=== PATIENT | female | born 1940 | race Caucasian/White ===

== ENCOUNTER → 2016-12-12 | Outpatient (CLI) | payer MEDICARE ==
--- NOTE | 2016-12-12 13:13 | REP ---
LIMITED ABDOMEN ULTRASOUND: HISTORY: Right upper quadrant pain. There are no filling defects in the gallbladder. The gallbladder wall measures 2.6 mm. The common bile duct measures 4.6 mm. The liver and pancreas are normal in echogenicity. The right kidney is normal in echogenicity. The right kidney measures 5.4 cm in transverse x 3.8 cm in AP x 11 cm in cephalocaudal dimensions. There is no hydronephrosis or mass. IMPRESSION: Normal abdominal ultrasound. Signed by Shade Foster MD 12/12/2016 01:34 P
== END ==
LOC: M RAD 08:56
PROVIDERS: ATTEND Internal Medicine Cardiovascular Disease
DX: I48.0 Paroxysmal atrial fibrillation (principal); I71.2 Thoracic aortic aneurysm, without rupture; R42 Dizziness and giddiness; I10 Essential (primary) hypertension; E66.9 Obesity, unspecified; R06.02 Shortness of breath; R07.9 Chest pain, unspecified

== ENCOUNTER → 2017-05-07 | Outpatient (REF) | payer MEDICARE ==
[2017-05-07 21:11] LABS: BASO # 0.1 10^3/uL (0.0-0.2); BASO % 1.5 % (0.0-1.0); EOS # 0.1 10^3/uL (0.0-0.50); EOS % 1.7 % (0.0-3.0); IMMATURE GRANULOCYTE % 0.2 % (0-0); LYMPH # 1.8 10^3/uL (1.5-4.5); LYMPH % 34.9 % (24.0-44.0); MEAN CORPUSCULAR HEMOGLOBIN 30.2 pg (27.0-33.0); MEAN CORPUSCULAR VOLUME 94.3 fl (80.0-96.0); MONO # 0.3 10^3/uL (0.0-0.8); MONO % 5.1 % (0.0-5.0); NEUTROPHILS % 56.6 % (36.0-66.0); PLATELET COUNT, AUTOMATED 181 10^3/uL (150-450); RED CELL DISTRIBUTION WIDTH 13.6 % (11.5-14.5); WHITE BLOOD COUNT 5.3 10^3/uL (4.0-10.0)
[2017-05-07 21:27] LABS: FOLATE 19.5 NG/ML; VITAMIN B12 LEVEL 291 PG/ML
[2017-05-07 21:33] LABS: ALBUMIN 3.6 GM/DL (3.2-5.2); ALBUMIN/GLOBULIN RATIO 1.03 (1.00-1.93); ALKALINE PHOSPHATASE 77 U/L (45-117); ALT/SGPT 15 U/L (12-78); ANION GAP 8 MEQ/L (8-16); AST/SGOT 9 U/L (15-37); BILIRUBIN,TOTAL 0.4 MG/DL (0.2-1.0); BLOOD UREA NITROGEN 17 MG/DL (7-18); CALCIUM LEVEL 8.7 MG/DL (8.8-10.2); CARBON DIOXIDE LEVEL 28 MEQ/L (21-32); CHLORIDE LEVEL 108 MEQ/L (98-107); CREATININE FOR GFR 0.76 MG/DL (0.55-1.02); GLOMERULAR FILTRATION RATE > 60.0 (>39); GLUCOSE, FASTING 140 MG/DL (83-110); POTASSIUM SERUM 3.6 MEQ/L (3.5-5.1); SODIUM LEVEL 144 MEQ/L (136-145); TOTAL PROTEIN 7.1 GM/DL (6.4-8.2)
[2017-05-07 21:41] LABS: ERYTHROCYTE SEDIMENTATION RATE 30 mm/hr (0-30)
[2017-05-09 12:07] LABS: ALBUMIN % 58.4 % (55.8-66.1)
[2017-05-09 12:08] LABS: ALBUMIN 4.15 GM/DL (3.29-5.55); GAMMA GLOBULIN % 16.7 % (11.1-18.8)
[2017-05-14 08:06] LABS: SJOGREN'S ANTI SS-A <0.2 AI (0.0-0.9); SJOGREN'S ANTI SS-B <0.2 AI (0.0-0.9); VITAMIN E LEVEL 27.7 mg/L (6.5-21.5)
== END ==
LOC: M LABDRAWC 17:34
PROVIDERS: ATTEND Psychiatry & Neurology Neurology
DX: R42 Dizziness and giddiness (principal); Z79.899 Other long term (current) drug therapy

== ENCOUNTER → 2017-06-20 | Outpatient (REF) | payer MEDICARE ==
[2017-06-21 12:00] LABS: THYROID PEROXIDASE ANTIBODY < 28.0 U/ML (<60.0)
[2017-06-22 00:14] LABS: FREE T4 0.78 NG/DL (0.76-1.46)
== END ==
LOC: M SFHCCLAY 15:49
PROVIDERS: ATTEND Family Medicine
DX: E04.2 Nontoxic multinodular goiter (principal)
CPT/HCPCS: 84439; 84481; 86376; 86800; G0463

== ENCOUNTER 2017-06-27 11:38 | Outpatient (CLI) | payer MEDICARE ==
--- NOTE | 2017-06-27 14:34 | REP ---
MR angiography the brain without contrast: History: Dizziness. Tension headaches. Technique: 3-D [id number] MR angiography of the brain is acquired in the usual fashion and maximal intensity projection images were generated in rotational format about the vertical and horizontal axes. In addition, source axial T1-weighted images are viewed in cine mode. MR angiographic findings: The distal vertebral arteries are patent and co-dominant. Basilar artery is a little tortuous but widely patent. The posterior cerebral and superior cerebellar vessels are normal and symmetric. The distal internal carotid arteries are unremarkable. Anterior and middle cerebral arteries appear intact. There is no visible ward aneurysm or arteriovenous malformation. Impression: Unremarkable MR angiography the brain. Signed by Leoncio Tellez MD 06/27/2017 02:26 P
[2017-06-27 16:15] VITALS: BP 154/65
--- NOTE | 2017-06-27 16:22 | REP ---
MRI brain without contrast: History: Dizziness. Tension headache. Comparison CT brain study is from March 12, 2016. Technique: Axial and sagittal imaging planes are utilized for T1 and T2-weighted scans. Sequences include spin-echo, fast spin echo, FLAIR, and diffusion weighted sequences. MRI findings: Bony calvarium is intact. Craniocervical junction and upper cervical cord are normal in appearance. There is no MR evidence of significant paranasal sinus disease. No intraorbital abnormality is seen. Diffusion weighted scan show no evidence of acute ischemia. There is a focus of hemosiderin staining, 0.8 cm in greatest diameter, in the vermis of the cerebellum. This is in the midline at the top of the tentorial notch. It is compatible with a vascular malformation such as cavernoma. This is compatible with old hemosiderin deposition from previous hemorrhage. There is no evidence of acute hemorrhage. No mass effect or enlargement is seen. There are small vessel atherosclerotic changes in the periventricular white matter of the frontal lobes bilaterally. There is prominent hyperostosis frontalis interna and diffuse thickening of the bony calvarium as seen on CT study. No extra-axial fluid collection is seen. No mass or midline shift is observed. Impression: 1. 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 This measures 8 mm in greatest diameter. 2. Diffuse calvarial thickening and hyperostosis frontalis interna. 3. Small vessel changes. 4. Otherwise negative MRI study of the brain. Signed by Leoncio Tellez MD 06/28/2017 08:15 A
--- NOTE | 2017-06-27 17:35 | REP ---
MR angiography of the carotids without and with IV gadolinium: History: Dizziness. Tension headache. Technique: 2-D [id number] pre contrast and 3-D post contrast MRA angiography imaging is acquired. Gadolinium enhancement dose is 25 ml of intravenous ProHance. Source axial and coronal images are reviewed. Maximal intensity projection images are generated. Findings: Postcontrast images show suboptimal vascular flow labeling and are largely uninterpretable. However, the precontrast images demonstrate that the distal common carotid arteries are widely patent. There is some plaquing in the right carotid bulb with 40% narrowing of the proximal ICA on the right side. No significant plaquing is visible on the left. The ICAs are otherwise unremarkable. The vertebral arteries are widely patent and codominant. On source images postcontrast, the great vessel origins are unremarkable. Impression: Right carotid bulb plaquing with approximately 40% narrowing of the origin of the right ICA. No high-grade stenosis seen on either side. Signed by Leoncio Tellez MD 06/28/2017 08:16 A
== END 2017-06-27 16:21 | disposition home or self-care (01) ==
LOC: M RAD 11:38
PROVIDERS: ATTEND Psychiatry & Neurology Neurology
DX: G44.209 Tension-type headache, unspecified, not intractable (principal); R42 Dizziness and giddiness; M50.30 Other cervical disc degeneration, unspecified cervical region
CPT/HCPCS: 70544; 70549; 70551; 72141; A9576

== ENCOUNTER → 2017-06-27 | Outpatient (CLI) | payer MEDICARE ==
[~2017-06-27] MED LIST: PROHANCE 279.3MG/ML 15ML VIAL (A9576) As Ordered ONE
--- NOTE | 2017-06-27 16:43 | REP ---
MRI cervical spine without contrast: History: Neck pain question disc herniation. Technique: Sagittal and axial T1 and T2-weighted scans are acquired in the usual fashion with and without fat saturation. Sequences include spin echo, turbo spin-echo, and STIR imaging sequences. MRI findings: Incidental note is made of a 6.5 cm heterogeneous T2 hyperintense partially cystic nodule in the right lobe of the thyroid. The left thyroid lobe is somewhat heterogeneous as well. The trachea is displaced to the left by the right thyroid lesion. There is straightening of the normal cervical lordosis. Craniocervical junction is unremarkable. Cervical cord is normal in coarse caliber and signal intensity. Axial and sagittal images at the C2-3 level show no significant abnormality. At C3-4, there is borderline canal size. Minimal diffuse disc bulging is seen. There is mild uncovertebral spurring on the left. Mid sagittal AP dimension of the thecal sac at C3-4 is 9 mm. At C4-5, there is mild central canal stenosis due to bulging disc and osteophytic ridging. The mid sagittal dimension of the thecal sac is 6 mm. CSF signal is effaced from the canal. There is right greater than left bilateral uncovertebral spurring. Diffuse disc bulging. At C 5-6, there are similar findings with diffuse disc bulging and osteophytic ridging. Central canal stenosis is seen with mild cord compression. Mid sagittal dimension of the thecal sac is 6 mm. There is bilateral uncovertebral spurring producing neural foraminal narrowing. At C6-C7, there is mild diffuse disc bulging and osteophytic ridging. No cord compression is seen. There is mild right-sided uncovertebral spurring. C7-T1 level shows no significant abnormality. Impression: 1. Degenerative spondylosis changes. 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 Multilevel uncovertebral spurring producing neural foraminal narrowing. 2. Incidental note is made of a 6.5 cm right thyroid nodule versus cyst. This displaces the trachea to the left. Signed by Leoncio Tellez MD 06/28/2017 08:15 A
== END ==
LOC: M RAD 11:47
PROVIDERS: ATTEND Orthopaedic Surgery
DX: M50.30 Other cervical disc degeneration, unspecified cervical region (principal)

== ENCOUNTER → 2017-07-11 | Outpatient (CLI) | payer MEDICARE ==
[2017-07-11 16:26] LABS: ANION GAP 5 MEQ/L (8-16); BLOOD UREA NITROGEN 13 MG/DL (7-18); CALCIUM LEVEL 8.4 MG/DL (8.8-10.2); CARBON DIOXIDE LEVEL 31 MEQ/L (21-32); CHLORIDE LEVEL 108 MEQ/L (98-107); CREATININE FOR GFR 0.53 MG/DL (0.55-1.02); GLOMERULAR FILTRATION RATE > 60.0 (>39); GLUCOSE, FASTING 103 MG/DL (83-110); POTASSIUM SERUM 3.6 MEQ/L (3.5-5.1); SODIUM LEVEL 144 MEQ/L (136-145)
== END ==
LOC: M LAB 14:36
DX: Z01.812 Encounter for preprocedural laboratory examination (principal); G56.01 Carpal tunnel syndrome, right upper limb
CPT/HCPCS: 80048

== ENCOUNTER → 2017-07-17 | Outpatient (REF) | payer MEDICARE | LOC: M SFHCCLAY 11:12 | DX: M79.661 Pain in right lower leg (principal); Z53.8 Procedure and treatment not carried out for other reasons ==

== ENCOUNTER → 2017-07-18 | Outpatient (REF) | payer MEDICARE ==
[2017-07-18 12:40] LABS: D-DIMER QUANT 488.7 ng/ml (<500)
== END ==
LOC: M LABDRAW1 10:04
DX: M79.661 Pain in right lower leg (principal)
CPT/HCPCS: 36415

== ENCOUNTER → 2017-12-26 | Outpatient (REF) | payer MEDICARE ==
[2017-12-26 16:49] LABS: HEMATOCRIT 39.5 % (36.0-47.0); HEMOGLOBIN 12.7 g/dl (12.0-15.5); MEAN CORPUSCULAR HEMOGLOBIN 29.7 pg (27.0-33.0); MEAN CORPUSCULAR HGB CONC 32.2 g/dl (32.0-36.5); MEAN CORPUSCULAR VOLUME 92.5 fl (80.0-96.0); PLATELET COUNT, AUTOMATED 180 10^3/uL (150-450); RED BLOOD COUNT 4.27 10^6/uL (4.00-5.40); RED CELL DISTRIBUTION WIDTH 13.5 % (11.5-14.5); WHITE BLOOD COUNT 6.4 10^3/uL (4.0-10.0)
[2017-12-26 16:57] LABS: VITAMIN B12 LEVEL 194 PG/ML (247-911)
[2017-12-26 17:01] LABS: ALBUMIN 3.6 GM/DL (3.2-5.2); ALBUMIN/GLOBULIN RATIO 1.06 (1.00-1.93); ALKALINE PHOSPHATASE 78 U/L (45-117); ALT/SGPT 15 U/L (12-78); ANION GAP 8 MEQ/L (8-16); AST/SGOT 12 U/L (7-37); BILIRUBIN,TOTAL 0.4 MG/DL (0.2-1.0); BLOOD UREA NITROGEN 14 MG/DL (7-18); CALCIUM LEVEL 8.6 MG/DL (8.8-10.2); CARBON DIOXIDE LEVEL 28 MEQ/L (21-32); CHLORIDE LEVEL 112 MEQ/L (98-107); CREATININE FOR GFR 0.68 MG/DL (0.55-1.30); FREE T4 0.88 NG/DL (0.76-1.46); GLOMERULAR FILTRATION RATE > 60.0 (>39); GLUCOSE, FASTING 97 MG/DL (70-100); POTASSIUM SERUM 4.1 MEQ/L (3.5-5.1); SODIUM LEVEL 148 MEQ/L (136-145); THYROID STIMULATING HORMONE 0.407 uIU/ML (0.358-3.740)
== END ==
LOC: M SFHCCLAY 12:07
DX: J45.20 Mild intermittent asthma, uncomplicated (principal); R53.82 Chronic fatigue, unspecified
CPT/HCPCS: 84443

== ENCOUNTER → 2018-05-22 | Outpatient (CLI) | payer MEDICARE | LOC: M SLEEP 19:22 | DX: G47.33 Obstructive sleep apnea (adult) (pediatric) (principal); G47.61 Periodic limb movement disorder | CPT/HCPCS: 95810 ==

== ENCOUNTER → 2018-05-26 | Outpatient (REF) | payer MEDICARE ==
[2018-05-26 17:49] LABS: BASO # 0.1 10^3/uL (0.0-0.2); BASO % 1.5 % (0.0-1.0); EOS # 0.1 10^3/uL (0.0-0.50); EOS % 2.3 % (0.0-3.0); HEMATOCRIT 39.8 % (36.0-47.0); HEMOGLOBIN 12.7 g/dl (12.0-15.5); IMMATURE GRANULOCYTE % 0.2 % (0-3.0); LYMPH # 1.9 10^3/uL (1.5-4.5); LYMPH % 31.2 % (24.0-44.0); MEAN CORPUSCULAR HEMOGLOBIN 30.2 pg (27.0-33.0); MEAN CORPUSCULAR HGB CONC 31.9 g/dl (32.0-36.5); MEAN CORPUSCULAR VOLUME 94.5 fl (80.0-96.0); MONO # 0.4 10^3/uL (0.0-0.8); MONO % 6.4 % (0.0-5.0); NEUTROPHILS # 3.5 10^3/uL (1.8-7.7); NEUTROPHILS % 58.4 % (36.0-66.0); PLATELET COUNT, AUTOMATED 195 10^3/uL (150-450); RED BLOOD COUNT 4.21 10^6/uL (4.00-5.40); RED CELL DISTRIBUTION WIDTH 13.1 % (11.5-14.5)
[2018-05-26 18:00] LABS: ALBUMIN 3.6 GM/DL (3.2-5.2); ALBUMIN/GLOBULIN RATIO 1.09 (1.00-1.93); ALKALINE PHOSPHATASE 73 U/L (45-117); ALT/SGPT 17 U/L (12-78); ANION GAP 6 MEQ/L (8-16); AST/SGOT 12 U/L (7-37); BILIRUBIN,TOTAL 0.4 MG/DL (0.2-1.0); BLOOD UREA NITROGEN 12 MG/DL (7-18); CALCIUM LEVEL 9.1 MG/DL (8.8-10.2); CARBON DIOXIDE LEVEL 29 MEQ/L (21-32); CHLORIDE LEVEL 110 MEQ/L (98-107); CREATININE FOR GFR 0.69 MG/DL (0.55-1.30); GLOMERULAR FILTRATION RATE > 60.0 (>39); GLUCOSE, FASTING 117 MG/DL (70-100); POTASSIUM SERUM 3.8 MEQ/L (3.5-5.1); SODIUM LEVEL 145 MEQ/L (136-145); TOTAL PROTEIN 6.9 GM/DL (6.4-8.2)
== END ==
LOC: M SFHCCLAY 10:05
DX: R07.89 Other chest pain (principal); R06.02 Shortness of breath
CPT/HCPCS: 80053

== ENCOUNTER → 2018-05-26 | Outpatient (CLI) | payer MEDICARE | LOC: M CLY 10:23 | DX: I51.7 Cardiomegaly (principal); E04.9 Nontoxic goiter, unspecified; R07.89 Other chest pain; R06.02 Shortness of breath | CPT/HCPCS: 71046; 80053 ==

== ENCOUNTER → 2018-05-26 | Outpatient (REF) | payer MEDICARE ==
[2018-05-26 17:11] LABS: BLOOD UREA NITROGEN 13 MG/DL (7-18)
[2018-05-26 17:11] LABS: CREATININE FOR GFR 0.67 MG/DL (0.55-1.30); GLOMERULAR FILTRATION RATE > 60.0 (>39)
== END ==
LOC: M LABDRAWC 16:25
DX: Q28.3 Other malformations of cerebral vessels (principal)
CPT/HCPCS: 36415

== ENCOUNTER → 2018-07-23 | Outpatient (REF) | payer MEDICARE ==
[2018-07-24 13:05] LABS: HEMATOCRIT 39.1 % (36.0-47.0); HEMOGLOBIN 12.6 g/dl (12.0-15.5); MEAN CORPUSCULAR HEMOGLOBIN 29.8 pg (27.0-33.0); MEAN CORPUSCULAR HGB CONC 32.2 g/dl (32.0-36.5); MEAN CORPUSCULAR VOLUME 92.4 fl (80.0-96.0); PLATELET COUNT, AUTOMATED 195 10^3/uL (150-450); RED BLOOD COUNT 4.23 10^6/uL (4.00-5.40); WHITE BLOOD COUNT 6.8 10^3/uL (4.0-10.0)
[2018-07-24 13:19] LABS: ALBUMIN 3.3 GM/DL (3.2-5.2); ALT/SGPT 16 U/L (12-78); BILIRUBIN,TOTAL 0.2 MG/DL (0.2-1.0); BLOOD UREA NITROGEN 13 MG/DL (7-18); CALCIUM LEVEL 8.2 MG/DL (8.8-10.2); CARBON DIOXIDE LEVEL 27 MEQ/L (21-32); CHLORIDE LEVEL 109 MEQ/L (98-107); CHOLESTEROL LEVEL 231 MG/DL (<200); CREATININE FOR GFR 0.73 MG/DL (0.55-1.30); GLOMERULAR FILTRATION RATE > 60.0 (>39); GLUCOSE, FASTING 105 MG/DL (70-100); HDL CHOLESTEROL 44 MG/DL (>40); LDL CHOLESTEROL 153 MG/DL (<100); NON-HDL-C 187 MG/DL; NT-PRO BNP 431 PG/ML (<450); SODIUM LEVEL 144 MEQ/L (136-145); TOTAL PROTEIN 6.7 GM/DL (6.4-8.2); TRIGLYCERIDES LEVEL 169 MG/DL (<150)
== END ==
LOC: M LABDRAWC 11:13
PROVIDERS: ATTEND Internal Medicine Cardiovascular Disease
DX: I48.0 Paroxysmal atrial fibrillation (principal); I71.2 Thoracic aortic aneurysm, without rupture; R42 Dizziness and giddiness; I10 Essential (primary) hypertension; E66.9 Obesity, unspecified; R06.02 Shortness of breath; R07.9 Chest pain, unspecified

== ENCOUNTER 2018-08-30 15:10 | Emergency (ER) | payer MEDICARE ==
[~2018-08-30] VITALS: Ht 165.1 cm; Wt 99.3 kg
[2018-08-30 15:46] LABS: BASO # 0.1 10^3/uL (0.0-0.2); BASO % 1.4 % (0.0-1.0); EOS # 0.1 10^3/uL (0.0-0.50); EOS % 1.8 % (0.0-3.0); HEMATOCRIT 39.5 % (36.0-47.0); HEMOGLOBIN 12.8 g/dl (12.0-15.5); LYMPH # 1.6 10^3/uL (1.5-4.5); LYMPH % 29.2 % (24.0-44.0); MEAN CORPUSCULAR HEMOGLOBIN 30.3 pg (27.0-33.0); MEAN CORPUSCULAR HGB CONC 32.4 g/dl (32.0-36.5); MEAN CORPUSCULAR VOLUME 93.6 fl (80.0-96.0); MONO # 0.5 10^3/uL (0.0-0.8); MONO % 8.7 % (0.0-5.0); NEUTROPHILS # 3.2 10^3/uL (1.8-7.7); NEUTROPHILS % 58.7 % (36.0-66.0); PLATELET COUNT, AUTOMATED 190 10^3/uL (150-450); RED BLOOD COUNT 4.22 10^6/uL (4.00-5.40); WHITE BLOOD COUNT 5.5 10^3/uL (4.0-10.0)
[2018-08-30 16:16] LABS: BLOOD UREA NITROGEN 13 MG/DL (7-18); CALCIUM LEVEL 8.6 MG/DL (8.8-10.2); CARBON DIOXIDE LEVEL 29 MEQ/L (21-32); CHLORIDE LEVEL 109 MEQ/L (98-107); CPK CREATINE PHOSPHOKINASE 65 U/L (26-192); CREATININE FOR GFR 0.82 MG/DL (0.55-1.30); GLOMERULAR FILTRATION RATE > 60.0 (>32); GLUCOSE, FASTING 114 MG/DL (70-100); POTASSIUM SERUM 3.8 MEQ/L (3.5-5.1); SODIUM LEVEL 145 MEQ/L (136-145); TROPONIN I < 0.02 NG/ML (< 0.10)
[2018-08-30] MEDS ORDERED: GI COCKTAIL 50ML BTL(HYOSCYAMINE/MAALOX/LIDOCAINE VISCOUS)(1:3:1) PO ONE (16:30)
[2018-08-30 16:49] LABS: ALBUMIN 3.2 GM/DL (3.2-5.2); ALT/SGPT 15 U/L (12-78); BILIRUBIN,DIRECT < 0.1 MG/DL (0.0-0.2); BILIRUBIN,TOTAL 0.2 MG/DL (0.2-1.0); LIPASE 144 U/L (73-393); TOTAL PROTEIN 6.9 GM/DL (6.4-8.2)
[2018-08-30 17:56] LABS: INFLUENZA A AMPLIFICATION NEGATIVE (NEGATIVE); INFLUENZA B AMPLIFICATION NEGATIVE (NEGATIVE)
[2018-08-30 19:24] VITALS: BP 144/83
--- NOTE | 2018-08-31 08:11 | REP ---
AP PORTABLE CHEST: 08/30/2018. COMPARISON: 05/26/2018 chest x-ray. CLINICAL HISTORY: Chest pain. FINDINGS: Mild cardiomegaly suggested. I see no vascular redistribution. There is no pleural effusion or acute infiltrate. Some underlying fibrosis noted. The aorta is mildly tortuous and calcified, unchanged. Right thyroid enlargement displaces the trachea to the left as on the previous study. Postsurgical chronic changes in the shoulders and AC joints, as before. No free air. IMPRESSION: 1. Cardiomegaly without pulmonary edema, pleural effusion, or definite infiltrate. There is underlying fibrosis. 2. Tortuous calcified aorta and an enlarged right thyroid lobe displacing the trachea to the left, unchanged. 3. Degenerative changes in the spine and bilateral chronic shoulder changes, right greater than left but stable. Electronically Signed by Sebastian Hadley MD 08/31/2018 08:25 A
--- NOTE | 2018-08-31 16:30 | ECGEPIP ---
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
== END 2018-08-30 19:25 | disposition home or self-care (01) ==
LOC: M ED 15:10 → EDBD 15:10 → M ED 19:25
DX: R10.13 Epigastric pain (principal); I48.91 Unspecified atrial fibrillation; R94.31 Abnormal electrocardiogram [ECG] [EKG]; J45.909 Unspecified asthma, uncomplicated; K58.9 Irritable bowel syndrome, unspecified; K21.9 Gastro-esophageal reflux disease without esophagitis; I10 Essential (primary) hypertension; I51.7 Cardiomegaly; Q25.46 Tortuous aortic arch; E04.9 Nontoxic goiter, unspecified; M51.9 Unspecified thoracic, thoracolumbar and lumbosacral intervertebral disc disorder; M19.019 Primary osteoarthritis, unspecified shoulder

== ENCOUNTER → 2018-12-16 | Outpatient (CLI) | payer MEDICARE ==
--- NOTE | 2018-12-16 12:38 | REP ---
HIDA SCAN WITH GALLBLADDER EJECTION FRACTION: Following the intravenous administration of 6.5 mCi technetium 99m mebrofenin, multiple images of the right upper quadrant are performed every 5 minutes for a period of 1 hour. Liver demonstrates no parenchymal defect. There is visualization of the gallbladder at 15 minutes postinjection. There is [id number] transit at 20 minutes postinjection with no scintigraphic evidence of cholecystitis. At the 1-hour blanka, 8 ounces of Ensure Enlive is ingested and further imaging performed for 1 hour. Gallbladder ejection fraction is calculated to be 70%, which is normal. IMPRESSION: Normal gallbladder ejection fraction. Electronically Signed by Sanjay Corea MD 12/18/2018 08:35 A
== END ==
LOC: M RAD 08:16
PROVIDERS: ATTEND Internal Medicine Gastroenterology
DX: R10.13 Epigastric pain (principal)
CPT/HCPCS: 78227; A9537; J2805

== ENCOUNTER 2019-01-28 09:49 | Day surgery (SDC) | payer MEDICARE ==
[~2019-01-28] VITALS: Ht 165.1 cm; Wt 98.0 kg
[~2019-01-28 09:49] MED LIST changes: +AMLO2.5T3 PO; +CYAN500T8 PO; +FURO20TA2 PO; +GNPTAB94 PO; +NS 1,000 ML IV ONE; +OPTI0.5D5 OP; +PRES10CA2 PO; -PROHANCE 279.3MG/ML 15ML VIAL (A9576) As Ordered ONE; +TYLE650T35 PO; +VENTAER INH; +XARE20TA PO
[2019-01-28] MEDS ORDERED: LIDOCAINE 2% INJ 100 MG/5 ML SDV (FOR ANES.) As Ordered ONE (10:48)
[2019-01-28] MEDS ORDERED: PROPOFOL 200 MG/20 ML VIAL As Ordered ONE (10:48)
[2019-01-28] MEDS ORDERED: fentaNYL 100 MCG/2 ML INJECTION (J3010) As Ordered ONE (11:42)
--- NOTE | 2019-01-28 12:35 | ROOR ---
Patient Name: Donna Nayak Procedure Date: 01/28/2019 11:47 AM Date of : 1940 Age: 78 Room: [facility] Gender: Female Note Status: Finalized Procedure: Upper GI endoscopy Indications: Epigastric abdominal pain, Chest pain (non cardiac) Providers: Ash Gilmore MD Referring MD: Souleymane Cox MD Requesting Provider: Medicines: Monitored Anesthesia Care Complications: No immediate complications. Procedure: Pre-Anesthesia Assessment: - The heart rate, respiratory rate, oxygen saturations, blood pressure, adequacy of pulmonary ventilation, and response to care were monitored throughout the procedure. The Endoscope was introduced through the mouth, and advanced to the second part of duodenum. The upper GI endoscopy was accomplished without difficulty. The patient tolerated the procedure well. Findings: The Z-line was regular and was found 40 cm from the incisors. Multiple biopsies were obtained with cold forceps for evaluation to rule out Nunez's Esophagus randomly at the gastroesophageal junction. No other significant abnormalities were identified in a careful examination of the stomach. Mucosal changes were found in the entire esophagus. Biopsies were taken with a cold forceps for histology. No other significant abnormalities were identified in a careful examination of the stomach. Biopsies were taken with a cold forceps in the gastric antrum for Helicobacter pylori testing. The exam of the duodenum was otherwise normal. Impression: - Z-line regular, 40 cm from the incisors. - Esophageal mucosal changes. Biopsied. - Multiple biopsies were obtained at the gastroesophageal junction. - Biopsies were taken with a cold forceps for Helicobacter pylori testing. - The examination was otherwise normal. Recommendation: - Patient has a contact number available for emergencies. The signs and symptoms of potential delayed complications were discussed with the patient. Return to normal activities tomorrow. Written discharge instructions were provided to the patient. - High fiber diet. - Discharge patient to home. - Follow an antireflux regimen. - Continue present medications. - Await pathology results. - Telephone GI clinic for pathology results in 1 week. - Return to referring physician. - Check Portal Online for Path Results.([email or web address]) - The findings and recommendations were discussed with the patient's family. Ash Gilmore MD Ash Gilmore MD 01/28/2019 12:35:23 PM Electronically signed by Ash Gilmore MD Number of Addenda: 0 Note Initiated On: 01/28/2019 11:47 AM Estimated Blood Loss: Estimated blood loss: none.
--- NOTE | 2019-01-28 12:39 | ROOR ---
Patient Name: Donna Nayak Procedure Date: 01/28/2019 11:48 AM Date of : 1940 Age: 78 Room: [facility] Gender: Female Note Status: Finalized Procedure: Total Colonoscopy to Cecum + Cold Snare Polypectomy + Hemoclips Indications: High risk colon cancer surveillance: Personal history of colonic polyps, Incidental - Rectal bleeding Providers: Ash Gilmore MD Referring MD: Nevaeh Cox Requesting Provider: Medicines: Monitored Anesthesia Care Complications: No immediate complications. Procedure: Pre-Anesthesia Assessment: - The heart rate, respiratory rate, oxygen saturations, blood pressure, adequacy of pulmonary ventilation, and response to care were monitored throughout the procedure. The Colonoscope was introduced through the anus and advanced to the cecum, identified by appendiceal orifice and ileocecal valve. The colonoscopy was performed without difficulty. The patient tolerated the procedure well. The quality of the bowel preparation was excellent. Findings: The perianal and digital rectal examinations were normal. Non-bleeding internal hemorrhoids were found during retroflexion. The hemorrhoids were small and Grade I (internal hemorrhoids that do not prolapse). A medium polyp was found at 40 cm proximal to the anus. The polyp was sessile. The polyp was removed with a cold snare. Resection and retrieval were complete. To prevent bleeding after the polypectomy, one hemostatic clip was successfully placed (MR conditional). There was no bleeding at the end of the procedure. Two sessile polyps were found in the ascending colon, proximal ascending colon and mid ascending colon. The polyps were medium in size. These polyps were removed with a cold snare. Resection and retrieval were complete. To prevent bleeding after the polypectomy, five hemostatic clips were successfully placed (MR conditional). There was no bleeding at the end of the procedure. The exam was otherwise without abnormality on direct and retroflexion views. Impression: - Non-bleeding internal hemorrhoids. - One medium polyp at 40 cm proximal to the anus, removed with a cold snare. Resected and retrieved. Clip (MR conditional) was placed. - Two medium polyps in the ascending colon, in the proximal ascending colon and in the mid ascending colon, removed with a cold snare. Resected and retrieved. Clips (MR conditional) were placed. - The examination was otherwise normal on direct and retroflexion views. - The exam was otherwise normal to the cecum. Recommendation: - Patient has a contact number available for emergencies. The signs and symptoms of potential delayed complications were discussed with the patient. Return to normal activities tomorrow. Written discharge instructions were provided to the patient. - High fiber diet. - Discharge patient to home. - Continue present medications. - Await pathology results. - Repeat colonoscopy for symptoms only. - Return to referring physician. - The findings and recommendations were discussed with the patient's family. Ash Gilmore MD Ash Gilmore MD 01/28/2019 12:39:25 PM Electronically signed by Ash Gilmore MD Number of Addenda: 0 Note Initiated On: 01/28/2019 11:48 AM Estimated Blood Loss: Estimated blood loss: none.
[2019-01-28 13:06] VITALS: BP 153/70
== END 2019-01-28 13:09 | disposition home or self-care (01) ==
LOC: M OPP 09:49
PROVIDERS: ATTEND Internal Medicine Gastroenterology
DX: Z12.11 Encounter for screening for malignant neoplasm of colon (principal); Z86.010 Personal history of colon polyps; K64.0 First degree hemorrhoids; D12.2 Benign neoplasm of ascending colon; K22.8 Other specified diseases of esophagus; R10.13 Epigastric pain; R07.89 Other chest pain; Z79.899 Other long term (current) drug therapy
CPT/HCPCS: 43239; 45385; 88305; J3010

== ENCOUNTER 2019-03-27 15:29 | Observation (INO) | payer MEDICARE ==
[~2019-03-27] VITALS: Ht 165.1 cm; Wt 95.4 kg
[~2019-03-27 15:29] MED LIST changes: -NS 1,000 ML IV ONE; -OPTI0.5D5 OP; +OPTI0.5D5 OU
[2019-03-27] MEDS ORDERED: ESOM40CA35 PO (15:54)
[2019-03-27 16:38] LABS: BASO # 0.1 10^3/uL (0.0-0.2); BASO % 1.2 % (0.0-1.0); EOS # 0.1 10^3/uL (0.0-0.5); EOS % 1.8 % (0.0-3.0); HEMATOCRIT 40.6 % (36.0-47.0); LYMPH % 34.8 % (24.0-44.0); MEAN CORPUSCULAR VOLUME 93.8 fl (80.0-96.0); MONO # 0.5 10^3/uL (0.0-0.8); MONO % 8.6 % (0.0-5.0); NEUTROPHILS % 53.2 % (36.0-66.0); PLATELET COUNT, AUTOMATED 189 10^3/uL (150-450); RED BLOOD COUNT 4.33 10^6/uL (4.00-5.40); WHITE BLOOD COUNT 5.6 10^3/uL (4.0-10.0)
[2019-03-27] MEDS ORDERED: ISOVUE-370 76% 100ML VIAL (Q9967) As Ordered ONE (16:38)
[2019-03-27 16:48] LABS: INR 1.55; PROTHROMBIN TIME 18.3 SECONDS (11.8-14.0)
[2019-03-27 16:49] LABS: PARTIAL THROMBOPLASTIN TIME 34.3 SECONDS (25.0-38.4)
--- NOTE | 2019-03-27 17:03 | REP ---
Duplex extremity venous ultrasound: Bilateral lower extremity. History: Bilateral lower extremity pain, rule out DVT. Lower leg swelling. Findings: The deep veins are anechoic and fully compressible from the groin to the popliteal fossa in the left and right lower extremity. Color flow imaging is homogeneous. Spectral Doppler interrogation demonstrates intact respiratory variation in flow and normal manual augmentation of flow. There is no evidence of deep vein thrombosis. Impression: Negative bilateral lower extremity duplex venous ultrasound. No evidence of deep vein thrombosis. Electronically Signed by Leoncio Tellez MD 03/27/2019 04:54 P
[2019-03-27 17:18] LABS: ALBUMIN 3.5 GM/DL (3.2-5.2); ALT/SGPT 17 U/L (12-78); BILIRUBIN,DIRECT < 0.1 MG/DL (0.0-0.2); BILIRUBIN,TOTAL 0.2 MG/DL (0.2-1.0); CK-MB VALUE MASS 1.8 NG/ML (<3.6); CPK CREATINE PHOSPHOKINASE 79 U/L (26-192); LIPASE 139 U/L (73-393); MB/CK RELATIVE INDEX 2.28 (< OR =4); NT-PRO BNP 2483 PG/ML (<450); TOTAL PROTEIN 6.6 GM/DL (6.4-8.2); TROPONIN I < 0.02 NG/ML (< 0.10)
--- NOTE | 2019-03-27 17:53 | REP ---
HISTORY: Dyspnea and chest pain. COMPARISON: 08/30/2018 The technique utilized in obtaining the radiograph has magnified the cardiac silhouette and accentuated the interstitial markings. There is cardiomegaly accentuated by technique. There is widening of the superior mediastinum, possibly secondary to a large goiter. This is essentially unchanged. There is mild fibrotic change, status quo. No acute patchy parenchymal opacities or pleural effusions have developed. Stable chronic changes are seen involving the imaged spine and shoulders, right greater than left. IMPRESSION: Stable appearing chronic changes without plain radiographic evidence of acute cardiopulmonary disease. Electronically Signed by Haseeb Scott DO 03/27/2019 06:15 P
--- NOTE | 2019-03-27 17:59 | REPVR ---
EXAM: CT Angiography Chest With Contrast EXAM DATE/TIME: 03/27/2019 4:50 PM CLINICAL HISTORY: 78 years old, female; Shortness of breath; Additional info: SOB R/O pe TECHNIQUE: Imaging protocol: Computed tomographic angiography of the chest with intravenous contrast. 3D rendering: MIP reconstructed images were created and reviewed. Radiation optimization: All CT scans at this facility use at least one of these dose optimization techniques: automated exposure control; mA and/or kV adjustment per patient size (includes targeted exams where dose is matched to clinical indication); or iterative reconstruction. Contrast material: ISOVUE 370; Contrast volume: 100 ml; Contrast route: IV; COMPARISON: CR PORTABLE CHEST X-RAY 08/30/2018 3:48 PM FINDINGS: Pulmonary arteries: Mild prominence of the main pulmonary arterial trunk, suggestive of pulmonary hypertension. No evidence of pulmonary embolism. Aorta: Mild atherosclerotic change of the thoracic aorta. Fusiform ectasia of the ascending thoracic aorta, measuring 4.4 cm x 4.1 cm. Thyroid: Low density thyroid lesions, measuring up to 5.2 cm x 5.0 cm within the right thyroid lobe. Mild leftward deviation of the trachea secondary to thyromegaly. Lungs: Mild patchy groundglass opacity in both lungs. Pleural space: Unremarkable. No pneumothorax. No pleural effusion. Heart: Moderate coronary artery calcifications. Lymph nodes: Unremarkable. No enlarged lymph nodes. Bones/joints: Benign enchondroma in the right humeral head. Bilateral sternoclavicular joint DJD. Degenerative change of the spine. Soft tissues: Unremarkable. IMPRESSION: 1. No evidence of pulmonary embolism. 2. Fusiform ectasia of the ascending thoracic aorta. 3. Prominence of the main pulmonary arterial trunk, suggestive of pulmonary hypertension. 4. Mild patchy groundglass opacity in both lungs, which may be due to edema or pneumonitis. 5. Indeterminate thyroid lesions. Recommend further evaluation with thyroid ultrasound. 6. Moderate coronary artery calcifications. COMMENT: In patients aged 35 years and older with an incidental thyroid nodule equal to or greater than 1.[address], MRI or extrathyroidal US, further evaluation with dedicated thyroid US is recommended for patients with normal life expectancy and without comorbidities. For smaller nodules without suspicious features, no further evaluation or follow up is recommended. Electronically signed by: Kaylan Schuler On 03/27/2019 17:58:43 PM
[2019-03-27] MEDS ORDERED: FUROSEMIDE 40 MG/4 ML VIAL (J1940) IV ONE (18:45)
[2019-03-27] MEDS ORDERED: METOPROLOL TART 25 MG TABLET PO ONE (20:00)
[2019-03-27] MEDS: METOPROLOL 5 MG/5 ML VIAL IV STA ×2 (20:04→20:13)
[2019-03-27] MEDS ORDERED: ACETAMINOPHEN TAB 650MG DOSE (2X325MG) PO PRN (21:45)
[2019-03-27 21:51] LABS: BLOOD UREA NITROGEN 18 MG/DL (7-18); CALCIUM LEVEL 8.9 MG/DL (8.8-10.2); CARBON DIOXIDE LEVEL 24 MEQ/L (21-32); CHLORIDE LEVEL 111 MEQ/L (98-107); CREATININE FOR GFR 0.86 MG/DL (0.55-1.30); GLOMERULAR FILTRATION RATE > 60.0 (>32); GLUCOSE, FASTING 119 MG/DL (70-100); POTASSIUM SERUM 3.7 MEQ/L (3.5-5.1); SODIUM LEVEL 145 MEQ/L (136-145)
[2019-03-28] VITALS (7 sets, daily range): BP systolic 104–171; BP diastolic 60–86
[2019-03-28 05:15] LABS: HEMOGLOBIN 13.4 g/dl (12.0-15.5); MEAN CORPUSCULAR HEMOGLOBIN 30.7 pg (27.0-33.0); MEAN CORPUSCULAR HGB CONC 32.7 g/dl (32.0-36.5); MEAN CORPUSCULAR VOLUME 93.8 fl (80.0-96.0); PLATELET COUNT, AUTOMATED 192 10^3/uL (150-450); RED BLOOD COUNT 4.37 10^6/uL (4.00-5.40); WHITE BLOOD COUNT 6.9 10^3/uL (4.0-10.0)
[2019-03-28 05:37] LABS: CK-MB VALUE MASS 1.6 NG/ML (<3.6); MAGNESIUM LEVEL 1.9 MG/DL (1.8-2.4); MB/CK RELATIVE INDEX 2.71 (< OR =4)
--- NOTE | 2019-03-28 05:52 | ECGEPIP ---
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
--- NOTE | 2019-03-28 08:43 | HPE ---
DATE OF ADMISSION: 03/27/2019 PRIMARY CARE PROVIDER: Dr. Cox EMPLOYMENT OFFICE CLERK: Dr. Roberson CHIEF COMPLAINT: Shortness of breath. This is an 78-year-old female with a history of atrial fibrillation who states that she has had shortness of breath, lightheadedness, and felt her heart fluttering and it has gotten worse over the last 48 hours. She was orthopneic. She would get lightheaded if she stood to do anything. She came to the emergency room. Upon arrival, her blood pressure was 151/72, pulse was 101, respiratory rate was 18, oxygen saturation (O2 sat) was 99% on room air, temperature was 97.8. An EKG was done that showed atrial fibrillation with a ventricular response of 79. LABORATORY STUDIES: Showed her glucose 122 nonfasting. Sodium 144, potassium 3.6, chloride 107, BUN 18, creatinine 0.86, CPK was 79, CK-MB was 1.8. Troponin was less than 0.02. Her BNP was 2483. Lipase was 139. TSH was 0.380. White count was 5.6, hemoglobin 13, hematocrit 40.6, platelets were 189. PT was 18.3, INR was 1.55, PTT was 34.3. She had some bilateral lower extremity edema, right greater than left. RADIOLOGY STUDIES: Vascular ultrasound bilaterally was negative for deep vein thrombosis (DVT). Chest x-ray stable appearing chronic changes without plain radiographic evidence of acute cardiopulmonary disease. Angiography CTA: No evidence of pulmonary embolism. Fusiform ectasia of the ascending thoracic aorta. Prominence of the main pulmonary arterial trunk suggestive of pulmonary hypertension. Mild patchy ground glass opacity in both lungs, which may be due to edema or pneumonitis. Indeterminate thyroid lesions. Recommend further evaluation with thyroid ultrasound. Moderate coronary artery calcifications. Patient was assessed, was being prepared for discharge, when she stood up she became lightheaded. Her heart rate remained atrial fibrillation. It went up to close to 150. They sat her back down, and it went back down to 90-100. The provider in the emergency room called aircraft instrument tester, Dr. Friend. He recommended 2.5 of Lopressor IV and metoprolol tartrate 25 mg. Her heart rate slowed back down to 80. She did not receive the 2.5, but she was given metoprolol tartrate 25 mg by mouth and 40 mg of IV Lasix. She urinated 300 mL. Heart rate has been 70s to 80s. Assessment was done and Dr. Friend recommended admission. The patient will be admitted to the hospitalist service, observation status, for congestive heart failure (CHF) and atrial fibrillation with rapid ventricular response, on telemetry. Will receive beta blockers, IV Lasix, obtain an echocardiogram. ALLERGIES: No known allergies. SOCIAL HISTORY: She is . She does not smoke cigarettes. She does not drink alcohol. She does not use recreational drugs. She has not been recently out of the [place]. PAST MEDICAL HISTORY: Atrial fibrillation. Her aircraft instrument tester is Dr. Roberson. Allergic rhinitis. Cervical spondylosis. Asthma. Irritable bowel syndrome. Gastroesophageal reflux disease (GERD). Osteoarthritis. Macular degeneration right eye. She had a history of a deep vein thrombosis (DVT) in the right leg in 1966. Brain hemorrhage, cerebellar cavernous angioma. PAST SURGICAL HISTORY: Colonoscopy in [address] Finnegan. Colonoscopy, endoscopy 01/[address] Gilmore. Repair right knee meniscus. Repair left knee meniscus. Hysterectomy. Laparoscopic (lap) abdominal surgery. Left cataract extraction April 2014. Teeth extraction April 2014. FAMILY HISTORY: Father is , had congestive heart failure (CHF), had a history of osteoarthritis. Mother , had a history of hypertension, history of osteoarthritis. HOME MEDICATIONS: - Tylenol Arthritis 1300 mg by mouth daily as needed for pain - Ventolin HFA two puffs every 4 hours as needed for shortness of breath or wheeze - amlodipine 2.5 mg by mouth daily - vitamin B12 500 mcg tablets; she takes 1000 mcg by mouth daily - Lasix 20 mg by mouth daily - calcium/D3/magnesium/zinc one tablet daily - Refresh eye drops one drop both eyes four times a day as needed for dry eyes - esomeprazole 40 mg by mouth daily - vitamin C two capsules by mouth daily - Xarelto 20 mg by mouth daily REVIEW OF SYSTEMS: No complaint of headache. No blurred or double vision. No fever, no chills, no tinnitus, no hoarseness, no difficulty swallowing. Lightheadedness with standing. No vertigo. Breasts: No masses. Cardiovascular: She has shortness of breath, lower extremity edema, complains of palpitations. Respiratory: No chronic cough. No sputum production. No hemoptysis. She has been orthopneic. No wheeze. Gastrointestinal (GI): No nausea, vomiting, or diarrhea. No hematochezia. No melena. No complaints of abdominal pain. Genitourinary (): No hematuria, dysuria, or frequency. Musculoskeletal: No joint redness or swelling. She has lower extremity edema. No joint edema. Endocrine: No history of polyuria, polydipsia, or polyphagia. Hematological: No history of anemia. Neurological: No history of seizures. History of brain hemorrhage. History of cerebellar cavernous angioma. No paresthesias, paralysis. No history of seizures. Psychological: No anxiety, depression, or suicidal ideation. PHYSICAL EXAMINATION: An 78-year-old cooperative female in no acute distress. Height 65 inches, weight 99.3 kilograms, body mass index (BMI) 36.4. Patient is alert and oriented times three. Pupils equal and reactive to light. Extraocular motions intact. Cornea and sclerae clear. Conjunctivae is normal. No facial asymmetry. Pharynx: Tongue and gums pink and moist. Tongue is midline. Neck is supple without lymphadenopathy. No thyromegaly. No goiter. Jugular venous pressure is at 2-4 at 45 degrees. Carotids 2+ without bruit. Chest has decreased breath sounds. No wheeze or retraction. Heart is irregular. Abdomen is benign. Bowel sounds are positive. Genital/Rectal: Not done. Extremities show 2+ bilateral lower extremity edema, right slightly more than left. Peripheral pulses equal and palpable bilaterally. Skin is warm and dry. IMPRESSION/PLAN: Patient will be admitted to the hospitalist service, observation status, acute congestive heart failure, atrial fibrillation with rapid ventricular response. Atrial fibrillation. Will continue Xarelto. Will add metoprolol 25 mg by mouth twice a day. EKG in the morning. telemetry monitor. Consult cardiology. Congestive heart failure. Continue IV Lasix; will do 40 mg IV twice a day. Order an echocardiogram, angiotensin-converting enzyme (ROSANNA) inhibitor. Per CTA, thyroid lesion. Will order thyroid ultrasound. DVT prophylaxis. Patient is on Xarelto. ADDENDUM: (dictated 03/27/2019) Upon further discussion with Donna, she states she has had a lesion in her thyroid. She said she did have an ultrasound 1 year ago, and she had a followup one approximately 2 weeks ago at [facility]. She states she was told by her primary care provider that there had been no change in the lesion. She has been asymptomatic. VISHAL
[2019-03-28] MEDS ORDERED: FUROSEMIDE 40 MG/4 ML VIAL (J1940) IV SCH (09:00)
[2019-03-28] MEDS ORDERED: METOPROLOL TART 25 MG TABLET PO SCH (09:00)
[2019-03-28] MEDS: POTASSIUM CHLORIDE 10 MEQ SR TABLET PO SCH (09:18)
[2019-03-28] MEDS: PANTOPRAZOLE 40MG TAB (PROTONIX) PO SCH (09:19)
[2019-03-28] MEDS: RIVAROXABAN 20 MG TAB (XARELTO) PO SCH (09:19)
[2019-03-28] MEDS: ENALAPRIL MALEATE 5 MG TAB PO SCH (11:18)
[2019-03-28 14:07] LABS: CK-MB VALUE MASS 1.3 NG/ML (<3.6); MB/CK RELATIVE INDEX 2.28 (< OR =4)
--- NOTE | 2019-03-28 15:26 | IPN ---
DATE: 03/28/2019 Donna is seen in progressive care unit (PCU). She was admitted with atrial fibrillation, had a near syncopal event. She was in atrial fibrillation with rapid ventricular response in the emergency room. Today, she feels well. She would like to get out of bed. No palpitations. Her heart rate has been around 80-100 on telemetry. PHYSICAL EXAM: 122/60, pulse of 100-110. GENERAL APPEARANCE: Alert, conversant, no distress. LUNGS: Clear. Her thyroid feels multinodular, no dominant masses. HEART: Regular rate and rhythm. ABDOMEN: Soft. Nontender. No peripheral edema. LABS: CBC, BMP unremarkable. TSH normal. IMPRESSION: 1. Atrial fibrillation, rapid ventricular response. Heart rate is still mildly elevated. I will increase the dose of metoprolol to 50 mg twice a day, and if her blood pressure tolerates it and her heart rate comes under better control, she could go home tomorrow. She is anticoagulated with Xarelto. 2. Question congestive heart failure. She seems compensated on exam, and I am stopping her intravenous (IV) furosemide. 3. Hypertensive heart disease. Blood pressure is adequate. Hopefully, it will hold on the higher dose of metoprolol. If stable, I will discharge her tomorrow.
[2019-03-28] MEDS: OCUVITE 1 TAB PO SCH (16:02)
[2019-03-28] MEDS: CYANOCOBALAMIN 500 MCG TAB PO SCH (16:02)
[2019-03-28 18:50] LABS: CALCIUM LEVEL 8.9 MG/DL (8.8-10.2); CREATININE FOR GFR 1.03 MG/DL (0.55-1.30); GLOMERULAR FILTRATION RATE 54.9 (>32); MAGNESIUM LEVEL 1.8 MG/DL (1.8-2.4); POTASSIUM SERUM 3.4 MEQ/L (3.5-5.1)
[2019-03-28] MEDS ORDERED: MAGNESIUM CHLORIDE 64 MG TABCR (SLO MAG) PO ONE (19:45)
[2019-03-28] MEDS: KCL 10MEQ/100ML SWI (KRUN) 10 MEQ in IV 1 EA IV SCH ×3 (20:12→22:56)
[2019-03-28] MEDS: METOPROLOL TART 50 MG TAB PO SCH (20:12)
[2019-03-28 22:22] LABS: CK-MB VALUE MASS 1.3 NG/ML (<3.6); MB/CK RELATIVE INDEX 2.5 (< OR =4)
[2019-03-29] VITALS: BP 146/79
[2019-03-29] MEDS: KCL 10MEQ/100ML SWI (KRUN) 10 MEQ in IV 1 EA IV SCH ×2
[2019-03-29 04:00] VITALS: BP 140/80
[2019-03-29 05:02] LABS: HEMATOCRIT 40.4 % (36.0-47.0); HEMOGLOBIN 13.2 g/dl (12.0-15.5); MEAN CORPUSCULAR HEMOGLOBIN 29.9 pg (27.0-33.0); MEAN CORPUSCULAR HGB CONC 32.7 g/dl (32.0-36.5); MEAN CORPUSCULAR VOLUME 91.4 fl (80.0-96.0); PLATELET COUNT, AUTOMATED 201 10^3/uL (150-450); RED BLOOD COUNT 4.42 10^6/uL (4.00-5.40); WHITE BLOOD COUNT 6.5 10^3/uL (4.0-10.0)
[2019-03-29 05:19] LABS: MAGNESIUM LEVEL 2.2 MG/DL (1.8-2.4)
[2019-03-29 07:44] VITALS: BP 128/63
[2019-03-29 07:57] LABS: BLOOD UREA NITROGEN 19 MG/DL (7-18); CARBON DIOXIDE LEVEL 26 MEQ/L (21-32); CHLORIDE LEVEL 111 MEQ/L (98-107); CREATININE FOR GFR 0.75 MG/DL (0.55-1.30); GLOMERULAR FILTRATION RATE > 60.0 (>32); GLUCOSE, FASTING 96 MG/DL (70-100); POTASSIUM SERUM 4.2 MEQ/L (3.5-5.1); SODIUM LEVEL 143 MEQ/L (136-145)
[2019-03-29] MEDS: PANTOPRAZOLE 40MG TAB (PROTONIX) PO SCH (08:56)
[2019-03-29] MEDS: RIVAROXABAN 20 MG TAB (XARELTO) PO SCH (08:56)
[2019-03-29 08:57] VITALS: BP 128/63
[2019-03-29] MEDS: POTASSIUM CHLORIDE 10 MEQ SR TABLET PO SCH (08:57)
[2019-03-29] MEDS: CYANOCOBALAMIN 500 MCG TAB PO SCH (08:57)
[2019-03-29] MEDS: METOPROLOL TART 50 MG TAB PO SCH (08:57)
[2019-03-29] MEDS: ENALAPRIL MALEATE 5 MG TAB PO SCH (08:57)
[2019-03-29] MEDS: OCUVITE 1 TAB PO SCH (08:58)
[2019-03-29] MEDS ORDERED: FUROSEMIDE 20 MG TAB PO SCH (09:00)
[2019-03-29] MEDS ORDERED: KLOR10TA76 PO (11:14)
[2019-03-29] MEDS ORDERED: LOPR1TAB6 PO (11:14)
[2019-03-29] MEDS ORDERED: ENAL5TAB PO (11:14)
--- NOTE | 2019-03-29 12:49 | ECHO ---
DATE OF SERVICE: 03/28/2019 AGE: 78. REFERRING PROVIDER: Brenda Pagan PATIENT LOCATION: Room 3214. REASON FOR THE STUDY: Heart failure, atrial fibrillation/flutter, edema. 2D MEASUREMENTS: IVS: 1.3 cm LV: 4.7 cm LVPW: 1.2 cm LA: 3.6 cm Aorta: 3.6 cm IVC: 2.0 cm DOPPLER MEASUREMENTS: Peak velocity across the aortic valve: 1.3 m/s Peak velocity across the LVOT: 0.88 m/s Peak gradient across the aortic valve: 7 mmHg Mitral E: 0.78 Maximum tricuspid valve velocity: 2.1 m/s 2D COMMENTS: 1. Normal left ventricular size, wall thickness, and normal global left ventricular systolic function. Estimated left ventricular systolic ejection fraction is 60% to 65%. 2. Subjectively, the left atrium appeared to be mildly enlarged. Normal right atrium and right ventricle. 3. The atrial septum appeared to be normal without evidence of defect or shunt. 4. Normal aortic root. 5. Trace pericardial effusion noted, no evidence of cardiac tamponade. 6. Mildly calcified aortic valve with normal leaflet excursion. Minimally calcified mitral annulus with normal anterior mitral valve leaflet motion. Normal tricuspid valve and pulmonic valve. The proximal pulmonary artery branches were not well visualized. 7. The inferior vena cava was mildly enlarged, central venous pressure might be elevated. DOPPLER: It detects mild aortic regurgitation, mild tricuspid regurgitation. The calculated pulmonary artery systolic pressure was normal, less than 30 mmHg. Assessment of the left ventricular diastolic function was limited in view of the underlying atrial flutter. IMPRESSION: 1. Normal global left ventricular systolic function with mild concentric left ventricular hypertrophy. Assessment of the left ventricular diastolic function was limited. 2. Aortic valve sclerosis with mild aortic regurgitation and trivial aortic stenosis. 3. Isolated mitral annulus calcification. No evidence of mitral regurgitation in this transthoracic echocardiogram. No mitral stenosis. 4. Mild tricuspid radiation with a normal calculated pulmonary artery systolic pressure. 5. Trace pericardial effusion noted, no evidence of cardiac tamponade. MTDD
--- NOTE | 2019-03-29 17:12 | ECGEPIP ---
[facility] Test Date: 2019-03-28 Pat Name: BERNY LISA Department: Room: [place] [address] Gender: Female [employer] Fitter: PATTIE : 1940 Requested By: Brenda Edward [facility] Order Number: [id number] Reading MD: Joseph Friend Measurements Intervals [place] Rate: 90 P: AL: 0 QRS: 34 QRSD: 98 T: 34 QT: 355 QTc: 435 Interpretive Statements ATRIAL FIBRILLATION NONSPECIFIC T-WAVE ABNORMALITY ABNORMAL RHYTHM ECG COMPARED TO THE LAST 2 TRACINGS, NO SIGNIFICANT CHANGES Electronically Signed on 03-29-2019 17:12:02 EDT by Joseph Friend
--- NOTE | 2019-03-29 20:19 | DSES ---
DATE OF ADMISSION: 03/27/2019 DATE OF DISCHARGE: 03/29/2019 PRINCIPAL DIAGNOSIS: Atrial fibrillation with rapid ventricular response. SECONDARY DIAGNOSES: 1. Hypertensive heart disease. 2. Multinodular goiter unchanged in recent ultrasound. 3. Cervical spondylosis. 4. History of previous intracerebral hemorrhage from cerebellar cavernous angioma. 5. Remote history of deep venous thrombosis (DVT) right leg. HISTORY: Donna Nayak was admitted with atrial fibrillation with rapid ventricular response. Details in history of present illness from admission. HOSPITAL COURSE: Patient admitted to monitored bed. Increased the dose of her metoprolol. Both her blood pressure and heart rate came under good control. She remained asymptomatic and at discharge she says she is "bored" and wants to go home. She is not having any chest pain, shortness of breath, dyspnea on exertion, or palpitations. PHYSICAL EXAMINATION: Vital signs are stable, heart rate 70s, blood pressure is 120/63. Lungs clear. Heart regular rate and rhythm. Abdomen soft, nontender. No peripheral edema. LABORATORY DATA: Today: White count 6.5, hemoglobin 13, platelets 201, sodium 143, potassium 4.2, BUN 19, creatinine 0.7, glucose 96. She had an angiographic CT of the chest on admission for unknown reasons. Showed no pulmonary embolism. Patchy ground glass opacities both lungs. Indeterminate thyroid nodules (recent thyroid ultrasound showed no change from previous). DISPOSITION: She is discharged home improved in stable condition. Followup with primary care provider, Dr. Cox, in a week. Her activity is as tolerated. Continue no added salt diet. MEDICATIONS ON DISCHARGE: Will continue to be: - Tylenol as needed - albuterol inhaler as needed - calcium supplement as needed - B12 1000 mcg by mouth daily - esomeprazole 40 mg daily - furosemide 20 mg daily - Xarelto 20 mg daily New medications are: - Vasotec 5 mg daily - metoprolol 50 mg twice a day - potassium chloride 10 mEq daily She will need a followup potassium level at her appointment with Dr. Cox in a week.
--- NOTE | 2019-03-29 20:53 | IPN ---
DATE: 03/29/2019 Mrs. Donna Nayak was seen earlier today, she was sitting in the chair in no acute distress at rest. She stated she is doing fine and ready to go home. She has been ambulating. Her heart rate remained regular. She was initially admitted on 03/27/2019 with atrial fibrillation and manifestation of congestive heart failure secondary to left ventricular diastolic dysfunction. Echocardiogram revealed a normal LVEF, done on 03/28/2019. PHYSICAL EXAMINATION: The patient is alert and oriented, in no acute distress at rest and her most recent vital signs this morning reveal a blood pressure of 128/63 with a pulse of 78, respiration 18 and a maximum temperature is 98 degrees Fahrenheit with an oxygen saturation of 98% on room air. Physical examination revealed trace pedal edema, more on the right lower extremity than the left, otherwise unremarkable. LABORATORY DATA: CBC revealed a WBC of 6.5, hemoglobin 13.2, hematocrit 40.4 and platelet 201,000. BMP revealed a sodium of 143, potassium 4.2, chloride 111, CO2 26, BUN 19, creatinine 0.75, GFR more than 60, fasting glucose 96, calcium 9.0. Serum magnesium is 2.0. Mrs. Donna Nayak is stable from a cardiac point of view, status post hospitalization for decompensated congestive heart failure, acute secondary to left ventricular diastolic dysfunction most likely related to uncontrolled paroxysmal atrial fibrillation. Her hypokalemia is now corrected. She can be discharged home on current medications and I recommend to have a BMP done in about a week to check her BUN, creatinine and serum potassium. This was discussed with her and she will have it done in [place]. She has an appointment followup already scheduled with Dr. Roberson. She will call the office for any questions or issues. She will continue to follow with her primary in [place], [place]. As medications, she will be on: - furosemide 20 mg by mouth daily - metoprolol tartrate 50 mg by mouth twice a day - pantoprazole 40 mg by mouth daily - KCl / Micro-K 10 mg by mouth daily - enalapril 5 mg by mouth daily - multivitamin / Ocuvite two tablets daily - vitamin B12 1000 mcg by mouth daily - rivaroxaban 20 mg by mouth daily with meals - Tylenol as needed for pain MTDD
--- NOTE | 2019-03-30 11:07 | CR ---
DATE OF CONSULTATION: 03/28/2019 REFERRING PROVIDER: Dr. Silverio Valero. PRIMARY CARE PROVIDER: Dr. Souleymane Cox. CASCADE OPERATOR: Dr. Laila Roberson. REASON FOR CONSULTATION: Atrial fibrillation, heart failure. HISTORY OF PRESENT ILLNESS: An 78-year-old woman came to the office yesterday in the evening with shortness of breath and rapid heart rate due to her atrial fibrillation. She was stabilized and was planning to go home when suddenly she developed again atrial fibrillation with a controlled ventricular rate. She was admitted to progressive care unit (PCU) for further management and monitoring. Cardiology consult was called. She also was found to have elevated serum for BNP, but negative serum troponin. When I saw Mrs. Donna Nayak on the floor, she was sitting in a chair in no acute distress at rest and her was at bedside. She stated she is feeling better. Her pedal edema, as well as shortness of breath, has improved. She denies any palpitations. She has no focal manifestation. She has no nausea, vomiting, diarrhea, melena or hematemesis. She has no dysuria, polyuria or hematuria. PAST MEDICAL HISTORY: Positive for: 1. Atrial fibrillation. 2. Hypertension. 3. Arthritis. 4. Gastroesophageal reflux disease (GERD). 5. Macular degeneration. 6. Irritable bowel syndrome (IBS). 7. Asthma. 8. History of deep venous thrombosis (DVT). MEDICATIONS AT HOME: - Tylenol arthritis as needed - Ventolin HFA two puffs every 4 hours as needed for shortness of breath and wheezing - amlodipine 2.5 mg by mouth daily - vitamin B12 mcg 1000 mg by mouth daily, - Lasix 20 mg by mouth daily - calcium and D one daily - Refresh eye drops four times a day for eye dryness - esomeprazole 40 mg by mouth daily - vitamin C two capsules by mouth daily - Xarelto 20 mg by mouth daily CURRENT MEDICATIONS: - Lasix 20 mg by mouth daily - metoprolol tartrate 50 grams by mouth twice a day - potassium chloride (KCl) - pantoprazole 40 mg by mouth daily - enalapril 5 mg by mouth daily - multivitamin two tablets by mouth daily - vitamin B12 1000 mcg by mouth daily - Xarelto 20 mg by mouth daily - Tylenol 650 mg every 4 hours as needed for mild pain or fever PAST SURGICAL HISTORY: Positive for: 1. Hysterectomy. 2. Laparoscopic abdominal surgery. 3. Left cataract extraction. 4. Tooth extraction. 5. Left and right knee meniscus surgery. 6. Colonoscopy by Dr. Serrano and Dr. Gilmore. The last one was on 01/31/[address] Gilmore. SOCIAL HISTORY: The patient lives with her and she denies any smoking or EtOH abuse. She has no known drug allergies. The patient is a FULL CODE. PHYSICAL EXAMINATION: The patient is alert and oriented, in no acute distress at rest. VITAL SIGNS: When I saw her revealed a blood pressure of 106/60, with a pulse of 83, respirations 18, and a maximum temperature of 98.4 degrees Fahrenheit with an oxygen saturation of 96% on room air. EXAMINATION OF THE HEAD: Atraumatic. NECK: Supple and no jugular venous distention (JVD) appreciated. LUNGS: Did not reveal any wheezing or crackles. HEART EXAMINATION: Revealed regular sounds without gallops. Point of maximum impulse (PMI) is nondisplaced. There is no rub. ABDOMEN: Soft and nontender, bowel sounds active. EXAMINATION OF THE EXTREMITIES: Ankle edema, mainly noted on the right lower extremity were varicose veins were noted. NEUROLOGIC EXAMINATION: Negative for focal deficit. LABORATORY DATA: Basic metabolic panel (BMP) done on 03/28/2019 revealed a sodium of 139, potassium 3.4, chloride 106, CO2 26, BUN 25, creatinine 1.03, GFR 54.6, fasting glucose 136, calcium 8.9. Magnesium is 1.8. Pro-BNP on admission was 2483 and 24 hours later it was 634. Liver function tests on admission reveal a total bilirubin of less than 0.1 AST 90, ALT 79, alkaline phosphatase 80, total protein 6.6, albumin 3.5. Serum TSH 0.38. Serum lipase is 138. Complete blood count (CBC) done on 03/28/2019 revealed a WBC of 6.9, hemoglobin 13.4, hematocrit 41.0 and platelet 192,000. PT was 18.3, with an INR of 1.55 and a PTT of 34.3. Electrocardiogram on admission revealed atrial flutter at 79 beats per minute and nonspecific ST-T abnormalities. Doppler of the legs done on 03/27/2019 revealed no evidence of DVT bilaterally. Chest x-ray on admission 03/27/2019 revealed chronic changes, otherwise no acute disease process. CT of the lungs on admission revealed no pulmonary embolism. There was fusiform ectasia on the ascending thoracic aorta, a patchy ground glass appearance in both lungs and thyroid nodules. Moderate coronary artery calcifications noted. IMPRESSION: 1. Atrial fibrillation/flutter. Under control with current medications and patient will continue the same. Her beta-mitch was increased earlier today by hospitalist covering. She is Xarelto for prevention of thromboembolic events and she will continue same. 2. Congestive heart failure, probably diastolic in nature. Expecting her symptoms to improve, as her atrial fibrillation is under control. She will continue current management, also on small dose of furosemide. She has some mild intellect abnormalities and this is being addressed. 3. Hypertension. Under control. 4. History of remote DVT in the right lower extremity, 1966. 5. History of arthritis with degenerative joint disease and positive arthritis. 6. Gastroesophageal reflux disease (GERD), being addressed. It was a pleasure to participate in the care of Mrs. Donna Nayak for her underlying cardiac condition. She appears to be stable from a cardiac point of view and she is feeling better. She stated she might be a going home tomorrow 03/29/2019, or 03/30/2019. She will continue to follow with her primary and will also make an appointment with Dr. Roberson. VISHAL
== END 2019-03-29 12:33 | disposition home or self-care (01) ==
LOC: M ED 15:29 → M ED INP 15:30 → M PCU 03-28 00:29
PROVIDERS: ADMIT Internal Medicine; ATTEND Family Medicine
DX: I48.0 Paroxysmal atrial fibrillation (principal); I11.9 Hypertensive heart disease without heart failure; E04.2 Nontoxic multinodular goiter; M47.812 Spondylosis without myelopathy or radiculopathy, cervical region; D18.02 Hemangioma of intracranial structures; Z86.79 Personal history of other diseases of the circulatory system; Z86.718 Personal history of other venous thrombosis and embolism; Z79.01 Long term (current) use of anticoagulants; Z79.899 Other long term (current) drug therapy; J45.909 Unspecified asthma, uncomplicated; K58.8 Other irritable bowel syndrome; K21.9 Gastro-esophageal reflux disease without esophagitis; H35.30 Unspecified macular degeneration
CPT/HCPCS: 36415; 71045; 71275; 80047; 80048; 80076; 82550; 82553; 83690; 83735; 83880; 84443; 84484; 85025; 85027; 85610; 85730; 93005; 93041; 93306; 93970; 94760; 96361; 96374; 96376; 99285; G0378; J1940; Q9967

== ENCOUNTER → 2019-04-06 | Outpatient (REF) | payer MEDICARE ==
[~2019-04-06] MED LIST changes: +ENAL5TAB PO; +ESOM40CA35 PO; +KLOR10TA76 PO; +LOPR1TAB6 PO
[2019-04-06 16:44] LABS: BLOOD UREA NITROGEN 16 MG/DL (7-18); CARBON DIOXIDE LEVEL 27 MEQ/L (21-32); CHLORIDE LEVEL 107 MEQ/L (98-107); CREATININE FOR GFR 0.91 MG/DL (0.55-1.30); GLOMERULAR FILTRATION RATE > 60.0 (>32); GLUCOSE, FASTING 106 MG/DL (70-100); POTASSIUM SERUM 4.2 MEQ/L (3.5-5.1); SODIUM LEVEL 142 MEQ/L (136-145)
== END ==
LOC: M SFHCCLAY 11:22
PROVIDERS: ATTEND Family Medicine
DX: I11.0 Hypertensive heart disease with heart failure (principal)

== ENCOUNTER → 2019-08-26 | Outpatient (REF) | payer MEDICARE ==
[2019-08-26 17:00] LABS: HEMATOCRIT 40.9 % (36.0-47.0); HEMOGLOBIN 12.8 g/dl (12.0-15.5); MEAN CORPUSCULAR HGB CONC 31.3 g/dl (32.0-36.5); MEAN CORPUSCULAR VOLUME 95.8 fl (80.0-96.0); PLATELET COUNT, AUTOMATED 197 10^3/uL (150-450); RED BLOOD COUNT 4.27 10^6/uL (4.00-5.40); WHITE BLOOD COUNT 6.5 10^3/uL (4.0-10.0)
[2019-08-26 17:21] LABS: ALBUMIN 3.5 GM/DL (3.2-5.2); ALT/SGPT 20 U/L (12-78); BILIRUBIN,TOTAL 0.3 MG/DL (0.2-1.0); BLOOD UREA NITROGEN 17 MG/DL (7-18); CALCIUM LEVEL 8.9 MG/DL (8.8-10.2); CARBON DIOXIDE LEVEL 28 MEQ/L (21-32); CHLORIDE LEVEL 108 MEQ/L (98-107); CREATININE FOR GFR 0.76 MG/DL (0.55-1.30); GLOMERULAR FILTRATION RATE > 60.0 (>32); GLUCOSE, FASTING 122 MG/DL (70-100); POTASSIUM SERUM 4.3 MEQ/L (3.5-5.1); SODIUM LEVEL 143 MEQ/L (136-145); TOTAL PROTEIN 6.8 GM/DL (6.4-8.2)
== END ==
LOC: M SFHCCLAY 13:51
PROVIDERS: ATTEND Family Medicine
DX: I48.0 Paroxysmal atrial fibrillation (principal); D18.01 Hemangioma of skin and subcutaneous tissue
CPT/HCPCS: 80053; 85027; G0463

== ENCOUNTER → 2019-09-04 | Outpatient (CLI) | payer MEDICARE ==
--- NOTE | 2019-09-04 13:21 | REPVR ---
PROCEDURE INFORMATION: Exam: MR Head Without and With Contrast Exam date and time: 09/04/2019 12:26 PM Age: 79 years old Clinical indication: Pain and condition or disease; Headache; Cluster; Patient HX: PT states current h/a and HX of cavernoma, priors on pacs TECHNIQUE: Imaging protocol: MR of the head without and with intravenous contrast. Contrast material: PORHANCE; Contrast volume: 20 ml; Contrast route: 22G; COMPARISON: MRI-Brain without Contrast 06/27/2017 2:09 PM FINDINGS: Brain: Stable 8 mm cavernous angioma with blooming hemosiderin artifact in the superior cerebellar vermis, unchanged since the previous study. No acute hemorrhage, mass effect or enhancement is seen. There is mild patchy increased T2 signal intensity within the bilateral cerebral periventricular white matter, consistent with chronic microvascular ischemic changes. There are few small focal areas of chronic ischemia in bilateral frontal, parietal and periatrial white matter. There is no abnormal diffusion weighted signal intensity to suggest an acute ischemic event. No abnormal contrast enhancement is seen. Ventricles: The ventricular system is not dilated and is appropriate for the patient's age. Bones/joints: Benign hyperostosis frontalis is present.Diffuse calvarial thickening is again noted. Soft tissues: Unremarkable. Sinuses: Normal as visualized. No acute sinusitis. Mastoid air cells: Normal as visualized. No mastoid effusion. Orbits: Unremarkable. IMPRESSION: 1. No acute infarction, masses or acute hemorrhage is seen. No acute intracranial abnormality is identified. 2. Diffuse age-related cerebral atrophy and mild chronic microvascular white matter ischemic changes, without evidence of an acute intracranial abnormality. 3. Stable 8 mm cavernous angioma with blooming hemosiderin artifact in the superior cerebellar vermis, unchanged since the previous study. No acute hemorrhage, mass effect or enhancement is seen. 4. Benign hyperostosis frontalis is present.Diffuse calvarial thickening is again noted. 5. No abnormal contrast enhancement is seen. Electronically signed by: Jamari Garcia On 09/04/2019 13:20:40 PM
== END ==
LOC: M PLARAD 10:02
PROVIDERS: ATTEND Family Medicine
DX: D18.01 Hemangioma of skin and subcutaneous tissue (principal); M85.2 Hyperostosis of skull; G31.9 Degenerative disease of nervous system, unspecified

== ENCOUNTER → 2019-12-04 | Outpatient (REF) | payer MEDICARE ==
[2019-12-08 12:41] LABS: FREE T3 2.8 PG/ML (2.2-4.0); FREE T4 1.08 NG/DL (0.76-1.46); THYROID STIMULATING HORMONE 0.165 uIU/ML (0.358-3.740)
== END ==
LOC: M SFHCCLAY 14:15
PROVIDERS: ATTEND Family Medicine
DX: E04.2 Nontoxic multinodular goiter (principal)
CPT/HCPCS: 84439; 84443; 84481; G0463

== ENCOUNTER → 2019-12-18 | Outpatient (CLI) | payer MEDICARE ==
--- NOTE | 2019-12-18 15:57 | REP ---
MRI RIGHT SHOULDER: TECHNIQUE: Axial T2 fat sat, gradient echo, sagittal oblique T2 fat sat, coronal oblique T1, T2 fat sat. There is abnormal signal in the supraspinatus tendon, compatible with a mild to moderate degree of tendinopathy. There is a full thickness tear of the distal tendon. There is abnormal signal in the subscapularis tendon with thickening compatible with tendinopathy. There is a partial full thickness tear of the subscapularis tendon distally. There are moderate hypertrophic degenerative changes of the acromioclavicular joint with mild subchondral marrow edema and mild fluid in the joint. Acromion is type 2. Biceps tendon is diffusely thickened with increased signal and mild surrounding fluid having the appearance of severe tendonitis. There appears to be a partial tear of the biceps anchor at the superior labrum. There is an associated SLAP tear. Other portions of the labrum appear intact. There is no abnormal signal in the deltoid muscle. There are subcortical cystic changes and mild marrow edema in the humeral head. There is a small joint effusion as well as a mild amount of fluid in the subacromial-subdeltoid bursae. Low signal bone lesion on both T1 and T2-weighted images in the medial humeral neck is compatible with a benign bone island 1.3 cm in diameter. There is mild to moderate chondromalacia at the glenohumeral joint. IMPRESSION: Tendinopathy of the supraspinatus and subscapularis tendons with a partial full thickness tear of the distal supraspinatus tendon. There is a partial full thickness tear of the subscapularis tendon distally. There are moderate hypertrophic degenerative changes of the acromioclavicular joint with mild subchondral marrow edema. Biceps tendon demonstrates diffuse thickening and increased signal compatible with diffuse tendinopathy and tendonitis. There appears to be a partial tear proximally at the insertion onto the labrum. There is an adjacent SLAP tear noted. Mild subcortical cystic changes and marrow edema in the humeral head. Small joint effusion. Mild fluid in the subacromial/subdeltoid bursae. Electronically Signed by Sanjay Corea MD 12/21/2019 10:02 P
== END ==
LOC: M RAD 09:44
PROVIDERS: ATTEND Family Medicine
DX: S46.911A Strain of unspecified muscle, fascia and tendon at shoulder and upper arm level, right arm, initial encounter (principal); W19.XXXA Unspecified fall, initial encounter; Y92.9 Unspecified place or not applicable; R93.6 Abnormal findings on diagnostic imaging of limbs

== ENCOUNTER → 2019-12-18 | Outpatient (CLI) | payer MEDICARE ==
--- NOTE | 2019-12-18 16:34 | REP ---
MRI RIGHT KNEE: TECHNIQUE: Axial proton density fat saturation, sagittal proton density T2 STIR, water excitation, coronal proton density, proton density fat saturation. There is an extensive complex tear of the posterior horn of the medial meniscus. The lateral meniscus appears intact. Mild increased signal on T2-weighted images seen involving the anterior and posterior cruciate ligaments diffusely suggesting chronic strain/degenerative signal. Collateral ligaments are intact. Extensor mechanism is intact. Medial and lateral patellar retinacula are intact. There is moderate diffuse chondromalacia of the medial femoral condyle and tibial plateau. Otherwise, there is mild global chondromalacia elsewhere. There is mild diffuse spurring. There is mild subchondral cystic change in the tibial plateau. There is mild subchondral marrow edema in the lateral femoral condyle. There is a moderate joint effusion. There is synovial thickening. There is a complex Callejas cyst, which has a lobulated shape. It extends for a craniocaudal length of about 8 cm. Maximum thickness is about 1.4 cm. There are multiple internal septations. There is diffuse soft tissue edema. IMPRESSION: Complex tear posterior horn medial meniscus. Diffuse mild increased signal involving the anterior and posterior cruciate ligaments is compatible with chronic degenerative signal/strain. Diffuse chondromalacia is most significant in the medial joint compartment. There is mild subchondral marrow edema in the lateral femoral condyle and mild subchondral cystic change in the tibial plateau. There is a moderate joint effusion with diffuse synovial thickening. There is a complex Callejas cyst. Electronically Signed by Sanjay Corea MD 12/21/2019 10:05 P
== END ==
LOC: M RAD 09:53
PROVIDERS: ATTEND Orthopaedic Surgery
DX: S83.231A Complex tear of medial meniscus, current injury, right knee, initial encounter (principal); M71.21 Synovial cyst of popliteal space [Baker], right knee; S80.01XA Contusion of right knee, initial encounter; S46.911A Strain of unspecified muscle, fascia and tendon at shoulder and upper arm level, right arm, initial encounter; W19.XXXA Unspecified fall, initial encounter; Y92.9 Unspecified place or not applicable; R93.6 Abnormal findings on diagnostic imaging of limbs

== ENCOUNTER 2020-03-30 10:08 | Inpatient (IN) | payer MEDICARE ==
[~2020-03-30] VITALS: Ht 165.1 cm; Wt 97.0 kg
[~2020-03-30 10:08] MED LIST changes: +ACET650T61 PO; +ENAL5TA PO; -ENAL5TAB PO; -TYLE650T35 PO
--- NOTE | 2020-03-30 11:00 | REPVR ---
PROCEDURE INFORMATION: Exam: XR Chest, 1 View Exam date and time: 03/30/2020 10:40 AM Age: 79 years old Clinical indication: Cough and dyspnea; Additional info: Dyspnea/cough TECHNIQUE: Imaging protocol: XR of the chest Views: 1 view. COMPARISON: CR PORTABLE CHEST X-RAY 03/27/2019 4:55 PM FINDINGS: Lungs: Stable lung aeration with chronic interstitial changes, most pronounced at the lung bases. No evidence of airspace consolidation. Pleural space: No significant pleural effusions. No pneumothorax. Heart/Mediastinum: Stable cardiomegaly as well as stable atherosclerosis and ectasia of the thoracic aorta. Widening of the superior mediastinum with leftward tracheal deviation and mild narrowing appears unchanged and consistent with thyroid goiter. Bones/joints: Bones are stable. Osteopenia. Degenerative changes. IMPRESSION: Stable chronic changes when compared to the prior examination of 03/27/2019. No acute abnormalities are identified. Electronically signed by: Jean Navarro On 03/30/2020 10:59:46 AM
[2020-03-30 11:18] LABS: VENOUS BASE EXCESS 0.1 (-2.0-2.0); VENOUS HCO3 25.6 MEQ/L (23.0-27.0); VENOUS O2 SATURATION 81.6 % (60.0-80.0); VENOUS PARTIAL PRESSURE CO2 44.3 mmHg (38.0-50.0); VENOUS PARTIAL PRESSURE O2 46.4 mmHg (30.0-50.0); VENOUS PH 7.379 UNITS (7.330-7.430); VENOUS STANDARD HCO3 24.2 MEQ/L; VENOUS TOTAL CO2 26.9 MEQ/L (24.0-28.0)
[2020-03-30 11:24] LABS: BASO # 0.1 10^3/uL (0.0-0.2); BASO % 1.6 % (0.0-1.0); EOS # 0.1 10^3/uL (0.0-0.5); EOS % 1.9 % (0.0-3.0); HEMOGLOBIN 12.1 g/dl (12.0-15.5); LYMPH # 1.8 10^3/uL (1.5-5.0); LYMPH % 31.4 % (24.0-44.0); MEAN CORPUSCULAR HEMOGLOBIN 31.1 pg (27.0-33.0); MEAN CORPUSCULAR HGB CONC 32.7 g/dl (32.0-36.5); MEAN CORPUSCULAR VOLUME 95.1 fl (80.0-96.0); MONO # 0.5 10^3/uL (0.0-0.8); MONO % 8.4 % (0.0-5.0); NEUTROPHILS # 3.3 10^3/uL (1.5-8.5); NEUTROPHILS % 56.4 % (36.0-66.0); PLATELET COUNT, AUTOMATED 175 10^3/uL (150-450); RED BLOOD COUNT 3.89 10^6/uL (4.00-5.40); WHITE BLOOD COUNT 5.8 10^3/uL (4.0-10.0)
[2020-03-30 11:49] LABS: INR 1.09; PROTHROMBIN TIME 14.4 SECONDS (11.8-14.0)
[2020-03-30 12:07] LABS: ALBUMIN 3.3 GM/DL (3.2-5.2); BILIRUBIN,DIRECT 0.1 MG/DL (0.0-0.2); BILIRUBIN,TOTAL 0.5 MG/DL (0.2-1.0); THYROID STIMULATING HORMONE 0.247 uIU/ML (0.358-3.740); TOTAL PROTEIN 6.7 GM/DL (6.4-8.2)
--- NOTE | 2020-03-30 12:11 | REPVR ---
PROCEDURE INFORMATION: Exam: US Duplex Lower Extremity Veins, Bilateral Exam date and time: 03/30/2020 12:05 PM Age: 79 years old Clinical indication: Pain; Leg, lower; Bilateral; Additional info: Swelling TECHNIQUE: Imaging protocol: Real-time duplex ultrasound of the extremities with 2-D herzog scale, color Doppler flow and spectral waveform analysis with image documentation. Complete exam focused on the bilateral lower extremity veins. COMPARISON: US Duplex, Ext LOWER veins, bilat 03/27/2019 4:38 PM FINDINGS: Right deep veins: The right common femoral, femoral, proximal profunda femoral and popliteal veins are patent without thrombus. Normal Doppler waveforms. Normal compressibility and/or augmentation response. Right superficial veins: Saphenofemoral junction is patent without thrombus. Left deep veins: The left common femoral, femoral, proximal profunda femoral and popliteal veins are patent without thrombus. Normal Doppler waveforms. Normal compressibility and/or augmentation response. Left superficial veins: Saphenofemoral junction is patent without thrombus. Soft tissues: 2.4 x 1.1 x 2.9 cm maxwell cyst is seen in the right popliteal fossa.. IMPRESSION: No evidence of deep vein thrombosis. Electronically signed by: Jamari Garcia On 03/30/2020 12:11:23 PM
[2020-03-30] MEDS ORDERED: OMEP-221 PO (12:20)
[2020-03-30] MEDS ORDERED: K-TA10TA2 PO (12:20)
[2020-03-30] MEDS ORDERED: METO50TA7 PO (12:20)
[2020-03-30] MEDS ORDERED: ISOVUE-370 76% 100ML VIAL As Ordered ONE (12:42)
[2020-03-30] MEDS ORDERED: FUROSEMIDE 40MG/4ML VIAL (J1940) IV ONE (13:00)
--- NOTE | 2020-03-30 13:27 | REPVR ---
PROCEDURE INFORMATION: Exam: CT Angiography Chest With Contrast Exam date and time: 03/30/2020 12:54 PM Age: 79 years old Clinical indication: Shortness of breath; Additional info: SOB TECHNIQUE: Imaging protocol: Computed tomographic angiography of the chest with intravenous contrast. 3D rendering (Not supervised by radiologist): MIP and/or 3D reconstructed images were created by the technologist. Radiation optimization: All CT scans at this facility use at least one of these dose optimization techniques: automated exposure control; mA and/or kV adjustment per patient size (includes targeted exams where dose is matched to clinical indication); or iterative reconstruction. Contrast material: ISOVUE 370; Contrast volume: 75 ml; Contrast route: INTRAVENOUS (IV); COMPARISON: CT ANGIO CHEST 03/27/2019 4:48 PM FINDINGS: Pulmonary arteries: Stable mild prominence of the main pulmonary arterial trunk suggestive of pulmonary hypertension.The pulmonary arteries are adequately opacified. No evidence of pulmonary embolism in the main, central, lobar or segmental pulmonary arteries. Aorta: Unremarkable. No aortic aneurysm. No aortic dissection. Thyroid: Examination again demonstrates enlarged thyroid gland with large hypodense nodules measuring to 5.5 cm in diameter in the right lobe causing compression and displacement of the trachea towards the left. Thyroid ultrasound may be considered for further evaluation. Lungs: Stable mild patchy ground-glass opacity in the lungs bilaterally.There is mosaic pattern within the visualised lung parenchyma appreciated. Mosaic attenuation is a patchwork of regions of differing attenuation is nonspecific finding which can be seen in a obstructive small airways disease, occlusive vascular disease, or parenchymal disease. No acute infiltrate or consolidation is seen. Pleural space: No pneumothorax. No pleural effusion. Heart: The heart demonstrates mild diffuse enlargement. Lymph nodes: No enlarged lymph nodes. Bones/joints: There is moderate diffuse osteopenia. The thoracic spine demonstrates moderate degenerative changes at multiple levels. Soft tissues: Unremarkable. IMPRESSION: 1. Stable mild prominence of the main pulmonary arterial trunk suggestive of pulmonary hypertension.The pulmonary arteries are adequately opacified. No evidence of pulmonary embolism in the main, central, lobar or segmental pulmonary arteries. 2. Examination again demonstrates enlarged thyroid gland with large hypodense nodules measuring to 5.5 cm in diameter in the right lobe causing compression and displacement of the trachea towards the left. Thyroid ultrasound may be considered for further evaluation. 3. Stable mild patchy ground-glass opacity in the lungs bilaterally.There is mosaic pattern within the visualised lung parenchyma appreciated. Mosaic attenuation is a patchwork of regions of differing attenuation is nonspecific finding which can be seen in a obstructive small airways disease, occlusive vascular disease, or parenchymal disease. No acute infiltrate or consolidation is seen. COMMENTS: Consistent with the [employer]'s Incidental Findings Committee white paper (J Am Raymond Radiol 2015): In patients aged 35 years and older with an incidental thyroid nodule equal to or greater than 1.[address], MRI or extrathyroidal US, further evaluation with dedicated thyroid US is recommended for patients with normal life expectancy and without comorbidities. For smaller nodules without suspicious features, no further evaluation or follow up is recommended. Electronically signed by: Jamari Garcia On 03/30/2020 13:27:05 PM
[2020-03-30] MEDS ORDERED: METOPROLOL TART 25 MG TABLET PO ONE (15:45)
[2020-03-30] MEDS: FUROSEMIDE 40MG/4ML VIAL (J1940) IV SCH (18:00)
[2020-03-30] MEDS ORDERED: ALBUTEROL 90 MCG/ACT 8GM HFA INHALER INH PRN (18:15)
[2020-03-30] MEDS ORDERED: ACETAMINOPHEN 650MG ER TAB (TYLENOL ARTHRITIS) PO PRN (18:15)
--- NOTE | 2020-03-30 18:56 | REPVR ---
PROCEDURE INFORMATION: Exam: US Soft Tissue Head and Neck, Thyroid Exam date and time: 03/30/2020 6:34 PM Age: 79 years old Clinical indication: Neck pain; Additional info: Goiter TECHNIQUE: Imaging protocol: Real-time ultrasound scan of the neck with image documentation. Exam focused on the thyroid. COMPARISON: MRI-Brain W/O FOLL BY WITH 09/04/2019 11:40 AM FINDINGS: Right thyroid lobe: Right lobe of the thyroid gland measures 7.3 x 5.8 x 4.4 cm. Two thyroid nodules demonstrated measuring 5.4 x 4 x 4.9 cm in the in the mid to lower pole, predominantly solid with small cystic foci and a predominantly solid centrally spongiform nodule in the upper pole measuring 4.8 x 2.2 x 3.8 cm. Left thyroid lobe: Left lobe of of the thyroid gland measures 5.7 x 1.4 x 2.3 cm. Two small sub cm spongiform nodules in the left lobe located in the upper pole. Dominant solid nodule in the lower pole measures 2.3 x 2.1 x 1.8 cm containing small cystic foci. Isthmus: Isthmus demonstrates a centrally cystic thick-walled solid nodule measuring 1.4 x 1.2 x 1.1 cm. IMPRESSION: Multiple bilateral thyroid nodules. Dominant lesion in the right lobe consistent with a T rads level 3. Based on size percutaneous aspiration suggested. Electronically signed by: Dae Ruiz On 03/30/2020 18:56:19 PM
[2020-03-30] MEDS ORDERED: diltiaZEM 125 MG in NS 100 ML IV SCH (19:00)
[2020-03-30 19:20] LABS: FREE THYROXINE INDEX 2.2 % (1.3-4.8); THYROID STIMULATING HORMONE 0.276 uIU/ML (0.358-3.740); THYROXINE (T4) 6.4 UG/DL (4.5-12.0)
[2020-03-30] MEDS: RIVAROXABAN 20 MG TAB (XARELTO) PO SCH (19:28)
[2020-03-30 20:30] VITALS: BP 158/86
[2020-03-30] MEDS ORDERED: SLF 3 ML SYR IV PRN (21:15)
[2020-03-30] MEDS: SLF 3 ML SYR IV SCH (22:00)
[2020-03-31] VITALS (10 sets, daily range): BP systolic 115–153; BP diastolic 62–89
[2020-03-31] MEDS: FUROSEMIDE 40MG/4ML VIAL (J1940) IV SCH ×4 (00:14→18:00)
[2020-03-31] MEDS: METOPROLOL TART 12.5 MG PER 1/2 TAB PO SCH ×2 (00:15→05:21)
[2020-03-31 00:41] LABS: BLOOD UREA NITROGEN 14 MG/DL (7-18); CALCIUM LEVEL 9.3 MG/DL (8.8-10.2); CARBON DIOXIDE LEVEL 29 MEQ/L (21-32); CHLORIDE LEVEL 108 MEQ/L (98-107); CK-MB VALUE MASS 1.5 NG/ML (<3.6); CPK CREATINE PHOSPHOKINASE 58 U/L (26-192); CREATININE FOR GFR 0.66 MG/DL (0.55-1.30); GLOMERULAR FILTRATION RATE > 60.0 (>32); GLUCOSE, FASTING 115 MG/DL (70-100); MB/CK RELATIVE INDEX 2.59 (< OR =4); POTASSIUM SERUM 3.5 MEQ/L (3.5-5.1); SODIUM LEVEL 141 MEQ/L (136-145); TROPONIN I < 0.02 NG/ML (< 0.10)
[2020-03-31 04:55] LABS: BASO # 0.1 10^3/uL (0.0-0.2); BASO % 1.1 % (0.0-1.0); EOS # 0.1 10^3/uL (0.0-0.5); EOS % 1.3 % (0.0-3.0); HEMATOCRIT 40.1 % (36.0-47.0); HEMOGLOBIN 12.9 g/dl (12.0-15.5); LYMPH # 1.3 10^3/uL (1.5-5.0); LYMPH % 16.5 % (24.0-44.0); MEAN CORPUSCULAR HGB CONC 32.2 g/dl (32.0-36.5); MEAN CORPUSCULAR VOLUME 93.3 fl (80.0-96.0); MONO # 0.6 10^3/uL (0.0-0.8); MONO % 7.2 % (0.0-5.0); NEUTROPHILS # 5.8 10^3/uL (1.5-8.5); NEUTROPHILS % 73.6 % (36.0-66.0); PLATELET COUNT, AUTOMATED 191 10^3/uL (150-450); WHITE BLOOD COUNT 7.9 10^3/uL (4.0-10.0)
[2020-03-31 05:01] LABS: BLOOD UREA NITROGEN 14 MG/DL (7-18); CALCIUM LEVEL 9.4 MG/DL (8.8-10.2); CARBON DIOXIDE LEVEL 30 MEQ/L (21-32); CHLORIDE LEVEL 105 MEQ/L (98-107); CHOLESTEROL LEVEL 237 MG/DL (<200); CHOLESTEROL RISK RATIO 4.836 (<5); CK-MB VALUE MASS 1.3 NG/ML (<3.6); CPK CREATINE PHOSPHOKINASE 58 U/L (26-192); CREATININE FOR GFR 0.82 MG/DL (0.55-1.30); GLOMERULAR FILTRATION RATE > 60.0 (>32); GLUCOSE, FASTING 118 MG/DL (70-100); HDL CHOLESTEROL 49 MG/DL (>40); LDL CHOLESTEROL 156 MG/DL (<100); MAGNESIUM LEVEL 1.9 MG/DL (1.8-2.4); MB/CK RELATIVE INDEX 2.24 (< OR =4); NON-HDL-C 188 MG/DL; POTASSIUM SERUM 3.2 MEQ/L (3.5-5.1); SODIUM LEVEL 140 MEQ/L (136-145); TRIGLYCERIDES LEVEL 159 MG/DL (<150); TROPONIN I < 0.02 NG/ML (< 0.10)
[2020-03-31] MEDS: SLF 3 ML SYR IV SCH ×3 (05:21→22:00)
[2020-03-31] MEDS ORDERED: POTASSIUM CHLORIDE 10 MEQ SR TABLET PO ONE ×2 (07:00→07:45)
[2020-03-31] MEDS ORDERED: MAG SULF 1GM/100ML (MAG RUN) 1 GM in IV 1 EA IV ONE (07:45)
[2020-03-31] MEDS ORDERED: METOPROLOL TART 50 MG TAB PO ONE (10:00)
[2020-03-31] MEDS: CYANOCOBALAMIN 500 MCG TAB PO SCH (10:41)
[2020-03-31] MEDS: POTASSIUM CHLORIDE 10 MEQ SR TABLET PO SCH (10:42)
[2020-03-31 16:45] LABS: THYROGLOBULIN ANTIBODY 18.3 U/ML (<60.0); THYROID PEROXIDASE ANTIBODY 40.6 U/ML (<60.0)
[2020-03-31 17:00] LABS: BLOOD UREA NITROGEN 22 MG/DL (7-18); CALCIUM LEVEL 9.6 MG/DL (8.8-10.2); CARBON DIOXIDE LEVEL 29 MEQ/L (21-32); CHLORIDE LEVEL 107 MEQ/L (98-107); CREATININE FOR GFR 0.91 MG/DL (0.55-1.30); GLOMERULAR FILTRATION RATE > 60.0 (>32); GLUCOSE, FASTING 109 MG/DL (70-100); MAGNESIUM LEVEL 2.3 MG/DL (1.8-2.4); POTASSIUM SERUM 4.2 MEQ/L (3.5-5.1); SODIUM LEVEL 142 MEQ/L (136-145)
[2020-03-31] MEDS ORDERED: METOPROLOL 5 MG/5 ML VIAL IV SCH (18:30)
[2020-03-31] MEDS: RIVAROXABAN 20 MG TAB (XARELTO) PO SCH (18:50)
[2020-03-31] MEDS: METOPROLOL TART 50 MG TAB PO SCH (18:50)
--- NOTE | 2020-03-31 18:58 | HPE ---
DATE OF ADMISSION: 03/30/2020 CHIEF COMPLAINT: Shortness of breath, palpitations, chest heaviness. HISTORY OF PRESENT ILLNESS: This is an 79-year-old female with chronic atrial fibrillation on anticoagulation and follows with Dr. Roberson in the office, congestive heart failure, diastolic dysfunction, gastroesophageal reflux disease, asthma, deep venous thrombosis (DVT) in the right leg, brain hemorrhage, sees Dr. Salter and Dr. Burris, cerebellar cavernous angioma, presents to the emergency room with a 2 day history of worsening shortness of breath and chest pressure described as heaviness in the substernal area and epigastric area without nausea, vomiting, fever, chills, or cough. She complained of palpitations and feels like she was having pain right into the breast, worse when she walked around, unable to move from room to room without having to stop and catch her breath. She has gained about five pounds in the past month which was unintentional with increasing lower extremity edema and two pillow orthopnea. She has been noncompliant with her medications and usually does not take her Lasix on Sundays when she goes to voodoo or when she goes grocery shopping because it makes her urinate during the day and difficult to get to the bathroom and soils herself. Therefore, patient usually misses about 2-3 doses of Lasix in a week and is only compliant with about 5 days of Lasix during the week. She has been unable to climb the stairs due to shortness of breath. Despite using an inhaler this morning she has had no relief. She did not take nitroglycerin, Tylenol, aspirin, or ibuprofen. She was unable to sleep well last night, only able to sleep about 2-3 hours because she was restless and could not breathe. Patient has had no COVID exposure. She presented to the emergency room for further evaluation and was found to have atrial fibrillation with rapid ventricular response (RVR), ventricular rate of 150. CT chest shows pulmonary hypertension, no pulmonary embolism, goiter with tracheal deviation to the left, patchy infiltrates in the lungs bilaterally which could be obstructive small airway disease, occlusive vascular disease, or parenchymal disease without acute infiltrate or consolidation. Patients pro-B natriuretic peptide was 2432. Patient was given one dose of Lasix 40 mg, metoprolol 25 mg with heart rate decreasing from 150 to 77 at the bedside. Blood pressure is 130/90 at the bedside. Hospitalist was called to admit the patient for atrial fibrillation with rapid ventricular rate due to medical noncompliance as well as congestive heart failure, acute diastolic dysfunction due to medical noncompliance with her Lasix and possible hypothyroidism with tracheal deviation in the right lower lobe of the thyroid gland. PAST MEDICAL HISTORY: Chronic atrial fibrillation, CHF, diastolic dysfunction, cerebellar cavernous angioma, brain hemorrhage, right lower lobe DVT while she was in 1966, methicillin-resistant Staphylococcus aureus (MRSA) positive, actinic keratosis, macular degenerative, carpal tunnel syndrome, myalgia and myositis, hypertensive heart disease, plantar fascial fibromatosis, cervical spondylosis with myelopathy, allergic rhinitis, rectal fissure, macular degenerative of the right eye, osteoarthritis, reflux, irritable bowel syndrome, asthma. ALLERGIES: MOBIC causing hypertension. PAST SURGICAL HISTORY: Left knee surgery meniscus, right knee surgery meniscus, hysterectomy, laparoscopic abdominal surgery, left cataract surgery, teeth extraction, laser treatment to the left eye to remove the membrane, colonoscopy, and endoscopy. FAMILY HISTORY: Father with CHF and osteoarthritis. Mother osteoarthritis and hypertension. Siblings alive with diabetes and another sister with diabetes. SOCIAL HISTORY: Never smoked cigarettes. No alcohol use. No recreational drug use. Drinks coffee 1-2 times a day. 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 REVIEW OF SYSTEMS: Per history of present illness (HPI), 12-point system otherwise negative. PHYSICAL EXAMINATION: Temperature 97.7, pulse 150, irregularly irregular, respiratory rate 20, blood pressure 130/90, 98% on room air. Generally: Patient is awake, alert, oriented to person, place, and time. Answering questions appropriately. No respiratory distress, cyanosis, icterus, jaundice. No use of respiratory accessory muscles. Able to speak in full sentences. Patient has notable enlarged thyroid especially on the right. No stridor on examination, able to speak in full sentences. Lungs: Diminished, crackles bilaterally. Air entry is equal. Heart: S1, S2, irregularly irregular and tachycardic. Abdomen: Obese, soft, nontender, nondistended. Extremities: 2+ pitting edema to the sacrum. LABORATORY DATA: White count 5.8, hemoglobin 12, hematocrit 37, platelet count 175, lactic acid 1.8, total bilirubin 0.5, direct bilirubin 0.1, AST 14, ALT 16, alkaline phosphatase 71, BNP 2432, total protein 6.7, albumin 3.3, lipase 117, TSH is 0.247, sodium 145, potassium 3.7, chloride 106, bicarbonate 26, BUN 14, creatinine is 0.7, glucose is 112, troponin 0.02. EKG atrial flutter. ASSESSMENT AND PLAN: 79-year-old female with chronic atrial fibrillation, diastolic heart failure, on chronic anticoagulation, presents with 2 day history of worsening shortness of breath and chest heaviness, found to have atrial fibrillation with rapid ventricular response (RVR) and congestive heart failure with probable hyperthyroidism with low thyroid stimulating hormone (TSH). IMPRESSION: 1. Atrial fibrillation with rapid ventricular rate/atrial flutter with rapid ventricular response. 2. Acute congestive heart failure (CHF) exacerbation, diastolic function with preserved systolic function. 3. Hyperthyroidism with low thyroid stimulating hormone (TSH). 4. History of cerebellar cavernous angioma. 5. History of brain hemorrhage. 6. History of right lower extremity deep venous thrombosis (DVT). 7. Irritable bowel syndrome (IBS). 8. Asthma. 9. Reflux. 10. Osteoarthritis. 11. Macular degeneration. 12. Rectal fissure. 13. Allergic rhinitis. 14. Cervical spondylosis with myelopathy. PLAN: Patient is admitted to progressive care unit (PCU) under telemetry, resumed on her home metoprolol, currently at 12.5 every 6 hours for rate control, Lasix 40 IV every 6 hours. Fluid restriction. Strict intake and output, daily weight. Check thyroxine (T4), triiodothyronine (T3), if elevated, methimazole, and continue beta blockade. On chronic Xarelto for deep venous thrombosis (DVT) prophylaxis and atrial fibrillation. MTDD
--- NOTE | 2020-03-31 19:00 | HPE ---
DATE: 03/31/2020 SUBJECTIVE: On telemetry, patient had uncontrolled atrial fibrillation, rate ranging from 88 to 150. No complaints of chest pain, pressure, tightness, lightheadedness or dizziness. Blood pressure is well maintained at 120 to 136, however, no other issues per nursing. PHYSICAL EXAMINATION: VITALS: Temperature 97.2, pulse 80, respiratory rate 20, blood pressure 135/79, 97% on room air. GENERAL: Awake, alert and oriented x3. Answering questions appropriately. HEENT: Face is symmetric. Tongue is midline. No JVD or thyromegaly. LUNGS: Diminished, crackles bilateral bases. Air entry is equal. HEART: S1, S2, irregularly irregular and tachycardic. ABDOMEN: Soft, nontender, non-distended, positive bowel sounds. EXTREMITIES: Positive pitting edema decreased from yesterday. INPUT AND OUTPUT OVERNIGHT: Output of 1375 on 03/30/2020 and since midnight 1350. Patient's weight is 95.3 kilos from admission weight of 97.27 kilograms. LABORATORY DATA: White count 7.9, hemoglobin 12, hematocrit 40, platelet count 191,000. Sodium 140, potassium 3.2, chloride 105, bicarb 30, BUN 14, creatinine 0.82, glucose 118. Troponin less than 0.02. ASSESSMENT AND PLAN: This is an 79-year-old female with chronic atrial fibrillation, congestive heart failure, diastolic dysfunction, history of brain hemorrhage, cerebral cavernous angioma, DVT in the right lower extremity while she was complicated by hemorrhage, MRSA, actinic keratosis, macular degeneration, plantar fasciitis fibromatosis, carpal tunnel syndrome, allergic rhinitis, cervical spondylosis with myelopathy, rectal fissure, asthma, IBS, who presented to the Emergency Room with worsening shortness of breath and was found to have atrial fibrillation with RVR and congestive heart failure, acute on chronic diastolic dysfunction with preserved systolic function. Patient was noted to have abnormal TSH, which was low but normal T3, T4. Thyroid ultrasound shows multiple bilateral thyroid nodules, dominant lesion in the right lobe consistent with TI-RADS level 3, based on size, percutaneous aspiration is suggested. IMPRESSION: 1. Bilateral thyroid nodules; status post I.V. contrast study from recent CT chest, unable to perform radioactive iodine uptake scan: Patient will need percutaneous aspiration once patient's heart failure has resolved and atrial fibrillation is rate controlled. 2. Atrial fibrillation with rapid ventricular response: Patients Metoprolol has been increased to 50 mg b.i.d. Blood pressure is well maintained at 120 to 130. She has no complaints of dizziness, lightheadedness or palpitations. She was resumed back on her home dose of Xarelto at 20 mg daily. 3. Congestive heart failure decompensated with preserved systolic function, diastolic dysfunction: Currently on fluid restriction 2 liters, strict I's and Os, daily weights and Lasix 40 mg I.V. every 6 hours, monitoring patient's electrolytes and supplementing as needed. Patient's potassium today is only 3.2 and magnesium of 1.9; goal potassium greater than 4 and magnesium greater than 2. Therefore, she has been given potassium and magnesium supplements. Recheck again at noontime and 6:00 p.m. in order to optimize. 4. History of MRSA: Currently on contact precautions. 5. PT/OT evaluation. [facility]
[2020-03-31] MEDS ORDERED: DOCUSATE SODIUM 100 MG CAP PO PRN (19:30)
[2020-03-31] MEDS ORDERED: CALCIUM CARBONATE 500 MG CHEW U/D PO PRN (19:30)
[2020-03-31] MEDS ORDERED: SENNA 8.6 MG TAB (SENOKOT) PO PRN (19:30)
[2020-03-31] MEDS ORDERED: METOPROLOL TART 50 MG TAB PO SCH (21:00)
[2020-03-31] MEDS ORDERED: METOPROLOL TART 25 MG TABLET PO SCH (21:00)
[2020-04-01] VITALS: BP 121/74
[2020-04-01] MEDS: METOPROLOL TART 50 MG TAB PO SCH ×2 (00:40→05:28)
[2020-04-01 04:00] VITALS: BP 158/89
[2020-04-01 04:47] LABS: BASO # 0.1 10^3/uL (0.0-0.2); BASO % 1.3 % (0.0-1.0); EOS # 0.2 10^3/uL (0.0-0.5); EOS % 2.7 % (0.0-3.0); HEMATOCRIT 40.2 % (36.0-47.0); HEMOGLOBIN 12.8 g/dl (12.0-15.5); LYMPH # 2.9 10^3/uL (1.5-5.0); MEAN CORPUSCULAR HEMOGLOBIN 30.2 pg (27.0-33.0); MEAN CORPUSCULAR HGB CONC 31.8 g/dl (32.0-36.5); MEAN CORPUSCULAR VOLUME 94.8 fl (80.0-96.0); MONO # 0.6 10^3/uL (0.0-0.8); MONO % 8.1 % (0.0-5.0); NEUTROPHILS # 3.3 10^3/uL (1.5-8.5); NEUTROPHILS % 46.6 % (36.0-66.0); PLATELET COUNT, AUTOMATED 189 10^3/uL (150-450); RED BLOOD COUNT 4.24 10^6/uL (4.00-5.40); WHITE BLOOD COUNT 7.1 10^3/uL (4.0-10.0)
[2020-04-01 05:09] LABS: BLOOD UREA NITROGEN 23 MG/DL (7-18); CARBON DIOXIDE LEVEL 27 MEQ/L (21-32); CHLORIDE LEVEL 109 MEQ/L (98-107); CREATININE FOR GFR 0.82 MG/DL (0.55-1.30); GLOMERULAR FILTRATION RATE > 60.0 (>32); GLUCOSE, FASTING 89 MG/DL (70-100); MAGNESIUM LEVEL 2.1 MG/DL (1.8-2.4); POTASSIUM SERUM 4.1 MEQ/L (3.5-5.1); SODIUM LEVEL 139 MEQ/L (136-145)
[2020-04-01] MEDS: FUROSEMIDE 40MG/4ML VIAL (J1940) IV SCH ×2 (05:23)
[2020-04-01] MEDS: SLF 3 ML SYR IV SCH (05:28)
[2020-04-01 08:00] VITALS: BP 120/76
--- NOTE | 2020-04-01 08:11 | REPVR ---
PROCEDURE INFORMATION: Exam: XR Chest, 1 View Exam date and time: 04/01/2020 7:15 AM Age: 79 years old Clinical indication: Shortness of breath; Additional info: SOB R/O chf TECHNIQUE: Imaging protocol: XR of the chest Views: 1 view. COMPARISON: CR PORTABLE CHEST X-RAY 03/30/2020 10:31 AM FINDINGS: Lungs: Suspicion chronic bronchiectasis right lower lung. Pleural space: Unremarkable. No pleural effusion. No pneumothorax. Heart/Mediastinum: Heart size is similar. Soft tissue opacity at the right thoracic inlet impresses on the adjacent trachea secondary to demonstrated thyroid enlargement or dominant thyroid nodule. Vasculature: Tortuous thoracic aorta. Diaphragm: Elevation of right hemidiaphragm. Bones/joints: Osteopenia. Degenerative change of the spine. Area of sclerosis proximal right humerus. Other findings: No overt edema. IMPRESSION: 1. Cardiomegaly. 2. Right lower lung bronchiectasis. 3. Soft tissue opacity at the right thoracic inlet with impression on the adjacent upper trachea. Electronically signed by: Lenora Kirk On 04/01/2020 08:11:08 AM
[2020-04-01] MEDS ORDERED: atenoloL 50 MG TAB PO ONE (09:00)
[2020-04-01 10:22] VITALS: BP 120/76
[2020-04-01] MEDS: CYANOCOBALAMIN 500 MCG TAB PO SCH (10:23)
[2020-04-01] MEDS: POTASSIUM CHLORIDE 10 MEQ SR TABLET PO SCH (10:23)
[2020-04-01] MEDS ORDERED: ATEN100T PO (10:52)
[2020-04-01 12:00] VITALS: BP 140/80
[2020-04-01] MEDS ORDERED: SELF1KIT MC (12:44)
[2020-04-01] MEDS ORDERED: atenoloL 50 MG TAB PO SCH (21:00)
--- NOTE | 2020-04-02 11:15 | ECGEPIP ---
[facility] - ED Test Date: 2020-03-30 Pat Name: BERNY LISA Department: Room: - Gender: Female Design Intern: KK : [id number] Requested By: Paz Bateman Order Number: [id number] Reading MD: Pedro Luis Whyte Measurements Intervals [place] Rate: 77 P: [place]: 0 QRS: 21 QRSD: 113 T: 62 QT: 374 QTc: 425 Interpretive Statements ATRIAL FLUTTER INCOMPLETE RIGHT BUNDLE BRANCH BLOCK RHYTHM/RATE CHANGE COMPARED TO 03/28/19 Electronically Signed on 04-02-2020 11:15:23 EDT by Pedro Luis Whyte
--- NOTE | 2020-04-18 11:21 | DS ---
DATE OF ADMISSION: 03/30/2020 DATE OF DISCHARGE: 04/01/2020 PRIMARY DISCHARGE DIAGNOSES: 1. Atrial fibrillation with rapid ventricular response. 2. Acute congestive heart failure exacerbation. 3. Bilateral thyroid nodules. Requires fine-needle aspiration and biopsy as outpatient. 4. History of methicillin-resistant Staphylococcus aureus. DISCHARGE MEDICATIONS: - atenolol 100 mg daily - acetaminophen 1.3 grams as needed daily - albuterol two puffs every 4 as needed - Refresh eyedrop one both eyes four times a day - vitamin B12 at 1000 mcg daily - Lasix 20 daily - omeprazole 40 daily - potassium 10 mEq daily - Xarelto 20 mg daily - PreserVision AREDS two capsules daily DISCHARGE INSTRUCTIONS: Patient is to followup with Dr. Roberson within 5 days of hospital discharge for adjustment of rate-controlled medications, primary care physician within 1-2 weeks. HOSPITAL COURSE: This is an 79-year-old female who was in her usual state of health until 2 days prior to presentation, when she complained of worsening shortness of breath. In the emergency room (ER), she was found to have atrial fibrillation with rapid ventricular response, rate of 120-130. Given home dose of metoprolol, increased to 25 mg by mouth with resultant improvement. She was admitted to the telemetry unit with peak heart rate of 150 and given additional doses of metoprolol 25 mg every 6 hours, and transitioned to atenolol 100 mg twice a day. Blood pressure was well maintained, 120-158 systolic. Cardiac markers were unremarkable. No ST elevations found on EKG. Patient's thyroid stimulating hormone (TSH) was elevated, but T3 and T4 were normal. Thyroid ultrasound shows multiple thyroid nodules with dominant lesion in the right lobe consistent with TI-RADS level 3 based on size. Percussion aspiration was suggested. This was discussed with the patient. Primary care physician (PCP) to refer to ears, nose, and throat (ENT) and to arrange for a fine needle aspiration and biopsy as outpatient. She was given two doses of Lasix and was net negative for 3 days with weight of 97 kg on discharge. Shortness of breath had improved. CT chest showed no pulmonary embolism. Patchy ground-glass opacity with mosaic pattern, which is nonspecific for a possible obstructive small airway disease, occlusive vascular or parenchymal disease. No pulmonary embolism was seen. There is thyroid gland enlargement, further evaluated by thyroid ultrasound. Repeat chest x-ray Ronel 18, showed right lower lung bronchiectasis, cardiomegaly, and soft tissue opacity at the right thoracic inlet with impression of adjacent upper trachea. PHYSICAL EXAMINATION ON HOSPITAL DISCHARGE: Temperature 97.4, pulse 76, respiratory rate 16, blood pressure 120/76, 96% on room air. GENERAL: Patient is awake, alert, oriented times three, answering questions appropriately. No jugular venous distention (JVD). Patient has tracheal deviation to the right but no stridor on exam. Able to speak in full sentences. No cyanosis. LUNGS: Clear to auscultation. No wheezing, rales, or rhonchi. HEART: S1, S2, irregularly irregular. ABDOMEN: Obese, soft, nontender, nondistended. EXTREMITIES: No pitting edema. LABORATORY DATA: White count 7.1, hemoglobin 12, hematocrit 40, platelet count 189. Sodium 139, potassium 4.1, chloride 109, bicarbonate 27, BUN 23, creatinine 0.82, glucose 89. Lipid profile: Triglycerides 159, total cholesterol 237, LDL 156, HDL 49. TSH 0.276, free T4 index 2.2, T4 of 6.4, T3 of 35. Blood cultures, two sets, negative. Thyroid ultrasound: Multiple bilateral thyroid nodules. Dominant lesion in the right lobe measuring TI-RADS level 3. Percussion aspiration. Recommended vascular ultrasound, bilateral lower extremities. No deep venous thrombosis (DVT). A 2.4 x 1.1 x 2.[address] Callejas cyst is seen. CT chest: No pulmonary embolism. Mild ground glass opacity in the lungs bilaterally. Differential is nonspecific. Obstructive small airway occlusive vascular disease or parenchymal disease. No acute infiltrate or consolidation. A 5.5 cm right lobe of the thyroid compressing, displacement of trachea to the left. TIME SPENT ON DISCHARGE: 30 minutes. MTDD
== END 2020-04-01 14:55 | disposition home or self-care (01) | DRG 308 ==
LOC: M ED 10:08 → EEVIPCON 17:43 → M ED INP 17:43 → ENRESERV 18:31 → CANRESERV 18:31 → ENRESERV 18:41 → M PCU 20:32
PROVIDERS: ADMIT Internal Medicine; ATTEND Internal Medicine
DX: I48.20 Chronic atrial fibrillation, unspecified (principal); I50.33 Acute on chronic diastolic (congestive) heart failure; M47.12 Other spondylosis with myelopathy, cervical region; Z79.01 Long term (current) use of anticoagulants; K21.9 Gastro-esophageal reflux disease without esophagitis; J45.909 Unspecified asthma, uncomplicated; I11.0 Hypertensive heart disease with heart failure; M19.90 Unspecified osteoarthritis, unspecified site; H35.30 Unspecified macular degeneration; L57.0 Actinic keratosis; M79.10 Myalgia, unspecified site; Z86.718 Personal history of other venous thrombosis and embolism; E04.1 Nontoxic single thyroid nodule; E87.6 Hypokalemia; E83.42 Hypomagnesemia

== ENCOUNTER 2020-04-06 14:24 | Emergency (ER) | payer MEDICARE ==
[~2020-04-06] VITALS: Ht 165.1 cm; Wt 97.7 kg
[~2020-04-06 14:24] MED LIST changes: +ATEN100T PO; +K-TA10TA2 PO; +METO50TA7 PO; +OMEP-221 PO; +SELF1KIT MC
[2020-04-06 16:14] LABS: BASO # 0.1 10^3/uL (0.0-0.2); EOS # 0.1 10^3/uL (0.0-0.5); EOS % 1.6 % (0.0-3.0); HEMATOCRIT 36.6 % (36.0-47.0); HEMOGLOBIN 11.6 g/dl (12.0-15.5); LYMPH % 30.2 % (24.0-44.0); MEAN CORPUSCULAR HEMOGLOBIN 30.3 pg (27.0-33.0); MEAN CORPUSCULAR HGB CONC 31.7 g/dl (32.0-36.5); MEAN CORPUSCULAR VOLUME 95.6 fl (80.0-96.0); MONO # 0.5 10^3/uL (0.0-0.8); NEUTROPHILS % 58.9 % (36.0-66.0); PLATELET COUNT, AUTOMATED 176 10^3/uL (150-450); RED BLOOD COUNT 3.83 10^6/uL (4.00-5.40); WHITE BLOOD COUNT 6.8 10^3/uL (4.0-10.0)
[2020-04-06 16:27] LABS: INR 1.51; PROTHROMBIN TIME 18.5 SECONDS (12.5-14.3)
[2020-04-06 16:46] LABS: BLOOD UREA NITROGEN 22 MG/DL (7-18); CALCIUM LEVEL 8.8 MG/DL (8.8-10.2); CARBON DIOXIDE LEVEL 27 MEQ/L (21-32); CHLORIDE LEVEL 111 MEQ/L (98-107); CK-MB VALUE MASS < 1.0 NG/ML (<3.6); CPK CREATINE PHOSPHOKINASE 45 U/L (26-192); GLOMERULAR FILTRATION RATE 56.6 (>32); GLUCOSE, FASTING 101 MG/DL (70-100); MB/CK RELATIVE INDEX 2.22 (< OR =4); NT-PRO BNP 461 PG/ML (<450); POTASSIUM SERUM 4.1 MEQ/L (3.5-5.1); SODIUM LEVEL 144 MEQ/L (136-145); TROPONIN I < 0.02 NG/ML (< 0.10)
--- NOTE | 2020-04-06 16:46 | REPVR ---
PROCEDURE INFORMATION: Exam: XR Chest, 1 View Exam date and time: 04/06/2020 3:49 PM Age: 79 years old Clinical indication: Chest pain TECHNIQUE: Imaging protocol: XR of the chest Views: Frontal portable upright view of the chest. COMPARISON: CR PORTABLE CHEST X-RAY 04/01/2020 7:42 AM FINDINGS: Tubes, catheters and devices: EKG leads are present overlying the chest. Lungs: The pulmonary vasculature is congested. Mild left medial basilar subsegmental atelectasis. The lungs are otherwise peripherally clear bilaterally. Pleural space: No pleural effusion. No pneumothorax. Heart/Mediastinum: Mediastinum: Stable. Vasculature: Mild aortic arch atherosclerotic calcification without ectasia. Bones/joints: Nonspecific sclerotic focus medial right humeral neck, stable. Thoracic spine vertebral body marginal osteophytes are noted at multiple levels. IMPRESSION: 1. Pulmonary vascular congestion. 2. Mild left medial basilar subsegmental atelectasis. Electronically signed by: Margarito Medina On 04/06/2020 16:46:09 PM
[2020-04-06 17:39] VITALS: BP 147/72
--- NOTE | 2020-04-07 20:49 | ECGEPIP ---
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
--- NOTE | 2020-04-08 16:41 | ED PDOC ---
Post-Departure Follow-Up dr hernandez faxed formal report of cxr for fu Justice Cho MD Apr 08, 2020 16:41
== END 2020-04-06 17:52 | disposition home or self-care (01) ==
LOC: M ED 14:24
DX: R00.1 Bradycardia, unspecified (principal); I11.0 Hypertensive heart disease with heart failure; R09.89 Other specified symptoms and signs involving the circulatory and respiratory systems; J98.11 Atelectasis; Z79.51 Long term (current) use of inhaled steroids; Z79.899 Other long term (current) drug therapy

== ENCOUNTER → 2020-05-06 | Outpatient (CLI) | payer MEDICARE ==
[~2020-05-06] MED LIST changes: +E-Z-GAS II EFFERVESCENT PACKET (SODIUM BICARB./CITRIC ACID/SIMETHICONE) As Ordered ONE; +E-Z-HD 98% w/w 340GM SUSP BTL As Ordered ONE; +E-Z-PAQUE 96% w/w SUSP 176GM BTL As Ordered ONE; +ISOVUE-370 76% 100ML VIAL As Ordered ONE
--- NOTE | 2020-05-06 16:34 | REP ---
INDICATION: DYSPHAGIA, NECK MASSXR,1CT2 COMPARISON: None TECHNIQUE: This procedure was performed by Oliva Mina [facility], under the direct supervision of Dr. Corea. Images were reviewed with Dr. Corea prior to dictation. Liquid barium and gas producing crystals were given in the erect position, as well as liquid barium in the prone oblique position in order to perform a double contrast upper GI examination. FINDINGS: A single view PA chest x-ray is submitted as a jig and fixture maker film. There is no change since the previous two view chest x-ray dated 05/26/2018. The oral and pharyngeal stages of deglutition were unremarkable. Esophageal transport is prompt and efficient and there is no evidence of esophagitis, stricture, or mucosal ring. There is no evidence of a hiatal hernia. Gastroesophageal reflux was visualized to the level of the thoracic inlet.. IMPRESSION: 1. Gastroesophageal reflux to the level of thoracic inlet. 0.4 minutes of fluoroscopy time was utilized for this procedure. Some fluoroscopic images are performed with last image hold technology. These images require no additional radiation.. <Electronically signed by Oliva Mina > 05/06/20 1619 <Electronically signed by Sanjay Corea > 05/06/20 1636
--- NOTE | 2020-05-07 11:27 | REPVR ---
PROCEDURE INFORMATION: Exam: CT Neck With Contrast Exam date and time: 05/06/2020 8:21 AM Age: 79 years old Clinical indication: Mass, lump, or swelling in neck; Additional info: Dysphagia, neck massxr1, ct2 TECHNIQUE: Imaging protocol: Computed tomography images of the neck with intravenous contrast. Radiation optimization: All CT scans at this facility use at least one of these dose optimization techniques: automated exposure control; mA and/or kV adjustment per patient size (includes targeted exams where dose is matched to clinical indication); or iterative reconstruction. Contrast material: ISOVUE 370; Contrast volume: 75 ml; Contrast route: INTRAVENOUS (IV); COMPARISON: Thyroid, ST head+neck US 03/30/2020 6:17 PM FINDINGS: Brain: The imaged brain is unremarkable. Mastoid air cells: The imaged tympanomastoid cavities are aerated. Nasal cavity: Normal. Nasopharynx: Unremarkable. Oral Cavity: Normal. Oropharynx: No significant tonsillar enlargement. Hypopharynx: Unremarkable. Larynx: Normal. Retropharyngeal space: Unremarkable. Submandibular/Parotid glands: The major salivary glands appear normal. Thyroid: Multiple bulky heterogeneous solid and cystic thyroid nodules and masses, measuring up to 5.1 x 4.8 x 5.4 cm on the right with associated mass effect including leftward displacement of the trachea and esophagus without significant tracheal narrowing. Lymph nodes: No lymphadenopathy. Lungs: The imaged lung apices show no acute abnormality. Bones/joints: Severe bilateral degenerative change at the sternoclavicular and anterior rib articulations with exuberant partially calcified pannus bilaterally. No severe osseous spinal canal stenosis. Multilevel overall moderate degenerative findings. Vasculature: Two vessel aortic arch. Moderate scattered atherosclerotic calcifications. Soft tissues: No significant soft tissue swelling. IMPRESSION: Multinodular thyroid with multiple solid and cystic thyroid masses, largest on the right, with resultant leftward shift of the trachea and esophagus without significant narrowing of the trachea. Electronically signed by: Du Hooper On 05/07/2020 11:27:34 AM
== END ==
LOC: M RAD 07:16
PROVIDERS: ATTEND Otolaryngology
DX: R13.10 Dysphagia, unspecified (principal); K21.9 Gastro-esophageal reflux disease without esophagitis; E04.1 Nontoxic single thyroid nodule
CPT/HCPCS: 70491; 74220; Q9967

== ENCOUNTER → 2020-05-09 | Outpatient (CLI) | payer MEDICARE ==
[~2020-05-09] MED LIST changes: -E-Z-GAS II EFFERVESCENT PACKET (SODIUM BICARB./CITRIC ACID/SIMETHICONE) As Ordered ONE; -E-Z-HD 98% w/w 340GM SUSP BTL As Ordered ONE; -E-Z-PAQUE 96% w/w SUSP 176GM BTL As Ordered ONE; -ISOVUE-370 76% 100ML VIAL As Ordered ONE; +LIDOCAINE 1% MDV 20ML VIAL As Ordered ONE; +SODIUM BICARBONATE 8.4% INJ 50MEQ 50 ML VIAL As Ordered ONE
[2020-05-09 11:49] VITALS: BP 198/99
--- NOTE | 2020-05-09 15:27 | REP ---
INDICATION: MULTIPLE THYROID NODULES. COMPARISON: Thyroid ultrasound dated 03/30/2020; CT neck with contrast dated 05/06/2020 TECHNIQUE: The procedure was performed by ROSA MARIA Moore, under the direct supervision of Dr. Corea. The risks and benefits of the procedure were explained to the patient and an informed consent was obtained both verbally and written. Directly prior to the start of the procedure a formal time-out was completed in the procedure room. FINDINGS: Using ultrasound guidance the right, isthmus, and left thyroid nodules were localized. The skin was prepped and draped in a sterile fashion. A total of 8 mL of buffered lidocaine was used as a local anesthetic. Using ultrasound guidance 4 fine-needle aspirations were obtained of each nodule using 25 gauge needles. The patient tolerated the procedure well and there were no immediate complications. After the appropriate amount of monitored convalescence the patient was discharged from the department. IMPRESSION: 1. Successful ultrasound-guided thyroid nodule FNA x3. <Electronically signed by Oliva Mina > 05/09/20 1351 <Electronically signed by Sanjay Corea > 05/09/20 1523
== END ==
LOC: M IRPRO 10:01
PROVIDERS: ATTEND Otolaryngology
DX: D34 Benign neoplasm of thyroid gland (principal); R13.10 Dysphagia, unspecified

== ENCOUNTER → 2020-05-24 | Outpatient (REF) | payer MEDICARE ==
[~2020-05-24] MED LIST changes: -LIDOCAINE 1% MDV 20ML VIAL As Ordered ONE; -SODIUM BICARBONATE 8.4% INJ 50MEQ 50 ML VIAL As Ordered ONE
[2020-05-24 11:45] LABS: BASO # 0.1 10^3/uL (0.0-0.2); BASO % 1.7 % (0.0-1.0); EOS # 0.2 10^3/uL (0.0-0.5); HEMATOCRIT 41.3 % (36.0-47.0); LYMPH # 1.8 10^3/uL (1.5-5.0); LYMPH % 31.2 % (24.0-44.0); MEAN CORPUSCULAR HEMOGLOBIN 29.6 pg (27.0-33.0); MEAN CORPUSCULAR HGB CONC 31.5 g/dl (32.0-36.5); MEAN CORPUSCULAR VOLUME 94.1 fl (80.0-96.0); MONO # 0.5 10^3/uL (0.0-0.8); MONO % 8.7 % (0.0-5.0); NEUTROPHILS # 3.2 10^3/uL (1.5-8.5); NEUTROPHILS % 55.1 % (36.0-66.0); PLATELET COUNT, AUTOMATED 184 10^3/uL (150-450); RED BLOOD COUNT 4.39 10^6/uL (4.00-5.40); WHITE BLOOD COUNT 5.7 10^3/uL (4.0-10.0)
[2020-05-24 12:11] LABS: BLOOD UREA NITROGEN 18 MG/DL (7-18); CALCIUM LEVEL 9.4 MG/DL (8.8-10.2); CARBON DIOXIDE LEVEL 30 MEQ/L (21-32); CHLORIDE LEVEL 109 MEQ/L (98-107); CREATININE FOR GFR 0.75 MG/DL (0.55-1.30); GLOMERULAR FILTRATION RATE > 60.0 (>32); GLUCOSE, FASTING 101 MG/DL (70-100); POTASSIUM SERUM 4.3 MEQ/L (3.5-5.1); SODIUM LEVEL 144 MEQ/L (136-145)
== END ==
LOC: M LABDRAWC 11:12
PROVIDERS: ATTEND Internal Medicine Cardiovascular Disease
DX: I49.5 Sick sinus syndrome (principal)

== ENCOUNTER → 2020-05-25 | Outpatient (CLI) | payer MEDICARE | LOC: M LABSMTC 10:28 | PROVIDERS: ATTEND Internal Medicine Cardiovascular Disease | DX: I49.5 Sick sinus syndrome (principal) ==

== ENCOUNTER → 2020-08-10 | Outpatient (REF) | payer MEDICARE ==
[~2020-08-10] MED LIST changes: +CYAN500T14 PO; -CYAN500T8 PO
[2020-08-10 16:26] LABS: FREE T4 0.82 NG/DL (0.76-1.46); THYROID STIMULATING HORMONE 0.354 uIU/ML (0.358-3.740)
== END ==
LOC: M SFHCCLAY 10:35
PROVIDERS: ATTEND Family Medicine
DX: E04.2 Nontoxic multinodular goiter (principal)
CPT/HCPCS: 84439; 84443; 84481; G0463

== ENCOUNTER → 2020-11-03 | Outpatient (CLI) | payer MEDICARE ==
--- NOTE | 2020-11-03 14:58 | REP ---
INDICATION: COUGH; WORSENING SOB AND DESAI; HX OF CHF COMPARISON: 04/06/2020 TECHNIQUE: PA and lateral. FINDINGS: The mediastinum and cardiac silhouette are normal. Relatively recently placed pacemaker with leads overlying the right atrium and right ventricle. The lung carrizales are clear and without acute consolidation, effusion, or pneumothorax. The skeletal structures are intact and normal. IMPRESSION: No acute cardiopulmonary process. <Electronically signed by Jean Rubin > 11/03/20 [id number]
== END ==
LOC: M CLY 14:34
PROVIDERS: ATTEND Physician Assistant
DX: R06.09 Other forms of dyspnea (principal)

== ENCOUNTER → 2020-12-21 | Outpatient (CLI) | payer MEDICARE ==
--- NOTE | 2020-12-21 12:20 | REP ---
INDICATION: MULTINODULAR GOITER. COMPARISON: None. TECHNIQUE: Multiple ultrasonographic images of the thyroid FINDINGS: The right lobe of the thyroid gland measures 6.1 x 5.3 x 4.7 cm and the left lobe measures 3.7 x 2.1 x 1.8 cm. The isthmus measures 9 mm. The large 5.4 cm size mass seen previously in the right lobe of the thyroid gland now has the appearance of occupying nearly all of the tissue of the right lobe with an overall measurement of 5.7 x 4.6 x 4 cm. Within the isthmus there is a complex nodule which measures 1.1 x 0.9 x 0.8 cm. Within the left lobe there are 2 heterogenous nodules 1 superiorly measuring 8 mm and the other inferiorly measuring 2.2 cm. IMPRESSION: The right-sided mass has increased in size as described above. Further evaluation with radio iodide 123 may be warranted. Neoplastic change cannot be ruled out by this exam. <Electronically signed by Haseeb Scott > 12/21/20 2950
== END ==
LOC: M RAD 10:26
PROVIDERS: ATTEND Otolaryngology
DX: E04.1 Nontoxic single thyroid nodule (principal)

== ENCOUNTER → 2020-12-30 | Outpatient (CLI) | payer MEDICARE ==
[2020-12-30 15:14] LABS: FREE T3 3.1 PG/ML (2.2-4.0); FREE T4 0.79 NG/DL (0.76-1.46); THYROID STIMULATING HORMONE 0.295 uIU/ML (0.358-3.740)
[2021-01-03 12:08] LABS: THRYOGLOBULIN ANTIBODIES (ATA) < 1.0 IU/mL (0.0-0.9); THYROGLOBULIN QUANTITATIVE 1417.7 ng/mL (1.5-38.5)
== END ==
LOC: M LAB 13:29
PROVIDERS: ATTEND Otolaryngology
DX: E04.2 Nontoxic multinodular goiter (principal)

== ENCOUNTER → 2021-01-09 | Outpatient (CLI) | payer MEDICARE ==
[~2021-01-09] MED LIST changes: +LIDOCAINE 1% MDV 20ML VIAL As Ordered ONE; +SODIUM BICARBONATE 8.4% INJ 50MEQ 50 ML VIAL As Ordered ONE; +VITA200020 PO
[2021-01-09 15:34] VITALS: BP 170/81
--- NOTE | 2021-01-09 16:25 | REP ---
INDICATION: BILATERAL ISTHMUS LN BIOPSY. COMPARISON: None. TECHNIQUE: The procedure was performed by Oliva Mina [facility], under the direct supervision of Dr. Tellez. The risks and benefits of the procedure were explained to the patient and an informed consent was obtained both verbally and written. Directly prior to the start of the procedure a formal time-out was completed in the procedure room. The right, isthmus, and left lobe thyroid nodules were localized using ultrasound guidance. The skin was prepped and draped in a sterile fashion. The right lobe nodule was isolated 1st, approximately 6 mL of buffered lidocaine was used as a local anesthetic. Using ultrasound guidance a 6 fine needle aspirations were obtained using 25 gauge needles. Four specimens were put in CytoLyt and sent to the laboratory for further analysis, the remaining 2 were sent out for AFIRMA testing. The isthmus nodule was then isolated, and approximately 3 mL of buffered lidocaine was used as a local anesthetic. Using ultrasound guidance a 6 fine needle aspirations were obtained using 25 gauge needles. Four specimens were put in CytoLyt and sent to the laboratory for further analysis, the remaining 2 were sent out for AFIRMA testing. Lastly the left lobe nodule was isolated, and approximately 4 mL of buffered lidocaine was used as a local anesthetic. Using ultrasound guidance a 6 fine needle aspirations were obtained using 25 gauge needles. Four specimens were put in CytoLyt and sent to the laboratory for further analysis, the remaining 2 were sent out for AFIRMA testing. FINDINGS: The patient tolerated the procedure well and there were no immediate complications. After the appropriate amount of monitored convalescence the patient was discharged from the department. IMPRESSION: Ultrasound-guided fine needle aspirations of the left, right, and isthmus nodules. <Electronically signed by Oliva Mina > 01/09/21 1620 <Electronically signed by Darron Tellez > 01/09/21 1624
== END ==
LOC: M IRPRO 13:16
PROVIDERS: ATTEND Otolaryngology
DX: E04.2 Nontoxic multinodular goiter (principal)

== ENCOUNTER → 2021-01-20 | Outpatient (REF) | payer MEDICARE ==
[~2021-01-20] MED LIST changes: -LIDOCAINE 1% MDV 20ML VIAL As Ordered ONE; -SODIUM BICARBONATE 8.4% INJ 50MEQ 50 ML VIAL As Ordered ONE
== END ==
LOC: M LAB REF 17:33
PROVIDERS: ATTEND Physician Assistant
DX: D22.22 Melanocytic nevi of left ear and external auricular canal (principal); L57.0 Actinic keratosis

== ENCOUNTER → 2021-02-13 | Outpatient (REF) | payer MEDICARE ==
[2021-02-13 17:09] LABS: HEMATOCRIT 40.3 % (36.0-47.0); HEMOGLOBIN 12.8 g/dl (12.0-15.5); MEAN CORPUSCULAR HGB CONC 31.8 g/dl (32.0-36.5); MEAN CORPUSCULAR VOLUME 94.4 fl (80.0-96.0); PLATELET COUNT, AUTOMATED 195 10^3/uL (150-450); RED BLOOD COUNT 4.27 10^6/uL (4.00-5.40); WHITE BLOOD COUNT 6.4 10^3/uL (4.0-10.0)
[2021-02-13 17:13] LABS: ALBUMIN 3.5 GM/DL (3.2-5.2); ALT/SGPT 19 U/L (12-78); BILIRUBIN,TOTAL 0.4 MG/DL (0.2-1.0); BLOOD UREA NITROGEN 13 MG/DL (7-18); CALCIUM LEVEL 9.1 MG/DL (8.8-10.2); CARBON DIOXIDE LEVEL 30 MEQ/L (21-32); CHLORIDE LEVEL 112 MEQ/L (98-107); CREATININE FOR GFR 0.65 MG/DL (0.55-1.30); FREE T3 2.8 PG/ML (2.2-4.0); GLOMERULAR FILTRATION RATE > 60.0 (>32); GLUCOSE, FASTING 96 MG/DL (70-100); SODIUM LEVEL 146 MEQ/L (136-145); THYROID STIMULATING HORMONE 0.203 uIU/ML (0.358-3.740); TOTAL PROTEIN 6.8 GM/DL (6.4-8.2)
== END ==
LOC: M SFHCCLAY 10:22
PROVIDERS: ATTEND Family Medicine
DX: E04.2 Nontoxic multinodular goiter (principal)
CPT/HCPCS: 80053; 84439; 84443; 84481; 85027; G0463

== ENCOUNTER → 2021-04-15 | Outpatient (CLI) | payer MEDICARE ==
[~2021-04-15] MED LIST changes: +D31000TA2 PO; -KLOR10TA76 PO; +METO25TA4 PO; +MM S100C PO; +POTA-136 PO
== END ==
LOC: M LABSMTC 10:55
PROVIDERS: ATTEND Anesthesiology
DX: Z01.812 Encounter for preprocedural laboratory examination (principal); Z20.822 Contact with and (suspected) exposure to COVID-19

== ENCOUNTER → 2021-04-17 | Outpatient (REF) | payer MEDICARE ==
[2021-04-17 11:40] LABS: HEMATOCRIT 39.1 % (36.0-47.0); HEMOGLOBIN 12.5 g/dl (12.0-15.5); MEAN CORPUSCULAR HEMOGLOBIN 30.5 pg (27.0-33.0); MEAN CORPUSCULAR VOLUME 95.4 fl (80.0-96.0); PLATELET COUNT, AUTOMATED 176 10^3/uL (150-450); WHITE BLOOD COUNT 5.8 10^3/uL (4.0-10.0)
[2021-04-17 11:50] LABS: INR 1.23; PROTHROMBIN TIME 15.9 SECONDS (12.7-14.5)
[2021-04-17 12:51] LABS: ALBUMIN 3.4 GM/DL (3.2-5.2); ALT/SGPT 16 U/L (12-78); BILIRUBIN,TOTAL 0.5 MG/DL (0.2-1.0); BLOOD UREA NITROGEN 13 MG/DL (7-18); CALCIUM LEVEL 9.1 MG/DL (8.8-10.2); CARBON DIOXIDE LEVEL 28 MEQ/L (21-32); CHLORIDE LEVEL 111 MEQ/L (98-107); FREE T3 3.1 PG/ML (2.2-4.0); GLOMERULAR FILTRATION RATE > 60.0 (>32); GLUCOSE, FASTING 96 MG/DL (70-100); POTASSIUM SERUM 3.9 MEQ/L (3.5-5.1); SODIUM LEVEL 145 MEQ/L (136-145); THYROID STIMULATING HORMONE 0.322 uIU/ML (0.358-3.740); TOTAL PROTEIN 6.7 GM/DL (6.4-8.2)
== END ==
LOC: M SFHCCLAY 08:14
PROVIDERS: ATTEND Family Medicine
DX: Z01.818 Encounter for other preprocedural examination (principal); E04.2 Nontoxic multinodular goiter

== ENCOUNTER 2021-04-20 09:09 | Observation (INO) | payer MEDICARE ==
[~2021-04-20] VITALS: Ht 165.1 cm; Wt 97.0 kg
[~2021-04-20 09:09] MED LIST changes: +LR 1,000 ML IV ONE; +dexameTHASONE 4 MG/ML 1ML VIAL (J1100 PER 1MG) IV ONE
[2021-04-20] MEDS ORDERED: REMIFENTANIL 1MG 3ML VIAL As Ordered ONE ×3 (09:42→13:44)
[2021-04-20] MEDS ORDERED: propofoL 200 MG/20 ML VIAL As Ordered ONE (09:43)
[2021-04-20] MEDS ORDERED: ROCURONIUM BROMIDE 50 MG/5 ML VIAL As Ordered ONE (09:43)
[2021-04-20] MEDS ORDERED: fentaNYL 100 MCG/2 ML INJECTION (J3010) As Ordered ONE (09:43)
[2021-04-20] MEDS ORDERED: SUCCINYLCHOLINE 100 MG/5 ML SYRINGE (J0330) As Ordered ONE (09:43)
[2021-04-20] MEDS ORDERED: LIDOCAINE 2% 100MG/5ML SDV (FOR ANES.) As Ordered ONE (09:43)
[2021-04-20] MEDS ORDERED: dexameTHASONE 4 MG/ML 1ML VIAL (J1100 PER 1MG) As Ordered ONE (10:33)
[2021-04-20] MEDS ORDERED: ONDANSETRON 4MG/2ML VIAL As Ordered ONE (10:33)
[2021-04-20] MEDS ORDERED: OXYMETAZOLINE 0.05% NASAL SPRAY (AFRIN) As Ordered ONE (10:36)
[2021-04-20] MEDS ORDERED: METHYLENE BLUE 0.5% (5MG/ML) 10 ML AMP (PROVAYBLUE) As Ordered ONE (10:36)
[2021-04-20] MEDS ORDERED: CEFUROXIME INJ 1.5 GM VIAL (J0697 PER 750MG) As Ordered ONE (11:29)
[2021-04-20] MEDS ORDERED: LIDOCAINE W/EPINEPHRINE 1% 20ML VIAL As Ordered ONE (11:32)
[2021-04-20] MEDS ORDERED: HYDROmorphone HCL 2 MG/ML 1ML VIAL As Ordered ONE (12:59)
[2021-04-20] MEDS: LABETALOL 100MG/20ML VIAL IV PRN ×4 (15:20→15:35)
[2021-04-20] MEDS ORDERED: fentaNYL 100 MCG/2 ML INJECTION (J3010) IV PRN (15:25)
[2021-04-20] MEDS ORDERED: ONDANSETRON 4MG/2ML VIAL IV PRN (15:25)
[2021-04-20] MEDS ORDERED: PERCOCET 5MG/325MG TAB PO PRN (15:25)
[2021-04-20] MEDS ORDERED: LR 1,000 ML IV SCH ×2 (15:25)
[2021-04-20] MEDS ORDERED: METOCLOPRAMIDE INJ 10MG/2ML VIAL (J2765 PER 1) IV PRN (15:25)
[2021-04-20] MEDS ORDERED: CAPTOpril 6.25 MG PER 1/2 TABLET PO ONE (16:00)
[2021-04-20] MEDS ORDERED: amLODIPine 5 MG TAB PO ONE (16:00)
--- NOTE | 2021-04-20 16:01 | HPEPDOC ---
General Date of Admission 04/20/21 Date of Service: Apr 20, 2021 Chief Complaint The patient is a 80-year-old female admitted with a reason for visit of Thyroid Goiter. Source: Patient History of Present Illness Patient is 80 years old female with past medical history of atrial fibrillation, IBS, goiter, diastolic CHF presented to hospital for elective thyroid lobectomy. The surgery was done today by Dr. Nick. When I saw the patient in PACU her blood pressure was elevated to 186/90. Patient denied fever, chills, chest pain, palpitations diarrhea or dysuria. ENT team recommended to admit patient for observation for 24 hours Home Medications Scheduled Cholecalciferol (Vitamin D3) (Vitamin D3) 1,000 Unit Tablet, 1,000 UNITS PO DAILY, (Reported) Cyanocobalamin (Vitamin B-12) (Vitamin B-12) 500 Mcg Tablet, 1,000 MCG PO DAILY, (Reported) Docusate Sodium (Stool Softener) 100 Mg Capsule, 100 MG PO QHS, (Reported) Furosemide (Furosemide) 20 Mg Tablet, 20 MG PO DAILY, (Reported) Metoprolol Tartrate (Metoprolol Tartrate) 25 Mg Tablet, 25 MG PO BID, (Reported) Omeprazole (Omeprazole) 40 Mg Capsule.dr, 40 MG PO DAILY, (Reported) Potassium Chloride (K-Tab ER) 10 Meq Tablet.er, 10 MEQ PO DAILY, (Reported) Rivaroxaban (Xarelto) 20 Mg Tablet, 20 MG PO DAILY, (Reported) Scheduled PRN Acetaminophen (Tylenol Arthritis) 650 Mg Tablet.er, 1,300 MG PO DAILY PRN for PAIN, (Reported) Carboxymethylcellulos/Glycerin (Refresh Optive Eye Drops) 15 Ml Drops, 1 DROP OU QID PRN for DRY EYES, (Reported) Allergies Coded Allergies: ENVIRONMENTAL (Verified Allergy, Unknown, 04/06/21) Past Medical History Medical History ALLERGIC RHINITIS CERVICAL SPONDYLOSIS ASTHMA IBS GERD OSTEO ARTHRITIS COLONOSCOPY 04-01-2012, 04/2015 , 01/2019, DR. HUANG MACULAR DEGENERATION, RIGHT EYE (DR. 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 ROBERTS CHF Surgical History RIGHT KNEE SURGERY MENISCUS, LEFT KNEE SURGERY, MENISCUS HYSTERECTOMY LAP ABD SURGERY LEFT CATARACT 04/27 TEETH EXTRACTION 04/27 LASER TX TO LEFT EYE TO REMOVE MEMBRANE 01/2015 COLONOSCOPY,ENDOSCOPY 01/28/19 [facility]EMAKER ([facility] 05/31/2020 Family History FATHER: , CHF, OA MOTHER: , OA, HTN Social History * Smoker: Denies Alcohol: Denies Drugs: denies A-FIB/CHADSVASC A-FIB History Current/History of A-Fib/PAF?: Yes Current PO Anticoag Therapy: Yes Review of Systems Constitutional: Denies: Chills, Fever Eyes: Denies: Pain ENT: Denies: Head Aches Skin: Denies: Rash Pulmonary: Denies: Dyspnea Cardiovascular: Denies: Chest Pain Gastrointestinal: Denies: Nausea, Vomiting Genitourinary: Denies: Dysuria Hematologic: Denies: Bruising Endocrine: Denies: Polydipsia Musculoskeletal: Reports: Neck Pain; Denies: Joint Pain Neurological: Denies: Weakness Psych: Reports: Mood Normal Physical Examination General Exam: Positive: Alert, Cooperative Eye Exam: Positive: PERRLA Neck Exam: Positive: Supple, thyromegaly (Status post lobular thyroidectomy); Negative: JVD Heart Exam: Positive: Irregular Rhythm Telemetry: Positive: Atrial fibrillation Abdomen Exam: Positive: Normal bowel sounds Extremity Exam: Negative: Clubbing Skin Exam: Positive: Nl turgor and temperature Neuro Exam: Positive: Strength at 5/5 X4 ext Psych Exam: Positive: Oriented x 3 Vital Signs Vital Signs Date Time Temp Pulse Resp B/P (MAP) Pulse Ox O2 Delivery O2 Flow Rate FiO2 04/20/21 10:12 186/85 (118) 04/20/21 09:10 97.6 61 20 96 Room Air Assessment/Plan Patient is 80 years old female with past medical history of atrial fibrillation, IBS, goiter, diastolic CHF presented to hospital for elective thyroid lobectomy. The surgery was done today by Dr. Nick. When I saw the patient in PACU her blood pressure was elevated to 186/90. Patient denied fever, chills, chest pain, palpitations diarrhea or dysuria. ENT team recommended to admit patient for observation for 24 hours Problems (1) S/P thyroidectomy Status: Acute Problem Text: Pain management Defer treatment to ENT team (2) CHF (congestive heart failure) Status: Chronic Problem Text: Not in acute exacerbation Cardiac diet (3) Atrial fibrillation Status: Chronic Problem Text: Oral targeted anticoagulation on hold Heart rate under control Continue beta-blockers (4) Hypertensive urgency Status: Acute Problem Text: Patient received labetalol IV in PACU Captopril 6.25 mg once Norvasc to 10 mg daily Continue to monitor vitals Plan / VTE VTE Prophylaxis Ordered?: No VTE Exclusion Pharmacological: Bleeding Risk JEANNE JARA DO Apr 20, 2021 16:01
[2021-04-20 16:30] VITALS: BP 153/77
[2021-04-20 17:04] VITALS: BP 151/77
[2021-04-20 18:09] VITALS: BP 145/71
[2021-04-20 18:58] VITALS: BP 142/77
[2021-04-20] MEDS: ACETAMINOPHEN TAB 650MG DOSE (2X325MG) PO PRN (21:54)
[2021-04-20] MEDS: METOPROLOL TART 25 MG TABLET PO SCH (21:54)
[2021-04-20] MEDS: dexameTHASONE 4 MG/ML 1ML VIAL (J1100 PER 1MG) IV SCH (21:57)
[2021-04-20 22:00] VITALS: BP 142/76
[2021-04-21 01:45] VITALS: O2SAT 94
[2021-04-21 02:00] VITALS: BP 135/64
[2021-04-21] MEDS: dexameTHASONE 4 MG/ML 1ML VIAL (J1100 PER 1MG) IV SCH ×2 (04:07→12:00)
[2021-04-21 06:00] VITALS: BP 159/77
[2021-04-21 07:13] LABS: HEMATOCRIT 38.4 % (36.0-47.0); HEMOGLOBIN 12.4 g/dl (12.0-15.5); MEAN CORPUSCULAR HEMOGLOBIN 30.1 pg (27.0-33.0); MEAN CORPUSCULAR HGB CONC 32.3 g/dl (32.0-36.5); MEAN CORPUSCULAR VOLUME 93.2 fl (80.0-96.0); PLATELET COUNT, AUTOMATED 173 10^3/uL (150-450); RED BLOOD COUNT 4.12 10^6/uL (4.00-5.40); WHITE BLOOD COUNT 7.1 10^3/uL (4.0-10.0)
[2021-04-21 07:45] LABS: ALBUMIN 3.1 GM/DL (3.2-5.2); ALT/SGPT 14 U/L (12-78); BILIRUBIN,TOTAL 0.5 MG/DL (0.2-1.0); BLOOD UREA NITROGEN 14 MG/DL (7-18); CALCIUM LEVEL 8.9 MG/DL (8.8-10.2); CARBON DIOXIDE LEVEL 27 MEQ/L (21-32); CHLORIDE LEVEL 109 MEQ/L (98-107); CREATININE FOR GFR 0.58 MG/DL (0.55-1.30); GLOMERULAR FILTRATION RATE > 60.0 (>32); GLUCOSE, FASTING 154 MG/DL (70-100); MAGNESIUM LEVEL 1.8 MG/DL (1.8-2.4); POTASSIUM SERUM 3.9 MEQ/L (3.5-5.1); SODIUM LEVEL 142 MEQ/L (136-145); TOTAL PROTEIN 6.6 GM/DL (6.4-8.2)
[2021-04-21] MEDS: ACETAMINOPHEN TAB 650MG DOSE (2X325MG) PO PRN (08:46)
[2021-04-21 08:48] VITALS: BP 159/77
[2021-04-21] MEDS: METOPROLOL TART 25 MG TABLET PO SCH (08:48)
[2021-04-21] MEDS ORDERED: OMEPRAZOLE 20 MG CAP PO SCH (09:00)
[2021-04-21] MEDS ORDERED: FUROSEMIDE 20 MG TAB PO SCH (09:00)
[2021-04-21] MEDS ORDERED: PERCOCET 5MG/325MG TAB PO PRN (10:00)
[2021-04-21] MEDS ORDERED: AUGM875T28 PO (11:05)
[2021-04-21] MEDS ORDERED: PERCOCET PO (11:05)
[2021-04-21] MEDS ORDERED: LISI10TA22 PO (11:05)
--- NOTE | 2021-04-21 11:38 | RO ---
OPERATIVE NOTE DATE OF OPERATION: 04/20/2021 PREOPERATIVE DIAGNOSIS: Left false cord mass lesion and thyroid goiter. POSTOPERATIVE DIAGNOSIS: Left false cord mass lesion and thyroid goiter. PROCEDURES PERFORMED: 1. Direct suspension microlaryngoscopy with biopsy of the left false cord. 2. Right hemithyroidectomy with intraoperative nerve monitoring. SURGEON: Leonel Nick MD. OFFICE SYSTEMS TECHNOLOGY INSTRUCTOR: Dr. Nilesh Mcneill and Suresh Rossi for the portion of the right thyroid lobectomy. ANESTHESIA: General anesthesia without paralytic. CLINICAL PREAMBLE: This 80-year-old woman presented to the office complaining of dysphagia. CT neck revealed a large goiter extending into the mediastinal region most prominently from the right thyroid lobe. Flexible laryngoscopy revealed mobile vocal cords. However, the lesion on the left false cord was noted. As such, management options including surgery listed above have been discussed with the patient in detail. She understood and consented to the procedure. OR NARRATION: Patient was identified in preop holding and brought to the operating room in stable condition. In the supine position on the operating table, patient received general anesthesia followed by orotracheal intubation with the NIM compatible endotracheal tube without incident. Patient was prepped and draped in the usual fashion for the direct laryngoscopy with biopsy. Palpation of the oral cavity, oral tongue, base of tongue, buccal lateral and posterior pharyngeal nixon showed no evidence of discreet mass lesion. The upper alveolus was protected using the wet sponge. The Dedo-Pilling laryngoscope was introduced into the oral cavity to allow visual inspection of the mucosa of the oral cavity, oropharynx, glottis, and hypopharynx. No mucosa lesion was noted in those areas. A lesion was noted over the anterior one-third of the left false cord. The Dedo-Pilling laryngoscope was suspended on the De Oliveira stand. The left false cord lesion was infiltrated with 1% lidocaine with 1:100,000 epinephrine. Using a curved biopsy forceps, tissue was obtained from the left anterior one-third of the left false cord. The true cords were free of mass lesion. The saccules appeared to be patent for both sides. Aryepiglottic folds were unremarkable. The piriform sinuses were also unremarkable. Hemostasis was achieved by placing cottonoid pledgets on the biopsy site. The Dedo-Pilling laryngoscope was then successfully withdrawn. This portion of the procedure was completed without complication. Attention was turned to performing the right thyroid lobectomy. The patient was repositioned in the usual fashion for the right thyroid lobectomy. The shoulder roll was placed, and the neck was appropriately supported with the gel head rest. Electrodes were attached to the shoulder as well as the forehead and then attached to the Nerveana intraoperative nerve monitoring. Electrolytes from the endotracheal tube were also successfully attached. Good electrical signals were obtained upon tapping of the larynx. At this time, incision was fashioned approximately 1 cm above the clavicle. After going through the subcutaneous tissue and platysmal muscle, the strap muscles were identified in the midline and retracted laterally. The right thyroid capsule was identified, and dissection was carefully carried out around the capsule of the right thyroid gland. Hemostasis was achieved by using bipolar electrocautery. The superior vascular pedicle was identified and ligated using the harmonic scalpel. The right thyroid lobe was then dissected out from the anterior surface of the trachea. The inferior aspect of the right thyroid lobe was dissected and lifted off the mediastinal area away from the aortic arch without disruption of the underlying vasculature. The inferior thyroid pedicle was identified and dissected. The vascular pedicles were then ligated using the 3-0 silk suture. The entire thyroid lobe was then successfully delivered en bloc upon the resection on the thyroid isthmus. The thyroid isthmus was then sutured to achieve hemostasis. The right recurrent laryngeal nerve was stimulated and found to be stimulatable at the end of the case. Electrical signal greater than 100 counts. The right thyroid wound bed was then inspected. Hemostasis was achieved using bipolar electrocautery. A piece of Surgicel was placed over the right recurrent laryngeal nerve where it enters into the larynx. The Taylor powder was applied. The #10 flat LISSETTE drain was inserted into the wound bed. The LISSETTE drain was secured using the 3-0 silk. The neck incision was then closed in two layers. The strap muscles were reapproximated using 3-0 Vicryl. The platysmal muscle layers were reapproximated using 3-0 Vicryl. The final skin closure was achieved using the 5-0 Monocryl done in subcuticular fashion. The Steri-Strips were then applied over the neck incision. At the end of the procedure, sponge and instrument counts were correct. No complications were encountered intraoperatively. Estimated blood loss was approximately 50 mL. General anesthesia was reversed, and the patient was successfully extubated in the operating room. Immediately upon extubation flexible laryngoscopy was carried out. Both vocal cords were visualized and found to be exhibiting mobile symmetrical motion. Patient was then successfully transferred to the recovery area without any evidence of respiratory distress. My transition assistant Dr. Nilesh Mcneill was present throughout the right thyroid lobectomy portion of the case. He assisted in providing appropriate and necessary retractions and soft tissue manipulation in order to perform the surgery safely. VISHAL
--- NOTE | 2021-04-21 17:01 | DS.PDOC ---
Discharge Summary General Date of Admission Apr 20, 2021 at 15:34 Date of Discharge 04/21/21 Discharge Summary PROCEDURES PERFORMED DURING STAY: [None]. ADMITTING DIAGNOSES: S/P thyroidectomy CHF (congestive heart failure) Atrial fibrillation Hypertensive urgency DISCHARGE DIAGNOSES: S/P thyroidectomy CHF (congestive heart failure) Atrial fibrillation Hypertensive urgency COMPLICATIONS/CHIEF COMPLAINT: Thyroid Goiter. HISTORY OF PRESENT ILLNESS: Patient is 80 years old female with past medical history of atrial fibrillation, IBS, goiter, diastolic CHF presented to hospital for elective thyroid lobectomy. The surgery was done today by Dr. Nick. When I saw the patient in PACU her blood pressure was elevated to 186/90. Patient denied fever, chills, chest pain, palpitations diarrhea or dysuria. ENT team recommended to admit patient for observation for 24 hours HOSPITAL COURSE: During the hospital stay following issue addressed (1) S/P thyroidectomy Patient received pain management and treatment per ENT team (2) CHF (congestive heart failure) Status: Chronic Problem Text: Not in acute exacerbation Cardiac diet (3) Atrial fibrillation Oral targeted anticoagulation on hold for 1 year Heart rate under control Continue beta-blockers (4) Hypertensive urgency Patient received labetalol IV in PACU Captopril 6.25 mg once Norvasc to 10 mg daily Blood pressure is stable today DISCHARGE MEDICATIONS: Please see below. ALLERGIES: Please see below. PHYSICAL EXAMINATION ON DISCHARGE: VITAL SIGNS: Please see below. General Exam: Positive: Alert, Cooperative Eye Exam: Positive: PERRLA Neck Exam: Positive: Supple, thyromegaly (Status post lobular thyroidectomy); Negative: JVD Heart Exam: Positive: Irregular Rhythm Telemetry: Positive: Atrial fibrillation Abdomen Exam: Positive: Normal bowel sounds Extremity Exam: Negative: Clubbing Skin Exam: Positive: Nl turgor and temperature Neuro Exam: Positive: Strength at 5/5 X4 ext Psych Exam: Positive: Oriented x 3 LABORATORY DATA: Please see below. PROGNOSIS: Fair ACTIVITY: [As tolerated]. DIET: Cardiac DISPOSITION: 01 Home, Self-Care. DISCHARGE INSTRUCTIONS: Do not take Xarelto for 1 week ITEMS TO FOLLOWUP ON ON OUTPATIENT: Follow-up with ENT in 1 week DISCHARGE CONDITION: [Stable]. TIME SPENT ON DISCHARGE: 20minutes. Vital Signs/I&Os Vital Signs Date Time Temp Pulse Resp B/P (MAP) Pulse Ox O2 Delivery O2 Flow Rate FiO2 04/21/21 11:34 18 Room Air 10/8/21 08:48 86 159/77 04/21/21 06:00 97.7 96 2.0 I&O- Last 24 Hours up to 6 AM 04/21/21 06:00 Intake Total 3900 ml Output Total 1255 ml Balance 2645 ml Laboratory Data Labs 24H Laboratory Tests 2 04/21/21 06:52: Nucleated Red Blood Cells % (auto) 0.0, Anion Gap 6L, Glomerular Filtration Rate > 60.0, Calcium Level 8.9, Magnesium Level 1.8, Total Bilirubin 0.5, Aspartate Amino Transf (AST/SGOT) 11, Alanine Aminotransferase (ALT/SGPT) 14, Alkaline Phosphatase 65, Total Protein 6.6, Albumin 3.1L, Albumin/Globulin Ratio 0.9L CBC/BMP Laboratory Tests 04/21/21 06:52 Discharge Medications Scheduled Amoxicillin/Potassium Clav (Augmentin 875-125 Tablet) 1 Each Tablet, 1 TAB PO BID Cholecalciferol (Vitamin D3) (Vitamin D3) 1,000 Unit Tablet, 1,000 UNITS PO DAILY, (Reported) Cyanocobalamin (Vitamin B-12) (Vitamin B-12) 500 Mcg Tablet, 1,000 MCG PO DAILY, (Reported) Docusate Sodium (Stool Softener) 100 Mg Capsule, 100 MG PO QHS, (Reported) Furosemide (Furosemide) 20 Mg Tablet, 20 MG PO DAILY, (Reported) Lisinopril (Lisinopril) 10 Mg Tablet, 10 MG PO DAILY Metoprolol Tartrate (Metoprolol Tartrate) 25 Mg Tablet, 25 MG PO BID, (Reported) Omeprazole (Omeprazole) 40 Mg Capsule.dr, 40 MG PO DAILY, (Reported) Potassium Chloride (K-Tab ER) 10 Meq Tablet.er, 10 MEQ PO DAILY, (Reported) Rivaroxaban (Xarelto) 20 Mg Tablet, 20 MG PO DAILY, (Reported) Scheduled PRN Acetaminophen (Tylenol Arthritis) 650 Mg Tablet.er, 1,300 MG PO DAILY PRN for PAIN, (Reported) Carboxymethylcellulos/Glycerin (Refresh Optive Eye Drops) 15 Ml Drops, 1 DROP OU QID PRN for DRY EYES, (Reported) Oxycodone/Acetaminophen (Oxycodone-Acetaminophen 5-325) 1 Each Tablet, 1 TAB PO Q6HP PRN for Pain >5 out of 10 Allergies Coded Allergies: ENVIRONMENTAL (Verified Allergy, Unknown, 04/06/21) JEANNE JARA DO Apr 21, 2021 17:01
== END 2021-04-21 14:00 | disposition home or self-care (01) ==
LOC: M SDC 09:09 → M MS5PR 15:34
PROVIDERS: ADMIT Internal Medicine; ATTEND Otolaryngology
DX: E04.2 Nontoxic multinodular goiter (principal); R22.1 Localized swelling, mass and lump, neck; I50.30 Unspecified diastolic (congestive) heart failure; I10 Essential (primary) hypertension; I48.91 Unspecified atrial fibrillation; I16.0 Hypertensive urgency; K21.9 Gastro-esophageal reflux disease without esophagitis; Z79.01 Long term (current) use of anticoagulants; Z95.0 Presence of cardiac pacemaker; J45.909 Unspecified asthma, uncomplicated; Z79.899 Other long term (current) drug therapy; K58.8 Other irritable bowel syndrome
CPT/HCPCS: 31536; 36415; 60220; 80053; 83735; 85027; 88305; 96360; 96361; G0378; J0330; J0697; J1100; J1170; J2405; J3010; Q9968

== ENCOUNTER 2021-05-08 12:48 | Inpatient (IN) | payer MEDICARE ==
[~2021-05-08] VITALS: Ht 165.1 cm; Wt 94.9 kg
[~2021-05-08 12:48] MED LIST changes: +AUGM875T28 PO; +LISI10TA22 PO; -LR 1,000 ML IV ONE; +PERCOCET PO; -dexameTHASONE 4 MG/ML 1ML VIAL (J1100 PER 1MG) IV ONE
--- OUTSIDE RECORDS SUMMARY | 2021-05-08 12:54 | CCD | Continuity of Care Document ---
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 AUTM [phone] Sdio AUTM [phone] Problems Active Problems Provider Date Essential hypertension Robert Finnegan M.D. Onset: 2 Gastroesophageal reflux disease Robert Finnegan M.D. Onset: 01/14/2012 Epigastric pain Robert Finnegan M.D. Onset: 02/22/2014 Social History Type Date Description Comments Sex Unknown ETOH Use Denies alcohol use Recreational Drug Use Denies Drug Use Tobacco Use Start: Unknown Patient has never smoked Smoking Status Reviewed: 12/19/20 Patient has never smoked Allergies and adverse reactions Active Allergies Criticality Reaction | Severity Comments Date Mobic Unable to assess criticality 05/02/2020 Inactive Allergies NKDA Unable to assess criticality 01/14/2012 Medications Active Medications SIG Qnty Indications Ordering Provide r Date Preservision Areds Tablets 1 by mouth every day Unknown Tylenol Arthritis Pain 650mg Table ts ER 2 by mouth every day as needed Unknown Vitamin B12 1000mcg Tablets ER 1 by mouth every day Unknown Xarelto 20mg Tablets 1 by mouth every day Unknown Omeprazole 40mg Capsules DR 1 tab by mouth every day Souleymane Ku M.D. Furosemide 20mg Tablets 1 tab by mouth every day Unknown Metoprolol Tartrate 25mg Tablets 1 tab by mouth twice a day Shade Hernandez F.N.P. 0 Potassium Chloride Enedelia ER 10Meq Tablets ER Take One Tablet By Mouth Every Day Unknow n Vitamin D3 1 cap by mouth every day Unknown Immunizations Description No Information Available Vital Signs Date Vital Result Comment 04/28/2021 9:16am Height 65 inches 5'5" Weight 208.00 lb BMI (Body Mass Index) 34.6 kg/m2 [place] Body Weight 125 lb Weight 94.349 kg BSA (Body Surface Area) 2.01 m2 01/30/2021 9:29am Height 65 inches 5'5" Weight 215.00 lb BMI (Body Mass Index) 35.8 kg/m2 [place] Body Weight 125 lb Weight 97.524 kg BSA (Body Surface Area) 2.04 m2 Results Test Acquired Date Facility Test Result H/L Range Note Surgical Pathology Consult 04/26/2021 [facility] Surgical Pathology Consult Surgical Patholo <SEE NOTE> 1 Laboratory test finding 01/09/2021 [facility] [address] [place] [address] [phone] Non Children Counselor/Cytology Req For Servi (SEE NOTE) 2 Laboratory test finding 01/09/2021 [facility] [address] [place] [phone] Non Children Counselor/Cytology Req For Servi (SEE NOTE) 3 Laboratory test finding 01/09/2021 [facility] [address] [place] [address] [phone] Non Children Counselor/Cytology Req For Servi (SEE NOTE) 4 FT4&TSH Panel 12/30/2020 [facility] Lab [address] [place] [phone] Thyroid Stimulating Hormone 0.295 uIU/ML Low 0. 358-3.740 Free T4 0.79 ng/dL Normal 0.76-1.46 Laboratory test finding 12/30/2020 [facility] [address] [place] [phone] Free T3 3.1 pg/mL Normal 2.2-4.0 Ionized Calcium 4.8 mg/dL Normal 4.5-5.3 Thyroglob QNT Incl Thyrogl Julianne 12/30/2020 [facility] Lab [address] [place], [place] [phone] Thyroglobulin Quantitative 1417.7 ng/mL High 1.5 -38.5 5 Thryoglobulin Antibodies (Rios) < 1.0 IU/mL Normal 0.0-0.9 6 Laboratory test finding 12/30/2020 [facility] [address] [place] [address] [phone] PTH Intact 70.0 pg/mL Normal 18.5-88.0 FVL/[place] 11/15/2020 [employer] [facility] SEE IMAGE FVC-Pred 2.65 L FVC-Pre 1.45 L FVC-%Pred-Pre 54 L FVC-LLN 1.93 L Fev1-Pred 1.97 L Fev1-Pre 1.26 L Fev1-%Pred-Pre 64 L Fev1-LLN 1.36 L Fev6-Pred 2.50 L Fev6-Pre 1.45 L Fev6-%Pred-Pre 58 L Fev6-LLN 1.80 L Fpx2aps-Wted 73 % Ppi0yyp-Tup 87 % Lmv6phq-%Pred-Pre 118 % Xvo0gfr-JHJ 64 % Ohw2cyc-Pwkj 94 % Qhs1jbx-Vnt 100 % Vbs0vyf-%Pred-Pre 105 % FEFMax-Pred 4.75 L/E/sec FEFMax-Pre 5.30 L/E/sec FEFMax-%Pred-Pre 111 L/E/sec FEFMax-LLN 2.98 L/E/sec Enf4007-Hmze 1.36 L/E/sec Xhi2895-Otk 1.69 L/E/sec Pvl6714-%Pred-Pre 123 L/E/sec Buz4191-ATS 0.08 L/E/sec ExpTime-Pre 5.89 sec Myq0wiz0-Fili 77 % Egm9vbl1-Tes 87 % Qej0uyv6-%Pred-Pre 112 % Gam1ysd9-BOR 68 % 1 Surgical Pathology Report Name: BERNY LISA Collection Date: 04/26/2021 00:00 Received Date: 04/26/2021 14:20 Physician(s): LEONEL NICK MD ADJAPONG, OPOKU, MD Specimen(s) Received A: Material received for consultation, GD, [id number], [facility] Clinical History 80-year-old woman with thyroid goiter an d left false vocal cord lesion. Diagnostic consultation. Diagnosis LARYNX, LEFT FALSE VOCAL CORD, BIOPSY ([id number], 04/20/21): SEVERE SQUAMOUS DYSPLASIA. (SEE MICROSCOPIC DESCRIPTION). 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 (SEE SYNOPTIC REPORT) Synoptic Report: Specimen Procedure: Right lobectomy Tumor Tumor Focality: Unifocal Tumor Characteristics Tumor Site: Right lobe Histologic Type: Papillary carcinoma, follicular variant, encapsulated / well demarcated, non-invasive Histologic Type Comments: The tumor is a well-circumscribed, unencapsulated follicular neoplasm with a microfollicular pattern and diffuse nuclear features of papillary carcinoma. There is also a 3.0 mm focus of a nearly-solid component with marked nuclear atypia, loss of characteristic nuclear features of PTC, diffuse apoptosis, up to 4 mitoses per 10 HPF and rare atypical mitotic figures. Tumor Size: Cannot be determined - unclear in outside gross description. Extrathyroidal Extension: Not identified Angioinvasion (vascular invasion): Not identified Lymphatic Invasion: Not identified Margins: Uninvolved by carcinoma Lymph Nodes Regional Lymph Nodes: No lymph nodes submitted or found Pathologic Stage Classification (pTNM, AJCC 8th Edition) Primary Tumor (pT): pTX Regional Lymph Nodes (pN): pNX Additional Findings Additional Findings: Adenomatoid nodule(s) or nodular follicular disease CAP eCC August 2019 Annual Release Electronically Signed By Rios Riley M.D., Attending Pathologist 04/27/2021 15:29:28 Gross Description Received from [facility] in [place], [place] are 7 H and E stained slides and 6 paraffin blocks, labeled [id number] (A, B1, B2, B3, B4, B5), with the corresponding pathology report. Microscopic Description I have reviewed the slides from a left vocal cord lesion and a right thyroid lobectomy on the above captioned patient. The vocal cord biopsy consist of fragments of respiratory mucosa with with focal severe squamous dysplasia. This is associated with moderate chronic inflammation, oncocytic metaplasia and focal marked dilatation of submucosal glands. The thyroid lobectomy specimen shows an unencapsulated well-circumscribed nodule with a microfollicular pattern and diffuse nuclear features of papillary carcinoma. The latter are seen throughout the nodule and consists of nuclear enlargement, overlapping, clearing, grooving and rare intranuclear inclusions. There is no evidence of papillae, invasion into the surrounding stroma, or vascular invasion. There is, however, a 3.0 mm. nearly solid component with marked nuclear atypia (loss of PTC features), extensive apoptosis, up to 4 mitotic figures in 10 HPF and a few atypical mitoses (slide B5). I cannot determine the size of the tumor based on the gross description or microscopic sections. The parenchyma outside of nodule shows evidence of nodular hyperplasia. 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 While the solid component represent less than 5% of the tumor, a mitotic count of more than 3 mitoses per 10 HPF should exclude the diagnosis of NIFTP. I believe this tumor should be regarded and managed as an encapsulated/well-circumscribed follicular variant of papillary carcinoma. Thank you for letting me see this case in consultation. This report may include one or more immunohistochemical stain results that use analyte specific reagents. All positive and negative controls have been reviewed by the attending pathologist and are satisfactory. The tests were developed and their performance characteristics determined by [facility] Pathology department. They have not been cleared or approved by the US Food and Drug Administration. The FDA has determined that such clearance or approval is not necessary. 2 SPECIMEN: FNA Lef t lower isthmus/labeled left thyroid SPECIMEN ADEQUACY: Satisfactory for evaluation CATEGORIZATION: Benign DESCRIPTIONS: Scattered follicular cells noted in a background of hemosiderin laden macrophages, and scattered lymphocytes. COMMENTS: 01/10/2021942 Signed BRADLEY CRISTINA CT(ASCP) 01/10/2021 0943 (Prelim) Signed KINGA DAVIS MD 01/10/2021 1356 3 SPECIMEN: FNA Rig ht middle isthmus/labeled right thyroid Specimen receiced in Cytolyt (light pink)/AFIRMA SPECIMEN ADEQUACY: Satisfactory for evaluation CATEGORIZATION: Benign DESCRIPTIONS: Rare follicualr groups noted in a background of hemosiderin laden macrophages and scattered lymphocytes. COMMENTS: 01/10/2021 - 39 Signed BRADLEY CRISTINA(ASCP) 01/10/2021 0936 (Prelim) Signed KINGA DAVIS MD 01/10/2021 1356 4 SPECIMEN: FNA Rig ht middle isthmus/labeled right thyroid Cyotlyt (light pink) and AFIRMA brush received SPECIMEN ADEQUACY: Satisfactory for evaluation CATEGORIZATION: Benign DESCRIPTIONS: Reactive follicular cells noted in a backgound of scattered lymphocytes. COMMENTS: 01/10/2021 - 47 Signed BRADLEY CRISTINA(ASCP) 01/10/2021 0948 (Prelim) Signed KINGA DAVIS MD 01/10/2021 1356 5 Specimen was diluted in orde r to obtain results. Results were repeated. . According to the National Academy of Clinical Biochemistry, the reference interval for Thyroglobulin (TG) should be related to euthyroid patients and not for patients who underwent thyroidectomy. TG reference intervals for these patients depend on the residual mass of the thyroid tissue left after surgery. Establishing a post-operative baseline is recommended. The assay limit of quantitation is 0.1 ng/mL . Thyroglobulin measured by Dashawn Heber Immunometric Assay Performed at: RN - [facility] [address] [id number] [employer] Instructor: Ariana Hutchison MD, Phone: [phone] Thyroglobulin Antibody measu red by Dashawn Mac Methodology Procedures Date Code Description Status 01/30/2021 89417 Office/Outpatient Established Mo d MDM 30-39 Min Completed 01/30/2021 77875 Laryngoscopy Flexible Fiberoptic Diagnostic Completed 12/23/2020 37309 Office/Outpatient Established Lo w MDM 20-29 Min Completed 12/19/2020 77136 Office/Outpatient Established Mo d MDM 30-39 Min Completed 12/09/2020 74892 Diffusing Capacity Completed 12/09/2020 32249 Plethysmography Determination Nery ng Volumes & Per Airway Resist Completed 12/09/2020 62898 Bronchospasm Evaluation Complete d 11/15/2020 10720 Office/Outpatient Established Mo d MDM 30-39 Min Completed 11/15/2020 65140 Spirometry Completed Medical Devices Description No Information Available Encounters Type Date Location Provider Dx Diagnosis Office Visit 01/30/2021 9:30a [facility] Leonel Nick MD E04.2 Nontoxic multinodular goiter R06.00 Dyspnea, unspecified 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 R06.00 Dyspnea, unspecified R05 Cough G47.33 Obstructive sleep apnea (osiel lt) (pediatric) Office Visit 11/15/2020 1:15p [facility] Shawn Garcia, N.P. G47.33 Obstructive sleep apnea (adult) (pediatr ic) R06.00 Dyspnea, unspecified R05 Cough Assessments Date Code Description Provider 04/28/2021 C73 Malignant neoplasm of thyroid gl and Leonel Nick MD 04/28/2021 D38.0 Neoplasm of uncertain behavior o f larynx Leonel Nick MD 01/30/2021 E04.2 Nontoxic multinodular goiter Elvin Nick MD 01/30/2021 R06.00 Dyspnea, unspecified Leonel Nick MD 01/30/2021 D38.0 Neoplasm of uncertain behavior o f larynx Leonel Nick MD 12/23/2020 E04.2 Nontoxic multinodular goiter Elvin Nick MD 12/19/2020 R06.00 Dyspnea, unspecified Indira Garcia ea, N.P. 12/19/2020 R05 Cough Kerrie Garcia N .P. 12/19/2020 G47.33 Obstructive sleep apnea (adult) (pediatric) Kerrie Garcia, N.P. 12/09/2020 R06.00 Dyspnea, unspecified Pulmonary L ab 12/09/2020 R05 Cough Pulmonary Lab 11/15/2020 G47.33 Obstructive sleep apnea (adult) (pediatric) Kerrie Garcia, N.P. 11/15/2020 R06.00 Dyspnea, unspecified Indira Garcia ea N.P. 11/15/2020 R05 Cough Kerrie Garcia N .PNathaniel Plan of Treatment No Information Available Functional Status Functional Condition Comment Date Status Independent with all ADL's Activ e Independent with all IADL's Acti ve Mental Status Mental Condition Comment Date Status Cognitive ability not impaired A ctive Referrals Refer to Dr Reason for Referral Status Appt Date Kerrie Garcia, F.N.P. DYSPNEA Scheduled 11/15/2020 [facility] [address] [place], [place] [id number] [phone]
--- OUTSIDE RECORDS SUMMARY | 2021-05-08 12:54 | CCD ---
Author Author [facility] Organization [facility] Address Unknown Phone Unavailable Care Team Providers Care Market Sales Manager Name Role Phone Souleymane Cox Unavailable PROBLEMS Type Condition ICD9-CM Code [id number] Code Onset Dates Condition S tatus W/U Status Risk SNOMED Code Notes Problem Orthostatic hypotension I95.1 Active confirmed 28912740 Problem History of DVT in adulthood Z86.718 Active confirme d 190719616 Problem Degenerative disc disease, cervical M50.30 Acti ve confirmed 65619198 Problem Carpal tunnel syndrome of right wrist G56.01 Ac tive confirmed 68212729 Problem Myofascial pain M79.1 Active confirmed 9990 67653 Problem Encounter for immunization Z23 Active confirmed 005730266 Problem Paroxysmal atrial fibrillation I48.0 Active confir med 605571353 Problem 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 Active confirmed 142987541 Problem Impairment of balance R26.89 Active confirmed 135789719 Problem B12 deficiency E53.8 Active confirmed 30758 4004 Problem History of thrombophlebitis Z86.72 Active confirmed 592231583 Problem Maxillary sinusitis J32.0 Active confirmed 49049539 Problem Stasis dermatitis of right l ower extremity due to peripheral venous hypertension I83.11 Active confirmed 770832733 Problem Multinodular goiter E04.2 Active confirmed 986961435 Problem Arteriosclerosis I70.90 Active confirmed 720 69859 Problem 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 A ctive confirmed 74229176 Problem Carpal tunnel syndrome G56.00 Active confirmed 46421161 Problem Carpal tunnel syndrome, right G56.01 Active co nfirmed 559025795862739 Problem Asthma, intermittent J45.20 Active confirmed 999385337 Problem Bony exostosis M89.8X9 Active confirmed 4161 08021 Problem Vitamin B12 deficiency E53.8 Active confirmed 486725579 Problem 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 Active confirmed 114940095 Problem Encounter for general adult medical exam ination with abnormal findings Z00.01 Active confirmed 699971147 Problem Chronic fatigue R53.82 Active confirmed 5270 2003 Problem Essential hypertension I10 Active confirmed 44979206 Problem Ingrown nail L60.0 Active confirmed 6729211 05 Problem GERD (gastroesophageal reflux disease) K21.9 A ctive confirmed 939397004 Problem Hypertensive heart disease with heart failure I11. 0 Active confirmed 1206625 Problem Chronic diastolic heart failure I50.32 Active confi rmed 221832591 Problem Multinodular goiter (nontoxic) E04.2 Active confir med 25887959 Problem Chronic dyspnea R06.09 Active confirmed 8705 04202 Problem Primary osteoarthritis involving multiple joints M 15.0 Active confirmed 739376093 Problem Chronic constipation K59.00 Active confirmed 055954773 Problem S/P cardiac pacemaker procedure Z95.0 Active confi rmed 839023753 Problem Palpitations R00.2 Active confirmed 2512281 2 Problem Diverticulosis K57.90 Active confirmed 11188 1000 Problem Dizziness and giddiness R42 Active confirmed 645600876 Problem Pure hypercholesterolemia E78.0 Active confirmed 344897119 Problem Paroxysmal atrial flutter I48.92 Active confirmed 086507618 Problem Tachy-julio cesar syndrome I49.5 Active confirmed 29581045 Problem Perirectal burning K62.89 Active confirmed 9 4566861 Problem Hyperthyroidism E05.90 Active confirmed 3448 6009 Problem Hypertensive heart disease without heart failure I 11.9 Active confirmed 19235740 ALLERGIES Allergen (clinical drug ingredient) Drug/Non Drug Allergy do cumented on EMR Reaction Allergy Type Onset Date Status meloxicam Mobic([facility] Code:[address]-61) Bp elevated Drug Allergy Active ENCOUNTERS from 1940 to 2021-03-28 Encounter Location Date Provider Diagnosis [facility] Deepak NUNEZ ZACHERY [phone] [place] [address] 14 Mar, 2021 Souleymane Cox IMMUNIZATIONS Vaccine Route Administration Date Status Vitamin B-12 1000mcg/1mL Cyanocobalamin IM Intramuscular December Administered Influenza (High Dose 65 & up) IM Intramuscular May 01, 2017 A dministered Influenza (High Dose 65 & up) IM Intramuscular Apr 19, 2016 A dministered Pneumococcal Adult 0.5mL Pneumovax 23 Unknown Feb 17 07 Administered Pneumococcal 0.5mL Prevnar 13 IM Intramuscular Jun 15, 2015 A dministered SOCIAL HISTORY Tobacco Use: Social History Observation Description Date Details (start date - stop date) Never Smoker Sex Assigned At : Social History Observation Description Sex Assigned At Unknown Education: Question Answer Notes Level of Education: Finished College Audit Question Answer Notes Total Score: 0 Interpretation: Alcohol Education Sexual Hx: Question Answer Notes Had sex in the last 12 months (vaginal, oral, or anal)? No Have you ever had an STD? No Drug and Alcohol Question Answer Notes Total Score: 0 Interpretation: No problems reported Alcohol Screening: Question Answer Notes Did you have a drink containing alcohol in the past year? No Points 0 Interpretation Negative BMI Care Goal Follow-Up Question Answer Notes Above Normal BMI Follow-Up Dietary management educatio n, guidance, and counseling Tobacco Use: Question Answer Notes Are you a: never smoker never smoker/updated 02/09/2021 REASON FOR REFERRAL No Information VITAL SIGNS No information MEDICATIONS Medication SIG (Take, Route, Frequency, Duration) Notes Start Da te End Date Status Potassium Chloride 10 MEQ 1 capsule with food Orally Once a day for 90 day(s) Active Diflucan 150 MG 1 tablet Orally qday, repeat one in 3 days for 2 days Oct, Not-Taking Xarelto 20 MG 1 tablet with food Orally Once a day Active Metoprolol Tartrate 25 mg 1 tab Orally bid Active Amoxicillin 875 MG 1 tablet Orally Twice a day for 10 day(s) Oct, Not-Taking Refresh 1.4-0.6 % 1 drop into affected eye as needed Ophthalmic 24 time(s) a day Active Vitamin B12 500 MCG 2 tablets Orally Once a day Active Omeprazole 40 MG 1 capsule 30 minutes before morning meal Orally bid Sep, Active Ventolin HFA 108 (90 Base) MCG/ACT 2 puffs as needed Inhalation every 6 hrs Jul, Active Lasix 20 MG 1 tablet Orally Once a day for 90 day(s) Active Acetaminophen 650 MG 2 tablets as needed Orally every 12 hours Active PROCEDURES No Information RESULTS No Results REASON FOR VISIT stop blood thinner MEDICAL (GENERAL) HISTORY Type Description Date Medical History Allergic rhinitis Medical History Cervical spondylosis Medical History Asthma Medical History IBS Medical History Gerd Medical History Osteo arthritis Medical History Colonoscopy 04-01-2012, 05/03 15 , 01/2019, Dr. Gilmore Medical History Macular degeneration, right eye (Dr. Polo) Medical History Rectal fissure Medical History Spirometry 06/23/2014 Medical History 03/29/2015 DEclines flu shot Medical History Allergic rhinitis, cause unspecified Medical History Cervical spondylosis with myelopathy Medical History Plantar fascial fibromatosis Medical History Unspecified essential hypertension Medical History Unspecified myalgia and myositis Medical History Carpal tunnel syndrome Medical History Macular degeneration Medical History Actinic keratosis Medical History MRSA (methicillin resistant staph aureus ) culture positive Medical History DVT right leg, 1967 while Medical History Hemorrhage Medical History Brain hemorrhage-Dr Salter/Dr Woo Medical History Cerebellar cavernous angioma (cavernoma) Medical History Atrial Fibrillation: Dr. Roberson Medical History CHF Surgical History Right knee surgery meniscus, Surgical History Left knee surgery, meniscus Surgical History Hysterectomy Surgical History Lap abd surgery Surgical History Left cataract 04/27 Surgical History Teeth extraction 04/27 Surgical History Laser tx to left eye to remove membrane 01/2015 Surgical History Colonoscopy,endoscopy 01/28/19 Surgical History Pacemaker ([facility]) 05/31/2020 Hospitalization History Surgery Hospitalization History [facility] - [facility] 2018 Goals Section No Information Health Concerns No Information MEDICAL EQUIPMENT No Information MENTAL STATUS No Information FUNCTIONAL STATUS No Information ASSESSMENTS No Information PLAN OF TREATMENT Medication Medication Name Sig Start Date Stop Date Potassium Chloride 10 MEQ 1 capsule with food Orally Once a day for 90 day(s) Ventolin HFA 108 (90 Base) MCG/ACT 2 puffs as needed Inhalat ion every 6 hrs Jul, Lasix 20 MG 1 tablet Orally Once a day for 90 day(s) Omeprazole 40 MG 1 capsule 30 minutes before morning meal Orally bid Sep, Xarelto 20 MG 1 tablet with food Orally Once a day Acetaminophen 650 MG 2 tablets as needed Orally every 12 hours Refresh 1.4-0.6 % 1 drop into affected eye as needed Ophthalmic 24 time(s) a day Metoprolol Tartrate 25 mg 1 tab Orally bid Vitamin B12 500 MCG 2 tablets Orally Once a day Next Appt Details Provider Name:Souleymane Cox, 2021-04-18 10 :00:00 AM, [address], , [place], [address], Provider Name:Vicki Galicia, 11:30:00 AM, [address] [place] [address], , [place], [address], Provider Name:Souleymane Cox, 2021-06-13 11 :00:00 AM, [address] , , [place], [address], Insurance Providers Payer Name Payer Address Payer Phone Insured Name Patient Relati onship to Insured Coverage Start Date Coverage End Date [employer] [facility] CLAIM DIV [address] [facility] [phone] BERNY LISA MEDICARE Part A and B [address] [facility] [phone] [phone] BERNY LISA self
--- OUTSIDE RECORDS SUMMARY | 2021-05-08 12:54 | CCD | Continuity of Care Document ---
Author Author Donna NICK MD Organization Unknown Address [address] [address] Phone [phone] Care Team Providers Care Vendor Management Consultant Name Role Phone Souleymane Cox M.D. AUTM [phone] AUTM Unavailable Karen So AUTM AUTM Unavailable Pro Roberson M.D. AUTM [phone] Problems Active Problems Provider Date Essential hypertension Robert Finnegan M.D. Onset: 2 Gastroesophageal reflux disease Robert Finnegan M.D. Onset: 01/14/2012 Epigastric pain Robert Finnegan M.D. Onset: 02/22/2014 Social History Type Date Description Comments Sex Unknown ETOH Use Denies alcohol use Recreational Drug Use Denies Drug Use Tobacco Use Start: Unknown Patient has never smoked Smoking Status Reviewed: 12/19/20 Patient has never smoked Allergies, Adverse Reactions, Alerts Active Allergies Criticality Reaction | Severity Comments [...] DR 1 tab by mouth every day 90caps Souleymane Cox M.D. Furosemide 20mg Tablets 1 tab by mouth every day Unknown Metoprolol Tartrate 25mg Tablets 1 tab by mouth twice a day Shade Hernandez F.N.P. 0 Potassium Chloride Enedelia ER 10Meq Tablets ER Take One Tablet By Mouth Every Day Unknow n Vitamin D3 1 cap by mouth every day Unknown Immunizations Description No Information Available Vital Signs Date Vital Result Comment 01/30/2021 9:29am Height 65 inches 5'5" Weight 215.00 lb BMI (Body Mass Index) 35.8 kg/m2 [place] Body Weight 125 lb Weight 97.524 kg BSA (Body Surface Area) 2.04 m2 12/23/2020 1:51pm Height 65 inches 5'5" Weight 216.00 lb BMI (Body Mass Index) 35.9 kg/m2 [place] Body Weight 125 lb Weight 97.978 kg BSA (Body Surface Area) 2.04 m2 Results Test Acquired Date Facility Test Result H/L Range Note Laboratory test finding 01/09/2021 [facility] [address] [place] [address]377 [phone] Non Electrode Cleaner/Cytology Req For Servi (SEE NOTE) 1 Laboratory test finding 01/09/2021 [facility] [address] [place] [address] [phone] Non Electrode Cleaner/Cytology Req For Servi (SEE NOTE) 2 Laboratory test finding 01/09/2021 [facility] [address] [place] [address] [id number] [phone] Non Electrode Cleaner/Cytology Req For Servi (SEE NOTE) 3 FT4&TSH Panel 12/30/2020 [facility] Main Lab [address] [place] [address] 70708 [phone] Thyroid Stimulating Hormone 0.295 uIU/ML Low 0. 358-3.740 Free T4 0.79 ng/dL Normal 0.76-1.46 Laboratory test finding 12/30/2020 [facility] [address] [place] [address] 28626 [phone] Free T3 3.1 pg/mL Normal 2.2-4.0 Ionized Calcium 4.8 mg/dL Normal 4.5-5.3 Thyroglob QNT Incl Thyrogl Julianne 12/30/2020 [facility] Main Lab [address] [place] [address] [id number] [phone] Thyroglobulin Quantitative 1417.7 ng/mL High 1.5 -38.5 4 Thryoglobulin Antibodies (Rios) < 1.0 IU/mL Normal 0.0-0.9 5 Laboratory test finding 12/30/2020 [facility] [address] [place] [address]011 [phone] PTH Intact 70.0 pg/mL Normal 18.5-88.0 FVL/Perris 11/15/2020 [employer] PDFReport SEE IMAGE FVC-Pred 2.65 L FVC-Pre 1.45 L FVC-%Pred-Pre 54 L FVC-LLN 1.93 L Fev1-Pred 1.97 L Fev1-Pre 1.26 L Fev1-%Pred-Pre 64 L Fev1-LLN 1.36 L Fev6-Pred 2.50 L Fev6-Pre 1.45 L Fev6-%Pred-Pre 58 L Fev6-LLN 1.80 L Wjk0phs-Sgvq 73 % Ckl5alp-Gij 87 % Xpa9fyk-%Pred-Pre 118 % Asl1xtz-QLI 64 % Gru9gtx-Oryj 94 % Mrd6qog-Yox 100 % Bbx4weo-%Pred-Pre 105 % FEFMax-Pred 4.75 L/E/sec FEFMax-Pre 5.30 L/E/sec FEFMax-%Pred-Pre 111 L/E/sec FEFMax-LLN 2.98 L/E/sec Dxd0391-Ijzi 1.36 L/E/sec Qrl7659-Uul 1.69 L/E/sec Ucn8280-%Pred-Pre 123 L/E/sec Yqb5393-HKG 0.08 L/E/sec ExpTime-Pre 5.89 sec Tid5nik7-Plrm 77 % Mym0zgc1-Iss 87 % Mlr1vxs4-%Pred-Pre 112 % Mih5rnn9-KRL 68 % 1 SPECIMEN: FNA Lef t lower isthmus/labeled left thyroid SPECIMEN ADEQUACY: Satisfactory for evaluation CATEGORIZATION: Benign DESCRIPTIONS: Scattered follicular cells noted in a background of hemosiderin laden macrophages, and scattered lymphocytes. COMMENTS: 01/10/2021942 Signed BRADLEY CRISTINA(ASCP) 01/10/2021 0943 (Prelim) Signed KINGA DAVIS MD 01/10/2021 1356 2 SPECIMEN: FNA Rig ht middle isthmus/labeled right thyroid Specimen receiced in Cytolyt (light pink)/AFIRMA SPECIMEN ADEQUACY: Satisfactory for evaluation CATEGORIZATION: Benign DESCRIPTIONS: Rare follicualr groups noted in a background of hemosiderin laden macrophages and scattered lymphocytes. COMMENTS: 01/10/2021 - 938 Signed BRADLEY CRISTINA(ASCP) 01/10/2021 0936 (Prelim) Signed KINGA DAVIS MD 01/10/2021 1356 3 SPECIMEN: FNA Rig ht middle isthmus/labeled right thyroid Cyotlyt (light pink) and AFIRMA brush received SPECIMEN ADEQUACY: Satisfactory for evaluation CATEGORIZATION: Benign DESCRIPTIONS: Reactive follicular cells noted in a backgound of scattered lymphocytes. COMMENTS: 01/10/2021 - 946 Signed BRADLEY CRISTINA(ASCP) 01/10/2021 0948 (Prelim) Signed KINGA DAVIS MD 01/10/2021 1356 4 Specimen was diluted in orde r to [...] 0.1 ng/mL . Thyroglobulin measured by Dashawn Rainbow Immunometric Assay Performed at: - [facility] [address] [id number] Infrastructure Architect: Ariana Hutchison MD, Phone: [phone] Thyroglobulin Antibody measu red by Dashawn Mac Methodology Procedures Date Code Description Status 01/30/2021 94034 Office/Outpatient Established Mo d MDM 30-39 Min Completed 01/30/2021 07294 Laryngoscopy Flexible Fiberoptic Diagnostic Completed 12/23/2020 71866 Office/Outpatient Established Lo w MDM 20-29 Min Completed 12/19/2020 95669 Office/Outpatient Established Mo d MDM 30-39 Min Completed 12/09/2020 03512 Diffusing Capacity Completed 12/09/2020 09064 Plethysmography Determination Nery ng Volumes & Per Airway Resist Completed 12/09/2020 03827 Bronchospasm Evaluation Complete d 11/15/2020 17266 Office/Outpatient Established Mo d MDM 30-39 Min Completed 11/15/2020 75866 Spirometry Completed Medical Devices Description No Information Available Encounters Type Date Location Provider Dx Diagnosis Office Visit 01/30/2021 9:30a [facility] Leonel Nick MD E04.2 Nontoxic multinodular goiter R06.00 Dyspnea, unspecified 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 R06.00 Dyspnea, unspecified R05 Cough G47.33 Obstructive sleep apnea (osiel lt) (pediatric) Office Visit 11/15/2020 1:15p [facility] Shawn Garcia, N.P. G47.33 Obstructive sleep apnea (adult) (pediatr ic) R06.00 Dyspnea, unspecified R05 Cough Assessments Date Code Description Provider 01/30/2021 E04.2 Nontoxic multinodular goiter Elvin Nick [...] Garcia ea N.P. 11/15/2020 R05 Cough Kerrie Garcia, N .P. Plan of Treatment Future Appointment(s):* 04/20/2021 6:00 am - Nilesh Mcneill MD at [facility] * 04/20/2021 6:00 am - Suresh Rossi II, PA-C at [facility] * 04/20/2021 6:00 am - Leonel Nick MD at [facility] 01/30/2021 - Leonel Nick MD* E04.2 Nontoxic multinodular goiter* Comments:* Patient has a large right thyroid goiter which is causing obstructive symptoms. FNA is benign. Management options include right hemithyroidectomy, and intra-op laryngeal nerve monitoring have been discussed. Risks of surgery include bleeding, infection, injury to recurrent laryngeal nerve leading to hoarseness or permanent tracheostomy, transient or permanent hypocalcemia, keloid neck scar, and need for more surgery. The patient understands and wishes to discuss the surgery. 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 DYSPNEA Scheduled 11/15/2020 [facility] [address] [place], [place] [id number] [phone]
--- OUTSIDE RECORDS SUMMARY | 2021-05-08 12:54 | CCD | Continuity of Care Document ---
Author Author Donna REILLY DPM Organization Unknown Address [address] [place] [address] [address] [place] [address] Phone [phone] Care Team Providers Care Poultry Offal Worker Name Role Phone Souleymane Cox M.D. [phone] Problems Active Problems Provider Date Ingrowing nail Jose Reilly DPM Onset: 11/06/2017 Corns and callosities Jose Reilly DPM Onset: 11/06/2017 Onychomycosis Jose Reilly DPM Onset: 01/01/2020 Pain in limb Jose Reilly DPM Onset: 08/09/2020 Social History Type Date Description Comments Sex Unknown ETOH Use Denies alcohol use Tobacco Use Start: Unknown Patient has never smoked Allergies and adverse reactions Description No Known Drug Allergies Medications Active Medications SIG Qnty Indications Ordering Provide r Date Dzqqkmzi-Nrltxitmc-EC 1% Solution apply one drop to base of nail after betadine soaks as directed 10units Jose Reilly DPM 03/30/2021 Aspercreme W/Lidocaine 4% Cream apply to foot 2-3 times daily as needed 1units Jose Reilly DPM 12/23/2020 Prednisone 20mg Tablets Huizenga DOBe Amoxicillin 875mg Tablets Martinizenga , Be Alprazolam 0.5mg Tablets Kenny Cruz,Souleymane Ventolin HFA 108(90Base) mcg/Act A erosol Kenny Cruz,Souleymane Amoxicillin 500mg Capsules Nathalia Villalpando Sucralfate 1gm Tablets Deirdre Cruz,Ash Loratadine 10mg Tablets Take One Tablet By Mouth Every Day Unknown Fluticasone Propionate 50mcg/Act Suspension [facility] [place] Suprep Bowel Prep Kit 17.5-3.13-1.6GM/177ML Solution Deirdre Cruz,[place] Amoxicillin 500mg Tablets [facility] [place] Fluconazole 150mg Tablets [facility] [place] Amlodipine Besylate 2.5mg Tablets Take One Tablet By Mouth Every Day Unknown Furosemide 20mg Tablets Take One Tablet By Mouth Every Day Unknown Potassium Chloride Enedelia ER 10Meq Tablets ER Anjum Cruz,[place] Metoprolol Tartrate 50mg Tablets Anjum Cruz,[place] Enalapril Maleate 5mg Tablets Anjum Cruz,[place] Flecainide Acetate 50mg Tablets Take One Tablet By Mouth Twice A Day Unknown Lisinopril 2.5mg Tablets Unknown Oxycodone-Acetaminophen 5-325mg Tablets Unknown Esomeprazole Magnesium 40mg Capsul es DR Take One Capsule By Mouth Once Daily Unknown Amoxicillin/Clavulanate Potassium 875-125mg Tablets Unknown Xarelto 20mg Tablets Unknown Medications Administered in Office Medication SIG Qnty Indications Ordering Provider Date Inject Triamcinolone Acetonide 10 ML, ND C 2465-4983-69 Injection Jose bocanegra, SCOTT 01/09/2018 Inject Dexamthosone Phosphate 95118-940- 30 Injection Jose Reilly DPM 018 Immunizations Description No Information Available Vital Signs Date Vital Result Comment 04/23/2019 1:21pm Height 64 inches 5'4" Weight 214.00 lb BP Systolic 132 mmHg BP Diastolic 60 mmHg Heart Rate 60 /min BMI (Body Mass Index) 36.7 kg/m2 11/04/2017 1:10pm Height 64 inches 5'4" Weight 220.00 lb BP Systolic 136 mmHg BP Diastolic 88 mmHg Heart Rate 58 /min BMI (Body Mass Index) 37.8 kg/m2 Results Description No Information Available Procedures Date Code Description Status 03/30/2021 22325 Excise Nail Bed & Matrix Complet ed 03/03/2021 10118 Office/Outpatient Established SF MDM 10-19 Min Completed 12/23/2020 69772 Office/Outpatient Established SF MDM 10-19 Min Completed 12/23/2020 41963 Debridement 6-10 Nails Electric Completed Medical Devices Description No Information Available Encounters Type Date Location Provider Dx Diagnosis Office Visit 03/03/2021 3:30p [place] [facility] Jose Reilly DPM M79.676 Pain in unspecified toe(s) L60.0 Ingrowing nail Office Visit 12/23/2020 3:15p [place] [facility] Jose Reilly DPM M65.879 Other synovitis and tenosynovitis, unsp ankle and foot B35.1 Tinea unguium L60.0 Ingrowing nail M79.676 Pain in unspecified toe(s) Assessments Date Code Description Provider 03/30/2021 L60.0 Ingrowing nail Jose Reilly, FERCHO 03/30/2021 M79.674 Pain in right toe(s) Jose houston, FERCHO 03/03/2021 M79.676 Pain in unspecified toe(s) Doug Reilly, F[place] 03/03/2021 L60.0 Ingrowing nail Jose Reilly, [place] 12/23/2020 M65.879 Other synovitis and tenosynovitis, unspecified ankle and foot Jose Reilly, F[place] 12/23/2020 B35.1 Tinea unguium Jose Reilly, [place] 12/23/2020 L60.0 Ingrowing nail Jose Reilly, [place] 12/23/2020 M79.676 Pain in unspecified toe(s) Doug Reilly DPM Plan of Treatment Future Appointment(s):* 04/13/2021 11:00 am - Jose Reilly DPM at [facility] * 05/12/2021 3:15 pm - Jose Reilly DPM at [facility] Functional Status Description No Information Available Mental Status Description No Information Available Referrals Description No Information Available
--- OUTSIDE RECORDS SUMMARY | 2021-05-08 12:54 | CCD | Continuity of Care Document ---
Author Author Donna REILLY DPM Organization Unknown Address [address] [place] [address], [facility] [address] [place] [address] Phone [phone] Care Team Providers Care Galley Stripper Name Role Phone Souleymane Cox M.D. [phone] Problems Active Problems Provider Date Ingrowing nail [...] SIG Qnty Indications Ordering Provide r Date Cephalexin 500mg Tablets 1 by mouth twice a day 14tabs Jose Reilly DPM 04/13/2021 Qocjnfbd-Xudeiqgum-GQ 1% Solution apply one drop to base of nail after betadine soaks as directed 10units Jose Reilly DPM 03/30/2021 Aspercreme W/Lidocaine 4% Cream apply to foot 2-3 times daily as needed 1units Jose Reilly DPM 12/23/2020 Prednisone 20mg Tablets Huizenga DO, Be Amoxicillin 875mg Tablets Huizenga DO, Be Alprazolam 0.5mg Tablets Kenny Cruz,Souleymane Ventolin HFA 108(90Base) mcg/Act A erosol Souleymane Cox M.D. Amoxicillin 500mg Capsules Nathalia Villalpando Sucralfate 1gm Tablets Deirdre Cruz,Ash Loratadine 10mg Tablets Take One Tablet By Mouth Every Day Unknown Fluticasone Propionate 50mcg/Act Suspension [facility] 00 Suprep Bowel Prep Kit 17.5-3.13-1.6GM/177ML Solution Deirdre Cruz,[place] Amoxicillin 500mg Tablets [facility] Fluconazole 150mg Tablets [facility] Amlodipine Besylate 2.5mg Tablets Take One Tablet By Mouth Every Day Unknown Furosemide 20mg Tablets Take One Tablet By Mouth Every Day Unknown Potassium Chloride Enedelia ER 10Meq Tablets ER Anjum Cruz,[place] Metoprolol Tartrate 50mg Tablets Anjum Cruz,[place] Enalapril Maleate 5mg Tablets Anjum Cruz,[place] Flecainide Acetate 50mg Tablets Take One Tablet By Mouth Twice A Day Unknown Lisinopril 2.5mg Tablets Unknown Oxycodone-Acetaminophen 5-325mg Tablets Unknown Esomeprazole Magnesium 40mg Capsul es DR Take One Capsule By Mouth Once Daily Unknown Amoxicillin/Clavulanate Potassium 875-125mg Tablets Unknown Xarelto 20mg Tablets Unknown Medications Administered in Office Medication SIG Qnty Indications Ordering Provider Date Inject Triamcinolone Acetonide 10 ML, ND C 5256-6286-67 Injection Jose bocanegra DPM 01/09/2018 Inject Dexamthosone Phosphate 74248-599- 30 Injection Jose Reilly DPM 018 Immunizations [...] Available Procedures Date Code Description Status 03/30/2021 63763 Excise Nail Bed & Matrix Complet ed 03/03/2021 17842 Office/Outpatient Established SF MDM 10-19 Min Completed 12/23/2020 59757 Office/Outpatient Established SF MDM 10-19 Min Completed 12/23/2020 72735 Debridement 6-10 Nails Electric Completed Medical Devices Description No Information Available Encounters Type Date Location Provider Dx Diagnosis Office Visit 04/13/2021 11:00a [place] [facility] Jose Reilly DPM Z48.89 Encounter for other specified surgical aftercare Office Visit 03/03/2021 3:30p [place] [facility] Jose Reilly DPM M79.676 Pain in unspecified toe(s) L60.0 Ingrowing nail Office Visit 12/23/2020 3:15p [place] [facility] Jose Reilly DPM M65.879 Other synovitis and tenosynovitis, unsp ankle and foot B35.1 Tinea unguium L60.0 Ingrowing nail M79.676 Pain in unspecified toe(s) Assessments Date Code Description Provider 04/13/2021 Z48.89 Encounter for other specified george rgical aftercare Jose Reilly, FERCHO 03/30/2021 L60.0 Ingrowing nail Jose Reilly, [facility] 03/30/2021 M79.674 Pain in right toe(s) Jose houston DPM 03/03/2021 M79.676 Pain in unspecified toe(s) Doug Reilly DPM 03/03/2021 L60.0 Ingrowing nail Jose Reilly, [place] 12/23/2020 M65.879 Other synovitis and tenosynovitis, unspecified ankle and foot Jose Reilly DPM 12/23/2020 B35.1 Tinea unguium Jose Reilly, [place] 12/23/2020 L60.0 Ingrowing nail Jose Reilly DPM 12/23/2020 M79.676 Pain in unspecified toe(s) Doug Reilly DPM Plan of Treatment Future Appointment(s):* 05/12/2021 3:15 pm - Jose Reilly DPM at [facility] Functional Status Description No Information Available Mental Status Description No Information Available Referrals Description No Information Available
--- OUTSIDE RECORDS SUMMARY | 2021-05-08 12:54 | CCD ---
Author Author [facility] Organization [facility] Address Unknown Phone Unavailable Care Team Providers Care Four Slide Operator Name Role Phone Souleymane Cox Unavailable PROBLEMS Type Condition ICD9-CM Code FIT87-KM Code Onset Dates Condition S tatus W/U Status Risk SNOMED Code Notes Problem Myofascial pain M79.1 Active confirmed 2790 87041 Problem Paroxysmal atrial fibrillation I48.0 Active confir med 158967014 Problem Carpal tunnel syndrome of right wrist G56.01 Ac tive confirmed 54857577 Problem Palpitations R00.2 Active confirmed 0796300 2 Problem Encounter for immunization Z23 Active confirmed 166181084 Problem Dizziness and giddiness R42 Active confirmed 645778250 Problem Pure hypercholesterolemia E78.0 Active confirmed 630967799 Problem Primary osteoarthritis involving multiple joints M 15.0 Active confirmed 186598013 Problem Chronic constipation K59.00 Active confirmed 056944935 Problem Multinodular goiter (nontoxic) E04.2 Active confir med 79237443 Problem Orthostatic hypotension I95.1 Active confirmed 03633760 Problem Chronic diastolic heart failure I50.32 Active confi rmed 996459781 Problem Maxillary sinusitis J32.0 Active confirmed 73080802 Problem History of DVT in adulthood Z86.718 Active confirme d 289779656 Problem Degenerative disc disease, cervical M50.30 Acti ve confirmed 06894207 Problem 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 Active confirmed 595775547 Problem 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 0 Active confirmed 2881728 Problem Stasis dermatitis of right l ower extremity due to peripheral venous hypertension I83.11 Active confirmed 272654050 Problem 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 Active confirmed 040452773 Problem Impairment of balance R26.89 Active confirmed 990535633 Problem Paroxysmal atrial flutter I48.92 Active confirmed 868211133 Problem Tachy-julio cesar syndrome I49.5 Active confirmed 41378365 Problem Hyperthyroidism E05.90 Active confirmed 3448 6009 Problem Ascending aortic aneurysm I71.2 Active confirmed 548901675 Problem Arteriosclerosis I70.90 Active confirmed 720 85322 Problem Perirectal burning K62.89 Active confirmed 9 0342066 Problem Carpal tunnel syndrome, left G56.02 Active con firmed 327175063103142 Problem Multinodular goiter E04.2 Active confirmed 939211012 Problem Diverticulosis K57.90 Active confirmed 65528 1000 Problem Carpal tunnel syndrome G56.00 Active confirmed 20970882 Problem Carpal tunnel syndrome, right G56.01 Active co nfirmed 786802546369951 Problem Asthma, intermittent J45.20 Active confirmed 253550544 Problem Hypertensive heart disease without heart failure I 11.9 Active confirmed 35234671 Problem Chronic dyspnea R06.09 Active confirmed 8705 47616 Problem Encounter for general adult medical exam ination with abnormal findings Z00.01 Active confirmed 640386201 Problem S/P cardiac pacemaker procedure Z95.0 Active confi rmed 174511644 Problem Primary osteoarthritis involving multiple joints M 89.49 Active confirmed 226214781 ALLERGIES Allergen (clinical drug ingredient) Drug/Non Drug Allergy do cumented on EMR Reaction Allergy Type Onset Date Status meloxicam Mobic([facility] Code:[address]-52) Bp elevated Drug Allergy Active ENCOUNTERS from 1938 to 2021-04-19 Encounter Location Date Provider Diagnosis [facility] Deep[facility] NUNEZ [phone] [place] [address] Apr, Souleymane Cox Immunization not carried out because of patient refusal Z28.21 ; Pre- op exam Z01.818 ; Paroxysmal atrial fibrillation I48.0 ; Essential hypertension I10 ; Multinodular goiter E04.2 ; S/P cardiac pacemaker procedure Z95.0 ; Ascending aortic aneurysm I71.2 ; Asthma, intermittent J45.20 ; Carpal tunnel syndrome, left G56.02 and Primary osteoarthritis involving multiple joints M89.49 IMMUNIZATIONS Vaccine Route Administration Date Status Vitamin [...] Are you a: never smoker never smoker/updated 04/18/2021 REASON FOR REFERRAL No Information VITAL SIGNS Weight 216 lbs Apr, Height 5'3 1/2" in Apr, BMI 37.66 kg/m2 Apr, Heart Rate 60 /min Apr, Respiratory Rate 18 /min Apr, Temperature 96.4 degrees Fahrenheit Apr, Oximetry 96RA Apr, Blood pressure systolic 150 mm Hg Apr, Blood pressure diastolic 82 mm Hg Apr, MEDICATIONS Medication SIG (Take, Route, Frequency, Duration) Notes Start Da te End Date Status Metoprolol Tartrate 25 mg 1 tab Orally bid Active Refresh 1.4-0.6 % 1 drop into affected eye as needed Ophthalmic 24 time(s) a day Active Vitamin D3 25 MCG (1000 UT) 1 capsule Orally Once a day for 30 day(s) Active Acetaminophen 650 MG 2 tablets as needed Orally every 12 hours Active Amoxicillin 875 MG 1 tablet Orally Twice a day for 10 day(s) Oct, Not-Taking Diflucan 150 MG 1 tablet Orally qday, repeat one in 3 days for 2 days Oct, Not-Taking Vitamin B12 500 MCG 2 tablets Orally Once a day Active Xarelto 20 MG 1 tablet with food Orally Once a day Active Ventolin HFA 108 (90 Base) MCG/ACT 2 puffs as needed Inhalation every 6 hrs Jul, Not-Taking Lasix 20 MG 1 tablet Orally Once a day for 90 day(s) Active Omeprazole 40 MG 1 capsule 30 minutes before morning meal Orally bid Sep, Active Potassium Chloride 10 MEQ 1 capsule with food Orally Once a day for 90 day(s) Active PROCEDURES No Information RESULTS No Results REASON FOR VISIT Pre Op Dr. Nick labs/xray done prior, ekg needed MEDICAL (GENERAL) HISTORY Type Description Date Medical [...] History Atrial Fibrillation: Dr. Roberson Medical History 08/2019: Negative SPECT perfusion study, Dr. Friend/[place] Medical History Novermber 2019, pacemaker. Surgical History Right knee surgery meniscus, Surgical History Left knee surgery, meniscus Surgical History Hysterectomy Surgical History Lap abd surgery Surgical History Left cataract 04/27 Surgical History Teeth extraction 04/27 Surgical History Laser tx to left eye to remove membrane 01/2015 Surgical History Colonoscopy,endoscopy 01/28/19 Surgical History Pacemaker ([employer]) 05/31/2020 Hospitalization History Surgery Hospitalization History [facility] - CHF 2019 Goals Section No Information Health Concerns No Information MEDICAL EQUIPMENT No Information MENTAL STATUS No Information FUNCTIONAL STATUS No Information ASSESSMENTS Encounter Date Diagnosis Assessment Notes Treatment Notes Treatm ent Clinical Notes Apr, Immunization not carried out because of patient refusal (ICD-10 - Z28.21) Apr, Pre-op exam (ICD-10 - Z01.818) 1. Urgency of the surgery: elective 2. Active Cardiac Conditions: none 3. Surgery-specific risk: low 4: Patient's functional capacity: Based on current negative Nuclear perfusion study and functional capacity comparable to 4 METS, her capacity is adequate. 5: Clinical risk factors: None per RCRI criteria. Recommendation: Patient is a suitable candidate for the operation and does not require additional tests. She should take her metoprolol and omeprazole on the morning of surgery. She should not take lasix. Her xarelto was stopped on 04/17/21. The xarelto may be resumed when the surgeon is confident of hemostasis. "Bridge therapy" is not recommended. Apr, Paroxysmal atrial fibrillation (ICD-10 - I48.0) Apr, Essential hypertension (ICD-10 - I10) Apr, Multinodular goiter (ICD-10 - E04.2) Apr, S/P cardiac pacemaker procedure (ICD-10 - Z95.0) Apr, Ascending aortic aneurysm (ICD-10 - I71.2) Apr, Asthma, intermittent (ICD-10 - J45.20) Apr, Carpal tunnel syndrome, left (ICD-10 - G56.02) Apr, Primary osteoarthritis involving multipl e joints (ICD-10 - M89.49) PLAN OF TREATMENT Treatment Notes Assessment Notes Clinical Notes Pre-op exam 1. Urgency of the surgery: e lective2. Active Cardiac Conditions: none3. Surgery-specific risk: low4: Patient's functional capacity: Based on current negative Nuclear perfusion study and functional capacity comparable to 4 METS, her capacity is adequate.5: Clinical risk factors: None per RCRI criteria.Recommendation: Patient is a suitable candidate for the operation and does not require additional tests.She should take her metoprolol and omeprazole on the morning of surgery. She should not take lasix. Her xarelto was stopped on 04/17/21. The xarelto may be resumed when the surgeon is confident of hemostasis. "Bridge therapy" is not recommended. Next Appt Details 3 Months Reason: Provider Name:Vicki Galicia, 11:30:00 AM, [address] [place] [address], , [place], [place], [facility], Provider Name:Souleymane Cox, 2021-06-13 11 :00:00 AM, [address] , , [place], [address], Provider Name:Souleymane Cxo, 2021-07-19 11 :00:00 AM, [address], , [place], [address], Insurance Providers Payer Name Payer Address Payer Phone Insured Name Patient Relati onship to Insured Coverage Start Date Coverage End Date MEDICARE Part A and B [address] [facility] [phone] BERNY LISA [facility] HEALTH CARE OPTIONS [facility] CLAIM DIV [address] [facility] [phone] BERNY LISA self
--- OUTSIDE RECORDS SUMMARY | 2021-05-08 12:54 | CCD ---
Author Author [facility] Organization [facility] Address Unknown Phone Unavailable Care Team Providers Care Chief Of Field Operations Name Role Phone Souleymane Cox Unavailable PROBLEMS Type Condition ICD9-CM Code [id number] Code Onset Dates Condition S tatus W/U Status Risk SNOMED Code Notes Problem Myofascial pain M79.1 Active confirmed 2790 69061 Problem Paroxysmal atrial fibrillation I48.0 Active confir med 764128022 Problem Carpal tunnel syndrome of right wrist G56.01 Ac tive confirmed 20762490 Problem Palpitations R00.2 Active confirmed 8664751 2 Problem Encounter for immunization Z23 Active confirmed 081556640 Problem Dizziness and giddiness R42 Active confirmed 171009545 Problem Pure hypercholesterolemia E78.0 Active confirmed 976799146 Problem Primary osteoarthritis involving multiple joints M 15.0 Active confirmed 398328416 Problem Chronic constipation K59.00 Active confirmed 468536187 Problem Multinodular goiter (nontoxic) E04.2 Active confir med 87784266 Problem Orthostatic hypotension I95.1 Active confirmed 42997544 Problem Chronic diastolic heart failure I50.32 Active confi rmed 123102685 Problem Maxillary sinusitis J32.0 Active confirmed 40446660 Problem History of DVT in adulthood Z86.718 Active confirme d 349141003 Problem Degenerative disc disease, cervical M50.30 Acti ve confirmed 84512481 Problem 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 Active confirmed 068250759 Problem 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 0 Active confirmed 6655464 Problem Stasis dermatitis of right l ower extremity due to peripheral venous hypertension I83.11 Active confirmed 354337387 Problem 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 Active confirmed 015370949 Problem Impairment of balance R26.89 Active confirmed 532927677 Problem Paroxysmal atrial flutter I48.92 Active confirmed 283792834 Problem Tachy-julio cesar syndrome I49.5 Active confirmed 08833675 Problem Hyperthyroidism E05.90 Active confirmed 3448 6009 Problem Ascending aortic aneurysm I71.2 Active confirmed 488461552 Problem Arteriosclerosis I70.90 Active confirmed 720 57100 Problem Perirectal burning K62.89 Active confirmed 9 2168888 Problem Carpal tunnel syndrome, left G56.02 Active con firmed 435518428033388 Problem Multinodular goiter E04.2 Active confirmed 488259081 Problem Diverticulosis K57.90 Active confirmed 08366 1000 Problem Carpal tunnel syndrome G56.00 Active confirmed 63891371 Problem Carpal tunnel syndrome, right G56.01 Active co nfirmed 680111301207118 Problem Asthma, intermittent J45.20 Active confirmed 734272791 Problem Hypertensive heart disease without heart failure I 11.9 Active confirmed 09874126 Problem Chronic dyspnea R06.09 Active confirmed 8705 44020 Problem Encounter for general adult medical exam ination with abnormal findings Z00.01 Active confirmed 386624347 Problem S/P cardiac pacemaker procedure Z95.0 Active confi rmed 055369322 Problem Primary osteoarthritis involving multiple joints M 89.49 Active confirmed 177455450 ALLERGIES Allergen (clinical drug ingredient) Drug/Non Drug Allergy do cumented on EMR Reaction Allergy Type Onset Date Status meloxicam Mobic([facility] Code:[address]-91) Bp elevated Drug Allergy Active ENCOUNTERS from 1938 to 2021-05-02 Encounter Location Date Provider Diagnosis [facility] Deepak NUNEZ [phone] [place] [address] Apr, Souleymane Nicholash IMMUNIZATIONS Vaccine Route Administration Date Status Vitamin [...] Information RESULTS No Results REASON FOR VISIT hypotension MEDICAL (GENERAL) HISTORY Type Description Date Medical [...] History 08/2019: Negative SPECT perfusion study, Dr. Friend/[place] Medical History 2019, pacemaker. Surgical History Right knee surgery meniscus, Surgical History Left knee surgery, meniscus Surgical History Hysterectomy Surgical History Lap abd surgery Surgical History Left cataract 04/27 Surgical History Teeth extraction 04/27 Surgical History Laser tx to left eye to remove membrane 01/2015 Surgical History Colonoscopy,endoscopy 01/28/19 Surgical History Pacemaker ([employer] [facility]) 05/31/2020 Hospitalization History Surgery Hospitalization History [facility] - CHF 2019 Goals Section No Information Health Concerns No Information MEDICAL EQUIPMENT No Information MENTAL STATUS No Information FUNCTIONAL STATUS No Information ASSESSMENTS No Information PLAN OF TREATMENT Next Appt Details Provider Name:Souleymane Cox, 2021-06-13 11 :00:00 AM, [address], , [place], [address], Provider Name:Souleymane Cox, 2021-07-19 11 :00:00 AM, [address], , [place], [address], Insurance Providers Payer Name Payer Address Payer Phone Insured Name Patient Relati onship to Insured Coverage Start Date Coverage End Date [employer] HE[employer] CARE OPTIONS [facility] CLAIM DIV [address] [facility] [phone] BERNY LISA MEDICARE Part A and B [address] [facility] [address] [phone] BERNY LISA self
--- OUTSIDE RECORDS SUMMARY | 2021-05-08 12:54 | CCD | Continuity of Care Document ---
Author Author Donna REILLY DPM Organization Unknown Address [address] [place] [address], [facility] [address] [place] [address] Phone [phone] Care Team Providers Care Paper Goods Machine Operator Name Role Phone Souleymane Cox M.D. [phone] Problems Active Problems Provider Date Ingrowing nail Jose Reilly DPM Onset: 11/06/2017 Corns and callosities Jose Reilly DPM Onset: 11/06/2017 Onychomycosis Jose Reilly DPM Onset: 01/01/2020 Pain in limb Jose Reilly DPM Onset: 08/09/2020 Social History Type Date Description Comments Sex Unknown ETOH Use Denies alcohol use Tobacco Use Start: Unknown Patient has never smoked Allergies, Adverse Reactions, Alerts Description No Known Drug Allergies Medications Active Medications SIG Qnty Indications Ordering Provide r Date Aspercreme W/Lidocaine 4% Cream apply to foot 2-3 times daily as needed 1units Jose Reilly DPM 12/23/2020 Amlodipine Besylate 2.5mg Tablets Take One Tablet By Mouth Every Day Unknown Prednisone 20mg Tablets Huizenga DO, Be Amoxicillin 875mg Tablets Martinizenga , Be Alprazolam 0.5mg Tablets Kenny Cruz,Souleymane Ventolin HFA 108(90Base) mcg/Act A erosol Kenny Cruz,Souleymane Amoxicillin 500mg Capsules Nathalia Villalpando Sucralfate 1gm Tablets Ash Gilmore M.D. Loratadine 10mg Tablets Take One Tablet By Mouth Every Day Unknown Fluticasone Propionate 50mcg/Act Suspension [facility] 00 Suprep Bowel Prep Kit 17.5-3.13-1.6GM/177ML Solution Ash Gilmore M.D. Amoxicillin 500mg Tablets [facility] Fluconazole 150mg Tablets [facility] Furosemide 20mg Tablets Take One Tablet By Mouth Every Day Unknown Potassium Chloride Enedelia ER 10Meq Tablets ER Anjum Cruz,[place] Metoprolol Tartrate 50mg Tablets Anjum Cruz,[place] Enalapril Maleate 5mg Tablets Anjum Cruz,[place] Flecainide Acetate 50mg Tablets Take One Tablet By Mouth Twice A Day Unknown Lisinopril 2.5mg Tablets Unknown Oxycodone-Acetaminophen 5-325mg Tablets Unknown Esomeprazole Magnesium 40mg Capsul es DR Take One Capsule By Mouth Once Daily Unknown Amoxicillin/Clavulanate Potassium 875-125mg Tablets Unknown Xarelto 20mg Tablets Unknown Medications Administered in Office Medication SIG Qnty Indications Ordering Provider Date Inject Triamcinolone Acetonide 10 ML, ND C 6637-7911-10 Injection SCOTT Mendoza 01/09/2018 Inject Dexamthosone Phosphate 40526-954- 30 Injection Jose Reilly, [facility] 018 Immunizations Description No Information Available Vital [...] Information Available Procedures Date Code Description Status 03/03/2021 80005 Office/Outpatient Established SF MDM 10-19 Min Completed 12/23/2020 91693 Office/Outpatient Established SF MDM 10-19 Min Completed 12/23/2020 21974 Debridement 6-10 Nails Electric Completed 10/07/2020 19163 Debridement 6-10 Nails Electric Completed Medical Devices Description No Information Available Encounters Type Date Location Provider Dx Diagnosis Office Visit 03/03/2021 3:30p [place] [facility] Jose Reilly DPM M79.676 Pain in unspecified toe(s) L60.0 Ingrowing nail Office Visit 12/23/2020 3:15p [place] [facility] Jose Reilly DPM M65.879 Other synovitis and tenosynovitis, unsp ankle and foot B35.1 Tinea unguium L60.0 Ingrowing nail M79.676 Pain in unspecified toe(s) Assessments Date Code Description Provider 03/03/2021 M79.676 Pain in unspecified toe(s) Doug Reilly, [place] 03/03/2021 L60.0 Ingrowing nail Jose Reilly, DPM 12/23/2020 M65.879 Other synovitis and tenosynovitis, unspecified ankle and foot Jose Reilly, FER[place] 12/23/2020 B35.1 Tinea unguium Jose Reilly, DPM 12/23/2020 L60.0 Ingrowing nail Jose Reilly, DPM 12/23/2020 M79.676 Pain in unspecified toe(s) Doug Reilly, [place]ER[place] 10/07/2020 B35.1 Tinea unguium Jose Reilly, DPM 10/07/2020 L60.0 Ingrowing nail Jose Reilly, [facility]OT[facility] 10/07/2020 M79.676 Pain in unspecified toe(s) Doug Reilly DPM Plan of Treatment Future Appointment(s):* 05/12/2021 3:15 pm - Jose Reilly DPM at [facility] Functional Status Description No Information Available Mental Status Description No Information Available Referrals Description No Information Available
--- OUTSIDE RECORDS SUMMARY | 2021-05-08 12:54 | CCD ---
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 Name Role Phone Souleymane Cox Unavailable PROBLEMS Type Condition ICD9-CM Code FUQ55-SH Code Onset Dates Condition S tatus W/U Status Risk SNOMED Code Notes Problem Orthostatic hypotension I95.1 Active confirmed 13663175 Problem History of DVT in adulthood Z86.718 Active confirme d 835785924 Problem Degenerative disc disease, cervical M50.30 Acti ve confirmed 92977659 Problem Carpal tunnel syndrome of right wrist G56.01 Ac tive confirmed 65839571 Problem Myofascial pain M79.1 Active confirmed 2730 41825 Problem Encounter for immunization Z23 Active confirmed 930729226 Problem Paroxysmal atrial fibrillation I48.0 Active confir med 967517609 Problem 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 Active confirmed 272405712 Problem Impairment of balance R26.89 Active confirmed 018753259 Problem B12 deficiency E53.8 Active confirmed 82130 4004 Problem History of thrombophlebitis Z86.72 Active confirmed 143961296 Problem Maxillary sinusitis J32.0 Active confirmed 02315078 Problem Stasis dermatitis of right l ower extremity due to peripheral venous hypertension I83.11 Active confirmed 349267243 Problem Multinodular goiter E04.2 Active confirmed 248178621 Problem Arteriosclerosis I70.90 Active confirmed 720 51259 Problem 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 A ctive confirmed 37618653 Problem Carpal tunnel syndrome G56.00 Active confirmed 66291343 Problem Carpal tunnel syndrome, right G56.01 Active co nfirmed 297630768754186 Problem Asthma, intermittent J45.20 Active confirmed 268656853 Problem Bony exostosis M89.8X9 Active confirmed 4161 59730 Problem Vitamin B12 deficiency E53.8 Active confirmed 185542405 Problem 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 0 Active confirmed 7778737 Problem Chronic diastolic heart failure I50.32 Active confi rmed 367861721 Problem Multinodular goiter (nontoxic) E04.2 Active confir med 49471570 Problem Chronic dyspnea R06.09 Active confirmed 8705 58462 Problem Primary osteoarthritis involving multiple joints M 15.0 Active confirmed 372485133 Problem Chronic constipation K59.00 Active confirmed 332109396 Problem S/P cardiac pacemaker procedure Z95.0 Active confi rmed 149102842 Problem Palpitations R00.2 Active confirmed 7207352 2 Problem Diverticulosis K57.90 Active confirmed 86891 1000 Problem Dizziness and giddiness R42 Active confirmed 799466843 Problem Pure hypercholesterolemia E78.0 Active confirmed 694172962 Problem Paroxysmal atrial flutter I48.92 Active confirmed 896336100 Problem Tachy-julio cesar syndrome I49.5 Active confirmed 62896614 Problem Perirectal burning K62.89 Active confirmed 9 0574142 Problem Hyperthyroidism E05.90 Active confirmed 3448 6009 Problem Hypertensive heart disease without heart failure I 11.9 Active confirmed 53034832 ALLERGIES Allergen (clinical drug ingredient) Drug/Non Drug Allergy do cumented on EMR Reaction Allergy Type Onset Date Status meloxicam Mobic([facility] Code:[address]-83) Bp elevated Drug Allergy Active ENCOUNTERS from 1940 to 2021-03-16 Encounter Location Date Provider Diagnosis [facility] Deepak NUNEZ ZACHERY [phone] [place] [address] Mar, Souleymane Cox Pre-op exam Z01.[address] E04.2 IMMUNIZATIONS Vaccine Route Administration Date Status Vitamin [...] Information RESULTS No Results REASON FOR VISIT pre test MEDICAL (GENERAL) HISTORY Type Description Date Medical [...] History Colonoscopy,endoscopy 01/28/19 Surgical History Pacemaker ([facility]) 05/31/2020 Hospitalization History Surgery Hospitalization History [facility] - [facility] 2018 Goals Section No Information Health Concerns No Information MEDICAL EQUIPMENT No Information MENTAL STATUS No Information FUNCTIONAL STATUS No Information ASSESSMENTS Encounter Date Diagnosis Assessment Notes Treatment Notes Treatm ent Clinical Notes Mar, Pre-op exam (ICD-10 - Z01.818) Mar, Multinodular goiter (ICD-10 - E04.2) PLAN OF TREATMENT Medication Medication Name Sig [...] MCG 2 tablets Orally Once a day Future Test Test Name Order Date PT & APTT [id number] CBC - Complete Blood Count [id number] Comprehensive Metabolic Profile (CMP) [id number] FREE T4 & TSH PANEL [id number] FREE T3 [id number] [facility] 2 V[facility] [id number] Next Appt Details Provider Name:Souleymane Cox, 2021-04-18 10 :00:00 AM, [employer] , , [place], [address], Provider Name:Vicki Galicia, 11:30:00 AM, [address] [place] [address], , [place], [address], Provider Name:Souleymane Cox, 2021-06-13 11 :00:00 AM, [employer] , , [place], [address], Insurance Providers Payer Name Payer Address Payer Phone Insured Name Patient Relati onship to Insured Coverage Start Date Coverage End Date MEDICARE Part A and B [address] [facility] [id number] BERNY LISA [facility] OPTIONS [facility] [address] [facility] [id number] BERNY LISA self
--- OUTSIDE RECORDS SUMMARY | 2021-05-08 12:55 | CCD ---
Author Author [facility] Organization [facility] Address Unknown Phone Unavailable Care Team Providers Care Barge Pilot Name Role Phone Lloyd Guerra MD Unavailable Unavaila Lloyd Paula MD Unavailable Unavaila ble MigLloyd estrada MD Unavailable Unavaila Lloyd Paula MD Unavailable Unavaila Lloyd Paula MD Unavailable Unavaila Lloyd Paula MD Unavailable Unavaila Lloyd Paula MD Unavailable Unavaila Lloyd Paula MD Unavailable Unavaila Lloyd Paula MD Unavailable Unavaila Lloyd Paula MD Unavailable Unavaila Lloyd Paula MD Unavailable Unavaila Lloyd Paula MD Unavailable Unavaila Lloyd Paula MD Unavailable Unavaila Lloyd Paula MD Unavailable Unavaila Lloyd Paula MD Unavailable Unavaila ble MigeedLloyd MD Unavailable Unavaila ble Migeed, Lloyd Maldonado MD Unavailable Unavaila ble Migeed, Lloyd Maldonado MD Unavailable Unavaila ble MigeedLloyd MD Unavailable Unavaila ble Migeed, Lloyd Maldonado MD Unavailable Unavaila ble Migeed, Lloyd Maldonado MD Unavailable Unavaila ble Migeed, Lloyd Maldonado MD Unavailable Unavaila ble MigeedLloyd MD Unavailable Unavaila ble Migeed, Lloyd Maldonado MD Unavailable Unavaila ble Migeed, Lloyd Maldonado MD Unavailable Unavaila ble Migeed, Lloyd Maldonado MD Unavailable Unavaila ble Migeed, Lloyd Maldonado MD Unavailable Unavaila ble Migeed, Lloyd Maldonado MD Unavailable Unavaila ble Migeed, Lloyd Maldonado MD Unavailable Unavaila ble Migeed, Lloyd Maldonado MD Unavailable Unavaila ble Migeed, Lloyd Maldonado MD Unavailable Unavaila ble Migeed, Lloyd Maldonado MD Unavailable Unavaila ble Migeed, Lloyd Maldonado MD Unavailable Unavaila ble Migeed, Lloyd Maldonado MD Unavailable Unavaila ble Migeed, Lloyd Maldonado MD Unavailable Unavaila ble Migeed, Lloyd Maldonado MD Unavailable Unavaila ble MigeedLloyd MD Unavailable Unavaila ble MigeedLloyd MD Unavailable Unavaila ble MigeedLloyd MD Unavailable Unavaila ble MigeedLloyd MD Unavailable Unavaila ble MigeedLloyd MD Unavailable Unavaila ble MigeedLloyd MD Unavailable Unavaila ble MigeedLloyd MD Unavailable Unavaila ble MigeedLloyd MD Unavailable Unavaila ble MigeedLloyd MD Unavailable Unavaila ble MigeedLloyd MD Unavailable Unavaila ble MigeedLloyd MD Unavailable Unavaila ble MigeedLloyd MD Unavailable Unavaila ble MigeedLloyd MD Unavailable Unavaila ble MAJAK, R IAN DPM Unavailable Unavailable MAJAK, R IAN DPM Unavailable Unavailable MAJAK, R IAN DPM Unavailable Unavailable MAJAK, R IAN DPM Unavailable Unavailable MAJAK, R IAN DPM Unavailable Unavailable MAJAK, R IAN DPM Unavailable Unavailable MAJAK, R IAN DPM Unavailable Unavailable MAJAK, R IAN DPM Unavailable Unavailable MAJAK, R AIN DPM Unavailable Unavailable MAJAK, R IAN DPM Unavailable Unavailable MAJAK, R IAN DPM Unavailable Unavailable MAJAK, R IAN DPM Unavailable Unavailable MAJAK, R IAN DPM Unavailable Unavailable MAJAK, R IAN DPM Unavailable Unavailable MAJAK, R IAN DPM Unavailable Unavailable MAJAK, R IAN DPM Unavailable Unavailable MAJAK, R IAN DPM Unavailable Unavailable MAJAK, R IAN DPM Unavailable Unavailable MAJAK, R IAN DPM Unavailable Unavailable MAJAK, R IAN DPM Unavailable Unavailable MAJAK, R IAN DPM Unavailable Unavailable MAJAK, R IAN DPM Unavailable Unavailable MAJAK, R IAN DPM Unavailable Unavailable MAJAK, R IAN DPM Unavailable Unavailable MAJAK, R IAN DPM Unavailable Unavailable MAJAK, R IAN DPM Unavailable Unavailable MAJAK, R IAN DPM Unavailable Unavailable MAJAK, R IAN DPM Unavailable Unavailable MAJAK, R IAN DPM Unavailable Unavailable MAJAK, R IAN DPM Unavailable Unavailable AK, R IAN DPM Unavailable Unavailable GigieedLloyd MD Unavailable Unavaila ble MigeedLloyd MD Unavailable Unavaila ble MigeedLloyd MD Unavailable Unavaila ble MigeedLloyd MD Unavailable Unavaila ble MigeedLloyd MD Unavailable Unavaila ble MigeedLloyd MD Unavailable Unavaila ble MigeedLloyd MD Unavailable Unavaila ble MigeedLloyd MD Unavailable Unavaila ble MigeedLloyd MD Unavailable Unavaila ble MigeedLloyd MD Unavailable Unavaila ble Migeed, Lloyd Maldonado MD Unavailable Unavaila ble MigeedLloyd MD Unavailable Unavaila ble MigeedLloyd MD Unavailable Unavaila ble Migeed, Lloyd Maldonado MD Unavailable Unavaila ble Migeed, Lloyd Maldonado MD Unavailable Unavaila ble Migeed, Lloyd Maldonado MD Unavailable Unavaila ble MigeedLloyd MD Unavailable Unavaila ble Migeed, Lloyd Maldonado MD Unavailable Unavaila ble Migeed, Lloyd Maldonado MD Unavailable Unavaila ble Migeed, Lloyd Maldonado MD Unavailable Unavaila ble Migeed, Lloyd Maldonado MD Unavailable Unavaila ble Migeed, Lloyd Maldonado MD Unavailable Unavaila ble Migeed, Lloyd Maldonado MD Unavailable Unavaila ble Migeed, Lloyd Maldonado MD Unavailable Unavaila ble Migeed, Lloyd Maldonado MD Unavailable Unavaila ble Migeed, Lloyd Maldonado MD Unavailable Unavaila ble Migeed, Lloyd Maldonado MD Unavailable Unavaila ble Migeed, Lloyd Maldonado MD Unavailable Unavaila ble Migeed, Lloyd Maldonado MD Unavailable Unavaila ble Migeed, Lloyd Maldonado MD Unavailable Unavaila ble MigeedLloyd MD Unavailable Unavaila ble MigeedLloyd MD Unavailable Unavaila ble MigeedLloyd MD Unavailable Unavaila ble MigeedLloyd MD Unavailable Unavaila ble MigeedLloyd MD Unavailable Unavaila ble MigeedLloyd MD Unavailable Unavaila ble MigeedLloyd MD Unavailable Unavaila ble MigeedLloyd MD Unavailable Unavaila ble MigeedLloyd MD Unavailable Unavaila ble MigeedLloyd MD Unavailable Unavaila ble MigeedLloyd MD Unavailable Unavaila ble MigeedLloyd MD Unavailable Unavaila ble MigeedLloyd MD Unavailable Unavaila ble MigeedLloyd MD Unavailable Unavaila ble MigeedLloyd MD Unavailable Unavaila ble MigeedLloyd MD Unavailable Unavaila ble MigeedLloyd MD Unavailable Unavaila ble MigeedLloyd MD Unavailable Unavaila ble MigeedLloyd MD Unavailable Unavaila ble MYLA, LAUREN MASON SECURITY COORDINATOR-C Unavailable Unavailable MYLA, LAUREN MASON SECURITY COORDINATOR-C Unavailable Unavailable MYLA, LAUREN MASON SECURITY COORDINATOR-C Unavailable Unavailable MYLA, LAUREN MASON SECURITY COORDINATOR-C Unavailable Unavailable MYLA, LAUREN MASON SECURITY COORDINATOR-C Unavailable Unavailable MYLA, LAUREN MASON SECURITY COORDINATOR-C Unavailable Unavailable MYLA, LAUREN MASON SECURITY COORDINATOR-C Unavailable Unavailable MYLA, LAUREN MASON SECURITY COORDINATOR-C Unavailable Unavailable MYLA, LAUREN MASON SECURITY COORDINATOR-C Unavailable Unavailable MYLA, LAUREN MASON SECURITY COORDINATOR-C Unavailable Unavailable MYLA, LAUREN MASON SECURITY COORDINATOR-C Unavailable Unavailable MYLA, LAUREN MASON SECURITY COORDINATOR-C Unavailable Unavailable MYLA, LAUREN MASON SECURITY COORDINATOR-C Unavailable Unavailable MYLA, LAUREN MASON SECURITY COORDINATOR-C Unavailable Unavailable MYLA, LAUREN MASON SECURITY COORDINATOR-C Unavailable Unavailable MYLA, LAUREN MASON SECURITY COORDINATOR-C Unavailable Unavailable MYLA, LAUREN MASON SECURITY COORDINATOR-C Unavailable Unavailable [place], V DINORAH PA-C Unavailable Unavailable Art, V DINORAH PA-C Unavailable Unavailable [place], V DINORAH PA-C Unavailable Unavailable [place], V DINORAH PA-C Unavailable Unavailable [place], V DINORAH PA-C Unavailable Unavailable Art, V DINORAH PA-C Unavailable Unavailable Art, V DINORAH PA-C Unavailable Unavailable [place], V DINORAH PA-C Unavailable Unavailable Art, V DINORAH PA-C Unavailable Unavailable [place], V DINORAH PA-C Unavailable Unavailable Art, V DINORAH PA-C Unavailable Unavailable [place], V DINORAH PA-C Unavailable Unavailable [place], V DINORAH PA-C Unavailable Unavailable [place], V DINORAH PA-C Unavailable Unavailable Mary, N Shade [employer]OD FLOORING SPECIALIST Unavailable Unavailable Mary, N Shade HARDWOOD FLOORING SPECIALIST Unavailable Unavailable Mary, N Shade HARDWOOD FLOORING SPECIALIST Unavailable Unavailable Aurora, N Shade HARDWOOD FLOORING SPECIALIST Unavailable Unavailable Mary, N Shade HARDWOOD FLOORING SPECIALIST Unavailable Unavailable Aurora, N Shade HARDWOOD FLOORING SPECIALIST Unavailable Unavailable Aurora, N Shade HARDWOOD FLOORING SPECIALIST Unavailable Unavailable Mary, N Shade HARDWOOD FLOORING SPECIALIST Unavailable Unavailable Aurora, N Shade HARDWOOD FLOORING SPECIALIST Unavailable Unavailable Aurora, N Shade HARDWOOD FLOORING SPECIALIST Unavailable Unavailable Aurora, N Shade HARDWOOD FLOORING SPECIALIST Unavailable Unavailable Mary, N Shade HARDWOOD FLOORING SPECIALIST Unavailable Unavailable Aurora, N Shade HARDWOOD FLOORING SPECIALIST Unavailable Unavailable Mary, N Shade HARDWOOD FLOORING SPECIALIST Unavailable Unavailable Aurora, N Shade HARDWOOD FLOORING SPECIALIST Unavailable Unavailable Mary, N Shade HARDWOOD FLOORING SPECIALIST Unavailable Unavailable Aurora, N Shade HARDWOOD FLOORING SPECIALIST Unavailable Unavailable Mary, N Shade HARDWOOD FLOORING SPECIALIST Unavailable Unavailable Mary, N Shade HARDWOOD FLOORING SPECIALIST Unavailable Unavailable Mary, N Shade HARDWOOD FLOORING SPECIALIST Unavailable Unavailable Aurora, N Shade HARDWOOD FLOORING SPECIALIST Unavailable Unavailable Mary, N Shade HARDWOOD FLOORING SPECIALIST Unavailable Unavailable Aurora, N Shade HARDWOOD FLOORING SPECIALIST Unavailable Unavailable Mary, N Shade HARDWOOD FLOORING SPECIALIST Unavailable Unavailable Aurora, N Shade HARDWOOD FLOORING SPECIALIST Unavailable Unavailable Mary, N Shade HARDWOOD FLOORING SPECIALIST Unavailable Unavailable Mary, N Shade HARDWOOD FLOORING SPECIALIST Unavailable Unavailable Mary, N Shade HARDWOOD FLOORING SPECIALIST Unavailable Unavailable Mary, N Shade HARDWOOD FLOORING SPECIALIST Unavailable Unavailable Aurora, N Shade HARDWOOD FLOORING SPECIALIST Unavailable Unavailable Aurora, N Shade HARDWOOD FLOORING SPECIALIST Unavailable Unavailable Aurora, N Shade HARDWOOD FLOORING SPECIALIST Unavailable Unavailable Aurora, N Shade HARDWOOD FLOORING SPECIALIST Unavailable Unavailable MEDENT_[id number], NA Unavailable [phone] Shawn NICK MD Unavailable Unavailable Shawn NICK MD Unavailable Unavailable Shawn NICK MD Unavailable Unavailable Shawn NICK MD Unavailable Unavailable Shawn NICK MD Unavailable Unavailable Shawn NICK MD Unavailable Unavailable Shawn NICK MD Unavailable Unavailable Shawn NICK MD Unavailable Unavailable Shawn NICK MD Unavailable Unavailable Shawn NICK MD Unavailable Unavailable Shawn NICK MD Unavailable Unavailable Shawn NICK MD Unavailable Unavailable Shawn NICK MD Unavailable Unavailable Shawn NICK MD Unavailable Unavailable Shawn NICK MD Unavailable Unavailable Shawn NICK MD Unavailable Unavailable FADUMO, C GREGORY MD Unavailable Unavailable FADUMO, C GREGORY MD Unavailable Unavailable FADUMO, C GREGORY MD Unavailable Unavailable FADUMO, C GREGORY MD Unavailable Unavailable FADUMO, C GREGORY MD Unavailable Unavailable FADUMO, C GREGORY MD Unavailable Unavailable FADUMO, C GREGORY MD Unavailable Unavailable FADUMO, C GREGORY MD Unavailable Unavailable FADUMO, C GREGORY MD Unavailable Unavailable FADUMO, C GREGORY MD Unavailable Unavailable FADUMO, C GREGORY MD Unavailable Unavailable FADUMO, C GREGORY MD Unavailable Unavailable FADUMO, C GREGORY MD Unavailable Unavailable FADUMO, C GREGORY MD Unavailable Unavailable FADUMO, C GREGORY MD Unavailable Unavailable FADUMO, C GREGORY MD Unavailable Unavailable FADUMO, C GREGORY MD Unavailable Unavailable FADUMO, C GREGORY MD Unavailable Unavailable Re-disclosure Warning The records that you are about to access may contain information from federally-assisted alcohol or drug abuse programs. If such information is present, then the following federally mandated warning applies: This information has been disclosed to you from records protected by federal confidentiality rules (42 CFR part 2). The federal rules prohibit you from making any further disclosure of this information unless further disclosure is expressly permitted by the written consent of the person to whom it pertains or as otherwise permitted by 42 CFR part 2. A general authorization for the release of medical or other information is NOT sufficient for this purpose. The Federal rules restrict any use of the information to criminally investigate or prosecute any alcohol or drug abuse patient.The records that you are about to access may contain highly sensitive health information, the redisclosure of which is protected by Article 27-F of the [facility] Public Health law. If you continue you may have access to information: Regarding HIV / AIDS; Provided by facilities licensed or operated by the [facility] Office of Mental Health; or Provided by the [facility] Office for People With Developmental Disabilities. If such information is present, then the following [facility] mandated warning applies: This information has been disclosed to you from confidential records which are protected by state law. State law prohibits you from making any further disclosure of this information without the specific written consent of the person to whom it pertains, or as otherwise permitted by law. Any unauthorized further disclosure in violation of state law may result in a fine or group home sentence or both. A general authorization for the release of medical or other information is NOT sufficient authorization for further disc losure. Allergies and Adverse Reactions Type Description Substance Reaction Status Data Source(s ) Drug Allergy NKDA NKDA MED[facility] ([facility], ) Family History Family Member Name Family Member Gender Family Member Status Date o f Status Description Data Source(s) Unknown Female Problem [facility] ([facility]) Unknown Male Problem [facility] ([facility], ) Unknown Male Problem MED[facility] ([facility]) Unknown Male Problem [facility] ([facility] () Unknown Male Problem MED[facility] ([facility] ) Encounters Encounter Providers Location Date Indications Data Source(s ) Unknown [address] [facility] [place] [address] 05/01/2021 12:00:00 AM EDT eCW1 (Critical access hospital) Outpatient Admitter: GREGORY NICK MDReferrer: GREGORY NICK MD 04/26/2021 12:00:00 AM EDT Nontoxic goiter, unspecified [facility] Nontoxic goiter, unspecified Outpatient [address] [place] [id number] 04/18/2021 12:00:00 AM EDT eCW1 (Critical access hospital) Outpatient [email or web address] 04/13/2021 12:03:15 PM EDT [facility] Office Visit Attender: IAN REILLY [facility] Office 03/17 11:00:00 AM EDT MED[facility] ([facility] Unknown [address] [facility] [address] 03/28/2021 12:00:00 AM EDT eCW1 (Critical access hospital) Unknown [address] [facility] [place] [address] 03/15/2021 12:00:00 AM EDT eCW1 (Critical access hospital) Outpatient Attender: IAN REILLY [facility] Office 02/13 03:30:00 PM EDT MED[facility] ([facility] [place] [address] [facility] [place] [address] 02/09/2021 12:00:00 AM EDT eCW1 (Critical access hospital) Outpatient Attender: GREGORY Nick/Charito/Gal/Shanted nahed 01/30/2021 09:30:00 AM EDT MEDENT ([facility], ) [place] [address] [facility] [place] [address] 01/20/2021 12:00:00 AM EDT eCW1 (Critical access hospital) Unknown [address] [facility] [place] [address] 01/17/2021 12:00:00 AM EDT eCW1 (Critical access hospital) Outpatient AYAAN-SJP.AVRIL 01/04/2021 12:30:51 PM EDT [facility] Outpatient Attender: IAN REILLY Formerly named [facility] 12/13 03:15:00 PM EDT MED[facility] ([facility] Outpatient Attender: GREGORY Nick/Charito/Gal/Alice dockery 12/23/2020 02:00:00 PM EDT MED[facility] ([facility], ) Outpatient Attender: MASON Nick/Charito/Gal/Vidya galdamez 12/19/2020 10:15:00 AM EDT MEDENT ([facility], ) Outpatient Attender: DINORAH FREY-SJSidney.CONY 12:00:00 AM EDT - 12/08/2020 10:55:32 AM EDT [facility] Outpatient Referrer: DINORAH FREY-SJLauraCONY 11:15:14 AM EDT [facility] Outpatient Attender: DINORAH BEALSJLauraCONY 04/2021 01:21:30 PM EDT - 11/21/2020 02:57:24 PM EDT [facility] Outpatient Attender: MASON Nick/Charito/Walter galdamez 11/15/2020 01:15:00 PM EDT MEDENT ([facility], ) Outpatient Attender: DINORAH FREY-SJSidney.CONY 01:10:30 PM EDT - 11/08/2020 02:57:59 PM EDT [facility] Outpatient [address] [facility] [place] [address] 11/03/2020 12:00:00 AM EDT eCW1 (Critical access hospital) Unknown [address] [facility] [place] [address] 11/03/2020 12:00:00 AM EDT eCW1 (Critical access hospital) Outpatient Attender: DINORAH CARMENCONY-SJP.CONY 10:12:32 AM EDT - 10/25/2020 11:16:43 AM EDT [facility] Unknown [address] [facility] [place] [address] 10/19/2020 12:00:00 AM EDT eCW1 (Critical access hospital) Unknown [address] [facility] [place] [address] 10/04/2020 12:00:00 AM EDT eCW1 (Critical access hospital) Outpatient SHANTE-SJP 09/30/2020 11:27:23 AM EDT [facility] Outpatient SHANTE-PETER.CONY 09/29/2020 12:00:00 AM EDT [facility] Outpatient [address] [facility] [place] [address] 09/16/2020 12:00:00 AM EST eCW1 (Critical access hospital) Unknown [address] [facility] [place] [address] 09/15/2020 12:00:00 AM EST eCW1 (Critical access hospital) Outpatient [address] [facility] [place] [address] 08/10/2020 12:00:00 AM EST eCW1 (Critical access hospital) Outpatient SJP.CONY-SJP 07/02/2020 10:42:01 AM EST [facility] Outpatient SJP.CONY-[email or web address].CONY 06/30/2020 12:00:00 AM EST [facility] Outpatient Attender: DINORAH Cordova PA-C [email or web address] 03/2020 12:00:00 AM EST - 06/22/2020 02:55:55 PM EST [facility] Outpatient [address] [facility] [place] [address] 06/16/2020 12:00:00 AM EST eCW1 (Critical access hospital) Unknown [address] [facility], [facility] [address] 06/16/2020 12:00:00 AM EST eCW1 (Critical access hospital) Office Visit Attender: NA LAWSON_[address] [facility] s 06/06/2020 10:00:00 AM EST MEDENT ([facility]) Outpatient Attender: GREGORY Nick/Charito/aGl/Alice dockery 05/31/2020 12:15:00 PM EST MED[facility] ([facility] Outpatient Attender: Erica Guerra MD Admitter: Erica Guerra MDReferrer: Erica Guerra MD [email or web address] 05/30/2020 12:14:00 PM EST - 05/30/2020 04:40:00 PM EST [facility] Patient discharged. Outpatient Attender: Erica Guerra MD [facility] 05/19/2020 01:00:00 PM EST MEDENT ([facility]) Outpatient Attender: IAN REILLY [facility] Office 04/16 03:15:00 PM EDT [facility] ([facility] Outpatient Attender: GREGORY Nick/Charito/Gal/Alice dockery 05/02/2020 02:00:00 PM EDT [facility] [place] [address] [facility] [place] [address] 04/27/2020 12:00:00 AM EDT eCW1 (Critical access hospital) Outpatient [address] [facility] [place] [address] 04/22/2020 12:00:00 AM EDT eCW1 (Critical access hospital) Unknown [address] [facility] [place] [address] 04/21/2020 12:00:00 AM EDT eCW1 (Critical access hospital) [place] [address] [facility] [place] [address] 04/13/2020 12:00:00 AM EDT eCW1 (Critical access hospital) Outpatient Attender: Shade Hernandez NP [email or web address]-[email or web address] 020 10:41:00 AM EDT - 04/12/2020 12:05:10 PM EDT [facility] Medications Medication Brand Name Start Date Product Form Dose Route Admi nistrative Instructions Pharmacy Instructions Status Indications Reaction Description Data Source(s) 10 mg 04/21/2021 12:00:00 AM EDT tablet 30 TAKE ONE TABLET BY MOUTH EVERY DAY TAKE ONE TABLET BY MOUTH EVERY DAY SOLD: 04/21/2021 [facility] 5-325 mg 04/21/2021 12:00:00 AM EDT tablet 20 TAKE ONE TABLET BY MOUTH EVERY 6 HOURS NEEDED FOR PAIN >5 OUT OF 10 MAXIMUM DAILY DOSE = 4 TABLETS TAKE ONE TABLET BY MOUTH EVERY 6 HOURS NEEDED FOR PAIN >5 OUT OF 10 MAXIMUM DAILY DOSE = 4 TABLETS SOLD: 04/21/2021 [facility] Amoxicillin 875 MG / Clavulanate 125 MG Oral Tablet 87 5-125 mg AMOXICILLIN/POTASSIUM CLAV 04/21/2021 12:00:00 AM EDT tablet 14 TAKE ONE TABLET BY MOUTH TWICE A DAY TAKE ONE TABLET BY MOUTH TWICE A DAY SOLD: 04/21/2021 [facility] Cephalexin 500 MG Oral Capsule CEPHALEXIN 04/13/2021 12:00:00 AM EDT capsule 14 TAKE ONE CAPSULE BY MOUTH TWICE A DAY TAKE ONE CAPSULE BY MO UTH TWICE A DAY SOLD: 04/13/2021 [facility] Cephalexin 500 MG Oral Tablet Cephalexin 04/13/2021 12:00:00 AM EDT ORAL active MED[facility] ([facility] Hydrocortisone 10 MG/ML / Neomycin 3.5 M G/ML / Polymyxin B 68260 UNT/ML Otic Solution Cxwzujim-Oixdopjhi-LU 03/30/2021 12:00:00 AM EDT active [facility] ([facility] 20 mg 02/10/2021 12:00:00 AM EDT tablet 90 TAKE ONE TABLET BY MOUTH EVERY DAY TAKE ONE TABLET BY MOUTH EVERY DAY SOLD: 02/13/2021 [facility] Potassium Chloride 10 MEQ Extended Release Oral Capsule POTA SSIUM CHLORIDE 02/10/2021 12:00:00 AM EDT capsule, extended release 90 TAKE ONE CAPSULE BY MOUTH EVERY DAY WITH FOOD TAKE ONE CAPSULE BY MOUTH EVERY DAY WITH FOOD SOLD: 02/13/2021 [facility] 20 mg 12/30/2020 12:00:00 AM EDT tablet 90 TAKE ONE TABLET BY MOUTH EVERY DAY TAKE ONE TABLET BY MOUTH EVERY DAY SOLD: 03/31/2021 [facility] 20 mg 12/30/2020 12:00:00 AM EDT tablet 90 TAKE ONE TABLET BY MOUTH EVERY DAY TAKE ONE TABLET BY MOUTH EVERY DAY SOLD: 12/30/2020 [facility] Lidocaine Hydrochloride 40 MG/ML Topical Cream Aspercreme W/ Lidocaine 12/23/2020 12:00:00 AM EDT active M [facility] ([facility] 25 mg 12/03/2020 12:00:00 AM EDT tablet 60 TAKE ONE TABLET BY MOUTH TWICE A DAY TAKE ONE TABLET BY MOUTH TWICE A DAY SOLD: 12/10/2020 [facility] 25 mg 12/03/2020 12:00:00 AM EDT tablet 60 TAKE ONE TABLET BY MOUTH TWICE A DAY TAKE ONE TABLET BY MOUTH TWICE A DAY SOLD: 01/24/2021 [facility] 25 mg 12/03/2020 12:00:00 AM EDT tablet 60 TAKE ONE TABLET BY MOUTH TWICE A DAY TAKE ONE TABLET BY MOUTH TWICE A DAY SOLD: 03/10/2021 [facility] Metoprolol Tartrate 25 MG Oral Tablet me toprolol tartrate (LOPRESSOR) 25 MG tablet metoprolol tartrate (LOPRESSOR) 25 MG tablet 11/21/2020 12:0 0:00 AM EDT 25 mg Oral active Take 1 tablet (2 5 mg total) by mouth 2 (two) times a day [facility] Amoxicillin 875 MG Oral Tablet Amoxicillin 875 MG 11/03/2020 12:00: 00 AM EDT 1.0 {tablet} suspended Amoxicillin 875 M G eCW1 ([facility]) Fluconazole 150 MG Oral Tablet [Diflucan] Diflucan 150 MG Di flucan 150 MG 11/03/2020 12:00:00 AM EDT 1.0 {tablet} active Diflucan 150 MG eCW1 ([facility]) Amoxicillin 875 MG Oral Tablet Amoxicillin 875 MG 11/03/2020 12:00: 00 AM EDT 1.0 {tablet} active Amoxicillin 875 MG eCW1 ([facility]) Fluconazole 150 MG Oral Tablet [Diflucan] Diflucan 150 MG Di flucan 150 MG 11/03/2020 12:00:00 AM EDT 1.0 {tablet} suspended Diflucan 150 MG eCW1 ([facility]) Amoxicillin 875 MG Oral Tablet Amoxicillin 875 MG 11/03/2020 12:00: 00 AM EDT 1.0 {tablet} active Amoxicillin 875 MG eCW1 ([facility]) Fluconazole 150 MG Oral Tablet [Diflucan] Diflucan 150 MG Di flucan 150 MG 11/03/2020 12:00:00 AM EDT 1.0 {tablet} active Diflucan 150 MG eCW1 ([facility]) 875 mg 11/03/2020 12:00:00 AM EDT tablet 20 TAKE ONE TABLET BY MOUTH TWICE A DAY TAKE ONE TABLET BY MOUTH TWICE A DAY SOLD: 11/03/2020 [facility] Amoxicillin 875 MG Oral Tablet Amoxicillin 875 MG 11/03/2020 12:00: 00 AM EDT 1.0 {tablet} suspended Amoxicillin 875 M G eCW1 ([facility] [facility]) Amoxicillin 875 MG Oral Tablet Amoxicillin 875 MG 11/03/2020 12:00: 00 AM EDT 1.0 {tablet} suspended Amoxicillin 875 M G eCW1 (Formerly [facility]) Fluconazole 150 MG Oral Tablet [Diflucan] Diflucan 150 MG Di flucan 150 MG 11/03/2020 12:00:00 AM EDT 1.0 {tablet} suspended Diflucan 150 MG eCW1 (Formerly [facility]) Amoxicillin 875 MG Oral Tablet Amoxicillin 875 MG 11/03/2020 12:00: 00 AM EDT 1.0 {tablet} active Amoxicillin 875 MG eCW1 (Formerly [facility]) Amoxicillin 875 MG Oral Tablet Amoxicillin 875 MG 11/03/2020 12:00: 00 AM EDT 1.0 {tablet} suspended Amoxicillin 875 M G eCW1 (Formerly [facility]) Fluconazole 150 MG Oral Tablet [Diflucan] Diflucan 150 MG Di flucan 150 MG 11/03/2020 12:00:00 AM EDT 1.0 {tablet} suspended Diflucan 150 MG eCW1 (Formerly [facility]) Amoxicillin 875 MG Oral Tablet Amoxicillin 875 MG 11/03/2020 12:00: 00 AM EDT 1.0 {tablet} suspended Amoxicillin 875 M G eCW1 (Formerly [facility]) Fluconazole 150 MG Oral Tablet fluconazole (DIFLUCAN) 150 MG tablet fluconazole (DIFLUCAN) 150 MG tablet 11/03/2020 12:00:00 AM EDT aborted TAKE 1 TABLET BY MOUTH TODAY REPEAT IN 3 DAYS [facility] Fluconazole 150 MG Oral Tablet [Diflucan] Diflucan 150 MG Di flucan 150 MG 11/03/2020 12:00:00 AM EDT 1.0 {tablet} suspended Diflucan 150 MG eCW1 ([facility]ly [facility]) Fluconazole 150 MG Oral Tablet [Diflucan] Diflucan 150 MG Di flucan 150 MG 11/03/2020 12:00:00 AM EDT 1.0 {tablet} active Diflucan 150 MG eCW1 ([facility]) Fluconazole 150 MG Oral Tablet [Diflucan] Diflucan 150 MG Di flucan 150 MG 11/03/2020 12:00:00 AM EDT 1.0 {tablet} suspended Diflucan 150 MG eCW1 ([facility]) Amoxicillin 875 MG Oral Tablet Amoxicillin 875 MG 11/03/2020 12:00: 00 AM EDT 1.0 {tablet} suspended Amoxicillin 875 M G eCW1 ([facility]) Fluconazole 150 MG Oral Tablet [Diflucan] Diflucan 150 MG Di flucan 150 MG 11/03/2020 12:00:00 AM EDT 1.0 {tablet} suspended Diflucan 150 MG eCW1 ([facility]) Amoxicillin 875 MG Oral Tablet amoxicillin (AMOXIL) 87 5 MG tablet amoxicillin (AMOXIL) 875 MG tablet 11/03/2020 12:00:00 AM EDT 875 mg Oral aborted Take 875 mg by mouth 2 (two) times a day [facility] 150 mg 11/03/2020 12:00:00 AM EDT tablet 2 TAKE 1 TABLET BY MOUTH TODAY, REPEAT IN 3 DAYS TAKE 1 TABLET BY MOUTH TODAY, REPEAT IN 3 DAYS SOLD: 0 11/03/2020 [facility] 40 mg 08/11/2020 12:00:00 AM EST capsule,delayed release (DR/EC) 60 TAKE ONE CAPSULE BY MOUTH TWICE A DAY TAKE ONE CAPSULE BY MOUTH TWICE A DAY SOLD: 08/15/2020 [facility] 40 mg 08/11/2020 12:00:00 AM EST capsule,delayed release (DR/EC) 60 TAKE ONE CAPSULE BY MOUTH TWICE A DAY TAKE ONE CAPSULE BY MOUTH TWICE A DAY SOLD: 10/15/2020 [facility] 40 mg 08/11/2020 12:00:00 AM EST capsule,delayed release (DR/EC) 60 TAKE ONE CAPSULE BY MOUTH TWICE A DAY TAKE ONE CAPSULE BY MOUTH TWICE A DAY SOLD: 12/10/2020 [facility] 40 mg 08/11/2020 12:00:00 AM EST capsule,delayed release (DR/EC) 60 TAKE ONE CAPSULE BY MOUTH TWICE A DAY TAKE ONE CAPSULE BY MOUTH TWICE A DAY SOLD: 02/16/2021 [facility] 40 mg 08/11/2020 12:00:00 AM EST capsule,delayed release (DR/EC) 60 TAKE ONE CAPSULE BY MOUTH TWICE A DAY TAKE ONE CAPSULE BY MOUTH TWICE A DAY SOLD: 04/18/2021 [facility] 25 mg 08/11/2020 12:00:00 AM EST tablet 30 TAKE ONE-HALF TABLET BY MOUTH WITH FOOD TWO TIMES A DAY TAKE ONE-HALF TABLET BY MOUTH WITH FOOD TWO TIMES A DAY SOLD: 10/27/2020 [facility] 25 mg 08/11/2020 12:00:00 AM EST tablet 30 TAKE ONE-HALF TABLET BY MOUTH WITH FOOD TWO TIMES A DAY TAKE ONE-HALF TABLET BY MOUTH WITH FOOD TWO TIMES A DAY SOLD: 08/15/2020 [facility] 25 mg 08/11/2020 12:00:00 AM EST tablet 30 TAKE ONE-HALF TABLET BY MOUTH WITH FOOD TWO TIMES A DAY TAKE ONE-HALF TABLET BY MOUTH WITH FOOD TWO TIMES A DAY SOLD: 11/21/2020 [facility] 20 mg 06/23/2020 12:00:00 AM EST tablet 90 TAKE ONE TABLET BY MOUTH EVERY DAY TAKE ONE TABLET BY MOUTH EVERY DAY SOLD: 06/25/2020 [facility] 20 mg 06/23/2020 12:00:00 AM EST tablet 90 TAKE ONE TABLET BY MOUTH EVERY DAY TAKE ONE TABLET BY MOUTH EVERY DAY SOLD: 09/29/2020 [facility] Potassium Chloride 10 MEQ Extended Release Oral Tablet POTAS SIUM CHLORIDE 06/23/2020 12:00:00 AM EST tablet extended release 90 TAKE ONE TABLET BY MOUTH EVERY DAY TAKE ONE TABLET BY MOUTH EVERY DAY SOLD: 06/25/2020 [facility] Potassium Chloride 10 MEQ Extended Relea se Oral Tablet potassium chloride (K- DUR) 10 MEQ tablet potassium chloride (K-DUR) 10 MEQ tablet 06/22/2020 12 :00:00 AM EST 10 meq Oral active Take 1 tablet (10 mEq total) by mouth daily [facility] rivaroxaban 20 MG Oral Tablet [Xarelto] XARELTO 20 MG TABS X ARELTO 20 MG TABS 06/22/2020 12:00:00 AM EST active TAKE ONE TABLET BY MOUTH EVERY DAY [facility] tizanidine 2 MG Oral Tablet TIZANIDINE HCL 06/16/2020 12:00:00 AM EST tablet 10 TAKE ONE TABLET BY MOUTH AT BEDTIME NEEDED TAKE ONE TABLET BY MOUTH AT BEDTIME NEEDED SOLD: 06/17/2020 [facility] 10 mg 06/16/2020 12:00:00 AM EST tablet 15 TAKE THREE TABLETS BY MOUTH EVERY DAY TAKE THREE TABLETS BY MOUTH EVERY DAY SOLD: 06/17/2020 [facility] Prednisone 10 MG Oral Tablet PredniSONE 10 MG PredniSONE 10 MG 06/16/2020 12:00:00 AM EST 3.0 {tablets} active P redniSONE 10 MG eCW1 ([facility]) tizanidine 2 MG Oral Tablet Tizanidine HCl 2 MG Tizanidine H Cl 2 MG 06/16/2020 12:00:00 AM EST 1.0 {tablet_as_needed} active Tizanidine HCl 2 MG eCW1 ([facility]) tizanidine 2 MG Oral Tablet Tizanidine HCl 2 MG Tizanidine H Cl 2 MG 06/16/2020 12:00:00 AM EST 1.0 {tablet_as_needed} active Tizanidine HCl 2 MG eCW1 ([facility]) Prednisone 10 MG Oral Tablet PredniSONE 10 MG PredniSONE 10 MG 06/16/2020 12:00:00 AM EST 3.0 {tablets} active P redniSONE 10 MG eCW1 ([facility]) 40 mg 04/27/2020 12:00:00 AM EDT capsule,delayed release (DR/EC) 30 TAKE ONE CAPSULE BY MOUTH 30 MINUTES BEFORE MORNING MEAL DAILY TAKE ONE CAPSULE BY MOUTH 30 MINUTES BEFORE MORNING MEAL DAILY SOLD: 06/10/2020 [facility] 40 mg 04/27/2020 12:00:00 AM EDT capsule,delayed release (DR/EC) 30 TAKE ONE CAPSULE BY MOUTH 30 MINUTES BEFORE MORNING MEAL DAILY TAKE ONE CAPSULE BY MOUTH 30 MINUTES BEFORE MORNING MEAL DAILY SOLD: 04/29/2020 [facility] 40 mg 04/27/2020 12:00:00 AM EDT capsule,delayed release (DR/EC) 30 TAKE ONE CAPSULE BY MOUTH 30 MINUTES BEFORE MORNING MEAL DAILY TAKE ONE CAPSULE BY MOUTH 30 MINUTES BEFORE MORNING MEAL DAILY SOLD: 07/14/2020 [facility] 20 mg 04/22/2020 12:00:00 AM EDT tablet 90 TAKE ONE TABLET BY MOUTH EVERY DAY TAKE ONE TABLET BY MOUTH EVERY DAY SOLD: 04/22/2020 [facility] 20 mg 04/22/2020 12:00:00 AM EDT tablet 90 TAKE ONE TABLET BY MOUTH EVERY DAY TAKE ONE TABLET BY MOUTH EVERY DAY SOLD: 09/23/2020 [facility] Furosemide 20 MG Oral Tablet furosemide (LASIX) 20 MG tablet furosemide (LASIX) 20 MG tablet 04/21/2020 12:00:00 AM EDT activ e TAKE ONE TABLET BY MOUTH EVERY DAY [facility] 25 mg 04/13/2020 12:00:00 AM EDT tablet 45 TAKE ONE-HALF TABLET BY MOUTH EVERY DAY TAKE ONE-HALF TABLET BY MOUTH EVERY DAY SOLD: 04/22/2020 [facility] Metoprolol Tartrate 25 MG Oral Tablet me toprolol tartrate (LOPRESSOR) 25 MG tablet metoprolol tartrate (LOPRESSOR) 25 MG tablet 04/12/2020 12:0 0:00 AM EDT 12.5 mg Oral aborted Take 0.5 tablets (12.5 mg total) by mouth daily [facility] Atenolol 100 MG Oral Tablet ATENOLOL 04/01/2020 12:00:00 AM EDT table t 30 TAKE ONE TABLET BY MOUTH EVERY DAY TAKE ONE TABLET BY MOUTH EVERY DAY SOLD: 04/04/2020 [facility] 10 mEq 12/15/2019 12:00:00 AM EDT tablet,ER particles/cry stals 90 TAKE ONE TABLET BY MOUTH EVERY DAY TAKE ONE TABLET BY MOUTH EVERY DAY SOLD: 06/25/2020 [facility] rivaroxaban 20 MG Oral Tablet rivaroxaban (XARELTO) 20 MG TABS rivaroxaban (XARELTO) 20 MG TABS 12/15/2019 12:00:00 AM EDT 20 mg Oral aborted Take 1 tablet (20 mg total) by mouth daily [facility] 20 mg 12/15/2019 12:00:00 AM EDT tablet 90 TAKE ONE TABLET BY MOUTH EVERY DAY TAKE ONE TABLET BY MOUTH EVERY DAY SOLD: 03/18/2020 [facility] Potassium Chloride 10 MEQ Extended Relea se Oral Tablet potassium chloride (K- DUR) 10 MEQ tablet potassium chloride (K-DUR) 10 MEQ tablet 12/15/2019 12 :00:00 AM EDT 10 meq Oral aborted Take 1 t ablet (10 mEq total) by mouth daily [facility] Polyethylene Glycol 400 4 MG/ML / Propyl kathy glycol 3 MG/ML Ophthalmic Solution Polyethyl Glycol-Propyl Glycol (SYSTANE ULTRA) 0.4-0.3 % SOLN Polyethyl Glycol- Propyl Glycol (SYSTANE ULTRA) 0.4-0.3 % SOLN 11/26/2016 12:00:00 AM EDT aborted SYSTANE ULTRA 0.4-0.3 % SOLN [facility] Ascorbic Acid 226 MG / Beta Carotene 143 20 UNT / cuprous oxide 0.8 MG / dl-alpha tocopheryl acetate 200 UNT / Zinc Oxide 34.8 MG Oral Capsule [PreserVision] Multiple Vitamins-Minerals (PRESERVISION AREDS) CAPS Multiple Vitamins-Minerals (PRESERVISION AREDS) CAPS 04/12/2015 12:00:00 AM EDT aborted PRESERVISION AREDS CAPS [facility] tizanidine 2 MG Oral Tablet tiZANidine (ZANAFLEX) 2 MG tablet tiZANidine (ZANAFLEX) 2 MG tablet 2 mg Oral aborted Take 2 mg by mouth as needed [facility] Insurance Providers Payer name Policy type / Coverage type Policy ID Covered alliance party ID Covered alliance party's relationship to lane Policy Lane Plan Information [facility] () Workers Compensation [id number] Self A [id number] MEDICARE [id number] xxxxxxxxxxx [id number] MEDICARE [id number] [facility] [id number] [place] Med[place] B [id number] Self [id number] MEDICARE A [id number] Self [id number] [employer] [place] (pr[facility] Medigap Part B [id number] Self [id number] [employer] Medicare Commercial [id number] Self [id number] [facility] Medigap Part B [id number] .[id number] Self [id number] [employer] Medigap Part B [id number] 2.16.840.1.321234.3.227.99.991.65305.0 Self [id number] [employer] Medigap Part B [id number] 2.16.840.1.597749.3.227.99.991.62078.0 Self [id number] [employer] Medigap Part B [id number] 2.16.840.1.489475.3.227.99.991.55362.0 Self [id number] [employer] Medicare Medigap Part B [id number] 2.16.840.1.628767.3.227.99.991.34724.0 Self [id number] [employer] Medigap Part B [id number] 2.16.840.1.863555.3.227.99.991.51732.0 Self [id number] [employer] Medigap Part B [id number] 2.16.840.1.849345.3.227.99.991.80367.0 Self [id number] MEDICARE COMPLETE [id number] [facility] [id number] xxxxxxxxxxx [id number] [facility] [id number] [facility] [id number] ANSI-Medicare Part B [id number] ANSI-Medicare Part B [id number] ANSI-Commercial [id number] ANSI-[employer] [id number] ANSI-Medicare Part B [id number] ANSI-Medicare Part B [id number] ANSI-Medicare Part B [id number] ANSI-Medicare Part B [id number] ANSI-Commercial [id number] [facility] Health Care [facility] Part B [id number]9.6619.88695.0 Self [id number] Medicare [place] Medicare Primary [id number] 2.16.840.1.931509.3.227.99.6619.17597.0 Self [id number] ANSI-Medicare Part B [id number] ANSI-Commercial [id number] ANSI-Medicare Part B [id number] ANSI-Medicare Part B [id number] ANSI-Medicare Part B [id number] ANSI-Commercial [id number] ANSI-Medicare Part B [id number] ANSI-Medicare Part B [id number] ANSI-Commercial [id number] ANSI-Medicare Part B [id number] ANSI-Medicare Part B [id number] ANSI-Commercial [id number] ANSI-Medicare Part B [id number] ANSI-Commercial [id number] ANSI-Medicare Part B [id number] [facility] Part B [id number] 2.0.1.655672.3.227.99.8646. 51008.0 Self [id number] [place]/[facility] Medicare Primary [id number] 2.0.1.622935.3.227.99.8646.19652.0 Self [id number] [facility] Part B [id number] 2.0.1.807833.3.227.99.104.538178.0 Self [id number] [place] Medicare Primary [id number] 2.0.1.367271.3.227.99.104.365479.0 Self [id number] [facility] [id number] 2.0.1.511469.3.227.99.936.09616.0 Self [id number] Medicare Dme Medigap Part B [id number] 2.0.1.271175.3.227.99 .936.72546.0 Self [id number] Medicare Medicare Primary [id number] 2.0.1.874795.3.227. 99.936.51462.0 Self [id number] [facility] Part B [id number] 2.0.1.42152 3.3.227.99.936.87778.0 Self [id number] ANS-Medicare Part B [id number] ANSI-Medicare Part B [id number] ANSI-Commercial [id number] ANSI-Medicare Part B [id number] ANSI-Medicare Part B [id number] ANSI-Commercial [id number] MEDICARE C [id number] S [id number] A ANSI-Commercial [id number] ANSI-Medicare Part B [id number] ANSI-Medicare Part B [id number] ANSI-Commercial [id number] ANSI-Medicare Part B [id number] ANSI-Medicare Part B [id number] MEDICARE [id number] A [facility] Medigap Part B [id number] 2.0.1.194158.3.227.99.8646. 72413.0 Self [id number] Medicare [place]/[facility] Medicare Primary [id number] 2.0.1.107697.3.227.99.8646.35165.0 Self [id number] [employer] [id number] 2.0.1.050087.3.227.99.936.74130.0 Self [id number] [facility] [id number] 2.0.1.695642.3.227.99 .936.51247.0 Self [id number] Medicare Medicare Primary [id number] 2.0.1.619043.3.227. 99.936.96423.0 Self [id number] [facility] [id number] .1.597836.3.227.99.991.58998.0 Self [id number] [place] Primary [id number] 2.0.1.981559.3.227.99.991.15259.0 Self [id number] [facility] [id number] 2..1.784480.3.227 .99.991.75250.0 Self [id number] [employer] [id number] 2..1.210146.3.227.99.936.64122.0 Self [id number] Medicare Dme Medigap Part B [id number] 2.16840.1.895626.3.227.99 .936.72299.0 Self [id number] Medicare Medicare Primary [id number] 2.16840.1.824715.3.227. 99.936.28599.0 Self [id number] [employer] [id number] 2.16840.1.634720.3.227.99.936.35925.0 Self [id number] Medicare [facility] Medigap Part B [id number] 2.16840.1.425005.3.227.99 .936.59518.0 Self [id number] Medicare Medicare Primary [id number] 2.840.1.723139.3.227. 99.936.89264.0 Self [id number] [facility] Healthcare Options Medigap Part B [id number] 2.840.1.837679.3.227.99.104.069494.0 Self [id number] [place] Medicare Primary [id number] 2.840.1.892756.3.227.99.104.637105.0 Self [id number] [employer] [id number] 2.840.1.165441.3.227.99.936.15134.0 Self [id number] Medicare Medicare Primary [id number] 2.840.1.566944.3.227. 99.936.96088.0 Self [id number] MEDICARE COMPLETE-UHC O [id number] S [id number] MEDICARE COMPLETE [id number] SP [id number] MEDICARE COMPLETE [id number] SP [id number] [employer] ([facility]) [employer] [id number] 2.840.1.112793.3.227.99.991.464279.0 Self [id number] MEDICARE COMPLETE-UHC O [id number] S [id number] [employer] [id number] 2.16840.1.140645.3.227.99.936.60883.0 Self [id number] MEDICARE [id number] SP [id number] H74 [employer]AR [employer] OPTIONS [id number] SP [id number] MEDICARE C [id number] S [id number] AARP O [id number] S [id number] [employer]AR [employer] CARE OPTIONS [id number] S [id number] [place] MED[place]ARE DIVISION [id number] S [id number] MEDICARE - [place] [id number] S [id number] [facility] MEDICARE [id number] S [id number] [facility] [id number] S [id number] AAR HE[employer] CARE OPTIONS [id number] S [id number] [facility] MEDICARE [id number] S [id number] [place] [employer] [id number] S [id number] ANSI-Commercial [id number] ANS-Medicare Part B [id number] ANSMedicare Part B [id number] [facility] Health Care [facility] Part B [id number] Self [id number] [place] Primary [id number] Self [id number] Problems, Conditions, and Diagnoses Code Display Name Description Problem Type Effective Dates Data Source(s) 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 Diagnosi s 04/26/2021 02:17:00 PM EDT [facility] E04.9 Nontoxic goiter, unspecified Nontoxic goiter, unspecif ied Diagnosis 04/26/2021 02:17:00 PM EDT [facility] R06.02 Shortness of breath Shortness of breath Diagnosis 0 11/08/2020 01:10:30 PM EDT [facility] Z68.36 Body mass index (BMI) 36.0-36.9, adult B lianet mass index (BMI) 36.0-36.9, adult Diagnosis 11/08/2020 01:10:30 PM EDT [facility] E66.09 Other obesity due to excess calories Oth er obesity due to excess calories Diagnosis 11/08/2020 01:10:30 PM EDT [facility] I71.2 Thoracic aortic aneurysm, without ruptur e Thoracic aortic aneurysm, without ruptur Diagnosis 11/08/2020 01:10:30 PM EDT [facility] I48.0 Paroxysmal atrial fibrillation Paroxysmal atrial fibri llation Diagnosis 11/08/2020 01:10:30 PM EDT [facility] I10 Essential (primary) hypertension Essential (primary) h ypertension Diagnosis 10/25/2020 10:12:32 AM EDT [facility] I49.5 Sick sinus syndrome Sick sinus syndrome Diagnosis 0 10/25/2020 10:12:32 AM EDT [facility] G56.02 [id number] Carpal tunnel syndrome, left Problem 04/18/2021 12:00:00 AM EDT eCW1 ([facility]) I71.2 [id number] Ascending aortic aneurysm Problem 04/18/2021 12:00:00 AM EDT eCW1 ([facility]) 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 Problem 04/18/2021 12:00:00 AM EDT eCW1 ([facility]) Z95.0 [id number] S/P cardiac pacemaker procedure Problem 02/09/2021 12:00:00 AM EDT eCW1 ([facility]) R06.09 [id number] Chronic dyspnea Problem 09/16/2020 12:00:00 AM EST eCW1 ([facility]) I11.9 [id number] Hypertensive heart disease without heart failure Problem 08/10/2020 12:00:00 AM EST eCW1 ([facility]) M79.676 Pain in limb Pain in limb Problem 08/09/2020 12:00:00 A M EST [facility] ([facility] [id number] Cardiac pacemaker in situ Cardiac pacemaker in situ Pr oblem 06/06/2020 12:00:00 AM EST [facility] ([facility] Cardiac Catheterization Asso ciates) I49.5 SSS (sick sinus syndrome) SSS (sick sinus syndrome) [id number] 05/20/2020 12:00:00 AM EST [facility] [id number] Sinus node dysfunction Sinus node dysfunction Problem 05/19/2020 12:00:00 AM EST [facility] ([facility] Cardiac Catheterization Asso ciates) [id number] Paroxysmal atrial fibrillation Paroxysmal atrial fibri llation Problem 05/19/2020 12:00:00 AM EST [facility] ([facility] Cardiac Catheterization Asso ciates) E05.90 [id number] Hyperthyroidism Problem 04/22/2020 12:00:00 AM EDT eCW1 ([facility]) I49.5 [id number] Tachy-julio cesar syndrome Problem 04/22/2020 12:0 0:00 AM EDT eCW1 ([facility]) I48.92 [id number] Paroxysmal atrial flutter Problem 04/22/2020 12:00:00 AM EDT eCW1 ([facility]) Surgeries/Procedures Procedure Description Date Indications Data Source(s) EXCISION NAIL MATRIX PERMANENT REMOVAL 03/30/2021 12:0 0:00 AM EDT [facility] ([facility] OFFICE OUTPATIENT VISIT 10 MINUTES 03/03/2021 12:00:00 AM EDT [facility] ([facility] LARYNGOSCOPY FLEXIBLE FIBEROPTIC DIAGNOSTIC 01/30/2021 12:00:00 AM EDT [facility] ([facility] ) OFFICE OUTPATIENT VISIT 25 MINUTES 01/30/2021 12:00:00 [facility] Med: Derm 1% Lidocaine with Epinephrine Injection Intr adermally to marked areas 01/20/2021 12:00:00 AM EDT eCW1 ([facility]) OFFICE OUTPATIENT VISIT 15 MINUTES 12/23/2020 12:00:00 AM EDT [facility] ([facility] ) DEBRIDEMENT NAIL ANY METHOD /> 12/23/2020 12:00:00 AM EDT [facility] OFFICE OUTPATIENT VISIT 10 MINUTES 12/23/2020 12:00:00 AM EDT [facility] ([facility] OFFICE OUTPATIENT VISIT 25 MINUTES 12/19/2020 12:00:00 AM EDT [facility] ([facility] ) Bronchospasm Evaluation 12/09/2020 12:00:00 AM EDT [facility] Plethysmography Determination Lung Volumes & Per Airway Resi st 12/09/2020 12:00:00 AM EDT [facility] ([facility], ) DIFFUSING CAPACITY 12/09/2020 12:00:00 AM EDT [facility] ECG ROUTINE ECG W/LEAST 12 LDS W/I&R <td>POCT AMB EKG</td><td>Routine</td><td>11/21/2020 5:34 PM EDT</td><td> Shortness of breath</td><td> </td> 11/21/2020 05:34:00 PM EDT Shortness of breath [facility] Shortness of breath BLOOD COUNT COMPLETE AUTOMATED <td>CBC</td><td>Routine</td><td>11/21/2020</td><td> Shortness of breath</td><td> </td> 11/21/2020 12:00:00 AM EDT Shortness of breath [facility] Shortness of breath Spirometry 11/15/2020 12:00:00 AM EDT M JENNIF[facility] ([facility], ) OFFICE OUTPATIENT VISIT 25 MINUTES 11/15/2020 12:00:00 AM EDT [facility] ([facility] ) POCT AMB EKG <td>POCT AMB EKG</td><td>Rou monica</td><td>11/08/2020 7:22 PM EDT</td><td> Paroxysmal atrial fibrillation</td><td> </td> 11/08/2020 07:22:00 PM EDT Paroxysmal atrial fibrillation [facility] Paroxysmal atrial fibrillation POCT AMB EKG <td>POCT AMB EKG</td><td>Rou monica</td><td>10/25/2020 5:52 PM EDT</td><td> Paroxysmal atrial fibrillation</td><td> </td> 10/25/2020 09:52:00 PM EDT Paroxysmal atrial fibrillation [facility] Paroxysmal atrial fibrillation DEBRIDEMENT NAIL ANY METHOD 10/07/2020 12:00:00 AM EDT [facility] ([facility] THYROID STIMULATING HORMONE TSH <td>TSH</td><td>Routine</td><td>08/10/2020</td><td></td><td> </td> 08/10/2020 12:00:00 AM EST [facility] BASIC METABOLIC PANEL CALCIUM TOTAL <td>BASIC METABOLI C PANEL</td><td>Routine</td><td>08/10/2020</td><td></td><td> </td> 08/10/2020 12:00:00 AM EST [facility] DEBRIDEMENT NAIL ANY METHOD 07/29/2020 12:00:00 AM EST [facility] ([facility] ECG ROUTINE ECG W/LEAST 12 LDS W/I&R <td>POCT AMB EKG</td><td>Routine</td><td>06/22/2020 3:00 PM EST</td><td> Paroxysmal atrial fibrillation</td><td> </td> 06/22/2020 08:00:00 PM EST Paroxysmal atrial fibrillation [facility] Paroxysmal atrial fibrillation PM Programming Dual 06/06/2020 12:00:00 AM EST [facility] ([facility]) BLOOD COUNT COMPLETE AUTOMATED <td>CBC</td><td>Routine</td><td>05/24/2020</td><td></td><td> </td> 05/24/2020 12:00:00 AM EST [facility] Electrocardiogram Complete 05/19/2020 12:00:00 AM EST [facility] ([facility]) LARYNGOSCOPY FLEXIBLE FIBEROPTIC DIAGNOSTIC 05/02/2020 12:00:00 AM EDT [facility] ([facility] LIPID PANEL <td>LIPID PANEL</td><td>Rout ine</td><td>03/31/2020</td><td></td><td> </td> 03/31/2020 12:00:00 AM EDT [facility] THYROID STIMULATING HORMONE TSH <td>TSH</td><td>Routine</td><td>03/30/2020</td><td></td><td> </td> 03/30/2020 12:00:00 AM EDT [facility] THYROXINE FREE <td>T4, FREE</td><td>Routine </td><td>03/30/2020</td><td></td><td> </td> 03/30/2020 12:00:00 AM EDT [facility] THERAPEUTIC PX 1/> AREAS EACH 15 MIN EXERCISES 020 12:00:00 AM EDT [facility] ([facility]) THERAPEUTIC PX 1/> AREAS EACH 15 MIN EXERCISES 12:00:00 AM EDT [facility] ([facility]) Results ID Date Data Source [id number] 04/26/2021 02:18:00 PM EDT [facility] ([facility]) Name Value Range Interpretation Code Description Data Maggie rce(s) Supporting Document(s) Surgical Pathology Consult Laboratory test result [facility] ([facility]) Surgical Pathology Report Name: BERNY NAYAK Collection Date: 04/26/2021 00:00 Received Date: 04/26/2021 14:20 Physician(s): GREGORY NICK MD ADJAPONG, OPOKU, MD Specimen(s) Received A: Material received for consultation, [facility], [id number], [facility] Clinical History 80-year-old woman with thyroid goiter an d left false vocal cord lesion. Diagnostic consultation. Diagnosis LARYNX, LEFT FALSE VOCAL CORD, BIOPSY ([id number], 04/20/21): SEVERE SQUAMOUS DYSPLASIA. (SEE MICROSCOPIC DESCRIPTION). 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 [...] Adenomatoid nodule(s) or nodular follicular disease CAP [facility] August 2019 Annual Release Electronically Signed By Rios Riley M.D., Attending Pathologist 04/27/2021 15:29:28 Gross Description Received from [facility] in [place], [place] are 7 H and E stained slides and 6 paraffin blocks, labeled [id number] (A, B1, B2, B3, B4, B5), with [...] developed and their performance characteristics determined by [facility] Pathology department. They have not been cleared or approved by the US Food and Drug Administration. The FDA has determined that such clearance or approval is not necessary. 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 Diagnostic consultation.DiagnosisLARYNX, LEFT FALSE VOCAL CORD, BIOPSY ([id number], 04/20/21): SEVERESQUAMOUS DYSPLASIA. 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 (SEE SYNOPTIC REPORT)Synoptic Report:Specimen Procedure: Right lobectomyTumor Tumor Focality: Unifocal Tumor Characteristics Tumor Site: Right lobe Histologic Type: Papillary carcinoma, follicular variant,encapsulated / well demarcated, non-invasive Histologic Type Comments: The tumor is a well-circumscribed,unencapsulated follicular neoplasm with a microfollicular pattern anddiffuse nuclear features of papillary carcinoma. There is also a 3.0 mmfocus of a nearly-solid component with marked nuclear atypia, loss ofcharacteristic nuclear features of PTC, diffuse apoptosis, up to 4 mitosesper 10 HPF and rare atypical mitotic figures. Tumor Size: Cannot be determined - unclear in outside grossdescription. Extrathyroidal Extension: Not identified Angioinvasion (vascular invasion): Not identified Lymphatic Invasion: Not identified Margins: Uninvolved by carcinomaLymph Nodes Regional Lymph Nodes: No lymph nodes submitted or foundPathologic Stage Classification (pTNM, AJCC 8th Edition) Primary Tumor (pT): pTX Regional Lymph Nodes (pN): pNXAdditional Findings Additional Findings: Adenomatoid nodule(s) or nodular folliculardisease CAP [facility] August 2019 Annual Release Electronically Signed By Rios Riley M.D., Attending Eudpnfwnxcj49/14/2021 15:29:28 Gross DescriptionReceived from [facility] in [place], [place] are 7 H and Estained slides and 6 paraffin blocks, labeled [id number] (A, B1, B2, B3, B4,B5), with the corresponding pathology report. Microscopic DescriptionI have reviewed the slides from a left vocal cord lesion and a rightthyroid lobectomy on the above captioned patient. The vocal cord biopsy consist of fragments of respiratory mucosa with withfocal severe squamous dysplasia. This is associated with moderate chronicinflammation, oncocytic metaplasia and focal marked dilatation ofsubmucosal glands. The thyroid lobectomy specimen shows an unencapsulatedwell-circumscribed nodule with a microfollicular pattern and diffusenuclear features of papillary carcinoma. The latter are seen throughoutthe nodule and consists of nuclear enlargement, overlapping, clearing,grooving and rare intranuclear inclusions. There is no evidence ofpapillae, invasion into the surrounding stroma, or vascular invasion.There is, however, a 3.0 mm. nearly solid component with marked nuclearatypia (loss of PTC features), extensive apoptosis, up to 4 mitoticfigures in 10 HPF and a few atypical mitoses (slide B5). I cannotdetermine the size of the tumor based on the gross description ormicroscopic sections. The parenchyma outside of nodule shows evidence ofnodular hyperplasia. 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 While the solidcomponent represent less than 5% of the tumor, a mitotic count of morethan 3 mitoses per 10 HPF should exclude the diagnosis of NIFTP. Ibelieve this tumor should be regarded and managed as anencapsulated/well-circumscribed follicular variant of papillary carcinoma. Thank you for letting me see this case in consultation.This report may include one or more immunohistochemical stain results thatuse analyte specific reagents. All positive and negative controls havebeen reviewed by the attending pathologist and are satisfactory. The testswere developed and their performance characteristics determined by [facility] Pathology department. They have not been cleared or approved by the USFood and Drug Administration. The FDA has determined that such clearanceor approval is not necessary. Name Value Range Interpretation Code Description Data Maggie rce(s) Supporting Document(s) ID Date Data Source [id number] 01/09/2021 07:19:00 AM EDT [facility] ([facility]) Name Value Range Interpretation Code Description Data Maggie rce(s) Supporting Document(s) Microscopic observation [Identifier] in Unspecified specimen by Non- gynecological cytology method Laboratory test result [facility] ([facility]) SPECIMEN: FNA Left lower isth mus/labeled left thyroid SPECIMEN ADEQUACY: Satisfactory for evaluation CATEGORIZATION: Benign DESCRIPTIONS: Scattered follicular cells noted in a background of hemosiderin laden macrophages, and scattered lymphocytes. COMMENTS: 01/10/2021942 Signed BRADLEY CRISTINA(ASCP) 01/10/202143 (Prelim) Signed KINGA DAVIS MD 01/10/2021 1356 ID Date Data Source [id number] 01/09/2021 07:18:00 AM EDT [facility] ([facility]) Name Value Range Interpretation Code Description Data Maggie rce(s) Supporting Document(s) Microscopic observation [Identifier] in Unspecified specimen by Non- gynecological cytology method Laboratory test result [facility] ([facility]) SPECIMEN: FNA Right middle is thmus/labeled right thyroid Specimen receiced in Cytolyt (light pink)/AFIRMA SPECIMEN ADEQUACY: Satisfactory for evaluation CATEGORIZATION: Benign DESCRIPTIONS: Rare follicualr groups noted in a background of hemosiderin laden macrophages and scattered lymphocytes. COMMENTS: 01/10/2021938 Signed BRADLEY CRISTINA(ASCP) 01/10/2021 0936 (Prelim) Signed KINGA DAVIS MD 01/10/2021 1356 ID Date Data Source [id number] 01/09/2021 07:15:00 AM EDT [facility] ([facility]) Name Value Range Interpretation Code Description Data Maggie rce(s) Supporting Document(s) Microscopic observation [Identifier] in Unspecified specimen by Non- gynecological cytology method Laboratory test result [facility] ([facility]) SPECIMEN: FNA Right middle is thmus/labeled right thyroid Cyotlyt (light pink) and AFIRMA brush received SPECIMEN ADEQUACY: Satisfactory for evaluation CATEGORIZATION: Benign DESCRIPTIONS: Reactive follicular cells noted in a backgound of scattered lymphocytes. COMMENTS: 01/10/2021 - 0947 Signed BRADLEY CRISTINA(ASCP) 01/10/2021 0948 (Prelim) Signed KINGA DAVIS MD 01/10/2021 1356 ID Date Data Source [id number] 12/30/2020 01:58:00 PM EDT [facility] ([facility]) Name Value Range Interpretation Code Description Data Maggie rce(s) Supporting Document(s) Parathyrin.intact [Mass/volume] in Serum or Plasma 70.0 pg/mL 18.5-88.0 Normal (applies to non-numeric results) [facility] ([facility]) ID Date Data Source [id number] 12/30/2020 01:58:00 PM EDT [facility] ([facility]) Name Value Range Interpretation Code Description Data Maggie rce(s) Supporting Document(s) Thyroglobulin Quantitative 1417.7 ng/mL 1.5-38.5 Above high normal [facility] ([facility]) Specimen was diluted in order to obtain results. Results were repeated. . [...] 0.1 ng/mL . Thyroglobulin measured by [facility] [place] Immunometric Assay Performed at: RN - [facility] [address] [id number] Adjunct Latin Professor: Ariana Hutchison MD, Phone: [phone] Thryoglobulin Antibodies ([facility]ios) Laboratory test result 0.0-0.9 Normal (applies to non-numeric results) [facility] ([facility] ) Thyroglobulin Antibody measured by [employer] Method[employer] ID Date Data Source [id number] 12/30/2020 01:58:00 PM EDT [facility] ([facility]) Name Value Range Interpretation Code Description Data Maggie rce(s) Supporting Document(s) Triiodothyronine (T3) Free [Mass/volume] in Serum or Plasma 3.1 pg/mL 2.2-4.0 Normal (applies to non-numeric results) [facility] ([facility]) Calcium.ionized [Mass/volume] in Serum o r Plasma by Ion-selective membrane electrode (ISE) 4.8 mg/dL 4.5-5.3 Normal (applies to non-numeric results ) [facility] ([facility]) ID Date Data Source [id number] 12/30/2020 01:58:00 PM EDT [facility] ([facility]) Name Value Range Interpretation Code Description Data Maggie rce(s) Supporting Document(s) Free T4 0.79 ng/dL 0.76-1.46 Normal (applies to non-numeric resul ts) [facility] ([facility]) Thyroid Stimulating Hormone 0.295 uIU/ML 0.358-3.740 Below low normal [facility] ([facility]) ID Date Data Source [id number] 12/09/2020 02:58:00 PM EDT [facility] ([facility]) Name Value Range Interpretation Code Description Data Maggie rce(s) Supporting Document(s) Misc Laboratory test result [facility] ([facility]) ID Date Data Source [id number] 12/02/2020 08:12:23 AM EDT [facility] Name Value Range Interpretation Code Description Data Maggie rce(s) Supporting Document(s) &PDF [facility] HRFXQd2aDkBNZlDi08/AFArwDKBbo3JbYLpsWCs8YYlsQTRoF2IyeEtkYFPMK4DEASuCDUWtUnHvPLQd waW [file] POWERHOUSE OILER/95jzlEj08ZjOCUAERf0cUcFphhJSDxINLBuI6Fo [file] ICAgICAgICAgICAgICAgICAgICAgICAgICAgICAgIC AgICAgICAgICAgICAgICAgDQogICAgICAgICAgICAgICAgICAgICAgICAgICAgICAgICAgICAgICAgIC AgICAgICAgICAgICAgICAgICAgICAgICAgICAgICAgICAgICAgICAgICAgICAgICAgICAgICAgICAgDQ ogICAgICAgICAgICAgICAgICAgICAgICAgICAgICAg ICAgICAgICAgICAgICAgICAgICAgICAgICAgICAgICAgICAgICAgICAgICAgICAgICAgICAgICAgICAg ICAgICAgICAgDQogICAgICAgICAgICAgICAgICAgICAgICAgICAgICAgICAgICAgICAgICAgICAgICAg ICAgICAgICAgICAgICAgICAgICAgICAgICAgICAgIC AgICAgICAgICAgICAgICAgICAgDQogICAgICAgICAgICAgICAgICAgICAgICAgICAgICAgICAgICAgIC AgICAgICAgICAgICAgICAgICAgICAgICAgICAgICAgICAgICAgICAgICAgICAgICAgICAgICAgICAgIC AgDQogICAgICAgICAgICAgICAgICAgICAgICAgICAg ICAgICAgICAgICAgICAgICAgICAgICAgICAgICAgICAgICAgICAgICAgICAgICAgICAgICAgICAgICAg ICAgICAgICAgICAgDQogICAgICAgICAgICAgICAgICAgICAgICAgICAgICAgICAgICAgICAgICAgICAg ICAgICAgICAgICAgICAgICAgICAgICAgICAgICAgIC AgICAgICAgICAgICAgICAgICAgICAgDQogICAgICAgICAgICAgICAgICAgICAgICAgICAgICAgICAgIC AgICAgICAgICAgICAgICAgICAgICAgICAgICAgICAgICAgICAgICAgICAgICAgICAgICAgICAgICAgIC AgICAgDQogICAgICAgICAgICAgICAgICAgICAgICAg ICAgICAgICAgICAgICAgICAgICAgICAgICAgICAgICAgICAgICAgICAgICAgICAgICAgICAgICAgICAg ICAgICAgICAgICAgICAgDQogICAgICAgICAgICAgICAgICAgICAgICAgICAgICAgICAgICAgICAgICAg ICAgICAgICAgICAgICAgICAgICAgICAgICAgICAgIC WuZXCoYUGhZPBtFARjMLKxFUHbTWEyFWKvXFh5X4agARQhGZErIX8tGDu8Mv4+PGaNXdHwFIB9ltVkiT 3PPH1yj0KgHYioYQRbj9DqGRc9JJ7ICUBiILsyDL0QUPmdzb5YXKAvVCBvwTTTj3brRwNtTWW2VQYrYt qwTY6GFMFnE5vhktQiMRSxFZWYURjhWVCRLN2BOuFk B8QqvW35EZQWAy1+XOjxmcLaAifEWhY9KTLvp0ZwQQg3ZG4KILDmMFrnNW2NBIEbtZ3wETtjEV7GRsGp YuDoQBEEShSaM88ijHKnSGk3S1ByGtTpBDFhUewfDKXuNGutFdQvHRWcFyYeMPolAS0+ID4+RXogHB2S BCukyhLxDSPyKy5EXEKtJTH5HJFihISkTdLxQWDDIP ieZH8UkWVuGFX0tF2bHDsdSTPyVPXkM6cBPkDggNomWG14mAdqplHinLYmQHa+Hs4NIV7sj1GgPIr8oi PzHVlqKCB8STnpZFZeJGGaDIIbMTW3JCT4FLVJLiPiSUHqPMZuVOleZLStTWYuxv7UDFZbITPjEkC4GB HqCNSdEOXhIYcxMAUpPSG6BId9HASfVTBfCY3OAuJi NHCfPCEhTWmqFWBaXSLxxw0XUYMzZSUgKHSzJzXnMFXuMYCoDZikXOUqNUW7OkGuTPDpKAGaEG6VEdFs LFBeOTgnAfGaIQNcZJVopd6KMWAnPNPgOqJ9HLXyEQEvXPCzGRvfWHRbGZI7PFA3AEZaBCPuZD6DPkLq AWEhWBc6XsHnXDMmEOMdak0FZKNdJPRzTJxtPuQxDN TpKCUzLCimBLCkJXM9KyL0BOLySXOgDP3GUlGgITMfDXd5EnfjFGQaLTZcyp2VDUXbDUDoZDP7NIGfKE PcUNMvKCxqKCGxTXRvWEGzHHJbOOAxDF8ZAuJaXVFfJFAmKLBfAOBpXOHftj9LYYVxKPBmXSS7HVNoEG UpOTHaNLbsNXJkWTAhXOO0GPXkOVBpLG9PRsGbRDUp RVT4UHygUJFjCNSahw9FFDMaLDHgTbm7GqMdLDLjJFSyTOexXZXeBWLhFURsIGJsWZCxSY8IJpRnQUJr KDQ0KkYzPHKjNPJyhm5ECYAhXYJwIva2SGEqHADlWDSoOXeiXUCpPCT3VEC0VOOaIHXtVP8EUnVrOKXn JDRdDoKzOPGmHSMkrl4PIQJbRDRnREH3GADbRCPaIP MeIRqmHUEbHNK8FFQzMKWmEEVkIJ0DPeFxBVLjUWErRVGbBDNaJLYlry7SJAQaIAGaTJSjOtPfPXYjUA NcOUpuHPIuIQU4FJV2ZOFuPTXfDK8FPlMwIHIeVXT5IfQpEKBrLZDwbh9NVSNfVNJlMwKzJRIqEFWsAI LmDGevQMNkBQJ1FlC4DQDrIDWvWV9EVmZiKONrFNzo RHEpVEEtVLZhja8FvRDnhNxxmn4LVSqSJk6GeQfqEQV0SMjzLe7flTGiKQWaSBPICm4CnvPfOUWcTUMD YHitPPEeYWcgRhSsXmCaEDYwVKo8ZwKsDpTjBUIdJMYwJES9XNR5TeA2RMPqYcAvPKK0S9G5Ruf0XSYh OYW9R2EuOdK9IKp0PJT+PF6hTNt+Ek6Qs5AnpzH4ckHlWZqlHKY5EH9SUGDNZ9RTVo== ID Date Data Source [id number] 11/15/2020 12:57:00 PM EDT [facility] ([facility]) Name Value Range Interpretation Code Description Data Maggie rce(s) Supporting Document(s) PDFReport Laboratory test result [facility] ([facility]) FVC-Pre 1.45 L [facility] ([facility]) FVC-%Pred-Pre 54 L [facility] ([facility]) FVC-Pred 2.65 L [facility] ([facility]) FVC-LLN 1.93 L [facility] ([facility]) Fev1-Pred 1.97 L [facility] ([facility]) Fev1-Pre 1.26 L [facility] ([facility]) Fev1-%Pred-Pre 64 L [facility] ([facility]) Fev1-LLN 1.36 L [facility] ([facility]) Fev6-Pred 2.50 L [facility] ([facility] ) Fev6-Pre 1.45 L [facility] ([facility]) Fev6-%Pred-Pre 58 L [facility] ([facility]) Jmn2lkn-Rhx 87 % [facility] ([facility]) Fev6-LLN 1.80 L [facility] ([facility]) Dag6rep-Erxt 73 % [facility] ([facility]) Fnt2lcb-Bxky 94 % [facility] ([facility]) Arb6wps-LKR 64 % [facility] ([facility]) Qtq5iqw-%Pred-Pre 118 % [facility] ([facility]) Hhj5gzd-%Pred-Pre 105 % [facility] ([facility]) FEFMax-Pred 4.75 L/E/sec [facility] ([facility]) Mhh3mjw-Pzk 100 % [facility] ([facility]) FEFMax-LLN 2.98 L/E/sec [facility] ([facility]) FEFMax-Pre 5.30 L/E/sec [facility] ([facility]) FEFMax-%Pred-Pre 111 L/E/sec [facility] ([facility]) Fve2448-%Pred-Pre 123 L/E/sec [facility] ([facility]) Uff6001-SJT 0.08 L/E/sec [facility] ([facility]) Lny9009-Bcfb 1.36 L/E/sec [facility] ([facility]) Gcn1798-Rmi 1.69 L/E/sec [facility] ([facility]) ExpTime-Pre 5.89 sec [facility] ([facility]) Roi2lii3-Iffh 77 % [facility] ([facility]) Dzq4otm9-Zvz 87 % [facility] ([facility]) Rnw0eqt6-AWW 68 % [facility] ([facility]) Bmq8dcx5-%Pred-Pre 112 % [facility] ([facility], ) ID Date Data Source [id number] 11/09/2020 08:27:54 PM EDT [facility] Name Value Range Interpretation Code Description Data Maggie rce(s) Supporting Document(s) FREE THYROXINE @ 0.99 ng/dL (0.76-1.46) [facility] ID Date Data Source [facility] 11/03/2020 12:00:00 AM EDT eCW1 ([facility]) Name Value Range Interpretation Code Description Data Maggie rce(s) Supporting Document(s) Laboratory studies (set) [facility] eCW1 ([facility]) ID Date Data Source [id number] 09/30/2020 11:23:23 AM EDT [facility] Name Value Range Interpretation Code Description Data Maggie rce(s) Supporting Document(s) &PDF [facility] LLWJCz7mZtKQArAx61/UNGbuTZJkq8TpWGmuQYv4LVcyCPUxS2KnnAgjFJULL8UZGBxKJWJwYqNyUXRq waW [file] ICAgICAgICAgICAgICAgICAgICAgICAgICAgICAgICAgICAgICAgICAgICAgICAgICAgICAgICAgICAg MQHuPSIeURNdEI4AUTTlACHmYPScNQDvVXMxFFTvWP AgICAgICAgICAgICAgICAgICAgICAgICAgICAgICAgICAgICAgICAgICAgICAgICAgICAgICAgICAgIC PsQSGoOZWyPYVpPAMwHBQwZYUtMS9WATVfQUGaUHApICKxXPKrPTBwLMYzNLWzDEJzWUHeUMZyGZCyWI AgICAgICAgICAgICAgICAgICAgICAgICAgICAgICAg BCEwFWRaOOKlYMUhLZUnVIMuCOLeYEUeIJRjOWSeOS2HEUHoMOLxVZRvZIZwCRPoSISlBDElDCPpRRZu ICAgICAgICAgICAgICAgICAgICAgICAgICAgICAgICAgICAgICAgICAgICAgICAgICAgICAgICAgICAg YSZuZAKrKIUeGACoKS9DJFDeNQHeUYKnWAUcIXLcDC AgICAgICAgICAgICAgICAgICAgICAgICAgICAgICAgICAgICAgICAgICAgICAgICAgICAgICAgICAgIC CkGRMjIPJbGPYyMMLdLSLbPVIeSFVwWK8LGCHvYWAnMGBmWMBaUGHoONTcKJAuMQAtTHUbKJBtLQXwNF AgICAgICAgICAgICAgICAgICAgICAgICAgICAgICAg CIErYMTiUHDgGKMwDGSiLHCaFKZtCUWxXRSqXGGlUZWdUH7YQKKwODCvJNLbGSGlKVMqJZTaBNDjNUXs ICAgICAgICAgICAgICAgICAgICAgICAgICAgICAgICAgICAgICAgICAgICAgICAgICAgICAgICAgICAg KHBbQWKvYRNpBNOxHELlZD8ONZNkQWBvHOIzFYBaCF AgICAgICAgICAgICAgICAgICAgICAgICAgICAgICAgICAgICAgICAgICAgICAgICAgICAgICAgICAgIC BlDATaLIWpYAGjLQObJZMmIYQqHGPaJLKdTP4ABIBfLZQzYIUkEXNiOFYiSBKhYCCbQSEkFLJlBWNeFF AgICAgICAgICAgICAgICAgICAgICAgICAgICAgICAg PQTsAGYvLAXtOYRaNLZtZNVlQVRcBAGzIPBwZBZpAYJaQLDqAH7XRSQkAIDhMQOrGYEcZBYaENKxMAZl ICAgICAgICAgICAgICAgICAgICAgICAgICAgICAgICAgICAgICAgICAgICAgICAgICAgICAgICAgICAg OWNxGARkJGWqIJPuFTVbAXXkWU8ZWK44tVBtl3R4SD CwQM5duvb/Lz2UOHynmnBubCCyRP3OAtGyMR2ctz2HPlFePJ8wps4XRAtUEiNzU6T3jPBpVRHyDKHAMn NwQ25xIVgqNl85WJdgKJIqXbJhAYu3Rp9CRpHhF3tjYJCvArG2PDSvXnLpJBdwNR3Qz4LxwUYmPYy+Pg 6OZB9bx7KwNEmpPYRvDN9jdy8KMFdNZlWgF2L6hQQl V5C7YJcoMf4ZYETnHCEeTCdjGILBOHsaKA2UIM3vamW2MQ1GeVFkKCXmFUTeyHQfVIg5U38cpTHiHYtm MX9BDZE+Sherry+Ut2ORPHgZQHmBYZwTuWoLXETKoKnT96vfNCuTWNpGQS6AVOaUn1PHODdR0ObcmHszWth imRiCFKmLNQINE6SXXlhflVtxWHhvCtlJT00cQarIW 4VRr6EXwVmKS5wce9GbRQsLq0AFUXlZL3OLXFgEFEoBMYuXPY9FUTiEjQqVYyoKFYsESUoHAP3MJBlFF NdZS5BFgEnKYIaBJF7HKNqIEUbVURfqp6XUYNeGONqDxI9OYSoTIPaMZPlQJjaCOYmOLNcMVc7ROLwPD VtFX8KTiOrDPItNLD8LEBgBOWyGEWiei7VFMLcWMOf Lfj2ZRFwPMUhLJFeRZvlIFHzTNNrHHW6VLGzNFWdDP0PYgRjOVPvQCGnNVTgLDAzJMOllz0TTJMtRQFs WKY0VdCtDPEnEJRsQRflJOPfABL0LlViNSApGTPgLW4XVbLjQWGoRVI2DUVmDKMgZYQwnx9VELWuDBOy WNDlJFHvWDCuAWTdTIfhPHMpILG3GLz1ERSbOGQpLX 7ASbVySGMfFOG2RZfxFMYvJJFqgr5YNUPkPFRyUiw9JVAaJFGjWVExEEcrIHQoCWHeJlT1JSKqLRIcWD 7UUuCfZICeSQT5LMLkXAEmRAZshg5YAUIdKIOgOrTqPBEfZCBjAUKgTYmdZRXmUWT1UZTdODBcXRMnNY 1BBpUeHQoaVVEDIcz8LRlhO7f7TRQxZG3FN8Pys7Id GIbqGYYZYWnnLE7pdyHsYYGfBt7DN1tAZkt2VRF3EddxEpOrXHOpOIC0KtBgXLR8CKV2MFDiSuOhCF2k KTj8TTZrNTKxIYRtB2HyTwrdEEHeNJyvBOk0ZrW5DJShJaDaLI8QAn7LTrB3ESI3bBUtHe5AAZd3EskJ JkEeXZ8BBDh= ID Date Data Source FREE T4 & TSH PANEL 08/10/2020 12:00:00 AM EST [email or web address] (Formerly [facility], [facility]) Name Value Range Interpretation Code Description Data Maggie rce(s) Supporting Document(s) 0.354 0.358-3.740 THYROID STIMULATING HORM ONE eCW1 (Formerly [facility]) 0.82 0.76-1.46 FREE T4 eCW1 ([facility]) ID Date Data Source FREE T3 08/10/2020 12:00:00 AM EST [email or web address] (Formerly [facility], [facility]) Name Value Range Interpretation Code Description Data Maggie rce(s) Supporting Document(s) 3.0 2.2-4.0 [facility] ([facility]) ID Date Data Source [id number] 07/02/2020 10:41:48 AM EST [facility] Name Value Range Interpretation Code Description Data Maggie rce(s) Supporting Document(s) &PDF [facility] LSNIIx0yIoXHBkGm75/RCOskPQCgj3RzMJdlWSa8KCkxPNEeY0XvbZdzNLFDB4RIIPgCUVJsWiOlQVXk [facility] [file] [id number]= ID Date Data Source [id number] 05/30/2020 03:48:06 PM EST [address] [id number] Name: BERNY LOPEZ: 1940Sex: FOrdering Provider: Veronica Websterhoheike Prov: Veronica GUERRARefpaulina Provider: Procedure Performed: XR CHEST PORTABLEExam Date: 05/30/2020 15:43MRN: [id number] Number: [id number] Class: OutpatientAccount #: [id number] for Exam: ppmTechnique: AP portable view obtained.Comparison: NoneFindings: A pacer device overlies the left hemithorax with 2 leads overlying the cardiac silhouette. No pneumothorax is seen. Cardiomegaly is seen with interstitial prominence in the lower lobes suggestive of mild edema. Mild vascular redistribution is seen. No pleural effusion is seen. The bony thorax is intact. EKG leads and wires overlie the thorax.IMPRESSION: 1. No pneumothorax status post pacer placement.2. Cardiomegaly with probable mild the special edema.Report electronically signed by: KELLEN VALENCIA On 05/30/2020 3:48 PMWorkstation ID: [id number] Name Value Range Interpretation Code Description Data Maggie rce(s) Supporting Document(s) ID Date Data Source [id number] 05/30/2020 03:24:26 PM EST [facility] Name Value Range Interpretation Code Description Data Maggie rce(s) Supporting Document(s) &PDF [facility] [id number] FcG [file] [id number]= ID Date Data Source [id number] 05/25/2020 10:00:00 AM EST [facility] Name Value Range Interpretation Code Description Data Maggie rce(s) Supporting Document(s) SARS coronavirus 2 RNA [facility] This lab was ordered by [facility] and reported by [facility]. ID Date Data Source [id number] 05/09/2020 12:51:00 PM EDT [facility] ([facility]) Name Value Range Interpretation Code Description Data Maggie rce(s) Supporting Document(s) Microscopic observation [Identifier] in Unspecified specimen by Non- gynecological cytology method Laboratory test result [facility]) SPECIMEN: FNA Left thyroid Specimen receceived in Cytolyt SPECIMEN ADEQUACY: Satisfactory for evaluation CATEGORIZATION: No Malignancy identified DESCRIPTIONS: Scattered groups of follicular cells, some with hurthle cell changes and rare cell with degenerative atypia, seen in a background of foamy macrophages and debris. COMMENTS: 05/10/20201434 Signed BRADLEY CRISTINA CT(ASCP) 05/10/2020 0738 (Prelim) Signed Glen Rubio MD 05/10/20201434 ID Date Data Source [id number] 05/09/2020 12:50:00 PM EDT [facility] ([facility]) Name Value Range Interpretation Code Description Data Maggie rce(s) Supporting Document(s) Microscopic observation [Identifier] in Unspecified specimen by Non- gynecological cytology method Laboratory test result [facility] ([facility]) SPECIMEN: FNA Isthmus nodule Specimen received in Cytolyt SPECIMEN ADEQUACY: Satisfactory for evaluation CATEGORIZATION: No Malignancy identified DESCRIPTIONS: Groups of follicular cells noted in a background of macrophages and several multinucleated histiocytes/giant cells. COMMENTS: 05/10/20201436 Signed BRADLEY CRISTINA(ASC) 05/10/2020 07 (Prelim) Signed Glen Rubio MD 05/10/20201436 ID Date Data Source [id number] 05/09/2020 12:49:00 PM EDT [facility] ([facility]) Name Value Range Interpretation Code Description Data Maggie rce(s) Supporting Document(s) Microscopic observation [Identifier] in Unspecified specimen by Non- gynecological cytology method Laboratory test result [facility] ([facility]) SPECIMEN: FNA Right thyroid Specimen received in Cytolyt SPECIMEN ADEQUACY: Satisfactory for evaluation CATEGORIZATION: No Malignancy identified DESCRIPTIONS: Groups of reactive follicular cells noted in a background of hemosiderin laden macrophages and lymphoid tangles. Focal hurthle cell change is also noted. COMMENTS: In view of radiologic findings of enlarged multinodular solid and cystic thyroid gland, the overall findings favor goiter with reactive and degenerative changes. No definitive evidnce for malignancy is identified, correlation with clinical findings is recommended. See also reports [id number] and [id number] 05/10/2020 1445 Signed BRADLEY CRISTINA(ASCP) 05/10/2020 0725 (Prelim) Signed Glen Rubio MD 05/10/2020 1445 Procedure Social History Code Duration Value Status Description Data Source(s ) Smoking 04/18/2021 12:00:00 AM EDT Never Smoker completed Never S moker eCW1 ([facility]) Smoking 04/18/2021 12:00:00 AM EDT Never Smoker completed Never S moker eCW1 ([facility]) Smoking 02/09/2021 12:00:00 AM EDT Never Smoker completed Never S moker eCW1 ([facility]) Smoking 02/09/2021 12:00:00 AM EDT Never Smoker completed Never S moker eCW1 ([facility]) Smoking 02/09/2021 12:00:00 AM EDT Never Smoker completed Never S moker eCW1 ([facility]) Smoking 01/20/2021 12:00:00 AM EDT Never Smoker completed Never S moker eCW1 ([facility]) Smoking 12/19/2020 12:00:00 AM EDT Patient has never smoked co mpleted Patient has never smoked [facility] ([facility]) Alcohol intake 12/14/2020 12:00:00 AM EDT Lifetime non-drinker (finding) completed Lifetime non-drinker (finding) [facility] Alcohol intake 11/21/2020 12:00:00 AM EDT Lifetime non-drinker (finding) completed Lifetime non-drinker (finding) [facility] Alcohol intake 11/08/2020 12:00:00 AM EDT Lifetime non-drinker (finding) completed Lifetime non-drinker (finding) [facility] Smoking 11/03/2020 12:00:00 AM EDT Never Smoker completed Never S moker eCW1 ([facility]) Smoking 11/03/2020 12:00:00 AM EDT Never Smoker completed Never S moker eCW1 ([facility]) Smoking 11/03/2020 12:00:00 AM EDT Never Smoker completed Never S moker eCW1 ([facility]) Smoking 09/16/2020 12:00:00 AM EST Never Smoker completed Never S moker eCW1 ([facility]) Smoking 09/16/2020 12:00:00 AM EST Never Smoker completed Never S moker eCW1 ([facility]) Smoking 09/16/2020 12:00:00 AM EST Never Smoker completed Never S moker eCW1 ([facility]) Smoking 09/16/2020 12:00:00 AM EST Never Smoker completed Never S moker eCW1 ([facility]) Smoking 08/10/2020 12:00:00 AM EST Never Smoker completed Never S moker eCW1 ([facility]) Smoking 06/16/2020 12:00:00 AM EST Never Smoker completed Never S moker eCW1 ([facility]) Smoking 06/16/2020 12:00:00 AM EST Never Smoker completed Never S moker eCW1 ([facility]) Alcohol intake 05/31/2020 12:00:00 AM EST Never completed [facility] Smoking 05/31/2020 12:00:00 AM EST Never smoker completed Never s moker [facility] Smoking 04/22/2020 12:00:00 AM EDT Never Smoker completed Never S moker eCW1 ([facility]) Smoking 04/22/2020 12:00:00 AM EDT Never Smoker completed Never S moker eCW1 ([facility]) Vital Signs ID Date Data Source UNK Name Value Range Interpretation Code Description Data Source(s) Body height 65 [in_i] 65 [in_i] LAWSON ([facility], ) 5'5" Body weight 208.00 [lb_av] 208.00 [lb_av] CALLUM Oswald ([facility] ) Body mass index (BMI) [Ratio] 34.6 kg/m2 34.6 k g/m2 [facility] ([facility] ) [place] body weight 125 [lb_av] 125 [lb_av] JANAEEN T ([facility]) Body weight 94.349 kg 94.349 [facility] Body surface area Derived from formula 2.01 m2 2.01 m2 [facility] ([facility]) Body weight 216 [lb_av] 216 [lb_av] eCW1 ([facility]) Body height [in_i] eCW1 ([facility]) Body mass index (BMI) [Ratio] 37.66 kg/m2 37.66 kg/m2 eCW1 ([facility]) Heart rate 60 /min 60 /min eCW1 ([facility]ly [facility]) Respiratory rate 18 /min 18 /min eCW1 ([facility]) Body temperature 96.4 [degF] 96.4 [degF] eCW1 ( [facility]) Systolic blood pressure 150 mm[Hg] 150 mm[Hg] e CW1 ([facility]) Diastolic blood pressure 82 mm[Hg] 82 mm[Hg] eCW1 ([facility]) Body weight 213 [lb_av] 213 [lb_av] eCW1 ([facility]) Body height [in_i] eCW1 ([facility]) Body mass index (BMI) [Ratio] 37.14 kg/m2 37.14 kg/m2 eCW1 ([facility]) Heart rate 60 /min 60 /min eCW1 ([facility]ly [facility]) Respiratory rate 19 /min 19 /min eCW1 ([facility]) Body temperature 98 [degF] 98 [degF] eCW1 ([facility]) Systolic blood pressure 110 mm[Hg] 110 mm[Hg] e CW1 ([facility]) Diastolic blood pressure 74 mm[Hg] 74 mm[Hg] eCW1 ([facility]) Body mass index (BMI) [Ratio] 35.8 kg/m2 35.8 k g/m2 [facility]) Body surface area Derived from formula 2.04 m2 2.04 m2 [facility] ([facility]) Body weight 215.00 [lb_av] 215.00 [lb_av] MEDEN T ([facility]) Body height 65 [in_i] 65 [in_i] [facility] ([facility]) 5'5" [place] body weight 125 [lb_av] 125 [lb_av] MEDEN T ([facility]) Body weight 97.524 kg 97.524 kg [facility] ([facility]) Body weight 215.2 [lb_av] 215.2 [lb_av] eCW1 ([facility]) Body mass index (BMI) [Ratio] 37.52 kg/m2 37.52 kg/m2 eCW1 ([facility]) Systolic blood pressure 130 mm[Hg] 130 mm[Hg] e CW1 ([facility]) Diastolic blood pressure 68 mm[Hg] 68 mm[Hg] eCW1 ([facility]) Body height [in_i] eCW1 ([facility]ly [facility]) Body height 65 [in_i] 65 [in_i] [facility] ([facility]) 5'5" Body weight 216.00 [lb_av] 216.00 [lb_av] MEDEN T ([facility]) Body mass index (BMI) [Ratio] 35.9 kg/m2 35.9 k g/m2 [facility] ([facility]) [place] body weight 125 [lb_av] 125 [lb_av] MEDEN T ([facility]) Body weight 97.978 kg 97.978 kg [facility] ([facility]) Body surface area Derived from formula 2.04 m2 2.04 m2 [facility] ([facility]) Body surface area Derived from formula 2.04 m2 2.04 m2 [facility] ([facility]) Body height 65 [in_i] 65 [in_i] [facility] ([facility]) 5'5" Body weight 216.00 [lb_av] 216.00 [lb_av] MEDEN T ([facility]) Body mass index (BMI) [Ratio] 35.9 kg/m2 35.9 k g/m2 [facility] ([facility]) [place] body weight 125 [lb_av] 125 [lb_av] MEDEN T ([facility]) Body weight 97.978 kg 97.978 kg [facility] ([facility]) Systolic blood pressure 120 mm[Hg] 120 mm[Hg] M EDENT ([facility]) Diastolic blood pressure 70 mm[Hg] 70 mm[Hg] [facility] ([facility]) Heart rate 79 /min 79 /min [facility] ([facility]) Oxygen saturation in Arterial blood by Pulse oximetry 94 % 94 % [facility] ([facility]) Body temperature 97.0 [degF] 97.0 [degF] [facility] ([facility]) Body height 65 [in_i] 65 [in_i] [facility] ([facility]) 5'5" Body weight 216.00 [lb_av] 216.00 [lb_av] MEDEN T ([facility]) Body mass index (BMI) [Ratio] 35.9 kg/m2 35.9 k g/m2 [facility] ([facility]) [place] body weight 125 [lb_av] 125 [lb_av] [facility] Body weight 97.978 kg 97.978 kg [facility] ([facility]) Body surface area Derived from formula 2.04 m2 2.04 m2 [facility] ([facility]) Systolic blood pressure 146 mm[Hg] 146 mm[Hg] [facility] Diastolic blood pressure 90 mm[Hg] 90 mm[Hg] [facility] Heart rate 60 /min 60 /min [facility] [place] Body height 165.1 cm 165.1 cm [facility] Body weight 98.431 kg 98.431 kg [facility] Body mass index (BMI) [Ratio] 36.11 kg/m2 36.11 kg/m2 [facility] Oxygen saturation in Arterial blood by Pulse oximetry 95 % 95 % [facility] Systolic blood pressure 160 mm[Hg] 160 mm[Hg] [facility] Diastolic blood pressure 90 mm[Hg] 90 mm[Hg] [facility] Heart rate 65 /min 65 /min [facility] [place] Body height 165.1 cm 165.1 cm [facility] Body weight 100.245 kg 100.245 kg [facility] Body mass index (BMI) [Ratio] 36.78 kg/m2 36.78 kg/m2 [facility] Oxygen saturation in Arterial blood by Pulse oximetry 95 % 95 % [facility] Body mass index (BMI) [Ratio] 36.9 kg/m2 36.9 k g/m2 [facility] ([facility] ) Body weight 222.00 [lb_av] 222.00 [lb_av] [facility] [place] body weight 125 [lb_av] 125 [lb_av] [facility] Body weight 100.699 kg 100.699 kg [facility] ([facility]) Body surface area Derived from formula 2.07 m2 2.07 m2 [facility] ([facility] ) Systolic blood pressure 132 mm[Hg] 132 mm[Hg] M EDENT ([facility], ) Diastolic blood pressure 78 mm[Hg] 78 mm[Hg] [facility] ([facility] ) Heart rate 60 /min 60 /min [facility] ([facility], ) Oxygen saturation in Arterial blood by Pulse oximetry 98 % 98 % [facility] ([facility] ) Body temperature 96.7 [degF] 96.7 [degF] [facility] ([facility] ) Body height 65 [in_i] 65 [in_i] [facility] ([facility], ) 5'5" Systolic blood pressure 136 mm[Hg] 136 mm[Hg] [facility] Diastolic blood pressure 90 mm[Hg] 90 mm[Hg] [facility] Heart rate 75 /min 75 /min [facility] [place] Body height 165.1 cm 165.1 cm [facility] Body weight 100.699 kg 100.699 kg [facility] Body mass index (BMI) [Ratio] 36.94 kg/m2 36.94 kg/m2 [facility] Oxygen saturation in Arterial blood by Pulse oximetry 94 % 94 % [facility] Body weight 221 [lb_av] 221 [lb_av] eCW1 ([facility]) Body height [in_i] eCW1 ([facility]) Body mass index (BMI) [Ratio] 38.53 kg/m2 38.53 kg/m2 W1 ([facility]) Heart rate 77 /min 77 /min eCW1 ([facility]) Respiratory rate 18 /min 18 /min eCW1 ([facility]) Body temperature 97.7 [degF] 97.7 [degF] eCW1 ( [facility]) Systolic blood pressure 123 mm[Hg] 123 mm[Hg] e CW1 ([facility]) Diastolic blood pressure 79 mm[Hg] 79 mm[Hg] eCW1 ([facility]) Heart rate 74 /min 74 /min [facility] [place] Systolic blood pressure 126 mm[Hg] 126 mm[Hg] [facility] Diastolic blood pressure 68 mm[Hg] 68 mm[Hg] [facility] Body weight 100.517 kg 100.517 kg [facility] Body mass index (BMI) [Ratio] 36.88 kg/m2 36.88 kg/m2 [facility] Oxygen saturation in Arterial blood by Pulse oximetry 98 % 98 % [facility] Body height 165.1 cm 165.1 cm [facility] Body weight 216 [lb_av] 216 [lb_av] eCW1 ([facility]) Body height [in_i] eCW1 ([facility]) Body mass index (BMI) [Ratio] 37.66 kg/m2 37.66 kg/m2 eCW1 ([facility]) Heart rate 66 /min 66 /min eCW1 ([facility]) Respiratory rate 19 /min 19 /min eCW1 ([facility]) Body temperature 97.8 [degF] 97.8 [degF] eCW1 ( [facility]) Systolic blood pressure 143 mm[Hg] 143 mm[Hg] e CW1 ([facility]) Diastolic blood pressure 71 mm[Hg] 71 mm[Hg] eCW1 ([facility]) Body weight 217 [lb_av] 217 [lb_av] eCW1 ([facility]) Body height [in_i] eCW1 ([facility]) Body mass index (BMI) [Ratio] 37.83 kg/m2 37.83 kg/m2 eCW1 ([facility]) Heart rate 62 /min 62 /min eCW1 ([facility]) Respiratory rate 18 /min 18 /min eCW1 ([facility]) Body temperature 98 [degF] 98 [degF] eCW1 ([facility]) Systolic blood pressure 152 mm[Hg] 152 mm[Hg] e CW1 ([facility]) Diastolic blood pressure 84 mm[Hg] 84 mm[Hg] eCW1 ([facility]) Systolic blood pressure 142 mm[Hg] 142 mm[Hg] [facility] Diastolic blood pressure 60 mm[Hg] 60 mm[Hg] [facility] Heart rate 60 /min 60 /min [facility] [place] Body height 165.1 cm 165.1 cm [facility] Body weight 100.245 kg 100.245 kg [facility] Body mass index (BMI) [Ratio] 36.78 kg/m2 36.78 kg/m2 [facility] Oxygen saturation in Arterial blood by Pulse oximetry 98 % 98 % [facility] Body weight 219 [lb_av] 219 [lb_av] eCW1 ([facility]) Body height [in_i] eCW1 ([facility]) Body mass index (BMI) [Ratio] 38.18 kg/m2 38.18 kg/m2 eCW1 ([facility]) Heart rate 60 /min 60 /min eCW1 ([facility]) Respiratory rate 18 /min 18 /min eCW1 ([facility]) Body temperature 98.9 [degF] 98.9 [degF] eCW1 ( [facility]) Systolic blood pressure 136 mm[Hg] 136 mm[Hg] e CW1 ([facility]) Diastolic blood pressure 79 mm[Hg] 79 mm[Hg] eCW1 ([facility]) Body weight 214.00 [lb_av] 214.00 [lb_av] MEDEN T ([facility]) [place] body weight 125 [lb_av] 125 [lb_av] MEDEN T ([facility]) Body weight 97.070 kg 97.070 kg [facility] Body surface area Derived from formula 2.04 m2 2.04 m2 [facility] ([facility]) Body height 65 [in_i] 65 [in_i] [facility] ([facility]) 5'5" Body mass index (BMI) [Ratio] 35.6 kg/m2 35.6 k g/m2 [facility] ([facility]) Body weight 218.38 [lb_av] 218.38 [lb_av] MEDEN T ([facility] Body height 65 [in_i] 65 [in_i] [facility] ([facility]) 5'5" Body mass index (BMI) [Ratio] 37.3 kg/m2 37.3 k g/m2 [facility] ([facility]) [place] body weight 125 [lb_av] 125 [lb_av] MEDEN T ([facility]) Body weight 101.606 kg 101.606 kg [facility] ([facility]) Body weight 224.00 [lb_av] 224.00 [lb_av] MEDEN T ([facility]) Body weight 221.12 [lb_av] 221.12 [lb_av] eCW1 ([facility]) Body height [in_i] eCW1 ([facility]) Body mass index (BMI) [Ratio] 38.55 kg/m2 38.55 kg/m2 eCW1 ([facility]) Heart rate 54 /min 54 /min eCW1 ([facility]) Respiratory rate 18 /min 18 /min eCW1 ([facility]) Body temperature 98 [degF] 98 [degF] eCW1 ([facility]) Systolic blood pressure 143 mm[Hg] 143 mm[Hg] e CW1 ([facility]) Diastolic blood pressure 86 mm[Hg] 86 mm[Hg] eCW1 ([facility]) Patient Treatment Plan of Care Planned Activity Planned Date Details Description Data Source (s) Metoprolol Tartrate 25 MG Oral Tablet 11/21/2020 12:00:00 AM EDT [facility] Fluconazole 150 MG Oral Tablet [Diflucan] 11/03/2020 12:00:00 AM ED T eCW1 ([facility]) Amoxicillin 875 MG Oral Tablet 11/03/2020 12:00:00 AM EDT eCW1 ([facility]) Fluconazole 150 MG Oral Tablet 11/03/2020 12:00:00 AM EDT [facility] Amoxicillin 875 MG Oral Tablet 11/03/2020 12:00:00 AM EDT [facility] Fluconazole 150 MG Oral Tablet [Diflucan] 11/03/2020 12:00:00 AM ED T eCW1 ([facility]) Amoxicillin 875 MG Oral Tablet 11/03/2020 12:00:00 AM EDT eCW1 ([facility]) Fluconazole 150 MG Oral Tablet [Diflucan] 11/03/2020 12:00:00 AM ED T eCW1 ([facility]) Amoxicillin 875 MG Oral Tablet 11/03/2020 12:00:00 AM EDT eCW1 ([facility]) Potassium Chloride 10 MEQ Extended Release Oral Tablet 06/22/2020 12:00:00 AM EST [facility] rivaroxaban 20 MG Oral Tablet [Xarelto] 06/22/2020 12:00:00 AM EST [facility] tizanidine 2 MG Oral Tablet 06/16/2020 12:00:00 AM EST eCW1 ([facility]) Prednisone 10 MG Oral Tablet 06/16/2020 12:00:00 AM EST eCW1 ([facility]) tizanidine 2 MG Oral Tablet 06/16/2020 12:00:00 AM EST eCW1 ([facility]) Prednisone 10 MG Oral Tablet 06/16/2020 12:00:00 AM EST eCW1 ([facility]) Furosemide 20 MG Oral Tablet 04/21/2020 12:00:00 AM EDT [facility] Metoprolol Tartrate 25 MG Oral Tablet 04/12/2020 12:00:00 AM EDT [facility] rivaroxaban 20 MG Oral Tablet 12/15/2019 12:00:00 AM EDT [facility] Potassium Chloride 10 MEQ Extended Release Oral Tablet 12/15/2019 12:00:00 AM EDT [facility] Polyethylene Glycol 400 4 MG/ML / Propylene glycol 3 M G/ML Ophthalmic Solution 11/26/2016 12:00:00 AM EDT [facility] Ascorbic Acid 226 MG / Beta Carotene 143 20 UNT / cuprous oxide 0.8 MG / dl-alpha tocopheryl acetate 200 UNT / Zinc Oxide 34.8 MG Oral Capsule [PreserVision] 04/12/2015 12:00:00 AM EDT [facility] tizanidine 2 MG Oral Tablet [facility]
--- OUTSIDE RECORDS SUMMARY | 2021-05-08 12:55 | CCD | Continuity of Care Document ---
Author Author Donna REILLY DPM Organization Unknown Address [address] [place] [address] 2 [place] [address] Phone [phone] Care Team Providers Care Rrt Name Role Phone Souleymane Cox M.D. [phone] Problems Active Problems Provider Date Ingrowing nail [...] Every Day Unknown Fluticasone Propionate 50mcg/Act Suspension [facility] 00 Suprep Bowel Prep Kit 17.5-3.13-1.6GM/177ML Solution Ash Gilmore M.D. Amoxicillin 500mg Tablets [facility] Fluconazole 150mg Tablets [facility] Furosemide 20mg Tablets Take One Tablet By Mouth Every Day Unknown Potassium Chloride Enedelia ER 10Meq Tablets ER Anjum Cruz,[place] Metoprolol Tartrate 50mg Tablets Anjum [facility],[place] Enalapril Maleate 5mg Tablets Anjum [facility] Flecainide Acetate 50mg Tablets Take One Tablet By Mouth Twice A Day Unknown Lisinopril 2.5mg Tablets Unknown Oxycodone-Acetaminophen 5-325mg Tablets Unknown Esomeprazole Magnesium 40mg Capsul es DR Take One Capsule By Mouth Once Daily Unknown Amoxicillin/Clavulanate Potassium 875-125mg Tablets Unknown Xarelto 20mg Tablets Unknown Medications Administered in Office Medication SIG Qnty Indications Ordering Provider Date Inject Triamcinolone Acetonide 10 ML, ND C 7562-2703-56 Injection SCOTT Mendoza 01/09/2018 Inject Dexamthosone Phosphate 67869-720- 30 Injection [facility] 018 Immunizations Description No Information Available Vital [...] Information Available Procedures Date Code Description Status 12/23/2020 79584 Office/Outpatient Established [facility] 10-19 Min Completed 12/23/2020 00659 Debridement 6-10 Nails Electric Completed 10/07/2020 21962 Debridement 6-10 Nails Electric Completed Medical Devices Description No Information Available Encounters Type Date Location Provider Dx Diagnosis Office Visit 12/23/2020 3:15p [facility] Jose Reilly DPM M65.879 Other synovitis and tenosynovitis, unsp ankle and foot B35.1 Tinea unguium L60.0 Ingrowing nail M79.676 Pain in unspecified toe(s) Assessments Date Code Description Provider 12/23/2020 M65.879 Other synovitis and tenosynovitis, unspecified ankle and foot Jose Reilly DPM 12/23/2020 B35.1 Tinea unguium Jose Reilly, FERCHO 12/23/2020 L60.0 Ingrowing nail Jose Reilly, FERCHO 12/23/2020 M79.676 Pain in unspecified toe(s) Doug Reilly DPM 10/07/2020 B35.1 Tinea unguium Jose Reilly, FERCHO 10/07/2020 L60.0 Ingrowing nail Jose Reilly, FERCHO 10/07/2020 M79.676 Pain in unspecified toe(s) Doug Reilly DPM Plan of Treatment Future Appointment(s):* 05/12/2021 3:15 pm - Jose Reilly DPM at [facility] Functional Status Description No Information Available Mental Status Description No Information Available Referrals Description No Information Available
--- OUTSIDE RECORDS SUMMARY | 2021-05-08 12:55 | CCD | Continuity of Care Document ---
Author Author Donna NICK MD Organization Unknown Address [address] [address] Phone [phone] Care Team Providers Care Joint Setter Name Role Phone Souleymane Cox M.D. AUTM [phone] AUTM Unavailable Karen So AUTM AUTM Unavailable Pro Roberson M.D. AUTM [phone] Problems Active Problems Provider Date Essential hypertension [...] smoked Allergies, Adverse Reactions, Alerts Active Allergies Reaction Severity Comments Date Mobic 05/02/2020 Inactive Allergies NKDA 01/14/2012 Medications Active Medications SIG Qnty Indications [...] lb BMI (Body Mass Index) 35.8 kg/m2 [place] Body Weight 125 lb Weight 97.524 kg BSA (Body Surface Area) 2.04 m2 12/23/2020 1:51pm Height 65 inches 5'5" Weight 216.00 lb BMI (Body Mass Index) 35.9 kg/m2 Thornton Body Weight 125 lb Weight 97.978 kg BSA (Body Surface Area) 2.04 m2 Results Test Acquired Date Facility Test Result H/L Range Note Laboratory test finding 01/09/2021 [facility] [address] [place] [address] [phone] Non Binder And Box Builder/Cytology Req For Servi (SEE NOTE) 1 Laboratory test finding 01/09/2021 [facility] [address] [place] [address] [phone] Non Binder And Box Builder/Cytology Req For Servi (SEE NOTE) 2 Laboratory test finding 01/09/2021 [facility] [address] [place] [address] [phone] Non Binder And Box Builder/Cytology Req For Servi (SEE NOTE) 3 FT4&TSH Panel 12/30/2020 [facility] [address] [place] [address] [phone] Thyroid Stimulating Hormone 0.295 uIU/ML Low 0. 358-3.740 Free T4 0.79 ng/dL Normal 0.76-1.46 Laboratory test finding 12/30/2020 [facility] [address] [place] [address] [phone] Free T3 3.1 pg/mL Normal 2.2-4.0 Ionized Calcium 4.8 mg/dL Normal 4.5-5.3 Thyroglob QNT Incl Thyrogl Julianne 12/30/2020 [facility] Main Lab [address] [place] [address] [phone] Thyroglobulin Quantitative 1417.7 ng/mL High 1.5 -38.5 4 Thryoglobulin Antibodies (Rios) < 1.0 IU/mL Normal 0.0-0.9 5 Laboratory test finding 12/30/2020 [facility] [address] [place] [address] [phone] PTH Intact 70.0 pg/mL Normal 18.5-88.0 FVL/Robeline 11/15/2020 [employer] PDFReport SEE IMAGE FVC-Pred 2.65 L FVC-Pre 1.45 L FVC-%Pred-Pre 54 L FVC-LLN 1.93 L Fev1-Pred 1.97 L Fev1-Pre 1.26 L Fev1-%Pred-Pre 64 L Fev1-LLN 1.36 L Fev6-Pred 2.50 L Fev6-Pre 1.45 L Fev6-%Pred-Pre 58 L Fev6-LLN 1.80 L Mmv3zyy-Saaz 73 % Ucm9lgb-Nnz 87 % Zlr8vil-%Pred-Pre 118 % Blr1dsw-LPC 64 % Krs1bui-Mryh 94 % Azd2etx-Ghv 100 % Xgx9hlq-%Pred-Pre 105 % FEFMax-Pred 4.75 L/E/sec FEFMax-Pre 5.30 L/E/sec FEFMax-%Pred-Pre 111 L/E/sec FEFMax-LLN 2.98 L/E/sec Wmz0722-Xkwj 1.36 L/E/sec Dgf2541-Zew 1.69 L/E/sec Psa7179-%Pred-Pre 123 L/E/sec Egp2131-PFH 0.08 L/E/sec ExpTime-Pre 5.89 sec Elh6bku3-Qwuf 77 % Ybx6adc8-Cat 87 % Hqf0nwo3-%Pred-Pre 112 % Zsn7nky0-QCQ 68 % 1 SPECIMEN: FNA Lef t lower isthmus/labeled left thyroid SPECIMEN ADEQUACY: Satisfactory for evaluation CATEGORIZATION: Benign DESCRIPTIONS: Scattered follicular cells noted in a background of hemosiderin laden macrophages, and scattered lymphocytes. COMMENTS: 01/10/2021 - 942 Signed BRADLEY CRISTINA(ASCP) 01/10/2021 0943 (Prelim) Signed [...] 0.1 ng/mL . Thyroglobulin measured by Dashawn Mac Immunometric Assay Performed at: RN - [facility] [address] [id number] Spiral Binder: Ariana Hutchison MD, Phone: [phone] Thyroglobulin Antibody measu red by Dashawn [place] Methodology Procedures Date Code Description Status 01/30/2021 54138 Office/Outpatient Established Mo d [facility] 30-39 Min Completed 01/30/2021 15363 Laryngoscopy Flexible Fiberoptic Diagnostic Completed 12/23/2020 69587 Office/Outpatient Established Lo w MDM 20-29 Min Completed 12/19/2020 54122 Office/Outpatient Established Mo d MDM 30-39 Min Completed 12/09/2020 25589 Diffusing Capacity Completed 12/09/2020 48359 Plethysmography Determination Nery ng Volumes & Per Airway Resist Completed 12/09/2020 58720 Bronchospasm Evaluation Complete d 11/15/2020 72903 Office/Outpatient Established Mo d MDM 30-39 Min Completed 11/15/2020 65849 Spirometry Completed Medical Devices Description No Information Available Encounters Type Date Location Provider Dx Diagnosis Office Visit 12/23/2020 2:00p [facility] Leonel Nick MD [...] Garcia ea, N.P. 12/19/2020 R05 Cough Kerrie Garcia, N .P. 12/19/2020 G47.33 Obstructive sleep apnea (adult) (pediatric) Kerrie Garcia, N.P. 12/09/2020 R06.00 Dyspnea, unspecified Pulmonary L ab 12/09/2020 R05 Cough Pulmonary Lab 11/15/2020 G47.33 Obstructive sleep apnea (adult) (pediatric) Kerrie Garcia, N.P. 11/15/2020 R06.00 Dyspnea, unspecified Indira Garcia ea N.PNathaniel 11/15/2020 R05 Cough Kerrie Garcia N .Sidney. Plan of Treatment 01/30/2021 - Leonel Nick MD* E04.2 Nontoxic [...] for Referral Status Appt Date Kerrie Garcia F.N.P. DYSPNEA Scheduled 11/15/2020 [facility] [address] [place], [place] [address] [phone]
--- OUTSIDE RECORDS SUMMARY | 2021-05-08 12:55 | CCD ---
Author Author [facility] Organization [facility] Address Unknown Phone Unavailable Care Team Providers Care Business Development Manager Name Role Phone Souleymane Cox Unavailable PROBLEMS Type Condition ICD9-CM Code CWY24-RD Code Onset Dates Condition S tatus W/U Status Risk SNOMED Code Notes Problem Orthostatic hypotension I95.1 Active confirmed 21104122 Problem History of DVT in adulthood Z86.718 Active confirme d 569133228 Problem Degenerative disc disease, cervical M50.30 Acti ve confirmed 69484615 Problem Carpal tunnel syndrome of right wrist G56.01 Ac tive confirmed 18917638 Problem Myofascial pain M79.1 Active confirmed 7390 69543 Problem Encounter for immunization Z23 Active confirmed 212538873 Problem Paroxysmal atrial fibrillation I48.0 Active confir med 585438313 Problem 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 Active confirmed 141919113 Problem Impairment of balance R26.89 Active confirmed 223312047 Problem B12 deficiency E53.8 Active confirmed 12846 4004 Problem History of thrombophlebitis Z86.72 Active confirmed 070506679 Problem Maxillary sinusitis J32.0 Active confirmed 29815028 Problem Stasis dermatitis of right l ower extremity due to peripheral venous hypertension I83.11 Active confirmed 628493080 Problem Multinodular goiter E04.2 Active confirmed 602260548 Problem Arteriosclerosis I70.90 Active confirmed 720 10205 Problem 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 A ctive confirmed 05003881 Problem Carpal tunnel syndrome G56.00 Active confirmed 11642008 Problem Carpal tunnel syndrome, right G56.01 Active co nfirmed 336568734637119 Problem Asthma, intermittent J45.20 Active confirmed 968391122 Problem Bony exostosis M89.8X9 Active confirmed 4161 37936 Problem Vitamin B12 deficiency E53.8 Active confirmed 101130994 Problem 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 0 Active confirmed 3584719 Problem Chronic diastolic heart failure I50.32 Active confi rmed 469126159 Problem Multinodular goiter (nontoxic) E04.2 Active confir med 62042111 Problem Chronic dyspnea R06.09 Active confirmed 8705 52018 Problem Primary osteoarthritis involving multiple joints M 15.0 Active confirmed 856022279 Problem Chronic constipation K59.00 Active confirmed 070089333 Problem S/P cardiac pacemaker procedure Z95.0 Active confi rmed 022098650 Problem Palpitations R00.2 Active confirmed 3808146 2 Problem Diverticulosis K57.90 Active confirmed 38719 1000 Problem Dizziness and giddiness R42 Active confirmed 034547203 Problem Pure hypercholesterolemia E78.0 Active confirmed 327316741 Problem Paroxysmal atrial flutter I48.92 Active confirmed 099513269 Problem Tachy-julio cesar syndrome I49.5 Active confirmed 42958408 Problem Perirectal burning K62.89 Active confirmed 9 6210440 Problem Hyperthyroidism E05.90 Active confirmed 3448 6009 Problem Hypertensive heart disease without heart failure I 11.9 Active confirmed 83049408 ALLERGIES Allergen (clinical drug ingredient) Drug/Non Drug Allergy do cumented on EMR Reaction Allergy Type Onset Date Status meloxicam Mobic([facility] Code:[address]-86) Bp elevated Drug Allergy Active ENCOUNTERS from 1938 to 2021-02-14 Encounter Location Date Provider Diagnosis [facility] Deepak NUNEZ ZACHERY [phone] [place]VANY SMITH [address] Jan, 2021 Souleymane Cox Multinodular goiter (nontoxic) E04.2 ; T achy-julio cesar syndrome I49.5 ; S/P cardiac pacemaker procedure Z95.0 ; Asthma, intermittent J45.20 and GERD (gastroesophageal reflux disease) K21.9 IMMUNIZATIONS Vaccine Route Administration Date Status Vitamin [...] FOR REFERRAL No Information VITAL SIGNS Weight 213 lbs Jan, Height 5'3 1/2" in Jan, BMI 37.14 kg/m2 Jan, Heart Rate 60 /min Jan, Respiratory Rate 19 /min Jan, Temperature 98 degrees Fahrenheit Jan, Oximetry 98RA Jan, Blood pressure systolic 110 mm Hg Jan, Blood pressure diastolic 74 mm Hg Jan, MEDICATIONS Medication SIG (Take, Route, Frequency, Duration) [...] Information RESULTS No Results REASON FOR VISIT 4 mo follow up MEDICAL (GENERAL) HISTORY Type Description Date Medical [...] History Colonoscopy,endoscopy 01/28/19 Surgical History Pacemaker ([facility]) 05/31/2020 Hospitalization History Surgery Hospitalization History [facility] 2019 Goals Section No Information Health Concerns No Information MEDICAL EQUIPMENT No Information MENTAL STATUS No Information FUNCTIONAL STATUS No Information ASSESSMENTS Encounter Date Diagnosis Assessment Notes Treatment Notes Treatm ent Clinical Notes Jan, Multinodular goiter (nontoxic) (ICD-10 - E04.2) Jan, Tachy-julio cesar syndrome (ICD-10 - I49.5) Jan, S/P cardiac pacemaker procedure (ICD-10 - Z95.0) Jan, Asthma, intermittent (ICD-10 - J45.20) Jan, GERD (gastroesophageal reflux disease) (ICD-10 - K21.9) PLAN OF TREATMENT Medication Medication Name Sig [...] MCG 2 tablets Orally Once a day Treatment Notes Test Name Order Date CBC - Complete Blood Count 2021-02-13 Comprehensive Metabolic Profile (CMP) 2021-02-13 FREE T3 2021-02-13 FREE T4 & TSH PANEL 2021-02-13 Next Appt Details 4 Months Reason: Provider Name:Vicki Galicia, 11:30:00 AM, [address] [facility], , [place], [address], Provider Name:Souleymane Cox, 2021-06-13 11 :00:00 AM, [address] [place] [address] [place], [address], Insurance Providers Payer Name Payer Address Payer Phone Insured Name Patient Relati onship to Insured Coverage Start Date Coverage End Date [employer] [facility] CLAIM DIV [address] [facility] [phone] BERNY LISA self MEDICARE Part A and B [address] [facility] [phone] BERNY LISA self
--- NOTE | 2021-05-08 13:41 | REP ---
INDICATION: CHEST PAIN. COMPARISON: 11/03/2020. TECHNIQUE: Single portable AP view of the chest was performed. FINDINGS: There is stable cardiomegaly. There is no acute infiltrate. There is some calcification and tortuosity of the thoracic aorta.The mediastinal silhouette is unchanged. Left 2 lead pacemaker is again noted. IMPRESSION: No acute pulmonary disease.Stable cardiomegaly. <Electronically signed by Sanjay Corea > 05/08/21 4240
[2021-05-08 13:56] LABS: BASO # 0.1 10^3/uL (0.0-0.2); BASO % 1.7 % (0.0-1.0); EOS # 0.1 10^3/uL (0.0-0.5); HEMATOCRIT 38.7 % (36.0-47.0); HEMOGLOBIN 12.5 g/dl (12.0-15.5); LYMPH % 31.4 % (24.0-44.0); MEAN CORPUSCULAR HEMOGLOBIN 30.1 pg (27.0-33.0); MEAN CORPUSCULAR HGB CONC 32.3 g/dl (32.0-36.5); MEAN CORPUSCULAR VOLUME 93.3 fl (80.0-96.0); MONO # 0.6 10^3/uL (0.0-0.8); MONO % 9.3 % (2.0-8.0); NEUTROPHILS # 3.6 10^3/uL (1.5-8.5); NEUTROPHILS % 55.4 % (36.0-66.0); PLATELET COUNT, AUTOMATED 180 10^3/uL (150-450); RED BLOOD COUNT 4.15 10^6/uL (4.00-5.40); WHITE BLOOD COUNT 6.5 10^3/uL (4.0-10.0)
[2021-05-08 14:11] LABS: INR 1.81; PARTIAL THROMBOPLASTIN TIME 36.5 SECONDS (25.9-37.0); PROTHROMBIN TIME 21.4 SECONDS (12.7-14.5)
--- OUTSIDE RECORDS SUMMARY | 2021-05-08 14:12 | CCD ---
Author Author [facility] Organization [facility] Address Unknown Phone Unavailable Care Team Providers Care Middleware Engineer Name Role Phone Lloyd Guerra MD Unavailable [...] Unavaila ble MigeedLloyd MD Unavailable Unavaila ble MigeedLlody MD Unavailable Unavaila ble MAJAK, R IAN [...] MD Unavailable Unavaila ble MYLA, LAUREN MASON MOTOR VEHICLE REPRESENTATIVE-C Unavailable Unavailable MYLA, LAUREN MASON MOTOR VEHICLE REPRESENTATIVE-C Unavailable Unavailable MYLA, LAUREN MASON MOTOR VEHICLE REPRESENTATIVE-C Unavailable Unavailable MYLA, LAUREN MASON MOTOR VEHICLE REPRESENTATIVE-C Unavailable Unavailable MYLA, LAUREN MASON MOTOR VEHICLE REPRESENTATIVE-C Unavailable Unavailable MYLA, LAUREN MASON MOTOR VEHICLE REPRESENTATIVE-C Unavailable Unavailable MYLA, LAUREN MASON MOTOR VEHICLE REPRESENTATIVE-C Unavailable Unavailable MYLA, LAUREN MASON MOTOR VEHICLE REPRESENTATIVE-C Unavailable Unavailable MYLA, LAUREN MASON MOTOR VEHICLE REPRESENTATIVE-C Unavailable Unavailable MYLA, LAUREN MASON MOTOR VEHICLE REPRESENTATIVE-C Unavailable Unavailable MYLA, LAUREN MASON MOTOR VEHICLE REPRESENTATIVE-C Unavailable Unavailable MYLA, LAUREN MASON MOTOR VEHICLE REPRESENTATIVE-C Unavailable Unavailable MYLA, LAUREN MASON MOTOR VEHICLE REPRESENTATIVE-C Unavailable Unavailable MYLA, LAUREN MASON MOTOR VEHICLE REPRESENTATIVE-C Unavailable Unavailable MYLA, LAUREN MASON MOTOR VEHICLE REPRESENTATIVE-C Unavailable Unavailable MYLA, LAUREN MASON MOTOR VEHICLE REPRESENTATIVE-C Unavailable Unavailable MYLA, LAUREN MASON MOTOR VEHICLE REPRESENTATIVE-C Unavailable Unavailable Mcleod, V DINORAH PA-C Unavailable Unavailable Art, V DINORAH PA-C Unavailable Unavailable Mcleod, V DINORAH PA-C Unavailable Unavailable Mcleod, V DINORAH PA-C Unavailable Unavailable Mcleod, V DINORAH PA-C Unavailable Unavailable Art, V DINORAH PA-C Unavailable Unavailable Art, V DINORAH PA-C Unavailable Unavailable Mcleod, V DINORAH PA-C Unavailable Unavailable Art, V DINORAH PA-C Unavailable Unavailable Mcleod, V DINORAH PA-C Unavailable Unavailable Art, V DINORAH PA-C Unavailable Unavailable Mcleod, V DINORAH PA-C Unavailable Unavailable Mcleod, V DINORAH PA-C Unavailable Unavailable Mcleod, V DINORAH PA-C Unavailable Unavailable Mary, N Shade BUSINESS CONTROL SPECIALIST Unavailable Unavailable Mary, N Shade BUSINESS CONTROL SPECIALIST Unavailable Unavailable Mary, N Shade BUSINESS CONTROL SPECIALIST Unavailable Unavailable [place], N Shade BUSINESS CONTROL SPECIALIST Unavailable Unavailable Mary, N [place]ade BUSINESS CONTROL SPECIALIST Unavailable Unavailable [place], N Shade BUSINESS CONTROL SPECIALIST Unavailable Unavailable [place], N Shade BUSINESS CONTROL SPECIALIST Unavailable Unavailable Mary, N Shade BUSINESS CONTROL SPECIALIST Unavailable Unavailable [place], N [place]ade BUSINESS CONTROL SPECIALIST Unavailable Unavailable [place], N Shade BUSINESS CONTROL SPECIALIST Unavailable Unavailable [place], N Shade BUSINESS CONTROL SPECIALIST Unavailable Unavailable Mary, N Shade BUSINESS CONTROL SPECIALIST Unavailable Unavailable [place], N Shade BUSINESS CONTROL SPECIALIST Unavailable Unavailable Mary, N Shade BUSINESS CONTROL SPECIALIST Unavailable Unavailable [place], N Shade BUSINESS CONTROL SPECIALIST Unavailable Unavailable Mary, N [place]ade BUSINESS CONTROL SPECIALIST Unavailable Unavailable [place], N Shade BUSINESS CONTROL SPECIALIST Unavailable Unavailable Mary, N Shade BUSINESS CONTROL SPECIALIST Unavailable Unavailable Mary, N [place]ade BUSINESS CONTROL SPECIALIST Unavailable Unavailable Mary, N [place]ade BUSINESS CONTROL SPECIALIST Unavailable Unavailable [place], N Shade BUSINESS CONTROL SPECIALIST Unavailable Unavailable Mary, N [place]ade BUSINESS CONTROL SPECIALIST Unavailable Unavailable [place], N Shade BUSINESS CONTROL SPECIALIST Unavailable Unavailable Mary, N [place]ade BUSINESS CONTROL SPECIALIST Unavailable Unavailable [place], N Shade BUSINESS CONTROL SPECIALIST Unavailable Unavailable Mary, N [place]ade BUSINESS CONTROL SPECIALIST Unavailable Unavailable Mary, N [place]ade BUSINESS CONTROL SPECIALIST Unavailable Unavailable Mary, N [place] BUSINESS CONTROL SPECIALIST Unavailable Unavailable Mary, N [place]ade BUSINESS CONTROL SPECIALIST Unavailable Unavailable [place], N Shade BUSINESS CONTROL SPECIALIST Unavailable Unavailable [place], N Shade BUSINESS CONTROL SPECIALIST Unavailable Unavailable [place], N Shade BUSINESS CONTROL SPECIALIST Unavailable Unavailable [place], N Shade BUSINESS CONTROL SPECIALIST Unavailable Unavailable MEDENT_143, NA Unavailable [phone] Shawn NICK MD Unavailable Unavailable Shawn NICK MD Unavailable Unavailable Shawn NICK MD Unavailable Unavailable Sahwn NICK MD Unavailable Unavailable Shawn NICK MD [...] is protected by Article 27-F of the [facility] Public Health law. If you continue you may have access to information: Regarding HIV / AIDS; Provided by facilities licensed or operated by the [facility] Office of Mental Health; or Provided by the [facility] Office for People With Developmental Disabilities. If such information is present, then the following [facility] mandated warning applies: This information has been [...] law may result in a fine or fdc sentence or both. A general authorization for [...] [facility] () Unknown Male Problem MEDENT ([facility] ) Encounters Encounter Providers Location Date Indications Data Source(s ) Unknown [address] [facility] [address] 05/01/2021 12:00:00 AM EDT eCW1 ([facility]) Outpatient Admitter: GREGORY NICK MDReferrer: GREGORY NICK MD 04/26/2021 12:00:00 AM EDT Nontoxic goiter, unspecified [facility] Nontoxic goiter, unspecified Outpatient [address] [place] [address] 04/18/2021 12:00:00 AM EDT eCW1 ([facility]) Outpatient SJP.CT-SJP.SYR 04/13/2021 12:03:15 PM EDT [facility] Office Visit Attender: IAN REILLY [facility] Office 03/17 11:00:00 AM EDT MEDENT ([facility] Unknown [address] [facility] [address] 03/28/2021 12:00:00 AM EDT eCW1 ([facility]) Unknown [address] [facility] [place] [address] 03/15/2021 12:00:00 AM EDT eCW1 ([facility]) Outpatient Attender: IAN REILLY [facility] Office 02/13 03:30:00 PM EDT MEDENT ([facility] [place] [address] [facility] [address] 02/09/2021 12:00:00 AM EDT eCW1 ([facility]) Outpatient Attender: GREGORY Nick/Charito/Gal/Shanted nahed 01/30/2021 09:30:00 AM EDT MEDENT ([facility], ) [place] [address] [facility] [address] 01/20/2021 12:00:00 AM EDT eCW1 ([facility]) Unknown [address] [facility] [address] 01/17/2021 12:00:00 AM EDT eCW1 ([facility]) Outpatient AYAAN-SJP.AVRIL 01/04/2021 12:30:51 PM EDT [facility] Outpatient Attender: IAN REILLY [facility] 12/13 03:15:00 PM EDT MEDENT ([facility] Outpatient Attender: GREGORY Nick/Charito/Gal/Alice dockery 12/23/2020 02:00:00 PM EDT MEDENT ([facility], ) Outpatient Attender: MASON Nick/Charito/Gal/Vidya galdamez 12/19/2020 10:15:00 AM EDT MEDENT ([facility], ) Outpatient Attender: DINORAH FREY-SJSidney.CONY 12:00:00 AM EDT - 12/08/2020 10:55:32 AM EDT [facility] Outpatient Referrer: DINORAH FREY-SJLauraCONY 11:15:14 AM EDT [facility] Outpatient Attender: DINORAH BEALSJLauraCONY 04/2021 01:21:30 PM EDT - 11/21/2020 02:57:24 PM EDT [facility] Outpatient Attender: MASON Nick/Charito/Walter galdamez 11/15/2020 01:15:00 PM EDT MEDENT ([facility], ) Outpatient Attender: DINORAH FREY-SJSidney.CONY 01:10:30 PM EDT - 11/08/2020 02:57:59 PM EDT [facility] Outpatient [address] [facility] [address] 11/03/2020 12:00:00 AM EDT eCW1 ([facility]) Unknown [address] [facility] [address] 11/03/2020 12:00:00 AM EDT eCW1 ([facility]) Outpatient Attender: DINORAH CARMENCONY-SJP.CONY 10:12:32 AM EDT - 10/25/2020 11:16:43 AM EDT [facility] Unknown [address] [facility] [address] 10/19/2020 12:00:00 AM EDT eCW1 ([facility]) Unknown [address] [facility] [address] 10/04/2020 12:00:00 AM EDT eCW1 ([facility]) Outpatient SHANTE-SJP 09/30/2020 11:27:23 AM EDT [facility] Outpatient SHANTE-PETER.CONY 09/29/2020 12:00:00 AM EDT [facility] Outpatient [address] [facility] [address] 09/16/2020 12:00:00 AM EST eCW1 ([facility]) Unknown [address] [facility] [address] 09/15/2020 12:00:00 AM EST eCW1 ([facility]) Outpatient [address] [facility] [address] 08/10/2020 12:00:00 AM EST eCW1 ([facility]) Outpatient SJP.CONY-SJP 07/02/2020 10:42:01 AM EST [facility] Outpatient SJP.CONY-SJP.CONY 06/30/2020 12:00:00 AM EST [facility] Outpatient Attender: DINORAH Cordova PA-C SJP.CONY-SJP.CONY 03/2020 12:00:00 AM EST - 06/22/2020 02:55:55 PM EST [facility] Outpatient [address] [facility] [address] 06/16/2020 12:00:00 AM EST eCW1 ([facility]) Unknown [address] [facility], [facility] [address] 06/16/2020 12:00:00 AM EST eCW1 ([facility]) Office Visit Attender: NA LAWSON_143 [facility] Phlebotomy Technician s 06/06/2020 10:00:00 AM EST MEDENT ([facility]) Outpatient Attender: GREGORY Nick/Charito/Gal/Alice dockery 05/31/2020 12:15:00 PM EST MEDENT ([facility]) Outpatient Attender: Erica Guerra MD Admitter: Erica Guerra MDReferrer: Erica Guerra MD ES1-SJ.CVAU 05/30/2020 12:14:00 PM EST - 05/30/2020 04:40:00 PM EST [facility] Patient discharged. Outpatient Attender: Erica Guerra MD [facility] 05/19/2020 01:00:00 PM EST MEDENT ([facility]) Outpatient Attender: IAN REILLY [facility] Office 04/16 03:15:00 PM EDT MEDENT ([facility] Outpatient Attender: GREGORY Nick/Charito/Gal/Alice dockery 05/02/2020 02:00:00 PM EDT MED[facility] ([facility] [place] [address] [facility] [address] 04/27/2020 12:00:00 AM EDT eCW1 ([facility]) Outpatient [address] [facility] [place] [address] 04/22/2020 12:00:00 AM EDT eCW1 ([facility]) Unknown [address] [facility] [place] [address] 04/21/2020 12:00:00 AM EDT eCW1 ([facility]) Unknown [address] [facility] [address] 04/13/2020 12:00:00 AM EDT eCW1 ([facility]) Outpatient Attender: Shade Hernandez NP SJP.CONY-SJP.CONY 020 10:41:00 AM EDT - 04/12/2020 12:05:10 PM EDT [facility] Medications Medication Brand Name Start Date [...] Neomycin 3.5 M G/ML / Polymyxin B 70044 UNT/ML Otic Solution Wkdeexvr-Aftqqaeed-IT 03/30/2021 12:00:00 AM EDT active MEDENT ([facility] [...] by mouth 2 (two) times a day [facility] Amoxicillin 875 MG Oral Tablet Amoxicillin 875 MG 11/03/2020 12:00: 00 AM EDT 1.0 {tablet} suspended Amoxicillin 875 M G eCW1 ([facility]) Fluconazole 150 MG Oral Tablet [Diflucan] Diflucan 150 MG Di flucan 150 MG 11/03/2020 12:00:00 AM EDT 1.0 {tablet} active Diflucan 150 MG eCW1 ([facility]) Amoxicillin 875 MG Oral Tablet Amoxicillin 875 MG 11/03/2020 12:00: 00 AM EDT 1.0 {tablet} active Amoxicillin 875 MG eCW1 ([facility]) Fluconazole 150 MG Oral Tablet [Diflucan] Diflucan 150 MG Di flucan 150 MG 11/03/2020 12:00:00 AM EDT 1.0 {tablet} suspended Diflucan 150 MG eCW1 ([facility]) Amoxicillin 875 MG Oral Tablet Amoxicillin 875 MG 11/03/2020 12:00: 00 AM EDT 1.0 {tablet} active Amoxicillin 875 MG eCW1 ([facility]) Fluconazole 150 MG Oral Tablet [Diflucan] Diflucan 150 MG Di flucan 150 MG 11/03/2020 12:00:00 AM EDT 1.0 {tablet} active Diflucan 150 MG eCW1 ([facility]) 875 mg 11/03/2020 12:00:00 AM EDT tablet 20 TAKE ONE TABLET BY MOUTH TWICE A DAY TAKE ONE TABLET BY MOUTH TWICE A DAY SOLD: 11/03/2020 [facility] Amoxicillin 875 MG Oral Tablet Amoxicillin 875 MG 11/03/2020 12:00: 00 AM EDT 1.0 {tablet} suspended Amoxicillin 875 M G eCW1 ([facility]) Amoxicillin 875 MG Oral Tablet Amoxicillin 875 MG 11/03/2020 12:00: 00 AM EDT 1.0 {tablet} suspended Amoxicillin 875 M G eCW1 ([facility]) Fluconazole 150 MG Oral Tablet [Diflucan] Diflucan 150 MG Di flucan 150 MG 11/03/2020 12:00:00 AM EDT 1.0 {tablet} suspended Diflucan 150 MG eCW1 ([facility]) Amoxicillin 875 MG Oral Tablet Amoxicillin 875 MG 11/03/2020 12:00: 00 AM EDT 1.0 {tablet} active Amoxicillin 875 MG eCW1 ([facility]) Amoxicillin 875 MG Oral Tablet Amoxicillin 875 MG 11/03/2020 12:00: 00 AM EDT 1.0 {tablet} suspended Amoxicillin 875 M G eCW1 ([facility]) Fluconazole 150 MG Oral Tablet [Diflucan] Diflucan 150 MG Di flucan 150 MG 11/03/2020 12:00:00 AM EDT 1.0 {tablet} suspended Diflucan 150 MG eCW1 ([facility]) Amoxicillin 875 MG Oral Tablet Amoxicillin 875 MG 11/03/2020 12:00: 00 AM EDT 1.0 {tablet} suspended Amoxicillin 875 M G eCW1 ([facility]) Fluconazole 150 MG Oral Tablet fluconazole (DIFLUCAN) 150 MG tablet fluconazole (DIFLUCAN) 150 MG tablet 11/03/2020 12:00:00 AM EDT aborted TAKE 1 TABLET BY MOUTH TODAY REPEAT IN 3 DAYS [facility] Fluconazole 150 MG Oral Tablet [Diflucan] Diflucan 150 MG Di flucan 150 MG 11/03/2020 12:00:00 AM EDT 1.0 {tablet} suspended Diflucan 150 MG eCW1 ([facility]) Fluconazole 150 MG Oral Tablet [Diflucan] Diflucan 150 MG Di flucan 150 MG 11/03/2020 12:00:00 AM EDT 1.0 {tablet} active Diflucan 150 MG eCW1 ([facility]) Fluconazole 150 MG Oral Tablet [Diflucan] Diflucan 150 MG Di flucan 150 MG 11/03/2020 12:00:00 AM EDT 1.0 {tablet} suspended Diflucan 150 MG eCW1 ([facility]) Amoxicillin 875 MG Oral Tablet Amoxicillin 875 MG 11/03/2020 12:00: 00 AM EDT 1.0 {tablet} suspended Amoxicillin 875 M G eCW1 ([facility]) Fluconazole 150 MG Oral Tablet [Diflucan] Diflucan 150 MG Di flucan 150 MG 11/03/2020 12:00:00 AM EDT 1.0 {tablet} suspended Diflucan 150 MG eCW1 ([facility]) Amoxicillin 875 MG Oral Tablet amoxicillin (AMOXIL) 87 5 MG tablet amoxicillin (AMOXIL) 875 MG tablet 11/03/2020 12:00:00 AM EDT 875 mg Oral aborted Take 875 mg by mouth 2 (two) times a day [facility] 150 mg 11/03/2020 12:00:00 AM EDT tablet [...] TABLET BY MOUTH EVERY DAY SOLD: 09/29/2020 [facility] Potassium Chloride 10 MEQ Extended Release Oral Tablet POTAS SIUM CHLORIDE 06/23/2020 12:00:00 AM EST tablet extended release 90 TAKE ONE TABLET BY MOUTH EVERY DAY TAKE ONE TABLET BY MOUTH EVERY DAY SOLD: 06/25/2020 [facility] Potassium Chloride 10 MEQ Extended Relea se Oral Tablet potassium chloride (K- DUR) 10 MEQ tablet potassium chloride (K-DUR) 10 MEQ tablet 06/22/2020 12 :00:00 AM EST 10 meq Oral active Take 1 tablet (10 mEq total) by mouth daily [facility] rivaroxaban 20 MG Oral Tablet [Xarelto] XARELTO 20 MG TABS X ARELTO 20 MG TABS 06/22/2020 12:00:00 AM EST active TAKE ONE TABLET BY MOUTH EVERY DAY [facility] tizanidine 2 MG Oral Tablet TIZANIDINE HCL [...] {tablets} active P redniSONE 10 MG eCW1 ([facility]) tizanidine 2 MG Oral Tablet Tizanidine HCl 2 MG Tizanidine H Cl 2 MG 06/16/2020 12:00:00 AM EST 1.0 {tablet_as_needed} active Tizanidine HCl 2 MG eCW1 ([facility]) tizanidine 2 MG Oral Tablet Tizanidine HCl 2 MG Tizanidine H Cl 2 MG 06/16/2020 12:00:00 AM EST 1.0 {tablet_as_needed} active Tizanidine HCl 2 MG eCW1 ([facility]) Prednisone 10 MG Oral Tablet PredniSONE 10 MG PredniSONE 10 MG 06/16/2020 12:00:00 AM EST 3.0 {tablets} active P redniSONE 10 MG eCW1 ([facility]) 40 mg 04/27/2020 12:00:00 AM EDT capsule,delayed [...] TABLET BY MOUTH EVERY DAY SOLD: 09/23/2020 [facility] Furosemide 20 MG Oral Tablet furosemide (LASIX) 20 MG tablet furosemide (LASIX) 20 MG tablet 04/21/2020 12:00:00 AM EDT activ e TAKE ONE TABLET BY MOUTH EVERY DAY [facility] 25 mg 04/13/2020 12:00:00 AM EDT tablet 45 TAKE ONE-HALF TABLET BY MOUTH EVERY DAY TAKE ONE-HALF TABLET BY MOUTH EVERY DAY SOLD: 04/22/2020 [facility] Metoprolol Tartrate 25 MG Oral Tablet me toprolol tartrate (LOPRESSOR) 25 MG tablet metoprolol tartrate (LOPRESSOR) 25 MG tablet 04/12/2020 12:0 0:00 AM EDT 12.5 mg Oral aborted Take 0.5 tablets (12.5 mg total) by mouth daily [facility] Atenolol 100 MG Oral Tablet ATENOLOL 04/01/2020 12:00:00 AM EDT table t 30 TAKE ONE TABLET BY MOUTH EVERY DAY TAKE ONE TABLET BY MOUTH EVERY DAY SOLD: 04/04/2020 [facility] 10 mEq 12/15/2019 12:00:00 AM EDT tablet,ER particles/cry stals 90 TAKE ONE TABLET BY MOUTH EVERY DAY TAKE ONE TABLET BY MOUTH EVERY DAY SOLD: 06/25/2020 [facility] rivaroxaban 20 MG Oral Tablet rivaroxaban (XARELTO) 20 MG TABS rivaroxaban (XARELTO) 20 MG TABS 12/15/2019 12:00:00 AM EDT 20 mg Oral aborted Take 1 tablet (20 mg total) by mouth daily [facility] 20 mg 12/15/2019 12:00:00 AM EDT tablet 90 TAKE ONE TABLET BY MOUTH EVERY DAY TAKE ONE TABLET BY MOUTH EVERY DAY SOLD: 03/18/2020 [facility] Potassium Chloride 10 MEQ Extended Relea se Oral Tablet potassium chloride (K- DUR) 10 MEQ tablet potassium chloride (K-DUR) 10 MEQ tablet 12/15/2019 12 :00:00 AM EDT 10 meq Oral aborted Take 1 t ablet (10 mEq total) by mouth daily [facility] Polyethylene Glycol 400 4 MG/ML / Propyl kathy glycol 3 MG/ML Ophthalmic Solution Polyethyl Glycol-Propyl Glycol (SYSTANE ULTRA) 0.4-0.3 % SOLN Polyethyl Glycol- Propyl Glycol (SYSTANE ULTRA) 0.4-0.3 % SOLN 11/26/2016 12:00:00 AM EDT aborted SYSTANE ULTRA 0.4-0.3 % SOLN [facility] Ascorbic Acid 226 MG / Beta Carotene 143 20 UNT / cuprous oxide 0.8 MG / dl-alpha tocopheryl acetate 200 UNT / Zinc Oxide 34.8 MG Oral Capsule [PreserVision] Multiple Vitamins-Minerals (PRESERVISION AREDS) CAPS Multiple Vitamins-Minerals (PRESERVISION AREDS) CAPS 04/12/2015 12:00:00 AM EDT aborted PRESERVISION AREDS CAPS [facility] tizanidine 2 MG Oral Tablet tiZANidine (ZANAFLEX) 2 MG tablet tiZANidine (ZANAFLEX) 2 MG tablet 2 mg Oral aborted Take 2 mg by mouth as needed [facility] Insurance Providers Payer name Policy type / Coverage type Policy ID Covered constitution party ID Covered constitution party's relationship to lane Policy Lane Plan Information [facility] () Workers Compensation [id number] Self A [id number] MEDICARE [id number] xxxxxxxxxxx [id number] MEDICARE [id number] [facility] [id number] Medicare [place] Med[place]ap Part B [id number] Self [id number] MEDICARE A [id number] Self [id number] [employer] (pr) Medigap Part B [id number] Self [id number] [employer] Medicare Commercial [id number] Self [id number] [facility] Medigap Part B [id number] Self [id number] [employer] Medigap Part B [id number] Self [id number] [employer] Medigap Part B [id number] Self [id number] [employer] Medigap Part B [id number] Self [id number] [employer] Medicare Medigap Part B [id number] Self [id number] [employer] Medigap Part B [id number] Self [id number] [employer] Medigap Part B [id number] Self [id number] MEDICARE COMPLETE [id number] [facility] [id number] xxxxxxxxxxx [id number] [facility] [id number] [facility] [id number] ANSI-Medicare Part B [id number] ANSI-Medicare Part B [id number] ANSI-Commercial [id number] ANSI-Sustaination [id number] ANSI-Medicare Part B [id number] ANSI-Medicare Part B [id number] ANSI-Medicare Part B [id number] ANSI-Medicare Part B [id number] ANSI-Commercial [id number] [facility] Health Care Options [facility] Part B [id number] Self [id number] Medicare [place] Medicare Primary [id number] Self [id number] ANSI-Medicare Part B [id number] ANSI-Commercial [id number] ANSI-Medicare Part B [id number] ANSI-Medicare Part B [id number] ANSI-Medicare Part B [id number] ANSI-Commercial [id number] ANSI-Medicare Part B [id number] ANSI-Medicare Part B [id number] ANSI-Commercial [id number] ANSI-Medicare Part B [id number] ANSI-Medicare Part B [id number] ANSI-Commercial [id number] ANSI-Medicare Part B [id number] ANSI-Commercial [id number] ANSI-Medicare Part B [id number] [facility] Part B [id number] [id number] Self [id number] [place] Medicare Primary [id number] Self [id number] [facility] Part B [id number] Self [id number] [place] [id number] Self [id number] [facility] [id number] 2.0.1.067235.3.227.99.936.71328.0 Self [id number] Medicare Dme Medigap Part B [id number] 2.0.1.639550.3.227.99 .936.10683.0 Self [id number] Medicare Medicare Primary [id number] 2.0.1.868501.3.227. 99.936.28900.0 Self [id number] Aar Insurance [facility] Part B [id number] 2.0.1.22196 3.3.227.99.936.37815.0 Self [id number] ANS-Medicare Part B [id number] ANSI-Medicare Part B [id number] ANSI-Commercial [id number] ANSI-Medicare Part B [id number] ANSI-Medicare Part B [id number] ANSI-Commercial [id number] MEDICARE C [id number] S [id number] A ANSI-Commercial [id number] ANSI-Medicare Part B [id number] ANSI-Medicare Part B [id number] ANSI-Commercial [id number] ANSI-Medicare Part B [id number] ANSI-Medicare Part B [id number] MEDICARE [id number] A [employer] Medigap Part B [id number] 2.0.1.178589.3.227.99.8646. 58179.0 Self [id number] Medicare [place]/[facility] Medicare Primary [id number] 2.0.1.081905.3.227.99.8646.30004.0 Self [id number] [employer] [id number] 2.0.1.015001.3.227.99.936.55718.0 Self [id number] [facility] [id number] 2.0.1.245879.3.227.99 .936.52614.0 Self [id number] Medicare Medicare Primary [id number] 2.0.1.115660.3.227. 99.936.04470.0 Self [id number] [facility] Healthcare [facility] [id number] .1.344215.3.227.99.991.33216.0 Self [id number] Medicare [place] Medicare Primary [id number] 2.0.1.817756.3.227.99.991.29108.0 Self 1 [id number] [facility] [id number] 2..1.219394.3.227 .99.991.61517.0 Self [id number] [employer] [id number] 2..1.706977.3.227.99.936.81565.0 Self [id number] Medicare Dme Medigap Part B [id number] 2.16840.1.192337.3.227.99 .936.77305.0 Self [id number] Medicare Medicare Primary [id number] 2.16840.1.957897.3.227. 99.936.81801.0 Self [id number] [employer] [id number] 2.16840.1.309323.3.227.99.936.51979.0 Self [id number] Medicare [facility] [place] [id number] 2.16840.1.803520.3.227.99 .936.74677.0 Self [id number] Medicare Medicare Primary [id number] 2.840.1.144492.3.227. 99.936.48101.0 Self [id number] [facility] Healthcare Options Medigap Part B [id number] 2.840.1.970510.3.227.99.104.754737.0 Self [id number] Medicare [place] Medicare Primary [id number] 2.840.1.552273.3.227.99.104.438521.0 Self [id number] [employer] [id number] 2.840.1.030883.3.227.99.936.83626.0 Self [id number] Medicare Medicare Primary [id number] 2.840.1.861685.3.227. 99.936.44436.0 Self [id number] MEDICARE COMPLETE-UHC O [id number] S [id number] MEDICARE COMPLETE [id number] SP [id number] MEDICARE COMPLETE [id number] SP [id number] [employer] ([facility]) [employer] [id number] 2.840.1.387850.3.227.99.991.844035.0 Self [id number] MEDICARE COMPLETE-UHC O [id number] S [id number] [employer] [id number] 2.16840.1.278552.3.227.99.936.76738.0 Self [id number] MEDICARE [id number] SP [id number] AAR HEALTH CARE OPTIONS [id number] SP [id number] MEDICARE C [id number] S [id number] AARP O [id number] S [id number] 311 AAR HEALTH CARE OPTIONS [id number] S [id number] [facility] MED[facility] DIVISION [id number] S [id number] [place]ICARE [place] [id number] S [id number] [facility] MEDICARE [id number] S [id number] [facility] [id number] S [id number] AAR HE[employer] CARE OPTIONS [id number] S [id number] [facility] MEDICARE [id number] S [id number] [place] PART B C [id number] S [id number] ANSI-Commercial [id number] ANS-Medicare Part B [id number] ANSMedicare Part B [id number] [facility] Health Care Options [facility] Part B [id number] Self [id number] Medicare [place] Medicare Primary [id number] Self [id number] Problems, Conditions, and Diagnoses Code Display Name Description Problem Type Effective Dates Data Source(s) 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 Diagnosi s 04/26/2021 02:17:00 PM EDT [facility] E04.9 Nontoxic goiter, unspecified Nontoxic goiter, unspecif ied Diagnosis 04/26/2021 02:17:00 PM EDT [facility] R06.02 Shortness of breath Shortness of breath Diagnosis 0 11/08/2020 01:10:30 PM EDT [facility] Z68.36 Body mass index (BMI) 36.0-36.9, adult B lianet mass index (BMI) 36.0-36.9, adult Diagnosis 11/08/2020 01:10:30 PM EDT [facility] E66.09 Other obesity due to excess calories Oth er obesity due to excess calories Diagnosis 11/08/2020 01:10:30 PM EDT [facility] I71.2 Thoracic aortic aneurysm, without ruptur e Thoracic aortic aneurysm, without ruptur Diagnosis 11/08/2020 01:10:30 PM EDT [facility] I48.0 Paroxysmal atrial fibrillation Paroxysmal atrial fibri llation Diagnosis 11/08/2020 01:10:30 PM EDT [facility] I10 Essential (primary) hypertension Essential (primary) h ypertension Diagnosis 10/25/2020 10:12:32 AM EDT [facility] I49.5 Sick sinus syndrome Sick sinus syndrome Diagnosis 0 10/25/2020 10:12:32 AM EDT [facility] G56.02 [id number] Carpal tunnel syndrome, left Problem 04/18/2021 12:00:00 AM EDT eCW1 ([facility]) I71.2 [id number] Ascending aortic aneurysm Problem 04/18/2021 12:00:00 AM EDT eCW1 ([facility]) 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 Problem 04/18/2021 12:00:00 AM EDT eCW1 ([facility]) Z95.0 [id number] S/P cardiac pacemaker procedure Problem 02/09/2021 12:00:00 AM EDT eCW1 ([facility]) R06.09 [id number] Chronic dyspnea Problem 09/16/2020 12:00:00 AM EST eCW1 ([facility]) I11.9 [id number] Hypertensive heart disease without heart failure Problem 08/10/2020 12:00:00 AM EST eCW1 ([facility]) M79.676 Pain in limb Pain in limb Problem 08/09/2020 12:00:00 A M EST [facility] ([facility] [id number] Cardiac pacemaker in situ Cardiac pacemaker in situ Pr oblem 06/06/2020 12:00:00 AM EST [facility] ([facility] I49.5 SSS (sick sinus syndrome) SSS (sick sinus syndrome) [id number] 05/20/2020 12:00:00 AM EST [facility] [id number] Sinus node dysfunction Sinus node dysfunction Problem 05/19/2020 12:00:00 AM EST [facility] ([facility] [id number] Paroxysmal atrial fibrillation Paroxysmal atrial fibri llation Problem 05/19/2020 12:00:00 AM EST [facility] ([facility] E05.90 [id number] Hyperthyroidism Problem 04/22/2020 12:00:00 AM EDT eCW1 ([facility]) I49.5 13841235 Tachy-julio cesar syndrome Problem 04/22/2020 12:0 0:00 AM EDT eCW1 ([facility]) I48.92 [id number] Paroxysmal atrial flutter Problem 04/22/2020 12:00:00 AM EDT eCW1 ([facility]) Surgeries/Procedures Procedure Description Date Indications Data Source(s) EXCISION NAIL MATRIX PERMANENT REMOVAL 03/30/2021 12:0 0:00 AM EDT [facility] ([facility] OFFICE OUTPATIENT VISIT 10 MINUTES 03/03/2021 12:00:00 AM EDT [facility] ([facility] LARYNGOSCOPY FLEXIBLE FIBEROPTIC DIAGNOSTIC 01/30/2021 12:00:00 AM EDT [facility] ([facility], ) OFFICE OUTPATIENT VISIT 25 MINUTES 01/30/2021 12:00:00 AM EDT [facility], [facility] Med: Derm 1% Lidocaine with Epinephrine Injection Intr adermally to marked areas 01/20/2021 12:00:00 AM EDT eCW1 ([facility]) OFFICE OUTPATIENT VISIT 15 MINUTES 12/23/2020 12:00:00 AM EDT [facility] ([facility], ) DEBRIDEMENT NAIL ANY METHOD /> 12/23/2020 12:00:00 AM EDT [facility] ([facility] OFFICE OUTPATIENT VISIT 10 MINUTES 12/23/2020 12:00:00 AM EDT [facility] ([facility] OFFICE OUTPATIENT VISIT 25 MINUTES 12/19/2020 12:00:00 AM EDT [facility] ([facility], ) Bronchospasm Evaluation 12/09/2020 12:00:00 AM EDT [facility], ) Plethysmography Determination Lung Volumes & Per Airway Resi st 12/09/2020 12:00:00 AM EDT [facility] DIFFUSING CAPACITY 12/09/2020 12:00:00 AM EDT [facility] ([facility], ) ECG ROUTINE ECG W/LEAST 12 LDS W/I&R <td>POCT AMB EKG</td><td>Routine</td><td>11/21/2020 5:34 PM EDT</td><td> Shortness of breath</td><td> </td> 11/21/2020 05:34:00 PM EDT Shortness of breath [facility] Shortness of breath BLOOD COUNT COMPLETE AUTOMATED <td>CBC</td><td>Routine</td><td>11/21/2020</td><td> Shortness of breath</td><td> </td> 11/21/2020 12:00:00 AM EDT Shortness of breath [facility] Shortness of breath Spirometry 11/15/2020 12:00:00 AM EDT M JENNIFER ([facility], ) OFFICE OUTPATIENT VISIT 25 MINUTES 11/15/2020 12:00:00 AM EDT [facility] ([facility], ) POCT AMB EKG <td>POCT AMB EKG</td><td>Rou monica</td><td>11/08/2020 7:22 PM EDT</td><td> Paroxysmal atrial fibrillation</td><td> </td> 11/08/2020 07:22:00 PM EDT Paroxysmal atrial fibrillation [facility] Paroxysmal atrial fibrillation POCT AMB EKG <td>POCT AMB EKG</td><td>Rou monica</td><td>10/25/2020 5:52 PM EDT</td><td> Paroxysmal atrial fibrillation</td><td> </td> 10/25/2020 09:52:00 PM EDT Paroxysmal atrial fibrillation [facility] Paroxysmal atrial fibrillation DEBRIDEMENT NAIL ANY METHOD 10/07/2020 12:00:00 AM EDT [facility] ([facility] THYROID STIMULATING HORMONE TSH <td>TSH</td><td>Routine</td><td>08/10/2020</td><td></td><td> </td> 08/10/2020 12:00:00 AM EST [facility] BASIC METABOLIC PANEL CALCIUM TOTAL <td>BASIC METABOLI C PANEL</td><td>Routine</td><td>08/10/2020</td><td></td><td> </td> 08/10/2020 12:00:00 AM EST [facility] DEBRIDEMENT NAIL ANY METHOD 07/29/2020 12:00:00 AM EST [facility] ([facility] ECG ROUTINE ECG W/LEAST 12 LDS W/I&R <td>POCT AMB EKG</td><td>Routine</td><td>06/22/2020 3:00 PM EST</td><td> Paroxysmal atrial fibrillation</td><td> </td> 06/22/2020 08:00:00 PM EST Paroxysmal atrial fibrillation [facility] Paroxysmal atrial fibrillation PM Programming Dual 06/06/2020 12:00:00 AM EST [facility] ([facility] BLOOD COUNT COMPLETE AUTOMATED <td>CBC</td><td>Routine</td><td>05/24/2020</td><td></td><td> </td> 05/24/2020 12:00:00 AM EST [facility] Electrocardiogram Complete 05/19/2020 12:00:00 AM EST [facility] ([facility]) LARYNGOSCOPY FLEXIBLE FIBEROPTIC DIAGNOSTIC 05/02/2020 12:00:00 AM EDT [facility] ([facility], ) LIPID PANEL <td>LIPID PANEL</td><td>Rout ine</td><td>03/31/2020</td><td></td><td> </td> 03/31/2020 12:00:00 AM EDT [facility] THYROID STIMULATING HORMONE TSH <td>TSH</td><td>Routine</td><td>03/30/2020</td><td></td><td> </td> 03/30/2020 12:00:00 AM EDT [facility] THYROXINE FREE <td>T4, FREE</td><td>Routine </td><td>03/30/2020</td><td></td><td> </td> 03/30/2020 12:00:00 AM EDT [facility] THERAPEUTIC PX 1/> AREAS EACH 15 MIN EXERCISES 020 12:00:00 AM EDT [facility] ([facility]) THERAPEUTIC PX 1/> AREAS EACH 15 MIN EXERCISES 12:00:00 AM EDT [facility] ([facility]) Results ID Date Data Source [id number] 04/26/2021 02:18:00 PM EDT [facility] ([facility]) Name Value Range Interpretation Code Description Data Maggie rce(s) Supporting Document(s) Surgical Pathology Consult Laboratory test result [facility] ([facility]) Surgical Pathology Report Name: BERNY NAYAK Collection Date: 04/26/2021 00:00 Received Date: 04/26/2021 14:20 Physician(s): GREGORY NICK MD ADJAPONG, OPOKU, MD Specimen(s) Received A: Material received for consultation, [facility], [id number], [facility] Clinical History 80-year-old woman with thyroid goiter an d left false vocal cord lesion. Diagnostic consultation. Diagnosis LARYNX, LEFT FALSE VOCAL CORD, BIOPSY ([id number], 04/20/21): SEVERE SQUAMOUS DYSPLASIA. (SEE MICROSCOPIC DESCRIPTION). 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 [...] Adenomatoid nodule(s) or nodular follicular disease [facility] August 2019 Annual Release Electronically Signed By Rios Riley M.D., Attending Pathologist 04/27/2021 15:29:28 Gross Description Received from [facility] in [place], [place] are 7 H and E stained slides and 6 paraffin blocks, labeled [id number] (A, B1, B2, B3, B4, B5), with [...] developed and their performance characteristics determined by [facility] Pathology department. They have not been cleared or approved by the US Food and Drug Administration. The FDA has determined that such clearance or approval is not necessary. ID Date Data Source [id number] 04/27/2021 03:29:00 PM [facility] Surgical Pathology ReportName: THIERRY NAYAKMRN: [id number] Number: [id number] Date: 04/26/2021 00:00Received Date: 04/26/2021 14:20Physician(s): GREGORY NICK MD ADJAPONG, OPOKU, MDSpecimen(s) ReceivedA: Material received for consultation, [facility], [id number], [facility] Tyldxdl14-otmr-pbw woman with thyroid goiter and left false vocal cord lesion. Diagnostic consultation.DiagnosisLARYNX, LEFT FALSE VOCAL CORD, BIOPSY ([id number], 04/20/21): SEVERESQUAMOUS DYSPLASIA. (SEE MICROSCOPIC DESCRIPTION).B) THYROID, RIGHT LOBE, LOBECTOMY ([id number], 04/30/17):ENCAPSULATED/WELL-CIRCUMSCRIBED FOLLICULAR VARIANT OF PAPILLARY CARCINOMA.NODULAR HYPERPLASIA. [...] Electronically Signed By Rios Riley M.D., Attending Aozgiisriew02/14/2021 15:29:[address] [facility] in [place], [place] are 7 H and Estained slides and 6 paraffin blocks, labeled [id number] (A, B1, B2, B3, B4,B5), with the [...] developed and their performance characteristics determined by [facility] Pathology department. They have not been cleared or approved by the USFood and Drug Administration. The FDA has determined that such clearanceor approval is not necessary. Name Value Range Interpretation Code Description Data Maggie rce(s) Supporting Document(s) ID Date Data Source [id number] 01/09/2021 07:19:00 AM EDT [facility] ([facility]) Name Value Range Interpretation Code Description Data Maggie rce(s) Supporting Document(s) Microscopic observation [Identifier] in Unspecified specimen by Non- gynecological cytology method Laboratory test result [facility] ([facility]) SPECIMEN: FNA Left lower isth mus/labeled left thyroid SPECIMEN ADEQUACY: Satisfactory for evaluation CATEGORIZATION: Benign DESCRIPTIONS: Scattered follicular cells noted in a background of hemosiderin laden macrophages, and scattered lymphocytes. COMMENTS: 01/10/2021942 Signed BRADLEY CRISTINA(ASCP) 01/10/202143 (Prelim) Signed KINGA DAVIS MD 01/10/2021 1356 ID Date Data Source [id number] 01/09/2021 07:18:00 AM EDT [facility] ([facility]) Name Value Range Interpretation Code Description Data Maggie rce(s) Supporting Document(s) Microscopic observation [Identifier] in Unspecified specimen by Non- gynecological cytology method Laboratory test result [facility] ([facility]) SPECIMEN: FNA Right middle is thmus/labeled right thyroid Specimen receiced in Cytolyt (light pink)/AFIRMA SPECIMEN ADEQUACY: Satisfactory for evaluation CATEGORIZATION: Benign DESCRIPTIONS: Rare follicualr groups noted in a background of hemosiderin laden macrophages and scattered lymphocytes. COMMENTS: 01/10/2021938 Signed BRADLEY CRISTINA(ASCP) 01/10/2021 0936 (Prelim) Signed KINGA DAVIS MD 01/10/2021 1356 ID Date Data Source [id number] 01/09/2021 07:15:00 AM EDT [facility] ([facility]) Name Value Range Interpretation Code Description Data Maggie rce(s) Supporting Document(s) Microscopic observation [Identifier] in Unspecified specimen by Non- gynecological cytology method Laboratory test result [facility] ([facility]) SPECIMEN: FNA Right middle is thmus/labeled right thyroid Cyotlyt (light pink) and AFIRMA brush received SPECIMEN ADEQUACY: Satisfactory for evaluation CATEGORIZATION: Benign DESCRIPTIONS: Reactive follicular cells noted in a backgound of scattered lymphocytes. COMMENTS: 01/10/2021 - 0947 Signed BRADLEY CRISTINA(ASCP) 01/10/2021 0948 (Prelim) Signed KINGA DAVIS MD 01/10/2021 1356 ID Date Data Source [id number] 12/30/2020 01:58:[address] [facility] ([facility]) Name Value Range Interpretation Code Description Data Maggie rce(s) Supporting Document(s) Parathyrin.intact [Mass/volume] in Serum or Plasma 70.0 pg/mL 18.5-88.0 Normal (applies to non-numeric results) [facility] ([facility]) ID Date Data Source [id number] 12/30/2020 01:58:[address] [facility] ([facility]) Name Value Range Interpretation Code Description Data Maggie rce(s) Supporting Document(s) Thyroglobulin Quantitative 1417.7 ng/mL 1.5-38.[address] [facility] ([facility]) Specimen was diluted in order to [...] 0.1 ng/mL . Thyroglobulin measured by Dashawn [place] Immunometric Assay Performed at: RN - [facility] [address] [id number] [place] Coordinator: Ariana Hutchison MD, Phone: [phone] Thryoglobulin Antibodies ([facility]ios) Laboratory test result 0.0-0.9 Normal (applies to non-numeric results) [facility] ([facility] ) Thyroglobulin Antibody measured by [employer] ID Date Data Source [id number] 12/30/2020 01:58:[address] [facility] ([facility]) Name Value Range Interpretation Code Description Data Maggie rce(s) Supporting Document(s) Triiodothyronine (T3) Free [Mass/volume] in Serum or Plasma 3.1 pg/mL 2.2-4.0 Normal (applies to non-numeric results) [facility] ([facility]) Calcium.ionized [Mass/volume] in Serum o r Plasma by Ion-selective membrane electrode (ISE) 4.8 mg/dL 4.5-5.3 Normal (applies to non-numeric results ) [facility] ([facility]) ID Date Data Source [id number] 12/30/2020 01:58:[address] [facility] ([facility]) Name Value Range Interpretation Code Description Data Maggie rce(s) Supporting Document(s) Free T4 0.79 ng/dL 0.76-1.46 Normal (applies to non-numeric resul ts) [facility] ([facility]) Thyroid Stimulating Hormone 0.295 uIU/ML 0.358-3.[address] [facility] ([facility]) ID Date Data Source [id number] 12/09/2020 02:58:[address] [facility] ([facility]) Name Value Range Interpretation Code Description Data Maggie rce(s) Supporting Document(s) Misc Laboratory test result [facility] ([facility]) ID Date Data Source [id number] 12/02/2020 08:12:23 AM EDT [facility] Name Value Range Interpretation Code Description Data Maggie rce(s) Supporting Document(s) &PDF [facility] AJTKCd6tImZOUjEz44/OZEylALAnr9NgAGyoIKw2ZMqbDSTiV6SvsJyqXQKWZ4KUNGzNFQZmLpWwMTAo waW [file] FRENCH TRANSLATOR/54etpFc06DjVOCFEBf9eCpIdzzQMJzNETSoP3Ze [file] ICAgICAgICAgICAgICAgICAgICAgICAgICAgICAgIC AgICAgICAgICAgICAgICAgDQogICAgICAgICAgICAgICAgICAgICAgICAgICAgICAgICAgICAgICAgIC AgICAgICAgICAgICAgICAgICAgICAgICAgICAgICAgICAgICAgICAgICAgICAgICAgICAgICAgICAgDQ ogICAgICAgICAgICAgICAgICAgICAgICAgICAgICAg ICAgICAgICAgICAgICAgICAgICAgICAgICAgICAgICAgICAgICAgICAgICAgICAgICAgICAgICAgICAg ICAgICAgICAgDQogICAgICAgICAgICAgICAgICAgICAgICAgICAgICAgICAgICAgICAgICAgICAgICAg ICAgICAgICAgICAgICAgICAgICAgICAgICAgICAgIC AgICAgICAgICAgICAgICAgICAgDQogICAgICAgICAgICAgICAgICAgICAgICAgICAgICAgICAgICAgIC AgICAgICAgICAgICAgICAgICAgICAgICAgICAgICAgICAgICAgICAgICAgICAgICAgICAgICAgICAgIC AgDQogICAgICAgICAgICAgICAgICAgICAgICAgICAg ICAgICAgICAgICAgICAgICAgICAgICAgICAgICAgICAgICAgICAgICAgICAgICAgICAgICAgICAgICAg ICAgICAgICAgICAgDQogICAgICAgICAgICAgICAgICAgICAgICAgICAgICAgICAgICAgICAgICAgICAg ICAgICAgICAgICAgICAgICAgICAgICAgICAgICAgIC AgICAgICAgICAgICAgICAgICAgICAgDQogICAgICAgICAgICAgICAgICAgICAgICAgICAgICAgICAgIC AgICAgICAgICAgICAgICAgICAgICAgICAgICAgICAgICAgICAgICAgICAgICAgICAgICAgICAgICAgIC AgICAgDQogICAgICAgICAgICAgICAgICAgICAgICAg ICAgICAgICAgICAgICAgICAgICAgICAgICAgICAgICAgICAgICAgICAgICAgICAgICAgICAgICAgICAg ICAgICAgICAgICAgICAgDQogICAgICAgICAgICAgICAgICAgICAgICAgICAgICAgICAgICAgICAgICAg ICAgICAgICAgICAgICAgICAgICAgICAgICAgICAgIC LqBAVzINPoYLDoCJKxAKAhKRRaHVIzWJEaWZm2L9wjXZYpLIDtBY2sYGq5Ln1+LQeUNkFpEUJ3coHbfA 4ABX9ch5DpIRmrHCHbs6LgYPs3GT0WYAYxEWepTR0QGZoxvn6GNRQsNUMlsTOGl1gjQvGyAKD7CVTzAk poYB4RHRGeI3jdfiImEALpXJYKIUwmOANVWH9NJhYb O4BzpT16UNLDFl4+XHukxfKvLolZAuL8ULFjo9IfGKg4PL5FONLwQWwxCP1CXJNtlZ5gKTwtLH1PGdFo IqNySVQACpCtQ97zcIOcGRi9V9SkIyNfNGRzVbjuWVUcAMlaWgHvHKBtBbNhOUngEB8+ID4+EOfbFN9V EEevibOsNLMwEm9EVGCeLJW7UJZmlEGhLpGaTUODED jiFB9TdFJqHIT8wE9dPRlkTFHiFYOnE8tRDdClvQdrCP59cWgaakQrqQUjBDm+Zl4BBN3lq7TcTHa6ye VlHYvpJUA1TPbxGCSqEHWbBVOcAIM2JCF3GNKNGdWzSEHdNNQpOTygCAYmKNMvqm2TUQXlKNBrSkM7FU YbLYFeWQXjXYyvPSQxUMN6LWs2RBLyHCClAJ2EKlAz KCFySVWyJEayYHJgZSAhoj0IDHIfHDGdQUUuPyJgJWIyDEXxPOqjEMWaCEF8YpBnORCwWZIjMO4YJgEd PVXxSBryQpPnVLKqCPKksm9RWJXoKXGyTjV1PXDlAEGrMZCeXRqrOXCpVPX4VIF7FVQiNZJiAB1CMkEl GBIrOGf4HcOhWKSuQUXhuf1JAUPuETUePJjaQjEaPN FwLDHqNAkzEIBhDBL6AmY1RCHcNZAjXM5VGdJfQEMnZGf4JwmgRZJdPFDzlk7NXREmLCStBUJ1RPOrLQ YyLHSqLWuyBDXrZWMaJQGfLOEnYFRbWN2ZQbEoPNFiWWCcRTCcUPFpJJNren5YOJQoAHHkGMY9VONkAH PfYZVpNCynNQEkWZNoRXK0ARJbJDYoRB0BUpHsFESo ZKN9IZvpLULkETKjfo4OYOJmAUXeKta8TcGrRANzRJFyJQcqSSNbZHPsOSKiDFGaUZHjDG2YMgMtDQOs IIM1PvRdPLWvXAEkiy0NLVZfSEYgAuk9PFCvIJYeMYChOFpqIQJkQNK2ZQV4FXXcWEZdZM5BHpEkTHXt NDUeXkQrDNOfQZRajm4LLWFwDZXuQAN6PZYrDGAgTC DuSSjdOPYqDKT2JCZqUXYmUAYsEC4PUiEeFPThJAYrOTHoKZLrWNYyry5XGYWlMUZmADMnJgRuLRUzSV YoFMnrYTWlJIB7RIA6AMPfMQLbZG5GBaHrTUDsLMW9SiUiIAQlVEUade5XWUJbTAMiJpMwMXNbDMXwUT ShKUgrFPByJJX7NsE6KBQvOBNnZQ7KWlYxEZEkBBoy EXYzUUPyUDUbqm5WaXZtoWjncc7KNSbGUm6ReQmcNJP1LQnuQj8euSQfEKNuNQKRSe4IksJfGMSyANDD ODioZORhMOoiRwOaIuVrJKHjBZe3ChRcVhGuIQNuSMWjVOF6ORI2SpK1APDpTkBcVQB4G1N2Voy4MPSv BFM2Y2RaVxG8AVz2DOZ+AS3gFCn+Jo5Yb6AhfpO7dmGzNIkaAFP9JB5EYMETW1TAZx== ID Date Data Source [id number] 11/15/2020 12:57:00 PM EDT [facility] ([facility]) Name Value Range Interpretation Code Description Data Maggie rce(s) Supporting Document(s) PDFReport Laboratory test result MEDENT ([facility]) FVC-Pre 1.45 L MEDENT ([facility]) FVC-%Pred-Pre 54 L MEDENT ([facility]) FVC-Pred 2.65 L MED[facility] ([facility]) FVC-LLN 1.93 L [facility] ([facility]) Fev1-Pred 1.97 L [facility] ([facility]) Fev1-Pre 1.26 L MED[facility] ([facility]) Fev1-%Pred-Pre 64 L MEDENT ([facility]) Fev1-LLN 1.36 L MED[facility] ([facility]) Fev6-Pred 2.50 L MEDENT ([facility], ) Fev6-Pre 1.45 L MEDENT ([facility]) Fev6-%Pred-Pre 58 L MEDENT ([facility]) Hlu7gpq-Nyi 87 % MEDENT ([facility]) Fev6-LLN 1.80 L MED[facility] ([facility]) Fou0tpq-Uatv 73 % MED[facility] ([facility]) Aax0cdd-Qtci 94 % MED[facility] ([facility]) Qyc2feh-DYI 64 % MED[facility] ([facility]) Jsk1meo-%Pred-Pre 118 % MEDENT ([facility]) Vck4fib-%Pred-Pre 105 % MED[facility] ([facility]) FEFMax-Pred 4.75 L/E/sec MEDENT ([facility]) Ica5bdm-Pfz 100 % MEDENT ([facility]) FEFMax-LLN 2.98 L/E/sec MED[facility] ([facility]) FEFMax-Pre 5.30 L/E/sec MED[facility] ([facility]) FEFMax-%Pred-Pre 111 L/E/sec MEDENT ([facility]) Abq0431-%Pred-Pre 123 L/E/sec MEDENT ([facility]) Bgi5688-KDN 0.08 L/E/sec MEDENT ([facility]) Jur1626-Necr 1.36 L/E/sec MEDENT ([facility]) Trr6641-Yen 1.69 L/E/sec MEDENT ([facility]) ExpTime-Pre 5.89 sec MEDENT ([facility]) Pqh6bdj7-Nszl 77 % MEDENT ([facility]) Ayo8svf0-Qbk 87 % MED[facility] ([facility]) Tya4ebw8-TKA 68 % MED[facility] ([facility]) Pac9xvg0-%Pred-Pre 112 % MEDENT ([facility], ) ID Date Data Source [id number] 11/09/2020 08:27:54 PM EDT [facility] Name Value Range Interpretation Code Description Data Maggie rce(s) Supporting Document(s) FREE THYROXINE @ 0.99 ng/dL (0.76-1.46) [facility] ID Date Data Source [facility] CHEST 2 VIEW 11/03/2020 12:00:00 AM EDT eCW1 ([facility]) Name Value Range Interpretation Code Description Data Maggie rce(s) Supporting Document(s) Laboratory studies (set) [facility] CHEST 2 VIEW eCW1 ([facility]) ID Date Data Source [id number] 09/30/2020 11:23:23 AM EDT [facility] Name Value Range Interpretation Code Description Data Maggie rce(s) Supporting Document(s) &PDF [facility] NZBMLv6oQdUSTzFb76/BBHceDBVwx1VqTYxaIUc5AJgmKYNiE3VwgNpwYYFKJ9SQFOcPYAZzZkWhZAZb waW [file] ICAgICAgICAgICAgICAgICAgICAgICAgICAgICAgICAgICAgICAgICAgICAgICAgICAgICAgICAgICAg STFfUGDjWUWpHY6UKHLaKXUsGXBbEXVyEXHhVIUeYA AgICAgICAgICAgICAgICAgICAgICAgICAgICAgICAgICAgICAgICAgICAgICAgICAgICAgICAgICAgIC LgHPLgALBzQEPxDLTaDOPpGFUeLY2YLFIgYSTlFRQvUNGwZQTkUCPgKCGaVWFbHRWfCIKbHXTyZGNzHR AgICAgICAgICAgICAgICAgICAgICAgICAgICAgICAg SSAnQHBbUUJjZLJaAELfGMHkMQYfQDUcQFCiKMCtUK5MBNHdDUZvHMQzSDAjXXKaSGGtVLCbONYkKDQx ICAgICAgICAgICAgICAgICAgICAgICAgICAgICAgICAgICAgICAgICAgICAgICAgICAgICAgICAgICAg XCThEUZqJJPoCKZiOI2WOPOnWJIwOXQtESKhTCDhVF AgICAgICAgICAgICAgICAgICAgICAgICAgICAgICAgICAgICAgICAgICAgICAgICAgICAgICAgICAgIC PyVKNcSRLnBLUyOZVbMIQqYCWzHRNuGU8FOZPdLKSpIJIjJJFrQHQuZMJgFFTsOYZjAHHfOUTgDMDnJX AgICAgICAgICAgICAgICAgICAgICAgICAgICAgICAg VZNeXILsRSYyCUJuWBGzRZYfQHIrKTEvEXZaLBRbZXBhPQ1UUUZsTSTuVYLyZIZqAQYcIYEsCFGrYIIj ICAgICAgICAgICAgICAgICAgICAgICAgICAgICAgICAgICAgICAgICAgICAgICAgICAgICAgICAgICAg WFNvQFNsYXQlHJXcUEBcCA4ZUZEcIYPkWVGeALRlOP AgICAgICAgICAgICAgICAgICAgICAgICAgICAgICAgICAgICAgICAgICAgICAgICAgICAgICAgICAgIC FaKKIhGOXjVHLiCJYbHIZdNQCjKCBdVAJgJK4YYXQkHNOkYTJfKKOdTNEsUHXkCDNpIYXxRBQyTUKfYA AgICAgICAgICAgICAgICAgICAgICAgICAgICAgICAg MPGsXNRzSVSiEPVnGXMbPBAcMPMpSOMuUEDoOUBcWNQaVTWaDN5GJKMvVMYsCAYuFKMtVJBtXTSlFFTq ICAgICAgICAgICAgICAgICAgICAgICAgICAgICAgICAgICAgICAgICAgICAgICAgICAgICAgICAgICAg TTEmQHFuOEIfJRQxIKEqXRArCS9HFB81vWNvp0H6IP ZlQO7durc/Gc6KODnwyrFttKZmOW7UYfJtOV5bhq8JXpFrCN1eyy4PTKnDMvYnG2P1wBDhIKUpVWXUKe YoS87mVPegKk47LInvCJBoSyUaVFn9Lv2QRuMgF4hxFRLrWzA1FJCyMjApSPynYP1He2AnuJGtSJy+Pg 9JSE8qq5MeZMaaVYZnAI9yfv3CLNcOPeShJ0I9eSRy L3T8TFqkZz5POAWtRGMaWOswXSUUASnnXA1RFV2wpjF8VX8GlBDwFNBaDOHteULxGZc1U39mtMVrWVke QV2RQIQ+Sherry+We8TJBDpOWTmOAWnFqSuQMRLExYeY16ovSHvQVHqXLZ6XDRdSk0KZNEeF2ZaahIjkWzt auLtPSHbZYRFJZ3ZZHpufnDlbZKggYycQJ45iNcrXV 1EAn6KKjCvSG5gtz6OjVCtTl5OJKQzCY0BSSHrRYYpEVMsCXQ1OXYfFvXpHFdtDYRiWEBpRLX0MRTmQG YhZM3AMiDuUQVbMUU0TOJqMVGrAOEffo7AYESePKTiDbW0XEEcVBWjHVHrQTbqHEGvHVExHLd9EOYrAR TvKH1TJtWgZGYeDHS9GTNhXDQxSQRtka6QRIYlQAWs Szr1DGPcCCFnCPBxAUvxVJAvGOImLJB3LUUlAVJfYD7VZjYaMDBoZVQbGBGmAAXnXSZgxa7QFYVuJEXa SHH5QcQaTCKzBBXnUMmtBVTvDNF1CbQaREYuJOKaSR6YDjIsVQDtQBR9OAZvVGJdDAEbxh4LPPVmWFFp BQToXPIpTIIsCRNkMMbgCCLrKCE7LOd9DIOxVYLpJG 7TWwKdRQZoUEY1IOxgWTJpTRIzwa3WLBBgPDBfQjn4AGCaWYLzWIBdXVaeJBWdJTRiOoQ0FWFkRAOeJE 8SQgVbHJRxTPL8QYWbVYKiPXKfaj4PCEBaGSUnOzSqCRThLEYkBTXbBTkoWQJuSJE8KTXyYWRrCFHvZS 1JHuReWUhfQNTHTio1WBkjS3k9VWJqRM1HL1Zzi1Ch WQkaCQXAGNyfXH1ynjTqLODqUw6AO9jYEwv9OGL4YzfwQiLbHYZaODY0QcQfICG9ROT1FUAwDpXcQW8s UKq2KTTqWKYcREEzY9QhJucyQODpAElyCZp3PvC4NTPsJeDbQL2PTm9LRjY0VOJ8yHDeQu3NEBs1JpmZ TxRbRL9ANTe= ID Date Data Source FREE T4 & TSH PANEL 08/10/2020 12:00:00 AM EST eCW1 ([facility]) Name Value Range Interpretation Code Description Data Maggie rce(s) Supporting Document(s) 0.354 0.358-3.740 THYROID STIMULATING HORM ONE eCW1 ([facility]) 0.82 0.76-1.46 FREE T4 eCW1 ([facility]) ID Date Data Source FREE T3 08/10/2020 12:00:00 AM EST eCW1 ([facility]) Name Value Range Interpretation Code Description Data Maggie rce(s) Supporting Document(s) 3.0 2.2-4.0 [facility] ([facility]) ID Date Data Source [id number] 07/02/2020 10:41:48 AM EST [facility] Name Value Range Interpretation Code Description Data Maggie rce(s) Supporting Document(s) &PDF [facility] NHUGFy0qZfAXNoBw79/CKGweDXAfi6NsKWohEFa3YVosQBSoW1UajXpjZNFTA8YAMKfGTHPfJcZiBQOh [facility] [file] AgICAgICAgICAgICAgICAgICAgICAgICAgICAgICAgICAgICAgICAgICAgICAgICAgICAgICAgICAgIC AgICAgICAgICAgICAgICAgICAgICAgDQogICAgICAg ICAgICAgICAgICAgICAgICAgICAgICAgICAgICAgICAgICAgICAgICAgICAgICAgICAgICAgICAgICAg ICAgICAgICAgICAgICAgICAgICAgICAgICAgICAgICAgDQogICAgICAgICAgICAgICAgICAgICAgICAg ICAgICAgICAgICAgICAgICAgICAgICAgICAgICAgIC AgICAgICAgICAgICAgICAgICAgICAgICAgICAgICAgICAgICAgICAgICAgDQogICAgICAgICAgICAgIC AgICAgICAgICAgICAgICAgICAgICAgICAgICAgICAgICAgICAgICAgICAgICAgICAgICAgICAgICAgIC AgICAgICAgICAgICAgICAgICAgICAgICAgDQogICAg ICAgICAgICAgICAgICAgICAgICAgICAgICAgICAgICAgICAgICAgICAgICAgICAgICAgICAgICAgICAg ICAgICAgICAgICAgICAgICAgICAgICAgICAgICAgICAgICAgDQogICAgICAgICAgICAgICAgICAgICAg ICAgICAgICAgICAgICAgICAgICAgICAgICAgICAgIC AgICAgICAgICAgICAgICAgICAgICAgICAgICAgICAgICAgICAgICAgICAgICAgDQogICAgICAgICAgIC AgICAgICAgICAgICAgICAgICAgICAgICAgICAgICAgICAgICAgICAgICAgICAgICAgICAgICAgICAgIC AgICAgICAgICAgICAgICAgICAgICAgICAgICAgDQog ICAgICAgICAgICAgICAgICAgICAgICAgICAgICAgICAgICAgICAgICAgICAgICAgICAgICAgICAgICAg ICAgICAgICAgICAgICAgICAgICAgICAgICAgICAgICAgICAgICAgDQogICAgICAgICAgICAgICAgICAg ICAgICAgICAgICAgICAgICAgICAgICAgICAgICAgIC AgICAgICAgICAgICAgICAgICAgICAgICAgICAgICAgICAgICAgICAgICAgICAgICAgDQogICAgICAgIC AgICAgICAgICAgICAgICAgICAgICAgICAgICAgICAgICAgICAgICAgICAgICAgICAgICAgICAgICAgIC AgICAgICAgICAgICAgICAgICAgICAgICAgICAgICAg GOy6S6ksPVCiJEBkGO0uRGz9Gw0+LDzLApHlLVN4htJzgC9UZR9nr1QdZKiqNAJjm1XxGNh2QV2JIUZv MRquRW2UJCiwgn4AESQdFDVmrTZPi6swIbXhHRW6FVRqJyqoIX4QOSQrI0lrzaQdPQQbHXKXSVhqBWIX SC9EAnAyM2HhuH16RMBYMj5+DQplbmRvYmoNCjIxID Xpy9NmZLi9MZ8JZDQaIJkeNA9ZFUFvwR5bQKwnXQ2JBcNqJEBgLIXBDfSbX77jyMZrKCk4R2GkQlLmZT VkRmlsZXMgPDwvTmFtZXMgWyBdDQogID4+ID4+UEnvMR7KMBysyeEfHQKkVg6JUXTlHWL4CSJpiHGnBq OxCGILOTxnTQ3EtPMrIOP9kE7iCGbzNELhUPGcZ6qC VuUjnXyfNR05rFtdwlLyrKFdGJh+Sn5LXH9zy6ZeOXw7otPwJNwmHUYwCJlvYKAsNXTmLXPgLZV6VSQ5 NYLBOqNwZRXsDNXyNXqwRPDzDOEmhl8DFMKaGMVoHhy1DKYjRKJiMSRtAXlpQNLqNBZ2UIC4FUVuZANc JE0QMrQoBBPfELTmQPWeXCTdSZVuwp6AUGOaJDNxFh T9LVMaFITiDWRxPAciCZExVKAcVbE0YZGoCTFcFM6WJcSrLZJtTHT3EWThOQSzOUOxdd3EMBHuBMXwDL TpHvJyCGHlWZSwVLqqXPNuMIN2RMq7FDOoLMQnJW2WKbZdXHKbQHDkSbLwAXAuJUIkuk4SUQVdIHKoMM S7XqXjPSRvQKHuZUlaRTVqHEP9JcAyRYDvEWLrXL6S NyNaTVTjSLV7FVLeRNLcTZNjkb2TUEOwMMRlXytqDjMnMIXeFSViCTchBGBhSYY7HzIwVSHmPQGsCL0W FzZiWKOmVWm2VnZoFROqPMSvvl6KJRPvDMFxOWD8NmYpLLBqLUSpHIjlTLRkZRSuQeY3GUYfADZuWY0C QbZuRETfCMN7CYSyHVXlLOAybu0GIEFbTXFtFcN0Zo BlODHvHEIiZRboCFXcDAM2JaPkZKCwJZHvDB9DHqLzBZljMLSGSgi0VEhdG9i6VLWoMn3IQ3Lqt9SbQk LyJCUPMZaqHU0gofUrNYFhWu3CL0sZSgg8ZaUbXrN0HjarJJG0GaYeYBFtPbcrVGB0MHT4WBu8Ab7zSV RfLbCgVQObOZCzWDqzK5F7PMBdYPMeObk4Yya2NlU2 IaNzUI9TRc5GIsS0HQG0wNPrJg9UNXd8SNhBJqIoVV5EKQw= ID Date Data Source [id number] 05/30/2020 03:48:06 PM EST [address] [address]Ieygrkq Name: BERNY LOPEZ: 1940Sex: FOrdering Provider: Veronica Websterhoheike Prov: Veronica GUERRARefpaulina Provider: Procedure Performed: XR CHEST PORTABLEExam Date: 05/30/2020 15:43MRN: [id number] Number: [id number] Class: OutpatientAccount #: [id number] for Exam: ppmTechnique: AP portable view obtained.Comparison: [...] KELLEN VALENCIA On 05/30/2020 3:48 PMWorkstation ID: [id number] Name Value Range Interpretation Code Description Data Maggie rce(s) Supporting Document(s) ID Date Data Source [id number] 05/30/2020 03:24:26 PM EST [facility] Name Value Range Interpretation Code Description Data Maggie rce(s) Supporting Document(s) &PDF [facility] QPDMAh9zLqWPNlLk39/EPZkfBSBju5MnVWsfVPm3ZVvwPVOcC7UcgMtxLXAYC6YNVUmNVQVjTiApFETp FcG [file] Fj4IRnC0EGZ8mLVsBf8DLKv6MFNVGnMaVS9HNUz= ID Date Data Source [id number] 05/25/2020 10:00:00 AM EST [facility] Name Value Range Interpretation Code Description Data Maggie rce(s) Supporting Document(s) SARS coronavirus 2 RNA [facility] This lab was ordered by [facility] and reported by [facility]. ID Date Data Source [id number] 05/09/2020 12:51:00 PM EDT MEDENT ([facility]) Name Value Range Interpretation Code Description Data Maggie rce(s) Supporting Document(s) Microscopic observation [Identifier] in Unspecified specimen by Non- gynecological cytology method Laboratory [facility] SPECIMEN: FNA Left thyroid Specimen receceived in Cytolyt SPECIMEN ADEQUACY: Satisfactory for evaluation CATEGORIZATION: No Malignancy identified DESCRIPTIONS: Scattered groups of follicular cells, some with hurthle cell changes and rare cell with degenerative atypia, seen in a background of foamy macrophages and debris. COMMENTS: 05/10/20201434 Signed BRADLEY CRISTINA CT(ASCP) 05/10/2020 0738 (Prelim) Signed Glen Rubio MD 05/10/20201434 ID Date Data Source [id number] 05/09/2020 12:50:00 PM EDT [facility] ([facility]) Name Value Range Interpretation Code Description Data Maggie rce(s) Supporting Document(s) Microscopic observation [Identifier] in Unspecified specimen by Non- gynecological cytology method Laboratory test result [facility] ([facility]) SPECIMEN: FNA Isthmus nodule Specimen received in Cytolyt SPECIMEN ADEQUACY: Satisfactory for evaluation CATEGORIZATION: No Malignancy identified DESCRIPTIONS: Groups of follicular cells noted in a background of macrophages and several multinucleated histiocytes/giant cells. COMMENTS: 05/10/20201436 Signed BRADLEY CRISTINA(ASC) 05/10/2020 07 (Prelim) Signed Glen Rubio MD 05/10/20201436 ID Date Data Source [id number] 05/09/2020 12:49:00 PM EDT [facility] ([facility]) Name Value Range Interpretation Code Description Data Maggie rce(s) Supporting Document(s) Microscopic observation [Identifier] in Unspecified specimen by Non- gynecological cytology method Laboratory test result [facility] ([facility]) SPECIMEN: FNA Right thyroid Specimen received [...] clinical findings is recommended. See also reports [id number] and [id number] 05/10/2020 1445 Signed BRADLEY CRISTINA(ASCP) 05/10/2020 0725 (Prelim) Signed Glen Rubio MD 05/10/2020 1445 Procedure Social History Code Duration Value Status Description Data Source(s ) Smoking 04/18/2021 12:00:00 AM EDT Never Smoker completed Never S moker eCW1 ([facility]) Smoking 04/18/2021 12:00:00 AM EDT Never Smoker completed Never S moker eCW1 ([facility]) Smoking 02/09/2021 12:00:00 AM EDT Never Smoker completed Never S moker eCW1 ([facility]) Smoking 02/09/2021 12:00:00 AM EDT Never Smoker completed Never S moker eCW1 ([facility]) Smoking 02/09/2021 12:00:00 AM EDT Never Smoker completed Never S moker eCW1 ([facility]) Smoking 01/20/2021 12:00:00 AM EDT Never Smoker completed Never S moker eCW1 ([facility]) Smoking 12/19/2020 12:00:00 AM EDT Patient has never smoked co mpleted Patient has never smoked MEDENT ([facility]) Alcohol intake 12/14/2020 12:00:00 AM EDT Lifetime non-drinker (finding) completed Lifetime non-drinker (finding) [facility] Alcohol intake 11/21/2020 12:00:00 AM EDT Lifetime non-drinker (finding) completed Lifetime non-drinker (finding) [facility] Alcohol intake 11/08/2020 12:00:00 AM EDT Lifetime non-drinker (finding) completed Lifetime non-drinker (finding) [facility] Smoking 11/03/2020 12:00:00 AM EDT Never Smoker completed Never S moker eCW1 ([facility]) Smoking 11/03/2020 12:00:00 AM EDT Never Smoker completed Never S moker eCW1 ([facility]) Smoking 11/03/2020 12:00:00 AM EDT Never Smoker completed Never S moker eCW1 ([facility]) Smoking 09/16/2020 12:00:00 AM EST Never Smoker completed Never S moker eCW1 ([facility]) Smoking 09/16/2020 12:00:00 AM EST Never Smoker completed Never S moker eCW1 ([facility]) Smoking 09/16/2020 12:00:00 AM EST Never Smoker completed Never S moker eCW1 ([facility]) Smoking 09/16/2020 12:00:00 AM EST Never Smoker completed Never S moker eCW1 ([facility]) Smoking 08/10/2020 12:00:00 AM EST Never Smoker completed Never S moker eCW1 ([facility]) Smoking 06/16/2020 12:00:00 AM EST Never Smoker completed Never S moker eCW1 ([facility]) Smoking 06/16/2020 12:00:00 AM EST Never Smoker completed Never S moker eCW1 ([facility]) Alcohol intake 05/31/2020 12:00:00 AM EST Never completed [facility] Smoking 05/31/2020 12:00:00 AM EST Never smoker completed Never s moker [facility] Smoking 04/22/2020 12:00:00 AM EDT Never Smoker completed Never S moker eCW1 ([facility]) Smoking 04/22/2020 12:00:00 AM EDT Never Smoker completed Never S moker eCW1 ([facility]) Vital Signs ID Date Data Source UNK Name Value Range Interpretation Code Description Data Source(s) Body height 65 [in_i] 65 [in_i] LAWSON ([facility], ) 5'5" Body weight 208.00 [lb_av] 208.00 [lb_av] CALLUM Owsald ([facility], ) Body mass index (BMI) [Ratio] 34.6 kg/m2 34.6 k g/m2 LAWSON ([facility], ) [place] body weight 125 [lb_av] 125 [lb_av] JANAEEN T ([facility]) Body weight 94.349 kg 94.349 kg [facility] Body surface area Derived from formula 2.[address] [facility] ([facility]) Body weight 216 [lb_av] 216 [lb_av] eCW1 ([facility]) Body height [in_i] eCW1 ([facility]) Body mass index (BMI) [Ratio] 37.66 kg/m2 37.66 kg/m2 eCW1 ([facility]) Heart rate 60 /min 60 /min eCW1 ([facility]) Respiratory rate 18 /min 18 /min eCW1 ([facility]) Body temperature 96.4 [degF] 96.4 [degF] eCW1 ( [facility]) Systolic blood pressure 150 mm[Hg] 150 mm[Hg] e CW1 ([facility]) Diastolic blood pressure 82 mm[Hg] 82 mm[Hg] eCW1 ([facility]) Body weight 213 [lb_av] 213 [lb_av] eCW1 ([facility]) Body height [in_i] eCW1 ([facility]) Body mass index (BMI) [Ratio] 37.14 kg/m2 37.14 kg/m2 eCW1 ([facility]) Heart rate 60 /min 60 /min eCW1 ([facility]) Respiratory rate 19 /min 19 /min eCW1 ([facility]) Body temperature 98 [degF] 98 [degF] eCW1 ([facility]) Systolic blood pressure 110 mm[Hg] 110 mm[Hg] e CW1 ([facility]) Diastolic blood pressure 74 mm[Hg] 74 mm[Hg] eCW1 ([facility]) Body mass index (BMI) [Ratio] 35.8 kg/m2 35.8 k g/m2 [facility]) Body surface area Derived from formula 2.[address] [facility] ([facility]) Body weight 215.00 [lb_av] 215.00 [lb_av] MEDEN T ([facility]) Body height 65 [in_i] 65 [in_i] MEDENT ([facility]) 5'5" [place] body weight 125 [lb_av] 125 [lb_av] MEDEN T ([facility]) Body weight 97.524 kg 97.524 kg MED[facility] ([facility]) Body weight 215.2 [lb_av] 215.2 [lb_av] eCW1 ([facility]) Body mass index (BMI) [Ratio] 37.52 kg/m2 37.52 kg/m2 W1 ([facility]) Body height [in_i] eCW1 ([facility]) Systolic blood pressure 130 mm[Hg] 130 mm[Hg] e CW1 ([facility]) Diastolic blood pressure 68 mm[Hg] 68 mm[Hg] eCW1 ([facility]) Body height 65 [in_i] 65 [in_i] MEDENT ([facility]) 5'5" Body weight 216.00 [lb_av] 216.00 [lb_av] MEDEN T ([facility]) Body mass index (BMI) [Ratio] 35.9 kg/m2 35.9 k g/m2 [facility] ([facility]) [place] body weight 125 [lb_av] 125 [lb_av] MEDEN T ([facility]) Body weight 97.[address] [facility] ([facility]) Body surface area Derived from formula 2.[address] [facility] ([facility]) Body height 65 [in_i] 65 [in_i] MEDENT ([facility]) 5'5" Body surface area Derived from formula 2.[address] [facility] ([facility]) Body weight 216.00 [lb_av] 216.00 [lb_av] MEDEN T ([facility]) Body mass index (BMI) [Ratio] 35.9 kg/m2 35.9 k g/m2 [facility] ([facility]) [place] body weight 125 [lb_av] 125 [lb_av] MEDEN T ([facility]) Body weight 97.[address] [facility] ([facility]) Body temperature 97.0 [degF] 97.0 [degF] [facility] ([facility]) Systolic blood pressure 120 mm[Hg] 120 mm[Hg] M EDENT ([facility]) Diastolic blood pressure 70 mm[Hg] 70 mm[Hg] [facility] ([facility]) Heart rate 79 /min 79 /min [facility] ([facility]) Oxygen saturation in Arterial blood by Pulse oximetry 94 % 94 % [facility] ([facility]) Body height 65 [in_i] 65 [in_i] [facility] ([facility]) 5'5" Body weight 216.00 [lb_av] 216.00 [lb_av] MEDEN T ([facility]) Body mass index (BMI) [Ratio] 35.9 kg/m2 35.9 k g/m2 [facility] ([facility]) [place] body weight 125 [lb_av] 125 [lb_av] [facility] Body weight 97.[address] [facility] ([facility]) Body surface area Derived from formula 2.[address] [facility] ([facility]) Systolic blood pressure 146 mm[Hg] 146 mm[Hg] [facility] Diastolic blood pressure 90 mm[Hg] 90 mm[Hg] [facility] Heart rate 60 /min 60 /min [facility] Body height 165.1 cm 165.1 cm [facility] Body weight 98.431 kg 98.431 kg [facility] Body mass index (BMI) [Ratio] 36.11 kg/m2 36.11 kg/m2 [facility] Oxygen saturation in Arterial blood by Pulse oximetry 95 % 95 % [facility] Systolic blood pressure 160 mm[Hg] 160 mm[Hg] [facility] Diastolic blood pressure 90 mm[Hg] 90 mm[Hg] [facility] Heart rate 65 /min 65 /min [facility] Body height 165.1 cm 165.1 cm [facility] Body weight 100.245 kg 100.245 kg [facility] Body mass index (BMI) [Ratio] 36.78 kg/m2 36.78 kg/m2 [facility] Oxygen saturation in Arterial blood by Pulse oximetry 95 % 95 % [facility] [place] body weight 125 [lb_av] 125 [lb_av] MEDEN T ([facility], ) Body mass index (BMI) [Ratio] 36.9 kg/m2 36.9 k g/m2 [facility] ([facility], ) Body weight 222.00 [lb_av] 222.00 [lb_av] [facility], [facility] Body weight 100.[address] [facility] ([facility]) Body surface area Derived from formula 2.[address] [facility] ([facility], ) Systolic blood pressure 132 mm[Hg] 132 mm[Hg] EDENT ([facility], ) Diastolic blood pressure 78 mm[Hg] 78 mm[Hg] [facility] ([facility], ) Heart rate 60 /min 60 /min [facility] ([facility], ) Oxygen saturation in Arterial blood by Pulse oximetry 98 % 98 % [facility] ([facility], ) Body temperature 96.7 [degF] 96.7 [degF] [facility] ([facility], ) Body height 65 [in_i] 65 [in_i] [facility] ([facility]) 5'5" Diastolic blood pressure 90 mm[Hg] 90 mm[Hg] [facility] Body mass index (BMI) [Ratio] 36.94 kg/m2 36.94 kg/m2 [facility] Oxygen saturation in Arterial blood by Pulse oximetry 94 % 94 % [facility] Systolic blood pressure 136 mm[Hg] 136 mm[Hg] [facility] Heart rate 75 /min 75 /min [facility] Body height 165.1 cm 165.1 cm [facility] Body weight 100.699 kg 100.699 kg [facility] Body weight 221 [lb_av] 221 [lb_av] eCW1 ([facility]) Body height [in_i] eCW1 ([facility]) Body mass index (BMI) [Ratio] 38.53 kg/m2 38.53 kg/m2 W1 ([facility]) Heart rate 77 /min 77 /min eCW1 ([facility]) Respiratory rate 18 /min 18 /min eCW1 ([facility]) Body temperature 97.7 [degF] 97.7 [degF] eCW1 ( [facility]) Systolic blood pressure 123 mm[Hg] 123 mm[Hg] e CW1 ([facility]) Diastolic blood pressure 79 mm[Hg] 79 mm[Hg] eCW1 ([facility]) Body weight 100.517 kg 100.517 kg [facility] Heart rate 74 /min 74 /min [facility] Body height 165.1 cm 165.1 cm [facility] Systolic blood pressure 126 mm[Hg] 126 mm[Hg] [facility] Diastolic blood pressure 68 mm[Hg] 68 mm[Hg] [facility] Body mass index (BMI) [Ratio] 36.88 kg/m2 36.88 kg/m2 [facility] Oxygen saturation in Arterial blood by Pulse oximetry 98 % 98 % [facility] Body weight 216 [lb_av] 216 [lb_av] eCW1 ([facility]) Body height [in_i] eCW1 ([facility]) Body mass index (BMI) [Ratio] 37.66 kg/m2 37.66 kg/m2 eCW1 ([facility]) Heart rate 66 /min 66 /min eCW1 ([facility]) Respiratory rate 19 /min 19 /min eCW1 ([facility]) Body temperature 97.8 [degF] 97.8 [degF] eCW1 ( [facility]) Systolic blood pressure 143 mm[Hg] 143 mm[Hg] e CW1 ([facility]) Diastolic blood pressure 71 mm[Hg] 71 mm[Hg] eCW1 ([facility]) Body height [in_i] eCW1 ([facility]) Body weight 217 [lb_av] 217 [lb_av] eCW1 ([facility]) Body mass index (BMI) [Ratio] 37.83 kg/m2 37.83 kg/m2 eCW1 ([facility]) Heart rate 62 /min 62 /min eCW1 ([facility]) Respiratory rate 18 /min 18 /min eCW1 ([facility]) Body temperature 98 [degF] 98 [degF] eCW1 ([facility]) Systolic blood pressure 152 mm[Hg] 152 mm[Hg] e CW1 ([facility]) Diastolic blood pressure 84 mm[Hg] 84 mm[Hg] eCW1 ([facility]) Systolic blood pressure 142 mm[Hg] 142 mm[Hg] [facility] Diastolic blood pressure 60 mm[Hg] 60 mm[Hg] [facility] Heart rate 60 /min 60 /min [facility] Body height 165.1 cm 165.1 cm [facility] Body weight 100.245 kg 100.245 kg [facility] Body mass index (BMI) [Ratio] 36.78 kg/m2 36.78 kg/m2 [facility] Oxygen saturation in Arterial blood by Pulse oximetry 98 % 98 % [facility] Body weight 219 [lb_av] 219 [lb_av] eCW1 ([facility]) Body height [in_i] eCW1 ([facility]) Body mass index (BMI) [Ratio] 38.18 kg/m2 38.18 kg/m2 eCW1 ([facility]) Heart rate 60 /min 60 /min eCW1 ([facility]) Respiratory rate 18 /min 18 /min eCW1 ([facility]) Body temperature 98.9 [degF] 98.9 [degF] eCW1 ( [facility]) Systolic blood pressure 136 mm[Hg] 136 mm[Hg] e CW1 ([facility]) Diastolic blood pressure 79 mm[Hg] 79 mm[Hg] eCW1 ([facility]) Body weight 214.00 [lb_av] 214.00 [lb_av] MEDEN T ([facility]) [place] body weight 125 [lb_av] 125 [lb_av] MEDEN T ([facility]) Body weight 97.[address] [facility] ([facility]) Body surface area Derived from formula 2.[address] [facility] ([facility]) Body height 65 [in_i] 65 [in_i] [facility] ([facility]) 5'5" Body mass index (BMI) [Ratio] 35.6 kg/m2 35.6 k g/m2 [facility] ([facility]) Body weight 218.38 [lb_av] 218.38 [lb_av] MEDEN T ([facility]) Body mass index (BMI) [Ratio] 37.3 kg/m2 37.3 k g/m2 [facility] Body weight 224.00 [lb_av] 224.00 [lb_av] MEDEN T ([facility]) Body height 65 [in_i] 65 [in_i] [facility] ([facility]) 5'5" [place] body weight 125 [lb_av] 125 [lb_av] MEDEN T ([facility]) Body weight 101.[address] [facility] ([facility]) Body weight 221.12 [lb_av] 221.12 [lb_av] eCW1 ([facility]) Body height [in_i] eCW1 ([facility]) Body mass index (BMI) [Ratio] 38.55 kg/m2 38.55 kg/m2 eCW1 ([facility]) Heart rate 54 /min 54 /min eCW1 ([facility]) Respiratory rate 18 /min 18 /min eCW1 ([facility]) Body temperature 98 [degF] 98 [degF] eCW1 ([facility]) Systolic blood pressure 143 mm[Hg] 143 mm[Hg] e CW1 ([facility]) Diastolic blood pressure 86 mm[Hg] 86 mm[Hg] eCW1 ([facility]) Patient Treatment Plan of Care Planned Activity Planned Date Details Description Data Source (s) Metoprolol Tartrate 25 MG Oral Tablet 11/21/2020 12:00:00 AM EDT [facility] Fluconazole 150 MG Oral Tablet [Diflucan] 11/03/2020 12:00:00 AM ED T eCW1 ([facility]) Amoxicillin 875 MG Oral Tablet 11/03/2020 12:00:00 AM EDT eCW1 ([facility]) Fluconazole 150 MG Oral Tablet 11/03/2020 12:00:00 AM EDT [facility] Amoxicillin 875 MG Oral Tablet 11/03/2020 12:00:00 AM EDT [facility] Fluconazole 150 MG Oral Tablet [Diflucan] 11/03/2020 12:00:00 AM ED T eCW1 ([facility]) Amoxicillin 875 MG Oral Tablet 11/03/2020 12:00:00 AM EDT eCW1 ([facility]) Fluconazole 150 MG Oral Tablet [Diflucan] 11/03/2020 12:00:00 AM ED T eCW1 ([facility]) Amoxicillin 875 MG Oral Tablet 11/03/2020 12:00:00 AM EDT eCW1 ([facility]) Potassium Chloride 10 MEQ Extended Release Oral Tablet 06/22/2020 12:00:[address] [facility] rivaroxaban 20 MG Oral Tablet [Xarelto] 06/22/2020 12:00:00 AM EST [facility] tizanidine 2 MG Oral Tablet 06/16/2020 12:00:00 AM EST eCW1 ([facility]) Prednisone 10 MG Oral Tablet 06/16/2020 12:00:00 AM EST eCW1 ([facility]) tizanidine 2 MG Oral Tablet 06/16/2020 12:00:00 AM EST eCW1 ([facility]) Prednisone 10 MG Oral Tablet 06/16/2020 12:00:00 AM EST eCW1 ([facility]) Furosemide 20 MG Oral Tablet 04/21/2020 12:00:00 AM EDT [facility] Metoprolol Tartrate 25 MG Oral Tablet 04/12/2020 12:00:00 AM EDT [facility] rivaroxaban 20 MG Oral Tablet 12/15/2019 12:00:00 AM EDT [facility] Potassium Chloride 10 MEQ Extended Release Oral Tablet 12/15/2019 12:00:[address] [facility] Polyethylene Glycol 400 4 MG/ML / Propylene glycol 3 M G/ML Ophthalmic Solution 11/26/2016 12:00:00 AM EDT [facility] Ascorbic Acid 226 MG / Beta Carotene 143 20 UNT / cuprous oxide 0.8 MG / dl-alpha tocopheryl acetate 200 UNT / Zinc Oxide 34.8 MG Oral Capsule [PreserVision] 04/12/2015 12:00:00 AM EDT [facility] tizanidine 2 MG Oral Tablet [facility]
[2021-05-08 14:58] LABS: ALBUMIN 3.4 GM/DL (3.2-5.2); ALT/SGPT 18 U/L (12-78); BILIRUBIN,DIRECT < 0.1 MG/DL (0.0-0.2); BILIRUBIN,TOTAL 0.3 MG/DL (0.2-1.0); BLOOD UREA NITROGEN 15 MG/DL (7-18); CALCIUM LEVEL 9.2 MG/DL (8.8-10.2); CARBON DIOXIDE LEVEL 28 MEQ/L (21-32); CHLORIDE LEVEL 113 MEQ/L (98-107); CK-MB VALUE MASS < 1.0 NG/ML (<3.6); CPK CREATINE PHOSPHOKINASE 51 U/L (26-192); CREATININE FOR GFR 0.79 MG/DL (0.55-1.30); FREE T4 0.75 NG/DL (0.76-1.46); GLOMERULAR FILTRATION RATE > 60.0 (>32); GLUCOSE, FASTING 96 MG/DL (70-100); LIPASE 148 U/L (73-393); MB/CK RELATIVE INDEX 1.96 (< OR =4); NT-PRO BNP 2258 PG/ML (<450); POTASSIUM SERUM 4.1 MEQ/L (3.5-5.1); SODIUM LEVEL 146 MEQ/L (136-145); TOTAL PROTEIN 6.5 GM/DL (6.4-8.2); TROPONIN I < 0.02 NG/ML (< 0.10)
[2021-05-08] MEDS ORDERED: ISOVUE-370 76% 100ML VIAL As Ordered ONE (15:24)
--- NOTE | 2021-05-08 15:47 | REP ---
INDICATION: SOB; s/p thyroidectomy; r/o airway compromise/PE COMPARISON: Multiple the latest 03/30/2020 TECHNIQUE: CT angiography chest after the intravenous administration of 75 cc Isovue 370 attention pulmonary arteries. FINDINGS: There is suboptimal opacification of the pulmonary arteries to such a degree small uneven medium-sized emboli cannot be ruled out. There is no change in appearance of the thoracic aorta. There is no significant change in appearance of the mediastinum or pulmonary fredrick. There is a nodule in the left lobe of the thyroid gland status quo. The large mass arising from the right lobe of the thyroid gland is no longer present. There is left axillary adenopathy which may have developed since the last exam, however, dense contrast material in the left axillary vessels on the prior exam obscured the region. There are no pleural or pericardial effusions. There is no significant change in appearance of the imaged upper abdomen or imaged osseous structures. Evaluation of the lung carrizales shows scattered ground-glass and asymmetric pulmonary parenchymal densities but somewhat improved compared to the prior exam. Lung carrizales are, however, better aerated on today's exam. No definite new focal opacities have developed. IMPRESSION: 1. The exam is limited as described above. Pulmonary emboli cannot be ruled out as described above. 2. Thyroid gland as described above. 3. Left axillary adenopathy as described above etiology uncertain. 4. Evidence of bilateral subsegmental atelectatic changes and possible mild interstitial lung disease. 5. Other findings as described above. <Electronically signed by Haseeb Scott > 05/08/21 [id number]
--- NOTE | 2021-05-08 16:13 | REPVR ---
PROCEDURE INFORMATION: Exam: CT Neck With Contrast Exam date and time: 05/08/2021 3:17 PM Age: 80 years old Clinical indication: Other: SOB; Prior surgery; Surgery date: <1 month; Surgery type: Thyroidectomy; Additional info: SOB; S/P thyroidectomy; R/O airway compromise/pe TECHNIQUE: Imaging protocol: Computed tomography images of the neck with contrast. Radiation optimization: All CT scans at this facility use at least one of these dose optimization techniques: automated exposure control; mA and/or kV adjustment per patient size (includes targeted exams where dose is matched to clinical indication); or iterative reconstruction. Contrast material: ISOVUE 370; Contrast volume: 100 ml; Contrast route: INTRAVENOUS (IV); COMPARISON: MRA CAROTID W/O FOL WITH 06/27/2017 3:04 PM FINDINGS: Limitations: The inferior most aspect of the neck and thoracic inlet is incompletely imaged on this exam. Nasopharynx: Unremarkable. Oropharynx: Unremarkable. No significant tonsillar enlargement. Hypopharynx: Unremarkable. Larynx: Unremarkable. Normal epiglottis. Retropharyngeal space: Unremarkable. Submandibular/Parotid glands: Normal. Glands are normal in size. Thyroid: The patient appears to be status post right thyroidectomy. Residual left thyroid tissue is present. This is only partially visualized but appears unchanged from the prior exam. A 2.5 cm nodule within the inferior left thyroid is likely present. Lymph nodes: Unremarkable. No lymphadenopathy. Trachea: Visualized trachea is unremarkable. Lungs: Unremarkable as visualized. 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 There is severe spinal canal stenosis at C5-C6. Moderate canal stenosis is present at C4-C5 and C6-C7. Multilevel neural foraminal narrowing from uncinate spurring and facet arthropathy is noted. Vasculature: Atherosclerotic calcifications are present at the carotid bifurcations. There is less than 50% stenosis of the bilateral internal carotid arteries. Soft tissues: Unremarkable. No significant soft tissue swelling. IMPRESSION: 1. The inferior most aspect of the neck and thoracic inlet is incompletely imaged on this exam. 2. The patient appears to be status post right thyroidectomy. Residual left thyroid tissue is present. This is only partially visualized but appears unchanged from the prior exam. A 2.5 cm nodule within the inferior left thyroid is likely present. COMMENTS: Consistent with the [employer] [place] [employer]'s Incidental Findings Committee white paper (J Am Raymond Radiol 2015): In patients aged 35 years and older with an incidental thyroid nodule equal to or greater than 1.[address], MRI or extrathyroidal US, further evaluation with dedicated thyroid US is recommended for patients with normal life expectancy and without comorbidities. For smaller nodules without suspicious features, no further evaluation or follow up is recommended. Electronically signed by: Shiva Fung On 05/08/2021 16:12:21 PM
[2021-05-08] MEDS ORDERED: FUROSEMIDE 20MG/2ML VIAL (J1940) IV ONE (16:35)
[2021-05-08] MEDS ORDERED: LISI10TA22 PO (17:28)
[2021-05-08] MEDS ORDERED: HOME MED LIST COMPLETE! XX SCH (17:30)
--- OUTSIDE RECORDS SUMMARY | 2021-05-08 17:50 | CCD ---
Author Author [facility] Organization [facility] Address Unknown Phone Unavailable Care Team Providers Care Service Cleaner Name Role Phone Lloyd Guerra MD Unavailable [...] Maldonado MD Unavailable Unavaila ble Migeed, Lloyd Brownel Maldonado MD Unavailable Unavaila ble MigeedLloyd MD Unavailable Unavaila ble MigeedLloyd MD Unavailable Unavaila ble MigeedLloyd MD Unavailable Unavaila ble MigeedLloyd MD Unavailable Unavaila ble MigeedLloyd MD Unavailable Unavaila ble MigeedLloyd MD Unavailable Unavaila ble MigeedLloyd MD Unavailable Unavaila ble MigeedLloyd MD Unavailable Unavaila ble MYLA, LAUREN MASON [facility] Unavailable Unavailable MYLA, LAUREN MASON [facility] Unavailable Unavailable MYLA, LAUREN MASON [facility] Unavailable Unavailable MYLA, LAUREN MASON [facility] Unavailable Unavailable MYLA, LAUREN MAOSN [facility] Unavailable Unavailable MYLA, LAUREN MASON [facility] Unavailable Unavailable MYLA, LAUREN MASON [facility] Unavailable Unavailable MYLA, LAUREN MASON [facility] Unavailable Unavailable MYLA, LAUREN MASON [facility] Unavailable Unavailable MYLA, LAUREN MASON [facility] Unavailable Unavailable MYLA, LAUREN MASON [facility] Unavailable Unavailable MYLA, LAUREN MASON [facility] Unavailable Unavailable MYLA, LAUREN MASON [facility] Unavailable Unavailable MYLA, LAUREN MASON [facility] Unavailable Unavailable MYLA, LAUREN MASON [facility] Unavailable Unavailable MYLA, LAUREN MASON [facility] Unavailable Unavailable MYLA, LAUREN MASON [facility] Unavailable Unavailable Galax, V DINORAH PA-C Unavailable Unavailable Galax, V DINORAH PA-C Unavailable Unavailable Art, V DINORAH PA-C Unavailable Unavailable Art, V DINORAH PA-C Unavailable Unavailable [place]ax, V DINORAH PA-C Unavailable Unavailable [place], V DINORAH PA-C Unavailable Unavailable [place]ax, V DINORAH PA-C Unavailable Unavailable Art, V DINORAH PA-C Unavailable Unavailable [place], V DINORAH PA-C Unavailable Unavailable [place], V DINORAH PA-C Unavailable Unavailable [place], V DINORAH PA-C Unavailable Unavailable [place], V DINORAH PA-C Unavailable Unavailable Art, V DINORAH PA-C Unavailable Unavailable Art, V DINORAH PA-C Unavailable Unavailable Mary, N Shade CLINICAL PHYSICIAN ASSISTANT Unavailable Unavailable [place], N Shade CLINICAL PHYSICIAN ASSISTANT Unavailable Unavailable Mary, N Shade CLINICAL PHYSICIAN ASSISTANT Unavailable Unavailable Mary, N Shade CLINICAL PHYSICIAN ASSISTANT Unavailable Unavailable Mary, N Shade CLINICAL PHYSICIAN ASSISTANT Unavailable Unavailable Mary, N Shade CLINICAL PHYSICIAN ASSISTANT Unavailable Unavailable [place], N Shade CLINICAL PHYSICIAN ASSISTANT Unavailable Unavailable [place], N Shade CLINICAL PHYSICIAN ASSISTANT Unavailable Unavailable [place], N Shade CLINICAL PHYSICIAN ASSISTANT Unavailable Unavailable Mary, N Shade CLINICAL PHYSICIAN ASSISTANT Unavailable Unavailable [place], N Shade CLINICAL PHYSICIAN ASSISTANT Unavailable Unavailable [place], N Shade CLINICAL PHYSICIAN ASSISTANT Unavailable Unavailable Mary, N Shade CLINICAL PHYSICIAN ASSISTANT Unavailable Unavailable [place], N Shade CLINICAL PHYSICIAN ASSISTANT Unavailable Unavailable Mary, N Shade CLINICAL PHYSICIAN ASSISTANT Unavailable Unavailable [place], N Shade CLINICAL PHYSICIAN ASSISTANT Unavailable Unavailable Mary, N Shade CLINICAL PHYSICIAN ASSISTANT Unavailable Unavailable [place], N Shade CLINICAL PHYSICIAN ASSISTANT Unavailable Unavailable Mary, N Shade CLINICAL PHYSICIAN ASSISTANT Unavailable Unavailable [place], N Shade CLINICAL PHYSICIAN ASSISTANT Unavailable Unavailable [place], N Shade CLINICAL PHYSICIAN ASSISTANT Unavailable Unavailable Mary, N Shade CLINICAL PHYSICIAN ASSISTANT Unavailable Unavailable [place], N Shade CLINICAL PHYSICIAN ASSISTANT Unavailable Unavailable Mary, N Shade CLINICAL PHYSICIAN ASSISTANT Unavailable Unavailable Mary, N Shade CLINICAL PHYSICIAN ASSISTANT Unavailable Unavailable Mary, N Shade CLINICAL PHYSICIAN ASSISTANT Unavailable Unavailable [place], N Shade CLINICAL PHYSICIAN ASSISTANT Unavailable Unavailable [place], N Shade CLINICAL PHYSICIAN ASSISTANT Unavailable Unavailable [place], N Shade CLINICAL PHYSICIAN ASSISTANT Unavailable Unavailable Mary, N Shade CLINICAL PHYSICIAN ASSISTANT Unavailable Unavailable Mary, N Shade CLINICAL PHYSICIAN ASSISTANT Unavailable Unavailable [place], N Shade CLINICAL PHYSICIAN ASSISTANT Unavailable Unavailable Mary, N Shade CLINICAL PHYSICIAN ASSISTANT Unavailable Unavailable MEDENT_[id number], NA Unavailable [phone] Shawn NICK MD Unavailable Unavailable Shawn NICK MD Unavailable Unavailable Shawn NICK MD Unavailable Unavailable Shawn NICK MD Unavailable Unavailable Shawn NICK MD Unavailable Unavailable Shawn NICK MD Unavailable Unavailable Shawn INCK MD Unavailable Unavailable Shawn NICK MD Unavailable [...] is protected by Article 27-F of the [facility] Public Health law. If you continue you may have access to information: Regarding HIV / AIDS; Provided by facilities licensed or operated by the [facility] Office of Mental Health; or Provided by the [facility] Office for People With Developmental Disabilities. If such information is present, then the following [facility] mandated warning applies: This information has [...] law may result in a fine or fci sentence or both. A general authorization for the release of medical or other information is NOT sufficient authorization for further disc losure. Allergies and Adverse Reactions Type Description Substance Reaction Status Data Source(s ) Drug Allergy NKDA NKDA [facility] ([facility], ) Family History Family Member Name Family Member Gender Family Member Status Date o f Status Description Data Source(s) Unknown Female Problem [facility] ([facility]) Unknown Male Problem [facility] Unknown Male Problem MED[facility] ([facility]) Unknown Male Problem MED[facility] ([facility] () Unknown Male Problem MEDENT ([facility] ) Encounters Encounter Providers Location Date Indications Data Source(s ) Unknown [address] [facility], [facility] [address] 05/01/2021 12:00:00 AM EDT eCW1 (Formerly [facility]) Outpatient Admitter: GREGORY NICK MDReferrer: GREGORY NICK MD 04/26/2021 12:00:00 AM EDT Nontoxic goiter, unspecified [facility] Nontoxic goiter, unspecified Outpatient [address] [place] [phone] 04/18/2021 12:00:00 AM EDT eCW1 (Formerly [facility], [facility]) Outpatient SJP.CT-SJP.SYR 04/13/2021 12:03:15 PM EDT [facility] Office Visit Attender: IAN REILLY [facility] Office 03/17 11:00:00 AM EDT MEDENT ([facility] Unknown [address] [facility] [place] [address] 03/28/2021 12:00:00 AM EDT eCW1 ([facility]ly [facility], [facility]) Unknown [address] [facility] [place] [address] 03/15/2021 12:00:00 AM EDT eCW1 (Formerly [facility], [facility]) Outpatient Attender: IAN REILLY [facility] Office 02/13 03:30:00 PM EDT MEDENT ([facility] Out[place] [address] [facility] [address] 02/09/2021 12:00:00 AM EDT eCW1 ([facility]ly [facility]) Outpatient Attender: GREGORY Nick/Charito/Gal/Shanted nahed 01/30/2021 09:30:00 AM EDT MEDENT ([facility], ) Out[place] [address] [facility] [address] 01/20/2021 12:00:00 AM EDT eCW1 ([facility]) Unknown [address] [facility] [address] 01/17/2021 12:00:00 AM EDT eCW1 ([facility]) Outpatient AYAAN-SJP.AVRIL 01/04/2021 12:30:51 PM EDT [facility] Outpatient Attender: IAN REILLY [facility] 12/13 03:15:00 PM EDT MEDENT ([facility] Outpatient Attender: GREGORY Nick/Charito/Gal/Alice dockery 12/23/2020 02:00:00 PM EDT MEDENT ([facility] ) Outpatient Attender: MASON Nick/Charito/Gal/Vidya galdamez 12/19/2020 10:15:00 AM EDT MEDENT ([facility], ) Outpatient Attender: DINORAH FREY-SJSidney.CONY 12:00:00 AM EDT - 12/08/2020 10:55:32 AM EDT [facility] Outpatient Referrer: DINORAH FREY-SJLauraCONY 11:15:14 AM EDT [facility] Outpatient Attender: DINORAH BEALSJLauraCONY 04/2021 01:21:30 PM EDT - 11/21/2020 02:57:24 PM EDT [facility] Outpatient Attender: MASON Nick/Charito/Walter galdamez 11/15/2020 01:15:00 PM EDT MEDENT ([facility], ) Outpatient Attender: DINORAH FREY-SJSidney.CONY 01:10:30 PM EDT - 11/08/2020 02:57:59 PM EDT [facility] Out[place] [address] [facility] [address] 11/03/2020 12:00:00 AM EDT eCW1 ([facility]) Unknown [address] [facility] [address] 11/03/2020 12:00:00 AM EDT eCW1 ([facility]) Outpatient Attender: DINORAH FREY-SJP.CONY 10:12:32 AM EDT - 10/25/2020 11:16:43 AM EDT [facility] Unknown [address] [facility] [address] 10/19/2020 12:00:00 AM EDT eCW1 ([facility]) Unknown [address] [facility] [address] 10/04/2020 12:00:00 AM EDT eCW1 ([facility]) Outpatient CONY-SJP 09/30/2020 11:27:23 AM EDT [facility] Outpatient SHANTE-SJP.CONY 09/29/2020 12:00:00 AM EDT [facility] Out[place] [address] [facility] [address] 09/16/2020 12:00:00 AM EST eCW1 ([facility]) Unknown [address] [facility] [address] 09/15/2020 12:00:00 AM EST eCW1 ([facility]) Outpatient [address] [facility] [address] 08/10/2020 12:00:00 AM EST eCW1 ([facility]) Outpatient SJP.CONY-SJP 07/02/2020 10:42:01 AM EST [facility] Outpatient SJP.CONY-SJP.CONY 06/30/2020 12:00:00 AM EST [facility] Outpatient Attender: DINORAH Cordova PA-C SJP.CONY-SJP.CONY 03/2020 12:00:00 AM EST - 06/22/2020 02:55:55 PM EST [facility] Outpatient [address] [facility] [address] 06/16/2020 12:00:00 AM EST eCW1 ([facility]) Unknown [address] [facility], [facility] [address] 06/16/2020 12:00:00 AM EST eCW1 ([facility]ly [facility]) Office Visit Attender: NA LAWSON_143 [facility] Md Allergy Immunology s 06/06/2020 10:00:00 AM EST MEDENT ([facility]) Outpatient Attender: GREGORY Nick/Charito/Gal/Alice dockery 05/31/2020 12:15:00 PM EST MEDENT ([facility]) Outpatient Attender: Erica Guerra MD Admitter: Erica Guerra MDReferrer: Erica Guerra MD [email or web address].CVAU 05/30/2020 12:14:00 PM EST - 05/30/2020 04:40:00 PM EST [facility] Patient discharged. Outpatient Attender: Erica Guerra MD [facility] Cardiology Asso alisson 05/19/2020 01:00:00 PM EST MEDENT ([facility]) Outpatient Attender: IAN REILLY [facility] Office 04/16 03:15:00 PM EDT MEDENT ([facility] Outpatient Attender: GREGORY Nick/Charito/Gal/Alice dockery 05/02/2020 02:00:00 PM EDT MEDENT ([facility]) Unknown [address] [facility], [place] [address] 04/27/2020 12:00:00 AM EDT eCW1 ([facility]) Outpatient [address] [facility] [place] [address] 04/22/2020 12:00:00 AM EDT eCW1 ([facility]) Unknown [address] [facility] [place] [address] 04/21/2020 12:00:00 AM EDT eCW1 ([facility]) Unknown [address] [facility], [place] [address] 04/13/2020 12:00:00 AM EDT eCW1 ([facility]) Outpatient Attender: Shade Hernandez NP SJP.CONY-SJP.CONY 020 10:41:00 AM EDT - 04/12/2020 12:05:10 PM EDT [facility] Medications Medication Brand Name Start Date [...] 04/13/2021 12:00:00 AM EDT ORAL active [facility] ([facility] Hydrocortisone 10 MG/ML / Neomycin 3.5 M G/ML / Polymyxin B 21022 UNT/ML Otic Solution Bbcotyzt-Lrcbjshmo-FH 03/30/2021 12:00:00 AM EDT active MED[facility] ([facility] 20 mg 02/10/2021 12:00:00 AM EDT [...] 12:00:00 AM EDT active M [facility]ENT ([facility] 25 mg 12/03/2020 12:00:00 AM EDT [...] by mouth 2 (two) times a day [facility] Amoxicillin 875 MG Oral Tablet Amoxicillin 875 MG 11/03/2020 12:00: 00 AM EDT 1.0 {tablet} suspended Amoxicillin 875 M G eCW1 ([facility]) Fluconazole 150 MG Oral Tablet [Diflucan] Diflucan 150 MG Di flucan 150 MG 11/03/2020 12:00:00 AM EDT 1.0 {tablet} active Diflucan 150 MG eCW1 ([facility]) Amoxicillin 875 MG Oral Tablet Amoxicillin 875 MG 11/03/2020 12:00: 00 AM EDT 1.0 {tablet} active Amoxicillin 875 MG eCW1 ([facility]) Fluconazole 150 MG Oral Tablet [Diflucan] Diflucan 150 MG Di flucan 150 MG 11/03/2020 12:00:00 AM EDT 1.0 {tablet} suspended Diflucan 150 MG eCW1 ([facility]) Amoxicillin 875 MG Oral Tablet Amoxicillin 875 MG 11/03/2020 12:00: 00 AM EDT 1.0 {tablet} active Amoxicillin 875 MG eCW1 ([facility]) Fluconazole 150 MG Oral Tablet [Diflucan] Diflucan 150 MG Di flucan 150 MG 11/03/2020 12:00:00 AM EDT 1.0 {tablet} active Diflucan 150 MG eCW1 ([facility]) 875 mg 11/03/2020 12:00:00 AM EDT tablet 20 TAKE ONE TABLET BY MOUTH TWICE A DAY TAKE ONE TABLET BY MOUTH TWICE A DAY SOLD: 11/03/2020 [facility] Amoxicillin 875 MG Oral Tablet Amoxicillin 875 MG 11/03/2020 12:00: 00 AM EDT 1.0 {tablet} suspended Amoxicillin 875 M G eCW1 ([facility]) Amoxicillin 875 MG Oral Tablet Amoxicillin 875 MG 11/03/2020 12:00: 00 AM EDT 1.0 {tablet} suspended Amoxicillin 875 M G eCW1 ([facility]) Fluconazole 150 MG Oral Tablet [Diflucan] Diflucan 150 MG Di flucan 150 MG 11/03/2020 12:00:00 AM EDT 1.0 {tablet} suspended Diflucan 150 MG eCW1 ([facility]) Amoxicillin 875 MG Oral Tablet Amoxicillin 875 MG 11/03/2020 12:00: 00 AM EDT 1.0 {tablet} active Amoxicillin 875 MG eCW1 ([facility]) Amoxicillin 875 MG Oral Tablet Amoxicillin 875 MG 11/03/2020 12:00: 00 AM EDT 1.0 {tablet} suspended Amoxicillin 875 M G eCW1 ([facility]) Fluconazole 150 MG Oral Tablet [Diflucan] Diflucan 150 MG Di flucan 150 MG 11/03/2020 12:00:00 AM EDT 1.0 {tablet} suspended Diflucan 150 MG eCW1 ([facility]) Amoxicillin 875 MG Oral Tablet Amoxicillin 875 MG 11/03/2020 12:00: 00 AM EDT 1.0 {tablet} suspended Amoxicillin 875 M G eCW1 ([facility]) Fluconazole 150 MG Oral Tablet fluconazole (DIFLUCAN) 150 MG tablet fluconazole (DIFLUCAN) 150 MG tablet 11/03/2020 12:00:00 AM EDT aborted TAKE 1 TABLET BY MOUTH TODAY REPEAT IN 3 DAYS [facility] Fluconazole 150 MG Oral Tablet [Diflucan] Diflucan 150 MG Di flucan 150 MG 11/03/2020 12:00:00 AM EDT 1.0 {tablet} suspended Diflucan 150 MG eCW1 ([facility]) Fluconazole 150 MG Oral Tablet [Diflucan] Diflucan 150 MG Di flucan 150 MG 11/03/2020 12:00:00 AM EDT 1.0 {tablet} active Diflucan 150 MG eCW1 ([facility]) Fluconazole 150 MG Oral Tablet [Diflucan] Diflucan 150 MG Di flucan 150 MG 11/03/2020 12:00:00 AM EDT 1.0 {tablet} suspended Diflucan 150 MG eCW1 ([facility]) Amoxicillin 875 MG Oral Tablet Amoxicillin 875 MG 11/03/2020 12:00: 00 AM EDT 1.0 {tablet} suspended Amoxicillin 875 M G eCW1 ([facility]) Fluconazole 150 MG Oral Tablet [Diflucan] Diflucan 150 MG Di flucan 150 MG 11/03/2020 12:00:00 AM EDT 1.0 {tablet} suspended Diflucan 150 MG eCW1 ([facility]) Amoxicillin 875 MG Oral Tablet amoxicillin (AMOXIL) 87 5 MG tablet amoxicillin (AMOXIL) 875 MG tablet 11/03/2020 12:00:00 AM EDT 875 mg Oral aborted Take 875 mg by mouth 2 (two) times a day [facility] 150 mg 11/03/2020 12:00:00 AM EDT [...] TABLET BY MOUTH EVERY DAY SOLD: 09/29/2020 [facility] Potassium Chloride 10 MEQ Extended Release Oral Tablet POTAS SIUM CHLORIDE 06/23/2020 12:00:00 AM EST tablet extended release 90 TAKE ONE TABLET BY MOUTH EVERY DAY TAKE ONE TABLET BY MOUTH EVERY DAY SOLD: 06/25/2020 [facility] Potassium Chloride 10 MEQ Extended Relea se Oral Tablet potassium chloride (K- DUR) 10 MEQ tablet potassium chloride (K-DUR) 10 MEQ tablet 06/22/2020 12 :00:00 AM EST 10 meq Oral active Take 1 tablet (10 mEq total) by mouth daily [facility] rivaroxaban 20 MG Oral Tablet [Xarelto] XARELTO 20 MG TABS X ARELTO 20 MG TABS 06/22/2020 12:00:00 AM EST active TAKE ONE TABLET BY MOUTH EVERY DAY [facility] tizanidine 2 MG Oral Tablet TIZANIDINE [...] {tablets} active P redniSONE 10 MG eCW1 ([facility]) tizanidine 2 MG Oral Tablet Tizanidine HCl 2 MG Tizanidine H Cl 2 MG 06/16/2020 12:00:00 AM EST 1.0 {tablet_as_needed} active Tizanidine HCl 2 MG eCW1 ([facility]) tizanidine 2 MG Oral Tablet Tizanidine HCl 2 MG Tizanidine H Cl 2 MG 06/16/2020 12:00:00 AM EST 1.0 {tablet_as_needed} active Tizanidine HCl 2 MG eCW1 ([facility]) Prednisone 10 MG Oral Tablet PredniSONE 10 MG PredniSONE 10 MG 06/16/2020 12:00:00 AM EST 3.0 {tablets} active P redniSONE 10 MG eCW1 ([facility]) 40 mg 04/27/2020 12:00:00 AM [...] TABLET BY MOUTH EVERY DAY SOLD: 09/23/2020 [facility] Furosemide 20 MG Oral Tablet furosemide (LASIX) 20 MG tablet furosemide (LASIX) 20 MG tablet 04/21/2020 12:00:00 AM EDT activ e TAKE ONE TABLET BY MOUTH EVERY DAY [facility] 25 mg 04/13/2020 12:00:00 AM EDT tablet 45 TAKE ONE-HALF TABLET BY MOUTH EVERY DAY TAKE ONE-HALF TABLET BY MOUTH EVERY DAY SOLD: 04/22/2020 [facility] Metoprolol Tartrate 25 MG Oral Tablet me toprolol tartrate (LOPRESSOR) 25 MG tablet metoprolol tartrate (LOPRESSOR) 25 MG tablet 04/12/2020 12:0 0:00 AM EDT 12.5 mg Oral aborted Take 0.5 tablets (12.5 mg total) by mouth daily [facility] Atenolol 100 MG Oral Tablet ATENOLOL 04/01/2020 12:00:00 AM EDT table t 30 TAKE ONE TABLET BY MOUTH EVERY DAY TAKE ONE TABLET BY MOUTH EVERY DAY SOLD: 04/04/2020 [facility] 10 mEq 12/15/2019 12:00:00 AM EDT tablet,ER particles/cry stals 90 TAKE ONE TABLET BY MOUTH EVERY DAY TAKE ONE TABLET BY MOUTH EVERY DAY SOLD: 06/25/2020 [facility] rivaroxaban 20 MG Oral Tablet rivaroxaban (XARELTO) 20 MG TABS rivaroxaban (XARELTO) 20 MG TABS 12/15/2019 12:00:00 AM EDT 20 mg Oral aborted Take 1 tablet (20 mg total) by mouth daily [facility] 20 mg 12/15/2019 12:00:00 AM EDT tablet 90 TAKE ONE TABLET BY MOUTH EVERY DAY TAKE ONE TABLET BY MOUTH EVERY DAY SOLD: 03/18/2020 [facility] Potassium Chloride 10 MEQ Extended Relea se Oral Tablet potassium chloride (K- DUR) 10 MEQ tablet potassium chloride (K-DUR) 10 MEQ tablet 12/15/2019 12 :00:00 AM EDT 10 meq Oral aborted Take 1 t ablet (10 mEq total) by mouth daily [facility] Polyethylene Glycol 400 4 MG/ML / Propyl kathy glycol 3 MG/ML Ophthalmic Solution Polyethyl Glycol-Propyl Glycol (SYSTANE ULTRA) 0.4-0.3 % SOLN Polyethyl Glycol- Propyl Glycol (SYSTANE ULTRA) 0.4-0.3 % SOLN 11/26/2016 12:00:00 AM EDT aborted SYSTANE ULTRA 0.4-0.3 % SOLN [facility] Ascorbic Acid 226 MG / Beta Carotene 143 20 UNT / cuprous oxide 0.8 MG / dl-alpha tocopheryl acetate 200 UNT / Zinc Oxide 34.8 MG Oral Capsule [PreserVision] Multiple Vitamins-Minerals (PRESERVISION AREDS) CAPS Multiple Vitamins-Minerals (PRESERVISION AREDS) CAPS 04/12/2015 12:00:00 AM EDT aborted PRESERVISION AREDS CAPS [facility] tizanidine 2 MG Oral Tablet tiZANidine (ZANAFLEX) 2 MG tablet tiZANidine (ZANAFLEX) 2 MG tablet 2 mg Oral aborted Take 2 mg by mouth as needed [facility] Insurance Providers Payer name Policy type / Coverage type Policy ID Covered libertarian ID Covered libertarian's relationship to lane Policy Lane Plan Information [place] [employer] () Workers Compensation [id number] Self A [id number] Medicare [place] Med[place] Part B [id number] Self [id number] MEDICARE A [id number] Self [id number] MEDICARE [id number] xxxxxxxxxxx [id number] MEDICARE [id number] [facility] [id number] [facility] [id number] [employer] [place] (pr) Medigap Part B [id number] Self [id number] [facility] Medigap Part B [id number] Self [id number] [employer] Medicare Commercial [id number] Self [id number] [employer] Medigap Part B [id number] Self [id number] [employer] Med[employer] Part B [id number] Self [id number] [employer] Medigap Part B [id number] Self [id number] [employer] Medicare Medigap Part B [id number] Self [id number] [employer] Medigap Part B [id number] Self [id number] [employer] Medigap Part B [id number] Self [id number] MEDICARE COMPLETE [id number] 85 [id number] [facility] [id number] Marie [id number] 311 [facility] [id number] xxxxxxxxxxx [id number] ANSI-Medicare Part B [id number] ANSI-Commercial [id number] ANSI-Commercial [id number] ANSI-Medicare Part B [id number] ANSI-Medicare Part B [id number] ANSI-Medicare Part B [id number] ANSI-Medicare Part B [id number] ANSI-Commercial [id number] [facility] Health Care Options [facility] Part B [id number] Self [id number] Medicare [place] Medicare Primary [id number] Self [id number] ANSI-Medicare Part B [id number] ANSI-Commercial [id number] ANSI-Medicare Part B [id number] ANSI-Medicare Part B [id number] ANSI-Medicare Part B [id number] ANSI-Commercial [id number] ANSI-Medicare Part B [id number] ANSI-Medicare Part B [id number] ANSI-Commercial [id number] ANSI-Medicare Part B [id number] ANSI-Medicare Part B [id number] ANSI-Commercial [id number] ANSI-Medicare Part B [id number] ANSI-Commercial [id number] ANS-Medicare Part B [id number] [facility] Part B [id number] 2.0.1.471932.3.227.99.8646. 12278.0 Self [id number] Medicare [place] Medicare Primary [id number] 2.0.1.857408.3.227.99.8646.96740.0 Self [id number] [facility] Part B [id number] 2.0.1.173819.3.227.99.104.664811.0 Self [id number] Medicare [facility] Medicare Primary [id number] 2.0.1.205382.3.227.99.104.910032.0 Self [id number] [employer] [id number] 2.0.1.001488.3.227.99.936.28611.0 Self [id number] [facility] [id number] 2.0.1.309078.3.227.99 .936.07596.0 Self [id number] Medicare Medicare Primary [id number] 2.0.1.624789.3.227. 99.936.03149.0 Self [id number] [employer] [facility] Part B [id number] 2.0.1.29596 3.3.227.99.936.76305.0 Self [id number] ANS-Medicare Part B [id number] ANSI-Medicare Part B [id number] ANSI-Commercial [id number] ANSI-Medicare Part B [id number] ANSI-Medicare Part B [id number] ANSI-Commercial [id number] MEDICARE C [id number] S [id number] A ANSI-Commercial [id number] ANSI-Medicare Part B [id number] ANSI-Medicare Part B [id number] ANSI-Commercial [id number] ANSI-Medicare Part B [id number] ANSI-Medicare Part B [id number] MEDICARE [id number] A [employer]arp Medigap Part B [id number] 2.840.1.120400.3.227.99.8646. 99439.0 Self [id number] Medicare [place]/[facility] Medicare Primary [id number] 2.840.1.531108.3.227.99.8646.21089.0 Self [id number] [employer] [id number] 2.0.1.507608.3.227.99.936.84245.0 Self [id number] Medicare Dme Medigap Part B [id number] 2.0.1.513074.3.227.99 .936.08965.0 Self [id number] Medicare Medicare Primary [id number] 2.0.1.036459.3.227. 99.936.94021.0 Self [id number] [facility] Healthcare Options Medigap Part B [id number] 2.0.1.510114.3.227.99.991.87505.0 Self [id number] Medicare [place] Medicare Primary [id number] 2.840.1.939340.3.227.99.991.98491.0 Self 1 [id number] [facility] [id number] 2.0.1.883223.3.227 .99.991.06515.0 Self [id number] [employer] [id number] 2.0.1.353648.3.227.99.936.52134.0 Self [id number] Medicare Dme Medigap Part B [id number] 2.840.1.450851.3.227.99 .936.65956.0 Self [id number] Medicare Medicare Primary [id number] 2.0.1.141758.3.227. 99.936.08969.0 Self [id number] [employer] [id number] 2.16840.1.649650.3.227.99.936.40594.0 Self [id number] Medicare Dme Medigap Part B [id number] 2.16840.1.901643.3.227.99 .936.73235.0 Self [id number] Medicare Medicare Primary [id number] 2.16840.1.913456.3.227. 99.936.48434.0 Self [id number] [facility] [id number] 2.16.840.1.850674.3.227.99.104.432866.0 Self [id number] Medicare [place] Medicare Primary [id number] 2.840.1.088022.3.227.99.104.530660.0 Self [id number] [employer] [id number] 2.0.1.914814.3.227.99.936.54859.0 Self [id number] Medicare Medicare Primary [id number] 2.16840.1.514591.3.227. 99.936.42090.0 Self [id number] MEDICARE [id number] SP [id number] H74 MEDICARE COMPLETE-UHC O [id number] S [id number] MEDICARE COMPLETE [id number] SP [id number] MEDICARE COMPLETE [id number] SP [id number] [employer] ([facility]) Zdorovio [id number] 2.840.1.740238.3.227.99.991.883654.0 Self [id number] MEDICARE COMPLETE-UHC O [id number] S [id number] [employer] [id number] 2.16840.1.084609.3.227.99.936.85131.0 Self [id number] [facility]ARP [facility] OPTIONS [id number] SP [id number] MEDICARE C [id number] S [id number] AARP O [id number] S [id number] [facility] HE[facility] CARE OPTIONS [id number] S [id number] [facility]STATE MEDICARE DIVISION [id number] S [id number] MEDICARE - [place] [id number] S [id number] UNITED HEALTHCARE MEDICARE [id number] S [id number] [facility] [id number] S [id number] [facility] HEALTH CARE OPTIONS [id number] S [id number] UNITED HEALTHCARE MEDICARE [id number] S [id number] [facility] C [id number] S [id number] ANSI-Commercial [id number] ANS-Medicare Part B [id number] ANSMedicare Part B [id number] [facility] Health Care Options [facility] Part B [id number] Self [id number] Medicare [place] Primary [id number] Self [id number] ANSMedicare Part B [id number] Problems, Conditions, and Diagnoses Code Display Name Description Problem Type Effective Dates Data Source(s) 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 Diagnosi s 04/26/2021 02:17:00 PM EDT [facility] E04.9 Nontoxic goiter, unspecified Nontoxic goiter, unspecif ied Diagnosis 04/26/2021 02:17:00 PM EDT [facility] R06.02 Shortness of breath Shortness of breath Diagnosis 0 11/08/2020 01:10:30 PM EDT [facility] Z68.36 Body mass index (BMI) 36.0-36.9, adult B lianet mass index (BMI) 36.0-36.9, adult Diagnosis 11/08/2020 01:10:30 PM EDT [facility] E66.09 Other obesity due to excess calories Oth er obesity due to excess calories Diagnosis 11/08/2020 01:10:30 PM EDT [facility] I71.2 Thoracic aortic aneurysm, without ruptur e Thoracic aortic aneurysm, without ruptur Diagnosis 11/08/2020 01:10:30 PM EDT [facility] I48.0 Paroxysmal atrial fibrillation Paroxysmal atrial fibri llation Diagnosis 11/08/2020 01:10:30 PM EDT [facility] I10 Essential (primary) hypertension Essential (primary) h ypertension Diagnosis 10/25/2020 10:12:32 AM EDT [facility] I49.5 Sick sinus syndrome Sick sinus syndrome Diagnosis 0 10/25/2020 10:12:32 AM EDT [facility] G56.02 [id number] Carpal tunnel syndrome, left Problem 04/18/2021 12:00:00 AM EDT eCW1 ([facility]) I71.2 [id number] Ascending aortic aneurysm Problem 04/18/2021 12:00:00 AM EDT eCW1 ([facility]) 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 [id number] Primary osteoarthritis involving multiple joints Problem 04/18/2021 12:00:00 AM EDT eCW1 ([facility]) Z95.0 [id number] S/P cardiac pacemaker procedure Problem 02/09/2021 12:00:00 AM EDT eCW1 ([facility]) R06.09 [id number] Chronic dyspnea Problem 09/16/2020 12:00:00 AM EST eCW1 ([facility]) I11.9 92663096 Hypertensive heart disease without heart failure Problem 08/10/2020 12:00:00 AM EST eCW1 ([facility]) M79.676 Pain in limb Pain in limb Problem 08/09/2020 12:00:00 A M EST [facility] ([facility] [id number] Cardiac pacemaker in situ Cardiac pacemaker in situ Pr oblem 06/06/2020 12:00:00 AM EST [facility] ([facility] I49.5 SSS (sick sinus syndrome) SSS (sick sinus syndrome) 64 044275 05/20/2020 12:00:00 AM EST [facility] 98755117 Sinus node dysfunction Sinus node dysfunction Problem 05/19/2020 12:00:00 AM EST [facility] ([facility]) [id number] Paroxysmal atrial fibrillation Paroxysmal atrial fibri llation Problem 05/19/2020 12:00:00 AM EST [facility] ([facility]) E05.90 65560950 Hyperthyroidism Problem 04/22/2020 12:00:00 AM EDT eCW1 ([facility]) I49.5 [id number] Tachy-julio cesar syndrome Problem 04/22/2020 12:0 0:00 AM EDT eCW1 ([facility]) I48.92 [id number] Paroxysmal atrial flutter Problem 04/22/2020 12:00:00 AM EDT eCW1 ([facility]) Surgeries/Procedures Procedure Description Date Indications Data Source(s) EXCISION NAIL MATRIX PERMANENT REMOVAL 03/30/2021 12:0 0:00 AM EDT [facility] ([facility] OFFICE OUTPATIENT VISIT 10 MINUTES 03/03/2021 12:00:00 AM EDT [facility] ([facility] LARYNGOSCOPY FLEXIBLE FIBEROPTIC DIAGNOSTIC 01/30/2021 12:00:00 AM EDT [facility] ([facility], ) OFFICE OUTPATIENT VISIT 25 MINUTES 01/30/2021 12:00:00 AM [facility] Med: Derm 1% Lidocaine with Epinephrine Injection Intr adermally to marked areas 01/20/2021 12:00:00 AM EDT eCW1 ([facility]) OFFICE OUTPATIENT VISIT 15 MINUTES 12/23/2020 12:00:00 AM EDT [facility] ([facility], ) DEBRIDEMENT NAIL ANY METHOD /> 12/23/2020 12:00:00 AM EDT [facility] ([facility] OFFICE OUTPATIENT VISIT 10 MINUTES 12/23/2020 12:00:00 AM EDT [facility] ([facility] OFFICE OUTPATIENT VISIT 25 MINUTES 12/19/2020 12:00:00 AM EDT [facility] ([facility], ) Bronchospasm Evaluation 12/09/2020 12:00:00 AM EDT [facility] ) Plethysmography Determination Lung Volumes & Per Airway Resi st 12/09/2020 12:00:00 AM EDT [facility] ([facility] ) DIFFUSING CAPACITY 12/09/2020 12:00:00 AM EDT [facility] ([facility], ) ECG ROUTINE ECG W/LEAST 12 LDS W/I&R <td>POCT AMB EKG</td><td>Routine</td><td>11/21/2020 5:34 PM EDT</td><td> Shortness of breath</td><td> </td> 11/21/2020 05:34:00 PM EDT Shortness of breath [facility] Shortness of breath BLOOD COUNT COMPLETE AUTOMATED <td>CBC</td><td>Routine</td><td>11/21/2020</td><td> Shortness of breath</td><td> </td> 11/21/2020 12:00:00 AM EDT Shortness of breath [facility] Shortness of breath Spirometry 11/15/2020 12:00:00 AM EDT M JENNIFER ([facility], ) OFFICE OUTPATIENT VISIT 25 MINUTES 11/15/2020 12:00:00 AM EDT [facility] ([facility], ) POCT AMB EKG <td>POCT AMB EKG</td><td>Rou monica</td><td>11/08/2020 7:22 PM EDT</td><td> Paroxysmal atrial fibrillation</td><td> </td> 11/08/2020 07:22:00 PM EDT Paroxysmal atrial fibrillation [facility] Paroxysmal atrial fibrillation POCT AMB EKG <td>POCT AMB EKG</td><td>Rou monica</td><td>10/25/2020 5:52 PM EDT</td><td> Paroxysmal atrial fibrillation</td><td> </td> 10/25/2020 09:52:00 PM EDT Paroxysmal atrial fibrillation [facility] Paroxysmal atrial fibrillation DEBRIDEMENT NAIL ANY METHOD 10/07/2020 12:00:00 AM EDT [facility] ([facility] THYROID STIMULATING HORMONE TSH <td>TSH</td><td>Routine</td><td>08/10/2020</td><td></td><td> </td> 08/10/2020 12:00:00 AM EST [facility] BASIC METABOLIC PANEL CALCIUM TOTAL <td>BASIC METABOLI C PANEL</td><td>Routine</td><td>08/10/2020</td><td></td><td> </td> 08/10/2020 12:00:00 AM EST [facility] DEBRIDEMENT NAIL ANY METHOD 07/29/2020 12:00:00 AM EST [facility] ([facility] ECG ROUTINE ECG W/LEAST 12 LDS W/I&R <td>POCT AMB EKG</td><td>Routine</td><td>06/22/2020 3:00 PM EST</td><td> Paroxysmal atrial fibrillation</td><td> </td> 06/22/2020 08:00:00 PM EST [facility]oxys[facility] PM Programming Dual 06/06/2020 12:00:00 AM EST [facility] ([facility] BLOOD COUNT COMPLETE AUTOMATED <td>CBC</td><td>Routine</td><td>05/24/2020</td><td></td><td> </td> 05/24/2020 12:00:00 AM EST [facility] Electrocardiogram Complete 05/19/2020 12:00:00 AM EST [facility] ([facility]) LARYNGOSCOPY FLEXIBLE FIBEROPTIC DIAGNOSTIC 05/02/2020 12:00:00 AM EDT [facility] ([facility], ) LIPID PANEL <td>LIPID PANEL</td><td>Rout ine</td><td>03/31/2020</td><td></td><td> </td> 03/31/2020 12:00:00 AM EDT [facility] THYROID STIMULATING HORMONE TSH <td>TSH</td><td>Routine</td><td>03/30/2020</td><td></td><td> </td> 03/30/2020 12:00:00 AM EDT [facility] THYROXINE FREE <td>T4, FREE</td><td>Routine </td><td>03/30/2020</td><td></td><td> </td> 03/30/2020 12:00:00 AM EDT [facility] THERAPEUTIC PX 1/> AREAS EACH 15 MIN EXERCISES 020 12:00:00 AM EDT [facility] ([facility]) THERAPEUTIC PX 1/> AREAS EACH 15 MIN EXERCISES 12:00:00 AM EDT [facility] ([facility] ) Results ID Date Data Source [id number] 04/26/2021 02:18:00 PM EDT [facility] ([facility]) Name Value Range Interpretation Code Description Data Maggie rce(s) Supporting Document(s) Surgical Pathology Consult Laboratory [facility] Surgical Pathology Report Name: BERNY LISA Collection Date: 04/26/2021 00:00 Received Date: 04/26/2021 14:20 Physician(s): GREGORY NICK MD ADJAPONG, OPOKU, MD Specimen(s) Received A: Material received for consultation, [facility], [id number], [facility] Clinical History 80-year-old woman with thyroid goiter an d left false vocal cord lesion. Diagnostic consultation. Diagnosis LARYNX, LEFT FALSE VOCAL CORD, BIOPSY ([id number], 04/20/21): SEVERE SQUAMOUS DYSPLASIA. (SEE MICROSCOPIC DESCRIPTION). 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 [...] Adenomatoid nodule(s) or nodular follicular disease CAP [facility] August 2019 Annual Release Electronically Signed By Rios Riley M.D., Attending Pathologist 04/27/2021 15:29:28 Gross Description Received from [facility] in [place], [place] are 7 H and E stained slides and 6 paraffin blocks, labeled [id number] (A, B1, B2, B3, B4, B5), with [...] developed and their performance characteristics determined by [facility] Pathology department. They have not been cleared or approved by the US Food and Drug Administration. The FDA has determined that such clearance or approval is not necessary. ID Date Data Source [id number] 04/27/2021 03:29:[address] [facility] Surgical Pathology ReportName: THIERRY LISAMRN: [id number] Number: [id number] Date: 04/26/2021 00:00Received Date: 04/26/2021 14:20Physician(s): GREGORY NICK MD ADJAPONG, OPOKU, MDSpecimeshira(s) ReceivedA: Material received for consultation, [facility], [id number], [facility]h34-rpvr-hcy woman with thyroid goiter and left false vocal cord lesion. Diagnostic consultation.DiagnosisLARYNX, LEFT FALSE VOCAL CORD, BIOPSY ([id number], 04/20/21): SEVERESQUAMOUS DYSPLASIA. (SEE MICROSCOPIC DESCRIPTION).B) THYROID, RIGHT LOBE, LOBECTOMY ([id number], 04/30/17):ENCAPSULATED/WELL-CIRCUMSCRIBED FOLLICULAR VARIANT OF PAPILLARY CARCINOMA.NODULAR HYPERPLASIA. [...] Electronically Signed By Rios Riley M.D., Attending Igfpjrabsoz59/14/2021 15:29:28 Gross DescriptionReceived from [facility] in [place], [place] are 7 H and Estained slides and 6 paraffin blocks, labeled [id number] (A, B1, B2, B3, B4,B5), with the [...] developed and their performance characteristics determined by [facility] Pathology department. They have not been cleared or approved by the USFood and Drug Administration. The FDA has determined that such clearanceor approval is not necessary. Name Value Range Interpretation Code Description Data Maggie rce(s) Supporting Document(s) ID Date Data Source [id number] 01/09/2021 07:19:00 AM EDT [facility] ([facility]) Name Value Range Interpretation Code Description Data Maggie rce(s) Supporting Document(s) Microscopic observation [Identifier] in Unspecified specimen by Non- gynecological cytology method Laboratory test result [facility] ([facility]) SPECIMEN: FNA Left lower isth mus/labeled left thyroid SPECIMEN ADEQUACY: Satisfactory for evaluation CATEGORIZATION: Benign DESCRIPTIONS: Scattered follicular cells noted in a background of hemosiderin laden macrophages, and scattered lymphocytes. COMMENTS: 01/10/2021942 Signed BRADLEY CRISTINA(ASCP) 01/10/2021 0943 (Prelim) Signed KINGA DAVIS MD 01/10/2021 1356 ID Date Data Source [id number] 01/09/2021 07:18:00 AM EDT [facility] ([facility]) Name Value Range Interpretation Code Description Data Maggie rce(s) Supporting Document(s) Microscopic observation [Identifier] in Unspecified specimen by Non- gynecological cytology method Laboratory test result [facility] ([facility]) SPECIMEN: FNA Right middle is thmus/labeled right thyroid Specimen receiced in Cytolyt (light pink)/AFIRMA SPECIMEN ADEQUACY: Satisfactory for evaluation CATEGORIZATION: Benign DESCRIPTIONS: Rare follicualr groups noted in a background of hemosiderin laden macrophages and scattered lymphocytes. COMMENTS: 01/10/202139 Signed BRADLEY CRISTINA(ASCP) 01/10/2021 0936 (Prelim) Signed KINGA DAVIS MD 01/10/2021 1356 ID Date Data Source [id number] 01/09/2021 07:15:00 AM EDT [facility] ([facility]) Name Value Range Interpretation Code Description Data Maggie rce(s) Supporting Document(s) Microscopic observation [Identifier] in Unspecified specimen by Non- gynecological cytology method Laboratory test result [facility] ([facility]) SPECIMEN: FNA Right middle is thmus/labeled right thyroid Cyotlyt (light pink) and AFIRMA brush received SPECIMEN ADEQUACY: Satisfactory for evaluation CATEGORIZATION: Benign DESCRIPTIONS: Reactive follicular cells noted in a backgound of scattered lymphocytes. COMMENTS: 01/10/2021 - 946 Signed BRADLEY CRISTINA(ASCP) 01/10/2021 0948 (Prelim) Signed KINGA DAVIS MD 01/10/2021 1356 ID Date Data Source [id number] 12/30/2020 01:58:00 PM EDT [facility] ([facility]) Name Value Range Interpretation Code Description Data Maggie rce(s) Supporting Document(s) Parathyrin.intact [Mass/volume] in Serum or Plasma 70.0 pg/mL 18.5-88.0 Normal (applies to non-numeric results) [facility] ([facility]) ID Date Data Source [id number] 12/30/2020 01:58:00 PM EDT [facility] ([facility]) Name Value Range Interpretation Code Description Data Maggie rce(s) Supporting Document(s) Thyroglobulin Quantitative 1417.7 ng/mL 1.5-38.5 Above high normal [facility] ([facility]) Specimen was diluted in order to [...] Immunometric Assay Performed at: RN - [facility] [address] [id number] Process Control Supervisor: Ariana Hutchison MD, Phone: [phone] Thryoglobulin Antibodies (Rios) Laboratory test result 0.0-0.9 Normal (applies to non-numeric results) [facility] ([facility] ) Thyroglobulin Antibody measured by Potential an Riesel Methodology ID Date Data Source [id number] 12/30/2020 01:58:00 PM EDT [facility] ([facility]) Name Value Range Interpretation Code Description Data Maggie rce(s) Supporting Document(s) Triiodothyronine (T3) Free [Mass/volume] in Serum or Plasma 3.1 pg/mL 2.2-4.0 Normal (applies to non-numeric results) [facility] ([facility]) Calcium.ionized [Mass/volume] in Serum o r Plasma by Ion-selective membrane electrode (ISE) 4.8 mg/dL 4.5-5.3 Normal (applies to non-numeric results ) [facility] ([facility]) ID Date Data Source [id number] 12/30/2020 01:58:00 PM EDT [facility] ([facility]) Name Value Range Interpretation Code Description Data Maggie rce(s) Supporting Document(s) Free T4 0.79 ng/dL 0.76-1.46 Normal (applies to non-numeric resul ts) [facility] ([facility]) Thyroid Stimulating Hormone 0.295 uIU/ML 0.358-3.740 Below low normal [facility] ([facility]) ID Date Data Source [id number] 12/09/2020 02:58:00 PM EDT [facility] ([facility]) Name Value Range Interpretation Code Description Data Maggie rce(s) Supporting Document(s) Misc Laboratory [facility] result [facility] ID Date Data Source [id number] 12/02/2020 08:12:23 AM EDT [facility] Name Value Range Interpretation Code Description Data Maggie rce(s) Supporting Document(s) &PDF [facility] TBCCRv1nNlIFPaZt27/UBGilLHSap2LcHQblKLf2QMesKKAuG0UslBebEFSJW7OHDYqZNXAbElUaVKOq idW [file] PAINTER CHASSIS/11luvKs00KpGFGHHNm6yLaQgggQUBaYAFEpP1Mx [file] ICAgICAgICAgICAgICAgICAgICAgICAgICAgICAgIC AgICAgICAgICAgICAgICAgDQogICAgICAgICAgICAgICAgICAgICAgICAgICAgICAgICAgICAgICAgIC AgICAgICAgICAgICAgICAgICAgICAgICAgICAgICAgICAgICAgICAgICAgICAgICAgICAgICAgICAgDQ ogICAgICAgICAgICAgICAgICAgICAgICAgICAgICAg ICAgICAgICAgICAgICAgICAgICAgICAgICAgICAgICAgICAgICAgICAgICAgICAgICAgICAgICAgICAg ICAgICAgICAgDQogICAgICAgICAgICAgICAgICAgICAgICAgICAgICAgICAgICAgICAgICAgICAgICAg ICAgICAgICAgICAgICAgICAgICAgICAgICAgICAgIC AgICAgICAgICAgICAgICAgICAgDQogICAgICAgICAgICAgICAgICAgICAgICAgICAgICAgICAgICAgIC AgICAgICAgICAgICAgICAgICAgICAgICAgICAgICAgICAgICAgICAgICAgICAgICAgICAgICAgICAgIC AgDQogICAgICAgICAgICAgICAgICAgICAgICAgICAg ICAgICAgICAgICAgICAgICAgICAgICAgICAgICAgICAgICAgICAgICAgICAgICAgICAgICAgICAgICAg ICAgICAgICAgICAgDQogICAgICAgICAgICAgICAgICAgICAgICAgICAgICAgICAgICAgICAgICAgICAg ICAgICAgICAgICAgICAgICAgICAgICAgICAgICAgIC AgICAgICAgICAgICAgICAgICAgICAgDQogICAgICAgICAgICAgICAgICAgICAgICAgICAgICAgICAgIC AgICAgICAgICAgICAgICAgICAgICAgICAgICAgICAgICAgICAgICAgICAgICAgICAgICAgICAgICAgIC AgICAgDQogICAgICAgICAgICAgICAgICAgICAgICAg ICAgICAgICAgICAgICAgICAgICAgICAgICAgICAgICAgICAgICAgICAgICAgICAgICAgICAgICAgICAg ICAgICAgICAgICAgICAgDQogICAgICAgICAgICAgICAgICAgICAgICAgICAgICAgICAgICAgICAgICAg ICAgICAgICAgICAgICAgICAgICAgICAgICAgICAgIC CdQDGhRNWuVUSpRLJfEYWlEUMlDLMvCDMfFEl8B9xrDMPwELIjME8pFWp5Pn7+EFdRTyLfEUU1cgCkfE 6WFC6ji8OnQTrxHYMvw0ToSJf4PC0NMMTjEMhyAF2ZLJwcvl9CXYMiMMTmaWNCu5zcHzWbLHF1JAWjHb wgQG9LUMSxH2iypnXcLAYdEXHBOEiuFCRVTZ4YGfNh H7YmcZ18MBESIg5+QDjhrsHrFxvKWuU6GBWwt7QfTDz1XZ6ZDPLvDBlvVW1IZGJngJ2cTFegSH9VBfSi YgRwQZKEXbOfA91srDWlQQa8F5XfEuOpOFUnCsstFYFuJQitPfVpKZVuNcNqRXgqKG6+ID4+UQxuZG9I JOzrnkAbZEDbWy2UNILgSPM2PNBbdHFcHhXiYDJNXO rwHA3SjLBxXSG7eP0nYRdlKQTxTVJeQ1gQDdChsUnuNP35jAawomUeaZXtZKo+Xr3COS9jk8OrDTb9ff DeNIueWDI0IZhlWSDcFUPmIZRbSSU9QNX0NVWGIzJqUIOcJYRrJRrgUEIoBEDxmo0VIEOaTDQlEeY7RF QwXRWcMVVvVGleZELvIGO5ZVc2IPUwHPBnJP7BXpWw IDWqPLZuXEtcBFJjZRSxpq4FCAYzQBDwNUKlCuLwOHMgPEZqPUykOTAhFAX5GqDhWGIsRCAkCW0YQcUn ZFViHOxoIvPhNEFgTTKgow7VWQMeHVUvXzZ1FCVfVIFiNYVzDJcmVWUfGFG0KVH8XKWgYDYlNA6GHnAt ZQSaDWm8CbLgRNByPQBgfz5UWFMiSOSpIAkdOzGvRX QoPDEjIHpdLKSxHAJ4VbU2SAQwUKJiEJ2QIcZfBGTiHHl3NrcoDLTxPJFbci8XSNTqTZDhXPT8WPApLG BaLNAcUSzcZSGoWDXkSDJbIIQkUKAcRL2UAdDmZQMaDSSxHPZxCPCmEJUsqw6CYJNmFDOzHEI5CUZnUQ RiLAJoHEapRZHbBNElTTZ6HUAtWWApDS4JAjBbDAYn TKR0AGrmDDLjKRVyzx1CXWYsZBLhJjz1WcHbVVCmQWGaFSmfPVPwHOUuFVHnEFBtYCWhOX2YXqZeMZAu DPE3NwSnKEPaZDZaim7TEXZtLQElUvz0JVObBDZoRGWnJKyjOAQkHBF2BCS7IYFqEIDjNR7IGdYxNLAs UPDwPpWsCALmOFOdsx3JYPVvBWJtCKT8TYKcJOEtTU MuEYunTEZdLAG3BQWxMVBlQXPyWY6PCnZsUCGhCYPtLZPdZJMfQWFcou3RBAMjPSUeYBMxYcEnOAHyQS BaNMsnIMBsBDL1LEK6YBEyAQMxML0HZeQiDQJrXXQ0ZhHfDFSjDMSupw2BOFHpFXXgMxRgHPAkTVGbVC JdYInoRPZeWUR0NuI8KWHjYKCcFV7EXwYuBMMcEDqc DFWoJWYdMXXlkk8QoJQpfCuabi8FPOiPMq4VuQsoGZL6QQzmEl2gwDLcCJMePOYREf8ZyuPsFPPbPBKG WPkhXSLpRTtgTbJqIwVeALSuESl2KyJbTuBoWJMoCEXzTIM9GTO0LkA0XYPiCrWmPNT1D7H6Bwt5AIOf WAV0V2CvInL5MQf7JZZ+NQ1pJSb+Rb7Jo1IjgoT3qeEiCLptYTO5AC3SOISII8AHMr== ID Date Data Source [id number] 11/15/2020 12:57:00 PM EDT [facility] ([facility]) Name Value Range Interpretation Code Description Data Maggie rce(s) Supporting Document(s) PDFReport Laboratory test result [facility] ([facility]) FVC-Pre 1.45 L [facility] ([facility]) FVC-%Pred-Pre 54 L [facility] ([facility]) FVC-Pred 2.65 L [facility] ([facility]) FVC-LLN 1.93 L [facility] ([facility]) Fev1-Pred 1.97 L [facility] ([facility]) Fev1-Pre 1.26 L [facility] ([facility]) Fev1-%Pred-Pre 64 L [facility] ([facility]) Fev1-LLN 1.36 L [facility] ([facility]) Fev6-Pred 2.50 L [facility] ([facility] ) Fev6-Pre 1.45 L [facility] ([facility]) Fev6-%Pred-Pre 58 L [facility] ([facility]) Zyp3owh-Fqf 87 % [facility] ([facility]) Fev6-LLN 1.80 L [facility] ([facility]) Gdd5lkq-Viqd 73 % [facility] ([facility]) Sms7lej-Qgft 94 % [facility] ([facility]) Rpx2puy-BDV 64 % [facility] ([facility]) Lvm3nof-%Pred-Pre 118 % [facility] ([facility]) Rup6vwx-%Pred-Pre 105 % [facility] ([facility]) FEFMax-Pred 4.75 L/E/sec [facility] ([facility]) Qwe2mrq-Gks 100 % [facility] ([facility]) FEFMax-LLN 2.98 L/E/sec [facility] ([facility]) FEFMax-Pre 5.30 L/E/sec [facility] ([facility]) FEFMax-%Pred-Pre 111 L/E/sec [facility] ([facility]) Puf7055-%Pred-Pre 123 L/E/sec [facility] ([facility]) Zqh8508-IJR 0.08 L/E/sec [facility] ([facility]) Dxd0219-Dxzo 1.36 L/E/sec [facility] ([facility]) Nvd4452-Hpj 1.69 L/E/sec [facility] ([facility]) ExpTime-Pre 5.89 sec [facility] ([facility]) Ozf8cyx2-Ciga 77 % [facility] ([facility]) Uor4zgj1-Tcs 87 % [facility] ([facility]) Vsm9ejg1-WSK 68 % [facility] ([facility]) Tge9dga9-%Pred-Pre 112 % [facility] ([facility], ) ID Date Data Source [id number] 11/09/2020 08:27:54 PM EDT [facility] Name Value Range Interpretation Code Description Data Maggie rce(s) Supporting Document(s) FREE THYROXINE @ 0.99 ng/dL (0.76-1.46) [facility] ID Date Data Source KAISER CHEST 2 VIEW 11/03/2020 12:00:00 AM EDT eCW1 ([facility]) Name Value Range Interpretation Code Description Data Maggie rce(s) Supporting Document(s) Laboratory studies (set) KAISER CHEST 2 VIEW eCW1 ([facility]) ID Date Data Source [id number] 09/30/2020 11:23:23 AM EDT [facility] Name Value Range Interpretation Code Description Data Maggie rce(s) Supporting Document(s) &PDF [facility] JSDLUl9fHhXUBgPp06/YICkyVURen0HyPZgnXMf3XJwaQRRpK1GlwEwfXWDUJ2QGTBcXVROyInHbCFHz waW [file] ICAgICAgICAgICAgICAgICAgICAgICAgICAgICAgICAgICAgICAgICAgICAgICAgICAgICAgICAgICAg TGNkIHVaXIAaZN3ODHXhTHSeAFXqOMZsGEMkRMLyNN AgICAgICAgICAgICAgICAgICAgICAgICAgICAgICAgICAgICAgICAgICAgICAgICAgICAgICAgICAgIC LnVUViDOEeFXBvVFNcXQKvNELmZH8ELUSnXIAlYCVkGFGzGXVkSMDhSLFpHJOiXDPuHYKeQSJeCWVcYZ AgICAgICAgICAgICAgICAgICAgICAgICAgICAgICAg RRPlTTUwWJUvKNWbUAUbEAYsZGCzOOCjUBCrAXLfDU3ENVViPIZdJTYxPSZcANMlIWZlOWLhUMGwDWQz ICAgICAgICAgICAgICAgICAgICAgICAgICAgICAgICAgICAgICAgICAgICAgICAgICAgICAgICAgICAg UBXtNZAsHARnYGHlHK8XWSMeDIJkIUVzREJrVZTgJL AgICAgICAgICAgICAgICAgICAgICAgICAgICAgICAgICAgICAgICAgICAgICAgICAgICAgICAgICAgIC TcSCYhUCVdYTFwQKZxEXIsYSVaFKEvQP2GODQlVTFbICUqSJKmNFKuUIIyHQNbLBCgVPUdMVQmZMQrET AgICAgICAgICAgICAgICAgICAgICAgICAgICAgICAg KWFgDFEhKAEnPPHvZJXbRIJvVMAnYVQiQDLjVTBgCNIwNI5LTDRxFMWjDBHlMKWrORFyPUFeORAiKTAk ICAgICAgICAgICAgICAgICAgICAgICAgICAgICAgICAgICAgICAgICAgICAgICAgICAgICAgICAgICAg GNBaXWCnOQNpLSGhDHWkKG0TBPIkESJbUPLkNGWbSB AgICAgICAgICAgICAgICAgICAgICAgICAgICAgICAgICAgICAgICAgICAgICAgICAgICAgICAgICAgIC HbVQXtMYOtTOJiYSDlSUBgPQYeCBCbTNZzQX2FXVGdMOZhNDSdAWLlNOExMZDyTJByLTTmDDAqQAGiFC AgICAgICAgICAgICAgICAgICAgICAgICAgICAgICAg DALrBYJzDOInUROjXGZcJWIaEAEuUVFlYYPbMPOtTVUeGSLoVR4TUEZiWCVwCBHaSBDzAONoPAGdLMSj ICAgICAgICAgICAgICAgICAgICAgICAgICAgICAgICAgICAgICAgICAgICAgICAgICAgICAgICAgICAg UTBvRHShWCZzRFRbFMFrQPNfZB8XBR30bGQfs4A0YL PjLB8lexi/Zv9BHEliwiXnjZDyTW1QZxHpSF0fny7WVuExMI8evy7BXZiZRvRsE2D5jIIwRXDbCJWFBc PeH98cPTzoNc89JSnfAVFiTqWhIDi1Qt1VSjIlE8umOVSeBmM3CUVaPsCjEJpzAP2Pq7LicMPkDDj+Pg 5OYW0ps3OmUNwpXFVwES8djm0BIJnBLrPsJ9K5iXRe G2S1NHyfNt9IKKEeWGXwLAorPOVXGQldJU5LFO0jfrE8UR8GlZNcXKPlELCpcMWnGBy9O86jaLWmHEqf RL8TAMO+Sherry+Fk2FRQBzMMWzENEcBqBfEPLLYbJvI85adTPzYMHvOJK4HSYrAc9CBCVvY6DzjuCmkErx qcIjSKOlGAJCGF6KKKpfyoExxIGtgPfoTZ53bQwkIF 9GYm5BBhSyHL4kbr6NvFGuJp9NBRLqOD4WTALhKXDdJEQjEXV2KOFbAtYaXUygQLJpTVNvEAN1MKUlOI TuFV3ESrTpYYPhOFJ8JMAiGLNzKRJcqf6XCBAfVMMpTfJ1UXTyUZVqMQHtVQrvDESxCOUfEHs2LGKqCH OcRR4ZVeRkWLRsIZZ6PBWoJVJwVBMdav7HLTWlVOZw Rvd9INRjJDHxREYhQVvzCFQpGHWkLIY1KZBqDTVcVQ9JPuFqYXByVHBcRHDuEFZaJSYxsg6UGVCtJIJh WVZ0LyJtUPChRMDlHOfuSWUgOTB7CsSfQLUxYLInAH9KUsDgRINsSUB1ADPnFPNaQCHzxn3GHYSmDBJu WCBpBDVnJNUlWQPuITeeCYXpKKR8TJb3YJQyTSFwCC 3HYsBwSFGlDCW2UUexPSRgTBXpem2KWDFbZTDpElw3PQQdRHMjIYQbTOusWZTeSZThTaL8VPXdXUTrZC 6RFvNuOZZbMVX1JBZdRBZhWRQbil9MMTVpQRPwOmScVFNfKAHcESMdHGxhGVVoLPA8NJKnZMZuGSPpQQ 3NHtFqEBrxWJYPVkg1AKxaM1q8DQIbIC5NU0Zln3Jr YScqXRESHWagOF7rigArFRMrKt2TO6hQGxg7TYO8QmwjFpUoEJNyCBA3LlVyMID2XJW2RNBiLxAmHV4p PQy8KZFhTAAfMTJaV2FiGpqqULKyPVkrSLy5AgN6NJXyJuFrLL7HVm6OTbX3NZA9wSTyWq2CGKp0KdzB KeXgRT2VHGn= ID Date Data Source FREE T4 & TSH PANEL 08/10/2020 12:00:00 AM EST eCW1 ([facility]) Name Value Range Interpretation Code Description Data Maggie rce(s) Supporting Document(s) 0.354 0.358-3.740 THYROID STIMULATING HORM ONE eCW1 ([facility]) 0.82 0.76-1.46 FREE T4 eCW1 ([facility]) ID Date Data Source FREE T3 08/10/2020 12:00:00 AM EST eCW1 ([facility]) Name Value Range Interpretation Code Description Data Maggie rce(s) Supporting Document(s) 3.0 2.2-4.0 W ([facility]) ID Date Data Source [id number] 07/02/2020 10:41:48 AM EST [facility] Name Value Range Interpretation Code Description Data Maggie rce(s) Supporting Document(s) &PDF [facility] PCHJVt9qIkYPRkEu84/TDJifYJWia9ZxEJatIBk9XAuaKWEdU7YppMqpWEVXP2CRGZgXINYhAaUaAJEm [facility] [file] AgICAgICAgICAgICAgICAgICAgICAgICAgICAgICAgICAgICAgICAgICAgICAgICAgICAgICAgICAgIC AgICAgICAgICAgICAgICAgICAgICAgDQogICAgICAg ICAgICAgICAgICAgICAgICAgICAgICAgICAgICAgICAgICAgICAgICAgICAgICAgICAgICAgICAgICAg ICAgICAgICAgICAgICAgICAgICAgICAgICAgICAgICAgDQogICAgICAgICAgICAgICAgICAgICAgICAg ICAgICAgICAgICAgICAgICAgICAgICAgICAgICAgIC AgICAgICAgICAgICAgICAgICAgICAgICAgICAgICAgICAgICAgICAgICAgDQogICAgICAgICAgICAgIC AgICAgICAgICAgICAgICAgICAgICAgICAgICAgICAgICAgICAgICAgICAgICAgICAgICAgICAgICAgIC AgICAgICAgICAgICAgICAgICAgICAgICAgDQogICAg ICAgICAgICAgICAgICAgICAgICAgICAgICAgICAgICAgICAgICAgICAgICAgICAgICAgICAgICAgICAg ICAgICAgICAgICAgICAgICAgICAgICAgICAgICAgICAgICAgDQogICAgICAgICAgICAgICAgICAgICAg ICAgICAgICAgICAgICAgICAgICAgICAgICAgICAgIC AgICAgICAgICAgICAgICAgICAgICAgICAgICAgICAgICAgICAgICAgICAgICAgDQogICAgICAgICAgIC AgICAgICAgICAgICAgICAgICAgICAgICAgICAgICAgICAgICAgICAgICAgICAgICAgICAgICAgICAgIC AgICAgICAgICAgICAgICAgICAgICAgICAgICAgDQog ICAgICAgICAgICAgICAgICAgICAgICAgICAgICAgICAgICAgICAgICAgICAgICAgICAgICAgICAgICAg ICAgICAgICAgICAgICAgICAgICAgICAgICAgICAgICAgICAgICAgDQogICAgICAgICAgICAgICAgICAg ICAgICAgICAgICAgICAgICAgICAgICAgICAgICAgIC AgICAgICAgICAgICAgICAgICAgICAgICAgICAgICAgICAgICAgICAgICAgICAgICAgDQogICAgICAgIC AgICAgICAgICAgICAgICAgICAgICAgICAgICAgICAgICAgICAgICAgICAgICAgICAgICAgICAgICAgIC AgICAgICAgICAgICAgICAgICAgICAgICAgICAgICAg RAc6S1ybUZXbIIAhTT6nMQt7Bs4+UEbZQeCrPJT8mlTqrG5UXW7gw9CzRZtyBHUoo8RhUWn2EU6AGZGb MHwmHG9BLEbozd7LFYLeQSTdjSTDx2wuCnXxVDZ9CNFbLzscQN8VJVDoL6rfryEoWUXhIVDIQDcoRJXA VT9HAbMbQ6RhxA57JDDXHd0+DQplbmRvYmoNCjIxID Lyn4WoNQr5GD9CNDLcQOpxVX5PKRWhpS1fMLngRC1RGvYfXAXlLNQXNoQwW32jtPTlZBp5F4RhUzUeUZ VkRmlsZXMgPDwvTmFtZXMgWyBdDQogID4+ID4+GOybKW1XBNtgmnKbNKSiQb1YENMuTVN9FWYpeDQrXs HjNVZDWKsvAM7TcMOaYVP1pA7wNGtuYPThWDRwD0eW PgPqnEcnFZ96vWnncfBziTNmIJt+Cl2EVM1nd1FaSFf9vcAjZJwqZRRuCQuzGBQbBITeBWBwBDG8MRP9 VMPJMyYbYBWpUIOcHQteCYOhGAMnkg2ZOJUjXSGvCyb5PNPhUVRiVDBzDTuzWZEyCKO8NCR9LIFhUMHt LU9BZdUmTHYoFMBbQZMfMGBwGNPyiu6ACGUeDESxGn N7YUYjMNRxKFQzRAjyJXMgLAApUtU3NRHiUSBcJI2BVnAxAKRsIFU9DMFbXFBsZPEuwb2OOVKjJSKyDW LlOnSsYRSuIMXyZHscKVFhCFE3QWm2WGTgUNOcQQ3PRxRgUMMcBAOnTfJqWLVcMJEhuq8KGNUaHYBuCQ G1QpCiZARwWYXzINqsCQFtGNC7IeZtPSHoAUYbZA6K HwKcRJMxZBD4GRGlZWUlTKBlsk7KTOKmFYJkItlrWyQtEBIkDBWhXQhzDKTbWPE0IzIjVEYoJNEuUZ4Q BqLvSFRvETw7AxYjAXSsQOGyty0SSXFmFBNzGPV7JgMuAZKbYWJpTWirKMWtJKFbPdO9OQGlWJSsBS1R DoJzIAJhBEY5AWUqJFOvBGUplm6QZYYnVJOrEoN2Xq NqXNZvQUZkFVyhSVVoZFS2IzMfSTUpMLWvSE6RGmLcNHewFWTYPxh3FEtwT3h1AJYqPk7AY6Aut1DbIb SsZDORALznHN6nvrNxIQYoCd0VG0aVJuv2DbApRaC9NpyzKEW2BlUaETMdNjbdNDS7VFN9ZMj4Au2gNW VlApLmPUGaVSCdLLdaP6W7SBAaMDOhVln8Ehl1EcF4 PdWiDY4SMp4OFfB6MZB6aSKgZz1EPEp2AZaGMkWbOW8ZUJh= ID Date Data Source [id number] 05/30/2020 03:48:06 PM EST [address] [address]Jjuufhx Name: BERNY LIMB: 1940Sex: FOrdering Provider: Veronica Chance Prov: Veronica GUERRARefpaulina Provider: Procedure Performed: XR CHEST PORTABLEExam Date: 05/30/2020 15:43MRN: [id number] Number: [id number] Class: OutpatientAccount #: [id number] for Exam: ppmTechnique: AP portable view obtained.Comparison: [...] KELLEN VALENCIA On 05/30/2020 3:48 PMWorkstation ID: [id number] Name Value Range Interpretation Code Description Data Maggie rce(s) Supporting Document(s) ID Date Data Source [id number] 05/30/2020 03:24:26 PM EST [facility] Name Value Range Interpretation Code Description Data Maggie rce(s) Supporting Document(s) &PDF [facility] TQYZQg7hIfDHOiYs91/MKJfiNRFcd4ZeXRsyMOg7EFggHNFlQ6MekJklYREEY2EYQAnOMLVbXqUkPKId FcG [file] Fq4NSdR4JTH7lOEnSi0MNKp9ZNDECrGgRY5YTJi= ID Date Data Source [id number] 05/25/2020 10:00:00 AM EST [facility] Name Value Range Interpretation Code Description Data Maggie rce(s) Supporting Document(s) SARS coronavirus 2 RNA [facility] This lab was ordered by [facility] and reported by [facility]. ID Date Data Source [id number] 05/09/2020 12:51:00 PM EDT [facility] ([facility]) Name Value Range Interpretation Code Description Data Maggie rce(s) Supporting Document(s) Microscopic observation [Identifier] in Unspecified specimen by Non- gynecological cytology method [facility] SPECIMEN: FNA Left thyroid Specimen receceived in Cytolyt SPECIMEN ADEQUACY: Satisfactory for evaluation CATEGORIZATION: No Malignancy identified DESCRIPTIONS: Scattered groups of follicular cells, some with hurthle cell changes and rare cell with degenerative atypia, seen in a background of foamy macrophages and debris. COMMENTS: 05/10/20201434 Signed BRADLEY CRISTINA CT(ASCP) 05/10/2020 0738 (Prelim) Signed Glen Rubio MD 05/10/20201434 ID Date Data Source [id number] 05/09/2020 12:50:00 PM EDT [facility] Name Value Range Interpretation Code Description Data Maggei rce(s) Supporting Document(s) Microscopic observation [Identifier] in Unspecified specimen by Non- gynecological cytology method Laboratory test result [facility] ([facility]) SPECIMEN: FNA Isthmus nodule Specimen received in Cytolyt SPECIMEN ADEQUACY: Satisfactory for evaluation CATEGORIZATION: No Malignancy identified DESCRIPTIONS: Groups of follicular cells noted in a background of macrophages and several multinucleated histiocytes/giant cells. COMMENTS: 05/10/20201436 Signed BRADLEY CRISTINA(ASCP) 05/10/2020 0727 (Prelim) Signed Glen Rubio MD 05/10/20201436 ID Date Data Source [id number] 05/09/2020 12:49:00 PM EDT [facility] ([facility]) Name Value Range Interpretation Code Description Data Maggie rce(s) Supporting Document(s) Microscopic observation [Identifier] in Unspecified specimen by Non- gynecological cytology method Laboratory test result [facility] ([facility]) SPECIMEN: FNA Right thyroid Specimen received [...] clinical findings is recommended. See also reports [id number] and [id number] 05/10/2020 - 1445 Signed BRADLEY CRISTINA(ASCP) 05/10/2020 0725 (Prelim) Signed Glen Rubio MD 05/10/2020 1445 Procedure Social History Code Duration Value Status Description Data Source(s ) Smoking 04/18/2021 12:00:00 AM EDT Never Smoker completed Never S moker eCW1 ([facility]) Smoking 04/18/2021 12:00:00 AM EDT Never Smoker completed Never S moker eCW1 ([facility]) Smoking 02/09/2021 12:00:00 AM EDT Never Smoker completed Never S moker eCW1 ([facility]) Smoking 02/09/2021 12:00:00 AM EDT Never Smoker completed Never S moker eCW1 ([facility]) Smoking 02/09/2021 12:00:00 AM EDT Never Smoker completed Never S moker eCW1 ([facility]) Smoking 01/20/2021 12:00:00 AM EDT Never Smoker completed Never S moker eCW1 ([facility]) Smoking 12/19/2020 12:00:00 AM EDT Patient has never smoked co mpleted Patient has never smoked [facility] ([facility]) Alcohol intake 12/14/2020 12:00:00 AM EDT Lifetime non-drinker (finding) completed Lifetime non-drinker (finding) [facility] Alcohol intake 11/21/2020 12:00:00 AM EDT Lifetime non-drinker (finding) completed Lifetime non-drinker (finding) [facility] Alcohol intake 11/08/2020 12:00:00 AM EDT Lifetime non-drinker (finding) completed Lifetime non-drinker (finding) [facility] Smoking 11/03/2020 12:00:00 AM EDT Never Smoker completed Never S moker eCW1 ([facility]) Smoking 11/03/2020 12:00:00 AM EDT Never Smoker completed Never S moker eCW1 ([facility]) Smoking 11/03/2020 12:00:00 AM EDT Never Smoker completed Never S moker eCW1 ([facility]) Smoking 09/16/2020 12:00:00 AM EST Never Smoker completed Never S moker eCW1 ([facility]) Smoking 09/16/2020 12:00:00 AM EST Never Smoker completed Never S moker eCW1 ([facility]) Smoking 09/16/2020 12:00:00 AM EST Never Smoker completed Never S moker eCW1 ([facility]) Smoking 09/16/2020 12:00:00 AM EST Never Smoker completed Never S moker eCW1 ([facility]) Smoking 08/10/2020 12:00:00 AM EST Never Smoker completed Never S moker eCW1 ([facility]) Smoking 06/16/2020 12:00:00 AM EST Never Smoker completed Never S moker eCW1 ([facility]) Smoking 06/16/2020 12:00:00 AM EST Never Smoker completed Never S moker eCW1 ([facility]) Alcohol intake 05/31/2020 12:00:00 AM EST Never completed [facility] Smoking 05/31/2020 12:00:00 AM EST Never smoker completed Never s moker [facility] Smoking 04/22/2020 12:00:00 AM EDT Never Smoker completed Never S moker eCW1 ([facility]) Smoking 04/22/2020 12:00:00 AM EDT Never Smoker completed Never S moker eCW1 ([facility]) Vital Signs ID Date Data Source UNK Name Value Range Interpretation Code Description Data Source(s) Body surface area Derived from formula 2.01 m2 2.01 m2 [facility] Body height 65 [in_i] 65 [in_i] [place] ([facility], ) 5'5" Body weight 208.00 [lb_av] 208.00 [lb_av] MEDEN T ([facility], ) Body mass index (BMI) [Ratio] 34.6 kg/m2 34.6 k g/m2 [facility] ([facility]) [place] body weight 125 [lb_av] 125 [lb_av] MEDEN T ([facility]) Body weight 94.349 kg 94.349 kg [facility] ([facility]) Body weight 216 [lb_av] 216 [lb_av] eCW1 ([facility]) Body height [in_i] eCW1 ([facility]) Body mass index (BMI) [Ratio] 37.66 kg/m2 37.66 kg/m2 eCW1 ([facility]) Heart rate 60 /min 60 /min eCW1 ([facility]) Respiratory rate 18 /min 18 /min eCW1 ([facility]) Body temperature 96.4 [degF] 96.4 [degF] eCW1 ( [facility]) Systolic blood pressure 150 mm[Hg] 150 mm[Hg] e CW1 ([facility]) Diastolic blood pressure 82 mm[Hg] 82 mm[Hg] eCW1 ([facility]) Body height [in_i] eCW1 ([facility]) Body weight 213 [lb_av] 213 [lb_av] eCW1 ([facility]) Systolic blood pressure 110 mm[Hg] 110 mm[Hg] e CW1 ([facility]) Diastolic blood pressure 74 mm[Hg] 74 mm[Hg] eCW1 ([facility]) Body mass index (BMI) [Ratio] 37.14 kg/m2 37.14 kg/m2 eCW1 ([facility]) Heart rate 60 /min 60 /min eCW1 ([facility]) Respiratory rate 19 /min 19 /min eCW1 ([facility]) Body temperature 98 [degF] 98 [degF] eCW1 ([facility]) Body mass index (BMI) [Ratio] 35.8 kg/m2 35.8 k g/m2 [facility] ([facility]) Body surface area Derived from formula 2.04 m2 2.04 m2 [facility] ([facility]) Body weight 215.00 [lb_av] 215.00 [lb_av] MEDEN T ([facility]) Body height 65 [in_i] 65 [in_i] MED[facility] ([facility]) 5'5" [place] body weight 125 [lb_av] 125 [lb_av] MEDEN T ([facility]) Body weight 97.524 kg 97.524 kg [facility] Body weight 215.2 [lb_av] 215.2 [lb_av] eCW1 ([facility]) Body height [in_i] eCW1 ([facility]) Body mass index (BMI) [Ratio] 37.52 kg/m2 37.52 kg/m2 eCW1 ([facility]) Systolic blood pressure 130 mm[Hg] 130 mm[Hg] e CW1 ([facility]) Diastolic blood pressure 68 mm[Hg] 68 mm[Hg] eCW1 ([facility]) Body height 65 [in_i] 65 [in_i] MEDENT ([facility]) 5'5" Body weight 216.00 [lb_av] 216.00 [lb_av] MEDEN T ([facility]) Body mass index (BMI) [Ratio] 35.9 kg/m2 35.9 k g/m2 [facility] ([facility]) [place] body weight 125 [lb_av] 125 [lb_av] MEDEN T ([facility]) Body weight 97.978 kg 97.978 kg [facility] ([facility]) Body surface area Derived from formula 2.04 m2 2.04 m2 [facility] ([facility]) Body height 65 [in_i] 65 [in_i] MEDENT ([facility]) 5'5" Body weight 216.00 [lb_av] 216.00 [lb_av] MEDEN T ([facility]) Body mass index (BMI) [Ratio] 35.9 kg/m2 35.9 k g/m2 [facility] ([facility]) [place] body weight 125 [lb_av] 125 [lb_av] MEDEN T ([facility]) Body weight 97.978 kg 97.978 kg [facility] ([facility]) Body surface area Derived from formula 2.04 m2 2.04 m2 [facility] ([facility]) Systolic blood pressure 120 mm[Hg] 120 mm[Hg] [facility] Diastolic blood pressure 70 mm[Hg] 70 mm[Hg] [facility] ([facility]) Heart rate 79 /min 79 /min [facility] ([facility]) Oxygen saturation in Arterial blood by Pulse oximetry 94 % 94 % [facility] ([facility]) Body temperature 97.0 [degF] 97.0 [degF] [facility] ([facility]) Body height 65 [in_i] 65 [in_i] [facility] ([facility]) 5'5" Body weight 216.00 [lb_av] 216.00 [lb_av] MEDEN T ([facility]) Body mass index (BMI) [Ratio] 35.9 kg/m2 35.9 k g/m2 [facility] ([facility]) [place] body weight 125 [lb_av] 125 [facility]_av] [facility] Body weight 97.978 kg 97.978 kg [facility] ([facility]) Body surface area Derived from formula 2.04 m2 2.04 m2 [facility] ([facility]) Systolic blood pressure 146 mm[Hg] 146 mm[Hg] [facility] Diastolic blood pressure 90 mm[Hg] 90 mm[Hg] [facility] Heart rate 60 /min 60 /min [facility] Body height 165.1 cm 165.1 cm [facility] Body weight 98.431 kg 98.431 kg [facility] Body mass index (BMI) [Ratio] 36.11 kg/m2 36.11 kg/m2 [facility] Oxygen saturation in Arterial blood by Pulse oximetry 95 % 95 % [facility] Systolic blood pressure 160 mm[Hg] 160 mm[Hg] [facility] Diastolic blood pressure 90 mm[Hg] 90 mm[Hg] [facility] Heart rate 65 /min 65 /min [facility] Body height 165.1 cm 165.1 cm [facility] Body weight 100.245 kg 100.245 kg [facility] Body mass index (BMI) [Ratio] 36.78 kg/m2 36.78 kg/m2 [facility] Oxygen saturation in Arterial blood by Pulse oximetry 95 % 95 % [facility] [place] body weight 125 [lb_av] 125 [lb_av] MEDEN T ([facility], ) Body weight 222.00 [lb_av] 222.00 [lb_av] [facility] Body weight 100.699 kg 100.699 kg [facility] ([facility], ) Body mass index (BMI) [Ratio] 36.9 kg/m2 36.9 k g/m2 [facility] ([facility], ) Body surface area Derived from formula 2.07 m2 2.07 m2 [facility] ([facility], ) Systolic blood pressure 132 mm[Hg] 132 mm[Hg] [facility], [facility] Diastolic blood pressure 78 mm[Hg] 78 mm[Hg] [facility] ([facility], ) Heart rate 60 /min 60 /min [facility] ([facility], ) Oxygen saturation in Arterial blood by Pulse oximetry 98 % 98 % [facility] ([facility]) Body temperature 96.7 [degF] 96.7 [degF] [facility] ([facility], ) Body height 65 [in_i] 65 [in_i] [facility] ([facility]) 5'5" Body mass index (BMI) [Ratio] 36.94 kg/m2 36.94 kg/m2 [facility] Diastolic blood pressure 90 mm[Hg] 90 mm[Hg] [facility] Heart rate 75 /min 75 /min [facility] Body height 165.1 cm 165.1 cm [facility] Body weight 100.699 kg 100.699 kg [facility] Systolic blood pressure 136 mm[Hg] 136 mm[Hg] [facility] Oxygen saturation in Arterial blood by Pulse oximetry 94 % 94 % [facility] Body weight 221 [lb_av] 221 [lb_av] eCW1 ([facility]) Body height [in_i] eCW1 ([facility]) Body mass index (BMI) [Ratio] 38.53 kg/m2 38.53 kg/m2 W1 ([facility]) Heart rate 77 /min 77 /min eCW1 ([facility]) Respiratory rate 18 /min 18 /min eCW1 ([facility]) Body temperature 97.7 [degF] 97.7 [degF] eCW1 ( [facility]) Systolic blood pressure 123 mm[Hg] 123 mm[Hg] e CW1 ([facility]) Diastolic blood pressure 79 mm[Hg] 79 mm[Hg] eCW1 ([facility]) Systolic blood pressure 126 mm[Hg] 126 mm[Hg] [facility] Diastolic blood pressure 68 mm[Hg] 68 mm[Hg] [facility] Body weight 100.517 kg 100.517 kg [facility] Body mass index (BMI) [Ratio] 36.88 kg/m2 36.88 kg/m2 [facility] Oxygen saturation in Arterial blood by Pulse oximetry 98 % 98 % [facility] Heart rate 74 /min 74 /min [facility] Body height 165.1 cm 165.1 cm [facility] Body weight 216 [lb_av] 216 [lb_av] eCW1 ([facility]) Body height [in_i] eCW1 ([facility]) Body mass index (BMI) [Ratio] 37.66 kg/m2 37.66 kg/m2 eCW1 ([facility]) Heart rate 66 /min 66 /min eCW1 ([facility]) Respiratory rate 19 /min 19 /min eCW1 ([facility]) Body temperature 97.8 [degF] 97.8 [degF] eCW1 ( [facility]) Systolic blood pressure 143 mm[Hg] 143 mm[Hg] e CW1 ([facility]) Diastolic blood pressure 71 mm[Hg] 71 mm[Hg] eCW1 ([facility]) Body weight 217 [lb_av] 217 [lb_av] eCW1 ([facility]) Respiratory rate 18 /min 18 /min eCW1 ([facility]) Body height [in_i] eCW1 ([facility]) Body mass index (BMI) [Ratio] 37.83 kg/m2 37.83 kg/m2 eCW1 ([facility]) Heart rate 62 /min 62 /min eCW1 ([facility]) Body temperature 98 [degF] 98 [degF] eCW1 ([facility]) Systolic blood pressure 152 mm[Hg] 152 mm[Hg] e CW1 ([facility]) Diastolic blood pressure 84 mm[Hg] 84 mm[Hg] eCW1 ([facility]) Systolic blood pressure 142 mm[Hg] 142 mm[Hg] [facility] Diastolic blood pressure 60 mm[Hg] 60 mm[Hg] [facility] Heart rate 60 /min 60 /min [facility] Body height 165.1 cm 165.1 cm [facility] Body weight 100.245 kg 100.245 kg [facility] Body mass index (BMI) [Ratio] 36.78 kg/m2 36.78 kg/m2 [facility] Oxygen saturation in Arterial blood by Pulse oximetry 98 % 98 % [facility] Body weight 219 [lb_av] 219 [lb_av] eCW1 ([facility]) Body height [in_i] eCW1 ([facility]) Body mass index (BMI) [Ratio] 38.18 kg/m2 38.18 kg/m2 eCW1 ([facility]) Heart rate 60 /min 60 /min eCW1 ([facility]) Respiratory rate 18 /min 18 /min eCW1 ([facility]) Body temperature 98.9 [degF] 98.9 [degF] eCW1 ( [facility]) Systolic blood pressure 136 mm[Hg] 136 mm[Hg] e CW1 ([facility]) Diastolic blood pressure 79 mm[Hg] 79 mm[Hg] eCW1 ([facility]) Body weight 214.00 [lb_av] 214.00 [lb_av] MEDEN T ([facility]) [place] body weight 125 [lb_av] 125 [lb_av] MEDEN T ([facility]) Body weight 97.070 kg 97.070 kg [facility] Body surface area Derived from formula 2.04 m2 2.04 m2 [facility] Body height 65 [in_i] 65 [in_i] MEDENT ([facility]) 5'5" Body mass index (BMI) [Ratio] 35.6 kg/m2 35.6 k g/m2 [facility]) Body weight 218.38 [lb_av] 218.38 [lb_av] MEDEN T ([facility]) Body height 65 [in_i] 65 [in_i] MEDENT ([facility]) 5'5" [place] body weight 125 [lb_av] 125 [lb_av] MEDEN T ([facility]) Body weight 101.606 kg 101.606 kg [facility] ([facility]) Body mass index (BMI) [Ratio] 37.3 kg/m2 37.3 k g/m2 [facility] ([facility]) Body weight 224.00 [lb_av] 224.00 [lb_av] MEDEN T ([facility]) Body weight 221.12 [lb_av] 221.12 [lb_av] eCW1 ([facility]) Body height [in_i] eCW1 ([facility]) Body mass index (BMI) [Ratio] 38.55 kg/m2 38.55 kg/m2 eCW1 ([facility]) Heart rate 54 /min 54 /min eCW1 ([facility]) Respiratory rate 18 /min 18 /min eCW1 ([facility]) Body temperature 98 [degF] 98 [degF] eCW1 ([facility]) Systolic blood pressure 143 mm[Hg] 143 mm[Hg] e CW1 ([facility]) Diastolic blood pressure 86 mm[Hg] 86 mm[Hg] eCW1 ([facility]) Patient Treatment Plan of Care Planned Activity Planned Date Details Description Data Source (s) Metoprolol Tartrate 25 MG Oral Tablet 11/21/2020 12:00:00 AM EDT [facility] Fluconazole 150 MG Oral Tablet [Diflucan] 11/03/2020 12:00:00 AM ED T eCW1 ([facility]) Amoxicillin 875 MG Oral Tablet 11/03/2020 12:00:00 AM EDT eCW1 ([facility]) Fluconazole 150 MG Oral Tablet 11/03/2020 12:00:00 AM EDT [facility] Amoxicillin 875 MG Oral Tablet 11/03/2020 12:00:00 AM EDT [facility] Fluconazole 150 MG Oral Tablet [Diflucan] 11/03/2020 12:00:00 AM ED T eCW1 ([facility]) Amoxicillin 875 MG Oral Tablet 11/03/2020 12:00:00 AM EDT eCW1 ([facility]) Fluconazole 150 MG Oral Tablet [Diflucan] 11/03/2020 12:00:00 AM ED T eCW1 ([facility]) Amoxicillin 875 MG Oral Tablet 11/03/2020 12:00:00 AM EDT eCW1 ([facility]) Potassium Chloride 10 MEQ Extended Release Oral Tablet 06/22/2020 12:00:00 AM EST [facility] rivaroxaban 20 MG Oral Tablet [Xarelto] 06/22/2020 12:00:00 AM EST [facility] tizanidine 2 MG Oral Tablet 06/16/2020 12:00:00 AM EST eCW1 ([facility]) Prednisone 10 MG Oral Tablet 06/16/2020 12:00:00 AM EST eCW1 ([facility]) tizanidine 2 MG Oral Tablet 06/16/2020 12:00:00 AM EST eCW1 ([facility]) Prednisone 10 MG Oral Tablet 06/16/2020 12:00:00 AM EST eCW1 ([facility]) Furosemide 20 MG Oral Tablet 04/21/2020 12:00:00 AM EDT [facility] Metoprolol Tartrate 25 MG Oral Tablet 04/12/2020 12:00:00 AM EDT [facility] rivaroxaban 20 MG Oral Tablet 12/15/2019 12:00:00 AM EDT [facility] Potassium Chloride 10 MEQ Extended Release Oral Tablet 12/15/2019 12:00:00 AM EDT [facility] Polyethylene Glycol 400 4 MG/ML / Propylene glycol 3 M G/ML Ophthalmic Solution 11/26/2016 12:00:00 AM EDT [facility] Ascorbic Acid 226 MG / Beta Carotene 143 20 UNT / cuprous oxide 0.8 MG / dl-alpha tocopheryl acetate 200 UNT / Zinc Oxide 34.8 MG Oral Capsule [PreserVision] 04/12/2015 12:00:00 AM EDT [facility] tizanidine 2 MG Oral Tablet [facility]
[2021-05-08] MEDS: POTASSIUM CHLORIDE 10MEQ SR TABLET PO SCH (17:57)
--- NOTE | 2021-05-08 18:02 | HPEPDOC ---
General Date of Admission 05/08/21 Date of Service: May 08, 2021 Chief Complaint The patient is a 80-year-old female admitted with a reason for visit of Short Of Breath. Source: Patient History of Present Illness Patient is 80 years old female with past medical history of right thyroidectomy a few weeks ago, patient was found to have papillary thyroid cancer, neck surgery planned in May, asthma, GERD, right leg DVT, atrial fibrillation, diastolic CHF presented to hospital with increased shortness of breath. Patient stated with for past few days she has been having increased shortness of breath on exertion. She denied fever, chills cough or increased sputum production. In ER patient was found to have Pulmonary emboli cannot be ruled out described above.Left axillary adenopathy as described above etiology uncertain.Evidence of bilateral subsegmental atelectatic changes and possible mild interstitial lung disease. BNP 2258, no leukocytosis, EKG shows no any acute ischemic changes Home Medications Scheduled Cholecalciferol (Vitamin D3) (Vitamin D3) 1,000 Unit Tablet, 1,000 UNITS PO DAILY, (Reported) Cyanocobalamin (Vitamin B-12) (Vitamin B-12) 500 Mcg Tablet, 500 MCG PO DAILY, (Reported) Furosemide (Furosemide) 20 Mg Tablet, 20 MG PO DAILY, (Reported) Lisinopril (Lisinopril) 10 Mg Tablet, 10 MG PO DAILY, (Reported) ON HOLD UNTIL SHE HEARS FROM Metoprolol Tartrate (Metoprolol Tartrate) 25 Mg Tablet, 25 MG PO BID, (Reported) Omeprazole (Omeprazole) 40 Mg Capsule.dr, 40 MG PO DAILY, (Reported) Potassium Chloride (K-Tab ER) 10 Meq Tablet.er, 10 MEQ PO DAILY, (Reported) Rivaroxaban (Xarelto) 20 Mg Tablet, 20 MG PO DAILY, (Reported) Scheduled PRN Acetaminophen (Tylenol Arthritis) 650 Mg Tablet.er, 1,300 MG PO DAILY PRN for PAIN, (Reported) Carboxymethylcellulos/Glycerin (Refresh Optive Eye Drops) 15 Ml Drops, 1 DROP OU DAILY PRN for DRY EYES, (Reported) Allergies Coded Allergies: ENVIRONMENTAL (Verified Allergy, Unknown, 04/06/21) meloxicam (Verified Allergy, Unknown, 05/08/21) tongue swelling? Past Medical History Medical History ASTHMA IBS GERD OSTEO ARTHRITIS COLONOSCOPY 04-01-2012, 04/2015 , 01/2019, DR. HUANG MACULAR DEGENERATION, RIGHT EYE (DR. 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 ROBERTS CHF Surgical History RIGHT KNEE SURGERY MENISCUS, LEFT KNEE SURGERY, MENISCUS HYSTERECTOMY LAP ABD SURGERY LEFT CATARACT 04/27 TEETH EXTRACTION 04/27 LASER TX TO LEFT EYE TO REMOVE MEMBRANE 01/2015 COLONOSCOPY,ENDOSCOPY 01/28/19 [facility]ER [facility] 05/31/2020 Family History I personally reviewed family history and found not present Social History * Smoker: Denies Alcohol: Denies Drugs: denies A-FIB/CHADSVASC A-FIB History Current/History of A-Fib/PAF?: Yes Current PO Anticoag Therapy: Yes Review of Systems Constitutional: Reports: Weakness; Denies: Chills, Fever Eyes: Denies: Pain ENT: Denies: Head Aches Skin: Denies: Rash, Lesions Pulmonary: Reports: Dyspnea Cardiovascular: Denies: Chest Pain, Palpitations Gastrointestinal: Denies: Nausea Genitourinary: Denies: Dysuria Hematologic: Denies: Bruising Endocrine: Denies: Polydipsia Musculoskeletal: Denies: Neck Pain Neurological: Denies: Weakness Psych: Reports: Mood Normal Physical Examination General Exam: Positive: Alert Eye Exam: Positive: PERRLA Neck Exam: Positive: JVD Chest Exam: Positive: Diminished Heart Exam: Positive: Rate Normal, Irregular Rhythm Telemetry: Positive: Atrial fibrillation Abdomen Exam: Positive: Normal bowel sounds Extremity Exam: Negative: Clubbing Skin Exam: Positive: Nl turgor and temperature Neuro Exam: Positive: Cranial Nerves 3-12 NL Psych Exam: Positive: Mental status NL Vital Signs Vital Signs Date Time Temp Pulse Resp B/P (MAP) Pulse Ox O2 Delivery O2 Flow Rate FiO2 05/08/21 17:02 84 16 99 Room Air 05/08/21 17:00 137/76 (96) 05/08/21 13:06 98.1 Laboratory Data Labs 24H Laboratory Tests 2 05/08/21 13:37: Immature Granulocyte % (Auto) 0.2, Neutrophils (%) (Auto) 55.4, Lymphocytes (%) (Auto) 31.4, Monocytes (%) (Auto) 9.3H, Eosinophils (%) (Auto) 2.0, Basophils (%) (Auto) 1.7H, Neutrophils # (Auto) 3.6, Lymphocytes # (Auto) 2.0, Monocytes # (Auto) 0.6, Eosinophils # (Auto) 0.1, Basophils # (Auto) 0.1, Nucleated Red Blood Cells % (auto) 0.0, Prothrombin Time 21.4H, Prothromb Time International Ratio 1.81, Activated Partial Thromboplast Time 36.5, Anion Gap 5L, Glomerular Filtration Rate > 60.0, Calcium Level 9.2, Total Bilirubin 0.3, Direct Bilirubin < 0.1, Aspartate Amino Transf (AST/SGOT) 14, Alanine Aminotransferase (ALT/SGPT) 18, Alkaline Phosphatase 70, Total Creatine Kinase 51, Creatine Kinase MB < 1.0, Creatine Kinase MB Relative Index 1.96, Troponin I < 0.02, [place]-Nnq-V-Type Natriuretic Peptide 2258H, Total Protein 6.5, Albumin 3.4, Albumin/Globulin Ratio 1.1L, Lipase 148, Thyroid Stimulating Hormone (TSH) 2.610, Free Thyroxine 0.75L CBC/BMP Laboratory Tests 05/08/21 13:37 Microbiology Microbiology 05/08/21 Respiratory Virus Panel (PCR) (FREDI), Received Pending Assessment/Plan Patient is 80 years old female with past medical history of right thyroidectomy a few weeks ago, patient was found to have papillary thyroid cancer, neck surgery planned in May, asthma, GERD, right leg DVT, atrial fibrillation, diastolic CHF presented to hospital with increased shortness of breath. Patient stated with for past few days she has been having increased shortness of breath on exertion. She denied fever, chills cough or increased sputum production. In ER patient was found to have Pulmonary emboli cannot be ruled out described above.Left axillary adenopathy as described above etiology uncertain.Evidence of bilateral subsegmental atelectatic changes and possible mild interstitial lung disease. BNP 2258, no leukocytosis, EKG shows no any acute ischemic changes Problems (1) CHF (congestive heart failure) Status: Chronic Problem Text: Acute diastolic CHF I's and O's Cardiac diet Lasix IV twice daily Echo (2) Atrial fibrillation Status: Chronic Problem Text: Continue Xarelto p.o. Heart rate under control (3) Papillary thyroid carcinoma Status: Chronic Problem Text: Follow-up with ENT to complete thyroidectomy in the outpatient settings (4) Asthma Status: Chronic Problem Text: Not in acute exacerbation (5) Dyspnea Status: Acute Problem Text: Most likely secondary to acute CHF exacerbation Probability for pulmonary emboli is low, patient does not have tachycardia, normal oxygen saturation on room air. (6) Hypertension Status: Chronic Problem Text: Continue home meds Plan / VTE VTE Prophylaxis Ordered?: Yes JEANNE JARA DO May 08, 2021 18:02
[2021-05-08] MEDS ORDERED: IPRATROPIUM 0.5MG/ALBUTEROL 2.5MG INH SOL UD 3ML (DUONEB) NEB PRN (18:10)
--- NOTE | 2021-05-08 18:28 | ECGEPIP ---
[facility] - ED Test Date: 2021-05-08 Pat Name: BERNY LISA Department: Room: - Gender: Female Interactive Digital Media Specialist: JEROMEGAYE : 1940 Requested By: KELLEN TINOCO Order Number: [id number] Reading MD: Paz Bateman Measurements Intervals [place] Rate: 78 P: MD: QRS: 12 QRSD: 88 T: 47 QT: 378 QTc: 430 Interpretive Statements Atrial fibrillation with frequent ventricular-paced complexes NSTTW abnormalities prior sinus rhythm 04/06/20 Electronically Signed on 05-08-2021 18:28:46 EDT by Paz Bateman
[2021-05-08 20:00] VITALS: BP 140/85
[2021-05-08] MEDS: METOPROLOL TART 25 MG TABLET PO SCH (20:31)
[2021-05-08] MEDS ORDERED: DOCUSATE SODIUM 100MG CAPSULE PO PRN (21:00)
[2021-05-09] MEDS: FUROSEMIDE 40MG/4ML VIAL (J1940) IV SCH ×2 (00:25→08:38)
[2021-05-09 06:00] VITALS: BP 118/67
[2021-05-09 06:56] LABS: HEMATOCRIT 42.4 % (36.0-47.0); HEMOGLOBIN 13.7 g/dl (12.0-15.5); MEAN CORPUSCULAR HEMOGLOBIN 29.7 pg (27.0-33.0); MEAN CORPUSCULAR HGB CONC 32.3 g/dl (32.0-36.5); PLATELET COUNT, AUTOMATED 205 10^3/uL (150-450); RED BLOOD COUNT 4.61 10^6/uL (4.00-5.40); WHITE BLOOD COUNT 6.3 10^3/uL (4.0-10.0)
[2021-05-09 07:19] LABS: ALBUMIN 3.4 GM/DL (3.2-5.2); ALT/SGPT 17 U/L (12-78); AMYLASE 51 U/L (25-115); BILIRUBIN,TOTAL 0.4 MG/DL (0.2-1.0); BLOOD UREA NITROGEN 16 MG/DL (7-18); CALCIUM LEVEL 9.4 MG/DL (8.8-10.2); CARBON DIOXIDE LEVEL 29 MEQ/L (21-32); CHLORIDE LEVEL 109 MEQ/L (98-107); CREATININE FOR GFR 0.84 MG/DL (0.55-1.30); GLOMERULAR FILTRATION RATE > 60.0 (>32); GLUCOSE, FASTING 106 MG/DL (70-100); LIPASE 146 U/L (73-393); MAGNESIUM LEVEL 1.9 MG/DL (1.8-2.4); POTASSIUM SERUM 3.9 MEQ/L (3.5-5.1); SODIUM LEVEL 144 MEQ/L (136-145); TOTAL PROTEIN 6.9 GM/DL (6.4-8.2)
[2021-05-09] MEDS: MIRALAX *UNIT DOSE* 17GM PACKET PO SCH (08:37)
[2021-05-09] MEDS: OMEPRAZOLE 20 MG CAP PO SCH (08:38)
[2021-05-09] MEDS: POTASSIUM CHLORIDE 10MEQ SR TABLET PO SCH (08:38)
[2021-05-09] MEDS: CYANOCOBALAMIN 500 MCG TAB PO SCH (08:39)
[2021-05-09] MEDS: METOPROLOL TART 25 MG TABLET PO SCH ×3 (08:39→23:59)
[2021-05-09] MEDS: VITAMIN D 1,000 INTERNATIONAL UNITS TABLET PO SCH (08:39)
[2021-05-09 14:00] VITALS: BP 107/71
[2021-05-09] MEDS ORDERED: IPRATROPIUM 0.5MG/ALBUTEROL 2.5MG INH SOL UD 3ML (DUONEB) NEB PRN (15:15)
[2021-05-09] MEDS ORDERED: IPRATROPIUM 0.5MG/ALBUTEROL 2.5MG INH SOL UD 3ML (DUONEB) NEB ONE (15:15)
--- NOTE | 2021-05-09 15:31 | REP ---
INDICATION: SOB. COMPARISON: Multiple the latest yesterday at 1:26 p.m. TECHNIQUE: Portable FINDINGS: The technique utilized in obtaining the radiograph has magnified the cardiac silhouette and accentuated the interstitial markings. The cardiomediastinal silhouette is unchanged. There is cardiomegaly accentuated by technique. The dual chamber bipolar pacemaker device is unchanged. Lung carrizales are stable. No acute patchy parenchymal opacities or pleural effusions have developed. There is no change in the osseous structures. IMPRESSION: There is no evidence of acute cardiopulmonary disease or significant change compared to the prior exam with findings as described above. <Electronically signed by Haseeb Scott > 05/09/21 [id number]
--- NOTE | 2021-05-09 16:13 | IPN ---
PROGRESS NOTE DATE: 05/09/2021 SUBJECTIVE: Patient complains of dizziness/lightheadedness this morning. No fever or chills; has a productive cough of white sputum. Net negative balance 1.2 liters today. OBJECTIVE: Vital signs: Temperature 98.6, pulse 82, respiratory rate 18, blood pressure 119/72, 96% on room air. General: Awake, alert, oriented, speaking in full sentences, no use of respiratory accessory muscles. Lungs: Diminished with faint expiratory wheezing. Heart: S1 and S2 sinus rhythm. Abdomen: Soft, nontender, nondistended. Extremities: No cyanosis or clubbing. LABORATORY DATA/IMAGING STUDIES/MICROBIOLOGY: Have been reviewed. ASSESSMENT: This is an 80-year-old female status post right thyroidectomy a few weeks ago with papillary thyroid cancer - neck surgery planned in May, asthma, right lower extremity DVT, chronic afib, diastolic heart failure that presented with shortness of breath, found to have congestive heart failure exacerbation with BNP of 2258. IMPRESSIONS/PLAN: 1. acute diastolic congestive heart failure exacerbation with preserved systolic function: Patient is kept on strict I&Os, a 2 gram sodium diet, fluid restriction, Lasix for net negative balance daily. may need midodrine to increase systolic pressure to allow for further diuresis. 2. Chronic afib: On Xarelto heart rate is controlled. 3. Papillary thyroid carcinoma: ENT follow up as outpatient for complete thyroidectomy. 4. Asthma: Not in exacerbation. 5. Hypertension: Stable on home medications. MTDD
[2021-05-09 16:20] LABS: NT-PRO BNP 2479 PG/ML (<450)
[2021-05-09 17:36] VITALS: BP 130/91
[2021-05-09] MEDS: RIVAROXABAN 20 MG TAB (XARELTO) PO SCH (18:03)
[2021-05-09] MEDS: MIDODRINE 5 MG TAB PO SCH (18:04)
[2021-05-09] MEDS: IPRATROPIUM 0.5MG/ALBUTEROL 2.5MG INH SOL UD 3ML (DUONEB) NEB SCH (20:02)
[2021-05-09 22:00] VITALS: BP_SYST 112; BP_DIAS 66; BP_DIAS 67
[2021-05-09] MEDS ORDERED: GLYCERIN ADULT SUPP PR PRN (22:35)
[2021-05-10] VITALS (8 sets, daily range): BP systolic 82–138; BP diastolic 60–80
[2021-05-10] MEDS: IPRATROPIUM 0.5MG/ALBUTEROL 2.5MG INH SOL UD 3ML (DUONEB) NEB SCH ×6 (00:18→19:35)
[2021-05-10] MEDS: METOPROLOL TART 25 MG TABLET PO SCH ×2 (06:00→17:42)
[2021-05-10 06:12] LABS: BASO # 0.1 10^3/uL (0.0-0.2); BASO % 1.5 % (0.0-1.0); EOS # 0.1 10^3/uL (0.0-0.5); EOS % 1.7 % (0.0-3.0); HEMATOCRIT 41.7 % (36.0-47.0); HEMOGLOBIN 13.3 g/dl (12.0-15.5); LYMPH # 2.6 10^3/uL (1.5-5.0); LYMPH % 40.6 % (24.0-44.0); MEAN CORPUSCULAR HEMOGLOBIN 29.5 pg (27.0-33.0); MEAN CORPUSCULAR HGB CONC 31.9 g/dl (32.0-36.5); MEAN CORPUSCULAR VOLUME 92.5 fl (80.0-96.0); MONO # 0.5 10^3/uL (0.0-0.8); MONO % 7.7 % (2.0-8.0); NEUTROPHILS # 3.1 10^3/uL (1.5-8.5); NEUTROPHILS % 48.3 % (36.0-66.0); PLATELET COUNT, AUTOMATED 193 10^3/uL (150-450); RED BLOOD COUNT 4.51 10^6/uL (4.00-5.40); WHITE BLOOD COUNT 6.5 10^3/uL (4.0-10.0)
[2021-05-10 06:35] LABS: CALCIUM LEVEL 9.3 MG/DL (8.8-10.2); CREATININE FOR GFR 0.99 MG/DL (0.55-1.30); GLOMERULAR FILTRATION RATE 57.2 (>32); POTASSIUM SERUM 3.6 MEQ/L (3.5-5.1)
[2021-05-10] MEDS ORDERED: SENOKOT S TAB PO ONE (09:00)
[2021-05-10] MEDS ORDERED: MOM 30ML SUSPENSION UDC PO ONE (09:00)
[2021-05-10] MEDS ORDERED: DIGOXIN 0.125 MG TAB PO STA (09:17)
[2021-05-10] MEDS: MIRALAX *UNIT DOSE* 17GM PACKET PO SCH (09:24)
[2021-05-10] MEDS: MIDODRINE 5 MG TAB PO SCH ×3 (09:25→16:13)
[2021-05-10] MEDS: CYANOCOBALAMIN 500 MCG TAB PO SCH (09:25)
[2021-05-10] MEDS: OMEPRAZOLE 20 MG CAP PO SCH (09:25)
[2021-05-10] MEDS: POTASSIUM CHLORIDE 10MEQ SR TABLET PO SCH (09:25)
[2021-05-10] MEDS: VITAMIN D 1,000 INTERNATIONAL UNITS TABLET PO SCH (09:25)
[2021-05-10] MEDS ORDERED: AMIODARONE HCL 150 MG in IV 1 EA IV STA ×2 (09:56→11:30)
[2021-05-10] MEDS ORDERED: NS 250 ML IV PRN (10:10)
[2021-05-10] MEDS ORDERED: SODIUM CHLORIDE 0.9% 1000ML IV ONE (10:15)
[2021-05-10] MEDS ORDERED: AMIODARONE HCL 360 MG in IV 1 EA IV SCH ×2 (12:30→18:30)
--- NOTE | 2021-05-10 13:44 | IPN ---
PROGRESS NOTE DATE: 05/10/2021 SUBJECTIVE: This morning patient was found to have afib with RVR, ventricular rate of 145, transferred to PCU. She denies any chest pain, but complains of shortness of breath when she ambulated with physical therapy. Patient was given metoprolol with decrease in blood pressure to 88/60. She had been given normal saline 250 I.V. bolus. OBJECTIVE: Vital signs: Temperature 96.6, pulse 145, respiratory rate 16, blood pressure 115/76, 96% on room air. General: Awake, alert, oriented, in no distress, no use of respiratory accessory muscles. HEENT: Moist mucous membranes. Neck: No JVD, no thyromegaly. Lungs: Clear to auscultation, no wheezing or rales. Heart: S1 and S2 irregularly irregular, tachycardic. Abdomen: Soft, nontender, nondistended, positive bowel sounds. Extremities: No edema. LABORATORY DATA/IMAGING STUDIES/MICROBIOLOGY: Have been reviewed. Please see the chart. ASSESSMENT: 80-year-old female admitted on 05/08/2021 with complaints of shortness of breath. Initially treated for acute diastolic CHF exacerbation on strict I&Os, daily weights and Lasix with repeat chest x-ray being negative. Patient has chronic afib, but went into afib with RVR, ventricular rate of 140. Transferred to PCU for I.V. amiodarone due to low blood pressure of 88/60. IMPRESSIONS/PLAN: 1. Acute diastolic congestive heart failure exacerbation: Resolved status post Lasix. 2. Chronic atrial fibrillation with rapid ventricular rate due to low blood pressure of 88 mmHg: Patient was emergently transferred to PCU after receiving digoxin and started on an amiodarone drip for faster pharmacologic cardioversion. 3. History of papillary thyroid carcinoma: ENT follow up as outpatient for complete thyroidectomy. 4. Asthma: Not in acute exacerbation. 5. Hypertension: Currently with low blood pressure. Blood pressure medications have been held. Check thyroid function tests at baseline.
--- NOTE | 2021-05-10 15:51 | ECHO ---
ECHOCARDIOGRAM DATE OF PROCEDURE: 05/09/2021 Age: 87 Height: 165 cm Weight: 88 kg Patient location: Room 4213 REFERRING PHYSICIAN: Dr. Khadar Hernandez INDICATION: Heart failure, unspecified. 2D MEASUREMENTS: IVS 1.7 cm LV 3.9 cm LVPW 1.5 cm LA 2.5 cm Aortic root 3.7 cm Ascending aorta 3.8 cm DOPPLER MEASUREMENTS: Peak velocity across the aortic valve 1.2 m/s Peak velocity cross the LVOT 0.6 m/s Mitral E 0.63 Maximum tricuspid valve velocity was 2.1 m/s 2D COMMENTS: 1. Normal left ventricular size with moderately increased left ventricular wall thickness and a normal global left ventricular systolic function. The estimated left ventricular systolic ejection fraction is 60%-65%. 2. The left atrium appeared to be normal in size. Normal right atrium and left ventricle. 3. The atrial septum appeared to be normal without evidence of defect or shunt. 4. Moderately enlarged aortic root. Mildly dilated ascending aorta at 3.8 cm. 5. trace pericardial effusion noted. No evidence of cardiac tamponade. 6. Mildly calcified aortic valve with normal leaflet excursion. Mildly calcified mitral annulus with normal anterior mitral valve leaflet motion. Normal tricuspid valve and pulmonic valve. The proximal pulmonary artery branches were not well visualized. 7. The inferior vena cava was not visualized. 8. Pacemaker wire artifacts noted in the right heart chambers. DOPPLER: It detects mild aortic regurgitation, trace mitral regurgitation, trace tricuspid regurgitation. The calculated pulmonary artery systolic pressure was normal. Assessment of the left ventricular diastolic function was limited. IMPRESSION: 1. Normal global left ventricular systolic function with moderate concentric left ventricular hypertrophy. Assessment of the left ventricular diastolic function was nondiagnostic. 2. Aortic valve sclerosis with mild aortic regurgitation but no aortic stenosis. 3. Mitral annulus calcification with trace mitral regurgitation. 4. Trace tricuspid regurgitation with a normal calculated pulmonary artery systolic pressure. 5. Trace pericardial effusion. 6. Borderline enlarged aortic root at 3.7 cm. Mildly dilated ascending aorta at 3.8 cm. 7. Pacemaker wire artifacts noted in the right heart chambers. [facility]
[2021-05-10] MEDS: DIGOXIN 0.125 MG TAB PO SCH ×2 (16:13→21:28)
[2021-05-10] MEDS: RIVAROXABAN 20 MG TAB (XARELTO) PO SCH (17:41)
[2021-05-11] VITALS: BP 130/68
[2021-05-11] MEDS: IPRATROPIUM 0.5MG/ALBUTEROL 2.5MG INH SOL UD 3ML (DUONEB) NEB SCH ×3 (00:21→08:48)
[2021-05-11] MEDS: METOPROLOL TART 25 MG TABLET PO SCH ×3 (00:41→12:54)
[2021-05-11 04:00] VITALS: BP 130/68
[2021-05-11 05:32] VITALS: BP 130/68
[2021-05-11 05:51] LABS: BASO # 0.1 10^3/uL (0.0-0.2); BASO % 1.4 % (0.0-1.0); EOS # 0.2 10^3/uL (0.0-0.5); EOS % 2.7 % (0.0-3.0); HEMATOCRIT 41.2 % (36.0-47.0); HEMOGLOBIN 13.1 g/dl (12.0-15.5); LYMPH # 2.5 10^3/uL (1.5-5.0); LYMPH % 39.6 % (24.0-44.0); MEAN CORPUSCULAR HEMOGLOBIN 29.9 pg (27.0-33.0); MEAN CORPUSCULAR HGB CONC 31.8 g/dl (32.0-36.5); MEAN CORPUSCULAR VOLUME 94.1 fl (80.0-96.0); MONO # 0.5 10^3/uL (0.0-0.8); NEUTROPHILS % 48.1 % (36.0-66.0); PLATELET COUNT, AUTOMATED 183 10^3/uL (150-450); RED BLOOD COUNT 4.38 10^6/uL (4.00-5.40); WHITE BLOOD COUNT 6.3 10^3/uL (4.0-10.0)
[2021-05-11 06:33] LABS: BLOOD UREA NITROGEN 19 MG/DL (7-18); CALCIUM LEVEL 9.1 MG/DL (8.8-10.2); CARBON DIOXIDE LEVEL 29 MEQ/L (21-32); CHLORIDE LEVEL 109 MEQ/L (98-107); CREATININE FOR GFR 0.76 MG/DL (0.55-1.30); DIGOXIN LEVEL 0.7 NG/ML (0.5-2.0); GLOMERULAR FILTRATION RATE > 60.0 (>32); GLUCOSE, FASTING 90 MG/DL (70-100); MAGNESIUM LEVEL 2.1 MG/DL (1.8-2.4); POTASSIUM SERUM 4.1 MEQ/L (3.5-5.1); SODIUM LEVEL 144 MEQ/L (136-145)
[2021-05-11 08:00] VITALS: BP 116/68
[2021-05-11] MEDS: MIRALAX *UNIT DOSE* 17GM PACKET PO SCH (08:58)
[2021-05-11] MEDS: VITAMIN D 1,000 INTERNATIONAL UNITS TABLET PO SCH (08:58)
[2021-05-11] MEDS: POTASSIUM CHLORIDE 10MEQ SR TABLET PO SCH (08:58)
[2021-05-11] MEDS: MIDODRINE 5 MG TAB PO SCH ×2 (08:59→12:54)
[2021-05-11] MEDS: OMEPRAZOLE 20 MG CAP PO SCH (08:59)
[2021-05-11] MEDS: CYANOCOBALAMIN 500 MCG TAB PO SCH (08:59)
[2021-05-11] MEDS ORDERED: DIGO0.123 PO (12:08)
[2021-05-11] MEDS ORDERED: MIDO5TA PO (12:11)
[2021-05-11] MEDS ORDERED: METO1TAB87 PO (12:11)
[2021-05-11] MEDS ORDERED: SELF1KIT MC (12:12)
[2021-05-11 12:52] VITALS: BP 130/70
[2021-05-11 14:00] VITALS: BP 138/64
--- NOTE | 2021-05-11 14:23 | DS.PDOC ---
Discharge Summary General Date of Admission May 08, 2021 at 17:24 Date of Discharge 05/11/21 Discharge Summary DISCHARGE SUMMARY DICTATED JOB#[id number] Vital Signs/I&Os Vital Signs Date Time Temp Pulse Resp B/P (MAP) Pulse Ox O2 Delivery O2 Flow Rate FiO2 05/11/21 14:00 96.7 82 18 138/64 (88) 96 Room Air I&O- Last 24 Hours up to 6 AM 05/11/21 06:00 Intake Total 500 ml Output Total 80 ml Balance 420 ml Laboratory Data Labs 24H Laboratory Tests 2 05/11/21 05:06: Immature Granulocyte % (Auto) 0.2, Neutrophils (%) (Auto) 48.1, Lymphocytes (%) (Auto) 39.6, Monocytes (%) (Auto) 8.0, Eosinophils (%) (Auto) 2.7, Basophils (%) (Auto) 1.4H, Neutrophils # (Auto) 3.0, Lymphocytes # (Auto) 2.5, Monocytes # (Auto) 0.5, Eosinophils # (Auto) 0.2, Basophils # (Auto) 0.1, Nucleated Red Blood Cells % (auto) 0.0, Anion Gap 6L, Glomerular Filtration Rate > 60.0, Calcium Level 9.1, Magnesium Level 2.1, Digoxin Level 0.7 CBC/BMP Laboratory Tests 05/11/21 05:06 Microbiology Microbiology 05/08/21 Respiratory Virus Panel (PCR) (FREDI) - Final, Complete Discharge Medications Scheduled Cholecalciferol (Vitamin D3) (Vitamin D3) 1,000 Unit Tablet, 1,000 UNITS PO DAILY, (Reported) Cyanocobalamin (Vitamin B-12) (Vitamin B-12) 500 Mcg Tablet, 500 MCG PO DAILY, (Reported) Digoxin (Digoxin) 125 Mcg Tablet, 125 TAB PO DAILY Furosemide (Furosemide) 20 Mg Tablet, 20 MG PO DAILY, (Reported) Metoprolol Tartrate (Metoprolol Tartrate) 25 Mg Tablet, 25 MG PO Q8H Midodrine HCl (Midodrine HCl) 5 Mg Tablet, 5 MG PO TID Omeprazole (Omeprazole) 40 Mg Capsule.dr, 40 MG PO DAILY, (Reported) Potassium Chloride (K-Tab ER) 10 Meq Tablet.er, 10 MEQ PO DAILY, (Reported) Rivaroxaban (Xarelto) 20 Mg Tablet, 20 MG PO DAILY, (Reported) Scheduled PRN Acetaminophen (Tylenol Arthritis) 650 Mg Tablet.er, 1,300 MG PO DAILY PRN for PAIN, (Reported) Carboxymethylcellulos/Glycerin (Refresh Optive Eye Drops) 15 Ml Drops, 1 DROP OU DAILY PRN for DRY EYES, (Reported) Allergies Coded Allergies: ENVIRONMENTAL (Verified Allergy, Unknown, 04/06/21) meloxicam (Verified Allergy, Unknown, 05/08/21) tongue swelling? JÚNIOR MEAD MD May 11, 2021 14:23
--- NOTE | 2021-05-12 09:41 | DSES ---
DISCHARGE SUMMARY DATE OF ADMISSION: 05/08/2021 DATE OF DISCHARGE: 05/11/2021 PRIMARY DISCHARGE DIAGNOSES: 1. Acute on chronic congestive heart failure, diastolic dysfunction and preserved systolic function, ejection fraction of 60-65%. 2. Chronic atrial fibrillation with rapid ventricular response, 130-150, complicated by hypotension requiring intravenous (IV) fluids and midodrine. 3. Recent diagnosis of papillary carcinoma with plans for a complete thyroidectomy May 31, 2021. 4. Asthma, not in exacerbation. 5. Hypertension with episodes of low blood pressure in the emergency department. DISCHARGE MEDICATIONS: - midodrine 5 mg three times a day to be held for systolic pressure greater than 110 mmHg - metoprolol 25 mg every 8 hours, to be held for heart rate less than 60 or systolic pressure less than 100 - digoxin 125 mcg daily, to be held for heart rate less than 60 - acetaminophen 1.3 grams as needed for pain - Refresh eye drops each eye daily - vitamin D 1000 units daily - vitamin B12 500 mcg daily - Lasix 20 mg daily - omeprazole 40 mg daily - potassium 10 mEq daily - Xarelto 20 mg daily DISCHARGE INSTRUCTIONS: Immediate followup with Dr. Roberson, cut plug packer, within five days of discharge for medical optimization for upcoming complete thyroidectomy May 31, 2021. Patient had a congestive heart failure exacerbation and congestive heart failure with atrial fibrillation with rapid ventricular response. Medications are to be titrated as needed prior to surgery. Primary care physician appointment within one week of discharge and ENT, as previously scheduled, May 31, 2021. HOSPITAL COURSE: This is an 80-year-old female admitted on 05/08/2021 with complaints of shortness of breath without fevers, chills or cough, coronavirus negative, with brain natriuretic peptide (BNP) at 2258 and chest x-ray showing possible interstitial lung disease. EKG showed no acute ischemic changes. Patient was admitted for acute decompensated on chronic diastolic congestive heart failure exacerbation, was started on Lasix. She was kept on strict intake and output (I's and O's), daily weights and fluid restriction. Admission weight was 97.27 kg and discharge weight of 94.9 kg. Repeat chest x-ray was negative for acute infiltrate. No evidence of acute cardiopulmonary process. Patient had a CT of the neck, which shows status post right thyroidectomy with residual left thyroid tissue and a 2.5 cm nodule with an interior thyroid present. CTA showed no pulmonary embolism, left axillary adenopathy of unknown significance, bilateral atelectasis and possible interstitial lung disease. Patient developed atrial fibrillation with rapid ventricular response with ventricular rate of 130 to 152 with hypotension, systolic pressure of 85. Patient was given IV amiodarone 150 mg IV times one, digoxin 0.125 mg times two doses with digoxin level 0.7 on discharge. Patient had to be given 250 mg times two normal saline boluses with subsequent improvement of blood pressure to 138/80. IV fluids were then discontinued, Due to history of thyroid carcinoma, patient's amiodarone was stopped and she was kept on metoprolol 25 mg every 6 hours, was given three doses with digoxin 0.125 mg with subsequent rate control, ventricular rate of 75. Due to severe hypotension, patient was given midodrine 10 mg three times a day with improvement in blood pressure to 116 systolic to 130 systolic at the bedside. Patient had no complaints of shortness of breath with clear lungs and chest x-ray showing no acute cardiopulmonary process. Patient had no other issues during this admission. She is discharged in stable condition. PHYSICAL EXAMINATION ON DISCHARGE: VITAL SIGNS: Temperature 97, pulse 69, irregularly irregular, atrial fibrillation, respiratory rate 18, blood pressure 116/68, 98% on room air. GENERAL: Awake, alert, oriented times three, answering questions appropriately, in no distress. No conversational dyspnea. HEENT: No pallor, icterus or jaundice. No jugular venous distention, thyromegaly or cervical lymphadenopathy. Patient has a well healed scar on the neck from prior thyroidectomy. LUNGS: Diminished, but clear to auscultation. No wheezing, rales or rhonchi. HEART: S1, S2. Irregularly irregular. ABDOMEN: Soft, nontender, nondistended. Positive bowel sounds. EXTREMITIES: Trace edema bilateral lower extremities. LABORATORY DATA/IMAGING STUDIES/MICROBIOLOGY: Please see the chart. TIME SPENT ON DISCHARGE: 30 minutes.
== END 2021-05-11 15:51 | disposition home health service (06) | DRG 291 ==
LOC: M ED 12:48 → M ED INP 17:24 → M MSPAV 20:15 → M PCU 05-10 11:21
PROVIDERS: ADMIT Internal Medicine; ATTEND General Practice
DX: I11.0 Hypertensive heart disease with heart failure (principal); I50.33 Acute on chronic diastolic (congestive) heart failure; I48.20 Chronic atrial fibrillation, unspecified; C73 Malignant neoplasm of thyroid gland; J45.909 Unspecified asthma, uncomplicated; Z79.899 Other long term (current) drug therapy; K21.9 Gastro-esophageal reflux disease without esophagitis; Z88.8 Allergy status to other drugs, medicaments and biological substances; M19.90 Unspecified osteoarthritis, unspecified site; H35.30 Unspecified macular degeneration; Z95.0 Presence of cardiac pacemaker

== ENCOUNTER → 2021-05-24 | Outpatient (REF) | payer MEDICARE ==
[~2021-05-24] MED LIST changes: +DIGO0.123 PO; +METO1TAB87 PO; +MIDO5TA PO
[2021-05-24 16:37] LABS: HEMATOCRIT 37.5 % (36.0-47.0); HEMOGLOBIN 12.1 g/dl (12.0-15.5); MEAN CORPUSCULAR HEMOGLOBIN 30.4 pg (27.0-33.0); MEAN CORPUSCULAR HGB CONC 32.3 g/dl (32.0-36.5); MEAN CORPUSCULAR VOLUME 94.2 fl (80.0-96.0); PLATELET COUNT, AUTOMATED 170 10^3/uL (150-450); RED BLOOD COUNT 3.98 10^6/uL (4.00-5.40); WHITE BLOOD COUNT 5.9 10^3/uL (4.0-10.0)
[2021-05-24 17:26] LABS: ALBUMIN 3.3 GM/DL (3.2-5.2); ALT/SGPT 24 U/L (12-78); BILIRUBIN,TOTAL 0.3 MG/DL (0.2-1.0); BLOOD UREA NITROGEN 12 MG/DL (7-18); CARBON DIOXIDE LEVEL 27 MEQ/L (21-32); CHLORIDE LEVEL 111 MEQ/L (98-107); CREATININE FOR GFR 0.92 MG/DL (0.55-1.30); DIGOXIN LEVEL 1.3 NG/ML (0.5-2.0); FREE T4 0.77 NG/DL (0.76-1.46); GLOMERULAR FILTRATION RATE > 60.0 (>32); GLUCOSE, FASTING 134 MG/DL (70-100); POTASSIUM SERUM 3.7 MEQ/L (3.5-5.1); SODIUM LEVEL 144 MEQ/L (136-145); TOTAL PROTEIN 6.5 GM/DL (6.4-8.2)
== END ==
LOC: M SFHCCLAY 11:00
PROVIDERS: ATTEND Family Medicine
DX: I48.0 Paroxysmal atrial fibrillation (principal); I49.5 Sick sinus syndrome

== ENCOUNTER → 2021-05-26 | Outpatient (CLI) | payer MEDICARE ==
[~2021-05-26] MED LIST changes: +POTA10CA32 PO
== END ==
LOC: M LABSMTC 11:58
PROVIDERS: ATTEND Anesthesiology
DX: Z01.812 Encounter for preprocedural laboratory examination (principal); Z20.822 Contact with and (suspected) exposure to COVID-19

== ENCOUNTER 2021-05-31 08:50 | Observation (INO) | payer MEDICARE ==
[2021-05-31] VITALS (8 sets, daily range): BP systolic 139–176; BP diastolic 57–96; O2SAT 94
[~2021-05-31] VITALS: Ht 167.6 cm; Wt 97.5 kg
[~2021-05-31 08:50] MED LIST changes: +LR 1,000 ML IV ONE; +dexameTHASONE 4 MG/ML 1ML VIAL (J1100 PER 1MG) IV ONE
--- OUTSIDE RECORDS SUMMARY | 2021-05-31 08:56 | CCD | Continuity of Care Document ---
Author Author Berny NICK MD Organization Unknown Address [address] [address] Phone [phone] Care Team Providers Care Compliance Spec Name Role Phone AUTM Unavailable Karen So AUTM AUTM Unavailable Pro Roberson M.D. AUTM [phone] Sdio AUTM [phone] Problems Active Problems Provider Date Essential hypertension [...] lb BMI (Body Mass Index) 34.6 kg/m2 Trent Body Weight 125 lb Weight 94.349 kg BSA (Body Surface Area) 2.01 m2 01/30/2021 9:29am Height 65 inches 5'5" Weight 215.00 lb BMI (Body Mass Index) 35.8 kg/m2 Trent Body Weight 125 lb Weight 97.524 kg BSA (Body Surface Area) 2.04 m2 Results Test Acquired Date Facility Test Result H/L Range Note Surgical Pathology Consult 04/26/2021 [facility] Surgical Pathology Consult Surgical Patholo <SEE NOTE> 1 Laboratory test finding 01/09/2021 [facility] Main Lab [address] [place] [address] [phone] Non Lactation Consultant/Cytology Req For Servi (SEE NOTE) 2 Laboratory test finding 01/09/2021 [facility] [address] [place] [phone] Non Lactation Consultant/Cytology Req For Servi (SEE NOTE) 3 Laboratory test finding 01/09/2021 [facility] [address] [place] [address] [phone] Non Lactation Consultant/Cytology Req For Servi (SEE NOTE) 4 FT4&TSH Panel 12/30/2020 [facility] Main [facility] [address] [place] [phone] Thyroid Stimulating Hormone 0.295 uIU/ML Low 0. 358-3.740 Free T4 0.79 ng/dL Normal 0.76-1.46 Laboratory test finding 12/30/2020 [facility] Lab [address] [place] [address] [phone] Free T3 3.1 pg/mL Normal 2.2-4.0 Ionized Calcium 4.8 mg/dL Normal 4.5-5.3 Thyroglob QNT Incl Thyrogl Julianne 12/30/2020 [facility] Main Lab [address] [place], [place] [phone] Thyroglobulin Quantitative 1417.7 ng/mL High 1.5 -38.5 5 Thryoglobulin Antibodies (Rios) < 1.0 IU/mL Normal 0.0-0.9 6 Laboratory test finding 12/30/2020 [facility] Lab [address] [place], [place] [phone] PTH Intact 70.0 pg/mL Normal 18.5-88.0 1 Surgical Pathology Report Name: BERNY LISA Collection Date: 04/26/2021 00:00 Received Date: 04/26/2021 14:20 Physician(s): LEONEL NICK MD ADJAPONG, OPOKU, MD Specimen(s) Received A: Material received for consultation, [facility], [id number], [facility] Clinical History 80-year-old woman with thyroid goiter an d left false vocal cord lesion. Diagnostic consultation. Diagnosis LARYNX, LEFT FALSE VOCAL CORD, BIOPSY ([id number], 04/20/21): SEVERE SQUAMOUS DYSPLASIA. (SEE MICROSCOPIC DESCRIPTION). 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 [...] Adenomatoid nodule(s) or nodular follicular disease [facility] August 2019 Annual Release Electronically Signed By Rios Riley M.D., Attending Pathologist 04/27/2021 15:29:28 Gross Description Received from [facility] in [place], [place] are 7 H and E stained slides and 6 paraffin blocks, labeled [id number] (A, B1, B2, B3, B4, B5), with [...] developed and their performance characteristics determined by [facility] Pathology department. They have not been [...] in a backgound of scattered lymphocytes. COMMENTS: 01/10/2021946 Signed BRADLEY CRISTINA(ASCP) 01/10/2021 0948 (Prelim) Signed [...] by Dashawn Mac Immunometric Assay Performed at: - [facility] [address] [id number] Admitting Representative: Ariana Hutchison MD, Phone: [phone] Thyroglobulin Antibody measu red by Dashawn Mac Methodology Procedures Date Code Description Status 04/20/2021 59940 Thyroid Lobectomy Total Unilater al Completed 04/20/2021 23488 Laryngoscopy Direct Biopsy W/Ope rating Microscope Completed 01/30/2021 02690 Office/Outpatient Established Mo d MDM 30-39 Min Completed 01/30/2021 38624 Laryngoscopy Flexible Fiberoptic Diagnostic Completed 12/23/2020 06200 Office/Outpatient Established Lo w MDM 20-29 Min Completed 12/19/2020 01958 Office/Outpatient Established Mo d MDM 30-39 Min Completed 12/09/2020 70222 Diffusing Capacity Completed 12/09/2020 07926 Plethysmography Determination Nery ng Volumes & Per Airway Resist Completed 12/09/2020 09939 Bronchospasm Evaluation Complete d Medical Devices Description No Information Available Encounters Type Date Location Provider Dx Diagnosis Office Visit 01/30/2021 9:30a [facility] Leonel Nick MD E04.2 Nontoxic multinodular goiter R06.00 Dyspnea, unspecified 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 Leonel prado MD 01/30/2021 E04.2 Nontoxic multinodular goiter Elvin [...] L ab 12/09/2020 R05 Cough Pulmonary Lab Plan of Treatment Future Appointment(s):* 05/31/2021 8:15 am - Wei Greenwood MD at [facility] * 05/31/2021 8:15 am - Suresh Rossi II, PA-C at [facility] * 05/31/2021 8:15 am - Leonel Nick MD at [facility] 04/28/2021 - Leonel Nick MD* C73 Malignant neoplasm of thyroid gland * 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
--- OUTSIDE RECORDS SUMMARY | 2021-05-31 08:56 | CCD ---
Author Author [facility] Organization [facility] Address Unknown Phone Unavailable Care Team Providers Care Director Erp Name Role Phone Souleymane Cox Unavailable PROBLEMS Type Condition ICD9-CM Code [id number] Code Onset Dates Condition S tatus W/U Status Risk SNOMED Code Notes Problem Paroxysmal atrial fibrillation I48.0 Active confir med 161414038 Problem Palpitations R00.2 Active confirmed 2708081 2 Problem Encounter for immunization Z23 Active confirmed 016359987 Problem Dizziness and giddiness R42 Active confirmed 603374216 Problem Pure hypercholesterolemia E78.0 Active confirmed 540918214 Problem Primary osteoarthritis involving multiple joints M 15.0 Active confirmed 780328229 Problem Chronic constipation K59.00 Active confirmed 416191240 Problem Multinodular goiter E04.2 Active confirmed 849210086 Problem Perirectal burning K62.89 Active confirmed 9 1899773 Problem Arteriosclerosis I70.90 Active confirmed 720 75854 Problem Diverticulosis K57.90 Active confirmed 97380 1000 Problem Tachy-julio cesar syndrome I49.5 Active confirmed 40437414 Problem History of DVT in adulthood Z86.718 Active confirme d 271827129 Problem Paroxysmal atrial flutter I48.92 Active confirmed 006960131 Problem Degenerative disc disease, cervical M50.30 Acti ve confirmed 81687514 Problem Carpal tunnel syndrome of right wrist G56.01 Ac tive confirmed 63626476 Problem Myofascial pain M79.1 Active confirmed 2790 24108 Problem Bony exostosis M89.8X9 Active confirmed 4161 93858 Problem 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 0 Active confirmed 0262503 Problem Stasis dermatitis of right l ower extremity due to peripheral venous hypertension I83.11 Active confirmed 843718691 Problem 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 Active confirmed 674277018 Problem Impairment of balance R26.89 Active confirmed 607507168 Problem Multinodular goiter (nontoxic) E04.2 Active confir med 59179294 Problem Orthostatic hypotension I95.1 Active confirmed 23869749 Problem Chronic diastolic heart failure I50.32 Active confi rmed 417681334 Problem Maxillary sinusitis J32.0 Active confirmed 89003178 Problem Hyperthyroidism E05.90 Active confirmed 3448 6009 Problem Hypertensive heart disease without heart failure I 11.9 Active confirmed 38337017 Problem Chronic dyspnea R06.09 Active confirmed 8705 91988 Problem Acute on chronic heart failure with preserved ej ection fraction I50.33 Active confirmed 015792727 Problem 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 A ctive confirmed 70599083 Problem Carpal tunnel syndrome G56.00 Active confirmed 41698239 Problem Papillary thyroid carcinoma C73 Active confirmed 027008769 Problem Carpal tunnel syndrome, right G56.01 Active co nfirmed 939444047976322 Problem Asthma, intermittent J45.20 Active confirmed 814447510 Problem Vitamin B12 deficiency E53.8 Active confirmed 965602657 Problem Ingrown nail L60.0 Active confirmed 4403623 05 Problem Encounter for general adult medical exam ination with abnormal findings Z00.01 Active confirmed 491190947 Problem S/P cardiac pacemaker procedure Z95.0 Active confi rmed 165386934 Problem Carpal tunnel syndrome, left G56.02 Active con firmed 185628601844607 Problem GERD (gastroesophageal reflux disease) K21.9 A ctive confirmed 644763829 Problem Ascending aortic aneurysm I71.2 Active confirmed 619506037 Problem Primary osteoarthritis involving multiple joints M 89.49 Active confirmed 737696058 ALLERGIES Allergen (clinical drug ingredient) Drug/Non Drug Allergy do cumented on EMR Reaction Allergy Type Onset Date Status meloxicam Mobic([facility] Code:[address]-05) Bp elevated Drug Allergy Active ENCOUNTERS from 1938 to 2021-05-23 Encounter Location Date Provider Diagnosis [facility] Deepak NUNEZ [phone] [place] [address] May, Souleymane Cox Papillary thyroid carcinoma C73 ; Acute on chronic heart failure with preserved ejection fraction I50.33 ; Paroxysmal atrial fibrillation I48.0 ; Pre- op exam Z01.818 ; Tachy-julio cesar syndrome I49.5 and GERD (gastroesophageal reflux disease) K21.9 IMMUNIZATIONS Vaccine Route Administration Date Status Influenza (High Dose 65 & up) IM [...] FOR REFERRAL No Information VITAL SIGNS Weight 208 lbs May, Height 5'3 1/2" in May, BMI 36.26 kg/m2 May, Heart Rate 62 /min May, Respiratory Rate 18 /min May, Temperature 98.1 degrees Fahrenheit May, Oximetry 98 May, Blood pressure systolic 113 mm Hg May, Blood pressure diastolic 71 mm Hg May, MEDICATIONS Medication SIG (Take, Route, Frequency, Duration) Notes Start Da te End Date Status Potassium Chloride 10 MEQ 1 capsule with food Orally Once a day Active Xarelto 20 MG 1 tablet with food Orally Once a day Active Refresh 1.4-0.6 % 1 drop into affected eye as needed Ophthalmic 24 time(s) a day Active Metoprolol Tartrate 50 MG 1 tablet with food Orally Twice a day Active Midodrine HCl 5 MG 1 tablet Orally Three times a day new Hold if BP above 110 Apr, Active Lasix 20 MG 1 tablet Orally Once a day Active Vitamin B12 500 MCG 2 tablets Orally Once a day Active Acetaminophen 650 MG 2 tablets as needed Orally every 12 hours Active Omeprazole 40 MG 1 capsule 30 minutes before morning meal Orally bid Sep, Active Digoxin 125 MCG 1 tablet Orally Acti ve Vitamin D3 25 MCG (1000 UT) 1 capsule Orally Once a day Active PROCEDURES No Information RESULTS No Results REASON FOR VISIT TCM/ACO 7 d/c 05/11 CHF,pre op per Dr Cox for Dr. Nick MEDICAL (GENERAL) HISTORY Type Description Date Medical [...] culture positive Medical History DVT right leg, 1966 while Medical History Hemorrhage Medical History Brain [...] History Colonoscopy,endoscopy 01/28/19 Surgical History Pacemaker ([facility]) 05/31/2020 Hospitalization History Surgery Hospitalization History [facility] - CHF 2018 Hospitalization History [facility] - [facility] 04/2021 Goals Section No Information Health Concerns No Information MEDICAL EQUIPMENT No Information MENTAL STATUS No Information FUNCTIONAL STATUS No Information ASSESSMENTS Encounter Date Diagnosis Assessment Notes Treatment Notes Treatm ent Clinical Notes May, Papillary thyroid carcinoma (ICD-10 - C73) surgery as planned. May, Acute on chronic heart failu re with preserved ejection fraction (ICD-10 - I50.33) continue meds to control heart rate. likely to be the best way to prevent relapse of heart failure symptoms (short of breath) May, Paroxysmal atrial fibrillation (ICD-10 - I48.0) May, Pre-op exam (ICD-10 - Z01.818) 1. Urgency of the surgery: time sensitive 2. Active Cardiac Conditions: none at this time but subject to episodic tachyarrhythmia from afib and her HFpEF seems to have been triggered by the increased heart rate episodes, now compensated. 3. Surgery-specific risk: low 4: Patient's functional capacity: approx 4 METS based on described activities. See Cardiology clearance note 5: Clinical risk factors: Hx of paroxysmal afib. Recommendation: patient should stop her xarelto 3 days before surgery. metoprolol and digoxin and omeprazole should not be interrupted. Lasix should not be dosed the morning of surgery. May, Tachy-julio cesar syndrome (ICD-10 - I49.5) May, GERD (gastroesophageal reflux disease) (ICD-10 - K21.9) PLAN OF TREATMENT Medication Medication Name Sig Start Date Stop Date Potassium Chloride 10 MEQ 1 capsule with food Orally Once a day Omeprazole 40 MG 1 capsule 30 minutes before morning meal Orally bid Sep, Digoxin 125 MCG 1 tablet Orally Refresh 1.4-0.6 % 1 drop into affected eye as needed Ophthalmic 24 time(s) a day Acetaminophen 650 MG 2 tablets as needed Orally every 12 hours Metoprolol Tartrate 50 MG 1 tablet with food Orally Twice a day Xarelto 20 MG 1 tablet with food Orally Once a day Midodrine HCl 5 MG 1 tablet Orally Three times a day Apr, Lasix 20 MG 1 tablet Orally Once a day Vitamin B12 500 MCG 2 tablets Orally Once a day Vitamin D3 25 MCG (1000 UT) 1 capsule Orally Once a day Treatment Notes Assessment Notes Clinical Notes Papillary thyroid carcinoma surgery as planned. Acute on chronic heart failure with preserved ejection fraction continue meds to control heart rate. likely to be the best way to prevent relapse of heart failure symptoms (short of breath) Pre-op exam 1. Urgency of the surgery: t cora sensitive2. Active Cardiac Conditions: none at this time but subject to episodic tachyarrhythmia from afib and her HFpEF seems to have been triggered by the increased heart rate episodes, now compensated.3. Surgery-specific risk: low4: Patient's functional capacity: approx 4 METS based on described activities. See Cardiology clearance note5: Clinical risk factors: Hx of paroxysmal afib.Recommendation: patient should stop her xarelto 3 days before surgery. metoprolol and digoxin and omeprazole should not be interrupted. Lasix should not be dosed the morning of surgery. Future Test Test Name Order Date DIGOXIN LEVEL [id number] Comprehensive Metabolic Profile (CMP) [id number] CBC - Complete Blood Count [id number] FREE T4 & TSH PANEL [id number] Next Appt Details 3 Months Reason: Provider Name:Souleymane Cox, 2021-06-13 11 :00:00 AM, [address] , , [place], [address], Provider Name:Souleymane Cox, 2021-07-19 11 :00:00 AM, [address], , [place], [address], Insurance Providers Payer Name Payer Address Payer Phone Insured Name Patient Relati onship to Insured Coverage Start Date Coverage End Date MEDICARE Part A and B [address] [facility] [phone] BERNY LISA [facility] [employer] [facility] CLAIM DIV [address] [facility] [id number] BERNY LISA self
--- OUTSIDE RECORDS SUMMARY | 2021-05-31 08:56 | CCD ---
Author Author [facility] Organization [facility] Address Unknown Phone Unavailable Care Team Providers Care Hydrometallurgical Engineer Name Role Phone Souleymane Cox Unavailable PROBLEMS Type Condition ICD9-CM Code ERU26-HJ Code Onset Dates Condition S tatus W/U Status Risk SNOMED Code Notes Problem Myofascial pain M79.1 Active confirmed 2790 39092 Problem Paroxysmal atrial fibrillation I48.0 Active confir med 870997549 Problem Carpal tunnel syndrome of right wrist G56.01 Ac tive confirmed 06932722 Problem Palpitations R00.2 Active confirmed 3629022 2 Problem Encounter for immunization Z23 Active confirmed 168268477 Problem Dizziness and giddiness R42 Active confirmed 508419032 Problem Pure hypercholesterolemia E78.0 Active confirmed 730433574 Problem Primary osteoarthritis involving multiple joints M 15.0 Active confirmed 434046143 Problem Chronic constipation K59.00 Active confirmed 070499152 Problem Multinodular goiter (nontoxic) E04.2 Active confir med 23206716 Problem Orthostatic hypotension I95.1 Active confirmed 92262666 Problem Chronic diastolic heart failure I50.32 Active confi rmed 718947833 Problem Maxillary sinusitis J32.0 Active confirmed 82139712 Problem History of DVT in adulthood Z86.718 Active confirme d 887857221 Problem Degenerative disc disease, cervical M50.30 Acti ve confirmed 96017988 Problem 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 Active confirmed 966902832 Problem 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 A ctive confirmed 32435568 Problem Ingrown nail L60.0 Active confirmed 0690586 05 Problem GERD (gastroesophageal reflux disease) K21.9 A ctive confirmed 138229101 Problem Bony exostosis M89.8X9 Active confirmed 4161 92860 Problem Vitamin B12 deficiency E53.8 Active confirmed 517502697 Problem B12 deficiency E53.8 Active confirmed 67013 4004 Problem History of thrombophlebitis Z86.72 Active confirmed 566219663 Problem Chronic fatigue R53.82 Active confirmed 5270 2003 Problem Essential hypertension I10 Active confirmed 03110668 Problem Hypertensive heart disease with heart failure I11. 0 Active confirmed 2914410 Problem Stasis dermatitis of right l ower extremity due to peripheral venous hypertension I83.11 Active confirmed 760860107 Problem 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 Active confirmed 641137142 Problem Impairment of balance R26.89 Active confirmed 860638226 Problem Paroxysmal atrial flutter I48.92 Active confirmed 078560635 Problem Tachy-julio cesar syndrome I49.5 Active confirmed 29490521 Problem Hyperthyroidism E05.90 Active confirmed 3448 6009 Problem Ascending aortic aneurysm I71.2 Active confirmed 785313714 Problem Arteriosclerosis I70.90 Active confirmed 720 11338 Problem Perirectal burning K62.89 Active confirmed 9 6994990 Problem Carpal tunnel syndrome, left G56.02 Active con firmed 263991082480381 Problem Multinodular goiter E04.2 Active confirmed 174370939 Problem Diverticulosis K57.90 Active confirmed 32079 1000 Problem Carpal tunnel syndrome G56.00 Active confirmed 18789678 Problem Carpal tunnel syndrome, right G56.01 Active co nfirmed 375908245413115 Problem Asthma, intermittent J45.20 Active confirmed 240735121 Problem Hypertensive heart disease without heart failure I 11.9 Active confirmed 40506199 Problem Chronic dyspnea R06.09 Active confirmed 8705 72975 Problem Encounter for general adult medical exam ination with abnormal findings Z00.01 Active confirmed 750892246 Problem S/P cardiac pacemaker procedure Z95.0 Active confi rmed 284869227 Problem Primary osteoarthritis involving multiple joints M 89.49 Active confirmed 293476722 ALLERGIES Allergen (clinical drug ingredient) Drug/Non Drug Allergy do cumented on EMR Reaction Allergy Type Onset Date Status meloxicam Mobic([facility] Code:[address]-14) Bp elevated Drug Allergy Active ENCOUNTERS from 1940 to 2021-05-08 Encounter Location Date Provider Diagnosis [id number] [place] [address] Apr, Souleymane Cox IMMUNIZATIONS Vaccine Route Administration Date [...] Information RESULTS No Results REASON FOR VISIT HTN, elevated HR, SOB MEDICAL (GENERAL) HISTORY Type Description Date Medical [...] History Colonoscopy,endoscopy 01/28/19 Surgical History Pacemaker ([facility]) 05/31/2020 Hospitalization History Surgery Hospitalization History [facility] - [facility] 2019 Goals Section No Information Health Concerns No Information MEDICAL EQUIPMENT No Information MENTAL STATUS No Information FUNCTIONAL STATUS No Information ASSESSMENTS No Information PLAN OF TREATMENT Next Appt Details Provider Name:Souleymane Cox, 2021-06-13 11 :00:00 AM, Jim ENRIQUE [place], , [place], [address], Provider Name:Souleymane Cox, 2021-07-19 11 :00:00 AM, LorraineKevin [place], , [place], [address], Insurance Providers Payer Name Payer Address Payer Phone Insured Name Patient Relati onship to Insured Coverage Start Date Coverage End Date [employer] [facility] CLAIM DIV [address] [facility] [phone] BERNY LISA MEDICARE Part A and B [address] [facility] [id number] [phone] BERNY LISA self
--- OUTSIDE RECORDS SUMMARY | 2021-05-31 08:56 | CCD | Continuity of Care Document ---
Author Author Donna REILLY DPM Organization Unknown Address [address] [place] [address] [address] [place] [address] Phone [phone] Care Team Providers Care Motion Pictures Cartoonist Name Role Phone Souleymane Cox M.D.M [phone] Problems Active Problems Provider Date Ingrowing nail [...] a day 14tabs Jose Reilly DPM 04/13/2021 Fdjslpot-Bxxiirefc-AP 1% Solution apply one drop to base of nail after betadine soaks as directed 10units Jose Reilly DPM 03/30/2021 Aspercreme W/Lidocaine 4% Cream apply to foot 2-3 times daily as needed 1units Jose Reilly DPM 12/23/2020 Fluticasone Propionate 50mcg/Act Suspension Sherly [place] 00 Tizanidine HCL 2mg Tablets Take One Tablet By Mouth AT Bedtime as Needed Unknown Loratadine 10mg Tablets Take One Tablet By Mouth Every Day Unknown Sucralfate 1gm Tablets Ash Gilmore M.D. Amoxicillin 500mg Capsules Kelley Villalpandoe Ventolin HFA 108(90Base) mcg/Act A erosol Kenny Cruz,Souleymane Alprazolam 0.5mg Tablets Kenny Cruz,Souleymane Amoxicillin 875mg Tablets izenga DO, Be Prednisone 20mg Tablets Huizenga DO, Be Digoxin 125mcg Tablets Take One Tablet By Mouth Every Day Unknown Midodrine HCL 5mg Tablets Take One Tablet By Mouth Three Times A Day Unknown Omeprazole 40mg Capsules DR Kenny Cruz,Souleymane Potassium Chloride ER 10Meq Capsul es ER Take One Capsule By Mouth Every Day With Food Un known Potassium Chloride ER 10Meq Tablet s ER Take One Tablet By Mouth Every Day Unknown Suprep Bowel Prep Kit 17.5-3.13-1.6GM/177ML Solution Deirdre Cruz,Ash Amoxicillin 500mg Tablets Judah TINOCO,Sherly Fluconazole 150mg Tablets Mainor ALEJANDRINA,[facility] Amlodipine Besylate 2.5mg Tablets Take One Tablet By Mouth Every Day Unknown Furosemide 20mg Tablets Take One Tablet By Mouth Every Day Unknown Potassium Chloride Enedelia ER 10Meq Tablets ER Anjum Cruz,Silverio Metoprolol Tartrate 50mg Tablets Anjum Cruz,Silverio Enalapril Maleate 5mg Tablets Anjum Cruz,Silverio Flecainide Acetate 50mg Tablets Take One Tablet By Mouth Twice A Day Unknown Lisinopril 2.5mg Tablets Unknown Oxycodone-Acetaminophen 5-325mg Tablets Unknown Esomeprazole Magnesium 40mg Capsul es DR Take One Capsule By Mouth Once Daily Unknown Amoxicillin/Clavulanate Potassium 875-125mg Tablets Unknown Xarelto 20mg Tablets Unknown Medications Administered in Office Medication SIG Qnty Indications Ordering Provider Date Inject Triamcinolone Acetonide 10 ML, ND C 5522-5006-89 Injection Jose bocanegra DPM 01/09/2018 Inject Dexamthosone Phosphate 46268-676- 30 Injection Jose Reilly DPM 018 Immunizations [...] Available Procedures Date Code Description Status 03/30/2021 42963 Excise Nail Bed & Matrix Complet ed 03/03/2021 33833 Office/Outpatient Established SF MDM 10-19 Min Completed 12/23/2020 70139 Office/Outpatient Established SF MDM 10-19 Min Completed 12/23/2020 67862 Debridement 6-10 Nails Electric Completed Medical Devices Description No Information Available Encounters Type Date Location Provider Dx Diagnosis Office Visit 04/13/2021 11:00a [place] [facility] Jose Reilly DPM Z48.89 Encounter for other specified surgical aftercare Office Visit 03/03/2021 3:30p [place] [facility] Jose Reilly DPM M79.676 Pain in unspecified toe(s) L60.0 Ingrowing nail Office Visit 12/23/2020 3:15p [place] [facility] Jose Reilly DPM M65.879 Other synovitis and tenosynovitis, unsp ankle and foot B35.1 Tinea unguium L60.0 Ingrowing nail M79.676 Pain in unspecified toe(s) Assessments Date Code Description Provider 04/13/2021 Z48.89 Encounter for other specified george rgical aftercare Jose Reilly DPM 03/30/2021 L60.0 Ingrowing nail Jose Reilly DPM 03/30/2021 M79.674 Pain in right toe(s) Jose [place], FERCHO 03/03/2021 M79.676 Pain in unspecified toe(s) Doug Reilly, FERCHO 03/03/2021 L60.0 Ingrowing nail Jose Reilly, SCOTTM 12/23/2020 M65.879 Other synovitis and tenosynovitis, unspecified ankle and foot Jose Reilly, FERCHO 12/23/2020 B35.1 Tinea unguium Jose Reilly, FERCHO 12/23/2020 L60.0 Ingrowing nail Jose Reilly, FERCHO 12/23/2020 M79.676 Pain in unspecified toe(s) Doug Reilly DPM Plan of Treatment Future Appointment(s):* 08/07/2021 11:00 am - Jose Reilly DPM at [facility] Functional Status Description No Information Available Mental Status Description No Information Available Referrals Description No Information Available
--- OUTSIDE RECORDS SUMMARY | 2021-05-31 08:56 | CCD | Continuity of Care Document ---
Author Author Donna REILLY DPM Organization Unknown Address [address] [place] [address] [address] [place] [address] Phone [phone] Care Team Providers Care Pediatric Neurologist Name Role Phone Souleymane Cox M.D.M [phone] Problems Active Problems Provider Date Ingrowing nail [...] a day 14tabs Jose Reilly DPM 04/13/2021 Bqkalmqm-Juuhxhdkv-AL 1% Solution apply one drop to base [...] Tablets Judah TINOCO,Sherly Fluconazole 150mg Tablets Mainor ALEJANDRINA,[facility] Amlodipine Besylate 2.5mg Tablets Take One Tablet [...] Inject Triamcinolone Acetonide 10 ML, ND C 2826-8896-78 Injection Jose bocanegra DPM 01/09/2018 Inject Dexamthosone Phosphate 47385-567- 30 Injection Jose Reilly DPM 018 Immunizations [...] Available Procedures Date Code Description Status 03/30/2021 00212 Excise Nail Bed & Matrix Complet ed 03/03/2021 63291 Office/Outpatient Established SF MDM 10-19 Min Completed 12/23/2020 96235 Office/Outpatient Established SF MDM 10-19 Min Completed 12/23/2020 38921 Debridement 6-10 Nails Electric Completed Medical Devices Description No Information Available Encounters Type Date Location Provider Dx Diagnosis Office Visit 04/13/2021 11:00a [place] [facility] Jose Reilly DPM Z48.89 Encounter for other specified surgical aftercare Office Visit 03/03/2021 3:30p [place] [facility] Jose Reilly DPM M79.676 Pain in unspecified toe(s) L60.0 Ingrowing nail Office Visit 12/23/2020 3:15p [place] [facility] Jose Reilly DPM M65.879 Other synovitis [...] 11:00 am - Jose Reilly DPM at [facility] Functional Status Description No Information Available Mental Status Description No Information Available Referrals Description No Information Available
--- OUTSIDE RECORDS SUMMARY | 2021-05-31 08:58 | CCD ---
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 Name Role Phone Lloyd Munguia MD Unavailable Unavaila Lloyd Paula MD Unavailable [...] Unavaila Lloyd Paula MD Unavailable Unavaila ble Migeed, Lloyd Maldonado [...] Unavaila ble MigeedLloyd MD Unavailable Unavaila ble GigieedLloyd MD Unavailable Unavaila ble GigieedLloyd MD Unavailable Unavaila ble MigeedLloyd MD [...] Unavaila ble MigeedLlody MD Unavailable Unavaila ble MigeedLloyd MD Unavailable Unavaila ble MigeedLloyd MD Unavailable Unavaila ble MigeedLloyd MD Unavailable Unavaila ble MigeedLloyd MD Unavailable Unavaila ble MigeedLloyd MD Unavailable Unavaila ble MigeedLloyd MD Unavailable Unavaila ble MigeedLloyd MD Unavailable Unavaila ble MigeedLloyd MD Unavailable Unavaila ble MigeedLloyd MD Unavailable Unavaila ble MigeedLloyd MD Unavailable Unavaila ble MYLA, LAUREN MASON SAMPLE SUPERVISOR-C Unavailable Unavailable MYLA, LAUREN MASON SAMPLE SUPERVISOR-C Unavailable Unavailable MYLA, LAUREN MASON SAMPLE SUPERVISOR-C Unavailable Unavailable MYLA, LAUREN MASON SAMPLE SUPERVISOR-C Unavailable Unavailable MYLA, LAUREN MASON SAMPLE SUPERVISOR-C Unavailable Unavailable MYLA, LAUREN MASON SAMPLE SUPERVISOR-C Unavailable Unavailable MYLA, LAUREN MASON SAMPLE SUPERVISOR-C Unavailable Unavailable MYLA, LAUREN MASON SAMPLE SUPERVISOR-C Unavailable Unavailable MYLA, LAUREN MASON SAMPLE SUPERVISOR-C Unavailable Unavailable MYLA, LAUREN MASON SAMPLE SUPERVISOR-C Unavailable Unavailable MYLA, LAUREN MASON SAMPLE SUPERVISOR-C Unavailable Unavailable MYLA, LAUREN MASON SAMPLE SUPERVISOR-C Unavailable Unavailable MYLA, LAUREN MASON SAMPLE SUPERVISOR-C Unavailable Unavailable MYLA, LAUREN MASON SAMPLE SUPERVISOR-C Unavailable Unavailable MYLA, LAUREN MASON SAMPLE SUPERVISOR-C Unavailable Unavailable MYLA, LAUREN MASON SAMPLE SUPERVISOR-C Unavailable Unavailable MYLA, LAUREN MASON SAMPLE SUPERVISOR-C Unavailable Unavailable Wagner Benavideselle PA Unavailable Unavailable BenavidesWagner blackburnelle PA Unavailable Unavailable BenavidesWagner blackburn PA Unavailable Unavailable BenavidesWagner blackburn PA Unavailable Unavailable BenavidesWagner blackburnelle PA Unavailable Unavailable Benavides, L Judi PA Unavailable Unavailable BenavidesWagner blackburnelle PA Unavailable Unavailable BenavidesWagner blackburnelle PA Unavailable Unavailable Benavides L Judi PA Unavailable Unavailable Benavides, L Judi PA Unavailable Unavailable Benavides, L Judi PA Unavailable Unavailable Benavides, L Judi PA Unavailable Unavailable Benavides, L Judi PA Unavailable Unavailable Benavides, L Judi PA Unavailable Unavailable Benavides, L Judi PA Unavailable Unavailable Benavides, L Judi PA Unavailable Unavailable Benavides, L Judi PA Unavailable Unavailable Benavides, L Judi PA Unavailable Unavailable Benavides, L Judi PA Unavailable Unavailable Benavides, L Judi PA Unavailable Unavailable Benavides, L Judi PA Unavailable Unavailable Benavides, L Judi PA Unavailable Unavailable Benavides, L Judi PA Unavailable Unavailable Benavides, L Judi PA Unavailable Unavailable Benavides, L Judi PA Unavailable Unavailable Benavides, L Judi PA Unavailable Unavailable Benavides, L Judi PA Unavailable Unavailable Benavides, L Judi PA Unavailable Unavailable Benavides, L Judi PA Unavailable Unavailable Benavides, L Judi PA Unavailable Unavailable Benavides, L Judi PA Unavailable Unavailable Benavides, L Judi PA Unavailable Unavailable Benavides, L Judi PA Unavailable Unavailable Benavides, L Judi PA Unavailable Unavailable Benavides, L Judi PA Unavailable Unavailable Benavides, L Judi PA Unavailable Unavailable Benavides, L Judi PA Unavailable Unavailable Benavides, L Judi PA Unavailable Unavailable Benavides, L Judi PA Unavailable Unavailable Comstock, V DINORAH PA-C Unavailable Unavailable Art, V DINORAH PA-C Unavailable Unavailable Comstock, V DINORAH PA-C Unavailable Unavailable Art, V DINORAH PA-C Unavailable Unavailable Comstock, V DINORAH PA-C Unavailable Unavailable Comstock, V DINORAH PA-C Unavailable Unavailable Comstock, V DINORAH PA-C Unavailable Unavailable Comstock, V DINORAH PA-C Unavailable Unavailable Comstock, V DINORAH PA-C Unavailable Unavailable Comstock, V DINORAH PA-C Unavailable Unavailable Comstock, V DINORAH PA-C Unavailable Unavailable Art, V DINORAH PA-C Unavailable Unavailable Art, V DINORAH PA-C Unavailable Unavailable Art, V DINORAH PA-C Unavailable Unavailable [place], N Shade PRODUCTION ADMINISTRATIVE ASSISTANT Unavailable Unavailable Mary, N Shade PRODUCTION ADMINISTRATIVE ASSISTANT Unavailable Unavailable Mary, N Shade PRODUCTION ADMINISTRATIVE ASSISTANT Unavailable Unavailable [place], N Shade PRODUCTION ADMINISTRATIVE ASSISTANT Unavailable Unavailable Mary, N Shade PRODUCTION ADMINISTRATIVE ASSISTANT Unavailable Unavailable Mary, N Shade PRODUCTION ADMINISTRATIVE ASSISTANT Unavailable Unavailable [place], N Shade PRODUCTION ADMINISTRATIVE ASSISTANT Unavailable Unavailable [place], N Shade PRODUCTION ADMINISTRATIVE ASSISTANT Unavailable Unavailable Mary, N Shade PRODUCTION ADMINISTRATIVE ASSISTANT Unavailable Unavailable [place], N Shade PRODUCTION ADMINISTRATIVE ASSISTANT Unavailable Unavailable [place], N Shade PRODUCTION ADMINISTRATIVE ASSISTANT Unavailable Unavailable [place], N Shade PRODUCTION ADMINISTRATIVE ASSISTANT Unavailable Unavailable [place], N Shade PRODUCTION ADMINISTRATIVE ASSISTANT Unavailable Unavailable Mary, N Shade PRODUCTION ADMINISTRATIVE ASSISTANT Unavailable Unavailable [place], N Shade PRODUCTION ADMINISTRATIVE ASSISTANT Unavailable Unavailable Mary, N Shade PRODUCTION ADMINISTRATIVE ASSISTANT Unavailable Unavailable [place], N Shade PRODUCTION ADMINISTRATIVE ASSISTANT Unavailable Unavailable [place], N Shade PRODUCTION ADMINISTRATIVE ASSISTANT Unavailable Unavailable Mary, N Shade PRODUCTION ADMINISTRATIVE ASSISTANT Unavailable Unavailable [place], N Shade PRODUCTION ADMINISTRATIVE ASSISTANT Unavailable Unavailable [place], N Shade PRODUCTION ADMINISTRATIVE ASSISTANT Unavailable Unavailable [place], N Shade PRODUCTION ADMINISTRATIVE ASSISTANT Unavailable Unavailable [place], N Shade PRODUCTION ADMINISTRATIVE ASSISTANT Unavailable Unavailable Mary, N Shade PRODUCTION ADMINISTRATIVE ASSISTANT Unavailable Unavailable [place], N Shade PRODUCTION ADMINISTRATIVE ASSISTANT Unavailable Unavailable Mary, N Shade PRODUCTION ADMINISTRATIVE ASSISTANT Unavailable Unavailable [place], N Shade PRODUCTION ADMINISTRATIVE ASSISTANT Unavailable Unavailable Mary, N Shade PRODUCTION ADMINISTRATIVE ASSISTANT Unavailable Unavailable Mary, N Shade PRODUCTION ADMINISTRATIVE ASSISTANT Unavailable Unavailable [place], N Shade PRODUCTION ADMINISTRATIVE ASSISTANT Unavailable Unavailable Mary, N Shade PRODUCTION ADMINISTRATIVE ASSISTANT Unavailable Unavailable Mary, N Shade PRODUCTION ADMINISTRATIVE ASSISTANT Unavailable Unavailable Mary, N Shade PRODUCTION ADMINISTRATIVE ASSISTANT Unavailable Unavailable [id number], NA Unavailable [phone] Shawn NICK MD Unavailable Unavailable Shawn NICK [...] Unavailable Unavailable Shawn NICK MD Unavailable Unavailable Re-disclosure Warning The records [...] is protected by Article 27-F of the [facility] Public Health law. If you continue you may have access to information: Regarding HIV / AIDS; Provided by facilities licensed or operated by the [facility] Office of Mental Health; or Provided by the [facility] Office for People With Developmental Disabilities. If such information is present, then the following [facility] mandated warning applies: This information has been [...] Description Data Source(s) Unknown Female Problem [facility] Unknown Male Problem [facility] ([facility]) Unknown Male Problem [facility] ([facility] () Unknown Male Problem MEDENT ([facility] ) Encounters Encounter Providers Location Date Indications Data Source(s ) Outpatient Attender: Judi GREEN.CONY-[email or web address] 10/2020 12:00:00 AM EDT - 05/18/2021 09:31:23 AM EDT [facility] Unknown [address] [facility] [facility] [address] 05/08/2021 12:00:00 AM EDT eCW1 ([facility]) Unknown [address] [facility] [place] [address] 05/01/2021 12:00:00 AM EDT eCW1 ([facility]) Outpatient Admitter: GREGORY NICK MDReferrer: GREGORY NICK MD 04/26/2021 12:00:00 AM EDT Nontoxic goiter, unspecified [facility] N[facility]oxic go[facility], unspecified Outpatient [address] [facility] [place] [address] 04/18/2021 12:00:00 AM EDT eCW1 ([facility]) Outpatient PETER.CT-SJP.SYR 04/13/2021 12:03:15 PM EDT [facility] Office Visit Attender: IAN REILLY [facility] Office 03/17 11:00:00 AM EDT MEDENT ([facility] Unknown [address] [facility] [address] 03/28/2021 12:00:00 AM EDT eCW1 ([facility]) Unknown [address] [facility] [place] [address] 03/15/2021 12:00:00 AM EDT eCW1 ([facility]) Outpatient Attender: IAN REILLY [facility] Office 02/13 03:30:00 PM EDT MED[facility] ([facility] Outpatient [address] [facility] [place] [address] 02/09/2021 12:00:00 AM EDT eCW1 ([facility]) Outpatient Attender: GREGORY Nick/Charito/Gal/Reind l 01/30/2021 09:30:00 AM EDT MED[facility] ([facility] [place] [address] [facility] [facility] [address] 01/20/2021 12:00:00 AM EDT eCW1 ([facility]) [place] [address] [facility] [facility] [address] 01/17/2021 12:00:00 AM EDT eCW1 ([facility]) Outpatient THERON 01/04/2021 12:30:51 PM EDT [facility] Outpatient Attender: IAN REILLY [facility] 12/13 03:15:00 PM EDT MED[facility] ([facility] Outpatient Attender: GREGORY Nick/Charito/Gal/Shanted l 12/23/2020 02:00:00 PM EDT MED[facility] ([facility] Outpatient Attender: MASON Nick/Charito/Gal/R mikalal 12/19/2020 10:15:00 AM EDT MED[facility] ([facility]) Outpatient Attender: DINORAH WAYNECONY 12:00:00 AM EDT - 12/08/2020 10:55:32 AM EDT [facility] Outpatient Referrer: DINORAH GRISSOM 11:15:14 AM EDT [facility] Outpatient Attender: DINORAH GRISSOM 04/2021 01:21:30 PM EDT - 11/21/2020 02:57:24 PM EDT [facility] Outpatient Attender: MASON Rojasr/Gal/Vidya galdamez 11/15/2020 01:15:00 PM EDT MED[facility] ([facility] Outpatient Attender: DINORAH SOLIZ.CONY 01:10:30 PM EDT - 11/08/2020 02:57:59 PM EDT [facility] Out[place] [address] [facility] [facility] [address] 11/03/2020 12:00:00 AM EDT eCW1 ([facility]) [place] [address] [facility] [facility] [address] 11/03/2020 12:00:00 AM EDT eCW1 ([facility]) Outpatient Attender: DINORAH BEALSJLauraCONY 10:12:32 AM EDT - 10/25/2020 11:16:43 AM EDT [facility] Unknown [address] [facility] [facility] [address] 10/19/2020 12:00:00 AM EDT eCW1 ([facility]) [place] [address] [facility] [address] 10/04/2020 12:00:00 AM EDT eCW1 ([facility]) Outpatient PETER.MAYKEL 09/30/2020 11:27:23 AM EDT [facility] Outpatient ROSANACONY 09/29/2020 12:00:00 AM EDT [facility] Outpatient [address] [facility] [address] 09/16/2020 12:00:00 AM EST eCW1 ([facility]) [place] [address] [facility] [address] 09/15/2020 12:00:00 AM EST eCW1 ([facility]) Out[place] [address] [facility] [facility] [address] 08/10/2020 12:00:00 AM EST eCW1 ([facility]) Outpatient SJP.CONY-SJP 07/02/2020 10:42:01 AM EST [facility] Outpatient SJP.CONY-[email or web address].CONY 06/30/2020 12:00:00 AM EST [facility] Outpatient Attender: DINORAH Cordova PA-C [email or web address] 03/2020 12:00:00 AM EST - 06/22/2020 02:55:55 PM EST [facility] Out[place] [address] [facility] [address] 06/16/2020 12:00:00 AM EST eCW1 ([facility]) [place] [address] [facility] [address] 06/16/2020 12:00:00 AM EST eCW1 ([facility]) Office Visit Attender: NA LAWSON_143 [facility] 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 Outpatient Attender: Erica Munguia MD [facility] 05/19/2020 01:00:00 PM EST MEDENT ([facility]) Outpatient Attender: IAN REILLY [facility] Office 04/16 03:15:00 PM EDT [facility] ([facility] Outpatient Attender: GREGORY Nick/Charito/Gal/Reind l 05/02/2020 02:00:00 PM EDT [facility] ([facility] [place] [address] [facility] [address] 04/27/2020 12:00:00 AM EDT eCW1 ([facility]) Out[place] [address] [facility] [address] 04/22/2020 12:00:00 AM EDT eCW1 ([facility]) [place] [address] [facility] [address] 04/21/2020 12:00:00 AM EDT eCW1 ([facility]) [place] [address] [facility] [address] 04/13/2020 12:00:00 AM EDT eCW1 ([facility]) Outpatient Attender: Shade Hernandez NP [email or web address]-[email or web address] 020 10:41:00 AM EDT - 04/12/2020 12:05:10 PM EDT [facility] Medications Medication Brand Name Start Date Product Form Dose Route Admi nistrative Instructions Pharmacy Instructions Status Indications Reaction Description Data Source(s) Metoprolol Tartrate 50 MG Oral Tablet me toprolol tartrate (LOPRESSOR) 50 MG tablet metoprolol tartrate (LOPRESSOR) 50 MG tablet 05/18/2021 12:0 0:00 AM EDT 50 mg Oral active Paroxysmal atrial fibrillation Take 1 tablet (50 mg total) by mouth 2 (two) times a day [facility] Paroxysmal atrial fibrillation 50 mg 05/18/2021 12:00:00 AM EDT tablet 180 TAKE ONE TABLET BY MOUTH TWICE A DAY TAKE ONE TABLET BY MOUTH TWICE A DAY SOLD: 05/19/2021 [facility] Digoxin 0.125 MG Oral Tablet digoxin (LANOXIN) 125 MCG tablet digoxin (LANOXIN) 125 MCG tablet 05/12/2021 12:00:00 AM EDT 125 ug Oral act abdiel Take 125 mcg by mouth daily [facility] 5 mg 05/12/2021 12:00:00 AM EDT tablet 78 TAKE ONE TABLET BY MOUTH THREE TIMES A DAY TAKE ONE TABLET BY MOUTH THREE TIMES A DAY SOLD: 05/19/2021 [facility] 25 mg 05/12/2021 12:00:00 AM EDT tablet 90 TAKE ONE TABLET BY MOUTH EVERY EIGHT HOURS TAKE ONE TABLET BY MOUTH EVERY EIGHT HOURS SOLD: 05/12/2021 [facility] midodrine hydrochloride 5 MG Oral Tablet midodrine (MO OAMATINE) 5 MG tablet midodrine (PROAMATINE) 5 MG tablet 05/12/2021 12:00:00 AM EDT 5 mg Oral aborted Take 5 mg by mouth 3 (three) mendoza es a day [facility] Metoprolol Tartrate 25 MG Oral Tablet me toprolol tartrate (LOPRESSOR) 25 MG tablet metoprolol tartrate (LOPRESSOR) 25 MG tablet 05/12/2021 12:0 0:00 AM EDT 25 mg Oral aborted Take 25 mg by mo uth 2 (two) times a day [facility] Digoxin 0.125 MG Oral Tablet 125 mcg (0.125 mg) DIGOXIN 05/12/2021 12:00:00 AM EDT tablet 30 TAKE ONE TABLET BY MOUTH JAMIN TAKE ONE TABLET BY MOUTH EVERY DAY SOLD: 05/12/2021 [facility] 10 mg 04/21/2021 12:00:00 AM EDT tablet 30 TAKE ONE TABLET BY MOUTH EVERY DAY TAKE ONE TABLET BY MOUTH EVERY DAY SOLD: 04/21/2021 [facility] Lisinopril 10 MG Oral Tablet lisinopril (PRINIVIL,ZEST RIL) 10 MG tablet lisinopril (PRINIVIL,ZESTRIL) 10 MG tablet 04/21/2021 12:00:00 AM EDT 10 mg Oral active Take 10 mg by mouth daily [facility] 5-325 mg 04/21/2021 12:00:00 AM EDT tablet [...] 04/13/2021 12:00:00 AM EDT ORAL active [facility] ([facility] Hydrocortisone 10 MG/ML / Neomycin 3.5 M G/ML / Polymyxin B 31233 UNT/ML Otic Solution [id number] 03/30/2021 12:00:00 AM EDT active [facility] ([facility] 20 mg 02/10/2021 12:00:00 AM EDT [...] FOOD SOLD: 02/13/2021 [facility] 20 mg 02/10/2021 12:00:00 AM EDT tablet 90 TAKE ONE TABLET BY MOUTH EVERY DAY TAKE ONE TABLET BY MOUTH EVERY DAY SOLD: 05/19/2021 [facility] 20 mg 12/30/2020 12:00:00 AM EDT tablet 90 TAKE ONE TABLET BY MOUTH EVERY DAY TAKE ONE TABLET BY MOUTH EVERY DAY SOLD: 03/31/2021 [facility] 20 mg 12/30/2020 12:00:00 AM EDT tablet 90 TAKE ONE TABLET BY MOUTH EVERY DAY TAKE ONE TABLET BY MOUTH EVERY DAY SOLD: 12/30/2020 [facility] rivaroxaban 20 MG Oral Tablet [Xarelto] Xarelto 20 MG TABS X arelto 20 MG TABS 12/29/2020 12:00:00 AM EDT active TAKE ONE TABLET BY MOUTH EVERY DAY [facility] Lidocaine Hydrochloride 40 MG/ML Topical Cream Aspercreme W/ Lidocaine 12/23/2020 12:00:00 AM EDT active [facility] ([facility] 25 mg 12/03/2020 12:00:00 AM EDT [...] by mouth 2 (two) times a day [facility] Fluconazole 150 MG Oral Tablet [Diflucan] Diflucan 150 MG Di flucan 150 MG 11/03/2020 12:00:00 AM EDT 1.0 {tablet} suspended Diflucan 150 MG eCW1 ([facility]) Amoxicillin 875 MG Oral Tablet Amoxicillin 875 MG 11/03/2020 12:00: 00 AM EDT 1.0 {tablet} suspended Amoxicillin 875 M G eCW1 ([facility]) Fluconazole 150 MG Oral Tablet [Diflucan] Diflucan 150 MG Di flucan 150 MG 11/03/2020 12:00:00 AM EDT 1.0 {tablet} active Diflucan 150 MG eCW1 ([facility]) Amoxicillin 875 MG Oral Tablet Amoxicillin 875 MG 11/03/2020 12:00: 00 AM EDT 1.0 {tablet} active Amoxicillin 875 MG eCW1 ([facility]) Fluconazole 150 MG Oral Tablet [Diflucan] Diflucan 150 MG Di flucan 150 MG 11/03/2020 12:00:00 AM EDT 1.0 {tablet} suspended Diflucan 150 MG eCW1 ([facility]) Amoxicillin 875 MG Oral Tablet Amoxicillin 875 MG 11/03/2020 12:00: 00 AM EDT 1.0 {tablet} active Amoxicillin 875 MG eCW1 ([facility]) Fluconazole 150 MG Oral Tablet [Diflucan] Diflucan 150 MG Di flucan 150 MG 11/03/2020 12:00:00 AM EDT 1.0 {tablet} active Diflucan 150 MG eCW1 ([facility]) 875 mg 11/03/2020 12:00:00 AM EDT tablet 20 TAKE ONE TABLET BY MOUTH TWICE A DAY TAKE ONE TABLET BY MOUTH TWICE A DAY SOLD: 11/03/2020 [facility] Amoxicillin 875 MG Oral Tablet Amoxicillin 875 MG 11/03/2020 12:00: 00 AM EDT 1.0 {tablet} suspended Amoxicillin 875 M G eCW1 ([facility]) Amoxicillin 875 MG Oral Tablet Amoxicillin 875 MG 11/03/2020 12:00: 00 AM EDT 1.0 {tablet} suspended Amoxicillin 875 M G eCW1 ([facility]) Fluconazole 150 MG Oral Tablet [Diflucan] Diflucan 150 MG Di flucan 150 MG 11/03/2020 12:00:00 AM EDT 1.0 {tablet} suspended Diflucan 150 MG eCW1 ([facility]) Amoxicillin 875 MG Oral Tablet Amoxicillin 875 MG 11/03/2020 12:00: 00 AM EDT 1.0 {tablet} active Amoxicillin 875 MG eCW1 ([facility]) Amoxicillin 875 MG Oral Tablet Amoxicillin 875 MG 11/03/2020 12:00: 00 AM EDT 1.0 {tablet} suspended Amoxicillin 875 M G eCW1 ([facility]) Fluconazole 150 MG Oral Tablet [Diflucan] Diflucan 150 MG Di flucan 150 MG 11/03/2020 12:00:00 AM EDT 1.0 {tablet} suspended Diflucan 150 MG eCW1 ([facility]) Amoxicillin 875 MG Oral Tablet Amoxicillin 875 MG 11/03/2020 12:00: 00 AM EDT 1.0 {tablet} suspended Amoxicillin 875 M G eCW1 ([facility]) Amoxicillin 875 MG Oral Tablet Amoxicillin 875 MG 11/03/2020 12:00: 00 AM EDT 1.0 {tablet} suspended Amoxicillin 875 M G eCW1 ([facility]) Fluconazole 150 MG Oral Tablet fluconazole (DIFLUCAN) 150 MG tablet fluconazole (DIFLUCAN) 150 MG tablet 11/03/2020 12:00:00 AM EDT aborted TAKE 1 TABLET BY MOUTH TODAY REPEAT IN 3 DAYS [facility] Fluconazole 150 MG Oral Tablet [Diflucan] Diflucan 150 MG Di flucan 150 MG 11/03/2020 12:00:00 AM EDT 1.0 {tablet} suspended Diflucan 150 MG eCW1 ([facility]) Fluconazole 150 MG Oral Tablet [Diflucan] Diflucan 150 MG Di flucan 150 MG 11/03/2020 12:00:00 AM EDT 1.0 {tablet} active Diflucan 150 MG eCW1 ([facility]) Fluconazole 150 MG Oral Tablet [Diflucan] Diflucan 150 MG Di flucan 150 MG 11/03/2020 12:00:00 AM EDT 1.0 {tablet} suspended Diflucan 150 MG eCW1 ([facility]) Amoxicillin 875 MG Oral Tablet Amoxicillin 875 MG 11/03/2020 12:00: 00 AM EDT 1.0 {tablet} suspended Amoxicillin 875 M G eCW1 ([facility]) Fluconazole 150 MG Oral Tablet [Diflucan] Diflucan 150 MG Di flucan 150 MG 11/03/2020 12:00:00 AM EDT 1.0 {tablet} suspended Diflucan 150 MG eCW1 ([facility]) Amoxicillin 875 MG Oral Tablet amoxicillin (AMOXIL) 87 5 MG tablet amoxicillin (AMOXIL) 875 MG tablet 11/03/2020 12:00:00 AM EDT 875 mg Oral aborted Take 875 mg by mouth 2 (two) times a day [facility] 150 mg 11/03/2020 12:00:00 AM EDT [...] tablet (10 mEq total) by mouth daily [facility] rivaroxaban 20 MG Oral Tablet [Xarelto] XARELTO 20 MG TABS X ARELTO 20 MG TABS 06/22/2020 12:00:00 AM EST active TAKE ONE TABLET BY MOUTH EVERY DAY [facility] tizanidine 2 MG Oral Tablet TIZANIDINE HCL 06/16/2020 12:00:00 AM EST tablet 10 TAKE ONE TABLET BY MOUTH AT BEDTIME NEEDED TAKE ONE TABLET BY MOUTH AT BEDTIME NEEDED SOLD: 06/17/2020 [facility] 10 mg 06/16/2020 12:00:00 AM EST tablet 15 TAKE THREE TABLETS BY MOUTH EVERY DAY TAKE THREE TABLETS BY MOUTH EVERY DAY SOLD: 06/17/2020 [facility] Prednisone 10 MG Oral Tablet PredniSONE 10 MG PredniSONE 10 MG 06/16/2020 12:00:00 AM EST 3.0 {tablets} active P redniSONE 10 MG eCW1 ([facility]) tizanidine 2 MG Oral Tablet Tizanidine HCl 2 MG Tizanidine H Cl 2 MG 06/16/2020 12:00:00 AM EST 1.0 {tablet_as_needed} active Tizanidine HCl 2 MG eCW1 ([facility]) tizanidine 2 MG Oral Tablet Tizanidine HCl 2 MG Tizanidine H Cl 2 MG 06/16/2020 12:00:00 AM EST 1.0 {tablet_as_needed} active Tizanidine HCl 2 MG eCW1 ([facility]) Prednisone 10 MG Oral Tablet PredniSONE 10 MG PredniSONE 10 MG 06/16/2020 12:00:00 AM EST 3.0 {tablets} active P redniSONE 10 MG eCW1 ([facility]) 40 mg 04/27/2020 12:00:00 AM EDT [...] TABLET BY MOUTH EVERY DAY SOLD: 09/23/2020 [facility] Furosemide 20 MG Oral Tablet furosemide (LASIX) 20 MG tablet furosemide (LASIX) 20 MG tablet 04/21/2020 12:00:00 AM EDT activ e TAKE ONE TABLET BY MOUTH EVERY DAY [facility] 25 mg 04/13/2020 12:00:00 AM EDT tablet 45 TAKE ONE-HALF TABLET BY MOUTH EVERY DAY TAKE ONE-HALF TABLET BY MOUTH EVERY DAY SOLD: 04/22/2020 [facility] Metoprolol Tartrate 25 MG Oral Tablet me toprolol tartrate (LOPRESSOR) 25 MG tablet metoprolol tartrate (LOPRESSOR) 25 MG tablet 04/12/2020 12:0 0:00 AM EDT 12.5 mg Oral aborted Take 0.5 tablets (12.5 mg total) by mouth daily [facility] Atenolol 100 MG Oral Tablet ATENOLOL 04/01/2020 12:00:00 AM EDT table t 30 TAKE ONE TABLET BY MOUTH EVERY DAY TAKE ONE TABLET BY MOUTH EVERY DAY SOLD: 04/04/2020 [facility] 10 mEq 12/15/2019 12:00:00 AM EDT tablet,ER particles/cry stals 90 TAKE ONE TABLET BY MOUTH EVERY DAY TAKE ONE TABLET BY MOUTH EVERY DAY SOLD: 06/25/2020 [facility] rivaroxaban 20 MG Oral Tablet rivaroxaban (XARELTO) 20 MG TABS rivaroxaban (XARELTO) 20 MG TABS 12/15/2019 12:00:00 AM EDT 20 mg Oral aborted Take 1 tablet (20 mg total) by mouth daily [facility] Potassium Chloride 10 MEQ Extended Relea se Oral Tablet potassium chloride (K- DUR) 10 MEQ tablet potassium chloride (K-DUR) 10 MEQ tablet 12/15/2019 12 :00:00 AM EDT 10 meq Oral aborted Take 1 t ablet (10 mEq total) by mouth daily [facility] Polyethylene Glycol 400 4 MG/ML / Propyl kathy glycol 3 MG/ML Ophthalmic Solution Polyethyl Glycol-Propyl Glycol (SYSTANE ULTRA) 0.4-0.3 % SOLN Polyethyl Glycol- Propyl Glycol (SYSTANE ULTRA) 0.4-0.3 % SOLN 11/26/2016 12:00:00 AM EDT aborted SYSTANE ULTRA 0.4-0.3 % SOLN [facility] Ascorbic Acid 226 MG / Beta Carotene 143 20 UNT / cuprous oxide 0.8 MG / dl-alpha tocopheryl acetate 200 UNT / Zinc Oxide 34.8 MG Oral Capsule [PreserVision] Multiple Vitamins-Minerals (PRESERVISION AREDS) CAPS Multiple Vitamins-Minerals (PRESERVISION AREDS) CAPS 04/12/2015 12:00:00 AM EDT aborted PRESERVISION AREDS CAPS [facility] tizanidine 2 MG Oral Tablet tiZANidine (ZANAFLEX) 2 MG tablet tiZANidine (ZANAFLEX) 2 MG tablet 2 mg Oral aborted Take 2 mg by mouth as needed [facility] Insurance Providers Payer name Policy type / Coverage type Policy ID Covered alliance party ID Covered alliance party's relationship to lane Policy Lane Plan Information [employer] () Workers Compensation [id number] Self A [id number] MEDICARE [id number] xxxxxxxxxxx [id number] MEDICARE A [id number] Self [id number] H74 MEDICARE [id number] Marie [id number] H74 Medicare [place] Medigap Part B [id number] 2.16.840.1.460600.3.227.99.104.197279.0 Self [id number] [employer] [place] (pr) Medigap Part B [id number] 2.16.840.1.862523.3.227.99.991.74101.0 Self [id number] [employer] Medigap Part B [id number] 2.16.840.1.590149.3.227.99.991.34216.0 Self [id number] [employer] Medicare Commercial [id number] 2.16.840.1.835833.3.227.99.991.23120.0 Self [id number] [employer] Medigap Part B [id number] 2.16.840.1.327761.3.227.99.991.12480.0 Self [id number] [employer] Medicare Medigap Part B [id number] 2.16.840.1.192711.3.227.99.991.04807.0 Self [id number] [employer] Medigap Part B [id number] 2.16.840.1.399424.3.227.99.991.72714.0 Self [id number] [employer] Medigap Part B [id number] 2.16.840.1.594015.3.227.99.991.61116.0 Self [id number] [employer] Medigap Part B [id number] 2.16.840.1.858471.3.227.99.991.98607.0 Self [id number] [employer] Medigap Part B [id number] 2.16.840.1.466827.3.227.99.991.65197.0 Self [id number] MEDICARE COMPLETE [id number] [facility] [id number] [facility] [id number] [facility] [id number] xxxxxxxxxxx [id number] ANSI-Medicare Part B [id number] ANSI-Commercial [id number] ANSI-Commercial [id number] ANSI-Medicare Part B [id number] ANSI-Medicare Part B [id number] ANSI-Medicare Part B [id number] ANSI-Medicare Part B [id number] ANSI-Commercial [id number] [facility] Part B [id number] .1.430964.3.227.99.6619.20964.0 Self [id number] Medicare [place] Medicare Primary [id number] [id number]13.0 Self [id number] ANSI-Medicare Part B [id number] ANSI-Commercial [id number] ANSI-Medicare Part B [id number] ANSI-Medicare Part B [id number] ANSI-Medicare Part B [id number] ANSI-Commercial [id number] ANSI-Medicare Part B [id number] ANSI-Medicare Part B [id number] ANSI-Commercial [id number] ANSI-Medicare Part B [id number] ANSI-Medicare Part B [id number] ANSI-Commercial [id number] ANSI-Medicare Part B [id number] ANSI-Commercial [id number]-7r8t-[id number] ANSI-Medicare Part B [id number] [facility] [id number] ..1.560545.3.227.99.8646. 05303.0 Self [id number] [place] Medicare Primary [id number] ..1.233120.3.227.99.8646.16175.0 Self [id number] [facility] Healthcare [facility] B [id number] .1.214948.3.227.99.104.468217.0 Self [id number] Medicare [facility] Medicare Primary [id number] ..1.433972.3.227.99.104.234759.0 Self [id number] [facility] Commercial [id number] ..1.339970.3.227.99.936.99578.0 Self [id number] Medicare [facility] Medigap Part B [id number] ..1.289463.3.227.99 .936.59306.0 Self [id number] Medicare Medicare Primary [id number] 2.16.840.1.331557.3.227. 99.936.33295.0 Self [id number] [facility] Insurance [facility] Part B [id number] 2.16.840.1.65889 3.3.227.99.936.72990.0 Self [id number] ANSI-Medicare Part B [id number] ANSI-Medicare Part B [id number] ANSI-Commercial [id number] ANSI-Medicare Part B [id number] ANSI-Medicare Part B [id number] ANSI-Commercial [id number] MEDICARE C [id number] S [id number] A ANSI-Commercial [id number] ANSI-Medicare Part B [id number] [facility]-Medicare Part B [id number] ANSI-Commercial [id number] ANSI-Medicare Part B [id number] ANSI-Medicare Part B [id number]-[id number] MEDICARE [id number] [facility] [id number] .1.881019.3.227.99.8646. 46517.0 Self [id number] Medicare [facility] Medicare Primary [id number] .1.617410.3.227.99.8646.74432.0 Self [id number] [employer] [id number] .1.313962.3.227.99.936.96032.0 Self [id number] Medicare Dme Medigap Part B [id number] .1.745027.3.227.99 .936.48622.0 Self [id number] Medicare Medicare Primary [id number] .1.708179.3.227. 99.936.68205.0 Self [id number] [facility] Healthcare [facility] Part B [id number] .1.697708.3.227.99.991.79523.0 Self [id number] Medicare [place] Medicare Primary [id number] 2.16.840.1.966726.3.227.99.991.07635.0 Self [id number] Secure [facility] Medigap Part B [id number] 2.16.840.1.377360.3.227 .99.991.61518.0 Self [id number] [employer] [id number] 2.16.840.1.741335.3.227.99.936.86349.0 Self [id number] Medicare Dme Medigap Part B [id number] 2.16.840.1.695932.3.227.99 .936.60738.0 Self [id number] Medicare Medicare Primary [id number] 2.16.840.1.660039.3.227. 99.936.63760.0 Self [id number] [employer] [id number] 2.16840.1.793484.3.227.99.936.53949.0 Self [id number] Medicare Dme Medigap Part B [id number] 2.16.840.1.109083.3.227.99 .936.12020.0 Self [id number] Medicare Medicare Primary [id number] 2.16.840.1.635030.3.227. 99.936.80342.0 Self [id number] [facility] [id number] 2.16.840.1.548896.3.227.99.104.607419.0 Self [id number] Medicare [place] Medicare Primary [id number] 2.16.840.1.087569.3.227.99.104.748792.0 Self [id number] [employer] [id number] 2.16.840.1.112312.3.227.99.936.32335.0 Self [id number] Medicare Medicare Primary [id number] 2.16840.1.552578.3.227. 99.936.06230.0 Self [id number] MEDICARE [id number] SP [id number] H74 MEDICARE COMPLETE-UHC O [id number] S [id number] MEDICARE COMPLETE [id number] SP [id number] MEDICARE COMPLETE [id number] SP [id number] [place] [facility] Commercial [id number] 2.16.840.1.385698.3.227.99.991.112707.0 Self [id number] MEDICARE COMPLETE-UHC O [id number] S [id number] [facility] Commercial [id number] 2.16.840.1.645745.3.227.99.936.48570.0 Self [id number] [facility] [id number] SP [id number] MEDICARE C [id number] S [id number] AARP O [id number] S [id number] 311 [facility] [id number] S [id number] [facility] [id number] S [id number] MEDICARE [place] [id number] S [id number] [facility] MEDICARE [id number] S [id number] [facility] [id number] S [id number] [facility] OPTIONS [id number] S [id number] [facility] MEDICARE [id number] S [id number] [facility] PART B [id number] S [id number] ANSI-Commercial [id number] ANS-Medicare Part B [id number] ANSI-Medicare Part B [id number] [facility] Part B [id number] Self [id number] Medicare [place] Primary [id number] Self [id number] ANSI-Medicare Part B [id number] Problems, Conditions, and Diagnoses Code Display Name Description Problem Type Effective Dates Data Source(s) Z01.818 Encounter for other preprocedural examin ation Encounter for other preprocedural examin Diagnosis 05/18/2021 08:07:17 AM EDT [facility] R07.9 Chest pain, unspecified Chest pain, unspecified Diagno sis 05/18/2021 08:07:17 AM EDT [facility] I10 Essential (primary) hypertension Essential (primary) h ypertension Diagnosis 05/18/2021 08:07:17 AM EDT [facility] I50.31 Acute diastolic (congestive) heart failu re Acute diastolic (congestive) heart failu Diagnosis 05/18/2021 08:07:17 AM EDT [facility] I71.2 Thoracic aortic aneurysm, without ruptur e Thoracic aortic aneurysm, without ruptur Diagnosis 05/18/2021 08:07:17 AM EDT [facility] Z68.36 Body mass index (BMI) 36.0-36.9, adult B lianet mass index (BMI) 36.0-36.9, adult Diagnosis 05/18/2021 08:07:17 AM EDT [facility] E66.09 Other obesity due to excess calories Oth er obesity due to excess calories Diagnosis 05/18/2021 08:07:17 AM EDT [facility] R06.02 Shortness of breath Shortness of breath Diagnosis 1 07/18/2020 08:07:17 AM EDT [facility] I48.0 Paroxysmal atrial fibrillation Paroxysmal atrial fibri llation Diagnosis 05/18/2021 08:07:17 AM EDT [facility] I49.5 Sick sinus syndrome Sick sinus syndrome Diagnosis 1 07/18/2020 08:07:17 AM EDT [facility] 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 Diagnosi s 04/26/2021 02:17:00 PM EDT [facility] E04.9 Nontoxic goiter, unspecified Nontoxic goiter, unspecif ied Diagnosis 04/26/2021 02:17:00 PM EDT [facility] Z01.818 Preop examination Preop examination [id number] 05/18/2021 12:00:00 AM EDT [facility] I50.31 Acute diastolic congestive heart failure Acute diastolic congestive heart failure [id number] 05/18/2021 12:00:00 AM EDT [facility] 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 Problem 04/18/2021 12:00:00 AM EDT eCW1 ([facility]) G56.02 [id number] Carpal tunnel syndrome, left Problem 04/18/2021 12:00:00 AM EDT eCW1 ([facility]) I71.2 [id number] Ascending aortic aneurysm Problem 04/18/2021 12:00:00 AM EDT eCW1 ([facility]) Z95.0 [id number] S/P cardiac pacemaker procedure Problem 02/09/2021 12:00:00 AM EDT eCW1 ([facility]) R06.09 [id number] Chronic dyspnea Problem 09/16/2020 12:00:00 AM EST eCW1 ([facility]) I11.9 [id number] Hypertensive heart disease without heart failure Problem 08/10/2020 12:00:00 AM EST eCW1 ([facility]) M79.676 Pain in limb Pain in limb Problem 08/09/2020 12:00:00 A M EST [facility] ([facility] [id number] Cardiac pacemaker in situ Cardiac pacemaker in situ Pr oblem 06/06/2020 12:00:00 AM EST [facility] ([facility] I49.5 SSS (sick sinus syndrome) SSS (sick sinus syndrome) [id number] 05/20/2020 12:00:00 AM EST [facility] [id number] Sinus node dysfunction Sinus node dysfunction Problem 05/19/2020 12:00:00 AM EST [facility] ([facility] Cardiac Catheterization [facility]so [facility]) [id number] Paroxysmal atrial fibrillation Paroxysmal atrial fibri llation Problem 05/19/2020 12:00:00 AM EST [facility] ([facility] Cardiac Catheterization [facility]) E05.90 [id number] Hyperthyroidism Problem 04/22/2020 12:00:00 AM EDT eCW1 ([facility]) I49.5 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 Tachy-julio cesar syndrome Problem 04/22/2020 12:0 0:00 AM EDT eCW1 ([facility]) I48.92 [id number] Paroxysmal atrial flutter Problem 04/22/2020 12:00:00 AM EDT eCW1 ([facility]) Surgeries/Procedures Procedure Description Date Indications Data Source(s) ECG ROUTINE ECG W/LEAST 12 LDS W/I&R <td>POCT AMB EKG</td><td>Routine</td><td>05/18/2021 9:20 AM EDT</td><td> Paroxysmal atrial fibrillation</td><td> </td> 05/18/2021 09:20:00 AM EDT Paroxysmal atrial fibrillation [facility] Paroxysmal atrial fibrillation BLOOD COUNT COMPLETE AUTO&AUTO DIFRNTL WBC COUNT <td>C BC AND DIFFERENTIAL</td><td>Routine</td><td>05/11/2021</td><td></td><td> </td> 05/11/2021 12:00:00 AM EDT [facility] DRUG SCREEN QUALITATIVE DIGOXIN <td>DIGOXIN LEVEL</td><td>Routine</td><td>05/11/2021</td><td></td><td> </td> 05/11/2021 12:00:00 AM EDT [facility] BASIC METABOLIC PANEL CALCIUM TOTAL <td>BASIC METABOLI C PANEL</td><td>Routine</td><td>05/11/2021</td><td></td><td> </td> 05/11/2021 12:00:00 AM EDT [facility] BASIC METABOLIC PANEL CALCIUM TOTAL <td>BASIC METABOLI C PANEL</td><td>Routine</td><td>05/09/2021</td><td></td><td> </td> 05/09/2021 12:00:00 AM EDT [facility] BASIC METABOLIC PANEL CALCIUM TOTAL <td>BASIC METABOLI C PANEL</td><td>Routine</td><td>05/08/2021</td><td></td><td> </td> 05/08/2021 12:00:00 AM T [facility] Laryngoscopy Direct Biopsy W/Operating Microscope 04/20/2021 12:00:00 AM [facility] ([facility], ) Thyroid Lobectomy Total Unilateral 04/20/2021 12:00:00 AM [facility] ([facility], ) THYROID STIMULATING HORMONE TSH <td>TSH</td><td>Routine</td><td>04/17/2021</td><td></td><td> </td> 04/17/2021 12:00:00 AM EDT [facility] HEPATIC FUNCTION PANEL <td>HEPATIC FUNCTION PANEL</td><td>Routine</td><td>04/17/2021</td><td></td><td> </td> 04/17/2021 12:00:00 AM EDT [facility] BASIC METABOLIC PANEL CALCIUM TOTAL <td>BASIC METABOLI C PANEL</td><td>Routine</td><td>04/17/2021</td><td></td><td> </td> 04/17/2021 12:00:00 AM EDT [facility] EXCISION NAIL MATRIX PERMANENT REMOVAL 03/30/2021 12:0 0:00 AM EDT [facility] ([facility] OFFICE OUTPATIENT VISIT 10 MINUTES 03/03/2021 12:00:00 AM EDT [facility] ([facility] LARYNGOSCOPY FLEXIBLE FIBEROPTIC DIAGNOSTIC 01/30/2021 12:00:00 AM EDT [facility] ([facility], ) OFFICE OUTPATIENT VISIT 25 MINUTES 01/30/2021 12:00:00 AM EDT [facility] ([facility], ) Med: Derm 1% Lidocaine with Epinephrine Injection Intr adermally to marked areas 01/20/2021 12:00:00 AM EDT [facility]C1 ([facility]) DEBRIDEMENT NAIL ANY METHOD /> 12/23/2020 12:00:00 AM EDT [facility] ([facility] OFFICE OUTPATIENT VISIT 10 MINUTES 12/23/2020 12:00:00 AM EDT [facility] ([facility] OFFICE OUTPATIENT VISIT 15 MINUTES 12/23/2020 12:00:00 AM EDT [facility] ([facility], ) OFFICE OUTPATIENT VISIT 25 MINUTES 12/19/2020 12:00:00 AM EDT [facility] ([facility], ) Bronchospasm Evaluation 12/09/2020 12:00:00 AM EDT [facility] ([facility], ) Plethysmography Determination Lung Volumes & Per Airway Resi st 12/09/2020 12:00:00 AM EDT [facility] ([facility] ) DIFFUSING CAPACITY 12/09/2020 12:00:00 AM EDT [facility] ([facility], ) ECG ROUTINE ECG W/LEAST 12 LDS W/I&R <td>POCT AMB EKG</td><td>Routine</td><td>11/21/2020 5:34 PM EDT</td><td> Shortness of breath</td><td> </td> 11/21/2020 05:34:00 PM EDT Shortness of breath [facility] Shortness of breath BLOOD COUNT COMPLETE AUTOMATED <td>CBC</td><td>Routine</td><td>11/21/2020</td><td> Shortness of breath</td><td> </td> 11/21/2020 12:00:00 AM EDT Shortness of breath [facility] Shortness of breath Spirometry 11/15/2020 12:00:00 AM EDT Veronica RODRIGUE[facility] ([facility], ) OFFICE OUTPATIENT VISIT 25 MINUTES 11/15/2020 12:00:00 AM EDT [facility] ([facility], ) POCT AMB EKG <td>POCT AMB EKG</td><td>Rou monica</td><td>11/08/2020 7:22 PM EDT</td><td> Paroxysmal atrial fibrillation</td><td> </td> 11/08/2020 07:22:00 PM EDT Paroxysmal atrial fibrillation [facility] Paroxysmal atrial fibrillation POCT AMB EKG <td>POCT AMB EKG</td><td>Rou monica</td><td>10/25/2020 5:52 PM EDT</td><td> Paroxysmal atrial fibrillation</td><td> </td> 10/25/2020 09:52:00 PM EDT Paroxysmal atrial fibrillation [facility] Paroxysmal atrial fibrillation DEBRIDEMENT NAIL ANY METHOD 6/> 10/07/2020 12:00:00 AM EDT [facility] ([facility] THYROID STIMULATING HORMONE TSH <td>TSH</td><td>Routine</td><td>08/10/2020</td><td></td><td> </td> 08/10/2020 12:00:00 AM EST [facility] BASIC METABOLIC PANEL CALCIUM TOTAL <td>BASIC METABOLI C PANEL</td><td>Routine</td><td>08/10/2020</td><td></td><td> </td> 08/10/2020 12:00:00 AM EST [facility] DEBRIDEMENT NAIL ANY METHOD 07/29/2020 12:00:00 AM EST [facility] ([facility] ECG ROUTINE ECG W/LEAST 12 LDS W/I&R <td>POCT AMB EKG</td><td>Routine</td><td>06/22/2020 3:00 PM EST</td><td> Paroxysmal atrial fibrillation</td><td> </td> 06/22/2020 08:00:00 PM EST Paroxysmal atrial fibrillation [facility] PM Programming Dual 06/06/2020 12:00:00 AM EST [facility] ([facility]) BLOOD COUNT COMPLETE AUTOMATED <td>CBC</td><td>Routine</td><td>05/24/2020</td><td></td><td> </td> 05/24/2020 12:00:00 AM EST [facility] Electrocardiogram Complete 05/19/2020 12:00:00 AM EST [facility] ([facility]) LARYNGOSCOPY FLEXIBLE FIBEROPTIC DIAGNOSTIC 05/02/2020 12:00:00 AM EDT [facility] ([facility], ) Results ID Date Data Source [id number] 05/08/2021 04:56:00 PM EDT [facility] Name Value Range Interpretation Code Description Data Maggie rce(s) Supporting Document(s) SARS-CoV-2 (COVID 19) NEGATIVE - SARS-CoV-2 (COVID19) [facility] This lab was ordered by [facility] a nd reported by [facility]. ID Date Data Source [id number] 04/26/2021 02:18:00 PM EDT [facility] ([facility], ) Name Value Range Interpretation Code Description Data Maggie rce(s) Supporting Document(s) Surgical Pathology Consult Laboratory test result [facility] ([facility], ) Surgical Pathology Report Name: BERNY NAYAK Collection Date: 04/26/2021 00:00 Received Date: 04/26/2021 14:20 Physician(s): GREGORY NICK MD ADJAPONG, OPOKU, MD Specimen(s) Received A: Material received for consultation, GD, [id number], [facility] Clinical History 80-year-old woman with thyroid goiter an d left false vocal cord lesion. Diagnostic consultation. Diagnosis LARYNX, LEFT FALSE VOCAL CORD, BIOPSY ([id number], 04/20/21): SEVERE SQUAMOUS DYSPLASIA. (SEE MICROSCOPIC DESCRIPTION). 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 [...] Adenomatoid nodule(s) or nodular follicular disease [facility] August 2019 Annual Release Electronically Signed By Rios Riley M.D., Attending Pathologist 04/27/2021 15:29:28 Gross Description Received from [facility] in [place], [place] are 7 H and E stained slides and 6 paraffin blocks, labeled [id number] (A, B1, B2, B3, B4, B5), with [...] developed and their performance characteristics determined by [facility] Pathology department. They have not been cleared or approved by the [place] Food and Drug Administration. The FDA has determined that such clearance or approval is not necessary. ID Date Data Source [id number] 04/27/2021 03:29:00 PM [facility] Surgical Pathology ReportName: THIERRY NAYAKMRN: [id number] Number: [id number] Date: 04/26/2021 00:00Received Date: 04/26/2021 14:20Physician(s): GREGORY NICK MD ADJAPONG, OPOKU, MDSpecimeshira(s) ReceivedA: Material received for consultation, [facility], [id number], [id number] woman with thyroid goiter and left false vocal cord lesion. Diagnostic consultation.DiagnosisLARYNX, LEFT FALSE VOCAL CORD, BIOPSY ([id number], 04/20/21): SEVERESQUAMOUS DYSPLASIA. (SEE MICROSCOPIC DESCRIPTION).B) THYROID, RIGHT LOBE, LOBECTOMY ([id number], 04/30/17):ENCAPSULATED/WELL-CIRCUMSCRIBED FOLLICULAR VARIANT OF PAPILLARY CARCINOMA.NODULAR HYPERPLASIA. [...] Electronically Signed By Rios Riley M.D., Attending Dontoqrnhre50/14/2021 15:29:28 Gross DescriptionReceived from [facility] in [place], [place] are 7 H and Estained slides and 6 paraffin blocks, labeled [id number] (A, B1, B2, B3, B4,B5), with the [...] developed and their performance characteristics determined by [facility] Pathology department. They have not been cleared or approved by the USFood and Drug Administration. The FDA has determined that such clearanceor approval is not necessary. Name Value Range Interpretation Code Description Data Maggie rce(s) Supporting Document(s) ID Date Data Source [id number] 01/09/2021 07:19:00 AM EDT [facility] ([facility]) Name Value Range Interpretation Code Description Data Maggie rce(s) Supporting Document(s) Microscopic observation [Identifier] in Unspecified specimen by Non- gynecological cytology method Laboratory test result [facility] ([facility]) SPECIMEN: FNA Left lower isth mus/labeled left thyroid SPECIMEN ADEQUACY: Satisfactory for evaluation CATEGORIZATION: Benign DESCRIPTIONS: Scattered follicular cells noted in a background of hemosiderin laden macrophages, and scattered lymphocytes. COMMENTS: 01/10/2021942 Signed BRADLEY CRISTINA(ASCP) 01/10/2021 0943 (Prelim) Signed KINGA DAVIS MD 01/10/2021 1356 ID Date Data Source [id number] 01/09/2021 07:18:00 AM EDT [facility] ([facility]) Name Value Range Interpretation Code Description Data Maggie rce(s) Supporting Document(s) Microscopic observation [Identifier] in Unspecified specimen by Non- gynecological cytology method Laboratory test result [facility] ([facility]) SPECIMEN: FNA Right middle is thmus/labeled right thyroid Specimen receiced in Cytolyt (light pink)/AFIRMA SPECIMEN ADEQUACY: Satisfactory for evaluation CATEGORIZATION: Benign DESCRIPTIONS: Rare follicualr groups noted in a background of hemosiderin laden macrophages and scattered lymphocytes. COMMENTS: 01/10/2021938 Signed BRADLEY CRISTINA(ASCP) 01/10/2021 0936 (Prelim) Signed KINGA DAVIS MD 01/10/2021 1356 ID Date Data Source [id number] 01/09/2021 07:15:00 AM EDT [facility] ([facility]) Name Value Range Interpretation Code Description Data Maggie rce(s) Supporting Document(s) Microscopic observation [Identifier] in Unspecified specimen by Non- gynecological cytology method Laboratory test result [facility] ([facility]) SPECIMEN: FNA Right middle is thmus/labeled right thyroid Cyotlyt (light pink) and AFIRMA brush received SPECIMEN ADEQUACY: Satisfactory for evaluation CATEGORIZATION: Benign DESCRIPTIONS: Reactive follicular cells noted in a backgound of scattered lymphocytes. COMMENTS: 01/10/2021 - 47 Signed BRADLEY CRISTINA(ASCP) 01/10/2021 0948 (Prelim) Signed KINGA DAVIS MD 01/10/2021 1356 ID Date Data Source [id number] 12/30/2020 01:58:00 PM EDT [facility] ([facility]) Name Value Range Interpretation Code Description Data Maggie rce(s) Supporting Document(s) Parathyrin.intact [Mass/volume] in Serum or Plasma 70.0 pg/mL 18.5-88.0 Normal (applies to non-numeric results) [facility] ([facility]) ID Date Data Source [id number] 12/30/2020 01:58:00 PM EDT [facility] ([facility]) Name Value Range Interpretation Code Description Data Maggie rce(s) Supporting Document(s) Thyroglobulin Quantitative 1417.7 ng/mL 1.5-38.5 Above high normal [facility] ([facility]) Specimen was diluted in order to [...] 0.1 ng/mL . Thyroglobulin measured by Dashawn Carney Immunometric Assay Performed at: - [facility] [address] [id number] Product Development Specialist: Ariana Hutchison MD, Phone: [phone] Thryoglobulin Antibodies ([facility]) Laboratory test result 0.0-0.9 Normal (applies to non-numeric results) [facility] ([facility] ) Thyroglobulin Antibody measured by [employer] ID Date Data Source [id number] 12/30/2020 01:58:00 PM EDT [facility] ([facility]) Name Value Range Interpretation Code Description Data Maggie rce(s) Supporting Document(s) Triiodothyronine (T3) Free [Mass/volume] in Serum or Plasma 3.1 pg/mL 2.2-4.0 Normal (applies to non-numeric results) [facility] ([facility]) Calcium.ionized [Mass/volume] in Serum o r Plasma by Ion-selective membrane electrode (ISE) 4.8 mg/dL 4.5-5.3 Normal (applies to non-numeric results ) [facility] ([facility]) ID Date Data Source [id number] 12/30/2020 01:58:00 PM EDT [facility] ([facility]) Name Value Range Interpretation Code Description Data Maggie rce(s) Supporting Document(s) Free T4 0.79 ng/dL 0.76-1.46 Normal (applies to non-numeric resul ts) [facility] ([facility]) Thyroid Stimulating Hormone 0.295 uIU/ML 0.358-3.740 Below low normal [facility] ([facility]) ID Date Data Source [id number] 12/09/2020 02:58:00 PM EDT [facility] ([facility]) Name Value Range Interpretation Code Description Data Maggie rce(s) Supporting Document(s) Misc Laboratory test result [facility] ([facility]) ID Date Data Source [id number] 12/02/2020 08:12:23 AM EDT [facility] Name Value Range Interpretation Code Description Data Maggie rce(s) Supporting Document(s) &PDF [facility] XQPUXt5nRdZVUdFs23/IGCqoWEAfs2UpFHosNJp3AYlqRQTmH2DwlRfmXDBSO0ZXEWvSWJLrTjBbAXSd waW [file] ICAgICAgICAgICAgICAgICAgICAgICAgICAgICAgIC AgICAgICAgICAgICAgICAgDQogICAgICAgICAgICAgICAgICAgICAgICAgICAgICAgICAgICAgICAgIC AgICAgICAgICAgICAgICAgICAgICAgICAgICAgICAgICAgICAgICAgICAgICAgICAgICAgICAgICAgDQ ogICAgICAgICAgICAgICAgICAgICAgICAgICAgICAg ICAgICAgICAgICAgICAgICAgICAgICAgICAgICAgICAgICAgICAgICAgICAgICAgICAgICAgICAgICAg ICAgICAgICAgDQogICAgICAgICAgICAgICAgICAgICAgICAgICAgICAgICAgICAgICAgICAgICAgICAg ICAgICAgICAgICAgICAgICAgICAgICAgICAgICAgIC AgICAgICAgICAgICAgICAgICAgDQogICAgICAgICAgICAgICAgICAgICAgICAgICAgICAgICAgICAgIC AgICAgICAgICAgICAgICAgICAgICAgICAgICAgICAgICAgICAgICAgICAgICAgICAgICAgICAgICAgIC AgDQogICAgICAgICAgICAgICAgICAgICAgICAgICAg ICAgICAgICAgICAgICAgICAgICAgICAgICAgICAgICAgICAgICAgICAgICAgICAgICAgICAgICAgICAg ICAgICAgICAgICAgDQogICAgICAgICAgICAgICAgICAgICAgICAgICAgICAgICAgICAgICAgICAgICAg ICAgICAgICAgICAgICAgICAgICAgICAgICAgICAgIC AgICAgICAgICAgICAgICAgICAgICAgDQogICAgICAgICAgICAgICAgICAgICAgICAgICAgICAgICAgIC AgICAgICAgICAgICAgICAgICAgICAgICAgICAgICAgICAgICAgICAgICAgICAgICAgICAgICAgICAgIC AgICAgDQogICAgICAgICAgICAgICAgICAgICAgICAg ICAgICAgICAgICAgICAgICAgICAgICAgICAgICAgICAgICAgICAgICAgICAgICAgICAgICAgICAgICAg ICAgICAgICAgICAgICAgDQogICAgICAgICAgICAgICAgICAgICAgICAgICAgICAgICAgICAgICAgICAg ICAgICAgICAgICAgICAgICAgICAgICAgICAgICAgIC CbEMNiVFMrHJCsVNXoQJOwHHVmSCZiQVZwPBs1A8voWHIeWBHuRN1aEFv7Wj9+KQxGGbPlLIW0etFbhN 9NGM2ls8RuNKmlEVTdn0KzVEl1NW8CNMKlYDlaVU1LUSkqdz3EWXNoBEXooQTSi2zwDmCvVIS1LDHoHx duOB4EOYZxT3eeebMqPQHqEPKGZScvVBSBNI0TWxAh W9DqlB62RTYXGe7+MKxlzyDwKuyUUuQ3QRXsu7MfXLv2DF0MVNSoJKhgTN3DGQFlwX4hHTlmIJ0DKtNt RzUoXBPCThGgS74akHEfOOl8H0ZwWqUgSWNbHaxiCHRwNXrkNbCeMFFiViPqKYeuHL6+ID4+PXbkIJ2P JNassfEmYLBhNo6HRLPlJFA7EZMseLAwXoGmIPKMRE zaJL3EwZUfVJV9pB3bFKaqJRNoHQTmY3cFHpKhlVhfLU33oTdukfGaiIAjRYu+Jp4XJN4mg8MjMJq1wk LaBYsiUCT0IYgpOZQxBBDqEUQyHPL8GQD0XUNYMdEgTHDvCSUrZAdmYWVdBYOddt5PVBVjEGTkGkU0RI DcJQBhUDZwMOcvLJTxGJJ9VLe3SYLwDJKeHV3TVoFu WHLwBBRaGVdeCLGzCBAfge9DTTWnPAXeTIWuJwXkYAOmKYUrJApmGHWfUHL9UmWiBRHqWSOsYH0UQgPy NHGsPQfsFfDaOVVaFNPmqb1ZYDBqFMZdRwG0TDCrPKDxNEWeLYkgOUTgNJF0IYP2POJfWHByEY1VHzOi FKVrZQc9UsFfQFHlLJNhox4VBSEiUCVnDZeiNmAqGE NiBJKhOPztXKIyMEK2ClK8XWAeEADoZR1IShCfHRBoBMl8WizpGCUlMXPjmj0ZNQGyGKMzQBY6XJMmEF LzTTIqCYyjEXQjNPMyHMFeTAVxBHRtZH1AIjYiDAIcIGAbVIGcODBiOFSxef2BKQIgICHdKHR2DIRjAU KqNXHhFVcuFQGqWYVaBZK6JQFdURXcST8WDwUeBWYg NRH0CVjxJGVlLQCoch1FJJDaFPWfSfz9XiXvNXOlJXZwIZbeYKSfDRVpTFVqPAGrDCSnNV7NVpNcNSYm GPZ7CwOzMKWjHGOrjs3EOAYvLCKqZfx2NVJhVDOfLOSbAEfoBDDiJUF0MES2APWuGMIeZD1IMnInPHLj TWPbNtRrIFMjGQVkbj2ZWADwPGOcTCA5UEHuAABoNS LxZGspNDLbDEN4TXMmYBYaVGMwEG9IBlLkFENoAVWaPGDdHSYuTTVzwo5BVWOrRUJcPLFjJqLmJSUuWD OvCEocPUUaGUB7HWM3NHFgXWRuAY5IIvVmAIKrYXV3LhVoDWKlBLTvqu4XFGJmUQBjElPlATPvYMLqWH QrKYmcNXXpFMA9DyZ5LDYmJQNdVI7LChXjYUNgSXvf QBTeVXEzNWFpsx3DyPPqnPngwi2AETaUGf6WlBdfNXL7BNxvJm4gkJTeITRsVIYFVq4PjaGdUSRbQAFM SIsgCLLjNGsmCkLjEbTqXUIiLRa3ZkTwJsVlBIPuCGSzUUY6YLN7KlF0JWIbIhOdAHK2O9O7Xqv2BUYw KCH2M2GuGaY5DMe3QER+VJ5cQWa+Sk9Ms4HdqzO9utLnPEnmHKD8VO4LFNTUG9ONDt== ID Date Data Source [id number] 11/15/2020 12:57:00 PM EDT [facility] ([facility]) Name Value Range Interpretation Code Description Data Maggie rce(s) Supporting Document(s) PDFReport Laboratory test result [facility] ([facility]) FVC-Pre 1.45 L [facility] ([facility]) FVC-%Pred-Pre 54 L [facility] ([facility]) FVC-Pred 2.65 L [facility] ([facility]) FVC-LLN 1.93 L [facility] ([facility]) Fev1-Pred 1.97 L [facility] ([facility]) Fev1-Pre 1.26 L [facility] ([facility]) Fev1-%Pred-Pre 64 L [facility] ([facility]) Fev1-LLN 1.36 L [facility] ([facility]) Fev6-Pred 2.50 L [facility] ([facility], ) Fev6-Pre 1.45 L [facility] ([facility]) Fev6-%Pred-Pre 58 L [facility] ([facility]) Zup1csp-Xko 87 % [facility] ([facility]) Fev6-LLN 1.80 L [facility] ([facility]) Vwy4xbm-Cnxb 73 % [facility] ([facility]) Mmg8hcg-Ibdc 94 % [facility] ([facility]) Kkj6dil-CPC 64 % [facility] ([facility]) Giw6pen-%Pred-Pre 118 % [facility] ([facility]) Vbw0wwr-%Pred-Pre 105 % [facility] ([facility]) FEFMax-Pred 4.75 L/E/sec [facility] ([facility]) Zxt6qqm-Ypo 100 % [facility] ([facility]) FEFMax-LLN 2.98 L/E/sec [facility] ([facility]) FEFMax-Pre 5.30 L/E/sec [facility] ([facility]) FEFMax-%Pred-Pre 111 L/E/sec [facility] ([facility]) Rty4926-%Pred-Pre 123 L/E/sec [facility] ([facility]) Eht6502-JHW 0.08 L/E/sec [facility] ([facility]) Mwo7127-Raor 1.36 L/E/sec [facility] ([facility]) Jav9568-Oaq 1.69 L/E/sec [facility] ([facility]) ExpTime-Pre 5.89 sec [facility] ([facility]) Cec0ada7-Qodk 77 % [facility] ([facility]) Jfc9dqs5-Cuw 87 % [facility] ([facility]) Qkq2aat7-CXW 68 % [facility] ([facility] ) Rsb0yza9-%Pred-Pre 112 % [facility] ([facility] ) ID Date Data Source [id number] 11/09/2020 08:27:54 PM EDT [facility] Name Value Range Interpretation Code Description Data Maggie rce(s) Supporting Document(s) FREE THYROXINE @ 0.99 ng/dL (0.76-1.46) [facility] ID Date Data Source KAISER CHEST 2 VIEW 11/03/2020 12:00:00 AM EDT eCW1 ([facility]) Name Value Range Interpretation Code Description Data Maggie rce(s) Supporting Document(s) Laboratory studies (set) KAISER CHEST 2 VIEW eCW1 ([facility]) ID Date Data Source [id number] 09/30/2020 11:23:23 AM EDT [facility] Name Value Range Interpretation Code Description Data Maggie rce(s) Supporting Document(s) &PDF [facility] LAZSRb2iBlSARkDn22/IUVyjNNVrv2OqYPtvWTb7MJniZXAuD8KqoAnsZQBCC7GOUMiNHHVmTdJgTFDm waW [file] ICAgICAgICAgICAgICAgICAgICAgICAgICAgICAgICAgICAgICAgICAgICAgICAgICAgICAgICAgICAg LRCdUIWuYQYsWN9DTYZgJBKlAULwNTEhUIXoHHWfPJ AgICAgICAgICAgICAgICAgICAgICAgICAgICAgICAgICAgICAgICAgICAgICAgICAgICAgICAgICAgIC GbZLTvPMQdVXMjHRDsZYCuMRIcRL7QUYYpHLXkMGYvWWAiQATeMSUaHXUhETJwLLPhDNOxRQTkYOMnSX AgICAgICAgICAgICAgICAgICAgICAgICAgICAgICAg LKNzNUOpHTXpMWUyZGGxYPAdKVNtUAFsAWAeUSRaLA3FEYPuBSOcZGViHRTiMOEoUMXcQMZyMFOrMVOz ICAgICAgICAgICAgICAgICAgICAgICAgICAgICAgICAgICAgICAgICAgICAgICAgICAgICAgICAgICAg GRPxWCOeUALdVNNxLE0GAUBbITCwVZHyXFOgLMAcAD AgICAgICAgICAgICAgICAgICAgICAgICAgICAgICAgICAgICAgICAgICAgICAgICAgICAgICAgICAgIC OlWEWiSYPcILIsIRQwBQGyGXErPKFrXJ7WBBXqKGPsELFzLQHbAVBtFQYvBYZxTRVbGJGfWDIiTPTtQW AgICAgICAgICAgICAgICAgICAgICAgICAgICAgICAg TJUkBFFpSOCcNQBbWZMxZXMjGVMsGWNuKEDwDGWsRTLwBI5UFICxUZGuMFDvZHGjYURpHHVoNYBlLHJa ICAgICAgICAgICAgICAgICAgICAgICAgICAgICAgICAgICAgICAgICAgICAgICAgICAgICAgICAgICAg SVXdOYDdGTKqDSVmGJBuYE2RENNhHHKdVZByJBXrII AgICAgICAgICAgICAgICAgICAgICAgICAgICAgICAgICAgICAgICAgICAgICAgICAgICAgICAgICAgIC DcCYWfOMTkYKBlEUPyBSYkKGBoIFBjGDIeQA4AUDVmRMHwODLaZWTrOSDmWMNcUBKxURTdOJSuPSIbQD AgICAgICAgICAgICAgICAgICAgICAgICAgICAgICAg GGBnSNFoUHZwQYFbMBUeNUCsQQWiBBUeDOQnWVHjJKDzFWVnNG5XHLOrKQYfHMNmARQsFACzZCZoGXUx ICAgICAgICAgICAgICAgICAgICAgICAgICAgICAgICAgICAgICAgICAgICAgICAgICAgICAgICAgICAg QJLcFPHsZZCaEHJbDDOlWNFiRI1LSE21tTCyg0S1SZ RyPB8pgfq/Gj3GNVlugfOwkFDmWI2LNuKbLE5ktn1CBlLuZG0fca8HJFkYSzLxW6S1xOFxHCOqKQKWWz PbP01mWLmcQo48QPgzXHFfZnYbPRi2Mc1LYgMiC5vcWBGcBoX4IBReIgCeOXzoAH3Lz0KntDNfXSe+Pg 1WOC9bx5VcDVqjQJQkJQ4fyb3WTIbWAzKoE2A8nIAv E7L9PZqrVl8VPHWdPHNgWKdyOPIMWLfdRO6JMK0slyC0UL2XeZWgBNAwFXWcrVSaCEs6L66nvEEuQHhu QM7YDUL+Sherry+Ra9RMDPwNBIfBTJsNsJnYCTQGrMeH62gyXNqBATsJSJ1PKJsFp9ZKKVpW9NzctFwdJdk daEiAWFpFTAYUS9ZLZztwnZmpZOtjCvoHB83bZqsTL 7UOs4SToFpBU5hhw9SbTYhGp2ZIQJqNU1YKHSyGZGnPMVyOUN5MEXeGtPrHYdcHLSoKJWxBNP1MEIyBB QcNC8IGpBoVRLnTPB5XLWyJPVyYULyas3KQOHuUJIaXgJ5HJOkWTYjWLBhVVeiYJPrFKGjGWz8LYAkIX EgGJ8PRqIaANKnJTJ6WGVmTOUcNXRwgw0UMWWpIZVn Hxo0NFVxTDFiZQAoEXjpZOOtLJToKST5JIFhHBEjFK9XYiLdCAOiKMBxHDPtDVEpUZEqsq7UXXHxPBJp CRD8FeKjCBKzRMDxRTpyASAoDSM5AcFlKVGsPXViND9MKzMsUZUaQEB5RBYxMGPlPVZqab7JRCKtUXDi VKCqVCBaXVHjJUShTTnmBBVkYRQ1TKj1EQDyGBQbWH 8SZuVlKJNrBSZ6RXenVKNpRICyzt6PAQSfDWRjXwc9LNIeTQPqYEXbIRtuUOElNSNsIqW7KLFkXUKlLW 5XFkDrRYRiFLQ3OCOaHYGpIQCcvs0KNECnJTQqNnZaIWBvLLIuNQRoEJxqZDEdTWB8AHPyANAcPOJgLX 2HVzAhXRsgOMZGVlu1CXybA2o1QMLySJ8UB8Lwn2Dk JQvaRYPCOKppEE0ajeIhMBWvFp5MD1yRRbk9GII5SqvfZhPlISLeOOA2OeYjHOC0LMQ3SWNzQtYlWH3r EFd9YLQuHFHhZTKkK3HlAtotZQXiRRfcBNv2NlG3JEDeEmUkRN9PAb1UItJ5LHJ2vPBwYt1QGAf9EmmT PpNaUN3WKWv= ID Date Data Source FREE T4 & TSH PANEL 08/10/2020 12:00:00 AM EST eCW1 ([facility]) Name Value Range Interpretation Code Description Data Maggie rce(s) Supporting Document(s) 0.354 0.358-3.740 THYROID STIMULATING HORM ONE eCW1 ([facility]) 0.82 0.76-1.46 FREE T4 eCW1 ([facility]) ID Date Data Source FREE T3 08/10/2020 12:00:00 AM EST eCW1 ([facility]) Name Value Range Interpretation Code Description Data Maggie rce(s) Supporting Document(s) 3.0 2.2-4.0 W1 ([facility]) ID Date Data Source [id number] 07/02/2020 10:41:48 AM EST [facility] Name Value Range Interpretation Code Description Data Maggie rce(s) Supporting Document(s) &PDF [facility] TEUYOp3jGjUJNtXy57/EJGjuALJgn0DnCIvyGCp3CVenHWAbO2TfoXmaRTFCR8THGYxEDFEiHrYkMEQx FcG [file] AgICAgICAgICAgICAgICAgICAgICAgICAgICAgICAgICAgICAgICAgICAgICAgICAgICAgICAgICAgIC AgICAgICAgICAgICAgICAgICAgICAgDQogICAgICAg ICAgICAgICAgICAgICAgICAgICAgICAgICAgICAgICAgICAgICAgICAgICAgICAgICAgICAgICAgICAg ICAgICAgICAgICAgICAgICAgICAgICAgICAgICAgICAgDQogICAgICAgICAgICAgICAgICAgICAgICAg ICAgICAgICAgICAgICAgICAgICAgICAgICAgICAgIC AgICAgICAgICAgICAgICAgICAgICAgICAgICAgICAgICAgICAgICAgICAgDQogICAgICAgICAgICAgIC AgICAgICAgICAgICAgICAgICAgICAgICAgICAgICAgICAgICAgICAgICAgICAgICAgICAgICAgICAgIC AgICAgICAgICAgICAgICAgICAgICAgICAgDQogICAg ICAgICAgICAgICAgICAgICAgICAgICAgICAgICAgICAgICAgICAgICAgICAgICAgICAgICAgICAgICAg ICAgICAgICAgICAgICAgICAgICAgICAgICAgICAgICAgICAgDQogICAgICAgICAgICAgICAgICAgICAg ICAgICAgICAgICAgICAgICAgICAgICAgICAgICAgIC AgICAgICAgICAgICAgICAgICAgICAgICAgICAgICAgICAgICAgICAgICAgICAgDQogICAgICAgICAgIC AgICAgICAgICAgICAgICAgICAgICAgICAgICAgICAgICAgICAgICAgICAgICAgICAgICAgICAgICAgIC AgICAgICAgICAgICAgICAgICAgICAgICAgICAgDQog ICAgICAgICAgICAgICAgICAgICAgICAgICAgICAgICAgICAgICAgICAgICAgICAgICAgICAgICAgICAg ICAgICAgICAgICAgICAgICAgICAgICAgICAgICAgICAgICAgICAgDQogICAgICAgICAgICAgICAgICAg ICAgICAgICAgICAgICAgICAgICAgICAgICAgICAgIC AgICAgICAgICAgICAgICAgICAgICAgICAgICAgICAgICAgICAgICAgICAgICAgICAgDQogICAgICAgIC AgICAgICAgICAgICAgICAgICAgICAgICAgICAgICAgICAgICAgICAgICAgICAgICAgICAgICAgICAgIC AgICAgICAgICAgICAgICAgICAgICAgICAgICAgICAg XFd7O6byQVSkWBQcTN7mOPx0Lj0+FLaUZoOqLYO6vhTbmM6IWF3zi2LoQLmiYUTkk9FpMXu6UR3SVMTh HWqdOK0BDLcjqw4YXBRjXHNwsZOOt7slAnUjDYA6OIQmZmlyUS6SDWAcA5evfjVfEZPoZAQVMWptLVET IU4ACwXkF4FwvR22ICSHFn1+DQplbmRvYmoNCjIxID Lan3PmDIn2LB1VXBLqZKydTF8PXENqtG5pLGatCY4PNgUnTOCiNOIFYkWdC18loZYuJVb2S2PtFgSfGQ VkRmlsZXMgPDwvTmFtZXMgWyBdDQogID4+ID4+LNitZZ0RUTzxwuUcVSWtYw4ZIBQmIQA0VZRkrINxIh KaXGQOOQddMB6RuFJnWLC5yG6jFHsyQJTkBHXoT6pY WtTkmTesXB40lQpynxSteWLfRDn+Xy3RKH4bt2IhSPe6vhYaWFrsNFNvKKkkTBArYANrVTGmESP4LAA5 JJXVBwNkGODvASIvEGzhRLOcBQAycg1BLUUdMTSrWoz6XUBdQEItXFQqOZneSUJhWKY3XZR6OWFyMSAa KA9CXjQzYLGsOMQhXIRuVHEdGSJrxb8OXNTrOLEgAt S8KQJmUMWyZSAhHNdnJMTvQLGmBrI2BHFxJFEaZO9AMhAmFFCuWES2HWTyIJEvRCNrwl4LWAKbRAQxXJ IaNeSkLLQiXDWnUNmxXYHmJHI5BOp7YLItBVTlGJ4EVkYtJGLfLDNlMjLdHCHtQKGfwx1VHBYcCINmHD Q4FuAvERJxRXStSHavFUVtRCO5ZmBtKVPyMTJyAQ1L EzXsNRHuNKO8GXQtRPQfSKNnlm4QWQSqNLQhRwcgWtPoLMAsCXKtJDqzJTCqWWB8BoUcPUIbIAOqIK9M MvSpMKHpJVk1GnCeBWGwMXAila0SXUEgOJZzPBP0NxAfSHRfKWReHVagILKuVIAcMbW4UWSmVFOdHE5E PePgCZReMQQ8LVAcTFWwTIJlsg1SYCIeMJHeTwR1Hw MrLCXyPHViXXnbFUKcPKF0FsUcGYLdSHDtLD3UXwPfQUcrQWBIXtc7VKfdE2f1PGOePn9BB8Iqu7XeZp RhNURICTdhHR3mjwMbPLGiTh5XN8bAUkl7VeOhAxJ3EywtICN4OiZlZYZkCqioYBR2AMU2AUu7Ll8cNB HdMsKqLSIeHXKtPBwqW9F9NHOyGWElTto9Hor5ZhE6 RjBpWR0EBp0HFtV6NFC1eZPnCu8PUPh0PQwBQtZoSN1ORNq= ID Date Data Source [id number] 05/30/2020 03:48:[address] [id number] Name: BERNY NAYAKDOB: 1940Sex: FOrdering Provider: Veronica Chance Prov: Veronica Nova Provider: Procedure Performed: XR CHEST PORTABLEExam Date: 05/30/2020 15:43MRN: [id number] Number: [id number] Class: OutpatientAccount #: [id number] for Exam: ppmTechnique: AP portable view obtained.Comparison: [...] KELLEN VALENCIA On 05/30/2020 3:48 PMWorkstation ID: [id number] Name Value Range Interpretation Code Description Data Maggie rce(s) Supporting Document(s) ID Date Data Source [id number] 05/30/2020 03:24:26 PM EST [facility] Name Value Range Interpretation Code Description Data Maggie rce(s) Supporting Document(s) &PDF [facility] SLQSRv5pMqDEFdUi46/GQZbsOHPdu7XyEAutDEk1BDcdVGSmG0HtqWrfGPDQN4XVSCdIALAmVoIkCNUb FcG [file] Yj1CAaB8ZEG8eELgOn6NXIi0FMGQUlXpDM1MQIg= ID Date Data Source [id number] 05/25/2020 10:00:00 AM EST [facility] Name Value Range Interpretation Code Description Data Maggie rce(s) Supporting Document(s) SARS coronavirus 2 RNA [facility] This lab was ordered by [facility] and reported by [facility]. ID Date Data Source [id number] 05/09/2020 12:51:00 PM EDT [facility] ([facility] ) Name Value Range Interpretation Code Description Data Maggie rce(s) Supporting Document(s) Microscopic observation [Identifier] in Unspecified specimen by Non- gynecological cytology method Laboratory test result [facility] ([facility]) SPECIMEN: FNA Left thyroid Specimen receceived in Cytolyt SPECIMEN ADEQUACY: Satisfactory for evaluation CATEGORIZATION: No Malignancy identified DESCRIPTIONS: Scattered groups of follicular cells, some with hurthle cell changes and rare cell with degenerative atypia, seen in a background of foamy macrophages and debris. COMMENTS: 05/10/20201434 Signed BRADLEY CRISTINA([facility]) 05/10/2020 0738 (Prelim) Signed Glen Rubio MD 05/10/2020 143 ID Date Data Source [id number] 05/09/2020 12:50:00 PM EDT [facility] ([facility]) Name Value Range Interpretation Code Description Data Maggie rce(s) Supporting Document(s) Microscopic observation [Identifier] in Unspecified specimen by Non- gynecological cytology method Laboratory test result [facility] ([facility]) SPECIMEN: FNA Isthmus nodule Specimen received in Cytolyt SPECIMEN ADEQUACY: Satisfactory for evaluation CATEGORIZATION: No Malignancy identified DESCRIPTIONS: Groups of follicular cells noted in a background of macrophages and several multinucleated histiocytes/giant cells. COMMENTS: 05/10/20201436 Signed BRADLEY CRISTINA([facility]) 05/10/2020 07 (Prelim) Signed Glen Rubio MD 05/10/20201436 ID Date Data Source [id number] 05/09/2020 12:49:00 PM EDT [facility] ([facility]) Name Value Range Interpretation Code Description Data Maggie rce(s) Supporting Document(s) Microscopic observation [Identifier] in Unspecified specimen by Non- gynecological cytology method Laboratory test result [facility] ([facility]) SPECIMEN: FNA Right thyroid Specimen received [...] clinical findings is recommended. See also reports [id number] and [id number] 05/10/2020 - 1447 Signed BRADLEY CRISTINA([facility]) 05/10/2020 0725 (Prelim) Signed Glen Rubio MD 05/10/2020 1443 Procedure Social History Code Duration Value Status Description Data Source(s ) Alcohol intake 05/18/2021 12:00:00 AM EDT Lifetime non-drinker (finding) completed Lifetime non-drinker (finding) [facility] Smoking 04/18/2021 12:00:00 AM EDT Never Smoker completed Never S moker [email or web address] ([facility]) Smoking 04/18/2021 12:00:00 AM EDT Never Smoker completed Never S moker eCW1 ([facility]) Smoking 04/18/2021 12:00:00 AM EDT Never Smoker completed Never S moker eCW1 ([facility]) Smoking 02/09/2021 12:00:00 AM EDT Never Smoker completed Never S moker [email or web address] ([facility]) Smoking 02/09/2021 12:00:00 AM EDT Never Smoker completed Never S moker [email or web address] ([facility]) Smoking 02/09/2021 12:00:00 AM EDT Never Smoker completed Never S moker [email or web address] ([facility]) Smoking 01/20/2021 12:00:00 AM EDT Never Smoker completed Never S moker [email or web address] ([facility]) Smoking 12/19/2020 12:00:00 AM EDT Patient has never smoked co mpleted Patient has never smoked [facility] ([facility]) Alcohol intake 12/14/2020 12:00:00 AM EDT Lifetime non-drinker (finding) completed Lifetime non-drinker (finding) [facility] Alcohol intake 11/21/2020 12:00:00 AM EDT Lifetime non-drinker (finding) completed Lifetime non-drinker (finding) [facility] Alcohol intake 11/08/2020 12:00:00 AM EDT Lifetime non-drinker (finding) completed Lifetime non-drinker (finding) [facility] Smoking 11/03/2020 12:00:00 AM EDT Never Smoker completed Never S moker eCW1 ([facility]) Smoking 11/03/2020 12:00:00 AM EDT Never Smoker completed Never S moker eCW1 ([facility]) Smoking 11/03/2020 12:00:00 AM EDT Never Smoker completed Never S moker eCW1 ([facility]) Smoking 09/16/2020 12:00:00 AM EST Never Smoker completed Never S moker [email or web address] ([facility]) Smoking 09/16/2020 12:00:00 AM EST Never Smoker completed Never S moker eCW1 ([facility]) Smoking 09/16/2020 12:00:00 AM EST Never Smoker completed Never S moker eCW1 ([facility]) Smoking 09/16/2020 12:00:00 AM EST Never Smoker completed Never S moker [email or web address] ([facility]) Smoking 08/10/2020 12:00:00 AM EST Never Smoker completed Never S moker eCW1 ([facility]) Smoking 06/16/2020 12:00:00 AM EST Never Smoker completed Never S moker eCW1 ([facility]) Smoking 06/16/2020 12:00:00 AM EST Never Smoker completed Never S moker eCW1 ([facility]) Alcohol intake 05/31/2020 12:00:00 AM EST Never completed [facility] Smoking 05/31/2020 12:00:00 AM EST Never smoker completed Never s moker [facility] Smoking 04/22/2020 12:00:00 AM EDT Never Smoker completed Never S moker [email or web address] ([facility]) Smoking 04/22/2020 12:00:00 AM EDT Never Smoker completed Never S moker [email or web address] ([facility]) Vital Signs ID Date Data Source UNK Name Value Range Interpretation Code Description Data Source(s) Systolic blood pressure 118 mm[Hg] 118 mm[Hg] [facility] Diastolic blood pressure 70 mm[Hg] 70 mm[Hg] [facility] Heart rate 74 /min 74 /min [facility] Body height 165.1 cm 165.1 cm [facility] Body weight 95.255 kg 95.255 kg [facility] Body mass index (BMI) [Ratio] 34.95 kg/m2 34.95 kg/m2 [facility] Oxygen saturation in Arterial blood by Pulse oximetry 96 % 96 % [facility] Body height 65 [in_i] 65 [in_i] [facility] ([facility], ) 5'5" Body weight 208.00 [lb_av] 208.00 [lb_av] [facility] ([facility], ) Body mass index (BMI) [Ratio] 34.6 kg/m2 34.6 k g/m2 [facility] ([facility], ) [place] body weight 125 [lb_av] 125 [lb_av] MEDEN T ([facility], ) Body weight 94.349 kg 94.349 kg [facility] ([facility], ) Body surface area Derived from formula 2.01 m2 2.01 m2 [facility] ([facility], ) Body weight 216 [lb_av] 216 [lb_av] eCW1 ([facility]) Body height [in_i] eCW1 ([facility]) Body mass index (BMI) [Ratio] 37.66 kg/m2 37.66 kg/m2 eCW1 ([facility]) Heart rate 60 /min 60 /min eCW1 ([facility]) Respiratory rate 18 /min 18 /min eCW1 ([facility]) Body temperature 96.4 [degF] 96.4 [degF] eCW1 ( [facility]) Systolic blood pressure 150 mm[Hg] 150 mm[Hg] e CW1 ([facility]) Diastolic blood pressure 82 mm[Hg] 82 mm[Hg] eCW1 ([facility]) Body weight 213 [lb_av] 213 [lb_av] eCW1 ([facility]) Body height [in_i] eCW1 ([facility]) Body mass index (BMI) [Ratio] 37.14 kg/m2 37.14 kg/m2 W1 ([facility]) Heart rate 60 /min 60 /min eCW1 ([facility]) Respiratory rate 19 /min 19 /min eCW1 ([facility]) Body temperature 98 [degF] 98 [degF] eCW1 ([facility]) Systolic blood pressure 110 mm[Hg] 110 mm[Hg] e CW1 ([facility]) Diastolic blood pressure 74 mm[Hg] 74 mm[Hg] eCW1 ([facility]) Body weight 215.00 [lb_av] 215.00 [lb_av] MEDEN T ([facility], ) [place] body weight 125 [lb_av] 125 [lb_av] MEDEN T ([facility], ) Body weight 97.524 kg 97.524 kg [facility] ([facility], ) Body mass index (BMI) [Ratio] 35.8 kg/m2 35.8 k g/m2 [facility] ([facility], ) Body surface area Derived from formula 2.04 m2 2.04 m2 [facility] ([facility], ) Body height 65 [in_i] 65 [in_i] [facility] ([facility], ) 5'5" Body weight 215.2 [lb_av] 215.2 [lb_av] eCW1 ([facility]) Body height [in_i] eCW1 ([facility]) Body mass index (BMI) [Ratio] 37.52 kg/m2 37.52 kg/m2 eCW1 ([facility]) Systolic blood pressure 130 mm[Hg] 130 mm[Hg] e CW1 ([facility]) Diastolic blood pressure 68 mm[Hg] 68 mm[Hg] eCW1 ([facility]) Body height 65 [in_i] 65 [in_i] MEDENT ([facility] 5'5" Body weight 216.00 [lb_av] 216.00 [lb_av] MEDEN T ([facility]) Body mass index (BMI) [Ratio] 35.9 kg/m2 35.9 k g/m2 [facility] ([facility]) [place] body weight 125 [lb_av] 125 [lb_av] MEDEN T ([facility]) Body weight 97.978 kg 97.978 kg [facility] ([facility]) Body surface area Derived from formula 2.04 m2 2.04 m2 [facility] ([facility]) Body surface area Derived from formula 2.04 m2 2.04 m2 [facility] ([facility]) Body height 65 [in_i] 65 [in_i] [facility] ([facility]) 5'5" Body weight 216.00 [lb_av] 216.00 [lb_av] MEDEN T ([facility]) Body mass index (BMI) [Ratio] 35.9 kg/m2 35.9 k g/m2 [facility] ([facility]) [place] body weight 125 [lb_av] 125 [lb_av] MEDEN T ([facility]) Body weight 97.978 kg 97.978 kg [facility] ([facility]) Systolic blood pressure 120 mm[Hg] 120 mm[Hg] [facility] ([facility]) Diastolic blood pressure 70 mm[Hg] 70 mm[Hg] [facility] ([facility]) Heart rate 79 /min 79 /min [facility] ([facility]) Oxygen saturation in Arterial blood by Pulse oximetry 94 % 94 % [facility] ([facility]) Body temperature 97.0 [degF] 97.0 [degF] [facility] ([facility]) Body height 65 [in_i] 65 [in_i] [facility] ([facility]) 5'5" Body weight 216.00 [lb_av] 216.00 [lb_av] MEDEN T ([facility]) Body mass index (BMI) [Ratio] 35.9 kg/m2 35.9 k g/m2 [facility] ([facility]) [place] body weight 125 [lb_av] 125 [lb_av] MEDEN T ([facility]) Body weight 97.978 kg 97.978 kg [facility] ([facility]) Body surface area Derived from formula 2.04 m2 2.04 m2 [facility] ([facility]) Systolic blood pressure 146 mm[Hg] 146 mm[Hg] [facility] Diastolic blood pressure 90 mm[Hg] 90 mm[Hg] [facility] Heart rate 60 /min 60 /min [facility] Body height 165.1 cm 165.1 cm [facility] Body weight 98.431 kg 98.431 kg [facility] Body mass index (BMI) [Ratio] 36.11 kg/m2 36.11 kg/m2 [facility] Oxygen saturation in Arterial blood by Pulse oximetry 95 % 95 % [facility] Systolic blood pressure 160 mm[Hg] 160 mm[Hg] [facility] Diastolic blood pressure 90 mm[Hg] 90 mm[Hg] [facility] Heart rate 65 /min 65 /min [facility] Body height 165.1 cm 165.1 cm [facility] Body weight 100.245 kg 100.245 kg [facility] Body mass index (BMI) [Ratio] 36.78 kg/m2 36.78 kg/m2 [facility] Oxygen saturation in Arterial blood by Pulse oximetry 95 % 95 % [facility] Body weight 222.00 [lb_av] 222.00 [lb_av] [employer] ([facility]) Body mass index (BMI) [Ratio] 36.9 kg/m2 36.9 k g/m2 [facility] ([facility]) [place] body weight 125 [lb_av] 125 [lb_av] MEDEN T ([facility]) Body weight 100.699 kg 100.699 kg [facility] ([facility], ) Body surface area Derived from formula 2.07 m2 2.07 m2 [facility] ([facility]) Systolic blood pressure 132 mm[Hg] 132 mm[Hg] [facility] ([facility]) Diastolic blood pressure 78 mm[Hg] 78 mm[Hg] [facility] ([facility]) Heart rate 60 /min 60 /min [facility] ([facility]) Oxygen saturation in Arterial blood by Pulse oximetry 98 % 98 % [facility] ([facility]) Body temperature 96.7 [degF] 96.7 [degF] [facility] ([facility]) Body height 65 [in_i] 65 [in_i] [facility] ([facility]) 5'5" Systolic blood pressure 136 mm[Hg] 136 mm[Hg] [facility] Diastolic blood pressure 90 mm[Hg] 90 mm[Hg] [facility] Heart rate 75 /min 75 /min [facility] Body height 165.1 cm 165.1 cm [facility] Body weight 100.699 kg 100.699 kg [facility] Body mass index (BMI) [Ratio] 36.94 kg/m2 36.94 kg/m2 [facility] Oxygen saturation in Arterial blood by Pulse oximetry 94 % 94 % [facility] Body weight 221 [lb_av] 221 [lb_av] eCW1 ([facility]) Body height [in_i] eCW1 ([facility]) Body mass index (BMI) [Ratio] 38.53 kg/m2 38.53 kg/m2 eCW1 ([facility]) Heart rate 77 /min 77 /min eCW1 ([facility]) Respiratory rate 18 /min 18 /min eCW1 ([facility]) Body temperature 97.7 [degF] 97.7 [degF] eCW1 ( [facility]) Systolic blood pressure 123 mm[Hg] 123 mm[Hg] e CW1 ([facility]) Diastolic blood pressure 79 mm[Hg] 79 mm[Hg] eCW1 ([facility]) Systolic blood pressure 126 mm[Hg] 126 mm[Hg] [facility] Diastolic blood pressure 68 mm[Hg] 68 mm[Hg] [facility] Heart rate 74 /min 74 /min [facility] Body height 165.1 cm 165.1 cm [facility] Body weight 100.517 kg 100.517 kg [facility] Body mass index (BMI) [Ratio] 36.88 kg/m2 36.88 kg/m2 [facility] Oxygen saturation in Arterial blood by Pulse oximetry 98 % 98 % [facility] Body weight 216 [lb_av] 216 [lb_av] eCW1 ([facility]) Body height [in_i] eCW1 ([facility]) Body mass index (BMI) [Ratio] 37.66 kg/m2 37.66 kg/m2 W1 ([facility]) Heart rate 66 /min 66 /min eCW1 ([facility]) Respiratory rate 19 /min 19 /min eCW1 ([facility]) Body temperature 97.8 [degF] 97.8 [degF] eCW1 ( [facility]) Systolic blood pressure 143 mm[Hg] 143 mm[Hg] e CW1 ([facility]) Diastolic blood pressure 71 mm[Hg] 71 mm[Hg] eCW1 ([facility]) Body weight 217 [lb_av] 217 [lb_av] eCW1 ([facility]) Body height [in_i] eCW1 ([facility]) Body mass index (BMI) [Ratio] 37.83 kg/m2 37.83 kg/m2 W1 ([facility]) Heart rate 62 /min 62 /min eCW1 ([facility]) Respiratory rate 18 /min 18 /min eCW1 ([facility]) Body temperature 98 [degF] 98 [degF] eCW1 ([facility]) Systolic blood pressure 152 mm[Hg] 152 mm[Hg] e CW1 ([facility]) Diastolic blood pressure 84 mm[Hg] 84 mm[Hg] eCW1 ([facility]) Systolic blood pressure 142 mm[Hg] 142 mm[Hg] [facility] Diastolic blood pressure 60 mm[Hg] 60 mm[Hg] [facility] Heart rate 60 /min 60 /min [facility] Body height 165.1 cm 165.1 cm [facility] Body weight 100.245 kg 100.245 kg [facility] Body mass index (BMI) [Ratio] 36.78 kg/m2 36.78 kg/m2 [facility] Oxygen saturation in Arterial blood by Pulse oximetry 98 % 98 % [facility] Body weight 219 [lb_av] 219 [lb_av] W1 ([facility]) Body height [in_i] eCW1 ([facility]) Body mass index (BMI) [Ratio] 38.18 kg/m2 38.18 kg/m2 [facility] ([facility]) Heart rate 60 /min 60 /min W1 ([facility]) Respiratory rate 18 /min 18 /min W1 ([facility]) Body temperature 98.9 [degF] 98.9 [degF] W1 ( [facility]) Systolic blood pressure 136 mm[Hg] 136 mm[Hg] e CW1 ([facility]) Diastolic blood pressure 79 mm[Hg] 79 mm[Hg] eCW1 ([facility]) Body weight 214.00 [lb_av] 214.00 [lb_av] MEDEN T ([facility], ) [place] body weight 125 [lb_av] 125 [lb_av] MEDEN T ([facility], ) Body weight 97.070 kg 97.070 kg MEDWEN ([facility], ) Body surface area Derived from formula 2.04 m2 2.04 m2 MEDEWN ([facility], ) Body height 65 [in_i] 65 [in_i] [facility] ([facility]) 5'5" Body mass index (BMI) [Ratio] 35.6 kg/m2 35.6 k g/m2 [facility] ([facility]) Body weight 218.38 [lb_av] 218.38 [lb_av] MEDEN T ([facility]) Body height 65 [in_i] 65 [in_i] [facility] ([facility]) 5'5" Body weight 224.00 [lb_av] 224.00 [lb_av] MEDEN T ([facility]) Body mass index (BMI) [Ratio] 37.3 kg/m2 37.3 k g/m2 [facility] ([facility]) [place] body weight 125 [lb_av] 125 [lb_av] MEDEN T ([facility]) Body weight 101.606 kg 101.606 kg [facility] ([facility]) Body weight 221.12 [lb_av] 221.12 [lb_av] eCW1 ([facility]) Body height [in_i] eCW1 ([facility]) Body mass index (BMI) [Ratio] 38.55 kg/m2 38.55 kg/m2 eCW1 ([facility]) Heart rate 54 /min 54 /min eCW1 ([facility]) Respiratory rate 18 /min 18 /min eCW1 ([facility]) Body temperature 98 [degF] 98 [degF] eCW1 ([facility]) Systolic blood pressure 143 mm[Hg] 143 mm[Hg] e CW1 ([facility]) Diastolic blood pressure 86 mm[Hg] 86 mm[Hg] eCW1 ([facility]) Patient Treatment Plan of Care Planned Activity Planned Date Details Description Data Source (s) Metoprolol Tartrate 50 MG Oral Tablet 05/18/2021 12:00:00 AM EDT [facility] Digoxin 0.125 MG Oral Tablet 05/12/2021 12:00:00 AM EDT [facility] Metoprolol Tartrate 25 MG Oral Tablet 05/12/2021 12:00:00 AM EDT [facility] midodrine hydrochloride 5 MG Oral Tablet 05/12/2021 12:00:00 AM EDT [facility] Lisinopril 10 MG Oral Tablet 04/21/2021 12:00:00 AM EDT [facility] rivaroxaban 20 MG Oral Tablet [Xarelto] 12/29/2020 12:00:00 AM EDT [facility] Metoprolol Tartrate 25 MG Oral Tablet 11/21/2020 12:00:00 AM EDT [facility] Fluconazole 150 MG Oral Tablet [Diflucan] 11/03/2020 12:00:00 AM ED T eCW1 ([facility]) Amoxicillin 875 MG Oral Tablet 11/03/2020 12:00:00 AM EDT eCW1 ([facility]) Fluconazole 150 MG Oral Tablet 11/03/2020 12:00:00 AM EDT [facility] Amoxicillin 875 MG Oral Tablet 11/03/2020 12:00:00 AM EDT [facility] Fluconazole 150 MG Oral Tablet [Diflucan] 11/03/2020 12:00:00 AM ED T eCW1 ([facility]) Amoxicillin 875 MG Oral Tablet 11/03/2020 12:00:00 AM EDT eCW1 ([facility]) Fluconazole 150 MG Oral Tablet [Diflucan] 11/03/2020 12:00:00 AM ED T eCW1 ([facility]) Amoxicillin 875 MG Oral Tablet 11/03/2020 12:00:00 AM EDT eCW1 ([facility]) Potassium Chloride 10 MEQ Extended Release Oral Tablet 06/22/2020 12:00:00 AM EST [facility] rivaroxaban 20 MG Oral Tablet [Xarelto] 06/22/2020 12:00:00 AM EST [facility] tizanidine 2 MG Oral Tablet 06/16/2020 12:00:00 AM EST eCW1 ([facility]) Prednisone 10 MG Oral Tablet 06/16/2020 12:00:00 AM EST eCW1 ([facility]) tizanidine 2 MG Oral Tablet 06/16/2020 12:00:00 AM EST eCW1 ([facility]) Prednisone 10 MG Oral Tablet 06/16/2020 12:00:00 AM EST eCW1 ([facility]) Furosemide 20 MG Oral Tablet 04/21/2020 12:00:00 AM EDT [facility] Metoprolol Tartrate 25 MG Oral Tablet 04/12/2020 12:00:00 AM EDT [facility] rivaroxaban 20 MG Oral Tablet 12/15/2019 12:00:00 AM EDT [facility] Potassium Chloride 10 MEQ Extended Release Oral Tablet 12/15/2019 12:00:00 AM EDT [facility] Polyethylene Glycol 400 4 MG/ML / Propylene glycol 3 M G/ML Ophthalmic Solution 11/26/2016 12:00:00 AM EDT [facility] Ascorbic Acid 226 MG / Beta Carotene 143 20 UNT / cuprous oxide 0.8 MG / dl-alpha tocopheryl acetate 200 UNT / Zinc Oxide 34.8 MG Oral Capsule [PreserVision] 04/12/2015 12:00:00 AM EDT [facility] tizanidine 2 MG Oral Tablet [facility]
[2021-05-31] MEDS ORDERED: propofoL 200 MG/20 ML VIAL As Ordered ONE (09:34)
[2021-05-31] MEDS ORDERED: SUCCINYLCHOLINE 100 MG/5 ML SYRINGE (J0330) As Ordered ONE (09:34)
[2021-05-31] MEDS ORDERED: LIDOCAINE 2% 100MG/5ML SDV (FOR ANES.) As Ordered ONE (09:34)
[2021-05-31] MEDS ORDERED: fentaNYL 100 MCG/2 ML INJECTION (J3010) As Ordered ONE ×2 (09:34→13:36)
[2021-05-31] MEDS ORDERED: MIDAZOLAM INJ 2MG/2ML VIAL (J2250 PER 1MG) As Ordered ONE (09:34)
[2021-05-31] MEDS ORDERED: LIDOCAINE W/EPINEPHRINE 1% 20ML VIAL As Ordered ONE (10:47)
[2021-05-31] MEDS ORDERED: REMIFENTANIL 1MG 3ML VIAL As Ordered ONE ×2 (11:41→11:50)
[2021-05-31] MEDS ORDERED: dexameTHASONE 4 MG/ML 1ML VIAL (J1100 PER 1MG) As Ordered ONE ×2 (12:05→12:11)
[2021-05-31] MEDS ORDERED: PHENYLephrine 500MCG 5ML (100MCG/ML) SYRINGE As Ordered ONE (12:10)
[2021-05-31] MEDS ORDERED: ePHEDrine SULFATE 25 MG/5 ML(5MG/ML) SYRINGE As Ordered ONE (12:21)
[2021-05-31] MEDS ORDERED: ONDANSETRON 4MG/2ML VIAL As Ordered ONE (12:29)
[2021-05-31] MEDS ORDERED: ACETAMINOPHEN 1000MG 100ML IV BTL (OFIRMEV) (J0131 PER 10MG) As Ordered ONE (12:32)
[2021-05-31] MEDS ORDERED: POLYSPORIN TOPICAL OINTMENT 15GM As Ordered ONE (13:50)
[2021-05-31] MEDS ORDERED: fentaNYL 100 MCG/2 ML INJECTION (J3010) IV PRN (14:35)
[2021-05-31] MEDS ORDERED: LR 1,000 ML IV SCH ×2 (14:35→14:40)
[2021-05-31] MEDS ORDERED: ONDANSETRON 4MG/2ML VIAL IV PRN (14:35)
[2021-05-31] MEDS ORDERED: ACETAMINOPHEN 650MG ER TAB (TYLENOL ARTHRITIS) PO PRN (15:10)
[2021-05-31 15:46] LABS: PTH INTACT 30.6 PG/ML (18.5-88.0)
[2021-05-31] MEDS ORDERED: MORPHINE 10 MG/ML 1ML VIAL (J2270) IV ONE (17:45)
[2021-05-31] MEDS ORDERED: ACETAMINOPHEN 325 MG/10.15 ML UDC PO PRN (17:50)
[2021-05-31] MEDS ORDERED: hydrALAZINE 20MG/ML 1ML VIAL (J0360 PER 20MG) IV PRN ×2 (17:50→18:55)
[2021-05-31] MEDS ORDERED: ACETAMINOPHEN 325 MG/10.15 ML UDC PO ONE (18:00)
[2021-05-31] MEDS ORDERED: hydrALAZINE 20MG/ML 1ML VIAL (J0360 PER 20MG) IV ONE (18:00)
[2021-05-31] MEDS ORDERED: **hydrALAZINE** 10 MG TAB PO PRN (18:40)
[2021-05-31] MEDS ORDERED: LEVOTHYROXINE 12.5MCG PER 1/2 TAB (0.0125MG) PO ONE ×2 (18:40→21:00)
[2021-05-31] MEDS ORDERED: NALOXONE INJ 0.4MG/1ML VIAL (J2310 PER 1MG) IV PRN (18:40)
[2021-05-31] MEDS ORDERED: oxyCODONE 5MG TAB PO PRN (18:40)
--- NOTE | 2021-05-31 18:52 | HPEPDOC ---
[facility] Medical History & Physical Date of Admission May 31, 2021 Date of Service: May 31, 2021 History and Physical CHIEF COMPLAINT: Partial thyroidectomy for papillary thyroid carcinoma HISTORY OF PRESENT ILLNESS: 80-year-old female with recent diagnosis of papillary thyroid carcinoma underwent complete thyroidectomy by ENT Dr. Leary today 05/31/2021, admitted for observation in the telemetry unit to monitor for hypocalcemia and thyroid hormone supplementation. She has a known history of congestive heart failure diastolic dysfunction, chronic atrial fibrillation with rapid ventricular response recently admitted to the hospital on 05/08 to 05/11/2021 complicated by hypotension requiring midodrine and intravenous amiodarone, but discharged home on digoxin. She currently complains of 10 out of 10 pain at the incision site status post IV fentanyl in the recovery room. She denies any shortness of breath chest pain pressure tightness headache despite having a systolic pressure 177 at the bedside. Patient was medically optimized by her contact officer as outpatient and underwent a complete thyroidectomy without any postop complications and minimal blood loss. She currently has a drain in the neck and denies any shortness of breath, odynophagia or dysphagia. PAST MEDICAL HISTORY: Papillary thyroid carcinoma, diastolic congestive heart failure ejection fraction of 60 to 65%, chronic atrial fibrillation, IBS, GERD, osteoarthritis, colonoscopy, macular degeneration of the right eye, rectal fissure, allergic rhinitis, cervical spondylosis with myelopathy, plantar fascial fibromatosis, myalgia, myositis, carpal tunnel syndrome, actinic keratosis, history of MRSA positive, right lower extremity DVT 1966, brain hemorrhage, cerebellar cavernous angioma,Papillary carcinoma of the thyroid, asthma, hypertension PAST SURGICAL HISTORY: Complete thyroidectomy 05/31/2021, right knee surgery meniscus left knee surgery meniscus hysterectomy, lap abdominal surgery left cataract extraction teeth extraction laser treatment to left eye to remove the membrane colonoscopy endoscopy pacemaker [facility] May 2020 SOCIAL HISTORY: Denies alcohol recreational drug use or current tobacco abuse FAMILY HISTORY: Noncontributory due to advanced age ALLERGIES: Please see below. REVIEW OF SYSTEMS: 10 point review of systems negative aside from positive findings in HPI HOME MEDICATIONS: Please see below. PHYSICAL EXAMINATION: VITAL SIGNS: See below GENERAL APPEARANCE: Awake alert oriented answering questions appropriately in no distress HEENT: Incision site clean drain noted dry mucous membranes unable to assess for JVD CARDIOVASCULAR: S1-S2 irregularly irregular not tachycardic LUNGS: Clear to auscultation no wheezing or rales ABDOMEN: Obese soft nontender nondistended positive bowel sounds EXTREMITIES: No pitting edema LABORATORY DATA: See below. IMAGING: See below MICROBIOLOGY: Please see below. ASSESSMENT: 80-year-old female with recent diagnosis of papillary thyroid carcinoma underwent complete thyroidectomy by ENT Dr. Leary today 05/31/2021, admitted for observation in the telemetry unit to monitor for hypocalcemia and thyroid hormone supplementation. She has a known history of congestive heart failure diastolic dysfunction, chronic atrial fibrillation with rapid ventricular response recently admitted to the hospital on 05/08 to 05/11/2021 complicated by hypotension requiring midodrine and intravenous amiodarone, but discharged home on digoxin. She currently complains of 10 out of 10 pain at the incision site status post IV fentanyl in the recovery room. She denies any shortness of breath chest pain pressure tightness headache despite having a systolic pressure 177 at the bedside. Patient was medically optimized by her contact officer as outpatient and underwent a complete thyroidectomy without any postop co mplications and minimal blood loss. She currently has a drain in the neck and denies any shortness of breath, odynophagia or dysphagia. Papillary thyroid carcinoma status post complete thyroidectomy -Postop management per ENT. -Telemetry monitoring for hypocalcemia, started on Synthroid -Supplement with calcium gluconate intravenously -Tramadol, oxycodone, acetaminophen as needed for pain -As needed antiemetics Hypertensive urgency Due to pain Since the patient has heart rate of 60-70, holding parameters have been placed on her metoprolol. She may be given direct vasodilators such as hydralazine or isosorbide. She will be resumed back on her home dose of lisinopril. CHF diastolic dysfunction, compensated Strict I's and O's Daily weights 2 L fluid fluid restriction starting tomorrow Chronic atrial fibrillation Anticoagulation held due to recent surgery, rate controlled continue with telemetry monitoring History of asthma, compensated Monitor for CO2 retention due to opioid use for pain control DVT prophylaxis: Compression stockings Vital Signs Vital Signs Date Time Temp Pulse Resp B/P (MAP) Pulse Ox O2 Delivery O2 Flow Rate FiO2 05/31/21 17:30 63 17 178/74 (108) 95 Nasal Cannula 2.0 05/31/21 15:40 97.6 Laboratory Data Labs 24H Laboratory Tests 2 05/31/21 14:48: Whole Blood Ionized Calcium 4.5, Parathyroid Hormone (Intact) 30.6 Home Medications Scheduled Cholecalciferol (Vitamin D3) (Vitamin D3) 1,000 Unit Tablet, 1,000 UNITS PO DAILY Cyanocobalamin (Vitamin B-12) (Vitamin B-12) 500 Mcg Tablet, 500 MCG PO DAILY Digoxin (Digoxin) 125 Mcg Tablet, 125 TAB PO DAILY Furosemide (Furosemide) 20 Mg Tablet, 20 MG PO DAILY Lisinopril (Lisinopril) 10 Mg Tablet, 10 MG PO DAILY Metoprolol Tartrate (Metoprolol Tartrate) 50 Mg Tablet, 50 MG PO BID Omeprazole (Omeprazole) 40 Mg Capsule.dr, 40 MG PO DAILY Potassium Chloride (K-Tab ER) 10 Meq Tablet.er, 10 MEQ PO DAILY Rivaroxaban (Xarelto) 20 Mg Tablet, 20 MG PO DAILY Scheduled PRN Acetaminophen (Tylenol Arthritis) 650 Mg Tablet.er, 1,300 MG PO DAILY PRN for PAIN Carboxymethylcellulos/Glycerin (Refresh Optive Eye Drops) 15 Ml Drops, 1 DROP OU DAILY PRN for DRY EYES Allergies Coded Allergies: ENVIRONMENTAL (Verified Allergy, Unknown, 04/06/21) meloxicam (Verified Allergy, Unknown, 05/08/21) tongue swelling? A-FIB/CHADSVASC A-FIB History Current/History of A-Fib/PAF?: Yes Current PO Anticoag Therapy: No Age/Risk Factor Scoring CHADSVASC: CHADSVASC Response (Comments) Value Age Risk Factor Age >/= 75 years old 2 Gender Risk Factor Female 1 Hx of CHF Yes 1 Hx of HTN Yes 1 Hx of Stroke/TIA/or VTE No 0 Hx of Diabetes No 0 Hx of Vascular Disease No 0 Total 5 Treatment Treatment ordered: NONE Reason Anticoagulant not given: Current bleeding JÚNIOR MEAD MD May 31, 2021 18:52
[2021-05-31] MEDS: traMADol 50 MG TAB PO PRN (19:03)
[2021-05-31 19:40] LABS: FREE THYROXINE INDEX 2.5 % (1.3-4.8); THYROXINE (T4) 6.7 UG/DL (4.5-12.0)
[2021-05-31] MEDS: METOPROLOL TART 50 MG TAB PO SCH (20:39)
[2021-06-01 02:00] VITALS: BP 133/62
[2021-06-01] MEDS ORDERED: CALCIUM GLUCONATE 1,000 MG in D5W MINI-BAG PLUS 100 ML IV ONE (03:50)
[2021-06-01] MEDS: traMADol 50 MG TAB PO PRN ×3 (04:19→21:59)
[2021-06-01 06:00] VITALS: BP 141/63
[2021-06-01 06:11] LABS: HEMATOCRIT 37.3 % (36.0-47.0); HEMOGLOBIN 12.2 g/dl (12.0-15.5); MEAN CORPUSCULAR HEMOGLOBIN 30.8 pg (27.0-33.0); MEAN CORPUSCULAR HGB CONC 32.7 g/dl (32.0-36.5); MEAN CORPUSCULAR VOLUME 94.2 fl (80.0-96.0); PLATELET COUNT, AUTOMATED 165 10^3/uL (150-450); RED BLOOD COUNT 3.96 10^6/uL (4.00-5.40); WHITE BLOOD COUNT 7.8 10^3/uL (4.0-10.0)
[2021-06-01] MEDS: LEVOTHYROXINE 12.5MCG PER 1/2 TAB (0.0125MG) PO SCH (06:21)
[2021-06-01 06:38] LABS: BLOOD UREA NITROGEN 10 MG/DL (7-18); CALCIUM LEVEL 8.7 MG/DL (8.8-10.2); CARBON DIOXIDE LEVEL 28 MEQ/L (21-32); CHLORIDE LEVEL 109 MEQ/L (98-107); CREATININE FOR GFR 0.59 MG/DL (0.55-1.30); GLOMERULAR FILTRATION RATE > 60.0 (>32); GLUCOSE, FASTING 142 MG/DL (70-100); MAGNESIUM LEVEL 1.8 MG/DL (1.8-2.4); POTASSIUM SERUM 4.2 MEQ/L (3.5-5.1); SODIUM LEVEL 144 MEQ/L (136-145)
[2021-06-01] MEDS ORDERED: CALCD50TA PO (08:44)
[2021-06-01] MEDS ORDERED: LEVO25TA5 PO (08:44)
[2021-06-01] MEDS: METOPROLOL TART 50 MG TAB PO SCH ×3 (09:00→22:00)
[2021-06-01] MEDS: FUROSEMIDE 20 MG TAB PO SCH (09:16)
[2021-06-01] MEDS: POTASSIUM CHLORIDE 10MEQ SR TABLET PO SCH (09:16)
[2021-06-01] MEDS: VITAMIN D 1,000 INTERNATIONAL UNITS TABLET PO SCH (09:17)
[2021-06-01] MEDS: CYANOCOBALAMIN 500 MCG TAB PO SCH (09:17)
[2021-06-01] MEDS: CALCIUM/VITAMIN D 500 MG TAB PO SCH ×2 (09:17→21:59)
[2021-06-01] MEDS: DIGOXIN 0.125 MG TAB PO SCH (09:20)
[2021-06-01 10:00] VITALS: BP 123/54
--- NOTE | 2021-06-01 11:46 | IPN ---
PROGRESS NOTE DATE: 06/01/2021 SUBJECTIVE: The patient's drain was blocked yesterday and had to be attached to suction. She has had no fever or chills. Her pain is controlled on current medications. No dysphagia or odynophagia. No shortness of breath, chest pain, pressure or tightness, epigastric pain, nausea, vomiting, diaphoresis or dizziness, palpitations this morning. No other issues per nursing. OBJECTIVE: VITAL SIGNS: Temperature 98.3, pulse 61, respiratory rate 19, blood pressure 122/53, 95% on 2 liters nasal cannula. GENERAL: Patient is awake, alert and oriented x3. She has a clean incision site across the throat and a drain placed with bloody drainage to suctioning. LUNGS: Clear to auscultation. No wheezes, rales or rhonchi. HEART: S1 and S2, sinus rhythm. S1 and S2, irregularly irregular with normal sinus rhythm. ABDOMEN: Soft, nontender and nondistended. Positive bowel sounds. EXTREMITIES: No cyanosis, clubbing or pitting edema. LABORATORY DATA/IMAGING STUDY/MICROBIOLOGY: Reviewed. Please see the chart. ASSESSMENT AND PLAN: This is an 80-year-old female with congestive heart failure, diastolic dysfunction, atrial fibrillation and anticoagulation recently diagnosed with papillary thyroid carcinoma who underwent total thyroidectomy on 05/31/2021, allergic rhinitis, cervical spondylolysis, IBS, GERD, osteoarthritis, macular degeneration of the right eye, chronic myalgia, myositis, carpal tunnel syndrome, history of MRSA positive and right lower extremity DVT in 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 IMPRESSION: 1. 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 Postop management per ENT. Patient's drain was not draining freely yesterday and had to be placed on wall suction. Telemetry shows no abnormalities. Patient had episodes of hypocalcemia which was treated with calcium gluconate, currently on calcium with vitamin D supplementation. Patient has also been started on Synthroid 12.5 mcg, will need to monitor patient's TSH levels. This may precipitate A-fib with RVR, therefore will need to monitor patient's pulse. She currently has controlled pain with tramadol, oxycodone and acetaminophen, as needed antiemetics, defer to ENT if patient can be discharged home today. She will need education about drain care and home care referral. 2. Hypertensive urgency, resolved Patient did receive hydralazine and was resumed back on her home dose of Lisinopril and metoprolol, therefore holding parameters have been placed today. Her blood pressure is 122 systolic at the bedside. 3. Congestive heart failure, diastolic dysfunction, compensated. She is kept on 2 liter fluid restriction. Diuretics held due to low blood pressure and has not resumed full oral intake yet. 4. Chronic atrial fibrillation, anticoagulation held for one week due to recent thyroidectomy. 5. History of asthma, compensated. 6. DVT prophylaxis with compression stockings. No anticoagulant due to recent thyroidectomy. 7. Disposition: Defer to ENT regarding discharge today or tomorrow.
[2021-06-01 14:00] VITALS: BP 126/95
--- OUTSIDE RECORDS SUMMARY | 2021-06-01 15:19 | CCD ---
Author Author [facility] Organization [facility] Address Unknown Phone Unavailable Care Team Providers Care Online Marketing Coordinator Name Role Phone Lloyd Munguia MD Unavailable [...] R IAN DPM Unavailable Unavailable MAJAK, R INA DPM Unavailable Unavailable MAJAK, R IAN DPM [...] MD Unavailable Unavaila ble MYLA, LAUREN MASON ASSOCIATE PARTNER-C Unavailable Unavailable MYLA, LAUREN MASON ASSOCIATE PARTNER-C Unavailable Unavailable MYLA, LAUREN MASON ASSOCIATE PARTNER-C Unavailable Unavailable MYLA, LAUREN MASON ASSOCIATE PARTNER-C Unavailable Unavailable MYLA, LAUREN MASON ASSOCIATE PARTNER-C Unavailable Unavailable MYLA, LAUREN MASON ASSOCIATE PARTNER-C Unavailable Unavailable MYLA, LAUREN MASON ASSOCIATE PARTNER-C Unavailable Unavailable MYLA, LAUREN MASON ASSOCIATE PARTNER-C Unavailable Unavailable MYLA, LAUREN MASON ASSOCIATE PARTNER-C Unavailable Unavailable MYLA, LAUREN MASON ASSOCIATE PARTNER-C Unavailable Unavailable MYLA, LAUREN MASON ASSOCIATE PARTNER-C Unavailable Unavailable MYLA, LAUREN MASON ASSOCIATE PARTNER-C Unavailable Unavailable MYLA, LAUREN MASON ASSOCIATE PARTNER-C Unavailable Unavailable MYLA, LAUREN MASON ASSOCIATE PARTNER-C Unavailable Unavailable MYLA, LAUREN MASON ASSOCIATE PARTNER-C Unavailable Unavailable MYLA, LAUREN MASON ASSOCIATE PARTNER-C Unavailable Unavailable MYLA, LAUREN MASON ASSOCIATE PARTNER-C Unavailable Unavailable Wagner Benavideselle PA Unavailable Unavailable [...] Unavailable Benavides, L Judi PA Unavailable Unavailable [place], V DINORAH PA-C Unavailable Unavailable Art, V DINORAH PA-C Unavailable Unavailable [place], V DINORAH PA-C Unavailable Unavailable Art, V DINORAH PA-C Unavailable Unavailable [place], V DINORAH PA-C Unavailable Unavailable [place], V DINORAH PA-C Unavailable Unavailable [place], V DINORAH PA-C Unavailable Unavailable [place], V DINORAH PA-C Unavailable Unavailable [place], V DINORAH PA-C Unavailable Unavailable [place], V DINORAH PA-C Unavailable Unavailable [place], V DIONRAH PA-C Unavailable Unavailable Art, V DINORAH PA-C Unavailable Unavailable Art, V DINORAH PA-C Unavailable Unavailable Art, V DINORAH PA-C Unavailable Unavailable [place], N Shade BOWLING PIN SETTERS INSTALLER Unavailable Unavailable Mary, N Shade BOWLING PIN SETTERS INSTALLER Unavailable Unavailable Mary, N Shade BOWLING PIN SETTERS INSTALLER Unavailable Unavailable [place], N Shade BOWLING PIN SETTERS INSTALLER Unavailable Unavailable Mary, N Shade BOWLING PIN SETTERS INSTALLER Unavailable Unavailable Mary, N Shade BOWLING PIN SETTERS INSTALLER Unavailable Unavailable [place], N Shade BOWLING PIN SETTERS INSTALLER Unavailable Unavailable [place], N Shade BOWLING PIN SETTERS INSTALLER Unavailable Unavailable Mary, N Shade BOWLING PIN SETTERS INSTALLER Unavailable Unavailable [place], N Shade BOWLING PIN SETTERS INSTALLER Unavailable Unavailable [place], N Shade BOWLING PIN SETTERS INSTALLER Unavailable Unavailable [place], N Shade BOWLING PIN SETTERS INSTALLER Unavailable Unavailable [place], N Shade BOWLING PIN SETTERS INSTALLER Unavailable Unavailable Mary, N Shade BOWLING PIN SETTERS INSTALLER Unavailable Unavailable [place], N Shade BOWLING PIN SETTERS INSTALLER Unavailable Unavailable Mary, N Shade BOWLING PIN SETTERS INSTALLER Unavailable Unavailable [place], N Shade BOWLING PIN SETTERS INSTALLER Unavailable Unavailable [place], N Shade BOWLING PIN SETTERS INSTALLER Unavailable Unavailable Mary, N Shade BOWLING PIN SETTERS INSTALLER Unavailable Unavailable [place], N Shade BOWLING PIN SETTERS INSTALLER Unavailable Unavailable [place], N Shade BOWLING PIN SETTERS INSTALLER Unavailable Unavailable [place], N Shade BOWLING PIN SETTERS INSTALLER Unavailable Unavailable [place], N Shade BOWLING PIN SETTERS INSTALLER Unavailable Unavailable Mary, N Shade BOWLING PIN SETTERS INSTALLER Unavailable Unavailable [place], N Shade BOWLING PIN SETTERS INSTALLER Unavailable Unavailable Mary, N Shade BOWLING PIN SETTERS INSTALLER Unavailable Unavailable [place], N Shade BOWLING PIN SETTERS INSTALLER Unavailable Unavailable Mary, N Shade BOWLING PIN SETTERS INSTALLER Unavailable Unavailable Mary, N Shade BOWLING PIN SETTERS INSTALLER Unavailable Unavailable [place], N Shade BOWLING PIN SETTERS INSTALLER Unavailable Unavailable Mary, N Shade BOWLING PIN SETTERS INSTALLER Unavailable Unavailable Mary, N Shade BOWLING PIN SETTERS INSTALLER Unavailable Unavailable Mary, N Shade BOWLING PIN SETTERS INSTALLER Unavailable Unavailable MEDENT_143, NA Unavailable [phone] Shawn NICK MD Unavailable Unavailable Shawn NICK [...] is protected by Article 27-F of the [facility] Public Health law. If you continue you may have access to information: Regarding HIV / AIDS; Provided by facilities licensed or operated by the [facility] Office of Mental Health; or Provided by the [facility] Office for People With Developmental Disabilities. If such information is present, then the following [facility] mandated warning applies: This information has [...] law may result in a fine or chcf sentence or both. A general authorization for [...] Description Data Source(s) Unknown Female Problem [facility] Unknown [facility] Unknown Male Problem MEDENT ([facility]) Unknown Male Problem MED[facility] ([facility] () Unknown Male Problem MEDENT ([facility] ) Encounters Encounter Providers Location Date Indications Data Source(s ) Outpatient Attender: Judi GREEN.CONY-SJP.CONY 10/2020 12:00:00 AM EDT - 05/18/2021 09:31:23 AM EDT [facility] Unknown [address] [facility] [address] 05/08/2021 12:00:00 AM EDT [facility] [address] [facility] [place] [address] 05/01/2021 12:00:00 AM EDT [facility]) Outpatient Admitter: GREGORY NICK MDReferrer: GREGORY NICK MD 04/26/2021 12:00:00 AM EDT Nontoxic goiter, unspecified [facility] Nontoxic goiter, unspecified Outpatient [address] [facility] [place] [address] 04/18/2021 12:00:00 AM EDT [facility]) Outpatient PETER.CT-SJP.SYR 04/13/2021 12:03:15 PM EDT [facility] Office Visit Attender: IAN REILLY [facility] Office 03/17 11:00:00 AM EDT MEDENT ([facility] Unknown [address] [facility] [address] 03/28/2021 12:00:00 AM EDT [facility]) Unknown [address] [facility] [place] [address] 03/15/2021 12:00:00 AM EDT [facility]) Outpatient Attender: IAN REILLY [facility] Office 02/13 03:30:00 PM EDT MED[facility] ([facility] Outpatient [address] [facility] [place] [address] 02/09/2021 12:00:00 AM EDT [facility]) Outpatient Attender: GREGORY Nick/Charito/Gal/Reind l 01/30/2021 09:30:00 AM EDT [facility] ([facility] [place] [address] [facility] [address] 01/20/2021 12:00:00 AM EDT [facility] [place] [address] [facility] [place] [address] 01/17/2021 12:00:00 AM EDT [facility]) Outpatient THERON 01/04/2021 12:30:51 PM EDT [facility] Outpatient Attender: IAN REILLY [facility] 12/13 03:15:00 PM EDT MEDENT ([facility] Outpatient Attender: GREGORY Nick/Charito/Gal/Shanted l 12/23/2020 02:00:00 PM EDT MED[facility] ([facility] Outpatient Attender: MASON Nick/Charito/Gal/R mikalal 12/19/2020 10:15:00 AM EDT [facility] ([facility] Outpatient Attender: DINORAH WAYNECONY 12:00:00 AM EDT - 12/08/2020 10:55:32 AM EDT [facility] Outpatient Referrer: DINORAH GRISSOM 11:15:14 AM EDT [facility] Outpatient Attender: DINORAH GRISSOM 04/2021 01:21:30 PM EDT - 11/21/2020 02:57:24 PM EDT [facility] Outpatient Attender: MASON Rojasr/Gal/Vidya galdamez 11/15/2020 01:15:00 PM EDT MED[facility] ([facility] Outpatient Attender: DINORAH SOLIZ.CONY 01:10:30 PM EDT - 11/08/2020 02:57:59 PM EDT [facility] Outpatient [address] [facility] [address] 11/03/2020 12:00:00 AM EDT [facility] [place] [address] [facility] [place] [address] 11/03/2020 12:00:00 AM EDT [facility] ([facility]) Outpatient Attender: DINORAH BEALSJLauraCONY 10:12:32 AM EDT - 10/25/2020 11:16:43 AM EDT [facility] Unknown [address] [facility] [place] [address] 10/19/2020 12:00:00 AM EDT [facility]) [place] [address] [facility] [place] [address] 10/04/2020 12:00:00 AM EDT [facility]) Outpatient PETER.MAYKEL 09/30/2020 11:27:23 AM EDT [facility] Outpatient ROSANACONY 09/29/2020 12:00:00 AM EDT [facility] Outpatient [address] [facility] [place] [address] 09/16/2020 12:00:00 AM EST [facility] [place] [address] [facility] [place] [address] 09/15/2020 12:00:00 AM EST [facility]) [place]patient [address] [facility] [place] [address] 08/10/2020 12:00:00 AM EST [facility]) Outpatient SJP.CONY-SJP 07/02/2020 10:42:01 AM EST [facility] Outpatient SJP.CONY-SJP.CONY 06/30/2020 12:00:00 AM EST [facility] Outpatient Attender: DINORAH Cordova PA-C SJP.CONY-SJP.CONY 03/2020 12:00:00 AM EST - 06/22/2020 02:55:55 PM EST [facility] Outpatient [address] [facility] [place] [address] 06/16/2020 12:00:00 AM EST [facility] [place] [address] [facility] [place] [address] 06/16/2020 12:00:00 AM EST [facility]) Office Visit Attender: NA LAWSON_143 [facility] Sales Officer s 06/06/2020 10:00:00 AM EST MED[facility] ([facility]) Outpatient Attender: GREGORY Nick/Charito/Gal/Reind l 05/31/2020 12:15:00 PM EST [facility] ([facility] Outpatient Attender: Erica Munguia MD Admitter: Erica Munguia MDReferrer: Erica Munguia MD [email or web address] 05/30/2020 12:14:00 PM EST - 05/30/2020 04:40:00 PM EST [facility] Patient discharged. Outpatient Attender: Erica Munguia MD [facility] 05/19/2020 01:00:00 PM EST MED[facility] ([facility]) Outpatient Attender: IAN REILLY [facility] Office 04/16 03:15:00 PM EDT [facility] ([facility] Outpatient Attender: GREGORY Nick/Charito/Gal/Reind l 05/02/2020 02:00:00 PM EDT [facility] ([facility] [place] [address] [facility] [place] [address] 04/27/2020 12:00:00 AM EDT [facility] [address] [facility] [place] [address] 04/22/2020 12:00:00 AM EDT [facility] [place] [address] [facility] [place] [address] 04/21/2020 12:00:00 AM EDT [facility]) [place] [address] [facility] [place] [address] 04/13/2020 12:00:00 AM EDT [facility]) Outpatient Attender: Shade Hernandez NP SJP.CONY-SJP.CONY 020 10:41:00 AM EDT - 04/12/2020 12:05:10 PM EDT [facility] Medications Medication Brand Name Start Date [...] by mouth 2 (two) times a day [facility] Paroxysmal atrial fibrillation 50 mg 05/18/2021 12:00:00 AM EDT tablet 180 TAKE ONE TABLET BY MOUTH TWICE A DAY TAKE ONE TABLET BY MOUTH TWICE A DAY SOLD: 05/19/2021 [facility] Digoxin 0.125 MG Oral Tablet digoxin (LANOXIN) 125 MCG tablet digoxin (LANOXIN) 125 MCG tablet 05/12/2021 12:00:00 AM EDT 125 ug Oral act abdiel Take 125 mcg by mouth daily [facility] 5 mg 05/12/2021 12:00:00 AM EDT tablet [...] midodrine hydrochloride 5 MG Oral Tablet midodrine (KS OAMATINE) 5 MG tablet midodrine (PROAMATINE) 5 MG tablet 05/12/2021 12:00:00 AM EDT 5 mg Oral aborted Take 5 mg by mouth 3 (three) mendoza es a day [facility] Metoprolol Tartrate 25 MG Oral Tablet me toprolol tartrate (LOPRESSOR) 25 MG tablet metoprolol tartrate (LOPRESSOR) 25 MG tablet 05/12/2021 12:0 0:00 AM EDT 25 mg Oral aborted Take 25 mg by mo uth 2 (two) times a day [facility] Digoxin 0.125 MG Oral Tablet 125 mcg [...] active Take 10 mg by mouth daily [facility] 5-325 mg 04/21/2021 12:00:00 AM EDT tablet [...] Neomycin 3.5 M G/ML / Polymyxin B 90013 UNT/ML Otic Solution Zhonhqxk-Ezbyqcdtn-EW 03/30/2021 12:00:00 AM EDT active MEDENT ([facility] [...] TAKE ONE TABLET BY MOUTH EVERY DAY [facility] Lidocaine Hydrochloride 40 MG/ML Topical Cream Aspercreme [...] by mouth 2 (two) times a day [facility] Fluconazole 150 MG Oral Tablet [Diflucan] Diflucan 150 MG Di flucan 150 MG 11/03/2020 12:00:00 AM EDT 1.0 {tablet} suspended Diflucan 150 MG eCW1 ([facility]) Amoxicillin 875 MG Oral Tablet Amoxicillin 875 MG 11/03/2020 12:00: 00 AM EDT 1.0 {tablet} suspended Amoxicillin 875 M G eCW1 ([facility]) Fluconazole 150 MG Oral Tablet [Diflucan] Diflucan 150 MG Di flucan 150 MG 11/03/2020 12:00:00 AM EDT 1.0 {tablet} active Diflucan 150 MG eCW1 ([facility]) Amoxicillin 875 MG Oral Tablet Amoxicillin 875 MG 11/03/2020 12:00: 00 AM EDT 1.0 {tablet} active Amoxicillin 875 MG eCW1 ([facility]) Fluconazole 150 MG Oral Tablet [Diflucan] Diflucan 150 MG Di flucan 150 MG 11/03/2020 12:00:00 AM EDT 1.0 {tablet} suspended Diflucan 150 MG eCW1 ([facility]) Amoxicillin 875 MG Oral Tablet Amoxicillin 875 MG 11/03/2020 12:00: 00 AM EDT 1.0 {tablet} active Amoxicillin 875 MG eCW1 ([facility]) Fluconazole 150 MG Oral Tablet [Diflucan] Diflucan 150 MG Di flucan 150 MG 11/03/2020 12:00:00 AM EDT 1.0 {tablet} active Diflucan 150 MG eCW1 ([facility]) 875 mg 11/03/2020 12:00:00 AM EDT tablet 20 TAKE ONE TABLET BY MOUTH TWICE A DAY TAKE ONE TABLET BY MOUTH TWICE A DAY SOLD: 11/03/2020 [facility] Amoxicillin 875 MG Oral Tablet Amoxicillin 875 MG 11/03/2020 12:00: 00 AM EDT 1.0 {tablet} suspended Amoxicillin 875 M G eCW1 ([facility]) Amoxicillin 875 MG Oral Tablet Amoxicillin 875 MG 11/03/2020 12:00: 00 AM EDT 1.0 {tablet} suspended Amoxicillin 875 M G eCW1 ([facility]) Fluconazole 150 MG Oral Tablet [Diflucan] Diflucan 150 MG Di flucan 150 MG 11/03/2020 12:00:00 AM EDT 1.0 {tablet} suspended Diflucan 150 MG eCW1 ([facility]) Amoxicillin 875 MG Oral Tablet Amoxicillin 875 MG 11/03/2020 12:00: 00 AM EDT 1.0 {tablet} active Amoxicillin 875 MG eCW1 ([facility]) Amoxicillin 875 MG Oral Tablet Amoxicillin 875 MG 11/03/2020 12:00: 00 AM EDT 1.0 {tablet} suspended Amoxicillin 875 M G eCW1 ([facility]) Fluconazole 150 MG Oral Tablet [Diflucan] Diflucan 150 MG Di flucan 150 MG 11/03/2020 12:00:00 AM EDT 1.0 {tablet} suspended Diflucan 150 MG eCW1 ([facility]) Amoxicillin 875 MG Oral Tablet Amoxicillin 875 MG 11/03/2020 12:00: 00 AM EDT 1.0 {tablet} suspended Amoxicillin 875 M G eCW1 ([facility]) Amoxicillin 875 MG Oral Tablet Amoxicillin 875 MG 11/03/2020 12:00: 00 AM EDT 1.0 {tablet} suspended Amoxicillin 875 M G eCW1 ([facility]) Fluconazole 150 MG Oral Tablet fluconazole (DIFLUCAN) 150 MG tablet fluconazole (DIFLUCAN) 150 MG tablet 11/03/2020 12:00:00 AM EDT aborted TAKE 1 TABLET BY MOUTH TODAY REPEAT IN 3 DAYS [facility] Fluconazole 150 MG Oral Tablet [Diflucan] Diflucan 150 MG Di flucan 150 MG 11/03/2020 12:00:00 AM EDT 1.0 {tablet} suspended Diflucan 150 MG eCW1 ([facility]) Fluconazole 150 MG Oral Tablet [Diflucan] Diflucan 150 MG Di flucan 150 MG 11/03/2020 12:00:00 AM EDT 1.0 {tablet} active Diflucan 150 MG eCW1 ([facility]) Fluconazole 150 MG Oral Tablet [Diflucan] Diflucan 150 MG Di flucan 150 MG 11/03/2020 12:00:00 AM EDT 1.0 {tablet} suspended Diflucan 150 MG eCW1 ([facility]) Amoxicillin 875 MG Oral Tablet Amoxicillin 875 MG 11/03/2020 12:00: 00 AM EDT 1.0 {tablet} suspended Amoxicillin 875 M G eCW1 ([facility]) Fluconazole 150 MG Oral Tablet [Diflucan] Diflucan 150 MG Di flucan 150 MG 11/03/2020 12:00:00 AM EDT 1.0 {tablet} suspended Diflucan 150 MG eCW1 ([facility]) Amoxicillin 875 MG Oral Tablet amoxicillin (AMOXIL) 87 5 MG tablet amoxicillin (AMOXIL) 875 MG tablet 11/03/2020 12:00:00 AM EDT 875 mg Oral aborted Take 875 mg by mouth 2 (two) times a day [facility] 150 mg 11/03/2020 12:00:00 AM EDT [...] tablet (10 mEq total) by mouth daily [facility] rivaroxaban 20 MG Oral Tablet [Xarelto] XARELTO 20 MG TABS X ARELTO 20 MG TABS 06/22/2020 12:00:00 AM EST active TAKE ONE TABLET BY MOUTH EVERY DAY [facility] tizanidine 2 MG Oral Tablet TIZANIDINE HCL 06/16/2020 12:00:00 AM EST tablet 10 TAKE ONE TABLET BY MOUTH AT BEDTIME NEEDED TAKE ONE TABLET BY MOUTH AT BEDTIME NEEDED SOLD: 06/17/2020 [facility] 10 mg 06/16/2020 12:00:00 AM EST tablet 15 TAKE THREE TABLETS BY MOUTH EVERY DAY TAKE THREE TABLETS BY MOUTH EVERY DAY SOLD: 06/17/2020 [facility] Prednisone 10 MG Oral Tablet PredniSONE 10 MG PredniSONE 10 MG 06/16/2020 12:00:00 AM EST 3.0 {tablets} active P redniSONE 10 MG eCW1 ([facility]) tizanidine 2 MG Oral Tablet Tizanidine HCl 2 MG Tizanidine H Cl 2 MG 06/16/2020 12:00:00 AM EST 1.0 {tablet_as_needed} active Tizanidine HCl 2 MG eCW1 ([facility]) tizanidine 2 MG Oral Tablet Tizanidine HCl 2 MG Tizanidine H Cl 2 MG 06/16/2020 12:00:00 AM EST 1.0 {tablet_as_needed} active Tizanidine HCl 2 MG eCW1 ([facility]) Prednisone 10 MG Oral Tablet PredniSONE 10 MG PredniSONE 10 MG 06/16/2020 12:00:00 AM EST 3.0 {tablets} active P redniSONE 10 MG eCW1 ([facility]) 40 mg 04/27/2020 12:00:00 AM EDT capsule,delayed [...] TAKE ONE TABLET BY MOUTH EVERY DAY [facility] 25 mg 04/13/2020 12:00:00 AM EDT [...] tablets (12.5 mg total) by mouth daily [facility] Atenolol 100 MG Oral Tablet ATENOLOL [...] tablet (20 mg total) by mouth daily [facility] Potassium Chloride 10 MEQ Extended Relea se Oral Tablet potassium chloride (K- DUR) 10 MEQ tablet potassium chloride (K-DUR) 10 MEQ tablet 12/15/2019 12 :00:00 AM EDT 10 meq Oral aborted Take 1 t ablet (10 mEq total) by mouth daily [facility] Polyethylene Glycol 400 4 MG/ML / Propyl kathy glycol 3 MG/ML Ophthalmic Solution Polyethyl Glycol-Propyl Glycol (SYSTANE ULTRA) 0.4-0.3 % SOLN Polyethyl Glycol- Propyl Glycol (SYSTANE ULTRA) 0.4-0.3 % SOLN 11/26/2016 12:00:00 AM EDT aborted SYSTANE ULTRA 0.4-0.3 % SOLN [facility] Ascorbic Acid 226 MG / Beta Carotene 143 20 UNT / cuprous oxide 0.8 MG / dl-alpha tocopheryl acetate 200 UNT / Zinc Oxide 34.8 MG Oral Capsule [PreserVision] Multiple Vitamins-Minerals (PRESERVISION AREDS) CAPS Multiple Vitamins-Minerals (PRESERVISION AREDS) CAPS 04/12/2015 12:00:00 AM EDT aborted PRESERVISION AREDS CAPS [facility] tizanidine 2 MG Oral Tablet tiZANidine (ZANAFLEX) 2 MG tablet tiZANidine (ZANAFLEX) 2 MG tablet 2 mg Oral aborted Take 2 mg by mouth as needed [facility] Insurance Providers Payer name Policy type / Coverage type Policy ID Covered alliance party ID Covered alliance party's relationship to lane Policy Lane Plan Information [place] El[place] () Workers Compensation [id number] Self A [id number] MEDICARE [id number] xxxxxxxxxxx [id number] MEDICARE A [id number] Self [id number] [id number] MEDICARE [id number] Marie [id number] H74 Medicare [place] Med[place]ap Part B [id number] Self [id number] [employer] [place] (pr) Medigap Part B [id number] Self [id number] [employer] Medigap Part B [id number] Self [id number] [employer] Medicare Commercial [id number] Self [id number] [employer] Medigap Part B [id number] Self [id number] [employer] Medicare Medigap Part B [id number] Self [id number] [employer] Medigap Part B [id number] Self [id number] [employer] Medigap Part B [id number] Self [id number] [employer] Medigap Part B [id number] Self [id number] [employer] Medigap Part B [id number] Self [id number] MEDICARE COMPLETE [id number] [facility] [id number] [facility] [id number] [facility] [id number] xxxxxxxxxxx [id number] ANSI-Medicare Part B [id number] ANSI-Commercial [id number] ANSI-Commercial [id number] ANSI-Medicare Part B [id number] ANSI-Medicare Part B [id number] ANSI-Medicare Part B [id number] ANSI-Medicare Part B [id number] ANSI-Commercial [id number] [facility] Part B [id number] Self [id number] Medicare [place] Medicare Primary [id number] Self [id number] ANSI-Medicare Part B [id number] ANSI-Commercial [id number] ANSI-Medicare Part B [id number] ANSI-Medicare Part B [id number] ANSI-Medicare Part B [id number] ANSI-Commercial [id number] ANSI-Medicare Part B [id number] ANSI-Medicare Part B [id number] ANSI-Commercial bjq3wj09-p67b-0850-i63z-33v67x2f800d vzt7fx05-c09w-9789-y67t-40w66v3p705y ANSI-Medicare Part B [id number] ANSI-Medicare Part B [id number]-6u25-8991-g62l-[id number] ANSI-Commercial 9jcg0seq-117h-7j99-93o6-[id number] 8zbi8wxz-403h-7g97-95e1-[id number] ANSI-Medicare Part B [id number] ANSI-Commercial mc84ltbr-0b3s-2401-0gt4-51413k4o5v2k rg45gglg-3i2z-0367-5iz9-49342g9q8r3c ANSI-Medicare Part B [id number]-[id number] [facility] [id number] [id number] Self [id number] Medicare [place] Medicare Primary [id number] ..[id number] [facility] [id number] Self [id number] Medicare [facility] Services Medicare Primary [id number] ..[id number] Self [id number] [facility] [employer] Commercial [id number] ..[id number] Self [id number] Medicare [facility] Medigap Part B [id number] ..[id number] .[id number] Self [id number] Medicare Medicare Primary [id number] 2.16.840.1.949946.3.227. 99.936.83704.[id number] [facility] Insurance [facility] Part B [id number] Self [id number] ANSI-Medicare Part B [id number] ANSI-Medicare Part B [id number] ANSI-Commercial [id number] ANSI-Medicare Part B [id number] ANSI-Medicare Part B [id number] ANSI-Commercial [id number] MEDICARE C [id number] S [id number] A ANSI-Commercial [id number] ANSI-Medicare Part B [id number] [facility]-Medicare Part B [id number] ANSI-Commercial [id number] ANSI-Medicare Part B [id number] ANSI-Medicare Part B [id number] MEDICARE [id number] [facility] Part B [id number] .[id number]. 70035.0 Self [id number] Medicare [facility] Medicare Primary [id number] .[id number] Self [id number] [employer] [id number] .[id number] Self [id number] Medicare Dme Medigap Part B [id number] .[id number] .936.15107.0 Self [id number] Medicare Medicare Primary [id number] .1.654388.3.227. 99.936.55873.[id number] [facility] Healthcare Options [facility] Part B [id number] .[id number] Self [id number] [place] Primary [id number] 2.16.840.1.618310.3.227.99.991.56824.0 Self 1 [id number] Secure [facility] Medigap Part B [id number] 2.16.840.1.181758.3.227 .99.991.71456.0 Self [id number] [employer] [id number] 2.16.840.1.247920.3.227.99.936.28992.0 Self [id number] Medicare Dme Medigap Part B [id number] 2.16.840.1.349460.3.227.99 .936.73129.0 Self [id number] Medicare Medicare Primary [id number] 2.16.840.1.476217.3.227. 99.936.69262.0 Self [id number] UpDown [id number].936.71677.0 Self [id number] Medicare Dme Medigap Part B [id number] 2.16.840.1.883048.3.227.99 .936.02213.0 Self [id number] Medicare Medicare Primary [id number] 2.16.840.1.602829.3.227. 99.936.20400.0 Self [id number] [facility] [id number] 2.16.840.1.891764.3.227.99.104.474416.0 Self [id number] Medicare [place] Primary [id number] 2.16.840.1.253265.3.227.99.104.843285.0 Self [id number] UpDown [id number] 2.16.840.1.120091.3.227.99.936.20910.0 Self [id number] Medicare Medicare Primary [id number] 2.16840.1.714100.3.227. 99.936.16043.0 Self [id number] MEDICARE [id number] SP [id number] H74 MEDICARE COMPLETE-UHC O [id number] S [id number] MEDICARE COMPLETE [id number] SP [id number] MEDICARE COMPLETE [id number] SP [id number] [facility] Commercial [id number] Self [id number] MEDICARE COMPLETE-UHC O [id number] S [id number] [facility] Commercial [id number] Self [id number] [facility] OPTIONS [id number] SP [id number] MEDICARE C [id number] S [id number] H74 AARP O [id number] S [id number] 311 [facility] OPTIONS [id number] S [id number] [facility] [id number] S [id number] [place]ICARE - [place] [id number] S [id number] [facility] MEDICARE [id number] S [id number] [facility] [id number] S [id number] [facility] OPTIONS [id number] S [id number] [facility] MEDICARE [id number] S [id number] [facility] C [id number] S [id number] ANSI-Commercial [id number] ANS-Medicare Part B [id number] ANSI-Medicare Part B [id number] [facility] Options [facility] Part B [id number] Self [id number] Medicare [place] Primary [id number] Self [id number] ANSI-Medicare Part B [id number] Problems, Conditions, and Diagnoses Code Display Name Description Problem Type Effective Dates Data Source(s) Z01.818 Encounter for other preprocedural examin ation Encounter for other preprocedural examin Diagnosis 05/18/2021 08:07:17 AM EDT [facility] R07.9 Chest pain, unspecified Chest pain, unspecified Diagno sis 05/18/2021 08:07:17 AM EDT [facility] I10 Essential (primary) hypertension Essential (primary) h ypertension Diagnosis 05/18/2021 08:07:17 AM EDT [facility] I50.31 Acute diastolic (congestive) heart failu re Acute diastolic (congestive) heart failu Diagnosis 05/18/2021 08:07:17 AM EDT [facility] I71.2 Thoracic aortic aneurysm, without ruptur e Thoracic aortic aneurysm, without ruptur Diagnosis 05/18/2021 08:07:17 AM EDT [facility] Z68.36 Body mass index (BMI) 36.0-36.9, adult B lianet mass index (BMI) 36.0-36.9, adult Diagnosis 05/18/2021 08:07:17 AM EDT [facility] E66.09 Other obesity due to excess calories Oth er obesity due to excess calories Diagnosis 05/18/2021 08:07:17 AM EDT [facility] R06.02 Shortness of breath Shortness of breath Diagnosis 1 07/18/2020 08:07:17 AM EDT [facility] I48.0 Paroxysmal atrial fibrillation Paroxysmal atrial fibri llation Diagnosis 05/18/2021 08:07:17 AM EDT [facility] I49.5 Sick sinus syndrome Sick sinus syndrome Diagnosis 1 07/18/2020 08:07:17 AM EDT [facility] 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 Diagnosi s 04/26/2021 02:17:00 PM EDT [facility] E04.9 Nontoxic goiter, unspecified Nontoxic goiter, unspecif ied Diagnosis 04/26/2021 02:17:00 PM EDT [facility] Z01.818 Preop examination Preop examination [id number] 05/18/2021 12:00:00 AM EDT [facility] I50.31 Acute diastolic congestive heart failure Acute diastolic congestive heart failure [id number] 05/18/2021 12:00:00 AM EDT [facility] M89.49 [id number] Primary osteoarthritis involving multiple joints Problem 04/18/2021 12:00:00 AM EDT eCW1 ([facility]) G56.02 [id number] Carpal tunnel syndrome, left Problem 04/18/2021 12:00:00 AM EDT eCW1 ([facility]) I71.2 [id number] Ascending aortic aneurysm Problem 04/18/2021 12:00:00 AM EDT eCW1 ([facility]) Z95.0 [id number] S/P cardiac pacemaker procedure Problem 02/09/2021 12:00:00 AM EDT eCW1 ([facility]) R06.09 [id number] Chronic dyspnea Problem 09/16/2020 12:00:00 AM EST eCW1 ([facility]) I11.9 64853513 Hypertensive heart disease without heart failure Problem 08/10/2020 12:00:00 AM EST eCW1 ([facility]) M79.676 Pain in limb Pain in limb Problem 08/09/2020 12:00:00 A M EST [facility] ([facility] [id number] Cardiac pacemaker in situ Cardiac pacemaker in situ Pr oblem 06/06/2020 12:00:00 AM EST [facility] ([facility] I49.5 SSS (sick sinus syndrome) SSS (sick sinus syndrome) 64 [id number] 05/20/2020 12:00:00 AM EST [facility] [id number] Sinus node dysfunction Sinus node dysfunction Problem 05/19/2020 12:00:00 AM EST [facility] ([facility]) [id number] Paroxysmal atrial fibrillation Paroxysmal atrial fibri llation Problem 05/19/2020 12:00:00 AM EST [facility] ([facility]) E05.90 79979038 Hyperthyroidism Problem 04/22/2020 12:00:00 AM EDT eCW1 ([facility]) I49.5 [id number] Tachy-julio cesar syndrome Problem 04/22/2020 12:0 0:00 AM EDT eCW1 ([facility]) I48.92 682103217 Paroxysmal atrial flutter Problem 04/22/2020 12:00:00 AM EDT eCW1 ([facility]) Surgeries/Procedures Procedure Description Date Indications Data Source(s) ECG ROUTINE ECG W/LEAST 12 LDS W/I&R <td>POCT AMB EKG</td><td>Routine</td><td>05/18/2021 9:20 AM EDT</td><td> Paroxysmal atrial fibrillation</td><td> </td> 05/18/2021 09:20:00 AM EDT Paroxysmal atrial fibrillation [facility] Paroxysmal atrial fibrillation BLOOD COUNT COMPLETE AUTO&AUTO DIFRNTL WBC COUNT <td>C BC AND DIFFERENTIAL</td><td>Routine</td><td>05/11/2021</td><td></td><td> </td> 05/11/2021 12:00:00 AM EDT [facility] DRUG SCREEN QUALITATIVE DIGOXIN <td>DIGOXIN LEVEL</td><td>Routine</td><td>05/11/2021</td><td></td><td> </td> 05/11/2021 12:00:00 AM EDT [facility] BASIC METABOLIC PANEL CALCIUM TOTAL <td>BASIC METABOLI C PANEL</td><td>Routine</td><td>05/11/2021</td><td></td><td> </td> 05/11/2021 12:00:00 AM EDT [facility] BASIC METABOLIC PANEL CALCIUM TOTAL <td>BASIC METABOLI C PANEL</td><td>Routine</td><td>05/09/2021</td><td></td><td> </td> 05/09/2021 12:00:00 AM EDT [facility] BASIC METABOLIC PANEL CALCIUM TOTAL <td>BASIC METABOLI C PANEL</td><td>Routine</td><td>05/08/2021</td><td></td><td> </td> 05/08/2021 12:00:00 AM T [facility] Laryngoscopy Direct Biopsy W/Operating Microscope 04/20/2021 12:00:00 AM [facility] ([facility], ) Thyroid Lobectomy Total Unilateral 04/20/2021 12:00:00 AM [facility] ([facility], ) THYROID STIMULATING HORMONE TSH <td>TSH</td><td>Routine</td><td>04/17/2021</td><td></td><td> </td> 04/17/2021 12:00:00 AM EDT [facility] HEPATIC FUNCTION PANEL <td>HEPATIC FUNCTION PANEL</td><td>Routine</td><td>04/17/2021</td><td></td><td> </td> 04/17/2021 12:00:00 AM EDT [facility] BASIC METABOLIC PANEL CALCIUM TOTAL <td>BASIC METABOLI C PANEL</td><td>Routine</td><td>04/17/2021</td><td></td><td> </td> 04/17/2021 12:00:00 AM EDT [facility] EXCISION NAIL MATRIX PERMANENT REMOVAL 03/30/2021 12:0 0:00 AM EDT [facility] ([facility] OFFICE OUTPATIENT VISIT 10 MINUTES 03/03/2021 12:00:00 AM EDT [facility] ([facility] LARYNGOSCOPY FLEXIBLE FIBEROPTIC DIAGNOSTIC 01/30/2021 12:00:00 AM EDT [facility] ([facility], ) OFFICE OUTPATIENT VISIT 25 MINUTES 01/30/2021 12:00:00 AM EDT [facility] ([facility], ) Med: Derm 1% Lidocaine with Epinephrine Injection Intr adermally to marked areas 01/20/2021 12:00:00 AM EDT eC1 ([facility]) DEBRIDEMENT NAIL ANY METHOD /> 12/23/2020 12:00:00 AM EDT [facility] ([facility] OFFICE OUTPATIENT VISIT 10 MINUTES 12/23/2020 12:00:00 AM EDT [facility] ([facility] OFFICE OUTPATIENT VISIT 15 MINUTES 12/23/2020 12:00:00 AM EDT [facility] ([facility], ) OFFICE OUTPATIENT VISIT 25 MINUTES 12/19/2020 12:00:00 AM EDT [facility] ([facility], ) Bronchospasm Evaluation 12/09/2020 12:00:00 AM EDT [facility] ([facility], ) Plethysmography Determination Lung Volumes & Per Airway Resi st 12/09/2020 12:00:00 AM EDT [facility] ([facility] ) DIFFUSING CAPACITY 12/09/2020 12:00:00 AM EDT [facility] ([facility], ) ECG ROUTINE ECG W/LEAST 12 LDS W/I&R <td>POCT AMB EKG</td><td>Routine</td><td>11/21/2020 5:34 PM EDT</td><td> Shortness of breath</td><td> </td> 11/21/2020 05:34:00 PM EDT Shortness of breath [facility] Shortness of breath BLOOD COUNT COMPLETE AUTOMATED <td>CBC</td><td>Routine</td><td>11/21/2020</td><td> Shortness of breath</td><td> </td> 11/21/2020 12:00:00 AM EDT Shortness of breath [facility] Shortness of breath Spirometry 11/15/2020 12:00:00 AM EDT [facility] ([facility], ) OFFICE OUTPATIENT VISIT 25 MINUTES 11/15/2020 12:00:00 AM EDT [facility] ([facility], ) POCT AMB EKG <td>POCT AMB EKG</td><td>Rou monica</td><td>11/08/2020 7:22 PM EDT</td><td> Paroxysmal atrial fibrillation</td><td> </td> 11/08/2020 07:22:00 PM EDT Paroxysmal atrial fibrillation [facility] Paroxysmal atrial fibrillation POCT AMB EKG <td>POCT AMB EKG</td><td>Rou monica</td><td>10/25/2020 5:52 PM EDT</td><td> Paroxysmal atrial fibrillation</td><td> </td> 10/25/2020 09:52:00 PM EDT Paroxysmal atrial fibrillation [facility] Paroxysmal atrial fibrillation DEBRIDEMENT NAIL ANY METHOD 6/> 10/07/2020 12:00:00 AM EDT [facility] ([facility] THYROID STIMULATING HORMONE TSH <td>TSH</td><td>Routine</td><td>08/10/2020</td><td></td><td> </td> 08/10/2020 12:00:00 AM EST [facility] BASIC METABOLIC PANEL CALCIUM TOTAL <td>BASIC METABOLI C PANEL</td><td>Routine</td><td>08/10/2020</td><td></td><td> </td> 08/10/2020 12:00:00 AM EST [facility] DEBRIDEMENT NAIL ANY METHOD 07/29/2020 12:00:00 AM EST [facility] ([facility] ECG ROUTINE ECG W/LEAST 12 LDS W/I&R <td>POCT AMB EKG</td><td>Routine</td><td>06/22/2020 3:00 PM EST</td><td> Paroxysmal atrial fibrillation</td><td> </td> 06/22/2020 08:00:00 PM EST Paroxysmal atrial fibrillation [facility]ox[facility] [employer] [facility] Dual 06/06/2020 12:00:00 AM EST [facility] ([facility] BLOOD COUNT COMPLETE AUTOMATED <td>CBC</td><td>Routine</td><td>05/24/2020</td><td></td><td> </td> 05/24/2020 12:00:00 AM EST [facility] Electrocardiogram Complete 05/19/2020 12:00:00 AM EST [facility] ([facility]) LARYNGOSCOPY FLEXIBLE FIBEROPTIC DIAGNOSTIC 05/02/2020 12:00:00 AM EDT [facility] ([facility], ) Results ID Date Data Source [id number] 05/08/2021 04:56:00 PM EDT [facility] Name Value Range Interpretation Code Description Data Maggie rce(s) Supporting Document(s) SARS-CoV-2 (COVID 19) NEGATIVE - SARS-CoV-2 (COVID19) [facility] This lab was ordered by [facility] a nd reported by [facility]. ID Date Data Source [id number] 04/26/2021 02:18:00 PM EDT [facility] ([facility], ) Name Value Range Interpretation Code Description Data Maggie rce(s) Supporting Document(s) Surgical Pathology Consult Laboratory test result [facility] ([facility], ) Surgical Pathology Report Name: BERNY NAYAK Collection Date: 04/26/2021 00:00 Received Date: 04/26/2021 14:20 Physician(s): GREGORY NICK MD ADJAPONG, OPOKU, MD Specimen(s) Received A: Material received for consultation, GD, [id number], [facility] Clinical History 80-year-old woman with thyroid goiter an d left false vocal cord lesion. Diagnostic consultation. Diagnosis LARYNX, LEFT FALSE VOCAL CORD, BIOPSY ([id number], 04/20/21): SEVERE SQUAMOUS DYSPLASIA. (SEE MICROSCOPIC DESCRIPTION). 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 [...] Adenomatoid nodule(s) or nodular follicular disease [facility] August 2019 Annual Release Electronically Signed By Rios Riley M.D., Attending Pathologist 04/27/2021 15:29:28 Gross Description Received from [facility] in [place], [place] are 7 H and E stained slides and 6 paraffin blocks, labeled [id number] (A, B1, B2, B3, B4, B5), with [...] developed and their performance characteristics determined by [facility] Pathology department. They have not been cleared or approved by the US Food and Drug Administration. The FDA has determined that such clearance or approval is not necessary. ID Date Data Source [id number] 04/27/2021 03:29:00 PM [facility] Surgical Pathology ReportName: THIERRY NAYAKMRN: [id number] Number: [id number] Date: 04/26/2021 00:00Received Date: 04/26/2021 14:20Physician(s): GREGORY NICK MD ADJAPONG, OPOKU, MDSpecimeshira(s) ReceivedA: Material received for consultation, [facility], [id number], [facility] Eaosbrl45-[id number]-noz woman with thyroid goiter and left false vocal cord lesion. Diagnostic consultation.DiagnosisLARYNX, LEFT FALSE VOCAL CORD, BIOPSY ([id number], 04/20/21): SEVERESQUAMOUS DYSPLASIA. (SEE MICROSCOPIC DESCRIPTION).B) THYROID, RIGHT LOBE, LOBECTOMY ([id number], 04/30/17):ENCAPSULATED/WELL-CIRCUMSCRIBED FOLLICULAR VARIANT OF PAPILLARY CARCINOMA.NODULAR HYPERPLASIA. [...] Electronically Signed By Rios Riley M.D., Attending Amdoqiyigki06/14/2021 15:29:28 Gross DescriptionReceived from [facility] in [place], [place] are 7 H and Estained slides and 6 paraffin blocks, labeled [id number] (A, B1, B2, B3, B4,B5), with the [...] developed and their performance characteristics determined by [facility] Pathology department. They have not been cleared or approved by the USFood and Drug Administration. The FDA has determined that such clearanceor approval is not necessary. Name Value Range Interpretation Code Description Data Maggie rce(s) Supporting Document(s) ID Date Data Source [id number] 01/09/2021 07:19:00 AM EDT [facility] Name Value Range Interpretation Code Description Data Maggie rce(s) Supporting Document(s) Microscopic observation [Identifier] in Unspecified specimen by Non- gynecological cytology method Laboratory test result [facility] ([facility]) SPECIMEN: FNA Left lower isth mus/labeled left thyroid SPECIMEN ADEQUACY: Satisfactory for evaluation CATEGORIZATION: Benign DESCRIPTIONS: Scattered follicular cells noted in a background of hemosiderin laden macrophages, and scattered lymphocytes. COMMENTS: 01/10/2021942 Signed BRADLEY CRISTINA(ASCP) 01/10/2021 0943 (Prelim) Signed KINGA DAVIS MD 01/10/2021 1356 ID Date Data Source [id number] 01/09/2021 07:18:00 AM EDT [facility] ([facility]) Name Value Range Interpretation Code Description Data Maggie rce(s) Supporting Document(s) Microscopic observation [Identifier] in Unspecified specimen by Non- gynecological cytology method Laboratory test result [facility] ([facility]) SPECIMEN: FNA Right middle is thmus/labeled right thyroid Specimen receiced in Cytolyt (light pink)/AFIRMA SPECIMEN ADEQUACY: Satisfactory for evaluation CATEGORIZATION: Benign DESCRIPTIONS: Rare follicualr groups noted in a background of hemosiderin laden macrophages and scattered lymphocytes. COMMENTS: 01/10/2021938 Signed BRADLEY CRISTINA(ASCP) 01/10/2021 0936 (Prelim) Signed KINGA DAVIS MD 01/10/2021 1356 ID Date Data Source [id number] 01/09/2021 07:15:00 AM EDT [facility] ([facility]) Name Value Range Interpretation Code Description Data Maggie rce(s) Supporting Document(s) Microscopic observation [Identifier] in Unspecified specimen by Non- gynecological cytology method Laboratory test result [facility] ([facility]) SPECIMEN: FNA Right middle is thmus/labeled right thyroid Cyotlyt (light pink) and AFIRMA brush received SPECIMEN ADEQUACY: Satisfactory for evaluation CATEGORIZATION: Benign DESCRIPTIONS: Reactive follicular cells noted in a backgound of scattered lymphocytes. COMMENTS: 01/10/2021 - 47 Signed BRADLEY CRISTINA(ASCP) 01/10/2021 0948 (Prelim) Signed KINGA DAVIS MD 01/10/2021 1356 ID Date Data Source [id number] 12/30/2020 01:58:00 PM EDT [facility] ([facility]) Name Value Range Interpretation Code Description Data Maggie rce(s) Supporting Document(s) Parathyrin.intact [Mass/volume] in Serum or Plasma 70.0 pg/mL 18.5-88.0 Normal (applies to non-numeric results) [facility] ([facility]) ID Date Data Source [id number] 12/30/2020 01:58:00 PM EDT [facility] ([facility]) Name Value Range Interpretation Code Description Data Maggie rce(s) Supporting Document(s) Thyroglobulin Quantitative 1417.7 ng/mL 1.5-38.5 Above high normal [facility] ([facility]) Specimen was diluted in order to [...] 0.1 ng/mL . Thyroglobulin measured by Dashawn Chamisal Immunometric Assay Performed at: - [facility] [address] [id number] Manager Medicare: Ariana Hutchison MD, Phone: [phone] Thryoglobulin Antibodies (Rios) Laboratory test result 0.0-0.9 Normal (applies to non-numeric results) [facility] ([facility] ) Thyroglobulin Antibody measured by [employer] an [employer] ID Date Data Source [id number] 12/30/2020 01:58:00 PM EDT [facility]) Name Value Range Interpretation Code Description Data Maggie rce(s) Supporting Document(s) Triiodothyronine (T3) Free [Mass/volume] in Serum or Plasma 3.1 pg/mL 2.2-4.0 Normal (applies to non-numeric results) [facility] Calcium.ionized [Mass/volume] in Serum o r Plasma by Ion-selective membrane electrode (ISE) 4.8 mg/dL 4.5-5.3 Normal (applies to non-numeric results ) [facility] ([facility]) ID Date Data Source [id number] 12/30/2020 01:58:00 PM EDT [facility] ([facility]) Name Value Range Interpretation Code Description Data Maggie rce(s) Supporting Document(s) Free T4 0.79 ng/dL 0.76-1.46 Normal (applies to non-numeric resul ts) [facility] ([facility]) Thyroid Stimulating Hormone 0.295 uIU/ML 0.358-3.740 Below low normal [facility] ([facility]) ID Date Data Source [id number] 12/09/2020 02:58:00 PM EDT [facility] ([facility]) Name Value Range Interpretation Code Description Data Maggie rce(s) Supporting Document(s) Misc Laboratory test result [facility] ([facility]) ID Date Data Source [id number] 12/02/2020 08:12:23 AM EDT [facility] Name Value Range Interpretation Code Description Data Maggie rce(s) Supporting Document(s) &PDF [facility] HCRIYx3yMfTEBhZw05/WYPgtEHCar0YaDRbvNNo9YFvxJQCsD4DmvUrnBYTPB4EFSLnJCHBkDhLvBRCy waW [file] [employer] REP/87vjbFg33CtHCKMNSf4nYrMbawUHDcYJDPbA2Ju [file] ICAgICAgICAgICAgICAgICAgICAgICAgICAgICAgIC AgICAgICAgICAgICAgICAgDQogICAgICAgICAgICAgICAgICAgICAgICAgICAgICAgICAgICAgICAgIC AgICAgICAgICAgICAgICAgICAgICAgICAgICAgICAgICAgICAgICAgICAgICAgICAgICAgICAgICAgDQ ogICAgICAgICAgICAgICAgICAgICAgICAgICAgICAg ICAgICAgICAgICAgICAgICAgICAgICAgICAgICAgICAgICAgICAgICAgICAgICAgICAgICAgICAgICAg ICAgICAgICAgDQogICAgICAgICAgICAgICAgICAgICAgICAgICAgICAgICAgICAgICAgICAgICAgICAg ICAgICAgICAgICAgICAgICAgICAgICAgICAgICAgIC AgICAgICAgICAgICAgICAgICAgDQogICAgICAgICAgICAgICAgICAgICAgICAgICAgICAgICAgICAgIC AgICAgICAgICAgICAgICAgICAgICAgICAgICAgICAgICAgICAgICAgICAgICAgICAgICAgICAgICAgIC AgDQogICAgICAgICAgICAgICAgICAgICAgICAgICAg ICAgICAgICAgICAgICAgICAgICAgICAgICAgICAgICAgICAgICAgICAgICAgICAgICAgICAgICAgICAg ICAgICAgICAgICAgDQogICAgICAgICAgICAgICAgICAgICAgICAgICAgICAgICAgICAgICAgICAgICAg ICAgICAgICAgICAgICAgICAgICAgICAgICAgICAgIC AgICAgICAgICAgICAgICAgICAgICAgDQogICAgICAgICAgICAgICAgICAgICAgICAgICAgICAgICAgIC AgICAgICAgICAgICAgICAgICAgICAgICAgICAgICAgICAgICAgICAgICAgICAgICAgICAgICAgICAgIC AgICAgDQogICAgICAgICAgICAgICAgICAgICAgICAg ICAgICAgICAgICAgICAgICAgICAgICAgICAgICAgICAgICAgICAgICAgICAgICAgICAgICAgICAgICAg ICAgICAgICAgICAgICAgDQogICAgICAgICAgICAgICAgICAgICAgICAgICAgICAgICAgICAgICAgICAg ICAgICAgICAgICAgICAgICAgICAgICAgICAgICAgIC VnQIHmJXUpECAdJKHhOGUgAVIvNUQvKWHoZGs9F3ubVYRyIQWaKR4sPVa6Nm1+OQmUDuXwHYP6xhGsvZ 7YFY9uy5NtERowCIGdw8RrBUh8EA0GRINcETduAR0SSEjsvf1SONEnDRPsoVVCd7hkWiIxEUF5HWRgYu cuLC2WXPApT7untcNcNUTaPGFVWFyzMHOXXV3QXkNz H4HvnO94AQBUYn1+OUsbwxOnOiuVWxV0DPDmz0PwEIq0DJ7VBDAtKSgjJB8YAZNxvQ8hUSvbJN5BTbDs HqJqTBJXIbQgV35jjYAhTQy7W1MlJmOyMOUqEqiuPOYoOWxxFjTcPZHeVmTvMCuiGX8+ID4+ABngVW5C UMxuleTcQTPlVh6SSEHgLYX6KMXboOJjQsApSTWEZJ nuQG4KiHZgHWY6rZ9gNCbqJLPcTLApU3gETdJabOedRF73bNfmqxVzgOAqTBw+Yx5DWG8ug9BcZWc1lt ZwFWguKZE2MStmTMHyNFAgUSBwAAE2ERX1HZCADfCwAZMvDYCcUEsdMTPjFCMzhr8JBLPySLIoKgP7DM GrKHQlFWJkVEonWZRyMOC6USr6VPSqWHCzBF6BVcJi XOPdKXUaZYdzXKLrFALnky7ORQJoGHWvFKMvPyEzBEKiUVRgRRqvJZUvTCH5NaMfEXHmOJSfOH7COaGb UTJeFNwgZrPpKSHvEEQtnk5TSQAmUFCkHcM6DFNwPJRcAAKgUKesHIPfDIB0DUD0MMUfKTNfPA9EJfBt ICWpOFu6MtMnROSfQSZlpq0XMHWxBVFbGQbmDxFfCU VmDVFrBSjlFAUfIFF1QkD7UMWpBNTqFN3DWpLlVHWuOWn6DcgwEPBoQYLetn0VZDSiRHGmCPP6UIXhJC RpXLUmMNvwVZZiQABePFPnCOFqIEGwYD6LGnTbYOLgJFIsLPThDESjGJNaqp8JTODnXCMgGLL9WANxNM WvGIPvIQukCRGpVIIyPUC9JGAkETFzVK4GJeByFCYk BUG9PHanJWUbUKFjvf4AQNDnLXUdDyp0DtRbOLHoFOYjGEjpDIEqOTEqHUOxLMYuXSCpFE5RPhQwROSu AKB3IyEnRLPjQOMoxn7FVACfBSIpYdi2PTSsOLIvDQFyHUwoLWNlLTO9GGW5SEDwDIHwEW2GQrImWMVa NHLoLfHeVNTkYHIrvg6UKXMdOLAkEKX6XBFlRQZdBF WiRXrhRIKvDHZ0CZSoVODrGNQfQG5OXyLjUHXlEFTqCNFiPCRpRPYssu8WCOEeCAFlVQSmQbByPCGhKM SnPKjnWWWyWAE0ITH3EZAxOTUiCW0BEbVeIDDiYMB9HwWzDLJkAEGcnk5PDJJkNVXwIxNnYZRoJBCnBX VpFYvsHCAiNYA4EmX7ZAPiZAMgVN0KBjZjLDNlAXuo UMVeECXwEBDzvj8KqNUizSbggs3HEKxCWm0PjSyfOCQ5HOabTq4jtKQkTMTbMJLNDa1XycVxGXSiPNNQ OYgyQGLiAElcJrBjBrHrMYOdUSc8FyIeViCqKXCkHQQkPYV2NZK0OhP1ILSmXeNsGSV4F6G4Xcf9PAEc BFW1R4OaJmI1SVd5KQZ+WO2aWJb+Dx6Oe2LqxeC4peXuVPbnNPO0XQ5XTWKZH2BAQp== ID Date Data Source [id number] 11/15/2020 12:57:00 PM EDT [facility] ([facility]) Name Value Range Interpretation Code Description Data Maggie rce(s) Supporting Document(s) PDFReport Laboratory test result MEDENT ([facility]) FVC-Pre 1.45 L [facility] ([facility]) FVC-%Pred-Pre 54 L [facility] ([facility]) FVC-Pred 2.65 L [facility] ([facility]) FVC-LLN 1.93 L [facility] ([facility]) Fev1-Pred 1.97 L [facility] ([facility]) Fev1-Pre 1.26 L [facility] ([facility]) Fev1-%Pred-Pre 64 L [facility] ([facility]) Fev1-LLN 1.36 L [facility] ([facility]) Fev6-Pred 2.50 L [facility] ([facility] [place], ) Fev6-Pre 1.45 L [facility] ([facility]) Fev6-%Pred-Pre 58 L [facility] ([facility]) Kph2vuv-Qao 87 % [facility] ([facility]) Fev6-LLN 1.80 L [facility] ([facility]) Bmc6mdb-Zfmb 73 % [facility] ([facility]) Uvm0str-Cjqv 94 % [facility] ([facility]) Zor4ahx-CQD 64 % [facility] ([facility]) Zeg8esq-%Pred-Pre 118 % [facility] ([facility]) Gez8ick-%Pred-Pre 105 % [facility] ([facility]) FEFMax-Pred 4.75 L/E/sec [facility] ([facility]) Uoi0cxb-Hqe 100 % [facility] ([facility]) FEFMax-LLN 2.98 L/E/sec [facility] ([facility]) FEFMax-Pre 5.30 L/E/sec [facility] ([facility]) FEFMax-%Pred-Pre 111 L/E/sec [facility] ([facility]) Jyr0512-%Pred-Pre 123 L/E/sec [facility] ([facility]) Uns1125-KQU 0.08 L/E/sec [facility] ([facility]) Rso9107-Cnpj 1.36 L/E/sec [facility] ([facility]) Lsk5421-Xqg 1.69 L/E/sec [facility] ([facility]) ExpTime-Pre 5.89 sec [facility] ([facility]) Uro6exw2-Ggkx 77 % [facility] ([facility]) Ryx3jzb2-Prj 87 % [facility] ([facility]) Wot3gvg5-QJS 68 % [facility] ([facility] ) Fek7ikz7-%Pred-Pre 112 % [facility] ([facility], ) ID Date Data Source [id number] 11/09/2020 08:27:54 PM EDT [facility] [place] [facility] Name Value Range Interpretation Code Description Data Maggie rce(s) Supporting Document(s) FREE THYROXINE @ 0.99 ng/dL (0.76-1.46) [facility] ID Date Data Source KAISER CHEST 2 VIEW 11/03/2020 12:00:00 AM EDT eCW1 ([facility]) Name Value Range Interpretation Code Description Data Maggie rce(s) Supporting Document(s) Laboratory studies (set) KAISER CHEST 2 VIEW eCW1 ([facility]) ID Date Data Source [id number] 09/30/2020 11:23:23 AM EDT [facility] Name Value Range Interpretation Code Description Data Maggie rce(s) Supporting Document(s) &PDF [facility] QAVORa7mHuQRUnHk87/XCTzeLSGxo1CmNSevGZs0QFfvQSGqV8VdfUauMAGGE4BNVTwZRRJlLpRkFIXf waW [file] ICAgICAgICAgICAgICAgICAgICAgICAgICAgICAgICAgICAgICAgICAgICAgICAgICAgICAgICAgICAg LKEeFWDtGLDxUK7TEBIuYZRkGEMmSODiQNZyPPTfVY AgICAgICAgICAgICAgICAgICAgICAgICAgICAgICAgICAgICAgICAgICAgICAgICAgICAgICAgICAgIC GuIYElWIGzYAIoNXCsSETjEWEsKC4LQACzATVcRKHfUPZfIFGjKMUcYQArHVDgKBOmYRDdVGXbWEUgMH AgICAgICAgICAgICAgICAgICAgICAgICAgICAgICAg OKDmEKAoGERyHTNyTNVuDJSsNBPlMDMwGFKeQXHyDG0PONYqJIMeSNLrZJLxJGPqUUJoZTOlOXVyOZQe ICAgICAgICAgICAgICAgICAgICAgICAgICAgICAgICAgICAgICAgICAgICAgICAgICAgICAgICAgICAg BSOcAVBtPCWrJHUfBT7AEXQgMFIgAYBuQGUmHXJvCW AgICAgICAgICAgICAgICAgICAgICAgICAgICAgICAgICAgICAgICAgICAgICAgICAgICAgICAgICAgIC RdBDRySGEaIOZsTOPsBKPnNRPwFHFrRY6NVMOtIKGlLFGrDWMwECQsFEAuMBViYDZjRYYvHOOmVYMuTN AgICAgICAgICAgICAgICAgICAgICAgICAgICAgICAg DQIeQCHeHNAsZDHzMVHqFEWbWQQnHFEjTXYhCOMbBOBaFJ8SMQPkLWKfZASiDFRpHLCcAXAxDAWwAYMr ICAgICAgICAgICAgICAgICAgICAgICAgICAgICAgICAgICAgICAgICAgICAgICAgICAgICAgICAgICAg XBVbGUZjTPDiBVXwNCWmNW2TZKXgJRSiSAVhCHRaSA AgICAgICAgICAgICAgICAgICAgICAgICAgICAgICAgICAgICAgICAgICAgICAgICAgICAgICAgICAgIC MeTGXsZJNuDJRiTIMiAQBgNZZtXYGuGDYgZT2UHUHzHOOrQTKcTTAnDMEqPWLuSQWfTNUtGSEeSKCrPB AgICAgICAgICAgICAgICAgICAgICAgICAgICAgICAg CJCkKJTwRIGsBGQmDXEyOXLxEILuSOZuPMDaCHZgGIWzWHMcAA4JCBKtGFBiVAChJJRnCRMbYLPjMTVi ICAgICAgICAgICAgICAgICAgICAgICAgICAgICAgICAgICAgICAgICAgICAgICAgICAgICAgICAgICAg NVUzGCFcSZKmXRGnQILzEPXeKD8GPE39sKKtp4Q5RA BiVS9oann/Yr2LTXwlbkKnrLAuLF7MVrNnZV0ibd7QCmKmNX4geq1XJGrLWaGrO7K2pGYfHEFmFZCMIv BxP65eHVngWf05MAflXYSiEgEjOSg6Zy0QDwSfJ3huLIAbJbP7WLCpGnQwGItzSF2Fi5JedJDtJQs+Pg 7RJL3hd4ObIMuiULFpQT7jdk1MQPcOIxLzJ6X8zBJe U6O3UTawYj4DKNTtRIDyNHxyXBYXOGksKM3SFE4feyY7VS3RvQLfCTVtFWFhiUHtSKl7A69yhKSgCIoo EB1ZMDE+Sherry+Ix0XWKKtWRXuQCQuTiPyVHTZQdTfX43nfBOtHBSxEUA0THRiBi2UDGRoQ0NwtzDwqApk vmLvBKMsTCELLY7DPJljdbQnkAFlgQpqOX35yCmhSF 5SKp6RVyBfCD3lxa0VkDSwCk1XETOkTN5TSBGnDPKbQKOiPTE7OSZnTxWuPMahORXsBLGeTCM2DZKjVT NdTH6AKgWnIUGrUWV1SUOmVDJvXHZiit0YDMVfHLKnXwA3YPInOPPiJDVzYFjiHJEiCMGlMPs5BVCjUT BtBN5EBmXnQLSaORN5EJNkDFNdNHMdtx1KLXObERHi Qpy0ISRwWHKeIMShPIkiOEOaHOGmPJJ2OFFlSNSrYA6SPrIkGSAtZOUyIPCuKBBtALTkkg9BVTEsIUTe FKL9CuPjQWFfFTBeICggQGFtNFS4FiXbRMJrBVKrJW9KKwGpQJDvUJX1BKIdFLJqTOXtjq5UKVWrIHQl MMGeBLEzYMYpWNWcLPiuSLTnHIB6GNy7WDGgQYEoRD 7AOwUcEOTcKVN7TDpfVRXaYGVcoo5NOLPgVZMtIte9BBZyNXYrBZHxFVrqAGHsNGLkNyG8PKWtZDQaUH 9HNjBdOTUdERX6XHSaRLInHPDiad8QXSDmKEPgZvUpGERwCNDmNRHfBQouOFXzQTM3RODtONMoCPQxLB 5CNfFsEBinVFQIOyv3VFveF7x8FCMmZQ2WR8Mhi3Qx IZptIJPFVIrkFJ7ojpFfTNRyDk5VG0iNSwv8JZX4TcpkQgLwEXMcILO8IpCzGXI9AZO9BFLoVpLmSU8r TGw3ZKMpGPZiAEVnS9WwChlmLEOwLDrrGEl9LpB7MZSbQaQbCO2NCd8ZZbZ3PKG7wPZaWo3TWCe9HqeQ AeDmAA1KKKm= ID Date Data Source FREE T4 & TSH PANEL 08/10/2020 12:00:00 AM EST eCW1 ([facility]) Name Value Range Interpretation Code Description Data Maggie rce(s) Supporting Document(s) 0.354 0.358-3.740 THYROID STIMULATING HORM ONE eCW1 ([facility]) 0.82 0.76-1.46 FREE T4 eCW1 ([facility]) ID Date Data Source FREE T3 08/10/2020 12:00:00 AM EST eCW1 ([facility]) Name Value Range Interpretation Code Description Data Maggie rce(s) Supporting Document(s) 3.0 2.2-4.0 W1 ([facility]) ID Date Data Source [id number] 07/02/2020 10:41:48 AM EST [facility] Name Value Range Interpretation Code Description Data Maggie rce(s) Supporting Document(s) &PDF [facility] GPFRJo0kRvBAGrLo63/FGUamOITja3OdSBhsKLv0JFfeQJNhM9KhyIvzSRJYJ1BDQPtATHCrQyFhAEAp FcG [file] LiFlOC1XJl9JDtU6OUR9wOPwYc1HNJm0NKvMZtBqJV1PMJl= ID Date Data Source [id number] 05/30/2020 03:48:[address] [address]Mhepbfy Name: BERNY NAYAKDOB: 1940Sex: FOrdering Provider: Veronica Chance Prov: Veronica Nova Provider: Procedure Performed: XR CHEST PORTABLEExam Date: 05/30/2020 15:43MRN: [id number] Number: [id number] Class: OutpatientAccount #: [id number] for Exam: ppmTechnique: AP portable view obtained.Comparison: [...] KELLEN VALENCIA On 05/30/2020 3:48 PMWorkstation ID: [id number] Name Value Range Interpretation Code Description Data Maggie rce(s) Supporting Document(s) ID Date Data Source [id number] 05/30/2020 03:24:26 PM EST [facility] Name Value Range Interpretation Code Description Data Maggie rce(s) Supporting Document(s) &PDF [facility] MWCUVu1fNgDLKxUb98/MILlxLFZvh8KjVFjmMDo9IJgvIDGpW5QsaGtjSBWEZ1RDSRkKHQIrAwOsHWHc FcG [file] Di1PJoB5DMO0yDVjGl8HFQj2LSKISuQoVT5LQSl= ID Date Data Source [id number] 05/25/2020 10:00:00 AM EST [facility] Name Value Range Interpretation Code Description Data Maggie rce(s) Supporting Document(s) SARS coronavirus 2 RNA [facility] This lab was ordered by [facility] and reported by [facility]. ID Date Data Source [id number] 05/09/2020 12:51:00 PM EDT [facility] ([facility] [place], ) Name Value Range Interpretation Code Description Data Maggie rce(s) Supporting Document(s) Microscopic observation [Identifier] in Unspecified specimen by Non- gynecological cytology method Laboratory test result [facility] ([facility]) SPECIMEN: FNA Left thyroid Specimen receceived in Cytolyt SPECIMEN ADEQUACY: Satisfactory for evaluation CATEGORIZATION: No Malignancy identified DESCRIPTIONS: Scattered groups of follicular cells, some with hurthle cell changes and rare cell with degenerative atypia, seen in a background of foamy macrophages and debris. COMMENTS: 05/10/20201434 Signed BRADLEY CRISTINA(ASCP) 05/10/2020 0738 (Prelim) Signed Glen Rubio MD 05/10/2020 143 ID Date Data Source [id number] 05/09/2020 12:50:00 PM EDT [facility] ([facility]) Name Value Range Interpretation Code Description Data Maggie rce(s) Supporting Document(s) Microscopic observation [Identifier] in Unspecified specimen by Non- gynecological cytology method Laboratory test result [facility] ([facility]) SPECIMEN: FNA Isthmus nodule Specimen received in Cytolyt SPECIMEN ADEQUACY: Satisfactory for evaluation CATEGORIZATION: No Malignancy identified DESCRIPTIONS: Groups of follicular cells noted in a background of macrophages and several multinucleated histiocytes/giant cells. COMMENTS: 05/10/20201436 Signed BRADLEY CRISTINA([facility]) 05/10/2020 07 (Prelim) Signed Glen Rubio MD 05/10/20201436 ID Date Data Source [id number] 05/09/2020 12:49:00 PM EDT [facility] ([facility]) Name Value Range Interpretation Code Description Data Maggie rce(s) Supporting Document(s) Microscopic observation [Identifier] in Unspecified specimen by Non- gynecological cytology method Laboratory test result [facility] ([facility]) SPECIMEN: FNA Right thyroid Specimen received [...] clinical findings is recommended. See also reports [id number] and [id number] 05/10/2020 - 1440 Signed BRADLEY CRISTINA(ASCP) 05/10/2020 0725 (Prelim) Signed Glen Rubio MD 05/10/2020 1446 Procedure Social History Code Duration Value Status Description Data Source(s ) Alcohol intake 05/18/2021 12:00:00 AM EDT Lifetime non-drinker (finding) completed Lifetime non-drinker (finding) [facility] Smoking 04/18/2021 12:00:00 AM EDT Never Smoker completed Never S moker eCW1 ([facility]) Smoking 04/18/2021 12:00:00 AM EDT Never Smoker completed Never S moker eCW1 ([facility]) Smoking 04/18/2021 12:00:00 AM EDT Never Smoker completed Never S moker eCW1 ([facility]) Smoking 02/09/2021 12:00:00 AM EDT Never Smoker completed Never S moker eCW1 ([facility]) Smoking 02/09/2021 12:00:00 AM EDT Never Smoker completed Never S moker eCW1 ([facility]) Smoking 02/09/2021 12:00:00 AM EDT Never Smoker completed Never S moker eCW1 ([facility]) Smoking 01/20/2021 12:00:00 AM EDT Never Smoker completed Never S moker eCW1 ([facility]) Smoking 12/19/2020 12:00:00 AM EDT Patient has never smoked co mpleted Patient has never smoked [facility] ([facility] Alcohol intake 12/14/2020 12:00:00 AM EDT Lifetime non-drinker (finding) completed Lifetime non-drinker (finding) [facility] Alcohol intake 11/21/2020 12:00:00 AM EDT Lifetime non-drinker (finding) completed Lifetime non-drinker (finding) [facility] Alcohol intake 11/08/2020 12:00:00 AM EDT Lifetime non-drinker (finding) completed Lifetime non-drinker (finding) [facility] Smoking 11/03/2020 12:00:00 AM EDT Never Smoker completed Never S moker eCW1 ([facility]) Smoking 11/03/2020 12:00:00 AM EDT Never Smoker completed Never S moker eCW1 ([facility]) Smoking 11/03/2020 12:00:00 AM EDT Never Smoker completed Never S moker eCW1 ([facility]) Smoking 09/16/2020 12:00:00 AM EST Never Smoker completed Never S moker eCW1 ([facility]) Smoking 09/16/2020 12:00:00 AM EST Never Smoker completed Never S moker eCW1 ([facility]) Smoking 09/16/2020 12:00:00 AM EST Never Smoker completed Never S moker eCW1 ([facility]) Smoking 09/16/2020 12:00:00 AM EST Never Smoker completed Never S moker eCW1 ([facility]) Smoking 08/10/2020 12:00:00 AM EST Never Smoker completed Never S moker eCW1 ([facility]) Smoking 06/16/2020 12:00:00 AM EST Never Smoker completed Never S moker eCW1 ([facility]) Smoking 06/16/2020 12:00:00 AM EST Never Smoker completed Never S moker eCW1 ([facility]) Alcohol intake 05/31/2020 12:00:00 AM EST Never completed [facility] Smoking 05/31/2020 12:00:00 AM EST Never smoker completed Never s moker [facility] Smoking 04/22/2020 12:00:00 AM EDT Never Smoker completed Never S moker eCW1 ([facility]) Smoking 04/22/2020 12:00:00 AM EDT Never Smoker completed Never S moker eCW1 ([facility]) Vital Signs ID Date Data Source UNK Name Value Range Interpretation Code Description Data Source(s) Systolic blood pressure 118 mm[Hg] 118 mm[Hg] [facility] Diastolic blood pressure 70 mm[Hg] 70 mm[Hg] [facility] Heart rate 74 /min 74 /min [facility] Body height 165.1 cm 165.1 cm [facility] Body weight 95.255 kg 95.255 kg [facility] Body mass index (BMI) [Ratio] 34.95 kg/m2 34.95 kg/m2 [facility] Oxygen saturation in Arterial blood by Pulse oximetry 96 % 96 % [facility] Body surface area Derived from formula 2.01 m2 2.01 m2 [facility] ([facility], ) Body height 65 [in_i] 65 [in_i] [facility] ([facility] [place], ) 5'5" Body weight 208.00 [lb_av] 208.00 [lb_av] MEDEN T ([facility], ) Body mass index (BMI) [Ratio] 34.6 kg/m2 34.6 k g/m2 [facility] ([facility]) [place] body weight 125 [lb_av] 125 [lb_av] MEDEN T ([facility], ) Body weight 94.349 kg 94.349 kg [facility] ([facility]) Body weight 216 [lb_av] 216 [lb_av] eCW1 ([facility]) Body height [in_i] eCW1 ([facility]) Body mass index (BMI) [Ratio] 37.66 kg/m2 37.66 kg/m2 eCW1 ([facility]) Heart rate 60 /min 60 /min eCW1 ([facility]) Respiratory rate 18 /min 18 /min eCW1 ([facility]) Body temperature 96.4 [degF] 96.4 [degF] eCW1 ( [facility]) Systolic blood pressure 150 mm[Hg] 150 mm[Hg] e CW1 ([facility]) Diastolic blood pressure 82 mm[Hg] 82 mm[Hg] eCW1 ([facility]) Body height [in_i] eCW1 ([facility]) Body weight 213 [lb_av] 213 [lb_av] eCW1 ([facility]) Systolic blood pressure 110 mm[Hg] 110 mm[Hg] e CW1 ([facility]) Diastolic blood pressure 74 mm[Hg] 74 mm[Hg] eCW1 ([facility]) Body mass index (BMI) [Ratio] 37.14 kg/m2 37.14 kg/m2 eCW1 ([facility]) Heart rate 60 /min 60 /min eCW1 ([facility]) Respiratory rate 19 /min 19 /min eCW1 ([facility]) Body temperature 98 [degF] 98 [degF] eCW1 ([facility]) Body weight 97.524 kg 97.524 [facility] [place], ) Body weight 215.00 [lb_av] 215.00 [lb_av] MEDEN T ([facility], ) [place] body weight 125 [lb_av] 125 [lb_av] MEDEN T ([facility], ) Body mass index (BMI) [Ratio] 35.8 kg/m2 35.8 k g/m2 [facility] ([facility], ) Body surface area Derived from formula 2.04 m2 2.04 m2 [facility] ([facility], ) Body height 65 [in_i] 65 [in_i] [facility] ([facility] [place], ) 5'5" Body height [in_i] eCW1 ([facility]) Body weight 215.2 [lb_av] 215.2 [lb_av] eCW1 [facility] Systolic blood pressure 130 mm[Hg] 130 mm[Hg] e CW1 ([facility]) Diastolic blood pressure 68 mm[Hg] 68 mm[Hg] eCW1 ([facility]) Body mass index (BMI) [Ratio] 37.52 kg/m2 37.52 kg/m2 W1 ([facility]) Body height 65 [in_i] 65 [in_i] [facility] 5'5" Body surface area Derived from formula 2.04 m2 2.04 m2 [facility] ([facility]) Body weight 216.00 [lb_av] 216.00 [lb_av] MEDEN T ([facility]) Body mass index (BMI) [Ratio] 35.9 kg/m2 35.9 k g/m2 [facility] [place] body weight 125 [lb_av] 125 [lb_av] MEDEN T ([facility]) Body weight 97.978 kg 97.978 kg [facility] ([facility]) Body surface area Derived from formula 2.04 m2 2.04 m2 [facility] ([facility]) Body height 65 [in_i] 65 [in_i] [facility] ([facility]) 5'5" Body weight 216.00 [lb_av] 216.00 [lb_av] MEDEN T ([facility]) Body mass index (BMI) [Ratio] 35.9 kg/m2 35.9 k g/m2 [facility] ([facility]) [place] body weight 125 [lb_av] 125 [lb_av] MEDEN T ([facility]) Body weight 97.978 kg 97.978 kg [facility] ([facility]) Systolic blood pressure 120 mm[Hg] 120 mm[facility]Hg[facility] Diastolic blood pressure 70 mm[Hg] 70 mm[Hg] [facility] ([facility]) Heart rate 79 /min 79 /min [facility] ([facility]) Oxygen saturation in Arterial blood by Pulse oximetry 94 % 94 % [facility] ([facility]) Body temperature 97.0 [degF] 97.0 [degF] [facility] ([facility]) Body height 65 [in_i] 65 [in_i] [facility] ([facility]) 5'5" Body weight 216.00 [lb_av] 216.00 [lb_av] MEDEN T ([facility]) Body mass index (BMI) [Ratio] 35.9 kg/m2 35.9 k g/m2 [facility] ([facility]) [place] body weight 125 [lb_av] 125 [lb_av] MEDEN T ([facility]) Body weight 97.978 kg 97.978 kg [facility] ([facility]) Body surface area Derived from formula 2.04 m2 2.04 m2 [facility] ([facility]) Systolic blood pressure 146 mm[Hg] 146 mm[Hg] [facility] Diastolic blood pressure 90 mm[Hg] 90 mm[Hg] [facility] Heart rate 60 /min 60 /min [facility] Body height 165.1 cm 165.1 cm [facility] Body weight 98.431 kg 98.431 kg [facility] Body mass index (BMI) [Ratio] 36.11 kg/m2 36.11 kg/m2 [facility] Oxygen saturation in Arterial blood by Pulse oximetry 95 % 95 % [facility] Systolic blood pressure 160 mm[Hg] 160 mm[Hg] [facility] Diastolic blood pressure 90 mm[Hg] 90 mm[Hg] [facility] Heart rate 65 /min 65 /min [facility] Body height 165.1 cm 165.1 cm [facility] Body weight 100.245 kg 100.245 kg [facility] Body mass index (BMI) [Ratio] 36.78 kg/m2 36.78 kg/m2 [facility] Oxygen saturation in Arterial blood by Pulse oximetry 95 % 95 % [facility] Body mass index (BMI) [Ratio] 36.9 kg/m2 36.9 k g/m2 [facility] ([facility]) Body weight 222.00 [lb_av] 222.00 [lb_av] [facility] [place] body weight 125 [lb_av] 125 [lb_av] [facility] ([facility]) Body weight 100.699 kg 100.699 kg [facility] ([facility] [place], ) Body surface area Derived from formula 2.07 m2 2.07 m2 [facility] ([facility]) Systolic blood pressure 132 mm[Hg] 132 mm[Hg] [facility] ([facility]) Diastolic blood pressure 78 mm[Hg] 78 mm[Hg] [facility] ([facility]) Heart rate 60 /min 60 /min [facility] ([facility]) Oxygen saturation in Arterial blood by Pulse oximetry 98 % 98 % [facility] ([facility]) Body temperature 96.7 [degF] 96.7 [degF] [facility] ([facility]) Body height 65 [in_i] 65 [in_i] [facility] ([facility]) 5'5" Diastolic blood pressure 90 mm[Hg] 90 mm[Hg] [facility] Systolic blood pressure 136 mm[Hg] 136 mm[Hg] [facility] Body mass index (BMI) [Ratio] 36.94 kg/m2 36.94 kg/m2 [facility] Oxygen saturation in Arterial blood by Pulse oximetry 94 % 94 % [facility] Heart rate 75 /min 75 /min [facility] Body height 165.1 cm 165.1 cm [facility] Body weight 100.699 kg 100.699 kg [facility] Body weight 221 [lb_av] 221 [lb_av] eCW1 ([facility]) Body height [in_i] eCW1 ([facility]) Body mass index (BMI) [Ratio] 38.53 kg/m2 38.53 kg/m2 eCW1 ([facility]) Heart rate 77 /min 77 /min eCW1 ([facility]) Respiratory rate 18 /min 18 /min eCW1 ([facility]) Body temperature 97.7 [degF] 97.7 [degF] eCW1 ( [facility]) Systolic blood pressure 123 mm[Hg] 123 mm[Hg] e CW1 ([facility]) Diastolic blood pressure 79 mm[Hg] 79 mm[Hg] eCW1 ([facility]) Systolic blood pressure 126 mm[Hg] 126 mm[Hg] [facility] Diastolic blood pressure 68 mm[Hg] 68 mm[Hg] [facility] Body weight 100.517 kg 100.517 kg [facility] Body mass index (BMI) [Ratio] 36.88 kg/m2 36.88 kg/m2 [facility] Oxygen saturation in Arterial blood by Pulse oximetry 98 % 98 % [facility] Heart rate 74 /min 74 /min [facility] Body height 165.1 cm 165.1 cm [facility] Body weight 216 [lb_av] 216 [lb_av] eCW1 ([facility] [facility]) Body height [in_i] eCW1 ([facility]) Body mass index (BMI) [Ratio] 37.66 kg/m2 37.66 kg/m2 W1 ([facility]) Heart rate 66 /min 66 /min eCW1 ([facility]) Respiratory rate 19 /min 19 /min eCW1 ([facility]) Body temperature 97.8 [degF] 97.8 [degF] eCW1 ( [facility]) Systolic blood pressure 143 mm[Hg] 143 mm[Hg] e CW1 ([facility]) Diastolic blood pressure 71 mm[Hg] 71 mm[Hg] eCW1 ([facility]) Body height [in_i] eCW1 ([facility]) Body weight 217 [lb_av] 217 [lb_av] eCW1 ([facility]) Respiratory rate 18 /min 18 /min eCW1 ([facility]) Body temperature 98 [degF] 98 [degF] eCW1 ([facility]) Systolic blood pressure 152 mm[Hg] 152 mm[Hg] e CW1 ([facility]) Diastolic blood pressure 84 mm[Hg] 84 mm[Hg] eCW1 ([facility]) Body mass index (BMI) [Ratio] 37.83 kg/m2 37.83 kg/m2 eCW1 ([facility]) Heart rate 62 /min 62 /min eCW1 ([facility]) Systolic blood pressure 142 mm[Hg] 142 mm[Hg] [facility] Diastolic blood pressure 60 mm[Hg] 60 mm[Hg] [facility] Heart rate 60 /min 60 /min [facility] Body height 165.1 cm 165.1 cm [facility] Body weight 100.245 kg 100.245 kg [facility] Body mass index (BMI) [Ratio] 36.78 kg/m2 36.78 kg/m2 [facility] Oxygen saturation in Arterial blood by Pulse oximetry 98 % 98 % [facility] Body weight 219 [lb_av] 219 [lb_av] eCW1 ([facility]) Body height [in_i] eCW1 ([facility]) Body mass index (BMI) [Ratio] 38.18 kg/m2 38.18 kg/m2 eCW1 ([facility]) Heart rate 60 /min 60 /min eCW1 ([facility]) Respiratory rate 18 /min 18 /min eCW1 ([facility]) Body temperature 98.9 [degF] 98.9 [degF] eCW1 ( [facility]) Systolic blood pressure 136 mm[Hg] 136 mm[Hg] e CW1 ([facility]) Diastolic blood pressure 79 mm[Hg] 79 mm[Hg] eCW1 ([facility]) Body weight 214.00 [lb_av] 214.00 [lb_av] MEDEN T ([facility], ) [place] body weight 125 [lb_av] 125 [lb_av] MEDEN T ([facility], ) Body weight 97.070 kg 97.070 kg MEDWEN ([facility] [place], ) Body surface area Derived from formula 2.04 m2 2.04 m2 MEDWEN ([facility], ) Body height 65 [in_i] 65 [in_i] [facility] ([facility]) 5'5" Body mass index (BMI) [Ratio] 35.6 kg/m2 35.6 k g/m2 [facility]) Body weight 218.38 [lb_av] 218.38 [lb_av] MEDEN T ([facility]) Body mass index (BMI) [Ratio] 37.3 kg/m2 37.3 k g/m2 [facility] ([facility]) Body height 65 [in_i] 65 [in_i] [facility] ([facility]) 5'5" [place] body weight 125 [lb_av] 125 [lb_av] MEDEN T ([facility]) Body weight 101.606 kg 101.606 kg [facility] ([facility]) Body weight 224.00 [lb_av] 224.00 [lb_av] MEDEN T ([facility]) Body weight 221.12 [lb_av] 221.12 [lb_av] eCW1 ([facility]) Body height [in_i] eCW1 ([facility]) Body mass index (BMI) [Ratio] 38.55 kg/m2 38.55 kg/m2 eCW1 ([facility]) Heart rate 54 /min 54 /min eCW1 ([facility]) Respiratory rate 18 /min 18 /min eCW1 ([facility]) Body temperature 98 [degF] 98 [degF] eCW1 ([facility]) Systolic blood pressure 143 mm[Hg] 143 mm[Hg] e CW1 ([facility]) Diastolic blood pressure 86 mm[Hg] 86 mm[Hg] eCW1 ([facility]) Patient Treatment Plan of Care Planned Activity Planned Date Details Description Data Source (s) Metoprolol Tartrate 50 MG Oral Tablet 05/18/2021 12:00:00 AM EDT [facility] Digoxin 0.125 MG Oral Tablet 05/12/2021 12:00:00 AM EDT [facility] Metoprolol Tartrate 25 MG Oral Tablet 05/12/2021 12:00:00 AM EDT [facility] midodrine hydrochloride 5 MG Oral Tablet 05/12/2021 12:00:00 AM EDT [facility] Lisinopril 10 MG Oral Tablet 04/21/2021 12:00:00 AM EDT [facility] rivaroxaban 20 MG Oral Tablet [Xarelto] 12/29/2020 12:00:00 AM EDT [facility] Metoprolol Tartrate 25 MG Oral Tablet 11/21/2020 12:00:00 AM EDT [facility] Fluconazole 150 MG Oral Tablet [Diflucan] 11/03/2020 12:00:00 AM ED T eCW1 ([facility]) Amoxicillin 875 MG Oral Tablet 11/03/2020 12:00:00 AM EDT eCW1 ([facility]) Fluconazole 150 MG Oral Tablet 11/03/2020 12:00:00 AM EDT [facility] Amoxicillin 875 MG Oral Tablet 11/03/2020 12:00:00 AM EDT [facility] Fluconazole 150 MG Oral Tablet [Diflucan] 11/03/2020 12:00:00 AM ED T eCW1 ([facility]) Amoxicillin 875 MG Oral Tablet 11/03/2020 12:00:00 AM EDT eCW1 ([facility]) Fluconazole 150 MG Oral Tablet [Diflucan] 11/03/2020 12:00:00 AM ED T eCW1 ([facility]) Amoxicillin 875 MG Oral Tablet 11/03/2020 12:00:00 AM EDT eCW1 ([facility]) Potassium Chloride 10 MEQ Extended Release Oral Tablet 06/22/2020 12:00:00 AM EST [facility] rivaroxaban 20 MG Oral Tablet [Xarelto] 06/22/2020 12:00:00 AM EST [facility] tizanidine 2 MG Oral Tablet 06/16/2020 12:00:00 AM EST eCW1 ([facility]) Prednisone 10 MG Oral Tablet 06/16/2020 12:00:00 AM EST eCW1 ([facility]) tizanidine 2 MG Oral Tablet 06/16/2020 12:00:00 AM EST eCW1 ([facility]) Prednisone 10 MG Oral Tablet 06/16/2020 12:00:00 AM EST eCW1 ([facility]) Furosemide 20 MG Oral Tablet 04/21/2020 12:00:00 AM EDT [facility] Metoprolol Tartrate 25 MG Oral Tablet 04/12/2020 12:00:00 AM EDT [facility] rivaroxaban 20 MG Oral Tablet 12/15/2019 12:00:00 AM EDT [facility] Potassium Chloride 10 MEQ Extended Release Oral Tablet 12/15/2019 12:00:00 AM EDT [facility] Polyethylene Glycol 400 4 MG/ML / Propylene glycol 3 M G/ML Ophthalmic Solution 11/26/2016 12:00:00 AM EDT [facility] Ascorbic Acid 226 MG / Beta Carotene 143 20 UNT / cuprous oxide 0.8 MG / dl-alpha tocopheryl acetate 200 UNT / Zinc Oxide 34.8 MG Oral Capsule [PreserVision] 04/12/2015 12:00:00 AM EDT [facility] tizanidine 2 MG Oral Tablet [facility]
[2021-06-01 18:00] VITALS: BP 155/72
[2021-06-01 22:00] VITALS: BP 139/55
[2021-06-02 02:00] VITALS: BP 135/61
[2021-06-02] MEDS: LEVOTHYROXINE 12.5MCG PER 1/2 TAB (0.0125MG) PO SCH (05:55)
[2021-06-02 06:00] VITALS: BP 139/68
[2021-06-02 07:00] LABS: HEMATOCRIT 35.3 % (36.0-47.0); HEMOGLOBIN 11.3 g/dl (12.0-15.5); MEAN CORPUSCULAR HEMOGLOBIN 30.4 pg (27.0-33.0); MEAN CORPUSCULAR VOLUME 94.9 fl (80.0-96.0); PLATELET COUNT, AUTOMATED 142 10^3/uL (150-450); RED BLOOD COUNT 3.72 10^6/uL (4.00-5.40); WHITE BLOOD COUNT 8.1 10^3/uL (4.0-10.0)
[2021-06-02 07:35] LABS: BLOOD UREA NITROGEN 15 MG/DL (7-18); CALCIUM LEVEL 8.8 MG/DL (8.8-10.2); CARBON DIOXIDE LEVEL 31 MEQ/L (21-32); CHLORIDE LEVEL 108 MEQ/L (98-107); CREATININE FOR GFR 0.64 MG/DL (0.55-1.30); GLOMERULAR FILTRATION RATE > 60.0 (>32); GLUCOSE, FASTING 88 MG/DL (70-100); MAGNESIUM LEVEL 1.8 MG/DL (1.8-2.4); POTASSIUM SERUM 3.8 MEQ/L (3.5-5.1); SODIUM LEVEL 142 MEQ/L (136-145)
[2021-06-02 09:00] VITALS: BP 117/50
[2021-06-02] MEDS ORDERED: SENOKOT S TAB PO ONE (09:00)
[2021-06-02] MEDS: DIGOXIN 0.125 MG TAB PO SCH (09:00)
[2021-06-02] MEDS: FUROSEMIDE 20 MG TAB PO SCH (09:00)
[2021-06-02] MEDS ORDERED: MAGNESIUM OXIDE 400MG TAB (MAG-OX) PO ONE (09:00)
[2021-06-02] MEDS ORDERED: BISACODYL 10 MG SUPP PR ONE (09:00)
[2021-06-02] MEDS ORDERED: MAG SULF 1GM/100ML (MAG RUN) 1 GM in IV 1 EA IV ONE (09:00)
[2021-06-02] MEDS: METOPROLOL TART 50 MG TAB PO SCH (09:00)
[2021-06-02] MEDS: POTASSIUM CHLORIDE 10MEQ SR TABLET PO SCH (09:18)
[2021-06-02] MEDS: CALCIUM/VITAMIN D 500 MG TAB PO SCH (09:19)
[2021-06-02] MEDS: VITAMIN D 1,000 INTERNATIONAL UNITS TABLET PO SCH (09:20)
[2021-06-02] MEDS: CYANOCOBALAMIN 500 MCG TAB PO SCH (09:21)
[2021-06-02 10:00] VITALS: BP 137/50
--- NOTE | 2021-06-02 11:10 | DS.PDOC ---
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 Chronic atrial fibrillation History of asthma, DISCHARGE INSTRUCTIONS: ENT DR THORNE TO REMOVE DRAIN IN HIS OFFICE AT HOSPITAL DISCHARGE, PCP AND ENT 5DAYS NO ELIQUIS FOR ONE WEEK DUE TO RECENT THYROIDECTOMY DISCHARGE MEDS: SEE BELOW HOSPITAL COURSE: This is an 80-year-old female with congestive heart failure, diastolic dysfunction, atrial fibrillation and anticoagulation recently diagnosed with papillary thyroid carcinoma who underwent total thyroidectomy on 05/31/2021, allergic rhinitis, cervical spondylolysis, IBS, GERD, osteoarthritis, macular degeneration of the right eye, chronic myalgia, myositis, carpal tunnel syndrome, history of MRSA positive and right lower extremity DVT in 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 1. 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 Postop management per ENT. Patient's drain was not draining freely yesterday and had to be placed on wall suction. Telemetry shows no abnormalities. Patient had episodes of hypocalcemia which was treated with calcium gluconate, currently on calcium with vitamin D supplementation. Patient has also been started on Synthroid 12.5 mcg, will need to monitor patient's TSH levels. This may precipitate A-fib with RVR, therefore will need to monitor patient's pulse. She currently has controlled pain with tramadol, oxycodone and acetaminophen, as needed antiemetics. 2. Hypertensive urgency, resolved Patient did receive hydralazine and was resumed back on her home dose of Lisinopril and metoprolol, therefore holding parameters have been placed today. Her blood pressure is 122 systolic at the bedside. 3. Congestive heart failure, diastolic dysfunction, compensated. She is kept on 2 liter fluid restriction. Diuretics held initially due to low blood pressure and has not resumed full oral intake yet. This was resumed yesterday and diuretics resumed w/o orthostasis 4. Chronic atrial fibrillation, anticoagulation held for one week due to recent thyroidectomy. 5. History of asthma, compensated. 6. DVT prophylaxis with compression stockings. No anticoagulant due to recent thyroidectomy. DISCHARGE PE: VITAL SIGNS: SEE BELOW I/O : SEE BELOW GENERAL: Patient is awake, alert and oriented x3. She has a clean incision site across the throat and a drain placed with bloody drainage to suctioning. LUNGS: Clear to auscultation. No wheezes, rales or rhonchi. HEART: S1 and S2, sinus rhythm. S1 and S2, irregularly irregular with normal sinus rhythm. ABDOMEN: Soft, nontender and nondistended. Positive bowel sounds. EXTREMITIES: No cyanosis, clubbing or pitting edema. DISCHARGE LABORATORY DATA/IMAGING STUDY/MICROBIOLOGY: Reviewed. Please see the chart. TIME SPENT ON DISCHARGE: 30 MIN Vital Signs/I&Os Vital Signs Date Time Temp Pulse Resp B/P (MAP) Pulse Ox O2 Delivery O2 Flow Rate FiO2 06/02/21 10:00 98.1 60 18 137/50 (79) 92 Room Air 06/01/21 10:00 2.0 I&O- Last 24 Hours up to 6 AM 06/02/21 06:00 Intake Total 1200 ml Output Total 1040 ml Balance 160 ml Laboratory Data Labs 24H Laboratory Tests 2 06/01/21 14:25: Whole Blood Ionized Calcium 4.5 06/01/21 21:36: Whole Blood Ionized Calcium 4.4L 06/02/21 02:51: Whole Blood Ionized Calcium 4.3L 06/02/21 06:39: Whole Blood Ionized Calcium 4.5, Nucleated Red Blood Cells % (auto) 0.0, Anion Gap 3L, Glomerular Filtration Rate > 60.0, Calcium Level 8.8, Magnesium Level 1.8 CBC/BMP Laboratory Tests 06/02/21 06:39 Discharge Medications Scheduled Calcium/Vitamin D (Calcium 500-Vit D3 200 Tablet) 1 Each Tablet, 500 MG PO BID Cholecalciferol (Vitamin D3) (Vitamin D3) 1,000 Unit Tablet, 1,000 UNITS PO DAILY, (Reported) Cyanocobalamin (Vitamin B-12) (Vitamin B-12) 500 Mcg Tablet, 500 MCG PO DAILY, (Reported) Digoxin (Digoxin) 125 Mcg Tablet, 125 TAB PO DAILY Furosemide (Furosemide) 20 Mg Tablet, 20 MG PO DAILY, (Reported) Levothyroxine Sodium (Levothyroxine Sodium) 25 Mcg Tablet, 12.5 MCG PO DAILY@06 Lisinopril (Lisinopril) 10 Mg Tablet, 10 MG PO DAILY, (Reported) Metoprolol Tartrate (Metoprolol Tartrate) 50 Mg Tablet, 50 MG PO BID, (Reported) Omeprazole (Omeprazole) 40 Mg Capsule.dr, 40 MG PO DAILY, (Reported) Potassium Chloride (K-Tab ER) 10 Meq Tablet.er, 10 MEQ PO DAILY, (Reported) Scheduled PRN Acetaminophen (Tylenol Arthritis) 650 Mg Tablet.er, 1,300 MG PO DAILY PRN for PAIN, (Reported) Carboxymethylcellulos/Glycerin (Refresh Optive Eye Drops) 15 Ml Drops, 1 DROP OU DAILY PRN for DRY EYES, (Reported) Allergies Coded Allergies: ENVIRONMENTAL (Verified Allergy, Unknown, 04/06/21) meloxicam (Verified Allergy, Unknown, 05/08/21) tongue swelling? JÚNIOR MEAD MD Jun 02, 2021 11:10
--- NOTE | 2021-06-21 13:53 | RO ---
OPERATIVE NOTE DATE OF OPERATION: 05/31/2021 PREOPERATIVE DIAGNOSIS: Papillary thyroid carcinoma. POSTOPERATIVE DIAGNOSIS: Papillary thyroid carcinoma. PROCEDURE PERFORMED: Completion left thyroid lobectomy with intraoperative nerve monitoring. SURGEON: Dr. Leonel Nikc ASSISTANTS: Dr. Wei Greenwood and TANIYA Hobson ANESTHESIA: General without use of paralytic agent. CLINICAL PREAMBLE: This 80-year-old woman who underwent right thyroid lobectomy approximately a month ago, was found to have follicular variant of papillary thyroid carcinoma in the right thyroid lobectomy specimen. Management options including completion thyroidectomy had been discussed. The patient understood and consented to the procedure. OR NARRATION: The patient was identified in preholding and brought to the operating room in stable condition. In supine position on the operating table, the patient received general anesthesia followed by orotracheal intubation with nerve monitoring compatible endotracheal tube without incident. The patient was prepped and draped in the usual fashion for the procedure. The [place] electrode was attached to the forehead. The test electrodes and the ground electrodes were attached to the nerve monitoring system. Good electrical signals were ascertained upon tapping of the larynx. At this time, the patient was prepped and draped in the usual fashion for the procedure. A curvilinear incision was fashioned in the lower neck region. The skin incision was carried through the subcutaneous tissue and the platysma muscle. The left strap muscles were identified and carefully dissected and retracted laterally to allow visualization of the left thyroid lobe. Careful dissection was carried out to isolate and divide the superior vascular pedicle using the harmonic scalpel. Dissection was carried out inferiorly to isolate the inferior vascular pedicle. The parathyroid gland was identified and carefully preserved along with its vasculature. The left recurrent laryngeal nerve was identified and carefully dissected so that the entire left thyroid lobe could be carefully mobilized off from the anterior surface of the trachea as well as the Spring's ligament. The thyroid lobectomy was then completed. There was no suspicious lymph node enlargement noted in the central compartment. Thus, a decision was made to complete the surgical procedure at this time. Hemostasis was achieved by using bipolar electrocautery. Surgicel was placed over the length of recurrent laryngeal nerve. Taylor powder was applied to the lower neck wound area. A #10 LISSETTE flat drain was also inserted into the wound bed as well. The strap muscles were then reapproximated. The platysma was also reapproximated as well. Finally, skin closure was then achieved using 5-0 Monocryl. At the end of the procedure, the sponge and instrument counts were correct. No complications were encountered. Estimated blood loss was less than 20 mL. General anesthesia was reversed and the patient was extubated and brought to the recovery room in stable condition. Dr. Greenwood was present throughout the entire case to provide assistance in soft tissue handling and retraction so that the surgical procedure was safely performed. VISHAL
== END 2021-06-02 11:45 | disposition home health service (06) ==
LOC: M SDC 08:50 → M MSPAV 15:04
PROVIDERS: ADMIT General Practice; ATTEND Otolaryngology
DX: C73 Malignant neoplasm of thyroid gland (principal); I16.0 Hypertensive urgency; I50.30 Unspecified diastolic (congestive) heart failure; I10 Essential (primary) hypertension; I48.20 Chronic atrial fibrillation, unspecified; K21.9 Gastro-esophageal reflux disease without esophagitis; K58.8 Other irritable bowel syndrome; J45.909 Unspecified asthma, uncomplicated; Z79.899 Other long term (current) drug therapy; E83.51 Hypocalcemia
CPT/HCPCS: 36415; 60240; 80048; 82330; 83735; 83970; 84436; 84443; 84479; 85027; 88307; 96361; 96374; G0378; J0131; J0330; J0610; J0697; J1100; J2250; J2370; J2405; J3010

== ENCOUNTER → 2021-07-26 | Outpatient (REF) | payer MEDICARE ==
[~2021-07-26] MED LIST changes: +CALCD50TA PO; +LEVO25TA5 PO; -LR 1,000 ML IV ONE; -OMEP-221 PO; +OMEP40CA5 PO; -dexameTHASONE 4 MG/ML 1ML VIAL (J1100 PER 1MG) IV ONE
[2021-07-26 13:30] LABS: ALBUMIN 3.8 GM/DL (3.2-5.2); ALT/SGPT 37 U/L (12-78); BILIRUBIN,TOTAL 1.3 MG/DL (0.2-1.0); BLOOD UREA NITROGEN 15 MG/DL (7-18); CARBON DIOXIDE LEVEL 29 MEQ/L (21-32); CHLORIDE LEVEL 106 MEQ/L (98-107); CREATININE FOR GFR 0.92 MG/DL (0.55-1.30); FREE T4 0.24 NG/DL (0.76-1.46); GLOMERULAR FILTRATION RATE > 60.0 (>32); GLUCOSE, FASTING 90 MG/DL (70-100); PHOSPHORUS LEVEL 3.5 MG/DL (2.5-4.9); POTASSIUM SERUM 3.9 MEQ/L (3.5-5.1); PTH INTACT 73.6 PG/ML (18.5-88.0); SODIUM LEVEL 143 MEQ/L (136-145)
== END ==
LOC: M SFHCCLAY 09:17
PROVIDERS: ATTEND Family Medicine
DX: E89.0 Postprocedural hypothyroidism (principal); I48.92 Unspecified atrial flutter; R19.7 Diarrhea, unspecified; Z95.0 Presence of cardiac pacemaker
CPT/HCPCS: 80053; 83970; 84100; 84439; 84443; G0463

== ENCOUNTER → 2021-08-02 | Outpatient (REF) | payer MEDICARE | LOC: M SFHCCLAY 10:39 | PROVIDERS: ATTEND Family Medicine | DX: R19.7 Diarrhea, unspecified (principal) ==

== ENCOUNTER → 2021-08-02 | Outpatient (REF) | payer MEDICARE ==
[2021-08-04 08:11] LABS: THRYOGLOBULIN ANTIBODIES (ATA) < 1.0 IU/mL (0.0-0.9); THYROGLOBULIN QUANTITATIVE 11.1 ng/mL (1.5-38.5)
== END ==
LOC: M SHH 15:40
DX: C73 Malignant neoplasm of thyroid gland (principal); R19.7 Diarrhea, unspecified

== ENCOUNTER → 2021-08-04 | Outpatient (CLI) | payer MEDICARE ==
[~2021-08-04] MED LIST changes: +E-Z-GAS II EFFERVESCENT PACKET (SODIUM BICARB./CITRIC ACID/SIMETHICONE) As Ordered ONE; +E-Z-HD 98% w/w 340GM SUSP BTL As Ordered ONE; +E-Z-PAQUE 96% w/w SUSP 176GM BTL As Ordered ONE
== END ==
LOC: M RAD 09:25
PROVIDERS: ATTEND Family Medicine
DX: R13.19 Other dysphagia (principal)

== ENCOUNTER → 2021-09-06 | Outpatient (REF) | payer MEDICARE ==
[~2021-09-06] MED LIST changes: -E-Z-GAS II EFFERVESCENT PACKET (SODIUM BICARB./CITRIC ACID/SIMETHICONE) As Ordered ONE; -E-Z-HD 98% w/w 340GM SUSP BTL As Ordered ONE; -E-Z-PAQUE 96% w/w SUSP 176GM BTL As Ordered ONE
[2021-09-06 14:05] LABS: FREE T4 0.83 NG/DL (0.76-1.46); THYROID STIMULATING HORMONE 26.6 uIU/ML (0.358-3.740)
== END ==
LOC: M SHH 12:54 → M LAB REF 12:54
PROVIDERS: ATTEND Student in an Organized Health Care Education/Training Program
DX: C73 Malignant neoplasm of thyroid gland (principal)

== ENCOUNTER → 2021-10-24 | Outpatient (REF) | payer MEDICARE ==
[~2021-10-24] MED LIST changes: -D31000TA2 PO; +VITA100093 PO
[2021-10-24 18:28] LABS: BLOOD UREA NITROGEN 17 MG/DL (7-18); CALCIUM LEVEL 8.8 MG/DL (8.8-10.2); CARBON DIOXIDE LEVEL 29 MEQ/L (21-32); CHLORIDE LEVEL 111 MEQ/L (98-107); CREATININE FOR GFR 0.91 MG/DL (0.55-1.30); GLOMERULAR FILTRATION RATE > 60.0 (>32); GLUCOSE, FASTING 88 MG/DL (70-100); POTASSIUM SERUM 4.2 MEQ/L (3.5-5.1); SODIUM LEVEL 144 MEQ/L (136-145)
== END ==
LOC: M SFHCCLAY 10:23
PROVIDERS: ATTEND Family Medicine
DX: C73 Malignant neoplasm of thyroid gland (principal); E89.0 Postprocedural hypothyroidism

== ENCOUNTER → 2021-12-26 | Outpatient (REF) | payer MEDICARE ==
[2021-12-26 17:30] LABS: FREE T4 0.92 NG/DL (0.76-1.46); THYROID STIMULATING HORMONE 9.26 uIU/ML (0.358-3.740)
== END ==
LOC: M SFHCCLAY 12:34
PROVIDERS: ATTEND Family Medicine
DX: E89.0 Postprocedural hypothyroidism (principal)

== ENCOUNTER → 2022-02-06 | Outpatient (REF) | payer MEDICARE ==
[2022-02-06 17:54] LABS: FREE T4 1.01 NG/DL (0.76-1.46); THYROID STIMULATING HORMONE 2.44 uIU/ML (0.358-3.740)
== END ==
LOC: M SFHCCLAY 09:16
PROVIDERS: ATTEND Family Medicine
DX: I10 Essential (primary) hypertension (principal)

== ENCOUNTER → 2022-03-30 | Outpatient (CLI) | payer MEDICARE | LOC: M CLY 11:49 | PROVIDERS: ATTEND Family Medicine | DX: R07.81 Pleurodynia (principal); Z95.0 Presence of cardiac pacemaker ==

== ENCOUNTER → 2022-04-26 | Outpatient (CLI) | payer MEDICARE | LOC: M WHC 13:39 | PROVIDERS: ATTEND Family Medicine | DX: R92.8 Other abnormal and inconclusive findings on diagnostic imaging of breast (principal); N64.4 Mastodynia | CPT/HCPCS: 76642; 77066; G0279 ==

== ENCOUNTER → 2022-05-08 | Outpatient (CLI) | payer MEDICARE ==
[~2022-05-08] MED LIST changes: +**SFHN** LIDOCAINE 1% MDV 20ML VIAL ONE; +**SFHN** SODIUM BICARBONATE 8.4% 10MEQ 10ML VIAL ONE; +AMOX875T2 PO
[2022-05-08 10:11] VITALS: BP 158/90
== END ==
LOC: M WHCPRO 08:25
PROVIDERS: ATTEND Family Medicine
DX: R92.8 Other abnormal and inconclusive findings on diagnostic imaging of breast (principal); N63.21 Unspecified lump in the left breast, upper outer quadrant; N63.11 Unspecified lump in the right breast, upper outer quadrant

== ENCOUNTER → 2022-05-31 | Outpatient (CLI) | payer MEDICARE ==
[~2022-05-31] MED LIST changes: -**SFHN** LIDOCAINE 1% MDV 20ML VIAL ONE; -**SFHN** SODIUM BICARBONATE 8.4% 10MEQ 10ML VIAL ONE; +ALBU8.5H; +B-12100010 PO; +LEVO150C PO
[2022-05-31 15:36] VITALS: BP 162/78
== END ==
LOC: M WHCPRO 13:50
PROVIDERS: ATTEND Surgery
DX: C50.411 Malignant neoplasm of upper-outer quadrant of right female breast (principal); R59.1 Generalized enlarged lymph nodes
CPT/HCPCS: 10035; 38505; 88305; A4648

== ENCOUNTER → 2022-06-11 | Outpatient (CLI) | payer MEDICARE | LOC: M PLARAD 11:22 | PROVIDERS: ATTEND Surgery | DX: C50.411 Malignant neoplasm of upper-outer quadrant of right female breast (principal); C50.112 Malignant neoplasm of central portion of left female breast; R59.9 Enlarged lymph nodes, unspecified; J84.9 Interstitial pulmonary disease, unspecified; I51.7 Cardiomegaly; I31.39 Other pericardial effusion (noninflammatory); J91.8 Pleural effusion in other conditions classified elsewhere | CPT/HCPCS: 78815; A9552 ==

== ENCOUNTER → 2022-06-18 | Outpatient (REF) | payer MEDICARE ==
[2022-06-18 18:27] LABS: BASO # 0.1 10^3/uL (0.0-0.2); BASO % 3.1 % (0.0-1.0); EOS # 0.2 10^3/uL (0.0-0.5); EOS % 4.5 % (0.0-3.0); HEMATOCRIT 35.7 % (36.0-47.0); HEMOGLOBIN 10.9 g/dl (12.0-15.5); LYMPH # 1.6 10^3/uL (1.5-5.0); LYMPH % 35.9 % (24.0-44.0); MEAN CORPUSCULAR HEMOGLOBIN 30.5 pg (27.0-33.0); MEAN CORPUSCULAR HGB CONC 30.5 g/dl (32.0-36.5); MONO # 0.4 10^3/uL (0.0-0.8); MONO % 8.5 % (2.0-8.0); NEUTROPHILS # 2.1 10^3/uL (1.5-8.5); NEUTROPHILS % 47.8 % (36.0-66.0); PLATELET COUNT, AUTOMATED 214 10^3/uL (150-450); RED BLOOD COUNT 3.57 10^6/uL (4.00-5.40); WHITE BLOOD COUNT 4.5 10^3/uL (4.0-10.0)
[2022-06-18 18:39] LABS: INR 1.16
[2022-06-18 19:48] LABS: ALBUMIN 3.7 G/DL (3.2-5.2); ALKALINE PHOSPHATASE 84 U/L (46-116); ALT/SGPT 10 U/L (7.0-40); AST/SGOT 19 U/L (<34); BILIRUBIN,TOTAL 0.5 MG/DL (0.3-1.2); BLOOD UREA NITROGEN 18 MG/DL (9-23); CALCIUM LEVEL 8.9 MG/DL (8.3-10.6); CARBON DIOXIDE LEVEL 29 MMOL/L (20-31); CHLORIDE LEVEL 106 MMOL/L (98-107); CREATININE FOR GFR 0.84 MG/DL (0.55-1.30); GLOMERULAR FILTRATION RATE > 60.0 (>32); GLUCOSE, FASTING 92 MG/DL (74-106); POTASSIUM SERUM 3.9 MMOL/L (3.5-5.1); SODIUM LEVEL 143 MMOL/L (136-145); TOTAL PROTEIN 6.5 G/DL (5.7-8.2)
[2022-06-19 08:27] LABS: LDH LACTATE DEHYDROGENASE 228 U/L (120-246)
[2022-06-19 08:30] LABS: FREE T4 0.91 NG/DL (0.89-1.76); THYROID STIMULATING HORMONE 13.473 uIU/ML (0.55-4.78)
[2022-06-19 08:31] LABS: VITAMIN B12 LEVEL 397 PG/ML (211-911)
[2022-06-19 10:46] LABS: THYROID PEROXIDASE ANTIBODY < 28.0 U/ML (<60.0)
[2022-06-19 13:21] LABS: FOLATE 18.57 NG/ML (>5.4)
== END ==
LOC: M SFHCCLAY 09:59
PROVIDERS: ATTEND Family Medicine
DX: I48.0 Paroxysmal atrial fibrillation (principal); I10 Essential (primary) hypertension; C73 Malignant neoplasm of thyroid gland; C50.919 Malignant neoplasm of unspecified site of unspecified female breast; E04.2 Nontoxic multinodular goiter; D53.9 Nutritional anemia, unspecified

== ENCOUNTER → 2022-06-27 | Outpatient (CLI) | payer MEDICARE ==
[~2022-06-27] MED LIST changes: +LIDOCAINE 1% MDV 20ML VIAL As Ordered ONE; -POTA10CA32 PO; +POTA10CA33 PO; +SYNT175T2 PO
[2022-06-27 10:00] VITALS: BP 149/72
== END ==
LOC: M IRPRO 07:43
PROVIDERS: ATTEND Surgery
DX: C79.51 Secondary malignant neoplasm of bone (principal); C50.919 Malignant neoplasm of unspecified site of unspecified female breast

== ENCOUNTER → 2022-07-17 | Outpatient (CLI) | payer MEDICARE ==
[~2022-07-17] MED LIST changes: +ANAS1TAB2 PO; +METO1TAB87
[2022-07-17 10:30] VITALS: BP 182/85
== END ==
LOC: M IRPRO 10:00
PROVIDERS: ATTEND Physician Assistant Medical
DX: D37.030 Neoplasm of uncertain behavior of the parotid salivary glands (principal)

== ENCOUNTER → 2022-07-18 | Outpatient (CLI) | payer MEDICARE ==
[~2022-07-18] MED LIST changes: -LIDOCAINE 1% MDV 20ML VIAL As Ordered ONE
== END ==
LOC: M WHC 12:24
PROVIDERS: ATTEND Internal Medicine
DX: C50.919 Malignant neoplasm of unspecified site of unspecified female breast (principal); Z79.811 Long term (current) use of aromatase inhibitors; Z13.820 Encounter for screening for osteoporosis; M85.851 Other specified disorders of bone density and structure, right thigh; M85.852 Other specified disorders of bone density and structure, left thigh

== ENCOUNTER → 2022-07-25 | Outpatient (CLI) | payer MEDICARE ==
[~2022-07-25] VITALS: Ht 157.5 cm; Wt 90.4 kg
[~2022-07-25] MED LIST changes: +ACET-1349 PO; +VITA200016 PO
[2022-07-25 09:28] VITALS: BP 165/69
== END ==
LOC: M PAL 09:18
PROVIDERS: ATTEND Nurse Practitioner Adult Health
DX: C50.911 Malignant neoplasm of unspecified site of right female breast (principal); C50.912 Malignant neoplasm of unspecified site of left female breast; C77.3 Secondary and unspecified malignant neoplasm of axilla and upper limb lymph nodes; C79.51 Secondary malignant neoplasm of bone; Z51.5 Encounter for palliative care; I31.31 Malignant pericardial effusion in diseases classified elsewhere; I50.9 Heart failure, unspecified; H35.30 Unspecified macular degeneration; M19.90 Unspecified osteoarthritis, unspecified site; Z86.718 Personal history of other venous thrombosis and embolism; I48.0 Paroxysmal atrial fibrillation; Z95.0 Presence of cardiac pacemaker; Z90.710 Acquired absence of both cervix and uterus; Z88.8 Allergy status to other drugs, medicaments and biological substances; Z79.899 Other long term (current) drug therapy; Z79.51 Long term (current) use of inhaled steroids; Z79.890 Hormone replacement therapy

== ENCOUNTER → 2022-07-26 | Outpatient (CLI) | payer MEDICARE | LOC: M ONCR 13:44 | PROVIDERS: ATTEND Radiology Radiation Oncology | DX: C50.911 Malignant neoplasm of unspecified site of right female breast (principal); C50.912 Malignant neoplasm of unspecified site of left female breast; C79.51 Secondary malignant neoplasm of bone; I31.39 Other pericardial effusion (noninflammatory); I48.91 Unspecified atrial fibrillation; I51.7 Cardiomegaly; J30.89 Other allergic rhinitis; J84.9 Interstitial pulmonary disease, unspecified; J91.8 Pleural effusion in other conditions classified elsewhere; M19.90 Unspecified osteoarthritis, unspecified site; R59.9 Enlarged lymph nodes, unspecified; Z79.01 Long term (current) use of anticoagulants; Z79.811 Long term (current) use of aromatase inhibitors; Z79.899 Other long term (current) drug therapy; Z82.49 Family history of ischemic heart disease and other diseases of the circulatory system; Z86.79 Personal history of other diseases of the circulatory system; Z86.718 Personal history of other venous thrombosis and embolism; Z88.6 Allergy status to analgesic agent; Z95.0 Presence of cardiac pacemaker ==

== ENCOUNTER → 2022-09-12 | Outpatient (REF) | payer MEDICARE ==
[~2022-09-12] MED LIST changes: +ENAL1TAB48 PO; -ENAL5TA PO
[2022-09-12 17:37] LABS: FREE T4 1.09 NG/DL (0.89-1.76); THYROID STIMULATING HORMONE 6.425 uIU/ML (0.55-4.78)
[2022-09-14 12:08] LABS: THRYOGLOBULIN ANTIBODIES (ATA) < 1.0 IU/mL (0.0-0.9); THYROGLOBULIN QUANTITATIVE 3.2 ng/mL (1.5-38.5)
== END ==
LOC: M SFHCCLAY 13:23
PROVIDERS: ATTEND Family Medicine
DX: E89.0 Postprocedural hypothyroidism (principal)

== ENCOUNTER → 2022-10-04 | Outpatient (REF) | payer MEDICARE ==
[~2022-10-04] MED LIST changes: +LEVO200T4; +LISI2.5T9
[2022-10-04 09:11] LABS: BLOOD UREA NITROGEN 21 MG/DL (9-23); CALCIUM LEVEL 8.3 MG/DL (8.3-10.6); CARBON DIOXIDE LEVEL 29 MMOL/L (20-31); CHLORIDE LEVEL 109 MMOL/L (98-107); CREATININE FOR GFR 0.64 MG/DL (0.55-1.30); GLOMERULAR FILTRATION RATE > 60.0 (>32); GLUCOSE, FASTING 91 MG/DL (74-106); POTASSIUM SERUM 3.9 MMOL/L (3.5-5.1); SODIUM LEVEL 144 MMOL/L (136-145)
[2022-10-04 09:13] LABS: TOTAL 25(OH) VITAMIN D 30.4 NG/ML (20.0-100.0)
== END ==
LOC: M LAB REF 08:18
PROVIDERS: ATTEND Family Medicine
DX: I50.33 Acute on chronic diastolic (congestive) heart failure (principal); E83.51 Hypocalcemia

== ENCOUNTER → 2022-10-04 | Outpatient (CLI) | payer MEDICARE | LOC: M PAL 07:41 | PROVIDERS: ATTEND Nurse Practitioner Adult Health | DX: Z53.9 Procedure and treatment not carried out, unspecified reason (principal) ==

== ENCOUNTER → 2023-01-02 | Outpatient (REF) | payer MEDICARE ==
[~2023-01-02] MED LIST changes: +CIPR-249 PO; +DICL20GE TP; -K-TA10TA2 PO; +OYST500T11 PO; +POTA-165 PO; -POTA10CA33 PO; +POTA10CA60 PO
== END ==
LOC: M LAB REF 14:18
PROVIDERS: ATTEND Internal Medicine Hematology & Oncology
DX: C50.911 Malignant neoplasm of unspecified site of right female breast (principal); C50.912 Malignant neoplasm of unspecified site of left female breast

== ENCOUNTER → 2023-02-14 | Outpatient (REF) | payer MEDICARE ==
[2023-02-14 20:01] LABS: THYROID STIMULATING HORMONE 0.589 uIU/ML (0.55-4.78)
[2023-02-14 20:02] LABS: FREE T3 3.2 PG/ML (2.3-4.2)
[2023-02-16 01:46] LABS: THYROGLOBULIN ANTIBODY < 15.0 U/ML (<60.0)
== END ==
LOC: M SFHCCLAY 09:55
PROVIDERS: ATTEND Family Medicine
DX: C73 Malignant neoplasm of thyroid gland (principal)

== ENCOUNTER → 2023-03-12 | Outpatient (REF) | payer MEDICARE ==
[2023-03-12 18:49] LABS: THYROID STIMULATING HORMONE 0.153 uIU/ML (0.55-4.78)
[2023-03-12 18:50] LABS: FREE T3 3.4 PG/ML (2.3-4.2)
[2023-03-12 18:51] LABS: FREE T4 1.3 NG/DL (0.89-1.76)
== END ==
LOC: M SFHCCLAY 10:40
PROVIDERS: ATTEND Family Medicine
DX: I48.0 Paroxysmal atrial fibrillation (principal); C73 Malignant neoplasm of thyroid gland

== ENCOUNTER → 2023-03-13 | Outpatient (CLI) | payer MEDICARE | LOC: M RAD 08:16 | PROVIDERS: ATTEND Family Medicine | DX: R10.10 Upper abdominal pain, unspecified (principal) ==

== ENCOUNTER → 2023-04-29 | Outpatient (CLI) | payer MEDICARE ==
[~2023-04-29] MED LIST changes: +LETR2.5T2 PO
== END ==
LOC: M CLY 13:56
PROVIDERS: ATTEND Family Medicine
DX: M53.3 Sacrococcygeal disorders, not elsewhere classified (principal); M47.896 Other spondylosis, lumbar region

== ENCOUNTER → 2023-05-08 | Outpatient (CLI) | payer MEDICARE ==
[~2023-05-08] MED LIST changes: +GASTROGRAFIN SOLUTION 30ML As Ordered ONE; +ISOVUE-370 76% 100ML VIAL As Ordered ONE; +TIZA2TA
== END ==
LOC: M RAD 12:15
PROVIDERS: ATTEND Nurse Practitioner
DX: C50.919 Malignant neoplasm of unspecified site of unspecified female breast (principal)
CPT/HCPCS: 71260; 74177; Q9963; Q9967

== ENCOUNTER → 2023-05-13 | Outpatient (CLI) | payer MEDICARE ==
[~2023-05-13] MED LIST changes: -GASTROGRAFIN SOLUTION 30ML As Ordered ONE; -ISOVUE-370 76% 100ML VIAL As Ordered ONE
== END ==
LOC: M ONCR 14:24
PROVIDERS: ATTEND General Practice
DX: C79.51 Secondary malignant neoplasm of bone (principal); C50.912 Malignant neoplasm of unspecified site of left female breast; C50.911 Malignant neoplasm of unspecified site of right female breast; Z71.2 Person consulting for explanation of examination or test findings; Z79.811 Long term (current) use of aromatase inhibitors; Z79.01 Long term (current) use of anticoagulants; Z79.899 Other long term (current) drug therapy; Z88.6 Allergy status to analgesic agent

== ENCOUNTER 2023-05-30 13:25 | Outpatient (RCR) | payer MEDICARE | END 2023-06-13 | LOC: M ONCR 13:25 | PROVIDERS: ATTEND General Practice | DX: Z51.0 Encounter for antineoplastic radiation therapy (principal); C79.51 Secondary malignant neoplasm of bone ==

== ENCOUNTER 2023-07-13 12:16 | Emergency (ER) | payer MEDICARE ==
[~2023-07-13] VITALS: Ht 165.1 cm; Wt 89.7 kg
[~2023-07-13 12:16] MED LIST changes: +OPTI0.5D2 OU; -OPTI0.5D5 OU
[2023-07-13 14:22] LABS: BASO # 0.1 10^3/uL (0.0-0.2); EOS % 0.6 % (0.0-3.0); HEMATOCRIT 37.6 % (36.0-47.0); HEMOGLOBIN 12.5 g/dl (12.0-15.5); LYMPH # 0.6 10^3/uL (1.5-5.0); LYMPH % 12.8 % (24.0-44.0); MEAN CORPUSCULAR HEMOGLOBIN 31.5 pg (27.0-33.0); MEAN CORPUSCULAR HGB CONC 33.2 g/dl (32.0-36.5); MEAN CORPUSCULAR VOLUME 94.7 fl (80.0-96.0); MONO # 0.4 10^3/uL (0.0-0.8); MONO % 8.4 % (2.0-8.0); NEUTROPHILS # 3.9 10^3/uL (1.5-8.5); PLATELET COUNT, AUTOMATED 135 10^3/uL (150-450); RED BLOOD COUNT 3.97 10^6/uL (4.00-5.40)
[2023-07-13 14:37] LABS: LIPASE 31 U/L (12-53)
[2023-07-13 14:42] LABS: ALBUMIN 3.4 G/DL (3.2-5.2); ALKALINE PHOSPHATASE 49 U/L (46-116); ALT/SGPT 11 U/L (7.0-40); AST/SGOT 20 U/L (<34); BILIRUBIN,DIRECT 0.1 MG/DL (<0.4); BILIRUBIN,TOTAL 0.4 MG/DL (0.3-1.2); BLOOD UREA NITROGEN 12 MG/DL (9-23); CARBON DIOXIDE LEVEL 24 MMOL/L (20-31); CHLORIDE LEVEL 112 MMOL/L (98-107); CREATININE FOR GFR 0.56 MG/DL (0.55-1.30); GLOMERULAR FILTRATION RATE > 60.0 (>32); GLUCOSE, FASTING 93 MG/DL (74-106); MAGNESIUM LEVEL 1.8 MG/DL (1.8-2.4); POTASSIUM SERUM 3.6 MMOL/L (3.5-5.1); SODIUM LEVEL 144 MMOL/L (136-145); TOTAL PROTEIN 6.2 G/DL (5.7-8.2)
[2023-07-13] MEDS ORDERED: ISOVUE-370 76% 100ML VIAL As Ordered ONE (15:09)
[2023-07-13] MEDS ORDERED: LOPERAMIDE 2 MG CAPLET PO STA (16:57)
[2023-07-13] MEDS ORDERED: LOPE-39 PO (16:59)
[2023-07-13 17:39] VITALS: BP 153/72; TEMP 98.1; O2SAT 93
== END 2023-07-13 18:09 | disposition home or self-care (01) ==
LOC: M ED 12:16
DX: I71.10 Thoracic aortic aneurysm, ruptured, unspecified (principal); R19.7 Diarrhea, unspecified; I49.1 Atrial premature depolarization; I10 Essential (primary) hypertension; K21.9 Gastro-esophageal reflux disease without esophagitis; Z86.79 Personal history of other diseases of the circulatory system; Z86.718 Personal history of other venous thrombosis and embolism; Z88.6 Allergy status to analgesic agent; Z91.048 Other nonmedicinal substance allergy status; Z79.811 Long term (current) use of aromatase inhibitors; Z79.83 Long term (current) use of bisphosphonates; Z79.899 Other long term (current) drug therapy
CPT/HCPCS: 36415; 71045; 71260; 74177; 80048; 80076; 83605; 83690; 83735; 85025; 87040; 87486; 87507; 87581; 87633; 87798; 93005; 93041; 99285; Q9967

== ENCOUNTER → 2023-09-17 | Outpatient (CLI) | payer MEDICARE ==
[~2023-09-17] MED LIST changes: +LOPE-39 PO
== END ==
LOC: M ONCR 14:19
PROVIDERS: ATTEND General Practice
DX: C79.51 Secondary malignant neoplasm of bone (principal); C50.911 Malignant neoplasm of unspecified site of right female breast; C50.912 Malignant neoplasm of unspecified site of left female breast; J30.89 Other allergic rhinitis; Z71.2 Person consulting for explanation of examination or test findings; Z79.01 Long term (current) use of anticoagulants; Z79.811 Long term (current) use of aromatase inhibitors; Z79.899 Other long term (current) drug therapy; Z88.6 Allergy status to analgesic agent; Z92.3 Personal history of irradiation

== ENCOUNTER → 2023-09-19 | Outpatient (REF) | payer MEDICARE ==
[2023-09-19 18:38] LABS: BASO # 0.1 10^3/uL (0.0-0.2); BASO % 1.3 % (0.0-1.0); EOS # 0.1 10^3/uL (0.0-0.5); EOS % 1.1 % (0.0-3.0); HEMATOCRIT 36.8 % (36.0-47.0); HEMOGLOBIN 11.9 g/dl (12.0-15.5); LYMPH # 1.5 10^3/uL (1.5-5.0); LYMPH % 24.7 % (24.0-44.0); MEAN CORPUSCULAR HEMOGLOBIN 31.3 pg (27.0-33.0); MEAN CORPUSCULAR HGB CONC 32.3 g/dl (32.0-36.5); MEAN CORPUSCULAR VOLUME 96.8 fl (80.0-96.0); MONO # 0.5 10^3/uL (0.0-0.8); MONO % 8.6 % (2.0-8.0); NEUTROPHILS # 3.9 10^3/uL (1.5-8.5); PLATELET COUNT, AUTOMATED 175 10^3/uL (150-450); WHITE BLOOD COUNT 6.2 10^3/uL (4.0-10.0)
[2023-09-19 18:44] LABS: ALBUMIN 3.6 G/DL (3.2-5.2); ALKALINE PHOSPHATASE 54 U/L (46-116); ALT/SGPT 13 U/L (7.0-40); AST/SGOT 27 U/L (<34); BILIRUBIN,TOTAL 0.3 MG/DL (0.3-1.2); BLOOD UREA NITROGEN 17 MG/DL (9-23); CALCIUM LEVEL 8.4 MG/DL (8.3-10.6); CARBON DIOXIDE LEVEL 28 MMOL/L (20-31); CHLORIDE LEVEL 107 MMOL/L (98-107); CREATININE FOR GFR 0.71 MG/DL (0.55-1.30); GLOMERULAR FILTRATION RATE > 60.0 (>32); GLUCOSE, FASTING 110 MG/DL (74-106); POTASSIUM SERUM 3.8 MMOL/L (3.5-5.1); SODIUM LEVEL 142 MMOL/L (136-145); TOTAL PROTEIN 6.9 G/DL (5.7-8.2)
== END ==
LOC: M LABDRAWC 16:34
PROVIDERS: ATTEND Nurse Practitioner
DX: C50.919 Malignant neoplasm of unspecified site of unspecified female breast (principal)

== ENCOUNTER → 2023-10-24 | Outpatient (REF) | payer MEDICARE ==
[2023-10-24 18:14] LABS: ALBUMIN 3.4 G/DL (3.2-5.2); ALKALINE PHOSPHATASE 56 U/L (46-116); ALT/SGPT 12 U/L (7.0-40); AST/SGOT 45 U/L (<34); BILIRUBIN,TOTAL 0.4 MG/DL (0.3-1.2); BLOOD UREA NITROGEN 14 MG/DL (9-23); CARBON DIOXIDE LEVEL 32 MMOL/L (20-31); CHLORIDE LEVEL 107 MMOL/L (98-107); CREATININE FOR GFR 0.73 MG/DL (0.55-1.30); GLOMERULAR FILTRATION RATE > 60.0 (>32); GLUCOSE, FASTING 91 MG/DL (74-106); POTASSIUM SERUM 3.8 MMOL/L (3.5-5.1); SODIUM LEVEL 147 MMOL/L (136-145); TOTAL PROTEIN 6.7 G/DL (5.7-8.2)
[2023-10-24 18:27] LABS: BASO # 0.1 10^3/uL (0.0-0.2); BASO % 1.6 % (0.0-1.0); EOS # 0.1 10^3/uL (0.0-0.5); EOS % 1.8 % (0.0-3.0); HEMATOCRIT 36.4 % (36.0-47.0); HEMOGLOBIN 11.5 g/dl (12.0-15.5); LYMPH # 1.3 10^3/uL (1.5-5.0); LYMPH % 20.6 % (24.0-44.0); MEAN CORPUSCULAR HEMOGLOBIN 30.6 pg (27.0-33.0); MEAN CORPUSCULAR HGB CONC 31.6 g/dl (32.0-36.5); MEAN CORPUSCULAR VOLUME 96.8 fl (80.0-96.0); MONO # 0.5 10^3/uL (0.0-0.8); MONO % 7.9 % (2.0-8.0); NEUTROPHILS # 4.2 10^3/uL (1.5-8.5); NEUTROPHILS % 67.8 % (36.0-66.0); RED BLOOD COUNT 3.76 10^6/uL (4.00-5.40); WHITE BLOOD COUNT 6.2 10^3/uL (4.0-10.0)
== END ==
LOC: M LABDRAWC 17:22
PROVIDERS: ATTEND Nurse Practitioner
DX: C50.919 Malignant neoplasm of unspecified site of unspecified female breast (principal)

== ENCOUNTER 2023-11-11 16:13 | Observation (INO) | payer MEDICARE ==
[~2023-11-11] VITALS: Ht 170.2 cm; Wt 104.5 kg
[2023-11-11 17:39] LABS: BASO # 0.1 10^3/uL (0.0-0.2); BASO % 0.9 % (0.0-1.0); EOS % 0.5 % (0.0-3.0); HEMATOCRIT 31.9 % (36.0-47.0); HEMOGLOBIN 10.4 g/dl (12.0-15.5); LYMPH # 1.1 10^3/uL (1.5-5.0); LYMPH % 13.9 % (24.0-44.0); MEAN CORPUSCULAR HEMOGLOBIN 30.6 pg (27.0-33.0); MEAN CORPUSCULAR HGB CONC 32.6 g/dl (32.0-36.5); MEAN CORPUSCULAR VOLUME 93.8 fl (80.0-96.0); MONO # 0.6 10^3/uL (0.0-0.8); MONO % 7.1 % (2.0-8.0); NEUTROPHILS # 5.9 10^3/uL (1.5-8.5); NEUTROPHILS % 77.1 % (36.0-66.0); PLATELET COUNT, AUTOMATED 218 10^3/uL (150-450); WHITE BLOOD COUNT 7.7 10^3/uL (4.0-10.0)
[2023-11-11 17:55] LABS: INR 2.17; PARTIAL THROMBOPLASTIN TIME 35.3 SECONDS (24.8-34.2); PROTHROMBIN TIME 23.4 SECONDS (12.5-14.5)
[2023-11-11] MEDS: NS 500 ML IV ONE (18:00)
[2023-11-11 18:12] LABS: CK-MB VALUE MASS < 1.0 NG/ML (<3.6)
[2023-11-11 18:13] LABS: LIPASE 29 U/L (12-53)
[2023-11-11 18:14] LABS: CPK CREATINE PHOSPHOKINASE 68 U/L (34-145); MB/CK RELATIVE INDEX 1.47 (< OR =4)
[2023-11-11 18:15] LABS: ALBUMIN 2.7 G/DL (3.2-5.2); ALKALINE PHOSPHATASE 75 U/L (46-116); ALT/SGPT 10 U/L (7.0-40); AST/SGOT 90 U/L (<34); BILIRUBIN,DIRECT 0.2 MG/DL (<0.4); BILIRUBIN,TOTAL 0.4 MG/DL (0.3-1.2); BLOOD UREA NITROGEN 15 MG/DL (9-23); CALCIUM LEVEL 8.1 MG/DL (8.3-10.6); CARBON DIOXIDE LEVEL 29 MMOL/L (20-31); CHLORIDE LEVEL 105 MMOL/L (98-107); CREATININE FOR GFR 0.84 MG/DL (0.55-1.30); GLOMERULAR FILTRATION RATE > 60.0 (>32); GLUCOSE, FASTING 139 MG/DL (74-106); POTASSIUM SERUM 3.1 MMOL/L (3.5-5.1); SODIUM LEVEL 142 MMOL/L (136-145); TOTAL PROTEIN 6.3 G/DL (5.7-8.2)
[2023-11-11 18:16] LABS: FREE T4 1.11 NG/DL (0.89-1.76)
[2023-11-11 18:17] LABS: THYROID STIMULATING HORMONE 0.782 uIU/ML (0.55-4.78)
[2023-11-11] MEDS ORDERED: ISOVUE-370 76% 100ML VIAL As Ordered ONE (18:47)
[2023-11-11] MEDS: POTASSIUM CHLORIDE 10MEQ SR TABLET PO ONE (19:05)
[2023-11-11 19:24] LABS: CK-MB VALUE MASS < 1.0 NG/ML (<3.6)
[2023-11-11 19:25] LABS: CPK CREATINE PHOSPHOKINASE 67 U/L (34-145); MB/CK RELATIVE INDEX 1.49 (< OR =4)
[2023-11-11 20:58] LABS: CK-MB VALUE MASS < 1.0 NG/ML (<3.6)
[2023-11-11 21:02] LABS: CPK CREATINE PHOSPHOKINASE 74 U/L (34-145); MB/CK RELATIVE INDEX 1.35 (< OR =4)
[2023-11-11 21:10] VITALS: O2SAT 98
[2023-11-11] MEDS ORDERED: LEVO2TA PO (22:26)
[2023-11-11] MEDS ORDERED: ARTIDRO4 OU (22:26)
[2023-11-11] MEDS ORDERED: B-12100020 PO (22:26)
[2023-11-11] MEDS ORDERED: ACET-897 PO (22:26)
[2023-11-11] MEDS ORDERED: HOME MED LIST COMPLETE! XX SCH (22:30)
[2023-11-11] MEDS ORDERED: PERCOCET 5MG/325MG TAB PO PRN (23:05)
[2023-11-11] MEDS ORDERED: ACETAMINOPHEN TAB 650MG DOSE (2X325MG) PO PRN (23:05)
[2023-11-11] MEDS ORDERED: ONDANSETRON 4MG 2ML VIAL IV PRN (23:05)
[2023-11-11] MEDS: NS 1,000 ML IV SCH (23:06)
[2023-11-12] MEDS: METOPROLOL TART 12.5 MG PER 1/2 TAB PO SCH (01:34)
[2023-11-12] MEDS: KCL 20MEQ IN D5/0.45NS 1000ML 1,000 ML IV SCH (01:35)
[2023-11-12] MEDS: LEVOTHYROXINE 100MCG TABLET (0.1MG) PO SCH (06:17)
[2023-11-12 06:31] LABS: HEMATOCRIT 29.8 % (36.0-47.0); HEMOGLOBIN 9.9 g/dl (12.0-15.5)
[2023-11-12 07:01] LABS: BLOOD UREA NITROGEN 11 MG/DL (9-23); CALCIUM LEVEL 7.8 MG/DL (8.3-10.6); CARBON DIOXIDE LEVEL 26 MMOL/L (20-31); CHLORIDE LEVEL 106 MMOL/L (98-107); CREATININE FOR GFR 0.72 MG/DL (0.55-1.30); GLOMERULAR FILTRATION RATE > 60.0 (>32); GLUCOSE, FASTING 107 MG/DL (74-106); POTASSIUM SERUM 3.5 MMOL/L (3.5-5.1); SODIUM LEVEL 141 MMOL/L (136-145)
[2023-11-12 08:51] VITALS: TEMP 98.6; O2SAT 96
[2023-11-12 09:00] VITALS: BP 95/77
[2023-11-12] MEDS: OMEPRAZOLE 20MG CAP PO SCH (09:05)
[2023-11-12] MEDS: LETROZOLE 2.5 MG TAB PO SCH (09:05)
[2023-11-12] MEDS: POTASSIUM CHLORIDE 10MEQ SR TABLET PO ONE (10:37)
[2023-11-12] MEDS ORDERED: METO1TAB87 PO (12:04)
[2023-11-12 12:18] VITALS: BP 157/73
[2023-11-12] MEDS ORDERED: MAGNESIUM OXIDE 400MG TAB (MAG-OX) PO ONE (12:30)
[2023-11-12 12:31] LABS: MAGNESIUM LEVEL 1.7 MG/DL (1.8-2.4)
[2023-11-12] MEDS ORDERED: RIVAROXABAN 20MG TAB (XARELTO) PO SCH (18:00)
== END 2023-11-12 13:30 | disposition home health service (06) ==
LOC: M ED 16:13 → M ED INP 16:14
PROVIDERS: ADMIT Internal Medicine; ATTEND Internal Medicine
DX: R55 Syncope and collapse (principal); I95.1 Orthostatic hypotension; R00.0 Tachycardia, unspecified; R63.1 Polydipsia; E87.6 Hypokalemia; R10.13 Epigastric pain; I48.91 Unspecified atrial fibrillation; E03.9 Hypothyroidism, unspecified; K21.9 Gastro-esophageal reflux disease without esophagitis; I10 Essential (primary) hypertension; Z79.01 Long term (current) use of anticoagulants; Z95.0 Presence of cardiac pacemaker; C50.919 Malignant neoplasm of unspecified site of unspecified female breast; C73 Malignant neoplasm of thyroid gland; Z79.899 Other long term (current) drug therapy; J30.2 Other seasonal allergic rhinitis; Z88.8 Allergy status to other drugs, medicaments and biological substances
CPT/HCPCS: 36415; 70450; 71045; 74177; 80048; 80076; 82550; 82553; 83690; 83735; 83880; 84439; 84443; 84484; 85014; 85018; 85025; 85610; 85730; 93005; 93041; 93306; 94760; 96361; 96374; 96375; 97161; 97530; 99285; G0378; Q9967

== ENCOUNTER → 2023-11-14 | Outpatient (REF) | payer MEDICARE ==
[~2023-11-14] MED LIST changes: +ACET-897 PO; +ARTIDRO4 OU; +B-12100020 PO; +LEVO2TA PO; -POTA10CA60 PO; +POTA10CA70 PO
[2023-11-14 18:04] LABS: BASO # 0.1 10^3/uL (0.0-0.2); BASO % 1.5 % (0.0-1.0); EOS # 0.1 10^3/uL (0.0-0.5); EOS % 0.9 % (0.0-3.0); HEMATOCRIT 32.7 % (36.0-47.0); HEMOGLOBIN 10.4 g/dl (12.0-15.5); LYMPH % 14.9 % (24.0-44.0); MEAN CORPUSCULAR HEMOGLOBIN 30.4 pg (27.0-33.0); MEAN CORPUSCULAR HGB CONC 31.8 g/dl (32.0-36.5); MEAN CORPUSCULAR VOLUME 95.6 fl (80.0-96.0); MONO # 0.5 10^3/uL (0.0-0.8); MONO % 7.6 % (2.0-8.0); NEUTROPHILS % 74.2 % (36.0-66.0); RED BLOOD COUNT 3.42 10^6/uL (4.00-5.40); WHITE BLOOD COUNT 6.7 10^3/uL (4.0-10.0)
[2023-11-14 18:43] LABS: ALBUMIN 2.7 G/DL (3.2-5.2); ALKALINE PHOSPHATASE 88 U/L (46-116); ALT/SGPT 14 U/L (7.0-40); AST/SGOT 97 U/L (<34); BILIRUBIN,TOTAL 0.4 MG/DL (0.3-1.2); BLOOD UREA NITROGEN 13 MG/DL (9-23); CALCIUM LEVEL 8.3 MG/DL (8.3-10.6); CARBON DIOXIDE LEVEL 26 MMOL/L (20-31); CHLORIDE LEVEL 107 MMOL/L (98-107); CREATININE FOR GFR 0.74 MG/DL (0.55-1.30); GLOMERULAR FILTRATION RATE > 60.0 (>32); GLUCOSE, FASTING 98 MG/DL (74-106); POTASSIUM SERUM 4.1 MMOL/L (3.5-5.1); SODIUM LEVEL 144 MMOL/L (136-145); TOTAL PROTEIN 6.7 G/DL (5.7-8.2)
[2023-11-14 19:15] LABS: PLATELET COUNT, AUTOMATED 265 10^3/uL (150-450)
== END ==
LOC: M LABDRAWC 16:43
PROVIDERS: ATTEND Internal Medicine Hematology & Oncology
DX: C50.911 Malignant neoplasm of unspecified site of right female breast (principal); C50.912 Malignant neoplasm of unspecified site of left female breast; C79.51 Secondary malignant neoplasm of bone; C77.3 Secondary and unspecified malignant neoplasm of axilla and upper limb lymph nodes

== ENCOUNTER → 2023-11-15 | Outpatient (CLI) | payer MEDICARE | LOC: M EKG 14:17 | PROVIDERS: ATTEND Internal Medicine | DX: R42 Dizziness and giddiness (principal) ==

== ENCOUNTER 2023-11-19 13:59 | Emergency (ER) | payer MEDICARE ==
[~2023-11-19] VITALS: Ht 165.1 cm; Wt 81.4 kg
[2023-11-19 14:27] LABS: VENOUS BASE EXCESS -0.7 (-2.0-2.0); VENOUS HCO3 23.1 MMOL/L (23.0-27.0); VENOUS O2 SATURATION 71.4 % (60.0-80.0); VENOUS PARTIAL PRESSURE O2 37.3 mmHg (30.0-50.0); VENOUS PH 7.437 UNITS (7.330-7.430); VENOUS STANDARD HCO3 23.4 MMOL/L; VENOUS TOTAL CO2 24.2 MMOL/L (24.0-28.0)
[2023-11-19 14:41] LABS: BASO # 0.1 10^3/uL (0.0-0.2); BASO % 0.9 % (0.0-1.0); EOS % 0.4 % (0.0-3.0); HEMATOCRIT 31.6 % (36.0-47.0); HEMOGLOBIN 10.3 g/dl (12.0-15.5); LYMPH # 1.3 10^3/uL (1.5-5.0); LYMPH % 15.8 % (24.0-44.0); MEAN CORPUSCULAR HEMOGLOBIN 29.8 pg (27.0-33.0); MEAN CORPUSCULAR HGB CONC 32.6 g/dl (32.0-36.5); MEAN CORPUSCULAR VOLUME 91.3 fl (80.0-96.0); MONO # 0.6 10^3/uL (0.0-0.8); MONO % 7.8 % (2.0-8.0); NEUTROPHILS # 6.1 10^3/uL (1.5-8.5); NEUTROPHILS % 74.1 % (36.0-66.0); PLATELET COUNT, AUTOMATED 286 10^3/uL (150-450); RED BLOOD COUNT 3.46 10^6/uL (4.00-5.40); WHITE BLOOD COUNT 8.2 10^3/uL (4.0-10.0)
[2023-11-19 15:03] LABS: D-DIMER QUANT 7.02 ug/mL (<0.5); INR 3.3; PROTHROMBIN TIME 32.3 SECONDS (12.5-14.5)
[2023-11-19 15:07] LABS: CPK CREATINE PHOSPHOKINASE 59 U/L (34-145)
[2023-11-19 15:08] LABS: ALBUMIN 2.8 G/DL (3.2-5.2); ALKALINE PHOSPHATASE 113 U/L (46-116); ALT/SGPT 25 U/L (7.0-40); AST/SGOT 90 U/L (<34); BILIRUBIN,DIRECT 0.2 MG/DL (<0.4); BILIRUBIN,TOTAL 0.5 MG/DL (0.3-1.2); BLOOD UREA NITROGEN 19 MG/DL (9-23); CALCIUM LEVEL 8.4 MG/DL (8.3-10.6); CARBON DIOXIDE LEVEL 24 MMOL/L (20-31); CHLORIDE LEVEL 101 MMOL/L (98-107); CK-MB VALUE MASS < 1.0 NG/ML (<3.6); CREATININE FOR GFR 0.83 MG/DL (0.55-1.30); GLOMERULAR FILTRATION RATE > 60.0 (>32); GLUCOSE, FASTING 101 MG/DL (74-106); MB/CK RELATIVE INDEX 1.69 (< OR =4); POTASSIUM SERUM 3.5 MMOL/L (3.5-5.1); SODIUM LEVEL 137 MMOL/L (136-145); TOTAL PROTEIN 6.8 G/DL (5.7-8.2)
[2023-11-19] MEDS ORDERED: ISOVUE-370 76% 100ML VIAL As Ordered ONE (15:26)
[2023-11-19] MEDS: POTASSIUM CHLORIDE 10MEQ SR TABLET PO ONE (15:26)
[2023-11-19 16:21] VITALS: O2SAT 96
[2023-11-19 17:00] VITALS: BP 162/71; O2SAT 96
[2023-11-19 17:22] VITALS: TEMP 98.2
== END 2023-11-19 17:23 | disposition home or self-care (01) ==
LOC: M ED 13:59
DX: R06.00 Dyspnea, unspecified (principal); E87.6 Hypokalemia; I49.1 Atrial premature depolarization; J45.909 Unspecified asthma, uncomplicated; K21.9 Gastro-esophageal reflux disease without esophagitis; F41.9 Anxiety disorder, unspecified; C50.919 Malignant neoplasm of unspecified site of unspecified female breast; Z86.718 Personal history of other venous thrombosis and embolism; Z86.79 Personal history of other diseases of the circulatory system; Z91.048 Other nonmedicinal substance allergy status; Z88.6 Allergy status to analgesic agent; Z79.899 Other long term (current) drug therapy; Z79.01 Long term (current) use of anticoagulants; Z79.1 Long term (current) use of non-steroidal anti-inflammatories (NSAID)
CPT/HCPCS: 36415; 71045; 71275; 80047; 80048; 80076; 82550; 82553; 82803; 83605; 83880; 84484; 85025; 85379; 85610; 87040; 87486; 87581; 87633; 87798; 93005; 93041; 94760; 99285; Q9967

== ENCOUNTER → 2023-12-02 | Outpatient (CLI) | payer MEDICARE ==
[~2023-12-02] MED LIST changes: +VERZ150T PO
== END ==
LOC: M PLARAD 14:13
PROVIDERS: ATTEND Nurse Practitioner
DX: C79.81 Secondary malignant neoplasm of breast (principal)
CPT/HCPCS: 78815; A9552

== ENCOUNTER 2023-12-16 12:30 | Inpatient (IN) | payer MEDICARE ==
[~2023-12-16] VITALS: Ht 165.1 cm; Wt 84.4 kg
[2023-12-16] MEDS ORDERED: MIDO5TA PO (13:17)
[2023-12-16 14:03] LABS: VENOUS BASE EXCESS -2.9 (-2.0-2.0); VENOUS HCO3 22.2 MMOL/L (23.0-27.0); VENOUS O2 SATURATION 89.1 % (60.0-80.0); VENOUS PARTIAL PRESSURE CO2 40.1 mmHg (38.0-50.0); VENOUS PARTIAL PRESSURE O2 57.7 mmHg (30.0-50.0); VENOUS PH 7.362 UNITS (7.330-7.430); VENOUS STANDARD HCO3 21.9 MMOL/L; VENOUS TOTAL CO2 23.5 MMOL/L (24.0-28.0)
[2023-12-16 14:08] LABS: BASO # 0.1 10^3/uL (0.0-0.2); BASO % 0.9 % (0.0-1.0); EOS % 0.3 % (0.0-3.0); HEMATOCRIT 29.8 % (36.0-47.0); HEMOGLOBIN 9.4 g/dl (12.0-15.5); LYMPH # 0.7 10^3/uL (1.5-5.0); LYMPH % 10.6 % (24.0-44.0); MEAN CORPUSCULAR HEMOGLOBIN 29.6 pg (27.0-33.0); MEAN CORPUSCULAR HGB CONC 31.5 g/dl (32.0-36.5); MEAN CORPUSCULAR VOLUME 93.7 fl (80.0-96.0); MONO # 0.6 10^3/uL (0.0-0.8); MONO % 9.2 % (2.0-8.0); NEUTROPHILS # 5.4 10^3/uL (1.5-8.5); NEUTROPHILS % 77.7 % (36.0-66.0); PLATELET COUNT, AUTOMATED 133 10^3/uL (150-450); RED BLOOD COUNT 3.18 10^6/uL (4.00-5.40)
[2023-12-16 14:31] LABS: OSMOLALITY SERUM 290 MOSM/KG (280-301)
[2023-12-16 14:55] LABS: ALBUMIN 2.9 G/DL (3.2-5.2); ALKALINE PHOSPHATASE 120 U/L (46-116); ALT/SGPT 15 U/L (7.0-40); AST/SGOT 140 U/L (<34); BILIRUBIN,DIRECT 0.3 MG/DL (<0.4); BILIRUBIN,TOTAL 0.7 MG/DL (0.3-1.2); BLOOD UREA NITROGEN 14 MG/DL (9-23); CALCIUM LEVEL 7.9 MG/DL (8.3-10.6); CARBON DIOXIDE LEVEL 24 MMOL/L (20-31); CHLORIDE LEVEL 109 MMOL/L (98-107); CK-MB VALUE MASS 1.2 NG/ML (<3.6); CPK CREATINE PHOSPHOKINASE 51 U/L (34-145); CREATININE FOR GFR 0.71 MG/DL (0.55-1.30); ETHYL ALCOHOL (ETHANOL) < 0.003 % (0.000-0.010); GLOMERULAR FILTRATION RATE > 60.0 (>32); GLUCOSE, FASTING 134 MG/DL (74-106); MB/CK RELATIVE INDEX 2.35 (< OR =4); POTASSIUM SERUM 3.6 MMOL/L (3.5-5.1); SALICYLATE LEVEL < 3.0 MG/DL (<30); SODIUM LEVEL 141 MMOL/L (136-145); THYROID STIMULATING HORMONE 0.327 uIU/ML (0.55-4.78); TOTAL PROTEIN 6.3 G/DL (5.7-8.2)
[2023-12-16 15:47] LABS: CK-MB VALUE MASS 2.4 NG/ML (<3.6)
[2023-12-16 15:59] LABS: MB/CK RELATIVE INDEX 4.36 (< OR =4)
[2023-12-16] MEDS ORDERED: ISOVUE-370 76% 100ML VIAL As Ordered ONE (16:44)
[2023-12-16 16:56] LABS: MAGNESIUM LEVEL 1.9 MG/DL (1.8-2.4)
[2023-12-16] MEDS: NS 500 ML IV ONE (17:47)
[2023-12-16] MEDS: ACETAMINOPHEN TAB 650MG DOSE (2X325MG) PO PRN (21:11)
[2023-12-16] MEDS: NS 1,000 ML IV ONE (21:11)
[2023-12-16] MEDS: DOCUSATE SODIUM 100MG CAPSULE PO SCH (21:11)
[2023-12-16] MEDS ORDERED: ACET650T3 PO (21:32)
[2023-12-16] MEDS ORDERED: HOME MED LIST COMPLETE! XX SCH (21:35)
[2023-12-16 22:30] VITALS: BP 161/77; TEMP 98.3; O2SAT 89
[2023-12-16 22:35] VITALS: BP_SYST 146; BP_SYST 175; BP_DIAS 67; BP_DIAS 74; BP_DIAS 82
[2023-12-16 22:40] VITALS: BP 146/67
[2023-12-16] MEDS: KCL 10MEQ/100ML SWI (KRUN) 10 MEQ in IV 1 EA IV SCH (23:11)
[2023-12-16 23:26] VITALS: BP 173/77; O2SAT 95
[2023-12-16] MEDS: MAG SULF 1GM/100ML (MAG RUN) 1 GM in IV 1 EA IV ONE (23:29)
[2023-12-17] VITALS (10 sets, daily range): BP systolic 131–225; BP diastolic 60–92; TEMP 96.2–99.9; O2SAT 94–99
[2023-12-17] MEDS: METOPROLOL TART 12.5 MG PER 1/2 TAB PO ONE (00:42)
[2023-12-17] MEDS: LEVOTHYROXINE 100MCG TABLET (0.1MG) PO SCH (05:26)
[2023-12-17 06:02] LABS: HEMATOCRIT 31.1 % (36.0-47.0); HEMOGLOBIN 9.8 g/dl (12.0-15.5); MEAN CORPUSCULAR HEMOGLOBIN 29.4 pg (27.0-33.0); MEAN CORPUSCULAR HGB CONC 31.5 g/dl (32.0-36.5); MEAN CORPUSCULAR VOLUME 93.4 fl (80.0-96.0); PLATELET COUNT, AUTOMATED 138 10^3/uL (150-450); RED BLOOD COUNT 3.33 10^6/uL (4.00-5.40); WHITE BLOOD COUNT 6.2 10^3/uL (4.0-10.0)
[2023-12-17 06:47] LABS: ALBUMIN 2.7 G/DL (3.2-5.2); ALKALINE PHOSPHATASE 124 U/L (46-116); ALT/SGPT 14 U/L (7.0-40); AST/SGOT 144 U/L (<34); BILIRUBIN,TOTAL 0.7 MG/DL (0.3-1.2); BLOOD UREA NITROGEN 10 MG/DL (9-23); CARBON DIOXIDE LEVEL 23 MMOL/L (20-31); CHLORIDE LEVEL 110 MMOL/L (98-107); CREATININE FOR GFR 0.63 MG/DL (0.55-1.30); GLOMERULAR FILTRATION RATE > 60.0 (>32); GLUCOSE, FASTING 109 MG/DL (74-106); POTASSIUM SERUM 3.8 MMOL/L (3.5-5.1); SODIUM LEVEL 143 MMOL/L (136-145); TOTAL PROTEIN 6.1 G/DL (5.7-8.2)
[2023-12-17] MEDS ORDERED: MIDODRINE 5 MG TAB PO SCH ×2 (08:00)
[2023-12-17] MEDS: RIVAROXABAN 20MG TAB (XARELTO) PO SCH (08:21)
[2023-12-17] MEDS: NORCO, ANEXSIA 5/325MG TABLET (HYDROcodone/ACETAMINOPHEN) PO PRN (08:22)
[2023-12-17] MEDS: traMADol 50 MG TAB PO ONE (09:29)
[2023-12-17] MEDS: LIDOCAINE 5% (LIDODERM) PATCH TD SCH (09:31)
[2023-12-17] MEDS: METOPROLOL TART 25 MG TABLET PO SCH (15:44)
[2023-12-17] MEDS: traMADol 50 MG TAB PO PRN (20:58)
[2023-12-18] VITALS (10 sets, daily range): BP systolic 121–150; BP diastolic 58–68; TEMP 97.2–98.6; O2SAT 84–96
[2023-12-19 03:48] VITALS: BP 127/60; TEMP 98.1; O2SAT 92
[2023-12-19 07:23] VITALS: BP 123/57; TEMP 98.2; O2SAT 94
[2023-12-19 12:00] VITALS: BP 146/63; TEMP 98.1; O2SAT 94
[2023-12-19] MEDS: BISACODYL 5MG TAB PO ONE (17:09)
[2023-12-19] MEDS: MIRALAX *UNIT DOSE* 17GM PACKET PO ONE (17:09)
[2023-12-19] MEDS: MOM 30ML SUSPENSION UDC PO ONE (17:16)
[2023-12-19] MEDS: SENOKOT S TAB PO ONE (17:16)
[2023-12-19 18:56] VITALS: BP 153/69; TEMP 98.2; O2SAT 91
[2023-12-19 21:13] VITALS: TEMP 102.9
[2023-12-19 22:22] VITALS: TEMP 100.9
[2023-12-20 03:57] VITALS: BP 124/60; TEMP 99.8; O2SAT 94
[2023-12-20] MEDS: dexAMETHasone 2 MG TAB PO SCH (06:02)
[2023-12-20 08:23] VITALS: BP 131/60; TEMP 98.9; O2SAT 97
[2023-12-20] MEDS: SENOKOT S TAB PO SCH (08:34)
[2023-12-20 08:58] VITALS: BP 133/79; TEMP 97.3; O2SAT 92
[2023-12-20 17:23] VITALS: BP 134/77; TEMP 97.3; O2SAT 94
[2023-12-20] MEDS: METOPROLOL SUCC *XL* 25MG TAB (TopROL *XL*) PO SCH (18:28)
[2023-12-20 20:00] VITALS: BP 134/77; TEMP 97.3; O2SAT 96
[2023-12-21 04:00] VITALS: BP 153/69; TEMP 97.2; O2SAT 96
[2023-12-21] MEDS: dexAMETHasone 4 MG TAB PO SCH (05:59)
[2023-12-21 08:00] VITALS: BP 149/94; TEMP 97; O2SAT 99
[2023-12-21] MEDS: MOM 30ML SUSPENSION UDC PO PRN (11:12)
[2023-12-21] MEDS: METOPROLOL TART 25 MG TABLET PO SCH (12:45)
[2023-12-21 16:00] VITALS: BP 153/72; TEMP 97.7; O2SAT 93
[2023-12-21 20:00] VITALS: BP 150/72; TEMP 97.3; O2SAT 96
[2023-12-22 04:00] VITALS: BP 150/78; TEMP 97.5; O2SAT 93
[2023-12-22] MEDS: BISACODYL 10MG SUPP PR PRN (04:23)
[2023-12-22 11:29] LABS: HEMATOCRIT 34.8 % (36.0-47.0); MEAN CORPUSCULAR HEMOGLOBIN 28.5 pg (27.0-33.0); MEAN CORPUSCULAR HGB CONC 31.6 g/dl (32.0-36.5); MEAN CORPUSCULAR VOLUME 90.2 fl (80.0-96.0); PLATELET COUNT, AUTOMATED 217 10^3/uL (150-450); RED BLOOD COUNT 3.86 10^6/uL (4.00-5.40); WHITE BLOOD COUNT 14.8 10^3/uL (4.0-10.0)
[2023-12-22 11:55] LABS: ALBUMIN 2.4 G/DL (3.2-5.2); ALKALINE PHOSPHATASE 275 U/L (46-116); ALT/SGPT 34 U/L (7.0-40); AST/SGOT 355 U/L (<34); BILIRUBIN,TOTAL 0.5 MG/DL (0.3-1.2); BLOOD UREA NITROGEN 36 MG/DL (9-23); CALCIUM LEVEL 8.1 MG/DL (8.3-10.6); CARBON DIOXIDE LEVEL 27 MMOL/L (20-31); CHLORIDE LEVEL 103 MMOL/L (98-107); CREATININE FOR GFR 0.73 MG/DL (0.55-1.30); GLOMERULAR FILTRATION RATE > 60.0 (>32); GLUCOSE, FASTING 155 MG/DL (74-106); POTASSIUM SERUM 4.2 MMOL/L (3.5-5.1); SODIUM LEVEL 138 MMOL/L (136-145); TOTAL PROTEIN 6.4 G/DL (5.7-8.2)
[2023-12-22 12:00] VITALS: BP 129/88; TEMP 97.2; O2SAT 92
[2023-12-22 18:04] LABS: APPEARANCE, URINE HAZY (CLEAR); BACTERIA, URINE AUTO NEGATIVE (NEGATIVE); BILIRUBIN, URINE AUTO NEGATIVE (NEGATIVE); BLOOD, URINE BLOOD 3+ (NEGATIVE); COLOR, URINE AMBER (YELLOW); GLUCOSE, URINE (UA) AUTO NEGATIVE (NEGATIVE); KETONE, URINE AUTO NEGATIVE (NEGATIVE); LEUKOCYTE ESTERASE, URINE AUTO TRACE (NEGATIVE); MUCUS, URINE SMALL (NEGATIVE); NITRITE, URINE AUTO NEGATIVE (NEGATIVE); PROTEIN, URINE AUTO 2+ mg/dL (NEGATIVE); RBC, URINE AUTO TNTC /HPF (0-3); SQUAMOUS EPITHELIAL CELL UR AU 0 /HPF (0-6); UROBILINOGEN, URINE AUTO 0.2 mg/dL (0.0-2.0); WBC, URINE AUTO 138 /HPF (0-3)
[2023-12-22 20:05] VITALS: BP 140/75; TEMP 97.7; O2SAT 81
[2023-12-22] MEDS: QUEtiapine FUMARATE 12.5 MG HALF-TAB PO SCH (20:19)
[2023-12-23 04:44] VITALS: BP 131/67; TEMP 97.5; O2SAT 97
[2023-12-23 06:15] LABS: MEAN CORPUSCULAR HEMOGLOBIN 29.3 pg (27.0-33.0); MEAN CORPUSCULAR HGB CONC 32.3 g/dl (32.0-36.5); MEAN CORPUSCULAR VOLUME 90.9 fl (80.0-96.0); PLATELET COUNT, AUTOMATED 187 10^3/uL (150-450); RED BLOOD COUNT 3.41 10^6/uL (4.00-5.40); WHITE BLOOD COUNT 12.9 10^3/uL (4.0-10.0)
[2023-12-23 06:44] LABS: ALBUMIN 2.5 G/DL (3.2-5.2); ALKALINE PHOSPHATASE 400 U/L (46-116); ALT/SGPT 43 U/L (7.0-40); AST/SGOT 716 U/L (<34); BILIRUBIN,TOTAL 0.5 MG/DL (0.3-1.2); BLOOD UREA NITROGEN 37 MG/DL (9-23); CALCIUM LEVEL 7.9 MG/DL (8.3-10.6); CARBON DIOXIDE LEVEL 26 MMOL/L (20-31); CHLORIDE LEVEL 105 MMOL/L (98-107); CREATININE FOR GFR 0.67 MG/DL (0.55-1.30); GLOMERULAR FILTRATION RATE > 60.0 (>32); GLUCOSE, FASTING 122 MG/DL (74-106); POTASSIUM SERUM 4.2 MMOL/L (3.5-5.1); SODIUM LEVEL 140 MMOL/L (136-145)
[2023-12-23] MEDS: CEPHALEXIN 250MG CAPSULE PO SCH (12:30)
[2023-12-23 14:31] VITALS: BP 126/75; TEMP 98.1; O2SAT 88
[2023-12-23 18:07] VITALS: BP 152/75
[2023-12-23 20:02] VITALS: BP 151/76; TEMP 97.7; O2SAT 89
[2023-12-24 04:25] VITALS: BP 115/59; TEMP 98.1; O2SAT 96
[2023-12-24 08:53] LABS: HEMATOCRIT 28.1 % (36.0-47.0); MEAN CORPUSCULAR VOLUME 90.6 fl (80.0-96.0); PLATELET COUNT, AUTOMATED 136 10^3/uL (150-450); WHITE BLOOD COUNT 12.5 10^3/uL (4.0-10.0)
[2023-12-24 09:26] LABS: ALBUMIN 2.2 G/DL (3.2-5.2); ALKALINE PHOSPHATASE 406 U/L (46-116); ALT/SGPT 45 U/L (7.0-40); AST/SGOT 734 U/L (<34); BILIRUBIN,TOTAL 0.7 MG/DL (0.3-1.2); BLOOD UREA NITROGEN 27 MG/DL (9-23); CALCIUM LEVEL 7.5 MG/DL (8.3-10.6); CARBON DIOXIDE LEVEL 25 MMOL/L (20-31); CHLORIDE LEVEL 103 MMOL/L (98-107); CREATININE FOR GFR 0.65 MG/DL (0.55-1.30); GLOMERULAR FILTRATION RATE > 60.0 (>32); GLUCOSE, FASTING 140 MG/DL (74-106); POTASSIUM SERUM 4.1 MMOL/L (3.5-5.1); SODIUM LEVEL 136 MMOL/L (136-145); TOTAL PROTEIN 5.5 G/DL (5.7-8.2)
[2023-12-24 12:13] VITALS: BP 148/72; TEMP 97; O2SAT 99
[2023-12-24] MEDS ORDERED: MORPHINE 10MG/0.5ML ORAL CONCENTRATE SOLUTION U/D SL PRN (14:45)
[2023-12-24 20:17] VITALS: BP 151/80; TEMP 97.7; O2SAT 100
[2023-12-25 04:33] VITALS: BP 134/74; TEMP 97.5; O2SAT 98
[2023-12-25 06:11] VITALS: BP 134/74
[2023-12-25 06:26] LABS: HEMATOCRIT 30.3 % (36.0-47.0); HEMOGLOBIN 9.6 g/dl (12.0-15.5); MEAN CORPUSCULAR HEMOGLOBIN 29.1 pg (27.0-33.0); MEAN CORPUSCULAR HGB CONC 31.7 g/dl (32.0-36.5); MEAN CORPUSCULAR VOLUME 91.8 fl (80.0-96.0); PLATELET COUNT, AUTOMATED 140 10^3/uL (150-450); WHITE BLOOD COUNT 13.2 10^3/uL (4.0-10.0)
[2023-12-25] MEDS ORDERED: ATIV1TAB10 PO (07:11)
[2023-12-25] MEDS ORDERED: MORP1SOL5 PO (07:11)
[2023-12-25] MEDS ORDERED: HYOS125TA PO (07:11)
[2023-12-25 07:40] LABS: ALKALINE PHOSPHATASE 360 U/L (46-116); ALT/SGPT 39 U/L (7.0-40); AST/SGOT 410 U/L (<34); BILIRUBIN,TOTAL 0.8 MG/DL (0.3-1.2); BLOOD UREA NITROGEN 25 MG/DL (9-23); CALCIUM LEVEL 7.6 MG/DL (8.3-10.6); CARBON DIOXIDE LEVEL 26 MMOL/L (20-31); CHLORIDE LEVEL 103 MMOL/L (98-107); CREATININE FOR GFR 0.56 MG/DL (0.55-1.30); GLOMERULAR FILTRATION RATE > 60.0 (>32); GLUCOSE, FASTING 151 MG/DL (74-106); POTASSIUM SERUM 4.4 MMOL/L (3.5-5.1); SODIUM LEVEL 136 MMOL/L (136-145); TOTAL PROTEIN 5.7 G/DL (5.7-8.2)
== END 2023-12-25 10:45 | disposition hospice, home (50) | DRG 312 ==
LOC: M ED 12:30 → M ED INP 20:46 → INTOOBSV 20:46 → M PCU 22:21 → OBSVTOIN 12-19 17:39 → M MS5PR 12-20 08:45
PROVIDERS: ADMIT Preventive Medicine Undersea and Hyperbaric Medicine; ATTEND Internal Medicine
DX: I95.1 Orthostatic hypotension (principal); C79.51 Secondary malignant neoplasm of bone; I50.32 Chronic diastolic (congestive) heart failure; I47.20 Ventricular tachycardia, unspecified; J84.9 Interstitial pulmonary disease, unspecified; N39.0 Urinary tract infection, site not specified; F11.121 Opioid abuse with intoxication delirium; E03.9 Hypothyroidism, unspecified; C50.919 Malignant neoplasm of unspecified site of unspecified female breast; I11.0 Hypertensive heart disease with heart failure; I48.91 Unspecified atrial fibrillation; J45.909 Unspecified asthma, uncomplicated; Z79.01 Long term (current) use of anticoagulants; Z85.850 Personal history of malignant neoplasm of thyroid; Z86.718 Personal history of other venous thrombosis and embolism; R62.7 Adult failure to thrive; Z66 Do not resuscitate; Z88.8 Allergy status to other drugs, medicaments and biological substances; Z79.899 Other long term (current) drug therapy; Z95.0 Presence of cardiac pacemaker

== ENCOUNTER 2023-12-20 09:18 | Outpatient (RCR) | payer MEDICARE ==
[~2023-12-20 09:18] MED LIST changes: +ACET650T3 PO
[2023-12-25] MEDS ORDERED: MORP1SOL5 PO (07:11)
[2023-12-25] MEDS ORDERED: ATIV1TAB10 PO (07:11)
[2023-12-25] MEDS ORDERED: HYOS125TA PO (07:11)
== END 2024-01-12 ==
LOC: M ONCR 09:18
PROVIDERS: ATTEND General Practice
DX: Z51.0 Encounter for antineoplastic radiation therapy (principal); C79.51 Secondary malignant neoplasm of bone